=== PATIENT | female | born 1950 | race Caucasian/White ===

== ENCOUNTER 2022-11-10 09:47 | Outpatient (REF) | payer OTHER, SELFPAY ==
--- NOTE | ~2022-11-10 | XR_ITS ---
EXAMINATION: XR HIP, RIGHT WITH AP PELVIS CLINICAL INFORMATION: Pain. COMPARISON: Radiographs dated 03/31/2009. TECHNIQUE: AP and frog-leg lateral views of the right hip are submitted, together with a frontal view of the pelvis. FINDINGS: There is bony demineralization. There is marked narrowing of the superior right acetabular joint space, with subchondral sclerosis and slight peripheral osteophyte formation of the articular surfaces. The left acetabular joint space is well-maintained. The femoral heads are smooth. There is no fracture or dislocation. The sacroiliac joints are symmetric and well-maintained, and the pubic symphysis is intact. No foreign body is seen. There are incompletely characterized degenerative changes of the lumbar spine. A spinal stimulator device is noted. XR/XR hip RT w PEL1V IMPRESSION: There is marked osteoarthritic change of the right hip, and no unusual degenerative change is seen of the left hip. No fracture or dislocation is seen.
== END 2022-11-10 09:48 | disposition home or self-care (01) ==
LOC: HO.HOSX 09:47
PROVIDERS: PCP Family Medicine; Referring Provider Physical Medicine & Rehabilitation; Visit Provider Physician Assistant
DX: M53.3 Sacrococcygeal disorders, not elsewhere classified (principal); M54.50 Low back pain, unspecified; G89.29 Other chronic pain
CPT/HCPCS: 73502

== ENCOUNTER 2022-11-10 09:47 | Outpatient (AMB) | payer OTHER, SELFPAY ==
--- NOTE | 2022-11-10 10:25 | HO.SPINEOV ---
Intake Intake Visit Reasons: Disorder of sacrum Intake Note: Ms. Soria is here today c/o low back to buttock pain. MRI done @ [place]. Wash Barrel Leader Required: No Allergies ampicillin Allergy (Unknown, Verified 12/27/21 10:18) swelling cephalexin [Keflex] Allergy (Unknown, Verified 12/27/21 10:18) unknown Clindamycin HCl Allergy (Unknown, Unverified 12/27/21 10:18) itching oxaprozin [Daypro] Allergy (Unknown, Verified 12/27/21 10:18) unknown penicillin G Allergy (Unknown, Verified 12/27/21 10:18) Rash, itching and swelling in limbs penicillin V Allergy (Unknown, Verified 12/27/21 10:18) swelling Sulfa (Sulfonamide Antibiotics) Allergy (Unknown, Unverified 12/27/21 10:18) redness/fever tetracycline Allergy (Unknown, Unverified 12/27/21 10:18) SOB Assessment & Plan Assessment & Plan (1) Back pain: Code(s): M54.9 - Dorsalgia, unspecified Plan Dear Dr Flores, Thank you for referring Mrs Soria to our office today. This is a 72-year-old female presents to the office today for evaluation of a pain in her low back that goes down into her right groin anteriorly into her anterior thigh in her knee. The symptoms started abruptly about fiber 6 years ago and have never gone away. There was no inciting event, no trauma. She has had extensive workups which have all been difficult to point in any specific diagnosis. She was seen in your office and underwent an SI joint injection and did get some temporary relief over the course of a day or 2 from an SI joint block. She is here today to see us for evaluation of that. The patient tells me that she has the pain all day every day even at night. It is related to activity and standing but does not necessarily go away when she sits down. Sleeping is very difficult. She has undergone trials of anti-inflammatories, Tylenol. She did try gabapentin but it made her gain weight. She ultimately underwent spinal cord stimulator as well and that does help a little bit. She does not have any recent imaging to discuss today. PMH: She has a very complicated medical history, including diabetes, familial Mediterranean fever, fibromyalgia, chronic fatigue, restless legs, hematoma [place] psis, hypothyroidism, IBS, GERD, hypertension, high cholesterol, previous anterior cervical fusion, sleep apnea, cirrhosis of the liver of unknown origin, she has a cardiomyopathy but tells me that her heart function is okay, she has had multiple orthopedic surgeries, she has also had multiple abdominal surgeries related to the familial Mediterranean fever. She has history of shoulder replacement, spinal cord stimulator Social hx: She does not smoke Medications: Medications include insulin, levothyroxine, nitroglycerin, [place] loperamide, olopatadine eyedrops, pr max of Kurt, problem statin, Lipitor, metoprolol, B12 shot, baclofen, cetirizine, colchicine, diclofenac, duloxetine, famotidine, Flonase, hydrochlorothiazide, Ozempic Allergies: See the [employer] list for her allergies Physical exam: She is awake alert oriented no acute distress, she does have difficulty standing up and does point to pain in her lower back, she does have some finger Kenney positive test but she does diffusely point to her low back when she describes her back pain. On motor exam she has full strength, she has a tremendous amount of pain with internal and external rotation of her right hip. She also has contralateral positive KAYLIE sign giving her pain in her low back when she uses her left leg for testing giving her centralized low back pain. Reflexes are normal. Imaging review: I have an old lumbar MRI showing degenerative disc disease at L4-5 Impression: This is a complicated 72-year-old woman with spontaneous onset of pain in her low back going into her right anterior groin down her right anterior thigh into her knee for about 5-6 years which has never gone away or gotten better. No and has been able to exactly explain her what the diagnosis is. She tells me that she has had an extensive workup. The only thing that seems to have given her little bit of relief was an SI joint injection. She also had a spinal cord stimulator placed which also was given her little bit of relief. She did all the other conservative management therapies including PT etc. medication trials. On my physical exam, she has a tremendous amount of pain localizing over her right hip with internal and external rotation so I would like to get a right hip x-ray just to confirm that this is not part of the clinical presentation. She does have some physical exam findings compatible with SI joint irritation but describes to me diffuse low back pain and does not really localize it to 1 side or the other. I would like to get a lumbar MRI more updated to evaluate the status of her low back as some of her symptoms do sound radicular. Once I have the hip x-rays and a lumbar MRI I will see her back in the office. The patient will need to have someone from the spinal cord stimulator company approve that she can actually get an MRI. If not we will get a CT scan of her back. Thank you for allowing us to care for your patient. The total time spent with this visit with this patient was 45 minutes reviewing history, physical exam, lumbar imaging review, and implementation of treatment plan or further diagnostic testing Ariel Hernández MD,PhD [facility] Orders: Orders XR pelvis min 3V Today G89.29 - Other chronic pain, M53.3 - Sacrococcygeal disorders, not elsewhere classified XR hip RT min 2V Today G89.29 - Other chronic pain, M53.3 - Sacrococcygeal disorders, not elsewhere classified MR lumbar spine wo con Today M54.9 - Dorsalgia, unspecified Coding Level of Care Code New Pt Level 4 (87032) Diagnoses Back pain M54.9
== END 2022-11-10 11:59 | disposition home or self-care (01) ==
PROVIDERS: PCP Family Medicine; Referring Provider Physical Medicine & Rehabilitation; Visit Provider Physician Assistant
DX: M54.9 Dorsalgia, unspecified (principal)
CPT/HCPCS: 99204

== ENCOUNTER 2022-11-23 07:38 | Outpatient (REF) | payer OTHER, SELFPAY ==
--- NOTE | ~2022-11-23 | XR_ITS ---
EXAMINATION: XR HIP, RIGHT CLINICAL INFORMATION: Pain COMPARISON: Hip radiographs 11/02/2022 TECHNIQUE: Two views of the right hip. FINDINGS: No acute fracture or dislocation. Advanced degenerative changes of the hip with complete loss of superolateral joint space, subchondral sclerosis and cystic change and mild lateral subluxation of the femoral head with respect to the acetabulum. Partially imaged generator device overlies the left hemipelvis. Degenerative disc disease in the visualized lower lumbosacral spine. Soft tissues are unremarkable. XR/XR hip RT min 2V IMPRESSION: Advanced degenerative changes of the right hip.
== END 2022-11-23 07:39 | disposition home or self-care (01) ==
LOC: HO.HOSX 07:38
PROVIDERS: Visit Provider Orthopaedic Surgery
DX: M16.11 Unilateral primary osteoarthritis, right hip (principal)
CPT/HCPCS: 73502

== ENCOUNTER 2022-11-23 07:59 | Outpatient (AMB) | payer OTHER, SELFPAY ==
--- NOTE | 2022-11-23 08:07 | MHC.OFFVIS ---
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 Patient reports that she has had ongoing right hip pain for about 10-15 years now. She reports that she has history of arthrogram as well as SI injections. SI injections were more helpful than the arthrogram. The injections only lasted about a week. Her pain is felt in the groin and wraps around the lateral aspect of the hip to the upper buttoc region, Pain radiates down the leg while weight bearing. She has numbness and tingling, but she believed this may be due to her spine. The patient has difficulty walking even short distances because of her hip pain and low back pain. She does walk with a cane. Allergies ampicillin Allergy (Unknown, Verified 12/27/21 10:18) swelling cephalexin [Keflex] Allergy (Unknown, Verified 12/27/21 10:18) unknown Clindamycin HCl Allergy (Unknown, Unverified 12/27/21 10:18) itching oxaprozin [Daypro] Allergy (Unknown, Verified 12/27/21 10:18) unknown penicillin G Allergy (Unknown, Verified 12/27/21 10:18) Rash, itching and swelling in limbs penicillin V Allergy (Unknown, Verified 12/27/21 10:18) swelling Sulfa (Sulfonamide Antibiotics) Allergy (Unknown, Unverified 12/27/21 10:18) redness/fever tetracycline Allergy (Unknown, Unverified 12/27/21 10:18) SOB Medication List - Last Reviewed 11/23/22 by Stephanie Chacon, [facility] albuterol sulfate 90 mcg/actuation 0 mcg inhalation atorvastatin 20 mg PO DAILY baclofen 10 mg PO QID bisacodyl (Gentle Laxative (bisacodyl)) 20 mg PO DAILY blood sugar diagnostic ([employer] Verio test strips) As directed colchicine (gout) 0.6 mg PO DAILY cyanocobalamin (vitamin B-12) (Vitamin B-12) 1,000 mcg PO DAILY epinephrine IM famotidine 40 mg PO BID fluticasone propionate 50 mcg/actuation sprays intranasal hydrochlorothiazide 12.5 mg PO DAILY levothyroxine 125 mcg PO DAILY lisinopril 20 mg PO DAILY metoprolol succinate ER 25 mg PO DAILY nitroglycerin 0 mg sublingual pen needle, diabetic (BD Sun 2nd Gen Pen Needle) As directed pioglitazone 15 mg PO DAILY pramipexole 0.5 mg PO BID semaglutide (Ozempic) mg subcut sumatriptan succinate 100 mg PO DAILY PRN PFSH Medical History Chronic fatigue Cirrhosis COPD (chronic obstructive pulmonary disease) Diabetes Fibromyalgia GERD (gastroesophageal reflux disease) HTN (hypertension) Hypothyroidism IBS (irritable bowel syndrome) Mediterranean fever Obstructive sleep apnea Restless legs syndrome (RLS) TMJ (dislocation of temporomandibular joint) Surgical History H/O abdominal surgery H/O breast surgery Hx of cervical spine surgery Hx of shoulder replacement S/P insertion of spinal cord stimulator Family History Sister Arthritis Father Clot Other Muscular dystrophy Social History Alcohol intake: never Patient Tobacco Use Status: Never used Tobacco Current occupational status: disabled Physical Exam Vital Signs: BMI result Body Mass Index 29.8 Const Other: Well-nourished well-developed very friendly female awake alert and oriented x3 in no acute distress Extrem Other: Bilateral lower extremity examination shows good capillary refill, no skin lesions noted, normal sensation light touch Right hip examination shows decreased range of motion when compared to her left hip, pain with range of motion, no tenderness over her bursa Results Reviewed Results Reviewed: X-rays of the patient's right hip taken today show severe joint space narrowing with grade 4 [id number] arthritis, subchondral sclerosis, osteophyte formation, no acute bony abnormalities Assessment & Plan Assessment & Plan (1) Arthritis of right hip: Code(s): M16.11 - Unilateral primary osteoarthritis, right hip Plan Ms. Soria presents with right hip pain due to degenerative joint disease as well as low back pain and right sacroiliac pain. I had a lengthy discussion with the patient regarding the treatment options. The patient wishes to hold off on right total hip replacement surgery for as long as possible. I agree with this plan. She will continue with her home exercise program. She will follow up with her back specialist as scheduled. She will follow up with me on an as-needed basis should her right hip pain worsen. Feel free to call me at any time should questions regarding her orthopedic management arise. Thank you very much for asking me to see this very friendly patient. I spent 22 minutes in reviewing the patient's records and imaging studies, seeing the patient and documenting in the medical record. Orders: Orders XR hip RT min 2V Today M25.551 - Pain in right hip Coding Level of Care Code New Pt Level 2 (17983) Diagnoses Arthritis of right hip M16.11
[2022-11-23 08:11] VITALS: BMI 29.8
== END 2022-11-23 08:30 | disposition home or self-care (01) ==
PROVIDERS: PCP Family Medicine; Visit Provider Orthopaedic Surgery
DX: M16.11 Unilateral primary osteoarthritis, right hip (principal)
CPT/HCPCS: 99202

== ENCOUNTER 2023-02-14 08:04 | Outpatient (REF) | payer OTHER, SELFPAY ==
--- NOTE | ~2023-02-14 | MR_ITS ---
EXAMINATION: MR LUMBAR SPINE WITHOUT CONTRAST CLINICAL INFORMATION: Low back pain and leg pain with tingling. The patient states right-sided symptoms. COMPARISON: There are no prior studies available for comparison at time of dictation. TECHNIQUE: MRI of the lumbar spine was obtained using routine sequences without contrast. FINDINGS: VERTEBRAL BODIES AND PARASPINAL STRUCTURES: There is a sigmoid scoliosis which is convex to the right at L1-L2 and toward the left at L4. There is mild rightward subluxation of L2 on L3. There is a 2 mm grade 1 anterolisthesis of L4 on L5. There are mild retrolistheses of L1 on L2 and L2 on L3. There is multilevel narrowing of intervertebral disc height which is most severe on the left at L1-L2 and on the right at L3-L4 and L4-L5. There are multilevel degenerative endplate contour changes. Mild edematous endplate signal is seen toward the left at L2-L3 and toward the right at L1-L2 and L4-L5. There are Schmorl's nodes at multiple levels, most prominent at L1-L2 and L2-L3. Vertebral body heights are maintained, and no fractures are demonstrated. The visualized retroperitoneal and pelvic structures are unremarkable. There is susceptibility artifact in the left paraspinal soft tissues laterally, consistent with a previously described stimulator. There is susceptibility artifact from the stimulator leads extending cephalad. CONUS MEDULLARIS AND CAUDA EQUINA: Normal, terminating at the level of L1. The lower thoracic spinal cord appears normal. The cauda equina nerve roots appear normal. There is mild fat in a non-thickened filum terminale.. SPINAL LEVELS: T10-T11: On the sagittal images there is a posterior disc protrusion with an extruded component extending cephalad behind the body of T10 with some effacement of CSF ventral to the cord, but without definite spinal cord compression. The neural foramina appear patent bilaterally. T11-T12: There is a small posterior disc protrusion extending into the right neural foramen without definite exiting nerve root impingement. There is no central stenosis. L1-L2: The facet joints appear normal bilaterally. There is a broad-based posterior disc protrusion which flattens the ventral thecal sac but there is no central stenosis. There is a left foraminal disc protrusion extending far laterally with impingement on the exiting and extra foraminal segments of the left L1 nerve root. L2-L3: There is moderate bilateral facet arthropathy. There is a shallow posterior disc protrusion with minimal mass effect on the ventral thecal sac and there is no central stenosis. The neural foramina are patent bilaterally. L3-L4: There is severe bilateral facet arthropathy with ligamenta flava hypertrophy. There is a central and left-sided disc protrusion without definite exiting nerve root impingement. There is no central stenosis. L4-L5: There is markedly severe bilateral facet arthropathy. There is unroofing of the disc as a result of the anterolisthesis. There is a right foraminal disc protrusion with impingement on the exiting right L4 nerve root. There is mild narrowing of the right subarticular recess. There is no central stenosis. L5-S1: There is markedly severe left and severe right facet arthropathy. There is a shallow posterior disc protrusion with minimal mass effect on the ventral thecal sac. There is a small extruded component extending behind the body of L5 in the midline. There are inferior foraminal disc protrusions bilaterally with annular fissures, without definite exiting nerve root impingement. There is no central stenosis. MR/MR lumbar spine wo con IMPRESSION: 1. At L1-L2 there is a posterior disc protrusion extending far laterally with impingement on the exiting and extraforaminal segments of the left L1 nerve root. There is no central stenosis. 2. At L4-L5 there is markedly severe facet arthropathy and there is an anterolisthesis. There is a right foraminal disc protrusion impinging on the exiting right L4 nerve root. There is no central stenosis. 3. At L5-S1 there is markedly severe left and severe right facet arthropathy. There is a shallow posterior disc protrusion with a small extruded component. There is no central stenosis or foraminal nerve root impingement. 4. Spondylitic and facet arthropathic changes are also demonstrated at other levels in the lower thoracic and in the lumbar spine as described above. 5. Susceptibility artifact from a stimulator generator and stimulator leads is partially demonstrated.
== END 2023-02-14 08:05 | disposition home or self-care (01) ==
LOC: HO.MRI 08:04
PROVIDERS: PCP Family Medicine; Visit Provider Physician Assistant
DX: M54.9 Dorsalgia, unspecified (principal)
CPT/HCPCS: 72148

== ENCOUNTER 2023-03-02 11:25 | Outpatient (AMB) | payer OTHER, SELFPAY ==
--- NOTE | 2023-03-02 11:27 | HO.SPINEOV ---
Intake Intake Visit Reasons: MRI follow up Intake Note: Ms. Soria is her today to discuss the results of her MRI. Hourly Sign Language Interpreter Required: No Allergies ampicillin Allergy (Unknown, Verified 12/27/21 10:18) swelling cephalexin [Keflex] Allergy (Unknown, Verified 12/27/21 10:18) unknown Clindamycin HCl Allergy (Unknown, Unverified 12/27/21 10:18) itching oxaprozin [Daypro] Allergy (Unknown, Verified 12/27/21 10:18) unknown penicillin G Allergy (Unknown, Verified 12/27/21 10:18) Rash, itching and swelling in limbs penicillin V Allergy (Unknown, Verified 12/27/21 10:18) swelling Sulfa (Sulfonamide Antibiotics) Allergy (Unknown, Unverified 12/27/21 10:18) redness/fever tetracycline Allergy (Unknown, Unverified 12/27/21 10:18) SOB Assessment & Plan Assessment & Plan (1) Chronic SI joint pain: Code(s): M53.3 - Sacrococcygeal disorders, not elsewhere classified; G89.29 - Other chronic pain Plan Mrs Soria is here in follow up today. She has a complicated history, please refer to my previous note for all of her medical conditions. She is here today to follow-up on her MRI done at [place]. Her main complaints are back pain and right hip pain going down into her anterior thigh. The symptoms are aggravated with standing walking but do not necessarily go away when she sits down. Her MRI shows diffuse arthritis of the lumbar spine, worse at L1-2 and L2-3 with scoliotic curvature and a grade 1 spondylolisthesis at L4-5. I do not see any significant foraminal or central canal stenosis. As outlined in my previous note, the patient has overlap of multiple potential pain sources. The MRI confirms as I suspected that she has arthritis of her lower back. She has a multi day level degenerative disc problem which is typically the hardest to treat with surgery as it would involve a multilevel instrumented fusion. She has severe right hip arthritis and is a candidate for total hip arthroplasty. She is followed by Dr. Ramos for this. She has also had some temporary relief from an SI joint injection done by Dr. Flores at [facility]. From the standpoint of her complaints, it sounds to me like the right hip pain with walking seems to be the main pain generator in her life. Explained to her that she can have overlapping problems with multiple arthritic areas of her body which may compound on each other. I told her that I think she should consider getting her hip done 1st and see if that does not give her enough relief over the area of the hip and groin and thigh that she may not end up needing an extensive lumbar fusion. She is going to have Dr. Ramos re-evaluate her. I think the SI joint inflammation is likely a side effect of the hip arthritis and the scoliosis. Total amount of time spent in this visit was 20 minutes in discussion of symptoms, lumbar MRI imaging results and subsequent plan of care Ariel Hernández MD,PhD [facility] Orders: Orders XR lumbar spine 4V min Today G89.29 - Other chronic pain, M53.3 - Sacrococcygeal disorders, not elsewhere classified Coding Level of Care Code Est Pt Level 3 (43875) Diagnoses Chronic SI joint pain M53.3; G89.29
== END 2023-03-02 12:02 | disposition home or self-care (01) ==
PROVIDERS: PCP Family Medicine; Visit Provider Physician Assistant
DX: M53.3 Sacrococcygeal disorders, not elsewhere classified (principal); G89.29 Other chronic pain
CPT/HCPCS: 99213

== ENCOUNTER 2023-03-02 11:25 | Outpatient (REF) | payer OTHER, SELFPAY ==
--- NOTE | ~2023-03-02 | XR_ITS ---
EXAMINATION: XR LUMBOSACRAL SPINE WITH OBLIQUES CLINICAL INFORMATION: Sacrococcygeal disorders, not elsewhere classified. COMPARISON: None available. TECHNIQUE: AP, both oblique, and lateral views of the lumbar spine. Lateral view of the lumbosacral junction. FINDINGS: There is bony demineralization. There is a moderate thoracolumbar dextroscoliosis. There is multi-level thoracolumbar degenerative disc disease and spondylosis. Degenerative disc disease is most pronounced leftward at T12-L1 and L1-L2, where it is moderate, and rightward as L4-L5, where it is marked. No acute fracture or spondylolisthesis is seen. There is multi-level lumbar spondylosis and facet arthropathy. There are aortoiliac atherosclerotic calcifications. A thoracic spinal stimulator device is noted. There are aortoiliac atherosclerotic calcifications. XR/XR lumbar spine 4V min IMPRESSION: 1. There is a moderate thoracolumbar dextroscoliosis. 2. There is multi-level thoracolumbar degenerative disc disease, spondylosis and facet arthropathy. Degenerative disc disease is particularly pronounced at T12-L1, L1-L2 and L4-L5.
== END 2023-03-02 11:26 | disposition home or self-care (01) ==
LOC: HO.HOSX 11:25
PROVIDERS: PCP Family Medicine; Visit Provider Physician Assistant
DX: M53.3 Sacrococcygeal disorders, not elsewhere classified (principal); G89.29 Other chronic pain
CPT/HCPCS: 72110

== ENCOUNTER 2023-03-14 13:58 | Outpatient (AMB) | payer OTHER, SELFPAY ==
--- NOTE | 2023-03-14 14:01 | MHC.OFFVIS ---
Intake Intake Visit Reasons: ov- Arthritis of right hip Intake Note: Meron is a 72 year old female who presents today for a follow up visit for her right hip pain. She describes her hip pain as sharp and severe in nature, 01/23. Her pain has gotten worse over the last few years in spite of continued non operative treatments. Most of the pain is located within her right groin. She has done physical therapy for 12 weeks over the last 6 months which aggravated her pain. She walks with a cane because of her pain. She has tried Tylenol and anti-inflammatory medicines which gave her minimal relief. She has difficulty walking even short distances because of her pain. At this point her right hip pain is interfering with her activities of daily living and her of the sleep well through the night. Allergies ampicillin Allergy (Unknown, Verified 03/14/23 14:05) swelling cephalexin [Keflex] Allergy (Unknown, Verified 03/14/23 14:05) unknown Clindamycin HCl Allergy (Unknown, Verified 03/14/23 14:05) itching oxaprozin [Daypro] Allergy (Unknown, Verified 03/14/23 14:05) unknown penicillin G Allergy (Unknown, Verified 03/14/23 14:05) Rash, itching and swelling in limbs penicillin V Allergy (Unknown, Verified 03/14/23 14:05) swelling Sulfa (Sulfonamide Antibiotics) Allergy (Unknown, Verified 03/14/23 14:05) redness/fever tetracycline Allergy (Unknown, Verified 03/14/23 14:05) SOB Medication List - Last Reconciled 03/14/23 by Archie Ramos MD albuterol sulfate 90 mcg/actuation 0 mcg inhalation atorvastatin 20 mg PO DAILY baclofen 10 mg PO QID bisacodyl (Gentle Laxative (bisacodyl)) 20 mg PO DAILY blood sugar diagnostic ([employer] Verio test strips) As directed cyanocobalamin (vitamin B-12) (Vitamin B-12) 1,000 mcg PO DAILY epinephrine IM famotidine 40 mg PO BID fluticasone propionate 50 mcg/actuation sprays intranasal hydrochlorothiazide 12.5 mg PO DAILY levothyroxine 125 mcg PO DAILY lisinopril 20 mg PO DAILY metoprolol succinate ER 25 mg PO DAILY nitroglycerin 0 mg sublingual pen needle, diabetic (BD Sun 2nd Gen Pen Needle) As directed pioglitazone 15 mg PO DAILY pramipexole 0.5 mg PO BID semaglutide (Ozempic) mg subcut sumatriptan succinate 100 mg PO DAILY PRN PFSH Medical History Chronic fatigue Cirrhosis COPD (chronic obstructive pulmonary disease) Diabetes Fibromyalgia GERD (gastroesophageal reflux disease) HTN (hypertension) Hypothyroidism IBS (irritable bowel syndrome) Mediterranean fever Obstructive sleep apnea Restless legs syndrome (RLS) TMJ (dislocation of temporomandibular joint) Surgical History H/O abdominal surgery H/O breast surgery Hx of cervical spine surgery Hx of shoulder replacement S/P insertion of spinal cord stimulator Family History Sister Arthritis Father Clot Other Muscular dystrophy Social History Alcohol intake: never Patient Tobacco Use Status: Never used Tobacco Current occupational status: disabled Physical Exam Const Other: Well-nourished well-developed very friendly female awake alert and oriented x3 in no acute distress Extrem Other: Bilateral lower extremity examination shows good capillary refill, no skin lesions noted, normal sensation light touch Right hip examination shows decreased range of motion when compared to her left hip, pain with range of motion, no tenderness over her bursa Results Reviewed Results Reviewed: X-rays of the patient's right hip show end-stage degenerative joint disease with grade 4 [id number] arthritis, subchondral sclerosis, osteophyte formation, no acute bony abnormalities Assessment & Plan Assessment & Plan (1) Arthritis of right hip: Code(s): M16.11 - Unilateral primary osteoarthritis, right hip Plan Ms. Soria presents with progressively worsening right hip pain due to end-stage degenerative joint disease. I had a lengthy discussion with the patient regarding the treatment options. At this point she has failed continued non operative treatments. The risks and benefits of right total replacement surgery were discussed at length with the patient. The patient wishes to proceed with surgery. She will be scheduled for our next available date. I will see her back 1 week prior to her surgery to answer any final questions that she might have. The patient will follow-up as instructed. Feel free to call me at any time should questions regarding her orthopedic management arise. I spent 22 minutes in reviewing the patient's records and imaging studies, seeing the patient and documenting in the medical record. Coding Level of Care Code Est Pt Level 2 (09219) Diagnoses Arthritis of right hip M16.11
== END 2023-03-14 14:43 | disposition home or self-care (01) ==
PROVIDERS: PCP Family Medicine; Visit Provider Orthopaedic Surgery
DX: M16.11 Unilateral primary osteoarthritis, right hip (principal)
CPT/HCPCS: 99212

== ENCOUNTER → 2023-03-14 13:58 | Outpatient (BNVA) | payer OTHER, SELFPAY | PROVIDERS: PCP Family Medicine; Visit Provider Orthopaedic Surgery ==

== ENCOUNTER → 2023-06-20 10:37 | Outpatient (AMB) | payer OTHER, SELFPAY ==
[2023-06-20 10:39] VITALS: BMI 29.8
--- NOTE | 2023-06-20 10:39 | MHC.OFFVIS ---
Intake Vital Signs 06/20/23 10:39 Height 5 ft 2 in Weight 163 lb BMI 29.8 Intake Visit Reasons: Preop-RT MANN 06/25/23 Intake Note: Meron is a 72 year old female who presents today with complaints of progressively worsening right hip pain. She describes her hip pain as sharp and severe in nature, 01/23. Her pain has gotten worse over the last few years in spite of continued non operative treatments. Most of the pain is located within her right groin. She has done physical therapy for 12 weeks over the last 6 months which aggravated her pain. She walks with a cane because of her pain. She has tried Tylenol and anti-inflammatory medicines which gave her minimal relief. She has difficulty walking even short distances because of her pain. At this point her right hip pain is interfering with her activities of daily living and her of the sleep well through the night. Allergies ampicillin Allergy (Intermediate, Verified 06/20/23 10:47) swelling Clindamycin HCl Allergy (Intermediate, Verified 06/20/23 10:47) itching Penicillins Allergy (Intermediate, Verified 06/20/23 10:47) rash/itching/swelling Sulfa (Sulfonamide Antibiotics) Allergy (Intermediate, Verified 06/20/23 10:47) redness/fever tetracycline Allergy (Intermediate, Verified 06/20/23 10:47) SOB cephalexin [Keflex] Allergy (Unknown, Verified 06/20/23 10:47) unknown reaction-was long ago oxaprozin [Daypro] Allergy (Unknown, Verified 06/20/23 10:47) reaction unknown Medication List - Last Reconciled 06/20/23 by Archie Ramos MD albuterol sulfate 90 mcg/actuation 1 inh inhalation Q4H PRN atorvastatin 20 mg PO BEDTIME baclofen 10 mg PO QID blood sugar diagnostic (OneTouch Verio test strips) As directed cetirizine 10 mg PO BEDTIME cholecalciferol (vitamin D3) (Vitamin D3) 50 mcg PO QAM colchicine 0.3 mg PO QAM cyanocobalamin (vitamin B-12) (Vitamin B-12) 1,000 mcg PO DAILY epinephrine 0.3 mg IM ONCE PRN famotidine 40 mg PO BID fluticasone propionate 50 mcg/actuation 1 spray intranasal DAILY hydrochlorothiazide 12.5 mg PO QAM insulin glargine (Lantus Solostar U-100 Insulin) 24 units subcut BEDTIME levothyroxine 125 mcg PO QAM loperamide 2 mg PO Q4H PRN magnesium 200 mg PO QAM metoprolol succinate ER 25 mg PO QAM nitroglycerin 0.3 mg sublingual ONCE PRN pen needle, diabetic (BD Sun 2nd Gen Pen Needle) As directed potassium chloride ER 10 mEq PO QAM sumatriptan succinate 100 mg PO DAILY PRN PFSH Medical History Scoliosis PONV (postoperative nausea and vomiting) Skin cancer Arthritis Cirrhosis Asthma Restless legs syndrome (RLS) GERD (gastroesophageal reflux disease) TMJ (dislocation of temporomandibular joint) Obstructive sleep apnea Diabetes Hypothyroidism Fibromyalgia Mediterranean fever IBS (irritable bowel syndrome) COPD (chronic obstructive pulmonary disease) Chronic fatigue HTN (hypertension) Surgical History History of esophagogastroduodenoscopy (EGD) H/O colonoscopy Hx of hysterectomy Hx of cardiac catheterization Hx of dilation and curettage S/P insertion of spinal cord stimulator H/O abdominal surgery H/O breast surgery Hx of shoulder replacement Hx of cervical spine surgery Family History Sister Arthritis Father Clot Other Muscular dystrophy Social History Are you a primary hemodialysis patient care specialist to a significant other at home: No Do you presently have visiting nurse or other home services: Yes (home health aid) Alcohol intake: never Patient Tobacco Use Status: Never used Tobacco Current occupational status: disabled Physical Exam Vital Signs: BMI result Body Mass Index 29.8 Const Other: Well-nourished well-developed very friendly female awake alert and oriented x3 in no acute distress Extrem Other: Right hip examination shows decreased range of motion when compared to her left hip, pain with range of motion, no tenderness over her bursa Results Reviewed Results Reviewed: X-rays of the patient's right hip show end-stage degenerative joint disease with grade 4 [id number] arthritis, subchondral sclerosis, osteophyte formation, no acute bony abnormalities Assessment & Plan Assessment & Plan (1) Arthritis of right hip: Code(s): M16.11 - Unilateral primary osteoarthritis, right hip Plan Ms. Soria presents with progressively worsening right hip pain due to end-stage degenerative joint disease. I had a lengthy discussion with the patient regarding the treatment options. At this point she has failed continued non operative treatments. The risks and benefits of right total hip replacement surgery were discussed at length with the patient. The patient wishes to proceed with surgery. financial services consultant will be consulted following her surgery for home physical therapy and nursing. The patient will follow-up as instructed. Feel free to call me at any time should questions regarding her orthopedic management arise. I spent 22 minutes in reviewing the patient's records and imaging studies, seeing the patient and documenting in the medical record. Coding Level of Care Code Est Pt Level 2 (48966) Diagnoses Arthritis of right hip M16.11
== END ==
PROVIDERS: PCP Family Medicine; Visit Provider Orthopaedic Surgery
DX: M16.11 Unilateral primary osteoarthritis, right hip (principal)
CPT/HCPCS: 99213

== ENCOUNTER → 2023-06-20 10:37 | Outpatient (BNVA) | payer OTHER, SELFPAY | PROVIDERS: PCP Family Medicine; Visit Provider Orthopaedic Surgery ==

== ENCOUNTER 2023-06-25 06:33 | Inpatient (IN) | payer OTHER, SELFPAY ==
[2023-06-18 12:24] VITALS: BP 147/70; PULSE 65; RESP 20; O2SAT 97; BMI 29.6
--- NOTE | 2023-06-18 12:37 | P.CONAN_ITS ---
Documented by User: Kitty Johnson NP 06/22/23 09:16 HPI - Anesthesia Eval Consult details Narrative: 72yo F for Right Hip Total Replacement, 06/25/23 Consider glidescope d/t cspine hx and TMJ Medically cleared No recent illness No CP/SOB within limits of pain Asthma/COPD. Albuterol very rare. Mediterranean fever. Follows rheum. Last office visit 03/2023. Colchicine restarted. Cirrhosis r/t FMF/colchicine. GERD. Mostly controlled with H2 block Hx of Cspine surgery. TMJ. Not that bad . Has never locked open. BLAIR. CPAP with O2 QHS DM. Blood sugar monitor. Will have on RUE. Lantus Spinal stim pack Left Hip. PMFSH Active Problems Active Problems: All Active Problems (Updated 06/18/23 @ 12:23 by Meron Núñez RN) Arthritis of right hip (Acute) Right hip pain (Acute) Chronic SI joint pain (Acute) Back pain (Acute) Occasional tremors (Acute) Vertigo (Acute) Cognitive changes (Acute) Cirrhosis (Acute) Restless legs syndrome (RLS) (Acute) GERD (gastroesophageal reflux disease) (Acute) TMJ (dislocation of temporomandibular joint) (Acute) S/P insertion of spinal cord stimulator (Acute) Obstructive sleep apnea (Acute) Diabetes (Acute) Hypothyroidism (Acute) Fibromyalgia (Acute) IBS (irritable bowel syndrome) (Acute) COPD (chronic obstructive pulmonary disease) (Acute) Chronic fatigue (Acute) HTN (hypertension) (Acute) Past Medical History Medical History Scoliosis PONV (postoperative nausea and vomiting) Skin cancer Arthritis Cirrhosis Asthma Restless legs syndrome (RLS) GERD (gastroesophageal reflux disease) TMJ (dislocation of temporomandibular joint) Obstructive sleep apnea Diabetes Hypothyroidism Fibromyalgia Mediterranean fever IBS (irritable bowel syndrome) COPD (chronic obstructive pulmonary disease) Chronic fatigue HTN (hypertension) Family History Family History Sister Arthritis Father Clot Other Muscular dystrophy Family history of problems with anesthesia: No Surgical History Surgical History History of esophagogastroduodenoscopy (EGD) H/O colonoscopy Hx of hysterectomy Hx of cardiac catheterization Hx of dilation and curettage S/P insertion of spinal cord stimulator H/O abdominal surgery H/O breast surgery Hx of shoulder replacement Hx of cervical spine surgery History of Problems with Anesthesia: Yes (PONV - scop patch works) Social History Social History Are you a primary primary care nurse practitioner to a significant other at home: No Do you presently have visiting nurse or other home services: Yes (home health aid) Alcohol intake: never Patient Tobacco Use Status: Never used Tobacco Use of substances other than those prescribed or required for medical reasons: No Have you been hit, kicked, punched, or otherwise hurt by someone within the past year? If so, by whom?: No Are you DNR?: No Advance Directives Information Provided: No (as above noted-advised to bring copy DOS) Advance Directives on File: No Recently lost weight without trying: No Eating poorly because of decreased appetite: No Nutrition Risks: No Nutritional Risk Poor oral hygiene: No (missing teeth) Current occupational status: disabled Meds Allergies Allergy/AdvReac Type Severity Reaction Status Date / Time ampicillin Allergy Intermediate swelling Verified 06/25/23 06:48 Clindamycin HCl Allergy Intermediate itching Verified 06/25/23 06:48 Penicillins Allergy Intermediate rash/itchin Verified 06/25/23 06:48 g/swelling Sulfa (Sulfonamide Allergy Intermediate redness/fev Verified 06/25/23 06:48 Antibiotics) er tetracycline Allergy Intermediate SOB Verified 06/25/23 06:48 cephalexin [Keflex] Allergy Unknown reaction Verified 06/25/23 06:48 unknown, long time ago oxaprozin [Daypro] Allergy Unknown reaction Verified 06/25/23 06:48 unknown, long time ago Home Medications Medication Instructions Recorded Confirmed Last Taken Type albuterol sulfate 90 mcg/actuation 1 inh inhalation Q4H PRN Shortness 12/27/21 06/25/23 06/25/23 History aerosol inhaler Of Breath Or Wheezing atorvastatin 20 mg tablet 20 mg PO BEDTIME 12/27/21 06/25/23 06/24/23 History baclofen 10 mg tablet 10 mg PO TID 12/27/21 06/25/23 06/24/23 History blood sugar diagnostic (OneTouch #10 ea 12/27/21 06/20/23 Unknown History Verio test strips) epinephrine 0.3 mg/0.3 mL 0.3 mg IM ONCE PRN Anaphylaxis 12/27/21 06/20/23 Unknown History injection, auto-injector famotidine 40 mg tablet 40 mg PO BID 12/27/21 06/25/23 06/25/23 History fluticasone propionate 50 1 spray intranasal DAILY 12/27/21 06/25/23 06/24/23 History mcg/actuation nasal spray,suspension hydrochlorothiazide 12.5 mg tablet 12.5 mg PO QAM 12/27/21 06/25/23 06/23/23 History levothyroxine 125 mcg tablet 125 mcg PO QAM 12/27/21 06/25/23 06/25/23 History metoprolol succinate 25 mg 25 mg PO QAM 12/27/21 06/25/23 06/25/23 History tablet,extended release 24 hr nitroglycerin 0.3 mg sublingual 0.3 mg sublingual ONCE PRN Acid 12/27/21 06/25/23 Unknown History tablet Reflux pen needle, diabetic 32 gauge x #50 ea 12/27/21 06/20/23 Unknown History (BD Sun 2nd Gen Pen Needle) sumatriptan succinate 100 mg tablet 100 mg PO DAILY PRN Migraine 12/27/21 06/25/23 06/18/23 History Headache cetirizine 10 mg tablet 10 mg PO BEDTIME 06/18/23 06/25/23 06/24/23 History cholecalciferol (vitamin D3) 50 50 mcg PO QAM 06/18/23 06/25/23 06/24/23 History mcg (2,000 unit) capsule (Vitamin D3) colchicine 0.6 mg tablet 0.3 mg PO QAM 06/18/23 06/25/23 06/24/23 History insulin glargine 100 unit/mL (3 24 unit subcut BEDTIME 06/18/23 06/25/23 19:00 History mL) subcutaneous pen (Lantus 12 units Solostar U-100 Insulin) loperamide 2 mg capsule 2 mg PO Q4H PRN Loose Stool 06/18/23 06/20/23 Unknown History magnesium 200 mg tablet 200 mg PO QAM 06/18/23 06/25/23 06/18/23 History potassium chloride 10 mEq 10 meq PO QAM 06/18/23 06/25/23 06/18/23 History tablet,extended release Exam Height,Weight and Vital Signs: Height 5 ft 2 in Weight 73.5 kg Last Vital Signs Pulse 65 06/18/23 12:24 Resp 20 06/18/23 12:24 BP 147/70 H 06/18/23 12:24 Pulse Ox 97 06/18/23 12:24 O2 Del Method Room Air 06/18/23 12:24 Pertinent Lab Results Pertinent Lab Results: CBC and BMP 06/15/23 from outside facility [facility] Lab Results 06/18/23 06/18/23 Range/Units 13:11 13:19 PT 11.6 (11.1-13.3) SEC INR 1.0 (0.9-1.1) Total Bilirubin 0.3 (0.0-1.0) mg/dL Direct Bilirubin 0.1 (0.0-0.5) mg/dL AST 17 (5-31) U/L ALT 23 (0-31) U/L Alkaline Phosphatase 98 (39-117) U/L Total Protein 7.2 (6.5-8.0) g/dL Albumin 4.4 (3.5-5.0) g/dL Blood Type A Positive Antibody Screen NEGATIVE CBC and BMP 06/15/23 from outside facility [facility] Narrative Narrative: EKG 05/2023 SR @ 67 Minor right-precordial repol Airway TM Dist: >3cm Neck ROM: Limited Loose/Missing/Broken Teeth: Yes (Missing molars and crowned molars throughout) Heart: RRR Lungs: CTAB Assessment and Plan Assessment Anesthesia Assessment: Anesthesia Plan Discussed and PAT Visit Final Anesthetic Review Family History of Problems with Anesthesia: No History of Problems with Anesthesia: Yes (PONV - scop patch works) Documented by User: April Lindsey MD 06/25/23 08:15 PMFSH Past Medical History Medical History Scoliosis PONV (postoperative nausea and vomiting) Skin cancer Arthritis Cirrhosis Asthma Restless legs syndrome (RLS) GERD (gastroesophageal reflux disease) TMJ (dislocation of temporomandibular joint) Obstructive sleep apnea Diabetes Hypothyroidism Fibromyalgia Mediterranean fever IBS (irritable bowel syndrome) COPD (chronic obstructive pulmonary disease) Chronic fatigue HTN (hypertension) Family History Family History Sister Arthritis Father Clot Other Muscular dystrophy Surgical History Surgical History History of esophagogastroduodenoscopy (EGD) H/O colonoscopy Hx of hysterectomy Hx of cardiac catheterization Hx of dilation and curettage S/P insertion of spinal cord stimulator H/O abdominal surgery H/O breast surgery Hx of shoulder replacement Hx of cervical spine surgery Social History Social History Are you a primary primary care nurse practitioner to a significant other at home: No Do you presently have visiting nurse or other home services: Yes (home health aid) Alcohol intake: never Patient Tobacco Use Status: Never used Tobacco Use of substances other than those prescribed or required for medical reasons: No Have you been hit, kicked, punched, or otherwise hurt by someone within the past year? If so, by whom?: No Are you DNR?: No Advance Directives Information Provided: No (as above noted-advised to bring copy DOS) Advance Directives on File: No Recently lost weight without trying: No Eating poorly because of decreased appetite: No Nutrition Risks: No Nutritional Risk Poor oral hygiene: No (missing teeth) Current occupational status: disabled Meds Allergies Allergy/AdvReac Type Severity Reaction Status Date / Time ampicillin Allergy Intermediate swelling Verified 06/25/23 06:48 Clindamycin HCl Allergy Intermediate itching Verified 06/25/23 06:48 Penicillins Allergy Intermediate rash/itchin Verified 06/25/23 06:48 g/swelling Sulfa (Sulfonamide Allergy Intermediate redness/fev Verified 06/25/23 06:48 Antibiotics) er tetracycline Allergy Intermediate SOB Verified 06/25/23 06:48 cephalexin [Keflex] Allergy Unknown reaction Verified 06/25/23 06:48 unknown, long time ago oxaprozin [Daypro] Allergy Unknown reaction Verified 06/25/23 06:48 unknown, long time ago Home Medications Medication Instructions Recorded Confirmed Last Taken Type albuterol sulfate 90 mcg/actuation 1 inh inhalation Q4H PRN Shortness 12/27/21 06/25/23 06/25/23 History aerosol inhaler Of Breath Or Wheezing atorvastatin 20 mg tablet 20 mg PO BEDTIME 12/27/21 06/25/23 06/24/23 History baclofen 10 mg tablet 10 mg PO TID 12/27/21 06/25/23 06/24/23 History blood sugar diagnostic (OneTouch #10 ea 12/27/21 06/20/23 Unknown History Verio test strips) epinephrine 0.3 mg/0.3 mL 0.3 mg IM ONCE PRN Anaphylaxis 12/27/21 06/20/23 Unknown History injection, auto-injector famotidine 40 mg tablet 40 mg PO BID 12/27/21 06/25/23 06/25/23 History fluticasone propionate 50 1 spray intranasal DAILY 12/27/21 06/25/23 06/24/23 History mcg/actuation nasal spray,suspension hydrochlorothiazide 12.5 mg tablet 12.5 mg PO QAM 12/27/21 06/25/23 06/23/23 History levothyroxine 125 mcg tablet 125 mcg PO QAM 12/27/21 06/25/23 06/25/23 History metoprolol succinate 25 mg 25 mg PO QAM 12/27/21 06/25/23 06/25/23 History tablet,extended release 24 hr nitroglycerin 0.3 mg sublingual 0.3 mg sublingual ONCE PRN Acid 12/27/21 06/25/23 Unknown History tablet Reflux pen needle, diabetic 32 gauge x #50 ea 12/27/21 06/20/23 Unknown History (BD Sun 2nd Gen Pen Needle) sumatriptan succinate 100 mg tablet 100 mg PO DAILY PRN Migraine 12/27/21 06/25/23 06/18/23 History Headache cetirizine 10 mg tablet 10 mg PO BEDTIME 06/18/23 06/25/23 06/24/23 History cholecalciferol (vitamin D3) 50 50 mcg PO QAM 06/18/23 06/25/23 06/24/23 History mcg (2,000 unit) capsule (Vitamin D3) colchicine 0.6 mg tablet 0.3 mg PO QAM 06/18/23 06/25/23 06/24/23 History insulin glargine 100 unit/mL (3 24 unit subcut BEDTIME 06/18/23 06/25/23 06/24/23 19:00 History mL) subcutaneous pen (Lantus 12 units Solostar U-100 Insulin) loperamide 2 mg capsule 2 mg PO Q4H PRN Loose Stool 06/18/23 06/20/23 Unknown History magnesium 200 mg tablet 200 mg PO QAM 06/18/23 06/25/23 06/18/23 History potassium chloride 10 mEq 10 meq PO QAM 06/18/23 06/25/23 06/18/23 History tablet,extended release Exam Airway Mallampati Class: III (c spine problems , we shall intubate without extension using glide scope) Assessment and Plan Assessment Anesthesia Assessment: Chart Reviewed Final Anesthetic Review NPO: Yes ASA Class: III Final Preanesthetic Review: No Changes in Pt Med Stat, Meds/Allgs Chart Reviewed, Consent Obtained/Reviewed and Anes Risks/Benef Reviewed Patient Risk: Intermediate Procedure Risk: Intermediate Anesthetic Plan Anesthetic Plan: GA Disposition: Standard PACU
[2023-06-18 14:01] LABS: Prothrombin Time 11.6 SEC (11.1-13.3)
[2023-06-18 14:21] LABS: Alanine Aminotransferase 23 U/L (0-31); Albumin Level 4.4 g/dL (3.5-5.0); Alkaline Phosphatase 98 U/L (39-117); Aspartate Amino Transferase 17 U/L (5-31); Bilirubin Direct 0.1 mg/dL (0.0-0.5); Bilirubin Total 0.3 mg/dL (0.0-1.0); Total Protein 7.2 g/dL (6.5-8.0)
[2023-06-18 16:20] LABS: MRSA Nasal PCR NEGATIVE (Negative); SA Nasal PCR NEGATIVE (Negative)
[2023-06-25] VITALS (18 sets, daily range): BP systolic 108–180; BP diastolic 54–90; PULSE 59–100; RESP 8–18; TEMP 36.6–36.9; O2SAT 88–99
--- NOTE | ~2023-06-25 | XR_ITS ---
EXAMINATION: XR PELVIS CLINICAL INFORMATION: Right total hip arthroplasty. COMPARISON: Radiographs lumbar spine of 03/02/2023 and right hip of 11/23/2022. TECHNIQUE: AP view of the pelvis. FINDINGS: Status post right hip total arthroplasty with acetabular screw. Hardware appears intact. Moderate degenerative changes in the left hip. Electronic pack partially imaged overlying the upper aspect of the left sacroiliac joint. Moderate degenerative changes in the bilateral sacroiliac joints. XR/XR pelvis 1-2V IMPRESSION: 1. Status post right hip total arthroplasty with acetabular screw. Hardware appears intact. 2. Moderate degenerative changes in the left hip.
--- NOTE | 2023-06-25 07:09 | PHA.MEDREC ---
Pharmacy Consult ? Medication Reconciliation Pharmacy has reviewed the medication reconciliation completed by nursing.
[2023-06-25 07:22] LABS: Glucose, Whole Blood 137 mg/dL (60-115)
[2023-06-25] MEDS: Scopolamine 1.5 MG PATCH.TD.3 TRANSDERMA (07:32)
[2023-06-25] MEDS: oxyCODONE HCl ER 10 MG TAB.ER.12H PO ×2 (07:32→19:42)
[2023-06-25] MEDS: vancomycin HCL 1,000 MG in 0.9 % Sodium Chloride 250 ML 270 MG IV ×2 (07:44→19:43)
[2023-06-25] MEDS: Lactated Ringers 1,000 ML 100 ML IVCONT ×2 (07:47→13:15)
--- NOTE | 2023-06-25 09:00 | PC.NURSE ---
Addendum entered by Mignon Martin 06/25/23 09:32: OR nurse Elis made aware. Original Note: Spinal Cord Stimulator set to Surgery Mode . Patient states she was told by rep to do this before surgeries.
--- NOTE | 2023-06-25 12:29 | P.BOP_ITS ---
Brief Operative Note Date of Service: 06/25/23 Pre-op diagnosis: Right hip degenerative joint disease Post-op diagnosis: same Procedure: Right total hip arthroplasty Implants: [place] press-fit total hip arthroplasty with an Accolade II femoral stem size 3 with a 127 degree neck-shaft angle, a Trident II Tritanium acetabular component with cluster hole size 48, a Biolox ceramic femoral head size 32 with a +0 neck, polyethylene liner size 32D with a 10 degree lip, 2 cancellous bone screws both measuring 25 mm in length, 1 Amanda cable Surgeon: Archie Ramos MD Anesthesia: GETA Was an Perfect Binder Operator used for this Procedure?: Yes Perfect Binder Operator: Arnulfo Blackwell Estimated blood loss (mL): 200 Pathology: other (Right femoral head) Condition: stable Disposition: PACU
--- NOTE | 2023-06-25 12:32 | P.OP_ITS ---
Operative Note Operative Note Date of Service: 06/25/23 Narrative: After the patient was identified as Meron Soria and her right hip was initialed by myself the patient was brought to the operating room where general anesthesia via endotracheal tube was induced by the anesthesiologist in routine fashion. Because of the patient's allergy to clindamycin and cephalosporins she was given 1 g of IV vancomycin for infection prophylaxis. The patient was then gently rolled into the lateral position. An axillary roll was put into place. All bony prominences were well padded. The patient's pelvis was held securely with hip bolsters. The patient's right hip region and lower extremity were prepped and draped in sterile fashion. A #10 scalpel blade was then used to make a curvilinear incision centered over the greater trochanter. The subcutaneous tissues were dissected using electrocautery down to the fascia iván. The fascia iván was then split in line with the skin incision using electrocautery. The split in the fascia iván was curved posteriorly along its cephalad aspect to help prevent injury to the innervation of the tensor fascia iván muscle. The patient's leg was gently externally rotated. A lateral Ernst approach was then taken down to the anterior joint capsule. The anterior half of the vastus lateralis was split 1 cm from its insertion and tagged with #2 Ethibond suture. The anterior 1/3 of the gluteus medius incision was then split using electrocautery and tagged with #2 Ethibond suture. An anterior capsulectomy was then performed using electrocautery. The patient's femoral head was then dislocated anteriorly using a bone hook and gentle traction. Soft tissues were retracted around the femoral neck. The femoral neck cut was then made using a sagittal saw 1 cm proximal to the lesser trochanter. Our attention was then directed to the acetabulum. The labrum was removed using electrocautery. Soft tissue within the cotyloid notch was removed using electrocautery and a rongeur. The femoral head measured to be a size 44 mm. Thus, reaming was begun with a 44 mm reamer. Reaming was performed at 45 degrees of abduction and 20 degrees of anteversion. Reaming was increased incrementally up to a size 48 reamer. At this point we had reached the medial wall of the acetabulum. The acetabulum was irrigated with copious amounts of normal saline solution via pulse lavage. The final size 48 acetabular component was then impacted into place with 45 degrees of abduction and 20 degrees of anteversion. Two cancellous bone screws each measuring 25 mm in length were then placed into the superior position. The acetabular component was irrigated with copious amounts of normal saline solution via pulse lavage. The polyethylene liner was then impacted into place with the lip in the posterior- superior position. A small sponge was placed into the acetabular component to protect it during preparation of the proximal femur. Our attention was then directed to the proximal femur. A Dall-Miles cable was placed just distal to the lesser trochanter to help prevent periprosthetic fracture. The patient's leg was then placed into a sterile pouch along the anterior aspect of the surgical suite table. Soft tissues were retracted around the proximal femur. A box cutting osteotome was used to make a groove in the medial aspect of the greater trochanter. Broaching was begun with a size 1 broach. Broaching was increased up to a size 3 broach. The size 3 broach fit well. There was both linear and rotational stability. The broach was removed. The intramedullary canal was irrigated with copious amounts of normal saline solution via pulse lavage. The final implant was impacted into place. There was both rotational and linear stability. The Dall-Miles cable was tightened and cut in routine fashion. A trial size 32 head with a +0 mm neck was put into place. The hip was reduced. Leg lengths were clinically equal. The hip was taken through a full range of motion. There was no instability. The hip was once again dislocated and the patient's leg was placed into the sterile pouch. The trial head was removed. The wound was irrigated with copious amounts of normal saline solution via pulse lavage. The final head was impacted in the place. Leg lengths were clinically equal. Hip was taken through a full range of motion. There was no instability. The patient's leg was then placed onto a well-padded Pacheco stand. The wound was once again irrigated. The vastus lateralis and tensor fascia iván tendons were repaired with #2 Ethibond [id number] interrupted suture. The wound was once again irrigated. The fascia iván was closed with #2 Ethibond [id number] interrupted suture as well as #1 Vicryl [id number] interrupted suture. The wound was once again irrigated. The subcutaneous tissues were closed with 0 Vicryl and 2-0 Vicryl interrupted suture. The skin was closed with skin divya. Dry sterile dressing was placed over the incision. The patient was gently rolled into the supine position. The patient was awoken and extubated in the operating room. The patient was transferred to the recovery room in stable condition.
[2023-06-25] MEDS: ondansetron HCL 4 MG/2 ML VIAL IVPUSH (12:43)
[2023-06-25] MEDS: HYDROmorphone HCl 0.5 MG/0.5 ML SYRINGE 0.25 MG IVPUSH (12:48)
[2023-06-25 13:49] LABS: Glucose, Whole Blood 162 mg/dL (60-115)
[2023-06-25] MEDS: oxyCODONE HCl Immed Release 5 MG TABLET PO ×2 (13:52→15:38)
--- NOTE | 2023-06-25 14:39 | HO.PM.IMCN ---
History of Present Illness Data of Consult Service Date: 06/25/23 Requesting physician: Arnulfo Blackwell Primary Care Provider: Sivan Montgomery MD HPI Reason for consult: diabetes 72 year old female with history of hepatic cirrhosis, htn, copd, blair on cpap, type 2 diabetes, gerd, RLS, hypothyroidism admitted to orthopedic surgery for management of OA R hipe s/p R MANN with consult placed to hospitalist service for medical management. She is reporting pain in the R hip, and chronic dyspnea, no change in quality or severity. Currently on CPAP, uses at bedtime. Review of Systems Review of Systems: General: No fevers, malaise, unintentional weight loss HEENT: No blurred vision, diplopia. No sore throat, nasal congestion, rhinorrhea, sinus pain, ear pain Cardiovascular: No chest pain, palpitations, or leg edema Respiratory: No shortness of breath, wheezing, cough GI: No abdominal pain, nausea, vomiting, diarrhea, constipation, melena, hematochezia : No dysuria, hematuria, increased urinary frequency, decreased urinary output MSK: No myalgia, back pain. +R hip pain Neuro: No headaches, weakness, paresthesias Skin: No rashes or lesions PMFSH Medical History Scoliosis PONV (postoperative nausea and vomiting) Skin cancer Arthritis Cirrhosis Asthma Restless legs syndrome (RLS) GERD (gastroesophageal reflux disease) TMJ (dislocation of temporomandibular joint) Obstructive sleep apnea Diabetes Hypothyroidism Fibromyalgia Mediterranean fever IBS (irritable bowel syndrome) COPD (chronic obstructive pulmonary disease) Chronic fatigue HTN (hypertension) Family History Sister Arthritis Father Clot Other Muscular dystrophy Surgical History History of esophagogastroduodenoscopy (EGD) H/O colonoscopy Hx of hysterectomy Hx of cardiac catheterization Hx of dilation and curettage S/P insertion of spinal cord stimulator H/O abdominal surgery H/O breast surgery Hx of shoulder replacement Hx of cervical spine surgery Social History Household Members: None Housing: Apartment Are you a primary out of school hours care worker to a significant other at home: No Do you presently have visiting nurse or other home services: Yes (plumber maintenance three times a week) Alcohol intake: never Patient Tobacco Use Status: Never used Tobacco Use of substances other than those prescribed or required for medical reasons: No Have you been hit, kicked, punched, or otherwise hurt by someone within the past year? If so, by whom?: No Do you feel safe in your current relationship?: No Current Relationship Is there a partner from a previous relationship who is making you feel unsafe now?: No Are you made to feel afraid or neglected: No Are you DNR?: No Advance Directives Information Provided: No (as above noted-advised to bring copy DOS) Advance Directives on File: No Do you have thoughts of harming others: None Do you have a plan to hurt others: No Plan Recently lost weight without trying: No Eating poorly because of decreased appetite: No Nutrition Risks: No Nutritional Risk Patient : No : No Poor oral hygiene: No Current occupational status: disabled Meds Allergies Allergy/AdvReac Type Severity Reaction Status Date / Time ampicillin Allergy Intermediate swelling Verified 06/25/23 06:48 Clindamycin HCl Allergy Intermediate itching Verified 06/25/23 06:48 Penicillins Allergy Intermediate rash/itchin Verified 06/25/23 06:48 g/swelling Sulfa (Sulfonamide Allergy Intermediate redness/fev Verified 06/25/23 06:48 Antibiotics) er tetracycline Allergy Intermediate SOB Verified 06/25/23 06:48 cephalexin [Keflex] Allergy Unknown reaction Verified 06/25/23 06:48 unknown, long time ago oxaprozin [Daypro] Allergy Unknown reaction Verified 06/25/23 06:48 unknown, long time ago Active Medications: Current Medications Acetaminophen (Acetaminophen 325 Mg Tablet) 650 mg PO Q6H PRN PRN Reason: Pain, Mild (Pain Scale 1-3) Albuterol Sulfate (Albuterol Sulfate 90 Mcg 8 Gm Inhaler) 1 puff INHALE Q4H PRN PRN Reason: Shortness Of Breath Or Wheezing Aspirin (Aspirin 325 Mg Tablet) 325 mg PO BID FLAKO Celecoxib (Celecoxib 200 Mg Capsule) 200 mg PO BID FLAKO Colchicine (Colchicine 0.6 Mg Tablet) 0.3 mg PO QAM FLAKO Docusate Sodium (Docusate Sodium 100 Mg Capsule) 100 mg PO BID FLAKO Famotidine (Famotidine 20 Mg Tablet) 40 mg PO BID [facility] Fluticasone Propionate (Fluticasone Propionate Nasal 16 Gm [place]) 1 spray NOSTRIL-B DAILY [facility] Gabapentin (Gabapentin 100 Mg Capsule) 100 mg PO BEDTIME [facility] Hydromorphone HCl (Hydromorphone Hcl 0.5 Mg/0.5 Ml Syringe) 0.25 mg IVPUSH Q4H PRN; Protocol PRN Reason: Pain, Severe (Pain Scale 7-10) Lactated Ringer's (Lr) 1,000 mls @ 100 mls/hr IVCONT .Q10H [facility] Stop: 06/26/23 11:17 Last Admin: 06/25/23 13:15 Dose: 100 mls/hr Vancomycin HCl 1,000 mg/ (Sodium Chloride) 270 mls @ 270 mls/hr IV Q12H [facility] Stop: 06/26/23 03:35 Levothyroxine Sodium (Levothyroxine Sodium 125 Mcg Tablet) 125 mcg PO QAM [facility] Loperamide HCl (Loperamide Hcl 2 Mg Capsule) 2 mg PO Q4H PRN PRN Reason: Loose Stool Loratadine (Loratadine 10 Mg Tablet) 10 mg PO BEDTIME [facility] Methocarbamol (Methocarbamol 750 Mg Tablet) 750 mg PO Q8H [facility] Metoprolol Succinate (Metoprolol Succinate Er 25 Mg Tab.Er.24h) [facility] [place] Non-Formulary Medication (Epinephrine) 0.3 mg IM ONCE PRN PRN Reason: Anaphylaxis Non-Formulary Medication (Magnesium) [facility] [place] Non-Formulary Medication (Nitroglycerin) 0.3 mg SUBLINGUAL ONCE PRN PRN Reason: Acid Reflux Non-Formulary Medication (Potassium Chloride) 10 meq PO QAM [facility] Ondansetron HCl (Ondansetron Hcl 4 Mg/2 Ml Vial) 4 mg IVPUSH Q8H PRN PRN Reason: Nausea and Vomiting Oxycodone HCl (Oxycodone Hcl Immed Release 5 Mg Tablet) 5 mg PO Q3H PRN PRN Reason: Pain, Moderate(Pain Scale 4-6) Oxycodone HCl (Oxycodone Hcl Er 10 Mg Tab.Er.12h) 10 mg PO BID [facility] Oxycodone HCl (Oxycodone Hcl Immed Release 5 Mg Tablet) 10 mg PO Q4H PRN PRN Reason: Pain, Moderate(Pain Scale 4-6) Pharmacy Consult (Consult Rx Vancomycin Dosing) 1 each MISCELLANE DAILY PRN PRN Reason: Consult order Sodium Chloride (0.9 % Sodium Chloride Flush 3 Ml Syringe) 3 ml IVFLUSH QSHIFT FLAKO Sumatriptan Succinate (Sumatriptan Succinate 100 Mg Tablet) 100 mg PO DAILY PRN PRN Reason: Migraine Headache Home Medications Medication Instructions Recorded Confirmed Last Taken Type albuterol sulfate 90 mcg/actuation 1 inh inhalation Q4H PRN Shortness 12/27/21 06/25/23 06/25/23 History aerosol inhaler Of Breath Or Wheezing atorvastatin 20 mg tablet 20 mg PO BEDTIME 12/27/21 06/25/23 06/24/23 History baclofen 10 mg tablet 10 mg PO TID 12/27/21 06/25/23 06/24/23 History blood sugar diagnostic (OneTouch #10 ea 12/27/21 06/20/23 Unknown History Verio test strips) epinephrine 0.3 mg/0.3 mL 0.3 mg IM ONCE PRN Anaphylaxis 12/27/21 06/20/23 Unknown History injection, auto-injector famotidine 40 mg tablet 40 mg PO BID 12/27/21 06/25/23 06/25/23 History fluticasone propionate 50 1 spray intranasal DAILY 12/27/21 06/25/23 06/24/23 History mcg/actuation nasal spray,suspension hydrochlorothiazide 12.5 mg tablet 12.5 mg PO QAM 12/27/21 06/25/23 06/23/23 History levothyroxine 125 mcg tablet 125 mcg PO QAM 12/27/21 06/25/23 06/25/23 History metoprolol succinate 25 mg 25 mg PO QAM 12/27/21 06/25/23 06/25/23 History tablet,extended release 24 hr nitroglycerin 0.3 mg sublingual 0.3 mg sublingual ONCE PRN Acid 12/27/21 06/25/23 Unknown History tablet Reflux pen needle, diabetic 32 gauge x #50 ea 12/27/21 06/20/23 Unknown History (BD Sun 2nd Gen Pen Needle) sumatriptan succinate 100 mg tablet 100 mg PO DAILY PRN Migraine 12/27/21 06/25/23 06/18/23 History Headache cetirizine 10 mg tablet 10 mg PO BEDTIME 06/18/23 06/25/23 06/24/23 History cholecalciferol (vitamin D3) 50 50 mcg PO QAM 06/18/23 06/25/23 06/24/23 History mcg (2,000 unit) capsule (Vitamin D3) colchicine 0.6 mg tablet 0.3 mg PO QAM 06/18/23 06/25/23 06/24/23 History insulin glargine 100 unit/mL (3 24 unit subcut BEDTIME 06/18/23 06/25/23 06/24/23 19:00 History mL) subcutaneous pen (Lantus 12 units Solostar U-100 Insulin) loperamide 2 mg capsule 2 mg PO Q4H PRN Loose Stool 06/18/23 06/20/23 Unknown History magnesium 200 mg tablet 200 mg PO QAM 06/18/23 06/25/23 06/18/23 History potassium chloride 10 mEq 10 meq PO QAM 06/18/23 06/25/23 06/18/23 History tablet,extended release Physical Exam Vital Signs and Narrative: Vital Signs: Last Vital Signs Temp 98.1 F 06/25/23 14:25 Pulse 86 06/25/23 14:25 Resp 12 06/25/23 14:25 BP 137/68 06/25/23 14:25 Pulse Ox 95 06/25/23 14:25 O2 Del Method CPAP 06/25/23 14:25 O2 Flow Rate 2 06/25/23 14:25 BMI result Body Mass Index 30.0 Constitutional - Awake and Alert, No apparent distress Eyes - PERRLA, EOMI Cardiovascular - S1S2, RRR, No edema Respiratory - Normal lung expansion, Normal respiratory effort, No respiratory distress, CTA bilaterally Gastrointestinal - NT / ND; +BS; No rebound or guarding Extremities - no calf tenderness bilaterally, no swelling Skin - Warm/Dry Neurological - Alert & oriented x3 Psychological - Appropriate affect Results Labs Labs: Laboratory Results - last 24 hr 06/25/23 06/25/23 07:19 13:45 POC Glucose 137 H 162 H Assessment and Plan (1) Arthritis of right hip: Status: Acute Plan 72 year old female with history of hepatic cirrhosis, htn, copd, blair on cpap, type 2 diabetes, gerd, RLS, hypothyroidism admitted to orthopedic surgery for management of OA R hip s/p R MANN with consult placed to hospitalist service for medical management. #OA R hip -s/p R MANN POD 0 -plan per ortho surgery -wean cpap as tolerated #Insulin dependent type 2 diabetes without hyperglycemia -poc glucose, diabetic diet -dose adjusted basal insulin, humalog on ss #HTN -bp reasonably controlled -continue hctz, metoprolol #BLAIR -cpap bedtime #COPD -no acute exacerbation -albuterol prn #Hypothyroidism -continue levothyroxine Thank you for allowing me to participate in this consult. Signing off at this time. Please do not hesitate to call for further questions.
[2023-06-25] MEDS: methocarbamoL 750 MG TABLET PO ×2 (15:17→21:15)
[2023-06-25] MEDS: Magnesium Oxide 400 MG TABLET 200 MG PO (15:17)
[2023-06-25] MEDS: Potassium Chloride ER 10 MEQ TABLET.ER PO (15:37)
[2023-06-25] MEDS: Insulin Lispro 100 UNIT/ML 3 ML VIAL SUBCUT ×2 (17:18→20:29)
[2023-06-25] MEDS: oxyCODONE HCl Immed Release 5 MG TABLET 10 MG PO ×2 (17:18→21:15)
[2023-06-25] MEDS: Loratadine 10 MG TABLET PO (19:42)
[2023-06-25] MEDS: Aspirin 325 MG TABLET PO (19:42)
[2023-06-25] MEDS: Gabapentin 100 MG CAPSULE PO (19:42)
[2023-06-25] MEDS: Docusate Sodium 100 MG CAPSULE PO (19:42)
[2023-06-25] MEDS: Famotidine 20 MG TABLET 40 MG PO (19:42)
[2023-06-25] MEDS: Celecoxib 200 MG CAPSULE PO (19:42)
[2023-06-25] MEDS: Insulin Glargine,Hum.rec.anlog 100 UNIT/ML 10 ML VIAL 18 UNIT SUBCUT (20:29)
[2023-06-25] MEDS: Acetaminophen 325 MG TABLET 650 MG PO (21:15)
[2023-06-26 00:21] VITALS: BP 110/56; PULSE 90; RESP 16; TEMP 36.2; O2SAT 97
[2023-06-26] MEDS: Lactated Ringers 1,000 ML 100 ML IVCONT ×2 (00:22→10:47)
[2023-06-26 03:55] VITALS: BP 134/60; PULSE 95; RESP 16; TEMP 36.1; O2SAT 96
[2023-06-26] MEDS: HYDROmorphone HCl 0.5 MG/0.5 ML SYRINGE 0.25 MG IVPUSH (05:03)
[2023-06-26] MEDS: Levothyroxine Sodium 125 MCG TABLET PO (05:43)
[2023-06-26] MEDS: methocarbamoL 750 MG TABLET PO ×3 (05:43→21:20)
[2023-06-26 06:51] VITALS: BP 115/56; PULSE 85; RESP 17; TEMP 36.1; O2SAT 93
[2023-06-26 06:57] LABS: MANUAL DIFF FLAG NO
[2023-06-26 07:07] LABS: Basophils Percent Auto 0.2 % (0-2); Eosinophils Percent Auto 0.1 % (0-4); Hematocrit 33.7 % (37.0-47.0); Hemoglobin 11.2 g/dl (12.0-16.0); Imm Gran Abs Auto 0.04 X10*3/uL (0.00-0.03); Imm Gran Pct Auto 0.4 % (0.0-0.4); Lymphocytes Absolute Auto 1.9 X10*3/uL (1.2-4.9); Lymphocytes Percent Auto 18.7 % (20-40); Mean Corpuscular HGB Conc 33.2 g/dl (31.0-35.0); Mean Corpuscular Hemoglobin 31.1 pg (27.0-33.0); Mean Corpuscular Volume 93.6 fL (80.0-98.0); Mean Platelet Volume 12.8 fL (9.4-12.3); Monocytes Absolute Auto 0.8 X10*3/uL (0.1-1.2); Monocytes Percent Auto 7.8 % (2-11); Neutrophils Absolute Auto 7.4 x10*3/uL (2.0-8.3); Neutrophils Percent Auto 72.8 % (45-73); Platelet Count 155 X10*3/uL (160-400); Red Cell Distribution Width 14.3 % (11.0-16.0); White Blood Count 10.2 X10*3/uL (4.8-10.8)
[2023-06-26 07:10] LABS: Glucose, Whole Blood 117 mg/dL (60-115)
[2023-06-26 07:22] LABS: Anion Gap 12 (12-20); Blood Urea Nitrogen 12 mg/dL (9-16); Calcium 8.7 mg/dL (8.4-10.2); Carbon Dioxide 25 mmol/L (22-29); Chloride 108 mmol/L (96-108); Creatinine Clr Calc Pharmacy 61.7; Estimated Glomerular Filt Rate > 60; Glucose Fasting 115 mg/dL (60-99); Potassium 3.8 mmol/L (3.3-5.1); Sodium 141 mmol/L (135-145)
--- NOTE | 2023-06-26 07:37 | P.PNOP_ITS ---
Subjective Subjective Date of Service: 06/26/23 Interval history: POD 1 s/p RT MANN no overnight events resting in bed eating breakfast c/o moderate pain denies cp,sob,palpitations Physical Exam Vital Signs: Vital Signs: Last Vital Signs Temp 97 F 06/26/23 06:51 Pulse 85 06/26/23 06:51 Resp 17 06/26/23 06:51 BP 115/56 L 06/26/23 06:51 Pulse Ox 93 06/26/23 06:51 O2 Del Method Room Air 06/26/23 06:51 O2 Flow Rate 2 06/26/23 00:21 BMI result Body Mass Index 30.0 Const: General: cooperative, healthy appearing and no acute distress Resp: Effort & Inspection: normal respiratory effort and able to speak in complete sentences Cardio: Rate: regular rate Peripheral pulses: Peripheral pulses 2+ throughout GI: Palpation (GI): Soft to palpation Skin: General skin exam: no rashes or lesions noted Extrem: Other: incision clean dry and intact. [place] intact. No erythema or effusion. Calf supple nontender. Neurovascularly intact. Procedures Date of Service Date of Service: 06/26/23 Progress Note: A&P Assessment and plan (1) History of total right hip replacement: Status: Acute Assessment and Plan: * Continue pain mgmnt * Begin Aspirin for dvt ppx * begin PT /OT for RT MANN * Dispo planning-Pending PT eval, pain mgmnt Need for continued inpatient stay: pain control and PT eval Time Spent With Patient Time: Total time managing care of this patient today ____ minutes. Quality Stroke Does the patient have a stroke diagnosis?: No VTE Prior VTE?: No VTE Risk Level:: Surgical - very high VTE Device Contraindication: N/A - Device Ordered VTE Drug Contraindication: N/A - Med Ordered
[2023-06-26] MEDS: oxyCODONE HCl Immed Release 5 MG TABLET 10 MG PO ×2 (07:42→15:05)
[2023-06-26] MEDS: vancomycin HCL 1,000 MG in 0.9 % Sodium Chloride 250 ML 270 MG IV (07:58)
[2023-06-26] MEDS: Docusate Sodium 100 MG CAPSULE PO ×2 (08:39→21:21)
[2023-06-26] MEDS: Metoprolol Succinate ER 25 MG TAB.ER.24H PO (08:39)
[2023-06-26] MEDS: oxyCODONE HCl ER 10 MG TAB.ER.12H PO ×2 (08:39→21:20)
[2023-06-26] MEDS: Celecoxib 200 MG CAPSULE PO ×2 (08:39→21:20)
[2023-06-26] MEDS: Famotidine 20 MG TABLET 40 MG PO ×2 (08:39→21:20)
[2023-06-26] MEDS: Potassium Chloride ER 10 MEQ TABLET.ER PO (08:39)
[2023-06-26] MEDS: Magnesium Oxide 400 MG TABLET 200 MG PO (08:40)
[2023-06-26] MEDS: Aspirin 325 MG TABLET PO ×2 (08:40→21:21)
[2023-06-26] MEDS: Colchicine 0.6 MG TABLET 0.3 MG PO (08:40)
[2023-06-26 11:13] LABS: Glucose, Whole Blood 134 mg/dL (60-115)
[2023-06-26] MEDS: Fluticasone Propionate Nasal 16 GM SPRAY 1 SPRAY NOSTRIL-B (11:28)
--- NOTE | 2023-06-26 11:57 | MHC.CM.PN ---
CM MET WITH PT AT BEDSIDE. PT LIVES ALONE. USES CANE FOR MOBILITY. USES [facility] AT [facility]. VENDOR IS [employer] NO HCP, WILL THINK ABOUT COMPLETING ONE. PCP DR. ISABEL DESAI. DP: HOME WITH NEW [facility]. REFERRALS SENT. PT WILL HAVE HER OWN RIDE HOME. CM WILL CONTINUE TO FOLLOW FOR ANY CHANGE IN DCNEEDS/PLAN.
--- NOTE | 2023-06-26 14:26 | HO.POSTANES ---
Post Anesthesia Evaluation Post Anesthesia Evaluation Date of Service: 06/26/23 Vital Signs: Vital Signs Temp Pulse Resp BP Pulse Ox O2 Del Method 06/26/23 06:51 97 F 85 17 115/56 L 93 Room Air 06/26/23 03:55 97.0 F 95 16 134/60 96 Room Air Anesthesia: General Mental Status: Awake Pain Control: Satisfactory (pain difficult to control) Nausea/Vomiting: None Hydration: Adequate Anesthesia-Related Issues: No Anes. Related Issues
[2023-06-26 15:55] VITALS: BP 115/56; PULSE 94; RESP 18; TEMP 36.2; O2SAT 93
[2023-06-26 16:15] LABS: Glucose, Whole Blood 115 mg/dL (60-115)
[2023-06-26 19:31] VITALS: BP 129/59; PULSE 104; RESP 18; TEMP 36.8; O2SAT 97
[2023-06-26 20:34] LABS: Glucose, Whole Blood 127 mg/dL (60-115)
[2023-06-26] MEDS: Gabapentin 100 MG CAPSULE PO (21:20)
[2023-06-26] MEDS: Loratadine 10 MG TABLET PO (21:21)
[2023-06-26] MEDS: Insulin Glargine,Hum.rec.anlog 100 UNIT/ML 10 ML VIAL 18 UNIT SUBCUT (21:22)
[2023-06-27 04:00] VITALS: BP 142/62; PULSE 90; RESP 16; TEMP 36.3; O2SAT 95
[2023-06-27] MEDS: oxyCODONE HCl Immed Release 5 MG TABLET 10 MG PO ×2 (04:11→08:37)
[2023-06-27] MEDS: Levothyroxine Sodium 125 MCG TABLET PO (06:12)
[2023-06-27] MEDS: HYDROmorphone HCl 0.5 MG/0.5 ML SYRINGE 0.25 MG IVPUSH (06:12)
[2023-06-27] MEDS: methocarbamoL 750 MG TABLET PO (06:12)
[2023-06-27 06:48] VITALS: BP 136/66; PULSE 95; RESP 17; TEMP 36.1; O2SAT 94
[2023-06-27 07:07] LABS: Glucose, Whole Blood 103 mg/dL (60-115)
[2023-06-27 07:08] LABS: Anion Gap 12 (12-20); Blood Urea Nitrogen 10 mg/dL (9-16); Carbon Dioxide 25 mmol/L (22-29); Chloride 106 mmol/L (96-108); Creatinine Clr Calc Pharmacy 64.1; Estimated Glomerular Filt Rate > 60; Glucose Fasting 114 mg/dL (60-99); Potassium 3.8 mmol/L (3.3-5.1); Sodium 139 mmol/L (135-145)
[2023-06-27 07:09] LABS: Basophils Percent Auto 0.4 % (0-2); Eosinophils Percent Auto 0.3 % (0-4); Hematocrit 33.6 % (37.0-47.0); Hemoglobin 11.2 g/dl (12.0-16.0); Imm Gran Abs Auto 0.07 X10*3/uL (0.00-0.03); Imm Gran Pct Auto 0.7 % (0.0-0.4); Lymphocytes Absolute Auto 1.7 X10*3/uL (1.2-4.9); Lymphocytes Percent Auto 16.6 % (20-40); MANUAL DIFF FLAG SCAN; Mean Corpuscular HGB Conc 33.3 g/dl (31.0-35.0); Mean Corpuscular Hemoglobin 31.5 pg (27.0-33.0); Mean Corpuscular Volume 94.4 fL (80.0-98.0); Mean Platelet Volume 12.7 fL (9.4-12.3); Monocytes Absolute Auto 0.9 X10*3/uL (0.1-1.2); Monocytes Percent Auto 8.7 % (2-11); Neutrophils Absolute Auto 7.3 x10*3/uL (2.0-8.3); Neutrophils Percent Auto 73.3 % (45-73); PLT CLUMP 1; Red Blood Count 3.56 X10*6/uL (4.20-5.50); Red Cell Distribution Width 14.6 % (11.0-16.0); SCAN SMEAR FLAG 1
[2023-06-27 07:12] LABS: Platelet Count 141 X10*3/uL (160-400)
--- NOTE | 2023-06-27 08:00 | P.DS_ITS ---
DS: Providers Provider Date of Service: 06/27/23 Date of admission: 06/25/23 06:33 Primary care physician: Sivan Montgomery MD Consults: 06/25/23 14:36 Consult to Hospitalist Routine Comment: Consulting Provider: Hospitalist Reason For Exam: diabetes DS: Diagnosis Discharge Diagnosis (1) History of total right hip replacement: Status: Acute DS: Summary Hospital Course Hospital Course: The patient underwent a successful Right total hip arthroplasty on 06/25/[address] Ramos, was transferred to PACU and then to the floor to recover. During their stay, their vitals were stable, afebrile at 97.0 . Labs were unremarkable, H/H 11.2/33.6. POD 1 she was started on ASA a day for DVT ppx, they also received Physical Therapy services twice a day. Physical therapy should include gait training, core and lumbar strength, glute strength. Posterior precautions intact. WBAT. Prior to discharge,Aquacel intact. The Aquacel dressing should remain intact and dry at all times. Any concerns with the dressing, please contact orthopedic office. No showering. The plan is to be discharged home with VNA Time Attestation Discharge Coordination Time (in mins): 30 Quality: Safe Use of Opioids Does Pt have an Active Cancer Diagnosis on the Problem List?: No Quality: Stroke Does the patient have a stroke diagnosis?: No Physical Exam Vital Signs: Vital Signs: Last Vital Signs Temp 97 F 06/27/23 06:48 Pulse 95 06/27/23 06:48 Resp 17 06/27/23 06:48 BP 136/66 06/27/23 06:48 Pulse Ox 94 06/27/23 06:48 O2 Del Method Room Air 06/27/23 06:48 O2 Flow Rate 2 06/27/23 04:00 BMI result Body Mass Index 30.0 DS: Data Data Completed and Pending Pending studies at discharge: Pending at discharge 06/25/23 10:22 Surgical [PTH] Routine Labs on day of discharge: Laboratory Results - last 24 hr 06/26/23 06/26/23 06/26/23 11:08 16:06 20:30 WBC RBC Hgb Hct MCV MCH MCHC RDW Sodium Potassium Chloride Carbon Dioxide Anion Gap BUN Creatinine Estim Creat Clear Calc Estimated GFR POC Glucose 134 H 115 127 H Fasting Glucose Calcium 06/27/23 06/27/23 06:00 07:02 WBC 10.0 RBC 3.56 L Hgb 11.2 L Hct 33.6 L MCV 94.4 MCH 31.5 MCHC 33.3 RDW 14.6 Sodium 139 Potassium 3.8 Chloride 106 Carbon Dioxide 25 Anion Gap 12 BUN 10 Creatinine 0.76 Estim Creat Clear Calc 64.1 Estimated GFR > 60 POC Glucose 103 Fasting Glucose 114 H Calcium 9.0 Discharge Plan Discharge Anticipated Discharge Date/Time: 06/27/23 07:52 Patient Disposition: Home Health Service Discharge Diagnosis: s/p RT MANN Referrals: Yue Loja PA-C [Physician Pigment Mixer] - 2 Weeks (07/12/23 13:15 [facility] Orthopedic Surgeons Yue Loja PA-C) Discharge Medications: New docusate sodium 100 mg Capsule 100 mg PO BID 14 Days Qty: 28 0RF celecoxib 200 mg Capsule 200 mg PO BID 30 Days Qty: 60 0RF aspirin 325 mg Tablet 325 mg PO BID 42 Days Qty: 84 0RF gabapentin 100 mg Capsule 100 mg PO BEDTIME 7 Days Qty: 7 0RF oxycodone 5 mg Tablet 10 mg PO Q4H PRN (Reason: Pain, Moderate(Pain Scale 4-6)) 7 Days Qty: 84 0RF Rx Instructions: Partial Fill upon patient request. acetaminophen 325 mg Tablet 650 mg PO Q6H PRN (Reason: Pain, Mild (Pain Scale 1-3)) 30 Days Qty: 240 0RF Continued cetirizine 10 mg Tablet 10 mg PO BEDTIME colchicine 0.6 mg tablet 0.3 mg PO QAM magnesium 200 mg Tablet 200 mg PO QAM cholecalciferol (vitamin D3) [Vitamin D3] 50 mcg (2,000 unit) Capsule 50 mcg PO QAM insulin glargine [Lantus Solostar U-100 Insulin] 100 unit/mL (3 mL) insulin pen 24 unit subcut BEDTIME potassium chloride 10 mEq Tablet Extended Release 10 meq PO QAM loperamide 2 mg Capsule 2 mg PO Q4H PRN (Reason: Loose Stool) Rx Instructions: administer after each loose stool until symptoms controlled; do not exceed 8 mg per 24 hrs nitroglycerin 0.3 mg tablet, sublingual 0.3 mg sublingual ONCE PRN (Reason: Acid Reflux) fluticasone propionate 50 mcg/actuation spray,suspension 1 spray intranasal DAILY (DME) OneTouch Verio test strips Strip See Rx Instructions .ROUTE TID Qty: 10 Rx Instructions: As directed albuterol sulfate 90 mcg/actuation HFA aerosol inhaler 1 inh inhalation Q4H PRN (Reason: Shortness Of Breath Or Wheezing) (DME) pen needle, diabetic [BD Sun 2nd Gen Pen Needle] 32 gauge x 5/32 needle See Rx Instructions .ROUTE .MEDSUPPLY Qty: 50 Rx Instructions: As directed famotidine 40 mg tablet 40 mg PO BID epinephrine 0.3 mg/0.3 mL auto-injector 0.3 mg IM ONCE PRN (Reason: Anaphylaxis) baclofen 10 mg tablet 10 mg PO TID Rx Instructions: 10 mg AM, 5 mg afternoon, 10 mg PM per patient levothyroxine 125 mcg tablet 125 mcg PO QAM sumatriptan succinate 100 mg tablet 100 mg PO DAILY PRN (Reason: Migraine Headache) hydrochlorothiazide 12.5 mg tablet 12.5 mg PO QAM metoprolol succinate 25 mg tablet extended release 24 hr 25 mg PO QAM atorvastatin 20 mg tablet 20 mg PO BEDTIME Discharge Orders: Discharge Order (Routine); Ordered 06/27/23 Ordered By: Arnulfo Blackwell Diet: Regular diet Activity on Discharge: Use cane or walker Stand Alone Forms: Patient Portal Discharge page Care Plan Goals: Restore function of joint Health Concerns: none Plan of Treatment: Physical Therapy Pain management DVT prophylaxis Assessment: * Physical Therapy for Total hip arthroplasty: wbat, gait training, ROM, strength * Limit stair climbing * No showering, no tub bath-keep dressing clean, dry and intact * No driving x6 weeks * Continue Aspirin twice a day x 6 weeks * Follow up with [facility] Orthopedics in 2 weeks: 07/11/2412:[facility] Orthopedic SurgeonsYue Loja PA-C
--- NOTE | 2023-06-27 08:02 | W.MHC.F2F ---
Service Date Service Date: 06/27/23 Encounter Date of encounter: 06/27/23 Reasons for Services Signs and symptoms assessed: Weakness, poor balance, poor gait mechanics Reason for physical therapy: home safety and mobility, therapeutic exercises, restore joint function, gait/transfer training, ADL training and energy conservation Reason for occupational therapy: home safety and mobility, therapeutic exercises, restore joint function, gait/transfer training, ADL training and energy conservation Homebound: Leaving the home is medically contraindicated at this time without the asist of a device and/or another person due th the listed conditions above and below. Reason homebound: unsteady gait / fall risk, pain with ambulation, poor balance / fall risk and unable to drive Homebound supporting statement: Pt. is considered home bound due to recent surgery. Unable to drive, poor balance, poor gait mechanics. Certification: Based on the above findings, I certify that this patient is confined to the home and needs intermittent longterm care, physical therapy and/or speech therapy, or continues to need occupational therapy. The patient is under my care, and I have initiated the establishment of the plan of care. The patient will be followed by a physician who will periodically review the plan of care. Time Spent With Patient Time: Total time managing care of this patient today ____ minutes.
[2023-06-27] MEDS: Famotidine 20 MG TABLET 40 MG PO (08:26)
[2023-06-27] MEDS: Aspirin 325 MG TABLET PO (08:26)
[2023-06-27] MEDS: Potassium Chloride ER 10 MEQ TABLET.ER PO (08:26)
[2023-06-27] MEDS: Celecoxib 200 MG CAPSULE PO (08:27)
[2023-06-27] MEDS: Metoprolol Succinate ER 25 MG TAB.ER.24H PO (08:27)
[2023-06-27] MEDS: oxyCODONE HCl ER 10 MG TAB.ER.12H PO (08:27)
[2023-06-27] MEDS: Docusate Sodium 100 MG CAPSULE PO (08:27)
[2023-06-27] MEDS: Colchicine 0.6 MG TABLET 0.3 MG PO (08:29)
[2023-06-27] MEDS: Magnesium Oxide 400 MG TABLET 200 MG PO (08:29)
[2023-06-27 08:30] LABS: SLIDE REVIEW VERIFIED
[2023-06-27] MEDS: Fluticasone Propionate Nasal 16 GM SPRAY 1 SPRAY NOSTRIL-B (08:31)
[2023-06-27] MEDS: 0.9 % Sodium Chloride Flush 3 ML SYRINGE IVFLUSH (08:38)
--- NOTE | 2023-06-27 08:51 | MHC.CM.PN ---
Patient is medically cleared for dc home w/ [facility] for PT/OT. Will transport home via her [facility] service, she will coordinate this.
== END 2023-06-27 11:41 | disposition home health service (06) | DRG 470 ==
LOC: HO.SSSA 06:42 → HO.S3 13:01
PROVIDERS: Nurse Practitioner; Physician Assistant; Admitting Provider Orthopaedic Surgery; PCP Family Medicine; Visit Provider Orthopaedic Surgery
PROC: 0SR904A Replacement of Right Hip Joint with Ceramic on Polyethylene Synthetic Substitute, Uncemented, Open Approach (ICD-10-PCS; CPT 27130; principal; 2023-06-25 08:40)
DX: M16.11 Unilateral primary osteoarthritis, right hip (principal); K74.60 Unspecified cirrhosis of liver; I10 Essential (primary) hypertension; E11.9 Type 2 diabetes mellitus without complications; E03.9 Hypothyroidism, unspecified; K21.9 Gastro-esophageal reflux disease without esophagitis; J44.9 Chronic obstructive pulmonary disease, unspecified; G47.33 Obstructive sleep apnea (adult) (pediatric); Z79.51 Long term (current) use of inhaled steroids; Z79.4 Long term (current) use of insulin; Z79.890 Hormone replacement therapy; Z79.899 Other long term (current) drug therapy
CPT/HCPCS: 36415; 72170; 80048; 80076; 82947; 85025; 85610; 86850; 86900; 86901; 87640; 87641; 88304; 88311; 97116; 97162; 97166; 97530; 97535; C1713; C1776; J0131; J1100; J1170; J1885; J1920; J2405; J2704; J3010; J3370; J7120

== ENCOUNTER → 2023-06-25 06:33 | Outpatient (BNV) | payer OTHER, SELFPAY | PROVIDERS: Admitting Provider Orthopaedic Surgery; PCP Family Medicine; Visit Provider Orthopaedic Surgery | DX: Z47.1 Aftercare following joint replacement surgery (principal); Z96.641 Presence of right artificial hip joint | CPT/HCPCS: 27130; 99024 ==

== ENCOUNTER → 2023-06-25 06:33 | Outpatient (BNV) | payer OTHER, SELFPAY | PROVIDERS: Admitting Provider Orthopaedic Surgery; PCP Family Medicine; Visit Provider Physician Assistant | DX: M16.11 Unilateral primary osteoarthritis, right hip (principal); E11.65 Type 2 diabetes mellitus with hyperglycemia; I10 Essential (primary) hypertension | CPT/HCPCS: 99222 ==

== ENCOUNTER 2023-07-04 12:32 | Outpatient (AMB) | payer OTHER, SELFPAY ==
--- NOTE | 2023-07-04 12:38 | A.OFFVIS_ITS ---
Intake Intake Visit Reasons: PO- RT MANN bandage change, 06/25/23 Intake Note: Meron a 73 year old female presentss today for a post operative wound check/bandage change s/p right MANN on 06/25/23. Patient reports VNA and nursing facility are concerned of bandage leaking. States she discontinued taking aspirin due to acid reflux, she is requesting alternative. Allergies ampicillin Allergy (Intermediate, Verified 07/04/23 12:42) swelling Clindamycin HCl Allergy (Intermediate, Verified 07/04/23 12:42) itching Penicillins Allergy (Intermediate, Verified 07/04/23 12:42) rash/itching/swelling Sulfa (Sulfonamide Antibiotics) Allergy (Intermediate, Verified 07/04/23 12:42) redness/fever tetracycline Allergy (Intermediate, Verified 07/04/23 12:42) SOB cephalexin [Keflex] Allergy (Unknown, Verified 07/04/23 12:42) reaction unknown, long time ago oxaprozin [Daypro] Allergy (Unknown, Verified 07/04/23 12:42) reaction unknown, long time ago HPI PO- RT MANN bandage change, 06/25/23 HPI Details 50-year-old female who returns to the [facility] today for post-op bandage change s/p right MANN, 06/25/23. She reports VNA and nursing facility are concerned of bandage leaking. She has discontinued taking aspirin due to acid reflex. She would like to discuss other treatment options. She is doing well ov [facility] and has no other concerns today. [facility] Medical History Scoliosis PONV (postoperative nausea and vomiting) Skin cancer Arthritis Cirrhosis Asthma Restless legs syndrome (RLS) GERD (gastroesophageal reflux disease) TMJ (dislocation of temporomandibular joint) Obstructive sleep apnea Diabetes Hypothyroidism Fibromyalgia Mediterranean fever IBS (irritable bowel syndrome) COPD (chronic obstructive pulmonary disease) Chronic fatigue HTN (hypertension) Surgical History History of esophagogastroduodenoscopy (EGD) H/O colonoscopy Hx of hysterectomy Hx of cardiac catheterization Hx of dilation and curettage S/P insertion of spinal cord stimulator H/O abdominal surgery H/O breast surgery Hx of shoulder replacement Hx of cervical spine surgery Family History Sister Arthritis Father Clot Other Muscular dystrophy Social History Household Members: None Housing: Apartment Are you a primary long term care administrator to a significant other at home: No Do you presently have visiting nurse or other home services: Yes (proctologist three times a week) Alcohol intake: never Patient Tobacco Use Status: Never used Tobacco service: No Current occupational status: disabled Review of Systems Const All systems reviewed & are unremarkable except as noted in HPI and below Physical Exam Extrem Other: Right hip: Incision clean, dry and intact. No erythema or drainage. NVI. Assessment & Plan Assessment & Plan (1) History of total right hip replacement: Code(s): Z96.641 - Presence of right artificial hip joint Plan New aquacel dressing was applied in the office today. she will keep the dressing intact till her appointment next week. If concerns arise, patient will contact the office, otherwise follow-up as planned. Patient Instructions: Scribed for Arnulfo Blackwell PA-C, by Gurpreet Martini medical practice manager, on 07/04/2023 at 12:30 PM EST. I, Arnulfo Blackwell PA-C, have personally reviewed and agree with the information entered by the scribe. Coding Level of Care Code Global (83219) Diagnoses History of total right hip replacement Z96.641
== END 2023-07-04 12:54 | disposition home or self-care (01) ==
PROVIDERS: PCP Family Medicine; Visit Provider Physician Assistant
DX: Z96.641 Presence of right artificial hip joint (principal)
CPT/HCPCS: 99024

== ENCOUNTER → 2023-07-04 12:32 | Outpatient (BNVA) | payer OTHER, SELFPAY | PROVIDERS: PCP Family Medicine; Visit Provider Physician Assistant ==

== ENCOUNTER 2023-07-12 09:29 | Outpatient (REF) | payer OTHER, SELFPAY ==
--- NOTE | ~2023-07-12 | XR_ITS ---
EXAMINATION: XR PELVIS CLINICAL INFORMATION: Hip pain. COMPARISON: AP pelvis dated 02/26/2024. TECHNIQUE: AP view of the pelvis. FINDINGS: There is mild bony demineralization. There is an intact right hip total arthroplasty, with associated cerclage wire. No hardware failure or loosening is seen. There is no periprosthetic fracture. There is very mild degenerative change of the left hip, with slight subarticular sclerosis. The left femoral head is smooth. No fracture or dislocation. The right sacroiliac joint is intact. There is subarticular sclerosis and some narrowing of the upper left sacroiliac joint. The pubic symphysis is intact. A neurostimulator impulse generator is noted, projecting over the left ilium. XR/XR pelvis 1-2V IMPRESSION: 1. There is an intact right hip total arthroplasty. 2. There is very mild osteoarthritic change of the left hip. 3. There is no fracture or dislocation. 4. There is narrowing and subarticular sclerosis of the upper left sacroiliac joint.
== END 2023-07-12 09:30 | disposition home or self-care (01) ==
LOC: HO.HOSX 09:29
PROVIDERS: Visit Provider Physician Assistant
DX: Z96.641 Presence of right artificial hip joint (principal)
CPT/HCPCS: 72170

== ENCOUNTER 2023-07-12 13:06 | Outpatient (AMB) | payer OTHER, SELFPAY ==
--- NOTE | 2023-07-12 13:13 | A.OFFVIS_ITS ---
Intake Intake Visit Reasons: PO-RT MANN 06/25/23 DR Johnson Note: Meron a 73 year old female presents today for a post operative wound check/bandage change s/p right MANN on 06/25/23. Patient reports she is doing better. She states the P.T. is going well, however she tends to be a bit sore. Allergies ampicillin Allergy (Intermediate, Verified 07/12/23 13:14) swelling Clindamycin HCl Allergy (Intermediate, Verified 07/12/23 13:14) itching Penicillins Allergy (Intermediate, Verified 07/12/23 13:14) rash/itching/swelling Sulfa (Sulfonamide Antibiotics) Allergy (Intermediate, Verified 07/12/23 13:14) redness/fever tetracycline Allergy (Intermediate, Verified 07/12/23 13:14) SOB cephalexin [Keflex] Allergy (Unknown, Verified 07/12/23 13:14) reaction unknown, long time ago oxaprozin [Daypro] Allergy (Unknown, Verified 07/12/23 13:14) reaction unknown, long time ago HPI PO-RT MANN 06/25/23 DR BARBOUR Details 73-year-old female who presents in the o ffice today 16 days status post right total hip arthroplasty, which was performed on 06/25/[address] Ramos. Patient reports she is doing better. She confirms participation with physical therapy and states it is going well. She reports a bit of soreness after PT. Patient reports she was unable to take the Oxycodone due to how it made her feel. She is requesting a refill of her Hydrocodone-acetaminophen 5-325 mg PO Q6H PRN. PFSH Medical History Scoliosis PONV (postoperative nausea and vomiting) Skin cancer Arthritis Cirrhosis Asthma Restless legs syndrome (RLS) GERD (gastroesophageal reflux disease) TMJ (dislocation of temporomandibular joint) Obstructive sleep apnea Diabetes Hypothyroidism Fibromyalgia Mediterranean fever IBS (irritable bowel syndrome) COPD (chronic obstructive pulmonary disease) Chronic fatigue HTN (hypertension) Surgical History History of esophagogastroduodenoscopy (EGD) H/O colonoscopy Hx of hysterectomy Hx of cardiac catheterization Hx of dilation and curettage S/P insertion of spinal cord stimulator H/O abdominal surgery H/O breast surgery Hx of shoulder replacement Hx of cervical spine surgery Family History Sister Arthritis Father Clot Other Muscular dystrophy Social History Household Members: None Housing: Apartment Are you a primary critical care nurse to a significant other at home: No Do you presently have visiting nurse or other home services: Yes (grinder set up operator surface three times a week) Alcohol intake: never Patient Tobacco Use Status: Never used Tobacco service: No Current occupational status: disabled Review of Systems Const All systems reviewed & are unremarkable except as noted in HPI and below Physical Exam Const General: cooperative, healthy appearing and no acute distress Resp Effort & Inspection: normal respiratory effort and able to speak in complete sentences Cardio Rate: regular rate Peripheral pulses: Peripheral pulses 2+ throughout GI Palpation (GI): Soft to palpation Skin Lesions: no lesions Rashes: no rashes Extrem Other: Right hip: Incision site is clean, dry, and intact. [place] intact. No surrounding erythema or drainage. No signs of infection. Ambulating well. NVI. Assessment & Plan Assessment & Plan (1) History of total right hip replacement: Onset Date: ~06/25/23 Comment: Dr. Ramos Code(s): Z96.641 - Presence of right artificial hip joint Plan Ms. Soria is a 73-year-old female who presents in the office today 16 days status post right total hip arthroplasty, which was performed on 06/25/[address] Ramos. Patient reports she is doing better. She confirms participation with physical therapy and states it is going well. She reports a bit of soreness after PT. Patient reports she was unable to take the Oxycodone due to how it made her feel. She is requesting a refill of her Hydrocodone-acetaminophen 5-325 mg PO Q6H PRN. Patient is ambulating with the use of a walker. She has been having PT visit her home and will now be transitioned to out patient PT. A new order was placed today. Follow up will be in [address] Ramos, or sooner if needed. A refill for Hydrocodone-acetaminophen 5-325 mg PO Q6H PRN for pain with 28 tabs for 7 days was sent to the pharmacy today. She was educated that the refill will not be eligible for diamond picker until tomorrow, 07/12/2023. Patient demonstrates understanding. X-rays of the right hip which were obtained while in the office today and were reviewed by me, Yue Loja PA-C, revealed intact orthopedic hardware with appropriate alignment of prosthesis. Orders: Orders PT Evaluation and Treatment Today Z96.641 - Presence of right artificial hip joint XR pelvis 1-2V Today M25.559 - Pain in unspecified hip Medications: Refilled hydrocodone-acetaminophen 5-325 mg Partial Fill upon patient request. 1 tab PO Q6H PRN 28 tabs 0RF pain 7 days Patient Instructions: Scribed by Adelina Gonzalez diploma medical assistant, for Yue Loja PA-C on 07/12/2023 at 1:10 pm, EST. Coding Level of Care Code Global (06029) Diagnoses History of total right hip replacement Z96.641
== END 2023-07-12 13:36 | disposition home or self-care (01) ==
PROVIDERS: PCP Family Medicine; Visit Provider Physician Assistant
DX: Z96.641 Presence of right artificial hip joint (principal)
CPT/HCPCS: 99024

== ENCOUNTER 2023-07-25 13:00 | Outpatient (AMB) | payer OTHER, SELFPAY ==
--- NOTE | 2023-07-25 13:08 | MHC.OFFVIS ---
Intake Intake Visit Reasons: PO-RT MANN 06/25/23 Intake Note: Meron a 73 year old female who presents today for a post operative right MANN on 06/25/23 Patient reports improvement in swelling, however she was seen by VNA yesterday who expressed concerns of redness and dryness around the incision. Allergies ampicillin Allergy (Intermediate, Verified 07/25/23 13:19) swelling Clindamycin HCl Allergy (Intermediate, Verified 07/25/23 13:19) itching Penicillins Allergy (Intermediate, Verified 07/25/23 13:19) rash/itching/swelling Sulfa (Sulfonamide Antibiotics) Allergy (Intermediate, Verified 07/25/23 13:19) redness/fever tetracycline Allergy (Intermediate, Verified 07/25/23 13:19) SOB cephalexin [Keflex] Allergy (Unknown, Verified 07/25/23 13:19) reaction unknown, long time ago oxaprozin [Daypro] Allergy (Unknown, Verified 07/25/23 13:19) reaction unknown, long time ago HPI PO-RT MANN 06/25/23 DR BARBOUR Details 73-year-old female who returns to the office today for post-op right MANN, 06/25/[address] Ramos. She states she has improvement in her swelling however she was seen by VNA yesterday who expressed concerns of redness and dryness around the incision. Patient states she does have a history of developing cellulitis. She is doing well otherwise and has no concerns today. ON LICENSE OF [facility] Medical History Scoliosis PONV (postoperative nausea and vomiting) Skin cancer Arthritis Cirrhosis Asthma Restless legs syndrome (RLS) GERD (gastroesophageal reflux disease) TMJ (dislocation of temporomandibular joint) Obstructive sleep apnea Diabetes Hypothyroidism Fibromyalgia Mediterranean fever IBS (irritable bowel syndrome) COPD (chronic obstructive pulmonary disease) Chronic fatigue HTN (hypertension) Surgical History History of esophagogastroduodenoscopy (EGD) H/O colonoscopy Hx of hysterectomy Hx of cardiac catheterization Hx of dilation and curettage S/P insertion of spinal cord stimulator H/O abdominal surgery H/O breast surgery Hx of shoulder replacement Hx of cervical spine surgery Family History Sister Arthritis Father Clot Other Muscular dystrophy Social History Household Members: None Housing: Apartment Are you a primary animal care supervisor to a significant other at home: No Do you presently have visiting nurse or other home services: Yes (tool and equipment rental clerk three times a week) Alcohol intake: never Patient Tobacco Use Status: Never used Tobacco service: No Current occupational status: disabled Review of Systems Const All systems reviewed & are unremarkable except as noted in HPI and below Physical Exam Extrem Other: Right hip: Incision well healed. There is an area of redness along the inferior incision which resemble a cellulitis. No drainage, no swelling or tenderness to the hip. She has full ROM without pain. NVI. Assessment & Plan Assessment & Plan (1) History of total right hip replacement: Onset Date: ~06/25/23 Comment: Dr. Ramos Code(s): Z96.641 - Presence of right artificial hip joint Plan Dr. Ramos was present to see the patient with me today. The plan was to put the patient on Levaquin, once a day for 10 days. She does have a routine post-op appointment on August 08 which she will keep. If symptoms persist or worsens, patient will contact the office, otherwise follow-up as planned. A prescription of Vicodin was sent to the pharmacy today. Medications: New levofloxacin 500 mg PO DAILY 10 tabs 0RF 10 days Refilled hydrocodone-acetaminophen 5-325 mg Partial Fill upon patient request. 1 tab PO Q6H PRN 28 tabs 0RF pain 7 days Patient Instructions: Scribed for Arnulfo Blackwell PA-C, by Gurpreet Martini biomedical analytical scientist, on 07/25/2023 at 1:00 PM EST. I, Arnulfo Blackwell PA-C, have personally reviewed and agree with the information entered by the scribe. Coding Level of Care Code Global (55097) Diagnoses History of total right hip replacement Z96.641
== END 2023-07-25 13:57 | disposition home or self-care (01) ==
PROVIDERS: PCP Family Medicine; Visit Provider Physician Assistant
DX: Z96.641 Presence of right artificial hip joint (principal)
CPT/HCPCS: 99024

== ENCOUNTER → 2023-07-25 13:00 | Outpatient (BNVA) | payer OTHER, SELFPAY | PROVIDERS: PCP Family Medicine; Visit Provider Physician Assistant ==

== ENCOUNTER 2023-08-09 10:47 | Outpatient (AMB) | payer OTHER, SELFPAY ==
--- NOTE | 2023-08-09 10:47 | MHC.OFFVIS ---
Vital Signs 08/09/23 10:49 Height 5 ft 2 in Weight 157 lb BMI 28.7 Intake Visit Reasons: PO- 6wk RT MANN 06/25/23 Intake Note: Mreon is a 73 year old female who presents for her post operative right MANN on 06/25/23 . Patient reports she is doing well and she is doing home physical therapy and it is going ok. The patient does take Vicodin as needed for discomfort. She continues to walk with a rolling walker. Allergies ampicillin Allergy (Intermediate, Verified 08/09/23 10:51) swelling Clindamycin HCl Allergy (Intermediate, Verified 08/09/23 10:51) itching Penicillins Allergy (Intermediate, Verified 08/09/23 10:51) rash/itching/swelling Sulfa (Sulfonamide Antibiotics) Allergy (Intermediate, Verified 08/09/23 10:51) redness/fever tetracycline Allergy (Intermediate, Verified 08/09/23 10:51) SOB cephalexin [Keflex] Allergy (Unknown, Verified 08/09/23 10:51) reaction unknown, long time ago oxaprozin [Daypro] Allergy (Unknown, Verified 08/09/23 10:51) reaction unknown, long time ago Medication List - Last Reconciled 08/09/23 by Archie Ramos MD acetaminophen 650 mg (2 x 325 mg) PO Q6H PRN 30 days albuterol sulfate 90 mcg/actuation 1 inh inhalation Q4H PRN aspirin 325 mg PO BID 42 days atorvastatin 20 mg PO BEDTIME baclofen 10 mg PO TID blood sugar diagnostic (OneTouch Verio test strips) As directed celecoxib 200 mg PO BID 30 days cetirizine 10 mg PO BEDTIME cholecalciferol (vitamin D3) (Vitamin D3) 50 mcg PO QAM colchicine 0.3 mg PO QAM docusate sodium 100 mg PO BID 14 days enoxaparin (Lovenox) 40 mg (0.4 mL) subcut Q24H 35 days epinephrine 0.3 mg IM ONCE PRN famotidine 40 mg PO BID fluticasone propionate 50 mcg/actuation 1 spray intranasal DAILY gabapentin 100 mg PO BEDTIME 7 days hydrochlorothiazide 12.5 mg PO QAM hydrocodone-acetaminophen 5-325 mg 1 tab PO Q8H PRN 10 days insulin glargine (Lantus Solostar U-100 Insulin) 24 units subcut BEDTIME levofloxacin 500 mg PO DAILY 10 days levofloxacin 500 mg PO DAILY 10 days levothyroxine 125 mcg PO QAM loperamide 2 mg PO Q4H PRN magnesium 200 mg PO QAM metoprolol succinate ER 25 mg PO QAM nitroglycerin 0.3 mg sublingual ONCE PRN oxycodone 10 mg (2 x 5 mg) PO Q4H PRN 7 days pen needle, diabetic (BD Sun 2nd Gen Pen Needle) As directed potassium chloride ER 10 mEq PO QAM sumatriptan succinate 100 mg PO DAILY PRN PFSH Medical History Arthritis of right hip Scoliosis PONV (postoperative nausea and vomiting) Skin cancer Arthritis Cirrhosis Asthma Restless legs syndrome (RLS) GERD (gastroesophageal reflux disease) TMJ (dislocation of temporomandibular joint) Obstructive sleep apnea Diabetes Hypothyroidism Fibromyalgia Mediterranean fever IBS (irritable bowel syndrome) COPD (chronic obstructive pulmonary disease) Chronic fatigue HTN (hypertension) Surgical History History of esophagogastroduodenoscopy (EGD) H/O colonoscopy Hx of hysterectomy Hx of cardiac catheterization Hx of dilation and curettage S/P insertion of spinal cord stimulator H/O abdominal surgery H/O breast surgery Hx of shoulder replacement Hx of cervical spine surgery Family History Sister Arthritis Father Clot Other Muscular dystrophy Social History Household Members: None Housing: Apartment Are you a primary daycare manager to a significant other at home: No Do you presently have visiting nurse or other home services: Yes (ui application developer three times a week) Alcohol intake: never Patient Tobacco Use Status: Never used Tobacco service: No Current occupational status: disabled Physical Exam Vital Signs: BMI result Body Mass Index 28.7 Extrem Other: Right hip examination shows that the surgical incision is well healed, there is a small amount of redness along the distal aspect of her incision measuring approximately 2 cm x 2 cm, no suture material seen, no fluctuance, no drainage, no discomfort with range of motion Assessment & Plan Assessment & Plan (1) History of total right hip replacement: Onset Date: ~06/25/23 Comment: Dr. Ramos Code(s): Z96.641 - Presence of right artificial hip joint Category: Surgical Plan Ms. Soria continues to do well after undergoing right total hip replacement surgery on 06/25/2023. She does have an area of redness along the distal aspect of her incision most likely due to a suture abscess. Thus, I will place her on Levaquin until the redness resolves. She will contact me prior to her follow-up appointment in 2-3 weeks should any questions or concerns arise. Feel free to call me at any time should questions regarding her orthopedic management arise. Medications: New levofloxacin 500 mg PO DAILY 10 tabs 0RF 10 days Changed From hydrocodone-acetaminophen 5-325 mg Partial Fill upon patient request. 1 tab PO Q6H 7 days PRN 28 tabs 0RF pain To hydrocodone-acetaminophen 5-325 mg Partial Fill upon patient request. 1 tab PO Q8H 7 days PRN 30 tabs 0RF pain From hydrocodone-acetaminophen 5-325 mg Partial Fill upon patient request. 1 tab PO Q8H 7 days PRN 30 tabs 0RF pain To hydrocodone-acetaminophen 5-325 mg Partial Fill upon patient request. 1 tab PO Q8H PRN 30 tabs 0RF pain 10 days Coding Level of Care Code Global (01750) Diagnoses History of total right hip replacement Z96.641
[2023-08-09 10:49] VITALS: BMI 28.7
== END 2023-08-09 11:07 | disposition home or self-care (01) ==
PROVIDERS: PCP Family Medicine; Visit Provider Orthopaedic Surgery
DX: Z96.641 Presence of right artificial hip joint (principal)
CPT/HCPCS: 99024

== ENCOUNTER → 2023-08-09 10:47 | Outpatient (BNVA) | payer OTHER, SELFPAY | PROVIDERS: PCP Family Medicine; Visit Provider Orthopaedic Surgery ==

== ENCOUNTER 2023-08-14 08:07 | Outpatient (REF) | payer OTHER, SELFPAY ==
--- NOTE | ~2023-08-14 | MR_ITS ---
EXAMINATION: MR CERVICAL SPINE WITHOUT AND WITH CONTRAST CLINICAL INFORMATION: White matter disease. COMPARISON: MR cervical spine 10/01/2006. TECHNIQUE: Multiplanar MR imaging of the cervical spine was performed without and with contrast. A total of 7.5 mL Gadavist was utilized for this examination. FINDINGS: There are chronic postoperative changes of an anterior cervical discectomy and fusion with plate and screw hardware extending from C4 to C6. There is slight anterolisthesis of C3 on C4, C7 on T1, and T1 on T2 related to facet degenerative changes at these levels. Vertebral heights are preserved. There are mixed degenerative endplate changes at C6-C7. There is loss of intervertebral disc height and T2 signal intensity at multiple levels related to disc degeneration. There is no canal compromise or cord compression. No abnormal intramedullary signal changes. The cervicomedullary junction is normal. Limited visualization of the posterior fossa reveals no abnormal finding. Occipital condyles and lateral C1 masses are intact. There is degenerative arthrosis of the atlantodental joint and both C1-C2 articular facets. At C2-C3 the annular contour is normal. Bilateral facet degenerative change. No canal or neuroforaminal compromise. At C3-C4 there is an asymmetrically bulging disc to the left. No canal stenosis. Uncovertebral joint spurring and facet degenerative change causes mild left neuroforaminal encroachment. At C4-C5 there is no canal or neuroforaminal compromise. At C5-C6 there is no canal or neuroforaminal compromise. At C6-C7 there is a bulging disc and buckling of the ligamenta flava causing moderate canal stenosis. Uncovertebral joint spurring and facet degenerative change causes severe bilateral neuroforaminal encroachment. At C7-T1 there is a bulging disc. Bilateral facet degenerative change. No canal stenosis. Mild bilateral neuroforaminal encroachment. Visualized soft tissues of the neck are normal. Vascular flow voids are maintained. MR/MR cervical spine wo/w con IMPRESSION: There are chronic postoperative changes of an anterior cervical discectomy and fusion with plate and screw hardware extending from C4 to C6. There is junctional spondylosis below the fusion at the level of C6-C7 where there is a bulging disc and buckling of the ligamenta flava causing moderate canal stenosis. Otherwise no canal compromise. No cord compression or abnormal intramedullary signal changes. There are varying degrees of neuroforaminal encroachment related to uncovertebral joint spurring and facet degenerative change as described above.
[2023-08-14] MEDS: gadobutroL 7.5 ML VIAL IVPUSH (09:24)
== END 2023-08-14 08:08 | disposition home or self-care (01) ==
LOC: HO.MRI 08:07
PROVIDERS: PCP Family Medicine; Visit Provider Physician Assistant
DX: R90.82 White matter disease, unspecified (principal)
CPT/HCPCS: 72156; A9585

== ENCOUNTER 2023-08-30 07:58 | Outpatient (AMB) | payer OTHER, SELFPAY ==
[2023-08-30 07:59] VITALS: BMI 28.7
--- NOTE | 2023-08-30 07:59 | A.OFFVIS_ITS ---
Vital Signs 08/30/23 07:59 Height 5 ft 2 in Weight 157 lb BMI 28.7 Intake Visit Reasons: PO- RT MANN 06/25/23 Intake Note: Meron is a 73 year old female who presents for her post operative appointment s/p right MANN on 06/25/23 . Patient reports she is doing ok her pain is worse at bed time. She is doing home exercises with no problems. She has concerns about her varicose veins. The patient states that at times she finds her varicose veins uncomfortable. She has not been seen by a vascular specialist. Allergies ampicillin Allergy (Intermediate, Verified 08/30/23 08:07) swelling Clindamycin HCl Allergy (Intermediate, Verified 08/30/23 08:07) itching Penicillins Allergy (Intermediate, Verified 08/30/23 08:07) rash/itching/swelling Sulfa (Sulfonamide Antibiotics) Allergy (Intermediate, Verified 08/30/23 08:07) redness/fever tetracycline Allergy (Intermediate, Verified 08/30/23 08:07) SOB cephalexin [Keflex] Allergy (Unknown, Verified 08/30/23 08:07) reaction unknown, long time ago oxaprozin [Daypro] Allergy (Unknown, Verified 08/30/23 08:07) reaction unknown, long time ago Medication List - Last Reconciled 08/31/23 by Archie Ramos MD acetaminophen 650 mg (2 x 325 mg) PO Q6H PRN 30 days albuterol sulfate 90 mcg/actuation 1 inh inhalation Q4H PRN aspirin 325 mg PO BID 42 days atorvastatin 20 mg PO BEDTIME azithromycin 500 mg (2 x 250 mg) PO ONCE baclofen 10 mg PO TID blood sugar diagnostic (OneTouch Verio test strips) As directed celecoxib 200 mg PO BID 30 days cetirizine 10 mg PO BEDTIME cholecalciferol (vitamin D3) (Vitamin D3) 50 mcg PO QAM colchicine 0.3 mg PO QAM docusate sodium 100 mg PO BID 14 days enoxaparin (Lovenox) 40 mg (0.4 mL) subcut Q24H 35 days epinephrine 0.3 mg IM ONCE PRN famotidine 40 mg PO BID fluticasone propionate 50 mcg/actuation 1 spray intranasal DAILY gabapentin 100 mg PO BEDTIME 7 days hydrochlorothiazide 12.5 mg PO QAM hydrocodone-acetaminophen 5-300 mg 1 tab PO Q12H PRN hydrocodone-acetaminophen 5-325 mg 1 tab PO Q8H PRN 10 days insulin glargine (Lantus Solostar U-100 Insulin) 24 units subcut BEDTIME levofloxacin 500 mg PO DAILY 10 days levofloxacin 500 mg PO DAILY 10 days levothyroxine 125 mcg PO QAM loperamide 2 mg PO Q4H PRN magnesium 200 mg PO QAM metoprolol succinate ER 25 mg PO QAM nitroglycerin 0.3 mg sublingual ONCE PRN oxycodone 10 mg (2 x 5 mg) PO Q4H PRN 7 days pen needle, diabetic (BD Sun 2nd Gen Pen Needle) As directed potassium chloride ER 10 mEq PO QAM sumatriptan succinate 100 mg PO DAILY PRN PFSH Medical History Arthritis of right hip Scoliosis PONV (postoperative nausea and vomiting) Skin cancer Arthritis Cirrhosis Asthma Restless legs syndrome (RLS) GERD (gastroesophageal reflux disease) TMJ (dislocation of temporomandibular joint) Obstructive sleep apnea Diabetes Hypothyroidism Fibromyalgia Mediterranean fever IBS (irritable bowel syndrome) COPD (chronic obstructive pulmonary disease) Chronic fatigue HTN (hypertension) Surgical History History of esophagogastroduodenoscopy (EGD) H/O colonoscopy Hx of hysterectomy Hx of cardiac catheterization Hx of dilation and curettage S/P insertion of spinal cord stimulator H/O abdominal surgery H/O breast surgery Hx of shoulder replacement Hx of cervical spine surgery Family History Sister Arthritis Father Clot Other Muscular dystrophy Social History Household Members: None Housing: Apartment Are you a primary healthcare receptionist to a significant other at home: No Do you presently have visiting nurse or other home services: Yes (engineering team supervisor three times a week) Alcohol intake: never Patient Tobacco Use Status: Never used Tobacco service: No Current occupational status: disabled Physical Exam Vital Signs: BMI result Body Mass Index 28.7 Extrem Other: Right hip examination shows that the surgical incision is well healed, no erythema, minimal discomfort with range of motion, minimal tenderness over her bursa Bilateral lower extremity examination shows multiple varicose veins which are tender to palpation, no open skin lesions Assessment & Plan Assessment & Plan (1) Right hip pain: Code(s): M25.551 - Pain in right hip Category: Medical Plan Ms. Soria continues to do well after undergoing right total hip replacement surgery on 06/25/2023. She will continue with her home exercise program. She does know to take antibiotics before any dental work. The patient does have painful varicose veins in both of her lower extremities. Thus, I will place a referral to the vascular Department here at [facility]. The patient will contact me prior to her follow-up appointment in 2 months should any questions or concerns arise. Feel free to call me at any time should questions regarding her orthopedic management arise. Orders: Referrals Vascular Surgery Referral I83.813 - Varicose veins of bilateral lower extremities with pain Medications: New azithromycin Take two tabs (500 mg) one hour before any dental work 500 mg (2 x 250 mg) PO ONCE 10 tabs 0RF hydrocodone-acetaminophen 5-300 mg Partial Fill upon patient request. 1 tab PO Q12H PRN 30 tabs 0RF pain Coding Level of Care Code Global (18232) Diagnoses Right hip pain M25.551
== END 2023-08-30 08:18 | disposition home or self-care (01) ==
PROVIDERS: PCP Family Medicine; Visit Provider Orthopaedic Surgery
DX: M25.551 Pain in right hip (principal)
CPT/HCPCS: 99024

== ENCOUNTER → 2023-08-30 07:58 | Outpatient (BNVA) | payer OTHER, SELFPAY | PROVIDERS: PCP Family Medicine; Visit Provider Orthopaedic Surgery ==

== ENCOUNTER 2023-10-11 09:10 | Outpatient (AMB) | payer OTHER, SELFPAY ==
--- NOTE | 2023-10-11 09:16 | MHC.OFFVIS ---
Intake Visit Reasons: [facility] [place] Ortho Ref/ VV of BLE with pain Intake Note: Patient presents for bilateral VV and leg pain. Right leg worse than left. Patient gets cramping in both legs. Patient had right hip surgery on 06/25/23 and has noticed varicose veins since. States both ankles swell as well. Patient is diabetic. Accompanied by: Self / Same As Patient Allergies ampicillin Allergy (Intermediate, Verified 10/11/23 09:23) swelling Clindamycin HCl Allergy (Intermediate, Verified 10/11/23 09:23) itching Penicillins Allergy (Intermediate, Verified 10/11/23 09:23) rash/itching/swelling Sulfa (Sulfonamide Antibiotics) Allergy (Intermediate, Verified 10/11/23 09:23) redness/fever tetracycline Allergy (Intermediate, Verified 10/11/23 09:23) SOB cephalexin [Keflex] Allergy (Unknown, Verified 10/11/23 09:23) reaction unknown, long time ago oxaprozin [Daypro] Allergy (Unknown, Verified 10/11/23 09:23) reaction unknown, long time ago HPI HPI [facility] [place] Ortho Ref/ VV of BLE with pain: Details: Pleasant 73-year-old female patient presents for painful varicose veins. Complaints include pain over varicosities, swelling of lower extremities, cramping, fatigue, and heaviness of the lower extremities. It has been affecting there daily activities including walking. It is noted more so in right leg. Of note in her younger years she does report history issues with her varicosities and possibly even episodes of phlebitis Patient denies any previous venous surgery or injections. Patient denies any history of DVT/ PE. She does report that she had a father with a DVT. Patient episodes of phlebitis many years prior Trial of compression includes - [id number] They now present for vascular evaluation regarding their varicose veins. [facility] Medical History Arthritis of right hip Scoliosis PONV (postoperative nausea and vomiting) Skin cancer Arthritis Cirrhosis Asthma Restless legs syndrome (RLS) GERD (gastroesophageal reflux disease) TMJ (dislocation of temporomandibular joint) Obstructive sleep apnea Diabetes Hypothyroidism Fibromyalgia Mediterranean fever IBS (irritable bowel syndrome) COPD (chronic obstructive pulmonary disease) Chronic fatigue HTN (hypertension) Surgical History History of esophagogastroduodenoscopy (EGD) H/O colonoscopy Hx of hysterectomy Hx of cardiac catheterization Hx of dilation and curettage S/P insertion of spinal cord stimulator H/O abdominal surgery H/O breast surgery Hx of shoulder replacement Hx of cervical spine surgery Family History Sister Arthritis Father Clot Other Muscular dystrophy Social History Household Members: None Housing: Apartment Are you a primary clinical care manager to a significant other at home: No Do you presently have visiting nurse or other home services: Yes (dog food dough mixer three times a week) Alcohol intake: never Patient Tobacco Use Status: Never used Tobacco service: No Current occupational status: disabled Review of Systems Const Reports as per HPI ENT Reports no additional complaints Card Denies chest pain, Denies chest pain at rest and Denies chest pain with activity Resp Denies chest congestion and Denies cough GI Reports no additional complaints Musc Details: pain over varicosities, aching of lower extremities, swelling, cramping, heaviness and tiredness, itching Denies abnormal gait Skin/Breast Reports pruritus and Denies wounds Neuro Reports no additional complaints and Denies abnormal gait Psych Denies no additional complaints Physical Exam Const General: cooperative, healthy appearing and comfortable Orientation/consciousness: oriented to person, oriented to place and oriented to time Neck Carotids: no bruits Chest Chest palpation & inspection: normal inspection of the chest and normal palpation of entire chest wall Resp Effort & Inspection: normal respiratory effort and able to speak in complete sentences Cardio Rate: regular rate Heart sounds: S1 normal heart sound present and S2 normal heart sound present Peripheral pulses: Peripheral pulses 2+ throughout GI Inspection: Yes normal to inspection Skin Other: +2 edema, large rope-like varicosities greater than 4 mm CEAP Classification C4 - skin color changes Ep - Etiology Primary As - superficial veins P - reflux General skin exam: dry skin Neuro General: oriented to person, oriented to place and oriented to time Extrem Right lower extremity: full ROM, normal capillary refill and edema Left lower extremity: full ROM, normal capillary refill and edema Psych Mental Status: mental status grossly normal Assessment & Plan Assessment & Plan (1) Varicose veins of right lower extremity with inflammation: Code(s): I83.11 - Varicose veins of right lower extremity with inflammation Category: Medical Plan: In short, the patient has evidence of venous insufficiency. I have discussed the pathophysiology with the patient. In addition I have provided informational material regarding venous disease to the patient. We have discussed conservative measures including compression, elevation, and exercise. I have also provided a handout regarding appropriate use of compression stockings and where to purchase good compression stockings as well. I have taken the liberty of ordering venous insufficiency testing with the patient. They will follow up with me after testing. The patient had an opportunity to ask questions regarding the treatment plan. All questions were answered. Imaging studies, laboratory studies and physical exam results were discussed and reviewed in detail. No major barriers to understanding were identified. The patient expressed understanding and agreement with the above treatment plan. The patient is aware they should contact our office by phone for worsening of the current condition or the appearance of new symptoms. Thank you for allowing me to participate in the vascular care of this patient. If you have any questions or concerns regarding the treatment for the above condition please do not hesitate to contact me. The office telephone contact is [phone]. This note is constructed using voice recognition software. While every effort has been made to ensure accuracy, repairer evaporator errors may have been included. Thank you for allowing me to participate in the care of your patient. Yours sincerely, Vicente Champagne MD, FACS, R.P.V.I. Orders: Orders US venous duplex LE BI 1 Week I83.11 - Varicose veins of right lower extremity with inflammation Coding Level of Care Code Est Pt Level 4 (92624) Diagnoses Varicose veins of right lower extremity with inflammation I83.11
== END 2023-10-11 10:16 | disposition home or self-care (01) ==
PROVIDERS: PCP Family Medicine; Visit Provider Surgery Vascular Surgery
DX: I83.11 Varicose veins of right lower extremity with inflammation (principal)
CPT/HCPCS: 99213

== ENCOUNTER → 2023-10-11 09:10 | Outpatient (BNVA) | payer OTHER, SELFPAY | PROVIDERS: PCP Family Medicine; Visit Provider Surgery Vascular Surgery ==

== ENCOUNTER 2023-10-23 12:51 | Outpatient (REF) | payer OTHER, SELFPAY ==
--- NOTE | ~2023-10-23 | US_ITS ---
EXAMINATION: US LOWER EXTREMITY VENOUS (REFLUX EXAM), BILATERAL CLINICAL INDICATION: Varicose veins of the right lower extremity COMPARISON: None. TECHNIQUE: Color flow triplex imaging and compression Doppler was performed to evaluate both the deep and the superficial systems bilaterally. To evaluate the superficial system, the examination was performed in the upright position. Color-flow Doppler ultrasound and compression ultrasound were utilized. In addition, maneuvers were utilized to demonstrate reflux. FINDINGS: RIGHT: 1. DEEP VENOUS ULTRASOUND OF THE RIGHT LOWER EXTREMITY: Common Femoral Vein: Compressible, normal respiratory variation and augmented flow. Popliteal Vein: Compressible, normal augmentation. Deep Venous Reflux: There is no evidence of reflux in the deep system in either the common femoral vein or the popliteal vein. There is no evidence of a Sanches's cyst. 2. SUPERFICIAL ULTRASOUND WITH DOPPLER OF RIGHT LOWER EXTREMITY: RIGHT GREAT SAPHENOUS VEIN: Saphenofemoral Junction: 5 mm. No reflux. Proximal Thigh: 4 mm. No reflux. Mid Thigh: 3 mm. No reflux. Above Knee: 2 mm. No reflux. Below Knee: 2 mm. No reflux. Mid Calf: 2 mm. No reflux. Ankle: 3 mm. No reflux. DUPLICATED GREAT SAPHENOUS VEIN: Laterally: Saphenofemoral junction: 3 mm. No reflux. Mid thigh: 1 mm. No reflux. RIGHT SMALL SAPHENOUS VEIN: Proximal: 1 mm. No reflux. Distal: 2 mm. No reflux. PERFORATORS: Mid thigh: 1 mm. No reflux Mid calf: 1 mm. No reflux. VARICOSE VEIN: Mid thigh: 3 mm. No reflux. LEFT: 1. DEEP VENOUS ULTRASOUND OF THE LEFT LOWER EXTREMITY: Common Femoral Vein: Compressible, normal respiratory variation and augmented flow. Popliteal Vein: Compressible, normal augmentation. Deep Venous Reflux: There is no evidence of reflux in the deep system in either the common femoral vein or the popliteal vein. There is no evidence of a Sanches's cyst. 2. SUPERFICIAL ULTRASOUND WITH DOPPLER OF LEFT LOWER EXTREMITY: LEFT GREAT SAPHENOUS VEIN: Saphenofemoral Junction: 6 mm. No reflux. Proximal Thigh: 5 mm. No reflux. Mid Thigh: 4 mm. No reflux. Above Knee: 4 mm. No reflux. Below Knee: 2 mm. No reflux. Mid Calf: 2 mm. No reflux. Ankle: 2 mm. No reflux. DUPLICATED GREAT SAPHENOUS VEIN: Laterally: Saphenofemoral junction: 2 mm. No reflux. Mid thigh: 1 mm. No reflux. LEFT SMALL SAPHENOUS VEIN: Proximal: 2 mm. No reflux. Distal: 1 mm. No reflux. PERFORATORS: Proximal calf: 2 mm. No reflux. US/US venous duplex LE BI IMPRESSION: 1. No evidence of superficial venous or deep venous reflux involving bilateral lower extremities. 2. No evidence of DVT. Abnormal lower extremity venous reflux times: Superficial and deep calf veins: >500 ms Femoropopliteal veins: >1000 ms Perforating veins: >350 ms Dary N, Maeve J, Jessica L, Spenser AK, Sandro SS, Sarahi Woods, Myron WH. Definition of venous reflux in lower-extremity veins.J Vasc Surg. 2003; [id number].
== END 2023-10-23 12:52 | disposition home or self-care (01) ==
LOC: HO.US 12:51
PROVIDERS: PCP Family Medicine; Visit Provider Surgery Vascular Surgery
DX: I83.11 Varicose veins of right lower extremity with inflammation (principal)
CPT/HCPCS: 93970

== ENCOUNTER 2023-10-31 09:31 | Outpatient (REF) | payer OTHER, SELFPAY | END 2023-10-31 09:32 | disposition home or self-care (01) | LOC: HO.HOSX 09:31 | PROVIDERS: Visit Provider Orthopaedic Surgery | DX: Z13.89 Encounter for screening for other disorder (principal) ==

== ENCOUNTER 2023-11-01 09:03 | Outpatient (AMB) | payer OTHER, SELFPAY ==
--- NOTE | 2023-11-01 09:17 | A.OFFVIS_ITS ---
Vital Signs 11/01/23 09:18 Height 5 ft 2 in Weight 158 lb BMI 28.9 Intake Visit Reasons: PO- RT MANN 06/25/23 DR-two month follow up Intake Note: Meron is a 73 year old female who presents for a follow up visit s/p right MANN 06/25/23 . She reports mild intermittent discomfort along the lateral aspect of her right hip. She denies any fevers or chills. She continues with her home exercise program. Patient states that she is looking for a new docket specialist to care for her fibromyalgia and other rheumatologic disorders. Allergies ampicillin Allergy (Intermediate, Verified 11/01/23 09:19) swelling Clindamycin HCl Allergy (Intermediate, Verified 11/01/23 09:19) itching Penicillins Allergy (Intermediate, Verified 11/01/23 09:19) rash/itching/swelling Sulfa (Sulfonamide Antibiotics) Allergy (Intermediate, Verified 11/01/23 09:19) redness/fever tetracycline Allergy (Intermediate, Verified 11/01/23 09:19) SOB cephalexin [Keflex] Allergy (Unknown, Verified 11/01/23 09:19) reaction unknown, long time ago oxaprozin [Daypro] Allergy (Unknown, Verified 11/01/23 09:19) reaction unknown, long time ago Medication List - Last Reconciled 11/02/23 by Archie Ramos MD acetaminophen 650 mg (2 x 325 mg) PO Q6H PRN 30 days albuterol sulfate 90 mcg/actuation 1 inh inhalation Q4H PRN atorvastatin 20 mg PO BEDTIME baclofen 10 mg PO TID blood sugar diagnostic (OneTouch Verio test strips) As directed cetirizine 10 mg PO BEDTIME cholecalciferol (vitamin D3) (Vitamin D3) 50 mcg PO QAM colchicine 0.3 mg PO QAM CPAP (CPAP Machine/Device) As directed epinephrine 0.3 mg IM ONCE PRN famotidine 40 mg PO BID fluticasone propionate 50 mcg/actuation 1 spray intranasal DAILY hydrochlorothiazide 12.5 mg PO QAM insulin glargine (Lantus Solostar U-100 Insulin) 24 units subcut BEDTIME levothyroxine 125 mcg PO QAM loperamide 2 mg PO Q4H PRN magnesium 200 mg PO QAM metoprolol succinate ER 25 mg PO QAM nitroglycerin 0.3 mg sublingual ONCE PRN Oxygen Home Use As directed pen needle, diabetic (BD Sun 2nd Gen Pen Needle) As directed potassium chloride ER 10 mEq PO QAM sumatriptan succinate 100 mg PO DAILY PRN PFSH Medical History Arthritis of right hip Scoliosis PONV (postoperative nausea and vomiting) Skin cancer Arthritis Cirrhosis Asthma Restless legs syndrome (RLS) GERD (gastroesophageal reflux disease) TMJ (dislocation of temporomandibular joint) Obstructive sleep apnea Diabetes Hypothyroidism Fibromyalgia Mediterranean fever IBS (irritable bowel syndrome) COPD (chronic obstructive pulmonary disease) Chronic fatigue HTN (hypertension) Surgical History History of esophagogastroduodenoscopy (EGD) H/O colonoscopy Hx of hysterectomy Hx of cardiac catheterization Hx of dilation and curettage S/P insertion of spinal cord stimulator H/O abdominal surgery H/O breast surgery Hx of shoulder replacement Hx of cervical spine surgery Family History Sister Arthritis Father Clot Other Muscular dystrophy Social History Household Members: None Housing: Apartment Are you a primary school childcare attendant to a significant other at home: No Do you presently have visiting nurse or other home services: Yes (rotary driller helper three times a week) Alcohol intake: never Patient Tobacco Use Status: Never used Tobacco service: No Current occupational status: disabled Physical Exam Vital Signs: BMI result Body Mass Index 28.9 Const Other: Well-nourished well-developed very friendly female awake alert and oriented x3 in no acute distress Extrem Other: Bilateral lower extremity examination shows good capillary refill, no skin lesions noted, normal sensation light touch Right hip examination shows that the surgical incision is well healed, no erythema, minimal discomfort with range of motion, mild tenderness over her bursa Assessment & Plan Assessment & Plan (1) Fibromyalgia: Code(s): M79.7 - Fibromyalgia Category: Medical (2) Right hip pain: Code(s): M25.551 - Pain in right hip Category: Medical Plan Ms. Soria continues to do well after undergoing right total hip replacement surgery on June 25 1023. She will continue with her home exercise program. She does know to take antibiotics before any dental work. The patient states that she would like to be seen by a new docket specialist. Because our Rheumatology Department here at [facility] is not currently accepting new patients I did put in a referral to the [facility] in [place]. The patient will contact me prior to her follow-up appointment in 3 months should any questions or concerns arise. Feel free to call me at any time should questions regarding her orthopedic management arise. I spent 21 minutes in reviewing the patient's records and imaging studies, seeing the patient and documenting in the medical record. Orders: Orders XR hip RT min 2V 11/01/23 M25.551 - Pain in right hip Referrals Rheumatology Referral M79.7 - Fibromyalgia Coding Level of Care Code Est Pt Level 3 (88547) Diagnoses Fibromyalgia M79.7 Right hip pain M25.551
[2023-11-01 09:18] VITALS: BMI 28.9
== END 2023-11-01 09:42 | disposition home or self-care (01) ==
PROVIDERS: PCP Family Medicine; Visit Provider Orthopaedic Surgery
DX: M25.551 Pain in right hip (principal); Z96.641 Presence of right artificial hip joint; M79.7 Fibromyalgia
CPT/HCPCS: 99213

== ENCOUNTER 2023-11-01 09:11 | Outpatient (REF) | payer MEDICARE, SELFPAY ==
--- NOTE | ~2023-11-01 | XR_ITS ---
EXAMINATION: XR HIP, RIGHT CLINICAL INFORMATION: Right hip pain. COMPARISON: 07/12/2023. TECHNIQUE: AP view of the pelvis and a frog-leg lateral view of the right hip. FINDINGS: Bones are osteopenic. Prosthetic components of the right hip appear appropriately positioned without periprosthetic fracture. No evidence of loosening. A subtle lucency along the acetabular cup predates the presence of the right total hip prosthesis. Left hip joint appears well-preserved. Mild osteoarthritis in the SI joints. Degenerative spondylosis is present in the lumbar spine with left convex scoliotic curvature and a spinal stimulator device. Atherosclerotic calcifications are present in the abdominal aorta and iliac arteries. XR/XR hip RT min 2V IMPRESSION: 1. No acute osseous findings. Right total hip prosthesis appears appropriately positioned and unchanged. 2. Mild osteoarthritis in the SI joints. 3. Degenerative spondylosis in the lumbar spine.
== END 2023-11-01 09:12 | disposition home or self-care (01) ==
LOC: HO.HOSX 09:11
PROVIDERS: Visit Provider Orthopaedic Surgery
DX: M25.551 Pain in right hip (principal)
CPT/HCPCS: 73502

== ENCOUNTER 2023-12-13 09:37 | Outpatient (AMB) | payer OTHER, SELFPAY ==
[2023-12-13 09:39] VITALS: BMI 28.9
--- NOTE | 2023-12-13 09:39 | MHC.OFFVIS ---
Vital Signs 12/13/23 09:39 Height 5 ft 2 in Weight 158 lb BMI 28.9 Intake Visit Reasons: follow up s/p 10/23/23 Intake Note: Follow up 10/23/23 for VV, pt states right LE is worse than Left LE, pt states she gets cramping and swelling. Design And Sales Consultant Required: No Accompanied by: Self / Same As Patient Allergies ampicillin Allergy (Intermediate, Verified 12/13/23 09:43) swelling Clindamycin HCl Allergy (Intermediate, Verified 12/13/23 09:43) itching Penicillins Allergy (Intermediate, Verified 12/13/23 09:43) rash/itching/swelling Sulfa (Sulfonamide Antibiotics) Allergy (Intermediate, Verified 12/13/23 09:43) redness/fever tetracycline Allergy (Intermediate, Verified 12/13/23 09:43) SOB cephalexin [Keflex] Allergy (Unknown, Verified 12/13/23 09:43) reaction unknown, long time ago oxaprozin [Daypro] Allergy (Unknown, Verified 12/13/23 09:43) reaction unknown, long time ago HPI HPI follow up s/p 10/23/23: Details: Very pleasant 73-year-old female presents for follow-up regarding lower extremity pain. This has been a persistent problem for her and she actually has been worked up by Orthopedics and Rheumatology. She did have a presumptive diagnosis of fibromyalgia in the past. She reports that she is being worked up for dystonia at the current time. She reports no significant swelling but pain more so in the ankles and calves. She now presents for follow-up with venous insufficiency testing FOR[facility]LY [facility], [facility] Medical History Arthritis of right hip Scoliosis PONV (postoperative nausea and vomiting) Skin cancer Arthritis Cirrhosis Asthma Restless legs syndrome (RLS) GERD (gastroesophageal reflux disease) TMJ (dislocation of temporomandibular joint) Obstructive sleep apnea Diabetes Hypothyroidism Fibromyalgia Mediterranean fever IBS (irritable bowel syndrome) COPD (chronic obstructive pulmonary disease) Chronic fatigue HTN (hypertension) Surgical History History of esophagogastroduodenoscopy (EGD) H/O colonoscopy Hx of hysterectomy Hx of cardiac catheterization Hx of dilation and curettage S/P insertion of spinal cord stimulator H/O abdominal surgery H/O breast surgery Hx of shoulder replacement Hx of cervical spine surgery Family History Sister Arthritis Father Clot Other Muscular dystrophy Social History Household Members: None Housing: Apartment Are you a primary patient care associate to a significant other at home: No Do you presently have visiting nurse or other home services: Yes (paedodontist three times a week) Alcohol intake: never Patient Tobacco Use Status: Never used Tobacco service: No Current occupational status: disabled Review of Systems Const All systems reviewed & are unremarkable except as noted in HPI and below Reports no additional complaints ENT Reports Normal hearing present Card Denies chest pain, Denies chest pain at rest, Denies chest pain with activity and Denies pedal edema Resp Denies cough GI Denies abdominal pain Musc Denies abnormal gait, Denies muscle cramps and Denies radiating pain into limb Skin/Breast Denies skin ulcer and Denies wounds Neuro Reports Normal hearing present and Denies abnormal gait Psych Reports no additional complaints Physical Exam Vital Signs: BMI result Body Mass Index 28.9 Const General: cooperative, healthy appearing and comfortable Orientation/consciousness: oriented to person, oriented to place and oriented to time HEENT Head: Yes normal to inspection Neck Neck: Yes normal visual inspection Carotids: no bruits Chest Chest palpation & inspection: normal inspection of the chest Resp Effort & Inspection: normal respiratory effort and able to speak in complete sentences Auscultation: clear to auscultation bilaterally, no crackles, no rales, no rhonchi and no wheezes Cardio Rate: regular rate Rhythm: regular rhythm Heart sounds: S1 normal heart sound present and S2 normal heart sound present Bruits: no carotid bruits Peripheral pulses: Peripheral pulses 2+ throughout GI Inspection: Yes normal to inspection Skin Wounds: no wounds Hair: normal Neuro General: oriented to person, oriented to place and oriented to time Cranial nerves: Yes CN's II-XII intact bilaterally and Yes Normal hearing present Cognition (Neuro): normal cognition Motor exam (neuro): 5/5 motor strength present throughout Extrem Other: venous exam: No significant superficial varicosities or spider telangiectasias, minimal edema General: No clubbing, No cyanosis and No edema Psych Appearance: grossly normal Mental Status: mental status grossly normal Speech and movement: Normal speech and movement present Results Reviewed Results Reviewed: Brief summary of venous insufficiency testing is as follows: right great saphenous vein: negative right small saphenous vein: negative right accessory vein: none present left great saphenous vein: negative left small saphenous vein: negative left accessory vein: none present Please note there is no evidence of any venous aneurysms or significant tortuosity Assessment & Plan Assessment & Plan (1) Lower extremity pain, bilateral: Code(s): M79.604 - Pain in right leg; M79.605 - Pain in left leg Category: Medical Plan: Unclear etiology of lower extremity pain. It does not appear to be vascular in nature as she does have palpable arterial pulses and venous insufficiency testing is essentially negative. We did discuss routine conservative measures including compression elevation and exercise. She does have a follow-up with Rheumatology in somebody specializing and dystonia. I do think that may be her best treatment option. Thank you for allowing us to assist in her care. If there are any questions or concerns please do not hesitate to contact us. Coding Level of Care Code Est Pt Level 4 (75448) Diagnoses Lower extremity pain, bilateral M79.604; M79.605
== END 2023-12-13 10:09 | disposition home or self-care (01) ==
PROVIDERS: PCP Family Medicine; Visit Provider Surgery Vascular Surgery
DX: M79.604 Pain in right leg (principal); M79.605 Pain in left leg
CPT/HCPCS: 99214

== ENCOUNTER → 2023-12-13 09:37 | Outpatient (BNVA) | payer OTHER, SELFPAY | PROVIDERS: PCP Family Medicine; Visit Provider Surgery Vascular Surgery ==

== ENCOUNTER 2024-01-30 08:08 | Outpatient (AMB) | payer OTHER, SELFPAY ==
--- NOTE | 2024-01-30 08:18 | A.OFFVIS_ITS ---
Intake Visit Reasons: Right knee pain, Right hip discomfort Intake Note: Meron is a 73 year old female who presents with complaints of progressively worsening right knee pain. The patient did undergo right total hip replacement surgery on 06/25/2023. She reports mild intermittent discomfort along the latera l aspect of her right hip. She denies any fevers or chills. She describes her right knee pain as sharp in nature. She has had cortisone injections given into her right knee in the past. She got fairly good relief from those injections. She wishes to hold off on right knee surgery for as long as possible. Allergies ampicillin Allergy (Intermediate, Verified 01/30/24 08:28) swelling Clindamycin HCl Allergy (Intermediate, Verified 01/30/24 08:28) itching Penicillins Allergy (Intermediate, Verified 01/30/24 08:28) rash/itching/swelling Sulfa (Sulfonamide Antibiotics) Allergy (Intermediate, Verified 01/30/24 08:28) redness/fever tetracycline Allergy (Intermediate, Verified 01/30/24 08:28) SOB cephalexin [Keflex] Allergy (Unknown, Verified 01/30/24 08:28) reaction unknown, long time ago oxaprozin [Daypro] Allergy (Unknown, Verified 01/30/24 08:28) reaction unknown, long time ago Medication List - Last Reconciled 01/30/24 by Archie Ramos MD acetaminophen 650 mg (2 x 325 mg) PO Q6H PRN 30 days albuterol sulfate 90 mcg/actuation 1 inh inhalation Q4H PRN atorvastatin 20 mg PO BEDTIME baclofen 10 mg PO TID blood sugar diagnostic (OneTouch Verio test strips) As directed cetirizine 10 mg PO BEDTIME cholecalciferol (vitamin D3) (Vitamin D3) 50 mcg PO QAM colchicine 0.3 mg PO QAM CPAP (CPAP Machine/Device) As directed epinephrine 0.3 mg IM ONCE PRN famotidine 40 mg PO BID fluticasone propionate 50 mcg/actuation 1 spray intranasal DAILY hydrochlorothiazide 12.5 mg PO QAM insulin glargine (Lantus Solostar U-100 Insulin) 24 units subcut BEDTIME levothyroxine 125 mcg PO QAM loperamide 2 mg PO Q4H PRN magnesium 200 mg PO QAM metoprolol succinate ER 25 mg PO QAM nitroglycerin 0.3 mg sublingual ONCE PRN Oxygen Home Use As directed pen needle, diabetic (BD Sun 2nd Gen Pen Needle) As directed potassium chloride ER 10 mEq PO QAM sumatriptan succinate 100 mg PO DAILY PRN PFSH Medical History Arthritis of right hip Scoliosis PONV (postoperative nausea and vomiting) Skin cancer Arthritis Cirrhosis Asthma Restless legs syndrome (RLS) GERD (gastroesophageal reflux disease) TMJ (dislocation of temporomandibular joint) Obstructive sleep apnea Diabetes Hypothyroidism Fibromyalgia Mediterranean fever IBS (irritable bowel syndrome) COPD (chronic obstructive pulmonary disease) Chronic fatigue HTN (hypertension) Surgical History History of esophagogastroduodenoscopy (EGD) H/O colonoscopy Hx of hysterectomy Hx of cardiac catheterization Hx of dilation and curettage S/P insertion of spinal cord stimulator H/O abdominal surgery H/O breast surgery Hx of shoulder replacement Hx of cervical spine surgery Family History Sister Arthritis Father Clot Other Muscular dystrophy Social History Household Members: None Housing: Apartment Are you a primary career technical education instructor to a significant other at home: No Do you presently have visiting nurse or other home services: Yes (crm developer three times a week) Alcohol intake: never Patient Tobacco Use Status: Never used Tobacco service: No Current occupational status: disabled Physical Exam Const Other: Well-nourished well-developed very friendly female awake alert and oriented x3 in no acute distress Extrem Other: Right hip examination shows that the surgical incision is well healed, no erythema, minimal discomfort with range of motion, mild tenderness over her bursa Right knee examination shows a minimal effusion, palpable crepitus with motion, pain with range of motion, no instability Office Procedures Joint Injection/Aspiration Joint Injection/Aspiration Primary Site: right knee Prep: site was prepped using aseptic technique Injected: 40 mg of, DepoMedrol and 1% plain lidocaine Procedure: The patient tolerated the procedure well Coding 95731 - Large joint Procedure code (CPT) selection complete Results Reviewed Results Reviewed: X-rays of the patient's right hip taken today show a total hip arthroplasty in good position with no signs of loosening, no acute bony abnormalities X-rays of the patient's right knee taken previously show joint space narrowing, subchondral sclerosis, no bony abnormalities Assessment & Plan Assessment & Plan (1) Arthritis of right knee: Code(s): M17.11 - Unilateral primary osteoarthritis, right knee Category: Medical (2) Right hip pain: Code(s): M25.551 - Pain in right hip Category: Medical (3) Right knee pain: Code(s): M25.561 - Pain in right knee Plan Meron continues to do well after undergoing right total hip replacement surgery. She does have right knee pain due to degenerative joint disease. The risks and benefits of a right knee cortisone injection were discussed at length with the patient. The patient wished to proceed. She tolerated the injection well. She will continue with her home exercise program. She will contact me prior to her follow-up appointment in 3 months should any questions or concerns arise. Feel free to call me at any time should questions regarding her orthopedic management arise. I spent 21 minutes in reviewing the patient's records and imaging studies, seeing the patient and documenting in the medical record. Orders: Orders AMB Joint Injection/Aspiration Today M17.11 - Unilateral primary osteoarthritis, right knee XR hip RT min 2V Today M25.551 - Pain in right hip Coding Level of Care Code Est Pt Level 3 (91201) Complex EM visit Add On G2211 Diagnoses Arthritis of right knee M17.11 Right hip pain M25.551 Right knee pain M25.561 CPT Codes Coding - 96669 Large joint: 91625 - Large joint ([id number])
== END 2024-01-30 08:45 | disposition home or self-care (01) ==
PROVIDERS: PCP Family Medicine; Visit Provider Orthopaedic Surgery
DX: M17.11 Unilateral primary osteoarthritis, right knee (principal); M25.551 Pain in right hip
CPT/HCPCS: 20610; 99213

== ENCOUNTER 2024-01-30 12:57 | Outpatient (REF) | payer MEDICARE, SELFPAY ==
--- NOTE | ~2024-01-30 | XR_ITS ---
EXAMINATION: XR HIP RIGHT 2 VIEWS CLINICAL INFORMATION: Pain in right hip M25.551. COMPARISON: XR Right hip 11/01/2023 TECHNIQUE: Two views of the right hip. FINDINGS: Prosthetic components of the right total hip arthroplasty are appropriately aligned without periprosthetic fracture or abnormal lucency. No component migration. Soft tissues are normal. XR/XR hip RT min 2V IMPRESSION: Right hip arthroplasty, no acute findings. Electronically signed by: Dana Tuttle MD 03/26/2024 03:32 PM LINDA BAILON
== END 2024-01-30 12:58 | disposition home or self-care (01) ==
LOC: HO.HOSX 12:57
PROVIDERS: Visit Provider Orthopaedic Surgery
DX: M17.11 Unilateral primary osteoarthritis, right knee (principal); M25.551 Pain in right hip
CPT/HCPCS: 20610; 73502; J1010; J2003

== ENCOUNTER 2024-02-08 10:52 | Outpatient (AMB) | payer OTHER, SELFPAY ==
--- NOTE | 2024-02-08 11:03 | HO.SPINEOV ---
Intake Visit Reasons: f/u after Hip replacement Intake Note: Ms. Soria is here today to f/u after her hip replacement. Information Technology Administrator Required: No Allergies ampicillin Allergy (Intermediate, Verified 01/30/24 08:28) swelling Clindamycin HCl Allergy (Intermediate, Verified 01/30/24 08:28) itching Penicillins Allergy (Intermediate, Verified 01/30/24 08:28) rash/itching/swelling Sulfa (Sulfonamide Antibiotics) Allergy (Intermediate, Verified 01/30/24 08:28) redness/fever tetracycline Allergy (Intermediate, Verified 01/30/24 08:28) SOB cephalexin [Keflex] Allergy (Unknown, Verified 01/30/24 08:28) reaction unknown, long time ago oxaprozin [Daypro] Allergy (Unknown, Verified 01/30/24 08:) reaction unknown, long time ago Assessment & Plan Assessment & Plan (1) Scoliosis (and kyphoscoliosis), idiopathic: Code(s): M41.20 - Other idiopathic scoliosis, site unspecified Category: Medical Plan Mrs Soria is here in follow-up. Please see my note for the specifics of her problem. She was last seen here about a year ago. She has had diffuse chronic pain for many years, fibromyalgia, spinal cord stimulator etc.. She underwent her hip replacement last year and had good relief of some of the pain in her anterior thigh, however she still continues to have multiple diffuse pain all throughout her thoracic and lumbar spine, hips, lower extremities as well as her SI joints. She has had a number of SI joint injections which have given her no relief not even for a brief hour or so after they were done. At times the injections have sent her blood sugars up into the 500 so she is hesitant to have these done anymore. I reviewed her x-rays under lumbar MRI done here at [facility] with her here again today in the office and she does have scoliotic curvature of the thoracolumbar junction as well as a spondylolisthesis at L4-5. She also has arthritic SI joints on her x-rays. Her bone quality also looks like it is fairly porous. She did have a bone density test done recently showing osteopenia but I suspect this would not be optimal bone quality for pedicle screws. I reviewed her imaging with Dr. Hernández, we will get a noncontrast CT of the lumbar spine, repeat scoliosis x-rays and re-evaluate her after that. Total amount of time spent in this visit was 20 minutes in discussion of symptoms, lumbar x-ray and MRI imaging results and subsequent plan of care Ariel Hernández MD,PhD [facility] Orders: Orders XR scoliosis survey Today M41.20 - Other idiopathic scoliosis, site unspecified XR lumbar spine 4V min Today M41.20 - Other idiopathic scoliosis, site unspecified CT lumbar spine wo IV con Today M41.20 - Other idiopathic scoliosis, site unspecified Coding Level of Care Code Est Pt Level 3 (82424) Diagnoses Scoliosis (and kyphoscoliosis), idiopathic M41.20
== END 2024-02-08 12:21 | disposition home or self-care (01) ==
PROVIDERS: PCP Family Medicine; Visit Provider Physician Assistant
DX: M41.20 Other idiopathic scoliosis, site unspecified (principal)
CPT/HCPCS: 99213

== ENCOUNTER → 2024-02-08 10:52 | Outpatient (BNVA) | payer OTHER, SELFPAY | PROVIDERS: PCP Family Medicine; Visit Provider Physician Assistant ==

== ENCOUNTER 2024-03-05 07:47 | Outpatient (REF) | payer MEDICARE, SELFPAY | END 2024-03-05 07:48 | disposition home or self-care (01) | LOC: HO.CT 07:47 | PROVIDERS: PCP Family Medicine; Visit Provider Physician Assistant | DX: M41.20 Other idiopathic scoliosis, site unspecified (principal) | CPT/HCPCS: 72082; 72110; 72131 ==

== ENCOUNTER → 2024-03-05 07:49 | Outpatient (BNV) | payer MEDICARE, SELFPAY | PROVIDERS: PCP Family Medicine; Visit Provider Radiology Diagnostic Radiology | DX: M41.26 Other idiopathic scoliosis, lumbar region (principal) | CPT/HCPCS: 72131 ==

== ENCOUNTER 2024-03-26 08:13 | Outpatient (AMB) | payer OTHER, SELFPAY ==
--- NOTE | 2024-03-26 08:18 | MHC.OFFVIS ---
Vital Signs 03/26/24 08:25 Height 5 ft 2 in Weight 158 lb BMI 28.9 Intake Visit Reasons: New prob- Left hip pain Intake Note: Meron is a 73 year old female presenting with complaints of progressively worsening low back pain which radiates into the posterior aspect of her left hip. She did undergo right total hip replacement surgery earlier this year. She denies any pain in her right hip. She is due to follow-up in the neurosurgery office tomorrow. Allergies ampicillin Allergy (Intermediate, Verified 03/26/24 08:20) swelling Clindamycin HCl Allergy (Intermediate, Verified 03/26/24 08:20) itching Penicillins Allergy (Intermediate, Verified 03/26/24 08:20) rash/itching/swelling Sulfa (Sulfonamide Antibiotics) Allergy (Intermediate, Verified 03/26/24 08:20) redness/fever tetracycline Allergy (Intermediate, Verified 03/26/24 08:20) SOB cephalexin [Keflex] Allergy (Unknown, Verified 03/26/24 08:20) reaction unknown, long time ago oxaprozin [Daypro] Allergy (Unknown, Verified 03/26/24 08:20) reaction unknown, long time ago Medication List - Last Reconciled 03/26/24 by Archie Ramos MD albuterol sulfate 90 mcg/actuation 1 inh inhalation Q4H PRN atorvastatin 20 mg PO BEDTIME baclofen 10 mg PO TID blood sugar diagnostic (OneTouch Verio test strips) As directed cetirizine 10 mg PO BEDTIME cholecalciferol (vitamin D3) (Vitamin D3) 50 mcg PO QAM colchicine 0.3 mg PO QAM CPAP (CPAP Machine/Device) As directed epinephrine 0.3 mg IM ONCE PRN famotidine 40 mg PO BID fluticasone propionate 50 mcg/actuation 1 spray intranasal DAILY hydrochlorothiazide 12.5 mg PO QAM ibuprofen (Advil) 600 mg PO BID insulin glargine (Lantus Solostar U-100 Insulin) 24 units subcut BEDTIME levothyroxine 125 mcg PO QAM loperamide 2 mg PO Q4H PRN magnesium 200 mg PO QAM metoprolol succinate ER 25 mg PO QAM nitroglycerin 0.3 mg sublingual ONCE PRN Oxygen Home Use As directed pen needle, diabetic (BD Sun 2nd Gen Pen Needle) As directed potassium chloride ER 10 mEq PO QAM sumatriptan succinate 100 mg PO DAILY PRN turmeric mg PO PFSH Medical History Arthritis of right hip Scoliosis PONV (postoperative nausea and vomiting) Skin cancer Arthritis Cirrhosis Asthma Restless legs syndrome (RLS) GERD (gastroesophageal reflux disease) TMJ (dislocation of temporomandibular joint) Obstructive sleep apnea Diabetes Hypothyroidism Fibromyalgia Mediterranean fever IBS (irritable bowel syndrome) COPD (chronic obstructive pulmonary disease) Chronic fatigue HTN (hypertension) Surgical History History of esophagogastroduodenoscopy (EGD) H/O colonoscopy Hx of hysterectomy Hx of cardiac catheterization Hx of dilation and curettage S/P insertion of spinal cord stimulator H/O abdominal surgery H/O breast surgery Hx of shoulder replacement Hx of cervical spine surgery Family History Sister Arthritis Father Clot Other Muscular dystrophy Social History Household Members: None Housing: Apartment Are you a primary foster care worker to a significant other at home: No Do you presently have visiting nurse or other home services: Yes (vertical mill operator three times a week) Alcohol intake: never Patient Tobacco Use Status: Never used Tobacco service: No Current occupational status: disabled Physical Exam Vital Signs: BMI result Body Mass Index 28.9 Const Other: Well-nourished well-developed very friendly female awake alert and oriented x3 in no acute distress Extrem Other: Left hip examination shows full range of motion when compared to her right hip, minimal discomfort with range of motion, no tenderness over her bursa, tenderness over her left sacroiliac joint Results Reviewed Results Reviewed: X-rays of the patient's left hip taken on 01/30/2024 show minimal diffuse joint space narrowing, no acute bony abnormalities Assessment & Plan Assessment & Plan (1) Chronic SI joint pain: Code(s): M53.3 - Sacrococcygeal disorders, not elsewhere classified; G89.29 - Other chronic pain Category: Medical Plan Meron presents with pain along the posterior aspect of her left hip most likely due to sacroiliitis. The patient has minimal degenerative changes on her left hip x-ray. She will follow up in the neurosurgery office as scheduled tomorrow. She will contact me prior to her annual follow-up appointment for her right total hip arthroplasty should her symptoms worsen in any way. Feel free to call me at any time should questions regarding her orthopedic management arise. I spent 21 minutes in reviewing the patient's records and imaging studies, seeing the patient and documenting in the medical record. Coding Level of Care Code Est Pt Level 3 (27192) Complex EM visit Add On G2211 Diagnoses Chronic SI joint pain M53.3; G89.29
[2024-03-26 08:25] VITALS: BMI 28.9
== END 2024-03-26 08:41 | disposition home or self-care (01) ==
PROVIDERS: PCP Family Medicine; Visit Provider Orthopaedic Surgery
DX: M53.3 Sacrococcygeal disorders, not elsewhere classified (principal); G89.29 Other chronic pain
CPT/HCPCS: 99213; G2211

== ENCOUNTER → 2024-03-26 08:13 | Outpatient (BNVA) | payer OTHER, SELFPAY | PROVIDERS: PCP Family Medicine; Visit Provider Orthopaedic Surgery ==

== ENCOUNTER 2024-03-27 13:25 | Outpatient (AMB) | payer MEDICARE, SELFPAY ==
--- NOTE | 2024-03-27 13:56 | A.SPINEOV_ITS ---
Intake Visit Reasons: Discuss CT Intake Note: Ms. Soria is here today to discus the results of her CT. Occupational Therapy Program Director Required: No Allergies ampicillin Allergy (Intermediate, Verified 03/26/24 08:20) swelling Clindamycin HCl Allergy (Intermediate, Verified 03/26/24 08:20) itching Penicillins Allergy (Intermediate, Verified 03/26/24 08:20) rash/itching/swelling Sulfa (Sulfonamide Antibiotics) Allergy (Intermediate, Verified 03/26/24 08:20) redness/fever tetracycline Allergy (Intermediate, Verified 03/26/24 08:20) SOB cephalexin [Keflex] Allergy (Unknown, Verified 03/26/24 08:20) reaction unknown, long time ago oxaprozin [Daypro] Allergy (Unknown, Verified 03/26/24 08:20) reaction unknown, long time ago Assessment & Plan Assessment & Plan (1) Scoliosis (and kyphoscoliosis), idiopathic: Code(s): M41.20 - Other idiopathic scoliosis, site unspecified Category: Medical Plan Mrs Soria is here today to review her lumbar CT and x-rays done at [place]. Please refer to my previous notes for the specifics of her problem. Her scoliosis does appear to accentuate when she stands up, and encompasses L1-L5. I reviewed her imaging with Dr. Hernández. She has what looks like osteoporosis on the CT and given the amount of extensive degeneration that we see, we suspect she would be high risk for any kind of surgery to correct the scoliosis and disc degeneration in her back and therefore we are not offering surgery to her. What is more, she generally does not respond well to surgeries and has had limited success when she has had surgery for other pain problems. This may overlap with her fibromyalgia. Due to a combination of all these factors, we do not think she is a good candidate for surgery. Total amount of time spent in this visit was 20 minutes in discussion of symptoms, CT and x-ray imaging results and subsequent plan of care Ariel Hernández MD,PhD [facility] Coding Level of Care Code Est Pt Level 3 (16387) Diagnoses Scoliosis (and kyphoscoliosis), idiopathic M41.20
== END 2024-03-27 15:04 | disposition home or self-care (01) ==
PROVIDERS: PCP Family Medicine; Visit Provider Physician Assistant
DX: M41.20 Other idiopathic scoliosis, site unspecified (principal)
CPT/HCPCS: 99213

== ENCOUNTER → 2024-03-27 13:25 | Outpatient (BNVA) | payer MEDICARE, SELFPAY | PROVIDERS: PCP Family Medicine; Visit Provider Physician Assistant | DX: M41.20 Other idiopathic scoliosis, site unspecified (principal) | CPT/HCPCS: 99212 ==

== ENCOUNTER 2024-07-30 08:08 | Outpatient (AMB) | payer MEDICARE, SELFPAY ==
--- OUTSIDE RECORDS SUMMARY | 2024-07-30 08:11 | XMS_ITS | Data Portability ---
Author Organization [place] - [facility], Allergy Address [address] [address] Assessment No assessment recorded. Plan of Treatment Reminders Order Date Submit Date Provider Last Modified By Organization Details Last Modified Time Details Appointments None record ed. Lab None record ed. Referral None record ed. Procedures None record ed. Surgeries None record ed. Imaging None record ed. Medication Orders None record ed. Patient TargetsNo targets recorded. Patient InstructionsNo instructions recorded. Reason for Referral None Reported. Results Created Date Observation Date Name Description Value Unit Range Abnormal Flag Note LastModifiedBy Organization Detail LastModifiedTime 01/10/20 24 audio gram No observ ation record ed. BARCODE Not Available 2023 16:37:48 Result Notes None recorded. Problems Name Problem SNOMED Code Status Onset Date Resolution Date Notes Provider Name and Address Organization Details Recorded Time Sensorine ural hearing loss 23207668 Active 2020 Sensory hearing loss NOS; Note: Date Diagnosed: 12/30/2020 4:53 PM (H90.5) Not Available [facility] 4 02:34:03 Obstructi ve sleep apnea syndrome 65627047 Active 2020 Obstructiv e sleep apnea (adult) (pediatric ); Note: Date Diagnosed: 12/30/2020 4:53 PM (G47.33) Not Available [facility] 4 02:34:13 Sensorine ural hearing loss of bilateral ears 257323218 Active 2023 JODY ARCEO [address], [address] , [place] - [facility] 4 13:10:43 Problem Notes None recorded. Procedures Surgical History Date Name Laterality Status Provider Name and Address Organization Details Recorded Time 4 Air & Speech Audio with Tymps (96517, 24241 & 95835) completed JODY ARCEO [address] [facility],[place] [address], [place], [address], [facility] 01/10/2024 13:10:16 total replacement of hip completed NIMCO CARRILLO MD [address] [facility],[address], [address], [facility] 01/10/2024 13:21:32 Imaging Results Imaging Date Name Status LastModified by Organiz ation Details LastModified Time 01/10/2024 audiogram completed BARCODE Information no t available 01/10/2024 16:37:48 Procedure Notes None recorded. Medical Equipment None Reported. Allergies Allergen ID Allergen Name Allergen Category Reaction Reaction Severity Criticality Documentation Date Start Date Code Code System Note Provider Name and Address Organization Details Recorded Time 00702 Daypro medicatio n other Not available Not available 08/28/2023 47204 1 RxNorm React ion: Unkno wn; Not Available [facility] 4 00:54:04 72651 tetracycl ine medicatio n other Not available Not available 08/28/2023 03533 RxNorm React ion: Unkno wn; Not Available [facility] 4 00:54:06 06988 Bactrim medicatio n other Not available Not available 08/28/2023 06019 9 RxNorm React ion: Unkno wn; Not Available [facility] 4 00:54:12 95791 Product containin g penicilli n (product) medicatio n other Not available Not available 08/28/2023 21767 8001 SNOMED React ion: Unkno wn; Not Available [facility] 4 00:54:16 85258 ampicilli n medicatio n other Not available Not available 08/28/2023 733 RxNorm React ion: Unkno wn; Not Available [facility] 4 00:54:17 10760 Keflex medicatio n other Not available Not available 08/28/2023 26519 7 RxNorm React ion: Unkno wn; Not Available [facility] 4 00:54:19 67665 clindamyc in Not available other Not available Not available 08/28/2023 2582 RxNorm React ion: Unkno wn; Not Available [facility] 4 00:54:20 Medications Name Sig Start Date Stop Date Status Note LastModified by Organization Details LastModified Time atorvastati n 20 mg tablet Take 1 tablet every day by oral route. active Not Available Not Available No t Available loperamide 2 mg capsule Take by oral route. active Not Available Not Available No t Available nitroglycer in 0.[address] by sublingua l route. active Not Available Not Available No t Available sumatriptan 100 mg tablet Take by oral route. active Not Available Not Available No t Available famotidine 40 mg tablet Take 1 tablet every day by oral route. active Not Available Not Available No t Available baclofen 10 mg tablet Take 1 tablet 3 times a day by oral route. active Not Available Not Available No t Available olopatadine 0.1 % eye drops INSTILL 1 DROP INTO AFFECTED EYE(S) BY OPHTHALMI C ROUTE 2 TIMES PER DAY AT AN INTERVAL OF 6 TO 8 HOURS active Not Available Not Available No t Available hydrochloro thiazide 25 mg tablet Take 1 tablet every day by oral route. active Not Available Not Available No t Available metoprolol succinate ER 25 mg tablet,exte nded release 24 hr Take 1 tablet every day by oral route. active Not Available Not Available No t Available levofloxaci n 500 mg tablet Take 1 tablet every 24 hours by oral route. active Not Available Not Available No t Available fluticasone propionate 50 mcg/actuati on nasal spray,suspe nsion [place] 1 spray every day by intranasa l route. active Not Available Not Available No t Available insulin glargine (U-100) 100 unit/mL (3 mL) subcutaneou s pen Inject by subcutane ous route. active Not Available Not Available No t Available cetirizine 10 mg capsule Take by oral route. active Not Available Not Available No t Available levothyroxi ne 125 mcg capsule Take 1 capsule every day by oral route. active Not Available Not Available No t Available epinephrine 0.1 mg/0.1 mL injection, auto-inject or Take by injection route. active Not Available Not Available No t Available albuterol sulf 90 mcg/actuati on breath activated powder inhaler,sen sor Inhale 2 puffs every 4 hours by inhalatio n route. active Not Available Not Available No t Available magnesium 100 mg (as glycinate) capsule Take by oral route. active Not Available Not Available No t Available albuterol 90 mcg-budeson lizz 80 mcg/actuati on HFA aerosol inhaler Inhale by inhalatio n route. 01/09 completed Not Available Not Available Not Available Vitals Date Recorded Body height Body mass index (BMI) Body weight Provider Name and Address Organization Details Last Updated DateTime 01/10/2024 157.48 cm 28.9 kg/m2 88287.59 g Nori Taylor [place] - [facility] 01/10/2024 13:16:20 Social History None recorded. Functional Status None recorded. Mental Status None recorded. Family History Nothing Reported. Medical History Condition Response Diabetes Y Asthma Y Gynecological HistoryNo gynecological history recorded. Obstetrics History GPAL:G 0 P 0 0 0 0 Past Encounters Encounter ID Performer Location Encounter Start Date Encounter Closed Date Diagnosis/Indication Diagnosis SNOMED-CT Code Diagnosis ICD10 Code Diagnosis Note [id number] NIMCO CARRILLO MD [facility] on [address] [place] [address] 01/10/2024 12:54:30 01/10/2024 13:33:19 Sensorineural hearing loss of bilateral ears 787102039 H90.3 73 yo F with hearing loss, no significan t change since previous testing in 2020, she is a candidate for amplificat ion. Medical clearance given. Audiologic al evaluation results:Ri ght ear:{{Norm al sloping* M ild Modera te Moderat ladonna-severe Severe Pr ofound Nor mal auditory thresholds }} to {{mild* mo derate mod erately-se jose sever e profound with}} {{sensorin eural hearing loss with* cond uctive hearing loss with mixed hearing loss with}} {{excellen t* good fa ir poor no t measurable }} word recognitio n.Left ear:{{Norm al sloping* M ild Modera te Moderat ladonna-severe Severe Pr ofound Nor mal auditory thresholds }} to {{mild* mo derate mod erately-se jose sever e profound with}} {{sensorin eural hearing loss with* cond uctive hearing loss with mixed hearing loss with}} {{excellen t* good fa ir poor no t measurable }} word recognitio n.Tympanom etry:Right Ear:{{Type A* Type As Type Ad Type C Type C, shallow & rounded Ty pe B Type B with large volume Cou ld not maintain a hermetic seal}}Left Ear:{{Type A* Type As Type Ad Type C Type C, shallow & rounded Ty pe B Type B with large volume Cou ld not maintain a hermetic seal}} Health Concerns Section Related Observation LastModified by Organization Detai ls LastModified Time None Recorded Concern Status LastModified by Organization Details LastModified Time None Recorded Advance Directives Directive None Recorded Payers Encounter Date Sequence Insurance Name Policy Number Policy Brown Covered Member ID Brown Member ID Guarantor Name 01/10/2024 1 [facility] - MEDICARE PREFERRED (MEDICARE REPLACEMENT HMO) JORGE Soria [id number] Renate Soria Notes Date Note Type Note Provider Name and Address Organization Details Recorded Time 01/10/2024 text/html 73 yo F with hearing loss and tinnitus. Has been seen in the past for hearing loss. H/o familial mediterranean fever, CFS, fibromyalgia,dyston ia. NIMCO CARRILLO MD [address] [place] [address], [phone], [facility] - [facility] 01/16/2024 08:39:41 OBGyn Episode No OBEpisode recorded.
--- OUTSIDE RECORDS SUMMARY | 2024-07-30 08:11 | XMS_ITS | Clinical Summary ---
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 0 Active colchicine 0.6 MG tablet Take 1 tablet (0.6 mg total) by mouth daily. 0 Active famotidine (PEPCID) 40 MG tablet Take 1 tablet (40 mg total) by mouth 2 (two) times a day. 0 Active fluticasone (FLONASE) 50 MCG/ACT nasal spray spray/apply 1 spray in each nostril daily. 0 Active hydroCHLOROthiazide (MICROZIDE) 12.5 MG capsule Take 1 capsule (12.5 mg total) by mouth daily. 0 Active levothyroxine (SYNTHROID) tablet 125 mcg Take 1 tablet (125 mcg total) by mouth every morning on an empty stomach. 0 Active nitroglycerin (NITROSTAT) 0.[address] 1 tablet (0.4 mg total) under the tongue every 5 (five) minutes as needed for chest pain. 0 Active cetirizine (ZyrTEC) 10 MG tablet Take 1 tablet (10 mg total) by mouth daily. 0 Active baclofen (LIORESAL) 10 MG tablet Take 1 tablet (10 mg total) by mouth 3 (three) times a day. 0 Active vitamin D3 (VITAMIN D3) 10 MCG (400 UNIT) tablet Take 1 tablet (400 Units total) by mouth daily. 0 Active vitamin B-12 (CYANOCOBALAMIN) tablet 1000 mcg Take 1 tablet (1,000 mcg total) by mouth daily. 30 tablet 3 03/16/2021 Active EPINEPHrine 0.3 MG/0.3ML SOAJ USE DIRECTED FOR ANAPHYLAXIS THEN CALL 911 0 07/07/2021 Active insulin glargine (Lantus SoloStar) 100 UNIT/ML injection Inject 12 Units under the skin every night at bedtime. 0 Active atorvastatin (LIPITOR) tablet 20 mg Take 1 tablet (20 mg total) by mouth daily. 0 Active metoprolol succinate (TOPROL-XL) 24 hr tablet 25 mg Take 1 tablet (25 mg total) by mouth daily. 0 09/27/2022 Active SUMAtriptan (IMITREX) 100 MG tablet TAKE 1 TABLET BY MOUTH NEEDED FOR MIGRAINE HEADACHE 0 08/28/2022 Active BD Pen Needle Sun 2nd Gen 32G X 4 MM MISC USE 1 PEN NEEDLE ONCE DAILY NEEDED 0 08/18/2022 Active Family History Medical History Relation Name Comments Multiple sclerosis Cousin Dementia Mother Stroke Mother Multiple sclerosis Paternal Grandfather Stroke Sister Relation Name Status Comments Cousin Mother Paternal Grandfather Sister Social History Tobacco Use Types Packs/Day Years Used Date Smoking Tobacco: Never Smokeless Tobacco: Never Tobacco Cessation:Counseling Given: Not Answered Alcohol Use Standard Drinks/Week Comments Never 0 (1 standard drink = 0.6 oz pur e alcohol) Sex and Gender Information Value Date Recorded Sex Assigned at Female 12/07/2020 3:32 PM EDT Gender Identity Not on file Sexual Orientation Not on file Job Start Date Occupation Industry Not on file Not on file Not on file Last Filed Vital Signs Vital Sign Reading Time Taken Comments Blood Pressure 156/77 08/29/2023 8:31 AM EDT Pulse 65 08/29/2023 8:31 AM EDT Temperature 36.1 ??C (97 ??F) 08/29/2023 8:31 AM EDT Respiratory Rate 16 10/23/2022 8:46 AM EDT Oxygen Saturation 95% 08/29/2023 8:31 AM EDT Inhaled Oxygen Concentration - - Weight 71.4 kg (157 lb 6.4 oz) 08/29/2023 8:31 A M EDT Height 154.9 cm (5' 1 ) 08/29/2023 8:31 AM EDT Body Mass Index 29.74 08/29/2023 8:31 AM EDT Plan of Treatment Health Maintenance Due Date Last Done Comments Hepatitis C Screening 1952 Depression Screening 1964 BMI Counseling 1970 Preventative Health Evaluation 1970 Colon Cancer Screening (Colonoscopy) 1997 Breast Cancer Screening (Mammogram) 2002 Fall Risk Assessment 2017 Osteoporosis Screening (DEXA Scan) 2017 COVID-19 Vaccine ( season) 2023 07/26/2021, 07/06/2020, 06/10/2020 Influenza Vaccine (#1) 2023 , 01/31/2022, 01/08/2021, Additional history exists DTap / Tdap / Td (2 - Td or Tdap) 12/23/2030 12/23/2020 Pneumococcal Vaccine Completed 02/20/2022, 09/23/2018, 01/01/2015 Shingrix-Zoster Vaccine Completed 05/23/2022, 03/05 RSV Adult > 60+ Yrs or Completed 01/16/2023 Hepatitis B Vaccines Aged Out No long er eligible based on patient's age to complete this topic RSV Ped < 20 months Aged Out No longe r eligible based on patient's age to complete this topic Care Teams Prem[employer] Concrete Batcher Relationship Specialty Start Date End Date Sivan Montgomery MD [address] [place] [address] [place] [address] PCP - General Family Medicine 12/07/20
--- OUTSIDE RECORDS SUMMARY | 2024-07-30 08:11 | XMS_ITS | Clinical Summary ---
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 Active atorvastatin (LIPITOR) 20 mg tablet Take 1 tablet (20 mg total) by mouth 1 (one) time each day. Active pen needle, diabetic 32 gauge x 5/32 needle USE 1 PEN NEEDLE ONCE DAILY NEEDED 3 Active cetirizine (ZyrTEC) 10 mg tablet Take 1 tablet (10 mg total) by mouth 1 (one) time each day. Active colchicine (COLCRYS) 0.6 mg tablet Take 1 tablet (0.6 mg total) by mouth 1 (one) time each day. Active EPINEPHrine (EPIPEN) 0.3 mg/0.3 mL injection USE DIRECTED FOR ANAPHYLAXIS THEN CALL 911 2 Active famotidine (PEPCID) 40 mg tablet Take 1 tablet (40 mg total) by mouth 2 (two) times a day. Active fluticasone propionate (FLONASE) 50 mcg/actuation nasal spray Administer 1 spray into each nostril 1 (one) time each day. Active hydroCHLOROthi azide (MICROZIDE) 12.5 mg capsule Take 1 capsule (12.5 mg total) by mouth 1 (one) time each day. Active insulin glargine (Lantus Solostar U-100 Insulin) 100 unit/mL (3 mL) injection pen Inject 12 Units under the skin at bedtime. Active levothyroxine (SYNTHROID, LEVOTHROID) 125 mcg tablet Take 1 tablet (125 mcg total) by mouth. every morning on an empty stomach. Active metoprolol succinate (TOPROL-XL) 25 mg 24 hr tablet Take 1 tablet (25 mg total) by mouth 1 (one) time each day. 3 Active nitroglycerin (NITROSTAT) 0.[address] 1 tablet (0.4 mg total) under the tongue every 5 (five) minutes as needed for chest pain. Active SUMAtriptan (IMITREX) 100 mg tablet TAKE 1 TABLET BY MOUTH NEEDED FOR MIGRAINE HEADACHE 3 Active cyanocobalamin (VITAMIN B-12) 1,000 mcg tablet Take 1 tablet (1,000 mcg total) by mouth 1 (one) time each day. 1 Active cholecalcifero l (VITAMIN D-3) 10 mcg (400 unit) tablet Take 1 tablet (400 Units total) by mouth 1 (one) time each day. Active azithromycin (ZITHROMAX) 250 mg tablet TAKE 2 TABLETS ONE HOUR BEFORE ANY DENTAL WORK 4 Active HYDROcodone-ac etaminophen (VICODIN) 5-300 mg per tablet TAKE 1 TABLET BY MOUTH EVERY 12 HOURS NEEDED FOR PAIN *E* 4 Active loperamide (IMODIUM) 2 mg capsule Take 1 capsule (2 mg total) by mouth once daily as needed. 7 Active magnesium 200 mg tablet Take 200 mg by mouth daily. Active olopatadine (PATANOL) 0.1 % ophthalmic solution Administer 1 drop into affected eye(s) 2 times daily. 1 Active riboflavin (VITAMIN B2) 400 mg tablet Take 1 tablet (400 mg total) by mouth 2 (two) times a day. 30 tablet 3 4 Active magnesium oxide (MAG-OX) 400 mg magnesium tablet Take 1 tablet (400 mg total) by mouth 1 (one) time each day. 30 tablet 2 4 Active cyclobenzaprin e (FLEXERIL) 5 mg tablet Take 1 tablet (5 mg total) by mouth 3 times daily as needed. 7 Active rizatriptan (MAXALT) 10 mg tablet Take 1 tablet (10 mg total) by mouth 1 (one) time if needed for migraine (may repeat x1). May repeat in 2 hours if unresolved. Do not exceed 30 mg in 24 hours. 9 tablet 1 5 07/05/19 26 Active baclofen (LIORESAL) 10 mg tablet Take 1 tablet (10 mg total) by mouth 3 (three) times a day. 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) from Last 3 Months Immunizations Name Administration Dates Next Due Plovgh SARS-CoV-2 COVID-19, mRNA, LNP-S, preservative free 07/26/2021,07/06/2020,06/10/2020 Surgical History Surgery Date Site/Laterality Comments ANKLE FRACTURE SURGERY PROCEDURE:ANKLE FRACTURE SURGERY TOTAL HIP ARTHROPLASTY PROCEDURE:TOTAL HIP ARTHROPLASTY STEREOTACTIC CORE BIOPSY Right unsure of year BREAST CYST ASPIRATION Bilateral right 2020 Medical History Medical History Date Comments Diabetes mellitus (CMS/HCC V 24, CMS/HCC V28) DX:Diabetes mellitus (HCC) FMF (familial Mediterranean fever) (CMS/HCC V24, CMS/HCC V28) DX:FMF (familial Mediterran lakesha fever) (HCC) Fibromyalgia, primary DX:Fibromy algia, primary Myofascial pain DX:Myofascial pa in Restless leg syndrome DX:Restles s leg syndrome Thyroid disease DX:Thyroid disea se Hypothyroidism DX:Hypothyroidis m IBS (irritable bowel syndrome) D X:IBS (irritable bowel syndrome) GERD (gastroesophageal reflux disease) DX:GERD (gastroesophageal reflux disease) Hypertension DX:Hypertension Migraine DX:Migraine High cholesterol DX:High cholest joselyn Asthma DX:Asthma Osteoarthritis DX:Osteoarthriti s Sciatica DX:Sciatica TMJ (dislocation of temporom andibular joint) DX:TMJ (dislocation of tempo romandibular joint) Vertigo DX:Vertigo Sleep apnea DX:Sleep apnea Oxygen deficiency DX:Oxygen defi ciency Cystic breast DX:Cystic breast HL (hearing loss) DX:HL (hearing loss) Liver cirrhosis (CMS/HCC V24 , CMS/HCC V28) DX:Liver cirrhosis (HCC) Family History Medical History Relation Name Comments [...] drink = 0.6 oz pur e alcohol) Comments No Sex and Gender Information Value Date Recorded Sex Assigned at Not on file Legal Sex Female 2:20 PM EST Gender Identity Not on file Sexual Orientation Not on file Obstetrics History Last Filed Vital Signs Vital Sign Reading Time Taken Comments Blood Pressure 143/77 07/02/2024 8:49 AM EDT Pulse 92 07/02/2024 8:49 AM EDT Temperature 35.9 ??C (96.7 ??F) 07/02/2024 8:49 AM ED T Respiratory Rate - - Oxygen Saturation 97% 07/02/2024 8:49 AM EDT Inhaled Oxygen Concentration - - Weight 71.7 kg (158 lb) 07/02/2024 8:49 AM EDT Height 154.9 cm (5' 1 ) 07/02/2024 8:49 AM EDT Body Mass Index 29.85 07/02/2024 8:49 AM EDT Plan of Treatment Upcoming Encounters Date Type Department Care Team (Late st Contact Info) Description 01/07/2025 8:00 AM EDT Office Visit [facility] [address] [place] [address] Sung Jane MD [address] [place] [address] Health Maintenance Due Date Last Done Comments Diabetes: Annual Foot Exam 1962 Diabetes: Annual Retina Eye Exam 1962 Hepatitis A Vaccines (1 of 2 - Risk 2-dose series) 06/27/1971 Colorectal Cancer Screening: Colonoscopy 03/15/2022 Depression Screening 03/15/2022 Falls Risk Assessment 03/15/2022 Hepatitis C Screening 03/15/2022 Medicare Annual Wellness Visit 03/15/2022 Social Influencers of Health Screening 03/15/2022 Diabetes: Annual Urine Albumin-Creatinine Ratio (uACR) 03/21/2024 03/21/2023, 03/21/2023, 02/28/2022, Additional history exists Hepatitis B Vaccines (2 of 3 - Risk 3-dose series) 06/18/2024 05/21/2024 Diabetes: Blood Sugar Control Test (HGBA1C) 11/06/2024 05/09/2024, 06/15/2023 Influenza Vaccine (Season Ended) 2024 01/16/2023, 01/31/2022, 01/08/2021, Additional history exists Diabetes: Annual GFR (Glomerular Filtration Rate) 02/19/2025 02/20/2024, 01/14/2024, 10/01/2023, Additional history exists Hypertension/CHF/CAD Annual BMP Blood Test 02/19/2025 02/20/2024, 01/14/2024, 10/01/2023, Additional history exists Breast Cancer Screening 04/07/2026 04/07/20 24, 04/05/2023, 03/29/2022, Additional history exists Cholesterol Screening (Lipid Panel) 01/13/2029 01/14/2024, 11/20/2022 DTaP,Tdap,and Td Vaccines (2 - Td or Tdap) 12/23/2030 12/23/2020 Osteoporosis Screening (Bone Density Screening) 05/17/2033 05/17/2023 Pneumococcal Vaccine: 50+ Years Completed 02/20/2022, 09/23/2018, 01/01/2015 Zoster Vaccines Completed 05/23/2022, 03/05/2022 RSV Immunization Adult Patients Completed 01/16/2023 COVID-19 Vaccine Completed 01/08/2024, , 01/25/2022, Additional history exists HIB Vaccines Aged Out No longer eligi ble based on patient's age to complete this topic HPV Vaccines Aged Out No longer eligi ble based on patient's age to complete this topic IPV Vaccines Aged Out No longer eligi ble based on patient's age to complete this topic MMR Vaccines Aged Out No longer eligi ble based on patient's age to complete this topic Meningococcal ACWY Vaccine Aged Out N o longer eligible based on patient's age to complete this topic Meningococcal B Vaccine Aged Out No l onger eligible based on patient's age to complete this topic RSV Immunization Patients Under 20 months Aged Out No longer eligible based on patient's age to complete this topic Varicella Vaccines Aged Out No longer eligible based on patient's age to complete this topic Procedures Procedure Name Priority Date/Time Associated Diagnosis Comments EXTERNAL MRI REPORT 05/28/2024 MG MAMMO DIGITAL SCREENING W PHANI BILAT Routine 04/07/2024 8:36 AM EST Visit for screening mammogram ANNUAL BMP BLOOD TEST Routine 08/22/2023 HEMOGLOBIN A1C Routine 06/15/2023 [facility] DEXA AXIAL SKELETON Routine 05/17/2023 9:32 AM EST Other specified disorders of bone density and structure, left thigh URINE ALBUMIN CREATININE RATIO Routine 03/21/2023 LIPID PANEL Routine 11/20/2022 from Last 3 Months or Most Recently Relevant to Health Maintenance Results * External MRI Report (05/28/2024) Anatomical Region Laterality Modality Magnetic Resonan ce us Provider [facility] MRI PROCEDURES Final Result * MG Mammo Digital Screening w Phani bilat (04/07/2024 8:36 AM EST) Anatomical Region Laterality Modality Breast Bilateral Mammography 04/07/2024 5:09 PM EST Impressions 04/07/2024 5:17 PM EST No mammographic evidence of malignancy. ?? No suspicious interval change. A negative mammogram in the presence of a clinically suspicious palpable abnormality does not preclude the possibility of malignancy or alter the indications for biopsy. ASSESSMENT: ?? BI-RADS 1: NEGATIVE RECOMMENDATION(S): 1: Routine screening mammogram BILATERAL in 1 year. -------- FINAL REPORT -------- Dictated By: Juan Daniel Castro Dictated Date: 04/07/2024 17:09 ET Assigned Physician: Juan Daniel Castro Reviewed and Electronically Signed By: Juan Daniel Castro Signed Date: 04/07/2024 17:17 ET Workstation ID: [id number] Transcribed By: Self Edit Transcribed Date: 04/07/2024 17:09 ET Narrative 04/07/2024 5:17 PM EST EXAM: ??SCREENING MAMMOGRAPHY, BILATERAL HISTORY: ??SCREENING. ??Surgical removal of benign tumor 11 o'clock position right breast COMPARISON: ??04/05/2023, 03/29/2022, 09/20/2020 TECHNIQUE: Synthesized CC and MLO projections of each breast. ??Tomosynthesis of each breast in the CC and MLO projections. ADDITIONAL IMAGING: None Computer-aided detection was employed with the iCAD ??profound AI 3-D. TISSUE DENSITY: The breasts are heterogeneously dense, which may obscure small masses. (BI-RADS category C) FINDINGS: RIGHT BREAST: No suspicious mass. No suspicious calcification. No distortion. ??No suspicious change in the region of a biopsy site marker upper outer right breast. ?No additional suspicious right breast findings LEFT BREAST: No suspicious mass. No suspicious calcification. No distortion. ?? No additional suspicious left breast findings Procedure Note Juan Daniel Castro MD - 04/07/2024 EXAM: SCREENING MAMMOGRAPHY, BILATERAL HISTORY: SCREENING. Surgical removal of benign tumor 11 o'clock positionright breast COMPARISON: 04/05/2023, 03/29/2022, 09/20/2020 TECHNIQUE: Synthesized CC and MLO projections of each breast.Tomosynthesis of each breast in the CC and MLO projections. ADDITIONAL IMAGING: None Computer-aided detection was employed with the iCAD profound AI 3-D. TISSUE DENSITY: The breasts are heterogeneously dense, which may obscuresmall masses. (BI-RADS category C) FINDINGS: RIGHT BREAST: No suspicious mass. No suspicious calcification. No distortion. Nosuspicious change in the region of a biopsy site marker upper outer rightbreast. No additional suspicious right breast findings LEFT BREAST: No suspicious mass. No suspicious calcification. No distortion. Noadditional suspicious left breast findings IMPRESSION: No mammographic evidence of malignancy. No suspicious interval change. A negative mammogram in the presence of a clinically suspicious palpableabnormality does not preclude the possibility of malignancy or alter theindications for biopsy. ASSESSMENT: BI-RADS 1: NEGATIVE RECOMMENDATION(S): 1: Routine screening mammogram BILATERAL in 1 year. -------- FINAL REPORT -------- Dictated By: JuanD aniel Castro Dictated Date: 04/07/2024 17:09 ET Assigned Physician: Juan Daniel Castro Reviewed and Electronically Signed By: Juan Daniel Castro Signed Date: 04/07/2024 17:17 ET Workstation ID: [id number] Transcribed By: Self Edit Transcribed Date: 04/07/2024 17:09 ET Kathleen Lopez MD IMG BI PROCEDURES Final Result * Annual BMP Blood Test (08/22/2023) Pathologist [facility] Annual BMP Blood Test Abstracted Historical Provider HEALTH MAINTENANCE Final Result * Hemoglobin A1c (06/15/2023) Hemoglobin A1C 0.0 % Comment:no interpretation Blood Venous blood specimen / Unknown Historical Provider LAB BLOOD ORDERABLES Charmaine l Result * L[facility] DEXA AXIAL SKELETON (05/17/2023 9:32 AM EST) Anatomical Region Laterality Modality Mammography 05/17/2023 8:57 AM EST Narrative 05/17/2023 9:32 AM EST [facility] Diagnostic Imaging Department [address] [place] [address] Patient: ??MERON RDZ ?/Age/Sex: 1950 72 - F Unit#: ??[id number] ? Location/Status: ??SPDIMAM/REG CLI ? Mnemonic/Ordering Site: ??MAMDEXAAX/SPMAM Ordering Physician: ??ALMA DELIA CASTRO MD [facility] Dexa Axial Skeleton - 05/17/23917 Report Status:Signed HISTORY: ??The patient is a 72-year-old postmenopausal female with clinical concern for metabolic bone disease. FINDINGS: ??Dual energy x-ray absorptiometry of the lumbar spine and femurs is performed. The mean bone mineral density at L1-L4 (with the exclusion of L2) is 1.296 gm/cm2 which is 111% of that of young normals and 130% of that of age matched controls. This yields a T-score of 1.0 and a Z-score of 2.5 and there is therefore no evidence of osteoporosis or osteopenia here. The mean bone mineral density of the femurs bilaterally is 0.956 gm/cm2 which is 95% of that of young normals and 114% of that of age matched controls. ??This yields a T-score of -0.4 and a Z-score of 0.9 and there is therefore no evidence of osteoporosis or osteopenia here. However, the T-score of the left femoral neck is -1.4 which is diagnostic of osteopenia. IMPRESSION: 1. Osteopenia. 2. FRAX analysis yields a 10-year probability of major osteoporotic fracture of 21.1% and a 10-year probability of hip fracture of 3.5%. Code 52314 Dictating Physician: ??MELISSA RICHARDSON MD Electronically Signed by: ??MELISSA RICHARDSON MD Dic Date/Time: ??05/17/23929 Sign date/Time: ??05/17/23931 Procedure Note Melissa Richardson MD - 12/03/2023 [facility] Diagnostic Imaging Department [address] [place] [address] Patient: KAJALMERON D.O.B./Age/Sex: 1950 - 72 -F Unit#: [id number] [facility] Mnemonic/Ordering Site: [facility] Ordering Physician: ALMA DELIA CASTRO MD [facility] Dexa Axial Skeleton - 05/17/23917 Report Status:Signed HISTORY: The patient is a 72-year-old postmenopausal female withclinical concern for metabolic bone disease. FINDINGS: Dual energy x-ray absorptiometry of the lumbar spine and femursis performed. The mean bone mineral density at L1-L4 (with the exclusion ofL2) is 1.296 gm/cm2 which is 111% of that of young normals and 130% of that ofage matched controls. This yields a T-score of 1.0 and a Z-score of 2.5 andthere is therefore no evidence of osteoporosis or osteopenia here. The mean bone mineral density of the femurs bilaterally is 0.956 gm/cg7hysrw is 95% of that of young normals and 114% of that of age matched controls.This yields a T-score of -0.4 and a Z-score of 0.9 and there is therefore noevidence of osteoporosis or osteopenia here. However, the T-score of the leftfemoral neck is -1.4 which is diagnostic of osteopenia. IMPRESSION: 1. Osteopenia. 2. FRAX analysis yields a 10-year probability of major osteoporoticfracture of 21.1% and a 10-year probability of hip fracture of 3.5%. Code 64346 Dictating Physician: MELISSA RICHARDSON MD Electronically Signed by: MELISSA RICHARDSON MD Dic Date/Time: 05/17/23929 Sign date/Time: 05/17/23931 Alma Delia Castro MD IMG BI PROCEDURES Final Re sult * Urine Albumin Creatinine Ratio (03/21/2023) Pathologist [facility] Urine Albumin Creatinine Ratio Abstracted Historical Provider HEALTH MAINTENANCE Final Result * Lipid panel (11/20/2022) LDL/HDL Ratio 0 Comment:no interpretation Triglycerides 0 mg/dL Comment:no interpretation Cholesterol 0 mg/dL Comment:no interpretation HDL 0 mg/dL Comment:no interpretation LDL Cholesterol 0 mg/dL Comment:no interpretation Blood Venous blood specimen / Unknown Historical Provider LAB BLOOD ORDERABLES Charmaine l Result from Last 3 Months or Most Recently Relevant to Health Maintenance Insurance [employer] 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
--- NOTE | 2024-07-30 08:20 | A.OFFVIS_ITS ---
Vital Signs 07/30/24 08:23 Height 5 ft 2 in Weight 158 lb BMI 28.9 Intake Visit Reasons: Bilateral sacroiliitis Intake Note: Meron is a 74 year old female who presents with complaints of bilateral SI joint pain . She describes her pains as sharp in nature. At this point her left SI joint pain is worse than her right. She states that she has had cortisone injections given into her SI joints in the past at another facility. She would like to be treated here at [facility] instead. She has tried Tylenol and Celebrex which gave her mild relief. She does walk with a cane because of her pain. She was seen in our neurosurgery department. No surgery was recommended. Allergies ampicillin Allergy (Intermediate, Verified 07/30/24 08:22) swelling Clindamycin HCl Allergy (Intermediate, Verified 07/30/24 08:22) itching Penicillins Allergy (Intermediate, Verified 07/30/24 08:22) rash/itching/swelling Sulfa (Sulfonamide Antibiotics) Allergy (Intermediate, Verified 07/30/24 08:22) redness/fever tetracycline Allergy (Intermediate, Verified 07/30/24 08:22) SOB cephalexin [Keflex] Allergy (Unknown, Verified 07/30/24 08:22) reaction unknown, long time ago oxaprozin [Daypro] Allergy (Unknown, Verified 07/30/24 08:22) reaction unknown, long time ago Medication List - Last Reconciled 07/30/24 by Archie Ramos MD albuterol sulfate 90 mcg/actuation 1 inh inhalation Q4H PRN atorvastatin 20 mg PO BEDTIME baclofen 10 mg PO TID blood sugar diagnostic (OneTouch Verio test strips) As directed cetirizine 10 mg PO BEDTIME cholecalciferol (vitamin D3) (Vitamin D3) 50 mcg PO QAM colchicine 0.3 mg PO QAM CPAP (CPAP Machine/Device) As directed epinephrine 0.3 mg IM ONCE PRN famotidine 40 mg PO BID fluticasone propionate 50 mcg/actuation 1 spray intranasal DAILY hydrochlorothiazide 12.5 mg PO QAM ibuprofen (Advil) 600 mg PO BID insulin glargine (Lantus Solostar U-100 Insulin) 24 units subcut BEDTIME levothyroxine 125 mcg PO QAM loperamide 2 mg PO Q4H PRN magnesium 200 mg PO QAM metoprolol succinate ER 25 mg PO QAM nitroglycerin 0.3 mg sublingual ONCE PRN Oxygen Home Use As directed pen needle, diabetic (BD Sun 2nd Gen Pen Needle) As directed potassium chloride ER 10 mEq PO QAM sumatriptan succinate 100 mg PO DAILY PRN turmeric mg PO PFSH Medical History Arthritis of right hip Scoliosis PONV (postoperative nausea and vomiting) Skin cancer Arthritis Cirrhosis Asthma Restless legs syndrome (RLS) GERD (gastroesophageal reflux disease) TMJ (dislocation of temporomandibular joint) Obstructive sleep apnea Diabetes Hypothyroidism Fibromyalgia Mediterranean fever IBS (irritable bowel syndrome) COPD (chronic obstructive pulmonary disease) Chronic fatigue HTN (hypertension) Surgical History History of esophagogastroduodenoscopy (EGD) H/O colonoscopy Hx of hysterectomy Hx of cardiac catheterization Hx of dilation and curettage S/P insertion of spinal cord stimulator H/O abdominal surgery H/O breast surgery Hx of shoulder replacement Hx of cervical spine surgery Family History Sister Arthritis Father Clot Other Muscular dystrophy Social History Household Members: None Housing: Apartment Are you a primary rn transitional care to a significant other at home: No Do you presently have visiting nurse or other home services: Yes (corporate legal intern three times a week) Alcohol intake: never Patient Tobacco Use Status: Never used Tobacco service: No Current occupational status: disabled Physical Exam Vital Signs: BMI result Body Mass Index 28.9 Const Other: Well-nourished well-developed very friendly female awake alert and oriented x3 in no acute distress Back/Spine/Pelvis Other: Low back examination shows tenderness over her bilateral sacroiliac joints, no overlying skin lesions Assessment & Plan Assessment & Plan (1) Bilateral sacroiliitis: Code(s): M46.1 - Sacroiliitis, not elsewhere classified Category: Medical Plan Meron presents with bilateral sacroiliitis. The patient has had cortisone injections in the past which gave her very good relief. She does not wish to go back to that provider. Thus, I will have her evaluated in our pain management department here at [facility] to see if she is a candidate for repeat injections. She will follow up with me on an as-needed basis. Feel free to call me at any time should questions regarding her orthopedic management arise. I spent 20 minutes in reviewing the patient's records and imaging studies, seeing the patient and documenting in the medical record. Orders: Referrals Pain Management Referral M46.1 - Sacroiliitis, not elsewhere classified Coding Level of Care Code Est Pt Level 3 (73899) Complex EM visit Add On G2211 Diagnoses Bilateral sacroiliitis M46.1
[2024-07-30 08:23] VITALS: BMI 28.9
== END 2024-07-30 08:33 | disposition home or self-care (01) ==
LOC: HO.HOS 08:08
PROVIDERS: PCP Family Medicine; Visit Provider Orthopaedic Surgery
DX: M46.1 Sacroiliitis, not elsewhere classified (principal)
CPT/HCPCS: 99213

== ENCOUNTER → 2024-07-30 08:08 | Outpatient (BNVA) | payer MEDICARE, SELFPAY | PROVIDERS: PCP Family Medicine; Visit Provider Orthopaedic Surgery | DX: M46.1 Sacroiliitis, not elsewhere classified (principal) | CPT/HCPCS: 99212 ==

== ENCOUNTER 2024-11-20 15:14 | Inpatient (IN) | payer MEDICARE, OTHER, SELFPAY ==
--- NOTE | ~2024-11-20 | CT_ITS ---
CLINICAL HISTORY: abd pain, nausea, vomiting CT Abdomen and Pelvis W Contrast COMPARISON: DX/SR - XR HIP RT MIN 2V - 01/30/24 08:14 EDT FINDINGS: Detail limited by artifacts. Small hiatal hernia. Normal liver. Normal spleen. Patchy wedge-shaped areas of hypoenhancement at the periphery of the right renal cortex. Subcentimeter hypodensities in the left kidney, too small to accurately characterize. No hydronephrosis. Normal adrenal glands. Normal pancreas. No visible cholelithiasis. No biliary dilation. No evidence of bowel obstruction. Mild thickening of the banks of the distal transverse and the descending colon. No pneumatosis. The appendix is not identified, however, no secondary signs of acute appendicitis. Unremarkable bladder. Status post hysterectomy. No ascites. No pneumoperitoneum. No lymphadenopathy. No acute fracture. Status post right hip arthroplasty. Degenerative changes in the spine. Lumbar levoscoliosis. No abdominal aortic aneurysm. Atherosclerosis. Neurostimulator device in place with electrodes in the thoracic spinal canal. IMPRESSION: Patchy right renal cortical hypoenhancement, which could be due to renal infarctions or pyelonephritis. Colonic wall thickening, which could be due to underdistention or colitis. Nonemergent/incidental findings above. This document has been electronically signed by: Wilmer Fontanez MD on 11/20/2024 23:40:09
--- NOTE | ~2024-11-20 | US_ITS ---
US RENAL WITH DOPPLER HISTORY: Possible right renal cortex infarction. COMPARISON: None. Correlation made with CT abdomen and pelvis 11/20/2024. RENAL MEASUREMENTS: Right: 1.4 x 5.1 x 5.5 cm (Sag x AP x TV); normal sonographic appearance. Left: 11.4 x 5.2 x 5.1 cm (Sag x AP x TV); there is a mid pole simple cyst measuring 8 x 6 x 7 mm. Otherwise normal sonographic appearance. No hydronephrosis. Normal cortical echogenicity and thickness. No suspicious masses. Spectral Doppler analysis: Right Kidney: -Peak systolic velocity in the proximal right renal artery = 129 cm/s. Normal waveforms. -Peak systolic velocity in the mid right renal artery = 118 cm/s. Normal waveforms. -Peak systolic velocity in the distal right renal artery = 53 cm/s. Normal waveforms. -Patent right renal vein. -Upper pole interlobar artery resistive index of 0.77. -Midpole interlobar artery resistive index of 0.72. -Lower pole interlobar artery resistive index of 0.63. RAR right = (cannot be calculated as aorta peak systolic velocity is greater than 100) Left Kidney: -Peak systolic velocity in the proximal left renal artery = 116 cm/s. Normal waveforms. -Peak systolic velocity in the mid left renal artery = 100 cm/s. Normal waveforms. -Peak systolic velocity in the distal left renal artery = 65.5 cm/s. Normal waveforms. -Patent left renal vein. -Upper pole interlobar artery resistive index of 0.70. -Mid pole interlobar artery resistive index of 0.73. -lower pole interlobar artery resistive index of 0.66. RAR left = (cannot be calculated as aorta peak systolic velocity is greater than 100) Aorta: -Peak systolic velocity = 155 cm/s. US/US renal doppler IMPRESSION: 1. No evidence of renal artery stenosis or abnormal waveforms bilaterally on color/spectral Doppler examination (based on peak systolic velocities and resistive indices). 2. The RAR's could not be calculated as the peak systolic velocity in the aorta is greater than 100. 3. Renal parenchyma is sonographically normal aside from a small subcentimeter left renal cysts. Electronically signed by: Vinay Black MD 11/21/2024 03:02 PM EDT
--- NOTE | 2024-11-20 15:24 | ECG_ITS ---
Test Reason : SYNCOPE Blood Pressure : */* mmHG Vent. Rate : 104 BPM Atrial Rate : 104 BPM P-R Int : 174 ms QRS Dur : 88 ms QT Int : 354 ms P-R-T Axes : 27 -11 3 degrees QTcB Int : 465 ms Sinus tachycardia Otherwise normal ECG When compared with ECG of 02-Sep-2002 11:34, Questionable change in QRS duration Referred By: Generic ED Physician Electronically Signed By: TEO LUNA
[2024-11-20 15:46] VITALS: BP 166/75; PULSE 110; RESP 16; TEMP 36.6; O2SAT 96; BMI 28.3
--- NOTE | 2024-11-20 15:46 | ED.GENADULT ---
HPI - General Adult General Chief complaint: Syncope Stated complaint: passed out Time Seen by Provider: 11/20/24 21:06 Source: patient Mode of arrival: ambulatory Limitations: no limitations History of Present Illness ED Provider: Dr. Sharon Elizalde HPI narrative: Patient comes to the emergency room complaining of a near syncopal episode. Patient states that earlier today, while she was exiting the [facility] and going up the stairs, patient had a near syncopal episode. Patient states that she started blacking out and her legs started feeling weak. Patient was able to sit down. Patient states that she was confused for a few minutes but did not pass out completely. Patient denies any chest pain, palpitations or shortness of breath. Patient reports that for the last 2-3 days she has not been feeling quite right. Patient states that she has been having a lot of abdominal pain, mostly on the right side. Complaining of few episodes of diarrhea, took loperamide which resolved the diarrhea. Patient has been feeling nauseous, no vomiting, some abdominal cramping. Patient states that sometimes she does feel dysuria when she starts urinating. Related Data Home Medications ?Medication ?Instructions ?Recorded ?Confirmed albuterol sulfate 90 mcg/actuation 1 inh inhalation Q4H PRN Shortness 12/27/21 07/30/24 aerosol inhaler Of Breath Or Wheezing atorvastatin 20 mg tablet 20 mg PO BEDTIME 12/27/21 07/30/24 baclofen 10 mg tablet 10 mg PO TID 12/27/21 07/30/24 blood sugar diagnostic (OneTouch #10 ea 12/27/21 07/30/24 Verio test strips) epinephrine 0.3 mg/0.3 mL 0.3 mg IM ONCE PRN Anaphylaxis 12/27/21 07/30/24 injection, auto-injector famotidine 40 mg tablet 40 mg PO BID 12/27/21 07/30/24 fluticasone propionate 50 1 spray intranasal DAILY 12/27/21 07/30/24 mcg/actuation nasal spray,suspension hydrochlorothiazide 12.5 mg tablet 12.5 mg PO QAM 12/27/21 07/30/24 levothyroxine 125 mcg tablet 125 mcg PO QAM 12/27/21 07/30/24 metoprolol succinate 25 mg 25 mg PO QAM 12/27/21 07/30/24 tablet,extended release 24 hr nitroglycerin 0.3 mg sublingual 0.3 mg sublingual ONCE PRN Acid 12/27/21 07/30/24 tablet Reflux pen needle, diabetic 32 gauge x #50 ea 12/27/21 07/30/24 (BD Sun 2nd Gen Pen Needle) sumatriptan succinate 100 mg tablet 100 mg PO DAILY PRN Migraine 12/27/21 07/30/24 Headache cetirizine 10 mg tablet 10 mg PO BEDTIME 06/18/23 07/30/24 cholecalciferol (vitamin D3) 50 50 mcg PO QAM 06/18/23 07/30/24 mcg (2,000 unit) capsule (Vitamin D3) colchicine 0.6 mg tablet 0.3 mg PO QAM 06/18/23 07/30/24 insulin glargine 100 unit/mL (3 24 unit subcut BEDTIME 06/18/23 07/30/24 mL) subcutaneous pen (Lantus Solostar U-100 Insulin) loperamide 2 mg capsule 2 mg PO Q4H PRN Loose Stool 06/18/23 07/30/24 magnesium 200 mg tablet 200 mg PO QAM 06/18/23 07/30/24 potassium chloride 10 mEq 10 meq PO QAM 06/18/23 07/30/24 tablet,extended release CPAP (CPAP Machine/Device) 11/01/23 07/30/24 Oxygen Home Use 11/01/23 07/30/24 ibuprofen 200 mg tablet (Advil) 600 mg PO BID 03/26/24 07/30/24 turmeric 400 mg capsule mg PO 03/26/24 07/30/24 Allergies Allergy/AdvReac Type Severity Reaction Status Date / Time ampicillin Allergy Intermediate swelling Verified 11/20/24 15:47 Clindamycin HCl Allergy Intermediate itching Verified 11/20/24 15:47 Penicillins Allergy Intermediate rash/itchin Verified 11/20/24 15:47 g/swelling Sulfa (Sulfonamide Allergy Intermediate redness/fev Verified 11/20/24 15:47 Antibiotics) er tetracycline Allergy Intermediate SOB Verified 11/20/24 15:47 cephalexin (Keflex) Allergy Unknown reaction Verified 11/20/24 15:47 unknown, long time ago oxaprozin (Daypro) Allergy Unknown reaction Verified 11/20/24 15:47 unknown, long time ago Review of Systems Review of Systems: Constitutional : No Weight loss, No Fever, No Chills, No Night Sweats, No Fatigue, No Malaise ENT/Mouth : No Hearing loss, No Ear Pain, No Nasal Congestion, No Sinus Pain, No Hoarseness, No sore throat, No Rhinorrhea, No Swallowing Difficulty Eyes: No Eye Pain, No Swelling, No Redness, No Foreign Body, No Discharge, No Vision Changes Cardiovascular : No Chest Pain, No SOB, No Dyspnea on Exertion, No Orthopnea, No Edema, No Palpitations Respiratory : No Cough, No Sputum, No Wheezing, No Smoke Exposure, No Dyspnea Gastrointestinal : Complaining of nausea, no vomiting, couple episodes of diarrhea that resolved with loperamide, diffuse abdominal cramping Genitourinary : no irregular bleeding, No Dysuria, No Urinary Frequency, No Hematuria, No Urinary Incontinence, No Urgency, complaining of right-sided Flank Pain, No Urinary Flow Changes, No Hesitancy Musculoskeletal : No joint pain, No Myalgias, No Joint Swelling Skin : No Skin Lesions, No rash Neuro : No Weakness, No Numbness, No Paresthesias, complaining of a near syncopal episodes No Dizziness, No Headache Psych : No Anxiety/Panic, No Depression, No SI/HI/AH/VH, No Social Issues, Heme/Lymph: No Bruising, No Bleeding,No Lymphadenopathy Endocrine : No Polyuria, No Polydipsia, No Temperature Intolerance [facility] Past Medical History Medical History Arthritis of right hip Scoliosis PONV (postoperative nausea and vomiting) Skin cancer Arthritis Cirrhosis Asthma Restless legs syndrome (RLS) GERD (gastroesophageal reflux disease) TMJ (dislocation of temporomandibular joint) Obstructive sleep apnea Diabetes Hypothyroidism Fibromyalgia Mediterranean fever IBS (irritable bowel syndrome) COPD (chronic obstructive pulmonary disease) Chronic fatigue HTN (hypertension) Surgical History History of esophagogastroduodenoscopy (EGD) H/O colonoscopy Hx of hysterectomy Hx of cardiac catheterization Hx of dilation and curettage S/P insertion of spinal cord stimulator H/O abdominal surgery H/O breast surgery Hx of shoulder replacement Hx of cervical spine surgery Family History Family History Sister Arthritis Father Clot Other Muscular dystrophy Social History Social History Household Members: None Housing: Apartment Are you a primary child care leader to a significant other at home: No Do you presently have visiting nurse or other home services: Yes (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 Oriented X3. No acute distress. With a. Eyes: Pupils equal, round and reactive to light. ENT: Pharynx normal. Neck: Normal inspection. Neck supple. No lymph nodes noted. No crepitus CVS: Normal heart rate and rhythm. Pulses normal. Normal S1 and S2 Respiratory: No respiratory distress. Breath sounds normal. No Wheezing. No rales Abdomen: Soft, diffuse pain to palpation in all quadrants, cramping,. No rigidity. No distention. Mild CVA tenderness in the right Skin: Skin warm and dry. Normal skin color. Normal skin turgor. Extremities: No lower extremity edema. No Lacerations. No Rash Neuro: Oriented X 3. No motor deficit. No sensory deficit. Moving all extremities. No slurred speech. CN 2 through 12 grossly intact Psych: calm, cooperative, normal affect Vital Signs: Vital Signs - 24 hr 11/20/24 15:46 11/20/24 20:48 11/20/24 21:33 Temperature 97.8 F 97.8 F Pulse Rate 110 H 95 100 Respiratory Rate 16 22 H Blood Pressure 166/75 H 125/68 160/77 H Pulse Oximetry 96 97 Oxygen Delivery Method Room Air Room Air 11/20/24 21:34 11/20/24 21:35 11/20/24 22:49 Temperature 98.1 F Pulse Rate 102 H 110 H 102 H Respiratory Rate 12 Blood Pressure 154/73 H 163/78 H 143/61 H Pulse Oximetry 97 Oxygen Delivery Method Room Air 11/21/24 00:26 Temperature Pulse Rate 103 H Respiratory Rate 18 Blood Pressure 153/78 H Pulse Oximetry 94 Oxygen Delivery Method Room Air BMI result Body Mass Index 28.3 Course Course Course Narrative: This is a rapid medical exam performed by Hilary Russell NP: Additional HPI, ROS, PE not included below will be deferred to primary provider. Patient is a 74-year-old female with history of BLAIR, cirrhosis, GERD, DM, hypothyroidism, fibromyalgia, COPD, IBS, HTN presenting to the ED with complaint of syncopal episode. States she was getting off the [employer] van and passed out, was able to quickly sit down on the van stairs. 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 Reports recent nausea, decreased appetite. Has had some diarrhea and reports GERD has been worse than normal. Plan: EKG, labs Medications Administered Discontinued Medications Generic Name Dose Route Start Last Admin Trade Name Freq PRN Reason Stop Dose Admin Dicyclomine HCl 10 mg 11/20/24 21:27 11/20/24 22:16 Dicyclomine Hcl 10 Mg Capsule PO 11/20/24 21:28 10 mg ONCE ONE Administration Sodium Chloride 1,000 mls @ 999 mls/hr 11/20/24 20:15 11/21/24 00:21 Ns IV 11/20/24 21:15 Infused .Q1H1M FLAKO Infusion Potassium Chloride 10 meq in 100 mls @ 100 mls/hr 11/20/24 20:15 11/20/24 22:16 Potassium Chloride/H20 IV 11/20/24 22:14 Not Given Q1H FLAKO Sodium Chloride 1,000 mls @ 999 mls/hr 11/20/24 21:34 11/21/24 00:21 Ns IVCONT 11/20/24 22:34 Infused .Q1H1M ONE Infusion Iohexol 85 ml 11/20/24 22:54 11/20/24 22:55 Iohexol 350 Mg/Ml 100 Ml Infus..Btl IV 11/20/24 22:55 85 ml ONCE ONE Administration Ketorolac Tromethamine 30 mg 11/21/24 00:26 11/21/24 00:46 Ketorolac Tromethamine 30 Mg/Ml Vial IVPUSH 11/21/24 00:27 30 mg ONCE ONE Administration Ondansetron HCl 4 mg 11/20/24 21:27 11/20/24 22:16 Ondansetron Hcl 4 Mg/2 Ml Vial IVPUSH 11/20/24 21:28 4 mg ONCE ONE Administration Potassium Chloride 40 meq 11/20/24 21:27 11/20/24 22:16 Potassium Chloride Packet 20 Meq Packet PO 11/20/24 21:28 40 meq ONCE ONE Administration Medical Decision Making Medical Decision Making [facility] Narrative: Patient declined IV potassium, patient receiving IV fluids, p.o. potassium, IV Zofran and Bentyl My interpretation of labs, patient's white blood cell count is 19.4, patient reports recent GI symptoms including abdominal pain. Patient's electrolytes shows a sodium of 132, potassium of 3.0. Normal creatinine. Normal INR, magnesium 2.1, normal lipase My interpretation of EKG: Sinus tachycardia, heart rate 104, no ST segment depression or elevation, no T-wave inversion, QTC 465 CT scan shows right kidney pyelonephritis versus renal infarct. Patient complaining of right-sided flank pain, patient was given a dose of ketorolac. Urinalysis is not impressive, does have leukocyte esterase. However, given patient's symptoms, we will treated as a UTI/pyelonephritis. Patient does not have a fever, no episodes of hypotension. Patient is not septic. I discussed the above-mentioned with the patient, patient agrees with the plan of being admitted Dr. Little agrees to admit the patient Differential Diagnosis Differential Diagnoses: The differential diagnosis associated with the presentation includes (Viral syndrome, gastritis, gastroenteritis, SBO, pyelonephritis, renal infarct) Admission/Observation Consideration of admission/observation: Escalation of care including admission/observation considered (Given patient's presentation, symptoms and age, observation was considered) Consult Healthcare Provider Management of the patient was discussed with: Hospitalist Lab Data [facility] Lab Attestation statement: I reviewed the patient's lab results. 11/20/24 16:39 11/20/24 16:39 Labs: Lab Results 11/20/24 11/20/24 11/21/24 Range/Units 15:40 16:39 00:25 WBC 19.4 H (4.8-10.8) X10*3/uL RBC 4.68 D (4.20-5.50) X10*6/uL Hgb 14.9 D (12.0-16.0) g/dl Hct 42.0 D (37.0-47.0) % MCV 89.7 (80.0-98.0) fL MCH 31.8 (27.0-33.0) pg MCHC 35.5 H (31.0-35.0) g/dl RDW 12.6 (11.0-16.0) % Plt Count 268 D (160-400) X10*3/uL MPV 10.3 (9.4-12.3) fL Immature Gran % (Auto) 0.5 H (0.0-0.4) % Neut % (Auto) 86.6 H (45-73) % Lymph % (Auto) 7.4 L (20-40) % Jenkins % (Auto) 5.1 (2-11) % Eos % (Auto) 0.1 (0-4) % Baso % (Auto) 0.3 (0-2) % Lymph # (Auto) 1.4 (1.2-4.9) X10*3/uL Jenkins # (Auto) 1.0 (0.1-1.2) X10*3/uL Eos # (Auto) 0.0 (0.0-0.4) X10*3/uL Baso # (Auto) 0.1 (0.0-0.2) X10*3/uL Abs Immat Gran (auto) 0.09 H (0.00-0.03) X10*3/uL Absolute Neuts (auto) 16.8 H (2.0-8.3) x10*3/uL Absolute Nucleated RBC 0.000 (0.0-0.012) X10*3/uL Nucleated RBC % (auto) 0.0 (0.0-0.2) /100WBC PT 11.9 (10.9-12.4) SEC INR 1.0 (0.9-1.1) Sodium 132 L (135-145) mmol/L Potassium 3.0 L D (3.3-5.1) mmol/L Chloride 95 L (96-108) mmol/L Carbon Dioxide 23 (22-29) mmol/L Anion Gap 17 (12-20) BUN 18 H (9-16) mg/dL Creatinine 0.88 (0.5-1.4) mg/dL Estim Creat Clear Calc 53.0 Estimated GFR > 60 POC Glucose 161 H (60-115) mg/dL Random Glucose 148 H (60-115) mg/dL Calcium 10.3 H D (8.4-10.2) mg/dL Magnesium 2.1 (1.6-2.6) mg/dL Total Bilirubin 0.7 (0.0-1.0) mg/dL AST 27 (5-31) U/L ALT 31 (0-31) U/L Alkaline Phosphatase 112 (39-117) U/L Total Protein 7.7 (6.5-8.0) g/dL Albumin 5.0 (3.5-5.0) g/dL Lipase 20 (8-78) U/L Urine Color Yellow Urine Appearance Clear Urine pH 7.0 (5.0-9.0) Ur Specific [place] 1.025 (1.005-1.025) Urine Protein Negative (Neg-Trace) mg/dL Urine Glucose (UA) Negative (Negative) mg/dL Urine Ketones Negative (Negative) mg/dL Urine Blood Negative (Negative) Urine Nitrite Negative (Negative) Ur Leukocyte Esterase Moderate (2+) H (Negative) Urine RBC 0-2 (0-2) /HPF Urine WBC 0-5 (0-5) /HPF Ur Squamous Epith Cells 0-2 (0-2) /HPF Urine Bacteria None Seen (None Seen) Hyaline Casts 0-2 (0-2) /LPF Independent Interpretation I performed an independent interpretation of an: CT Scan Radiology Impression Discussion of test interpretation with radiology: I have reviewed the radiologist's reading. Radiologist Impression: Detail limited by artifacts. Small hiatal hernia. Normal liver. Normal spleen. Patchy wedge-shaped areas of hypoenhancement at the periphery of the right renal cortex. Subcentimeter hypodensities in the left kidney, too small to accurately characterize. No hydronephrosis. Normal adrenal glands. Normal pancreas. No visible cholelithiasis. No biliary dilation. No evidence of bowel obstruction. Mild thickening of the banks of the distal transverse and the descending colon. No pneumatosis. The appendix is not identified, however, no secondary signs of acute appendicitis. Unremarkable bladder. Status post hysterectomy. No ascites. No pneumoperitoneum. No lymphadenopathy. No acute fracture. Status post right hip arthroplasty. Degenerative changes in the spine. Lumbar levoscoliosis. No abdominal aortic aneurysm. Atherosclerosis. Neurostimulator device in place with electrodes in the thoracic spinal canal. IMPRESSION: Patchy right renal cortical hypoenhancement, which could be due to renal infarctions or pyelonephritis. Colonic wall thickening, which could be due to underdistention or colitis. Nonemergent/incidental findings above. Critical Care Time Critical Care Time Critical Care Time: Yes Total Critical Care Time: 60 Attestation: I have personally provided critical care time. Time includes review of lab data, radiology results, discussion with consultants, and monitoring for potential decompensation. Intervention performed as documented. Discharge Plan Discharge Clinical Impression: Acute pyelonephritis, Near syncope, Acute hypokalemia Patient Disposition: Admitted As Inpatient Print Language: [place]an
[2024-11-20 16:06] LABS: Glucose, Whole Blood 161 mg/dL (60-115)
[2024-11-20 16:51] LABS: MANUAL DIFF FLAG NO
[2024-11-20 16:53] LABS: Hematocrit 42.0 % (37.0-47.0); Hemoglobin 14.9 g/dl (12.0-16.0); Imm Gran Abs Auto 0.09 X10*3/uL (0.00-0.03); Imm Gran Pct Auto 0.5 % (0.0-0.4); Lymphocytes Absolute Auto 1.4 X10*3/uL (1.2-4.9); Mean Corpuscular HGB Conc 35.5 g/dl (31.0-35.0); Mean Corpuscular Hemoglobin 31.8 pg (27.0-33.0); Mean Corpuscular Volume 89.7 fL (80.0-98.0); NRBC Abs Auto 0.000 X10*3/uL (0.0-0.012); NRBC Pct Auto 0.0 /100WBC (0.0-0.2); Platelet Count 268 X10*3/uL (160-400); Red Blood Count 4.68 X10*6/uL (4.20-5.50); White Blood Count 19.4 X10*3/uL (4.8-10.8)
[2024-11-20 16:59] LABS: INTERNATIONAL NORM RATIO 1.0 (0.9-1.1); Prothrombin Time 11.9 SEC (10.9-12.4)
[2024-11-20 17:08] LABS: Alanine Aminotransferase 31 U/L (0-31); Albumin Level 5.0 g/dL (3.5-5.0); Alkaline Phosphatase 112 U/L (39-117); Anion Gap 17 (12-20); Aspartate Amino Transferase 27 U/L (5-31); Blood Urea Nitrogen 18 mg/dL (9-16); Calcium 10.3 mg/dL (8.4-10.2); Carbon Dioxide 23 mmol/L (22-29); Chloride 95 mmol/L (96-108); Creatinine Clr Calc Pharmacy 53.0; Estimated Glomerular Filt Rate > 60; Lipase 20 U/L (8-78); Magnesium 2.1 mg/dL (1.6-2.6); Potassium 3.0 mmol/L (3.3-5.1); Sodium 132 mmol/L (135-145); Total Protein 7.7 g/dL (6.5-8.0)
[2024-11-20] MEDS: Potassium Chloride/H20 10 MEQ/100 ML PIGGYBACK 100 MEQ IV (20:32)
--- NOTE | 2024-11-20 20:44 | PC.NURSE ---
PATIENT UNABLE TO TOLERATE iv K REQUESTING TO HAVE INFUSION STOPPED
[2024-11-20 20:48] VITALS: BP 125/68; PULSE 95; RESP 22; TEMP 36.6; O2SAT 97
[2024-11-20 21:33] VITALS: BP 160/77; PULSE 100
[2024-11-20 21:34] VITALS: BP 154/73; PULSE 102
[2024-11-20 21:35] VITALS: BP 163/78; PULSE 110
[2024-11-20] MEDS: Potassium Chloride Packet 20 MEQ PACKET 40 MEQ PO (22:16)
[2024-11-20 22:49] VITALS: BP 143/61; PULSE 102; RESP 12; TEMP 36.7; O2SAT 97
[2024-11-20] MEDS: iohexoL 350 MG/ML 100 ML INFUS..BTL 85 ML IV (22:55)
[2024-11-21] VITALS (14 sets, daily range): BP systolic 119–170; BP diastolic 56–89; PULSE 88–117; RESP 15–20; TEMP 36.3–36.8; O2SAT 94–97; BMI 29.2; BMI 29.4
[2024-11-21 00:32] LABS: Appearance Urine Clear; Glucose Urine UA Negative (Negative); PH 7.0 (5.0-9.0); Specific Gravity - Urine 1.025 (1.005-1.025); UMIC TRIGGER UACC YES
[2024-11-21 00:38] LABS: UACC Culture Trigger YES
--- NOTE | 2024-11-21 01:08 | PM.IMHP ---
History of Present Illness Date of Service: 11/21/24 Attending physician on admission: Ivanna Little Chief Complaint: near syncopal event Patient is a 74-year-old female with past medical history COPD/asthma on home O2, hyperlipidemia, FMF (familial mediterranean fever), cirrhosis from being on colchicine, OA, urinary incontinence, GERD, small hiatal hernia, scoliosis and kyphosis, , IBS, hypothyroidism, hypertension, IDDM, allergic rhinitis, BLAIR on CPAP, and fibromyalgia/ chronic pain syndrome, degenerative joint disease lower back, presents to the emergency department after a near syncopal episode after getting out of the senior transportation van. Patient was able to sit before passing out completely. Pt was reports abdominal pain that spread across the lower abdomen. Patient currently denies any abdominal pain, nausea or vomiting. Patient has not had any fevers or chills as well. Patient reports recent diarrhea with nausea. Pt does have IBS- CD and will have episodes of noninfectious diarrhea intermittently. Workup in the emergency department included a CT of the abdomen and pelvis which noted a possible pyelonephritis versus right renal cortical infarction. Patient was treated for right flank pain as well as hypokalemia. Patient was also started on antibiotics and fluids. UA positive only for +2 leukocyte esterase otherwise negative for UTI. Patient did not present with evidence of sepsis. Patient is not currently on blood thinners. EKG notes sinus tachycardia with no evidence of ischemia. QTC 465. Pt reports that her father dies of a blood clot at age 41. Patient has been on disability for chronic pain issues and back problems. Patient is now with a point where she can barely walk at times. Patient does have a neurostimulator in the thoracic spine and is being followed by a specialist in the outpatient setting. Patient denies any loss of bowel or bladder control. Neuro exam reassuring. Patient recently restarted on Ozempic 4 weeks ago for diabetes management. Patient injects the medications on Sundays. Patient denies history of bowel obstruction or ileus. Patient does not use insulin. The Ozempic was ordered by her field technical specialist. There is evidence of colonic wall thickening which could indicate colitis versus under distention. As stated above patient does have history of IBS, C-D. Patient's abdominal pain is currently resolved. Review of Systems Review of Systems: Patient currently denies any chest pain, abdominal pain, nausea or vomiting. Patient is not short of breath at rest or with exertion. Patient does use oxygen at home at night and is on CPAP for her BLAIR. Patient lives with chronic pain secondary to her fibromyalgia and FMS and is not currently on narcotics. Patient at times has trouble walking due to her chronic disease process. Patient denies any recent falls or injury. Yes all other systems are reviewed and are negative [facility] Medical History Arthritis of right hip Scoliosis PONV (postoperative nausea and vomiting) Skin cancer Arthritis Cirrhosis Asthma Restless legs syndrome (RLS) GERD (gastroesophageal reflux disease) TMJ (dislocation of temporomandibular joint) Obstructive sleep apnea Diabetes Hypothyroidism Fibromyalgia Mediterranean fever IBS (irritable bowel syndrome) COPD (chronic obstructive pulmonary disease) Chronic fatigue HTN (hypertension) Cognitive capacity: Alert and orientated x3 Functional capacity: uses cane/walker Patient : No Family History Sister Arthritis Father Clot Other Muscular dystrophy Pertinent family history: Father at age 41 from blood clot Surgical History History of esophagogastroduodenoscopy (EGD) H/O colonoscopy Hx of hysterectomy Hx of cardiac catheterization Hx of dilation and curettage S/P insertion of spinal cord stimulator H/O abdominal surgery H/O breast surgery Hx of shoulder replacement Hx of cervical spine surgery Social History Household Members: None Housing: Apartment Are you a primary career center advisor to a significant other at home: No Do you presently have visiting nurse or other home services: Yes (brass molder helper three times a week) Alcohol intake: never Patient Tobacco Use Status: Never used Tobacco Smoked in Last 30 Days: No Use of substances other than those prescribed or required for medical reasons: No Advance Directives: Yes Advance Directives Information Provided: No Advance Directives on File: No Do you have a plan to hurt others: No Plan Patient : No service: No Current occupational status: disabled Ebola Risk: Travel/Contact With Anyone From Affected Area/s: No Has Patient Experienced Ebola Symptoms: No Meds Allergies Allergy/AdvReac Type Severity Reaction Status Date / Time ampicillin Allergy Intermediate swelling Verified 11/20/24 15:47 Clindamycin HCl Allergy Intermediate itching Verified 11/20/24 15:47 Penicillins Allergy Intermediate rash/itchin Verified 11/20/24 15:47 g/swelling Sulfa (Sulfonamide Allergy Intermediate redness/fev Verified 11/20/24 15:47 Antibiotics) er tetracycline Allergy Intermediate SOB Verified 11/20/24 15:47 cephalexin (Keflex) Allergy Unknown reaction Verified 11/20/24 15:47 unknown, long time ago oxaprozin (Daypro) Allergy Unknown reaction Verified 11/20/24 15:47 unknown, long time ago Active Medications: Current Medications Acetaminophen (Acetaminophen 325 Mg Tablet) 650 mg PO Q6H PRN PRN Reason: Pain, Mild 1-3,fever,headache Calcium Carbonate (Calcium Carbonate 750 Mg Tab.Chew) 750 mg PO Q4H PRN PRN Reason: Heartburn Levofloxacin (Levaquin) 500 mg in 100 mls @ 100 mls/hr IV ONCE ONE Stop: 11/21/24 01:41 Magnesium Hydroxide (Milk Of Magnesia 30 Ml Oral.Susp) 30 ml PO DAILY PRN PRN Reason: Constipation Melatonin (Melatonin 3 Mg Tablet) 6 mg PO BEDTIME PRN PRN Reason: Insomnia Sodium Chloride (0.9 % Sodium Chloride Flush 3 Ml Syringe) [facility] ?Medication ?Instructions ?Recorded ?Confirmed ?Last Taken ?Type albuterol sulfate 90 mcg/actuation 1 inh inhalation Q4H PRN Shortness 12/27/21 07/30/24 06/25/23 History aerosol inhaler Of Breath Or Wheezing atorvastatin 20 mg tablet 20 mg PO BEDTIME 12/27/21 07/30/24 06/24/23 History baclofen 10 mg tablet 10 mg PO TID 12/27/21 07/30/24 06/24/23 History blood sugar diagnostic (OneTouch #10 ea 12/27/21 07/30/24 Unknown History Verio test strips) epinephrine 0.3 mg/0.3 mL 0.3 mg IM ONCE PRN Anaphylaxis 12/27/21 07/30/24 Unknown History injection, auto-injector famotidine 40 mg tablet 40 mg PO BID 12/27/21 07/30/24 06/25/23 History fluticasone propionate 50 1 spray intranasal DAILY 12/27/21 07/30/24 06/24/23 History mcg/actuation nasal spray,suspension hydrochlorothiazide 12.5 mg tablet 12.5 mg PO QAM 12/27/21 07/30/24 06/23/23 History levothyroxine 125 mcg tablet 125 mcg PO QAM 12/27/21 07/30/24 06/25/23 History metoprolol succinate 25 mg 25 mg PO QAM 12/27/21 07/30/24 06/25/23 History tablet,extended release 24 hr nitroglycerin 0.3 mg sublingual 0.3 mg sublingual ONCE PRN Acid 12/27/21 07/30/24 Unknown History tablet Reflux pen needle, diabetic 32 gauge x #50 ea 12/27/21 07/30/24 Unknown History (BD Sun 2nd Gen Pen Needle) sumatriptan succinate 100 mg tablet 100 mg PO DAILY PRN Migraine 12/27/21 07/30/24 06/18/23 History Headache cetirizine 10 mg tablet 10 mg PO BEDTIME 06/18/23 07/30/24 06/24/23 History cholecalciferol (vitamin D3) 50 50 mcg PO QAM 06/18/23 07/30/24 06/24/23 History mcg (2,000 unit) capsule (Vitamin D3) colchicine 0.6 mg tablet 0.3 mg PO QAM 06/18/23 07/30/24 06/24/23 History insulin glargine 100 unit/mL (3 24 unit subcut BEDTIME 06/18/23 07/30/24 06/24/23 19:00 History mL) subcutaneous pen (Lantus 12 units Solostar U-100 Insulin) loperamide 2 mg capsule 2 mg PO Q4H PRN Loose Stool 06/18/23 07/30/24 Unknown History magnesium 200 mg tablet 200 mg PO QAM 06/18/23 07/30/24 06/18/23 History potassium chloride 10 mEq 10 meq PO QAM 06/18/23 07/30/24 06/18/23 History tablet,extended release CPAP (CPAP Machine/Device) 11/01/23 07/30/24 Unknown History Oxygen Home Use 11/01/23 07/30/24 Unknown History ibuprofen 200 mg tablet (Advil) 600 mg PO BID 03/26/24 07/30/24 Unknown History turmeric 400 mg capsule mg PO 03/26/24 07/30/24 Unknown History Physical Exam Vital Signs and Narrative: Vital Signs: Last Vital Signs Temp 98.1 F 11/20/24 22:49 Pulse 103 H 11/21/24 00:26 Resp 18 11/21/24 00:26 BP 153/78 H 11/21/24 00:26 Pulse Ox 94 11/21/24 00:26 O2 Del Method Room Air 11/21/24 00:26 BMI result Body Mass Index 28.3 Alert and orientated X3, able to give good history. Neuro: CN II-X11 intact, no deficits, visual acuity intact EYES: PERRLA, EOM intact, sclerae nonicteric, conjunctiva pink ENT: hearing intact, no issues with swallowing, uvula midline, lips moist, nares patent no epistaxis Cardiac: S1 S2 RRR, no murmur, no JVD, no edema in Lower ext Pulmonary: lungs clear to auscultation B Abdominal: BS active in all 4 quadrants, no guarding, tenderness, rebounding, no bruising in the retroperitoneal area MSK: strength 5/5 upper and lower extremities : no bladder distension no costovertebral tenderness bilaterally Extremities: no edema in lower extremities, PT and DP pulses palpable +2 Psych: mood stable, judgement and insight good :Skin intact Results Labs 11/20/24 16:39 11/20/24 16:39 Labs: Laboratory Results - last 24 hr 11/20/24 11/20/24 11/21/24 15:40 16:39 00:25 MCV 89.7 MCH 31.8 MCHC 35.5 H RDW 12.6 Plt Count 268 D MPV 10.3 Immature Gran % (Auto) 0.5 H Neut % (Auto) 86.6 H Lymph % (Auto) 7.4 L Scott % (Auto) 5.1 Eos % (Auto) 0.1 Baso % (Auto) 0.3 Lymph # (Auto) 1.4 Scott # (Auto) 1.0 Eos # (Auto) 0.0 Baso # (Auto) 0.1 Abs Immat Gran (auto) 0.09 H Absolute Neuts (auto) 16.8 H Absolute Nucleated RBC 0.000 Nucleated RBC % (auto) 0.0 PT 11.9 INR 1.0 Anion Gap 17 Estim Creat Clear Calc 53.0 Estimated GFR > 60 POC Glucose 161 H Random Glucose 148 H Calcium 10.3 H D Magnesium 2.1 Total Bilirubin 0.7 AST 27 ALT 31 Alkaline Phosphatase 112 Total Protein 7.7 Albumin 5.0 Lipase 20 Urine Color Yellow Urine Appearance Clear Urine pH 7.0 Ur Specific Osgood 1.025 Urine Protein Negative Urine Glucose (UA) Negative Urine Ketones Negative Urine Blood Negative Urine Nitrite Negative Ur Leukocyte Esterase Moderate (2+) H Urine RBC 0-2 Urine WBC 0-5 Ur Squamous Epith Cells 0-2 Urine Bacteria None Seen Hyaline Casts 0-2 ECG Attestation: I personally reviewed and interpreted this ECG as follows: (Sinus tachycardia 104, QTC 465 no ischemic changes) Prior ECG tracings: available for review Assessment and Plan (1) Near syncope: Status: Acute Plan Patient is a 74-year-old female with past medical history COPD on home O2, hyperlipidemia, , cirrhosis from colchicine, OA, 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 Patient was able to sit before passing out completely. Patient reports recent diarrhea with nausea. Incidentally CT scan noted possible pyelonephritis versus right renal cortex infarct. Patient being admitted for further evaluation. Near-syncope likely secondary to hypovolemia from dehydration and recent diarrhea IV fluids continue Orthostatics in the a.m. Telemetry EKG NSR Stool panel requested Hypokalemia Potassium supplementation ordered BMP in AM Telemetry Hyponatremia Sodium 132 0.9 normal saline at 100 per hour BMP in AM Pyelonephritis vs right renal cortex infarct via CT scan Renal function stable UA positive only for +2 leukocyte esterase otherwise negative Levofloxacin IV 500 mg Q24 started noting patient has multiple allergies Urine culture requested IV fluids initiated in the ED Patient does not meet criteria for sepsis at this time Renal ultrasound ordered - if neg, may need MRI (pt has neurostimulator in thoracic spine- instructions for MRI/ device in diagnositc reports 03/10/24)) Patient is not normally on anticoagulation, history of father passing age 41 from blood clot Lovenox weight based 70 mg administered x1 Hypertension Hydralazine p.r.n. for systolic greater than 160 Continue metoprolol once med rec completed Low-sodium diet IDDM Sliding scale insulin Diabetic diet Patient recently started on Ozempic 4 weeks ago and is no longer on insulin per her field technical specialist Fibromyalgia/chronic pain syndrome Tylenol PRN Patient does not use narcotics at home FMF Patient uses colchicine at a reduced dose due to cirrhosis of the liver LFTs are currently normal GERD Continue famotidine Patient currently asymptomatic Hypothyroidism Continue levothyroxine DVT prophylaxis: Lovenox Med rec pending Full Code status Above plan reviewed with the attending Dr. Little. Quality Stroke Does the patient have a stroke diagnosis?: No Reason for No Anti-thrombotic by Day Two: N/A - Med Ordered VTE Prior VTE?: No VTE Risk Level:: Medical - moderate - high VTE Device Contraindication: N/A - Device Ordered VTE Drug Contraindication: N/A - Med Ordered
[2024-11-21 02:00] LABS: Procalcitonin 0.11 ng/mL
--- NOTE | 2024-11-21 02:39 | PC.NURSE ---
Discussed bedrest orders and offered bedside commode, purewick and be dpan to pt. PT refused all three stating she has been ambulating to the bathroom independently. Educated pt on safety risk and encouraged her to use one of the three options, pt continues to refuse. states she is not dizzy
[2024-11-21 04:07] LABS: Glucose, Whole Blood 113 mg/dL (60-115)
[2024-11-21 06:26] LABS: MANUAL DIFF FLAG NO
[2024-11-21 06:29] LABS: Hematocrit 36.2 % (37.0-47.0); Hemoglobin 12.6 g/dl (12.0-16.0); Imm Gran Abs Auto 0.04 X10*3/uL (0.00-0.03); Imm Gran Pct Auto 0.4 % (0.0-0.4); Lymphocytes Absolute Auto 2.5 X10*3/uL (1.2-4.9); Mean Corpuscular HGB Conc 34.8 g/dl (31.0-35.0); Mean Corpuscular Hemoglobin 31.9 pg (27.0-33.0); Mean Corpuscular Volume 91.6 fL (80.0-98.0); NRBC Abs Auto 0.000 X10*3/uL (0.0-0.012); NRBC Pct Auto 0.0 /100WBC (0.0-0.2); Platelet Count 202 X10*3/uL (160-400); Red Blood Count 3.95 X10*6/uL (4.20-5.50); White Blood Count 9.5 X10*3/uL (4.8-10.8)
[2024-11-21 06:52] LABS: Alanine Aminotransferase 24 U/L (0-31); Albumin Level 4.1 g/dL (3.5-5.0); Alkaline Phosphatase 83 U/L (39-117); Anion Gap 11 (12-20); Aspartate Amino Transferase 42 U/L (5-31); Blood Urea Nitrogen 15 mg/dL (9-16); Calcium 9.0 mg/dL (8.4-10.2); Carbon Dioxide 26 mmol/L (22-29); Chloride 104 mmol/L (96-108); Creatinine Clr Calc Pharmacy 51.9; Estimated Glomerular Filt Rate > 60; Potassium 3.6 mmol/L (3.3-5.1); Sodium 137 mmol/L (135-145); Total Protein 6.3 g/dL (6.5-8.0)
--- NOTE | 2024-11-21 07:25 | PC.NURSE ---
Pt A+OX3; vss; pt denies dizziness/N/V at this time; tolerating PO intake without issue; pt declining to have POC BG and insuling sliding scale coverage, stating that she's on weekly Ozempic and has not needed insulin since; awaiting bed for admission
[2024-11-21 07:55] LABS: Glucose, Whole Blood 146 mg/dL (60-115)
--- NOTE | 2024-11-21 08:25 | PC.NURSE ---
U/S called to ask for pt to be fasting for a renal Doppler; pt made aware
--- NOTE | 2024-11-21 09:24 | PHA.MEDREC ---
Addendum entered by Sean Lewis PharmD 11/21/24 09:33: reviewed Original Note: Pharmacy Consult ? Medication Reconciliation Pharmacy has completed the medication reconciliation. Spoke with pt and she was able to confirm her medications. Pt confirmed she stopped taking Lantus 2 weeks ago and states she has been taking Ozempic once a week on Sundays since then and states her sugars have been normal since stopping Lantus.
[2024-11-21] MEDS: Potassium Chloride ER 10 MEQ TABLET.ER PO (13:38)
[2024-11-21] MEDS: Metoprolol Succinate ER 25 MG TAB.ER.24H PO (13:38)
--- NOTE | 2024-11-21 13:55 | MHC.CM.PN ---
IMM 11/21/24, Pt lives alone, she has 5 hrs per week [employer] assistance from [facility]. She does not use VNA services, she uses a cane for DME. HCP is her sister, form will be completed here and added to chart. Sister to transport pt. home at DC, DCP: home self care or with services. CM to follow for DC needs.
--- NOTE | 2024-11-21 18:14 | PM.EVENT ---
Event Note Date of Service: 11/21/24 Event Note: Patient remains in ED boarding. On evaluation the patient has expressed no persistent complaints, and reports feeling stable. Physical examination unremarkable other than abdominal pain at the suprapubic, LLQ & RRQs to light and deep palpation. Labs revealing hyponatremia and hypokalemia notably. IMPRESSION Acute syncopal episode in the setting of hypovolemia from diarrhea/ colitis, complicated by possibl;e pyelonephritis. PLAN - Continue management as planned - Continue to monitor urinary and stool output Time Spent With Patient Time: Total time managing care of this patient today 20 minutes.
[2024-11-21 22:28] LABS: Glucose, Whole Blood 103 mg/dL (60-115)
[2024-11-21] MEDS: 0.9 % Sodium Chloride Flush 3 ML SYRINGE IVFLUSH (22:49)
--- NOTE | 2024-11-21 23:22 | PC.RT ---
pt has refused x 2 nights micaela row due to that she does not like the full face mask. i aksed her if she can bring in hers and she cannot. therefore order will be dc'd per policy
[2024-11-22 03:04] VITALS: BP 139/55; PULSE 89; RESP 16; TEMP 36.5; O2SAT 97
[2024-11-22 07:23] VITALS: BP 133/61; PULSE 86; RESP 18; TEMP 36.3; O2SAT 95
[2024-11-22 07:25] LABS: Glucose, Whole Blood 100 mg/dL (60-115)
[2024-11-22 07:25] LABS: Glucose, Whole Blood 93 mg/dL (60-115)
[2024-11-22 07:38] VITALS: BP 132/63; PULSE 89
[2024-11-22 07:39] VITALS: BP 158/72; PULSE 94
[2024-11-22] MEDS: Metoprolol Succinate ER 25 MG TAB.ER.24H PO (08:54)
[2024-11-22] MEDS: Potassium Chloride ER 10 MEQ TABLET.ER PO (08:55)
[2024-11-22 09:04] LABS: Hematocrit 34.8 % (37.0-47.0); Hemoglobin 12.3 g/dl (12.0-16.0); Imm Gran Abs Auto 0.06 X10*3/uL (0.00-0.03); Imm Gran Pct Auto 0.7 % (0.0-0.4); Lymphocytes Absolute Auto 1.7 X10*3/uL (1.2-4.9); MANUAL DIFF FLAG SCAN; Mean Corpuscular HGB Conc 35.3 g/dl (31.0-35.0); Mean Corpuscular Hemoglobin 32.0 pg (27.0-33.0); Mean Corpuscular Volume 90.6 fL (80.0-98.0); NRBC Abs Auto 0.000 X10*3/uL (0.0-0.012); NRBC Pct Auto 0.0 /100WBC (0.0-0.2); PLT CLUMP 1; Red Blood Count 3.84 X10*6/uL (4.20-5.50); SCAN SMEAR FLAG 1
[2024-11-22 09:05] LABS: White Blood Count 9.1 X10*3/uL (4.8-10.8)
[2024-11-22 09:28] LABS: Alanine Aminotransferase 32 U/L (0-31); Albumin Level 3.9 g/dL (3.5-5.0); Alkaline Phosphatase 75 U/L (39-117); Anion Gap 12 (12-20); Aspartate Amino Transferase 49 U/L (5-31); Blood Urea Nitrogen 8 mg/dL (9-16); Calcium 8.5 mg/dL (8.4-10.2); Carbon Dioxide 21 mmol/L (22-29); Chloride 107 mmol/L (96-108); Creatinine Clr Calc Pharmacy 55.8; Estimated Glomerular Filt Rate > 60; Potassium 3.8 mmol/L (3.3-5.1); Sodium 136 mmol/L (135-145); Total Protein 6.3 g/dL (6.5-8.0)
[2024-11-22 09:41] LABS: Platelet Count 142 X10*3/uL (160-400)
[2024-11-22 11:15] LABS: Glucose, Whole Blood 110 mg/dL (60-115)
[2024-11-22 11:19] VITALS: BP 131/63; PULSE 93; RESP 18; TEMP 37.3; O2SAT 94
--- NOTE | 2024-11-22 11:47 | MHC.CM.PN ---
PT TO DC HOME TODAY WITH RESUMPTION OF HER HOME [employer]GANIZER SERVICES SISTER TO TRANSPORT
--- NOTE | 2024-11-22 13:35 | P.DS_ITS ---
DS: Providers Provider Date of Service: 11/21/24 Date of admission: 11/21/24 00:57 Date of discharge: 11/22/24 Primary care physician: Sivan Montgomery MD DS: Diagnosis Discharge Diagnosis (1) Near syncope: Status: Acute DS: Summary Hospital Course Hospital Course: As per H&P: Patient is a 74-year-old female with past medical history COPD/asthma on home O2, hyperlipidemia, FMF (familial mediterranean fever), cirrhosis from being on colchicine, OA, urinary incontinence, GERD, small hiatal hernia, scoliosis and kyphosis, , IBS, hypothyroidism, hypertension, IDDM, allergic rhinitis, BLAIR on CPAP, and fibromyalgia/ chronic pain syndrome, degenerative joint disease lower back, presents to the emergency department after a near syncopal episode after getting out of the senior transportation van. Patient was able to sit before passing out completely. Pt was reports abdominal pain that spread across the lower abdomen. Patient currently denies any abdominal pain, nausea or vomiting. Patient has not had any fevers or chills as well. Patient reports recent diarrhea with nausea. Pt does have IBS- CD and will have episodes of noninfectious diarrhea intermittently. Workup in the emergency department included a CT of the abdomen and pelvis which noted a possible pyelonephritis versus right renal cortical infarction. Patient was treated for right flank pain as well as hypokalemia. Patient was also started on antibiotics and fluids. UA positive only for +2 leukocyte esterase otherwise negative for UTI. Patient did not present with evidence of sepsis. Patient is not currently on blood thinners. EKG notes sinus tachycardia with no evidence of ischemia. QTC 465. Pt reports that her father dies of a blood clot at age 41. Patient has been on disability for chronic pain issues and back problems. Patient is now with a point where she can barely walk at times. Patient does have a neurostimulator in the thoracic spine and is being followed by a specialist in the outpatient setting. Patient denies any loss of bowel or bladder control. Neuro exam reassuring. Patient recently restarted on Ozempic 4 weeks ago for diabetes management. Patient injects the medications on Sundays. Patient denies history of bowel obstruction or ileus. Patient does not use insulin. 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 There is evidence of colonic wall thickening which could indicate colitis versus under distention. As stated above patient does have history of IBS, C-D. Patient's abdominal pain is currently resolved. The patient endorses straining in pain when she was in the van prior to getting out. She reports bearing down during this period, and rapidly [id number]. While inpatient, the patient has been eating and drinking appropriately. No other syncopal episodes or findings on ECG/ telemetry. Impression that the patient primarily suffered with an acute vasovagal event with minimal LoC, with superimposed issue of mild diarrhea and self endorsed dehydration. Status at Discharge Functional status at discharge: independent ambulation Overall status at discharge: patient is back to baseline Time Attestation Total time managing care of this patient today: 35 mintues. Discharge Coordination Time (in mins): 15 Quality: Safe Use of Opioids Does Pt have an Active Cancer Diagnosis on the Problem List?: No Quality: Stroke Does the patient have a stroke diagnosis?: No Physical Exam Exam: Exam: General: A&O x3, oriented to time place person and siutaion, comfortable, no pain Cardiac: S1, S2 auscultated with no S3/4, mild RUSB murmur auscultated without radiation to the carotids or to the mitral valve. Well perfused. Respiratory: Normal breath sounds auscultated throughout all lung zones, without wheezing, rales. Normal rate. GI/ : No abdominal pain on palpation, no masses or distentions. MSK: Normal ambulation without pain at bony prominences or musculature Neurological: Normal neurological examination on overview, without obvious CN II-XII abnormalities. Vital Signs: Vital Signs: Last Vital Signs Temp 99.1 F 11/22/24 11:19 Pulse 93 11/22/24 11:19 Resp 18 11/22/24 11:19 BP 131/63 11/22/24 11:19 Pulse Ox 94 11/22/24 11:19 O2 Del Method Room Air 11/22/24 11:19 BMI result Body Mass Index 29.4 DS: Data Data Completed and Pending Completed studies during hospitalization [Text1]: Procedures Replacement of Right Hip Joint with Ceramic on Polyethylene Synthetic Substitute, Uncemented, Open Approach (06/25/23) Labs on day of discharge: Laboratory Results - last 24 hr 11/21/24 11/22/24 11/22/24 22:24 05:54 07:21 WBC RBC Hgb Hct MCV MCH MCHC RDW Plt Count MPV Immature Gran % (Auto) Neut % (Auto) Lymph % (Auto) [place] % (Auto) Eos % (Auto) Baso % (Auto) Lymph # (Auto) [place] # (Auto) Eos # (Auto) Baso # (Auto) Abs Immat Gran (auto) Absolute Neuts (auto) Absolute Nucleated RBC Nucleated RBC % (auto) Smear Tech's Comments Sodium Potassium Chloride Carbon Dioxide Anion Gap BUN Creatinine Estim Creat Clear Calc Estimated GFR POC Glucose 103 93 100 Random Glucose Calcium Total Bilirubin AST ALT Alkaline Phosphatase Total Protein Albumin 11/22/24 11/22/24 08:15 11:11 WBC 9.1 RBC 3.84 L Hgb 12.3 Hct 34.8 L MCV 90.6 MCH 32.0 MCHC 35.3 H RDW 13.2 Plt Count 142 L D MPV 11.0 Immature Gran % (Auto) 0.7 H Neut % (Auto) 71.1 Lymph % (Auto) 18.6 L [place] % (Auto) 8.2 Eos % (Auto) 0.9 Baso % (Auto) 0.5 Lymph # (Auto) 1.7 [place] # (Auto) 0.8 Eos # (Auto) 0.1 Baso # (Auto) 0.1 Abs Immat Gran (auto) 0.06 H Absolute Neuts (auto) 6.5 Absolute Nucleated RBC 0.000 Nucleated RBC % (auto) 0.0 Smear Tech's Comments VERIFIED Sodium 136 Potassium 3.8 Chloride 107 Carbon Dioxide 21 L Anion Gap 12 BUN 8 L Creatinine 0.85 Estim Creat Clear Calc 55.8 Estimated GFR > 60 POC Glucose 110 Random Glucose 108 Calcium 8.5 Total Bilirubin 0.8 AST 49 H ALT 32 H Alkaline Phosphatase 75 Total Protein 6.3 L Albumin 3.9 Preliminary micro results at discharge 11/21/24 01:21 Blood Culture - Preliminary Blood - Venous No growth after 24 hours. 11/21/24 01:21 Blood Culture - Preliminary Blood - Venous No growth after 24 hours. Discharge Plan Discharge Anticipated Discharge Date/Time: 11/22/24 14:00 Patient Disposition: Home, Self-Care Discharge Diagnosis: Acute vasovagal syncope with brief LoC in the setting of acute mild colitis and poor PO intake. Referrals: Sivan Montgomery MD [Primary Care Provider, Internal Medicine] - 1 Week Discharge Medications: New levofloxacin 750 mg tablet 750 mg PO DAILY Qty: 3 0RF Continued cetirizine 10 mg Tablet 10 mg PO BEDTIME colchicine 0.6 mg tablet 0.3 mg PO DAILY magnesium 200 mg Tablet 200 mg PO DAILY cholecalciferol (vitamin D3) [Vitamin D3] 50 mcg (2,000 unit) Capsule 50 mcg PO DAILY potassium chloride 10 mEq Tablet Extended Release 10 meq PO DAILY loperamide 2 mg Capsule 2 mg PO Q4H PRN (Reason: Loose Stool) Rx Instructions: administer after each loose stool until symptoms controlled; do not exceed 8 mg per 24 hrs cyclobenzaprine 5 mg tablet 5 mg PO TID PRN (Reason: Muscle Spasm) Ozempic 0.25 mg or 0.5 mg (2 mg/3 mL) pen injector 0.25 mg SUBCUT TIDWELL nitroglycerin 0.3 mg tablet, sublingual 0.3 mg sublingual ONCE PRN (Reason: Chest Pain) fluticasone propionate 50 mcg/actuation spray,suspension 1 spray intranasal DAILY PRN (Reason: Nasal Congestion) (DME) OneTouch Verio test strips Strip See Rx Instructions .ROUTE TID Qty: 10 Rx Instructions: As directed albuterol sulfate 90 mcg/actuation HFA aerosol inhaler 1 inh inhalation Q4H PRN (Reason: Shortness Of Breath Or Wheezing) (DME) pen needle, diabetic [BD Sun 2nd Gen Pen Needle] 32 gauge x 5/32 needle See Rx Instructions .ROUTE .MEDSUPPLY Qty: 50 Rx Instructions: As directed famotidine 40 mg tablet 40 mg PO BID epinephrine 0.3 mg/0.3 mL auto-injector 0.3 mg IM ONCE PRN (Reason: Anaphylaxis) levothyroxine 125 mcg tablet 125 mcg PO DAILY@0600 sumatriptan succinate 100 mg tablet 100 mg PO DAILY PRN (Reason: Migraine Headache) hydrochlorothiazide 12.5 mg tablet 12.5 mg PO DAILY metoprolol succinate 25 mg tablet extended release 24 hr 25 mg PO DAILY atorvastatin 20 mg tablet 20 mg PO BEDTIME (DME) CPAP Machine/Device Device See Rx Instructions .Route Rx Instructions: As directed (DME) Oxygen Home Use Kit See Rx Instructions .Route Rx Instructions: As directed turmeric 400 mg capsule 400 mg PO DAILY Discharge Orders: Discharge Order (Routine); Ordered 11/22/24 Ordered By: Osama Kandalaft Diet: Advance to usual diet Activity on Discharge: As tolerated Stand Alone Forms: Patient Portal Discharge page Print Language: Barbadian Care Plan Goals: - Follow up PCP within 1-2 weeks of discharge - Continue antibiotics until completed - Follow up with PCP regarding ECHO/ Afib outpatient setting in the setting of syncopal episode Health Concerns: as above Plan of Treatment: - Follow up PCP within 1-2 weeks of discharge - Continue antibiotics until completed - Follow up with PCP regarding ECHO/ Afib outpatient setting in the setting of syncopal episode Assessment: Overall stable patient, back to baseline with resolution of electrolyte imbalances and hydration status.
== END 2024-11-22 14:40 | disposition home or self-care (01) | DRG 392 ==
LOC: HO.ED 11-21 00:58 → HO.EDOVER 11-21 01:03 → HO.IMC 11-21 19:46
PROVIDERS: Nurse Practitioner Family; Registered Nurse Emergency; Admitting Provider Student in an Organized Health Care Education/Training Program; Emergency Provider Emergency Medicine; PCP Family Medicine; Visit Provider Hospitalist
DX: K52.9 Noninfective gastroenteritis and colitis, unspecified (principal); E87.0 Hyperosmolality and hypernatremia; J44.9 Chronic obstructive pulmonary disease, unspecified; E03.9 Hypothyroidism, unspecified; E86.0 Dehydration; E11.9 Type 2 diabetes mellitus without complications; I10 Essential (primary) hypertension; E86.1 Hypovolemia; M79.7 Fibromyalgia; G89.29 Other chronic pain; E87.6 Hypokalemia; M04.1 Periodic fever syndromes; K74.69 Other cirrhosis of liver; T50 Poisoning by, adverse effect of and underdosing of diuretics and other and unspecified drugs, medicaments and biological substances; Z99.81 Dependence on supplemental oxygen; Z79.890 Hormone replacement therapy; Z79.899 Other long term (current) drug therapy
CPT/HCPCS: 36415; 74177; 76775; 80053; 81001; 82947; 83605; 83690; 83735; 84145; 85025; 85610; 87040; 87086; 93005; 93975; 99285; J1650; J1885; J1956; J2405; J3480; Q9967

== ENCOUNTER → 2024-11-20 15:24 | Outpatient (BNV) | payer MEDICARE, MEDICAID, SELFPAY | PROVIDERS: Admitting Provider Student in an Organized Health Care Education/Training Program; Emergency Provider Emergency Medicine; PCP Family Medicine; Visit Provider Internal Medicine | DX: R00.0 Tachycardia, unspecified (principal) | CPT/HCPCS: 93010 ==

== ENCOUNTER → 2024-11-20 20:01 | Outpatient (BNV) | payer MEDICARE, MEDICAID, SELFPAY | PROVIDERS: Emergency Provider Emergency Medicine; PCP Family Medicine; Visit Provider Radiology Diagnostic Radiology | DX: R10.9 Unspecified abdominal pain (principal); R11.2 Nausea with vomiting, unspecified | CPT/HCPCS: 74177 ==

== ENCOUNTER 2024-11-21 00:57 | Outpatient (BNV) | payer MEDICARE, MEDICAID, SELFPAY | END 2024-11-21 13:45 | PROVIDERS: Admitting Provider Student in an Organized Health Care Education/Training Program; Emergency Provider Emergency Medicine; PCP Family Medicine; Visit Provider Radiology Diagnostic Radiology | DX: N28.1 Cyst of kidney, acquired (principal) | CPT/HCPCS: 93975 ==

== ENCOUNTER → 2024-11-21 00:57 | Outpatient (BNV) | payer MEDICARE, MEDICAID, SELFPAY | PROVIDERS: Admitting Provider Student in an Organized Health Care Education/Training Program; Emergency Provider Emergency Medicine; PCP Family Medicine; Visit Provider Nurse Practitioner Family | DX: R55 Syncope and collapse (principal) | CPT/HCPCS: 99223; 99499 ==

== ENCOUNTER 2024-12-09 07:35 | Outpatient (AMB) | payer MEDICARE, SELFPAY ==
--- OUTSIDE RECORDS SUMMARY | 2021-02-23 20:51 | XMS_ITS | Encounter Summary ---
Author Organization [facility] Address [address] [place] [address] Phone Care Team Providers Care Naval Designer Name Role Phone Ruy Darling MD Unavailable [phone] Adin Becerra MD Unavailable [email or web address] [email or web address] Kathleen Lopez MD Unavailable Weston Hamilton DO Unavailable [phone] Sivan Montgomery MD, MPH Primary Care Provid er Santa Lewis MD Unavailable [phone] Encounter Details Date Type Department Care Team (Late st Contact Info) Description 02/23/2021 7:51 PM EST Hospital Encounter [facility] Ur[facility] Care 12 [place] [address] Leigh Ann Whalen PA 12 [place] [address] [email or web address] Social History Tobacco Use Types Packs/Day Years [...] st Contact Info) Description 12/04/2024 Procedure Pass [facility] Echo Lab 30 [place] [address] 01/01/2025 9:30 AM EDT Appointment [facility] Echo Lab [address] [place] [address] Pooja Elam MD [address] [address] 01/08/2025 9:00 AM EDT Nurse Only [facility] 15 [facility] 201 [place] [address] Sivan Montgomery MD, MPH [address] [address] 04/01/2025 8:00 AM EST Office Visit [facility] Rheumatology [address] [place] [address] Alma Delia Castro MD [address] [place] [address], [address] [place] [address] [email or web address] 05/15/2025 1:20 PM EST Office Visit [facility] [address], [address] [place] [address] Juan Burns MD 22 [facility], [address] [place] [address] 05/26/2025 8:00 AM EST Office Visit [facility] [address] [place] [address] Pooja Elam MD 15 [facility] [address] [place] [address] 06/08/2025 9:00 AM EST Office Visit [facility] [address] [place] [address] Santa Lewis MD 22 [facility], 1st [place] [address] 06/15/2025 9:00 AM EST Office Visit [facility] [address], [address] [place] [address] Anup Ward MD, MS 22 [facility], [address] [place] [address] 11/24/2025 9:00 AM EDT Office Visit [facility] [address] [place] [address] Pooja Elam MD 15 [facility] [address] [place] [address] documented as of this encounter Procedures Procedure Name Priority Date/Time Associated Diagnosis Comments XR ANKLE 3 OR MORE VIEWS (LEFT) Urgent/patient waiting 02/23/2021 8:05 PM EST Sprain of left ankle, unspecified ligament, initial encounter documented in this encounter Results * XR ANKLE 3 OR MORE VIEWS (LEFT) (02/23/2021 8:05 PM EST) Anatomical Region Laterality Modality Ankle Left Computed Radiogr aphy 02/23/2021 8:30 PM [...] documented as of this encounter Care Teams Naval Designer Relationship Specialty Start Date End Date Sivan Montgomery MD, MPH [address] [place] [phone] [email or web address] PCP - General Family Medicine 08/20/20 Ruy Darling MD [address] [place] [address] [email or web address] Historical LMR Provider 01/30/17 12/23/23 Adin Becerra MD [email or web address] Historical LMR Provider 01/30/17 02/19/22 Kathleen Lopez MD [address] [place] [address], [address] [place] [address] Historical LMR Provider 01/30/17 Weston Hamilton DO [address] [address] Historical LMR Provider 01/30/1702/19 Santa Lewis MD 22 [facility], 1st [place] [address] Endocrinology 10/26/20 documented as of this encounter Additional Source Comments The information contained in this document represents components of the legal health record. It is not the complete legal health record.[facility]
--- OUTSIDE RECORDS SUMMARY | 2021-02-23 20:51 | XMS_ITS | Encounter Summary ---
Author Organization [facility] Address [address] [place] [address] Phone Care Team Providers Care Stump Shooter Name Role Phone Ruy Darling MD Unavailable [phone] Adin Becerra MD Unavailable [email or web address] Kathleen Lopez MD Unavailable Weston Hamilton DO Unavailable [phone] Sivan Montgomery MD, MPH Primary Care Provid er Santa Lewis MD Unavailable [phone] Encounter Details Date Type Department Care Team (Late st Contact Info) Description 02/23/2021 7:51 PM EST Hospital Encounter [facility] 12 [place] [address] Leigh Ann Whalen PA 12 [place] [address] [email or web address] Social History Tobacco Use Types Packs/Day [...] st Contact Info) Description 12/04/2024 Procedure Pass [facility] Echo Lab 30 [place] [address] 01/01/2025 9:30 AM EDT Appointment [facility] Echo Lab 30 [place] [address] Pooja Elam MD [address] [address] 01/08/2025 9:00 AM EDT Nurse Only [facility] [place] [facility] 15 [facility] 201 [place] [address] Sivan Montgomery MD, MPH [address] [address] 04/01/2025 8:00 AM EST Office Visit [facility] Rheumatology [address] [place] [address] Alma Delia Castro MD [address] [place] [address], [address] [place] [address] [email or web address] 05/15/2025 1:20 PM EST Office Visit [facility] [address], [address] [place] [address] Juan Burns MD 22 [facility], [address] [place] [address] 05/26/2025 8:00 AM EST Office Visit [facility] [place] [facility] [address] [place] [place] [address] Pooja Elam MD 15 [facility] [address] [place] [address] 06/08/2025 9:00 AM EST Office Visit [facility] [address] [place] [address] Santa Lewis MD 22 [facility], 1st [place] [address] 06/15/2025 9:00 AM EST Office Visit [facility] [address], [address] [place] [address] Anup Ward MD, MS 22 [facility], [address] [place] [address] 11/24/2025 9:00 AM EDT Office Visit [facility] [place] [facility] [address] [place] [place] [address] Pooja Elam MD 15 [facility] [address] [place] [address] documented as of this encounter Procedures Procedure [...] documented as of this encounter Care Teams Stump Shooter Relationship Specialty Start Date End Date Sivan Montgomery MD, MPH [address] [place] [address] [email or web address] PCP - General Family Medicine 08/20/20 Ruy Darling MD [address] [place] [address] [email or web address] Historical LMR Provider 01/30/17 12/23/23 Adin Becerra MD [email or web address] Historical LMR Provider 01/30/17 02/19/22 Kathleen Lopez MD [address] [place] [address], [address] [place] [address] Historical LMR Provider 01/30/17 Weston Hamilton DO [address] [address] Historical LMR Provider 01/30/1702/19 Santa Lewis MD 22 [facility], 1st [place] [address] Endocrinology 10/26/20 documented as of this encounter Additional Source Comments The information contained in this document represents components of the legal health record. It is not the complete legal health record.[facility]
--- OUTSIDE RECORDS SUMMARY | 2024-12-04 11:00 | XMS_ITS | Encounter Summary ---
Author Organization [facility] Address [address] [place] [address] Phone Care Team Providers Care [employer]ef Name Role Phone Kathleen Lopez MD Unavailable Sivan Montgomery MD, MPH Primary Care Provid er Santa Lewis MD Unavailable [phone] Alma Delia Castro MD Unavailable [phone] Archie Ramos MD Unavailable [phone] Sung Jane MD Unavai lable José Hernández MD Unavailable [phone] Ruy Darling MD Unavailable [phone] Reason for Referral * Outpatient Procedure - Authorized Specialty Diagnoses / Procedures Referred By Contac t Referred To Contact Diagnoses Abnormal electrocardiogram (ECG) (EKG) Syncope and collapse Procedures Adult Echo TTE Pooja Elam MD [address] [facility] [address] [place] [address] Phone: tel: fax: [email or web address] Referral ID Status Reason Start Date Expiration Date V isits Requested Visits Authorized [id number] Authorized 12/04/2024 12/04/2025 1 1 Reason for Visit * Reason Comments Follow Up Visit Encounter Details Date Type Department Care Team (Latest Contact Info) Description 12/04/2024 11:00 AM EDT Office Visit [facility] [address] [facility] [address] [place] [address] Pooja Elam MD [address] [facility] [address] [place] [address] [email or web address] Abnormal electrocardiogram (ECG) (EKG) (Primary Dx); Syncope and collapse; Intractable abdominal pain Social History Tobacco Use Types Packs/Day Years [...] on file documented as of this encounter Last Filed Vital Signs Vital Sign Reading Time Taken Comments Blood Pressure 132/76 12/04/2024 11:00 AM EDT Pulse 87 12/04/2024 11:00 AM EDT Temperature 36.7 C (98 F) 12/04/2024 11:00 AM EDT Respiratory Rate - - Oxygen Saturation 98% 12/04/2024 11:00 AM EDT Inhaled Oxygen Concentration - - Weight 70.3 kg (155 lb) 12/04/2024 11:00 AM EDT Height 157.5 cm (5' 2 ) 12/04/2024 11:00 AM EDT Body Mass Index 28.35 12/04/2024 11:00 AM EDT documented in this encounter Progress Notes * Pooja Elam MD - 12/04/2024 11:00 AM EDT Subjective Meron Soria is a 74 y.o. female presenting after a recent admission to [facility] from 11/21/2024 to 11/22/2024 following a syncopal event. History of Present Illness Prior to her syncopal episode, she experienced a sudden onset of abdominal pain, which she initially attributed to an FMF attack. Concurrently, she developed a migraine and felt weakness in her legs,leading to a fall on the stairs. She very briefly lost consciousness during this episode, but did not hit her head. She was diagnosed with a kidney infection, for which she was treated with antibiotics. Her condition has improved since then, although she experienced another near-fall incident a few days post-discharge. She has completed her course of levofloxacin. She used to experience frequent episodes of tachycardia, but these have become less common recently. On imaging, she had cysts in the left kidney. She was also told that she had low sodium and potassium levels, and these were repleted to normal levels on the date of discharge. Echocardiogram and cardiology follow up were recommended. TCM Discharge Call Documentation: TCM Post Discharge Visit December [id number] AM Here for f/u of recent hospitalization, discharged 11/22/2024. See RN Post-Discharge Phone Follow-Up Note for specific dates of hospitalization, discharge diagnosis, medication reconciliation and specifics of follow up appointments. Discharge summary, including hospital course, laboratory results, imaging, and other test results as applicable reviewed. Brief summary of hospitalization: Evaluated after short syncopal episode, diagnosed with pyelonephritis and dehydration, treated with antibiotics, IVF, and electrolyte repletion Since hospitalization: Feeling better, has completed levofloxacin. Has occasional lightheadedness with position changes, no palpitations Review of Systems Constitutional: Negative for fatigue and fever. Respiratory: Negative for chest tightness and shortness of breath. Cardiovascular: Negative for palpitations. Neurological: Positive for light-headedness. Psychiatric/Behavioral: Negative for confusion. The patient is not nervous/anxious. Objective Vitals: 12/04/24 1100 BP: 132/76 Pulse: 87 Temp: 36.7 ??C (98 ??F) SpO2: 98% Weight: 70.3 kg (155 lb) Height: 157.5 cm (5' 2 ) Physical Exam Gen: NAD Cardiovascular: Regular rate and rhythm, no murmurs, rubs, or gallops Lungs: CTAB Back: no CVA tenderness Gastrointestinal: Soft, no distention, no masses. Tenderness noted in the right lower quadrant. Pending Tests: Follow-up on pending diagnostic tests/treatments: none Assessment & Plan 1. Post-syncopal (vasovagal) event, with electrolyte imbalance - An echocardiogram will be ordered. Blood tests will be conducted today to monitor her potassium and sodium levels, as well as her liver function. If the echocardiogram is not scheduled by next Sunday, she should call the provided number. 2. Abdominal pain: - She reports ongoing abdominal pain, which is a chronic issue for her. - A recent CT scan showed colonic wall thickening, which could be due to colitis. She was previously treated with levofloxacin for a kidney infection, which has resolved. The abdominal pain is still present but more stable today. - Blood tests will be conducted to monitor her liver function. Referrals/Orders Referrals have been completed/scheduled for the following providers and reasons Future Appointments Date Time Provider Department Center 12/08/2024 9:00 AM [facility] NURSE [facility] None 04/01/2025 8:00 AM Alma Delia Castro MD [facility] None 05/15/2025 1:20 PM Juan Burns MD [facility] None 05/26/2025 8:00 AM Pooja Elam MD [facility] None 06/08/2025 9:00 AM Santa Lewis MD [facility] None 06/15/2025 9:00 AM Anup Ward MD, MS [facility] None 11/24/2025 9:00 AM Pooja Elam MD [facility] None Orders Placed This Encounter Procedures Basic metabolic panel Standing Status: Future Expected Date: 12/04/2024 Expiration Date: 12/04/2025 LFTs (hepatic panel) Standing Status: Future Expected Date: 12/04/2024 Expiration Date: 12/04/2025 Adult Echo TTE Standing Status: Future Expected Date: 12/04/2024 Expiration Date: 03/06/2025 Where should the procedure be performed?: [facility] Where should the procedure be performed?: [facility] Main [place] Is agitated saline (bubble study) required for this study?: No Is an imaging enhancement agent required for this study (echo contrast)?: No Does this order need to be coordinated with a follow up visit within the same time frame?: No Release to patient: Immediate [1] Other Referrals: none, patient has already been referred to cardiology based on EKG at last visit Supports and Services: Caregiver - the caregiver at home is self Community resources/home care services documented in nursing note above, reviewed today. Communication: Interactions with other health care providers - Communication with the following providers (with reason listed): none Education Provided: patient educated regarding relevant medical issues and treatment recommendations Assessment of treatment regimen, adherence and medication management: good I obtained verbal consent from the patient or their proxy to record this visit for purposes of producing a draft of the encounter documentation. I have maintained a long-term, longitudinal relationship with this patient, overseeing care of chronic conditions, including T2DM, hypertension, hyperlipidemia, and familial mediterranean fever. Thiscare relationship has significantly influenced my decision-making and treatment plans during today's encounter. documented in this encounter Plan of Treatment Upcoming Encounters Date Type Department Care Team (Late st Contact Info) Description 12/04/2024 Procedure Pass [facility] Echo [facility] [address] [place] [address] 01/01/2025 9:30 AM EDT Appointment [facility] Echo [facility] [address] [place] [address] Pooja Elam MD [address] [address] 01/08/2025 9:00 AM EDT Nurse Only Kera Naqvi [facility] [address] [address] Sivan Montgomery MD, MPH [address] [address] 04/01/2025 8:00 AM EST Office Visit [facility] [address] [place] [address] Alma Delia Castro MD [address] [facility], [address] [place] [address] [email or web address] 05/15/2025 1:20 PM EST Office Visit [facility] [address] [facility] 3[address] Floor, [address] [place] [address] Juan Burns MD [address] [facility], [address] [place] [address] [email or web address] 05/26/2025 8:00 AM EST Office Visit [facility] [address] [facility] [address] [place] [address] Pooja Elam MD 15 [facility] [address] [place] [address] 06/08/2025 9:00 AM EST Office Visit [facility] [address] [place] [address] Santa Lewis MD 22 [facility], 1st [place] [address] 06/15/2025 9:00 AM EST Office Visit [facility] [address], [address] [place] [address] Anup Ward MD, MS [address] [facility], [address] [place] [id number] 11/24/2025 9:00 AM EDT Office Visit [facility] [address] [place] [address] Pooja Elam MD [address] [place] [address] [address] [place] [address] [email or web address] Scheduled Orders Name Type Priority Associated Diagnoses Orde r Schedule Adult Echo TTE Echocardiography Routine Abnormal electrocardiogram (ECG) (EKG) Syncope and collapse Expected: 12/04/2024, Expires: 03/06/2025 documented as of this encounter Visit Diagnoses Diagnosis Abnormal electrocardiogram (ECG) (EKG)- Primary Syncope and collapse Intractable abdominal pain documented in this encounter Additional Health Concerns Assessment Noted Time PHQ-2 Depression Total Score: 0 11/21/19 24 9:11 AM EDT documented as of this encounter Care Teams [employer] Relationship Specialty Start Date End Date Sivan Montgomery MD, MPH [address] [facility] [address] [place] [address] [email or web address] PCP - General Family Medicine 08/20/20 Kathleen Lopez MD [address] [facility], [address] [place] [address] Historical LMR Provider 01/30/17 Santa Lewis MD [address] [facility], 1st [place] [address] Endocrinology 10/26/20 Alma Delia Castro MD [address] [facility], [address] [place] [address] Rheumatology 02/20/22 Archie Ramos MD [address] [place] [address] [address] [place] [address] Orthopedic Surgery 12/24/23 Sung Janewy, MD [address] [place] [address] [address] [place] [address] Neurology 12/24/23 José Hernández MD [address] [place] [address] [place] [id number] Neurosurgery 12/24/23 Ruy Darling MD [address] [place] [id number] [email or web address] Intensive Care 12/24/23 documented as of this encounter Additional Source Comments The information contained in this document represents components of the legal health record. It is not the complete legal health record.[facility]
--- OUTSIDE RECORDS SUMMARY | 2024-12-04 11:27 | XMS_ITS | Encounter Summary ---
Author Organization [facility] Address [address] [place] [address] Phone Care Team Providers Care Professional Soccer Player Name Role Phone Kathleen Lopez MD Unavailable Sivan Montgomery MD, MPH Primary Care Provid er Santa Lewis MD Unavailable [phone] Alma Delia Castro MD Unavailable [phone] Archie Ramos MD Unavailable Sung Jane MD Unavai lable José Hernández MD Unavailable Ruy Darling MD Unavailable [phone] Encounter Details Date Type Department Care Team (Latest Contact Info) Description 12/04/2024 11:27 AM EDT - 12/04/2024 11:59 PM EDT Hospital Encounter [facility] [address] [place] [address] Pooja Elam MD [address] [facility] [address] [place] [address] [email or web address] Discharge Disposition: Home or Self Care Social History Tobacco Use Types Packs/Day Years [...] on file documented as of this encounter Medications at Time of Discharge albuterol 90 mcg/actuation inhaler inhale 2 puffs by mouth every 6 hours as needed for wheezing 18 g 07/29/2024 atorvastatin (LIPITOR) 20 MG tablet Take 1 tablet (20 mg total) by mouth daily. 90 tablet 3 09/22/2024 BD DEE 2ND GEN PEN NEEDLE 32 gauge x /32 NdleIndications:Typ e 2 diabetes mellitus without complication, without long-term current use of insulin USE 1 PEN NEEDLE ONCE DAILY NEEDED 100 each 08/19/2024 calcium carbonate (CALCIUM 600 ORAL) Take 2 tablets by mouth daily. cetirizine (ZYRTEC) 10 MG tablet Take 10 mg by mouth daily. cholecalciferol (VITAMIN D3) 2,000 unit tablet 2,000 Units daily. colchicine (COLCRYS) 0.6 mg tabletIndications:F amilial Mediterranean fever,Pseudogout of right knee Take 1 tablet (0.6 mg total) by mouth daily. 90 tablet 1 04/02/2024 cyclobenzaprine (FLEXERIL) 5 MG tabletIndications:S acroiliitis,Spinal enthesopathy of lumbosacral region,Spondylolysi s of lumbar region,Disorder of sacrum Take 1 tablet (5 mg total) by mouth 3 (three) times a day as needed (back pain). 270 tablet 3 11/19/2024 EPINEPHrine 0.3 mg/0.3 mL auto-injector famotidine (PEPCID) 40 MG tabletIndications:G astroesophageal reflux disease without esophagitis Take 1 tablet (40 mg total) by mouth 2 (two) times a day. 180 tablet 3 11/19/2024 fluticasone propionate (FLONASE) 50 mcg/actuation nasal sprayIndications:No n-seasonal allergic rhinitis, unspecified trigger USE 2 SPRAY(S) IN EACH NOSTRIL ONCE DAILY NEEDED FOR ALLERGIES 16 g 11 04/17/2023 hydroCHLOROthiazide 25 MG tabletIndications:P rimary hypertension Take 1 tablet by mouth once daily 90 tablet 3 04/14/2024 levothyroxine (SYNTHROID, LEVOTHROID) 125 MCG tabletIndications:A cquired hypothyroidism take 1 tablet by mouth in the morning 90 tablet 3 12/24/2023 loperamide (IMODIUM) 2 mg capsule Take 2 mg by mouth as needed for diarrhea. magnesium 200 mg Tab Take 400 mg by mouth daily. metoprolol succinate (TOPROL-XL) 25 MG 24 hr tabletIndications:H ypertension, unspecified type Take 1 tablet by mouth once daily 90 tablet 3 08/27/2024 nitroglycerin (NITROSTAT) 0.[address] 1 tablet (0.3 mg total) under the tongue every 5 (five) minutes as needed for chest pain. 100 tablet 1 01/31/2021 olopatadine (PATANOL) 0.1 % ophthalmic solution Place 1 drop into each eye 2 (two) times a day. 5 mL 12 11/04/2020 OXYGEN-AIR DELIVERY SYSTEMS MISC Inhale 2 L/min into the lungs nightly. At night OZEMPIC 0.25 mg or 0.5 mg (2 mg/3 mL) subcutaneous injection penIndications:Type 2 diabetes mellitus without complication, without long-term current use of insulin Administer 0.25mg once weekly for 4 weeks then increase to 0.5mg once weekly 3 mL 1 10/28/2024 POTASSIUM ORAL Take 10 mEq by mouth daily. riboflavin, vitamin B2, 400 mg Tab Take by mouth daily. SUMAtriptan (IMITREX) 100 MG tabletIndications:M igraine TAKE 1 TABLET BY MOUTH NEEDED FOR MIGRAINE HEADACHE 12 tablet 5 11/21/2023 TURMERIC ORAL Take 1,500 mg by mouth daily. documented as of this encounter Plan of Treatment Upcoming Encounters Date Type Department Care Team (Late st Contact Info) Description 12/04/2024 Procedure Pass [facility] [address] [place] [address] 01/01/2025 9:30 AM EDT Appointment [facility] [address] [place] [address] Pooja Elam MD [address] [address] 01/08/2025 9:00 AM EDT Nurse Only [facility] [address] [facility] [address] [place] [address] Sivan Montgomery MD, MPH [address] [address] 04/01/2025 8:00 AM EST Office Visit [facility] Rheumatology [address] [place] [address] Alma Delia Castro MD [address] [facility], [address] [place] [address] [email or web address] 05/15/2025 1:20 PM EST Office Visit [facility] [address] 3[address] Floor, [address] [place] [address] Juan Burns MD [address] [facility], [address] [address] 05/26/2025 8:00 AM EST Office Visit [facility] Primary Care [address] [facility] [address] [place] [address] Pooja Elam MD [address] [address] 06/08/2025 9:00 AM EST Office Visit [facility] [address] [place] [address] Santa Lewis MD [address] [facility], 1st [place] [address] 06/15/2025 9:00 AM EST Office Visit [facility] [address] [facility] 3rd Floor, [address] [place] [address] Anup Ward MD, MS [address] [facility], [address] [place] [address] [email or web address] 11/24/2025 9:00 AM EDT Office Visit [facility] [address] [facility] [address] [place] [address] Pooja Elam MD [address] [facility] [address] [place] [address] documented as of this encounter Procedures Procedure Name Priority Date/Time Associated Diagnosis Comments MICROALBUMIN/CREATINI NE RATIO, RANDOM URINE Routine 12/04/2024 11:40 AM EDT Type 2 diabetes mellitus without complication, with long-term current use of insulin AG RATIO Routine 12/04/2024 11:32 AM EDT INDIRECT BILIRUBIN Routine 12/04/2024 11 :32 AM EDT COMPREHENSIVE METABOLIC PANEL Routine 12/04/2024 11:32 AM EDT Familial Mediterranean fever Pseudogout of right knee On colchicine therapy SEDIMENTATION RATE (ESR) Routine 12/04/2024 11:32 AM EDT Familial Mediterranean fever Pseudogout of right knee On colchicine therapy CBC AND DIFFERENTIAL Routine 12/04/2024 11:32 AM EDT Familial Mediterranean fever Pseudogout of right knee On colchicine therapy C-REACTIVE PROTEIN Routine 12/04/2024 11 :32 AM EDT Familial Mediterranean fever Pseudogout of right knee On colchicine therapy CPK (CREATINE KINASE) Routine 12/04/2024 11:32 AM EDT Familial Mediterranean fever Pseudogout of right knee On colchicine therapy BILIRUBIN, DIRECT Routine 12/04/2024 11: 32 AM EDT documented in this encounter Results * Microalbumin/creatinine ratio, random urine (12/04/2024 11:40 AM EDT) URINE MICROALBUMIN <1.2 0 - 2.3 mg/dL [facility] URINE CREATININE 114 mg/dL [facility] MICROALB/CRE RATIO NOT CALCULATED 0 - 20 mg/g Cre [facility] Comment:due to Microalbumin <1.2 Urine (Urine) 12/04/2024 11: 40 AM EDT 12/04/2024 11:41 AM EDT us Pooja Elam MD URINE ORDERABLES Final Re sult [address] [address] * Bilirubin, direct (12/04/2024 11:32 AM EDT) DIRECT BILIRUBIN <0.1 0.0 - 0.2 mg/dL [facility] 12/04/2024 11:3 2 AM EDT 12/04/2024 3:35 PM EDT us Pooja Elam MD LAB BLOOD ORDERABLES Charmaine l Result Performing Organization Address City/[facility]/ZIP Co de Phone Number [address] [address] * Indirect Bilirubin (12/04/2024 11:32 AM EDT) Bilirubin (Indirect) NOT CALCULATED 0 - 1.5 mg/dL [facility] 12/04/2024 11:3 2 AM EDT 12/04/2024 3:35 PM EDT Pooja Elam MD LAB BLOOD ORDERABLES Charmaine l Result [address] [address] * Ag Ratio (12/04/2024 11:32 AM EDT) A/G Ratio 1.36 1.00 - 4.80 RATIO [facility] 12/04/2024 11:3 2 AM EDT 12/04/2024 3:35 PM EDT us Pooja Elam MD LAB BLOOD ORDERABLES Charmaine l Result Performing Organization Address City/[facility]/ZIP Co de Phone Number [address] [address] * (ABNORMAL) Comprehensive metabolic panel (12/04/2024 11:32 AM EDT) SODIUM 133 133 - 146 mmol/L [facility] POTASSIUM 3.6 3.3 - 5.1 mmol/L [facility] CHLORIDE 95(L) 96 - 108 mmol/L [facility] CO2 26 21 - 35 mmol/L [facility] BUN 16 6 - 19 mg/dL [facility] CREATININE 1.10 0.5 - 1.5 mg/dL [facility] GLUCOSE 124(H) 70 - 99 mg/dL [facility] ALBUMIN 4.5 3.9 - 4.8 g/dL [facility] TOTAL PROTEIN 7.8 6.5 - 8.0 g/dL [facility] CALCIUM 9.5 8.4 - 10.3 mg/dL [facility] ALKALINE PHOSPHATASE 94 39 - 117 U/L [facility] TOTAL BILIRUBIN 0.3 0.0 - 1.2 mg/dL [facility] AST 27 0 - 37 U/L [facility] ALT 21 0 - 40 U/L [facility] GLOBULIN 3.3 1 - 4.8 g/dL [facility] EGFR 53(L) >59 mL/min/1.7 3m2 [facility] Comment:Estimated glomerular filtration rate calculated using the CKD-EPI refit equation. ANION GAP 16 10 - 20 mmol/L [facility] Blood 12/04/2024 11:3 2 AM EDT 12/04/2024 3:35 PM EDT us Alma Delia Castro MD LAB BLOOD ORDERABLES Fin al Result [address] [address] * (ABNORMAL) C-Reactive Protein (12/04/2024 11:32 AM EDT) C REACTIVE PROTEIN 12.3(H) 0.0 - 4.0 mg/L [facility] Blood 12/04/2024 11:3 2 AM EDT 12/04/2024 3:35 PM EDT us Alma Delia Castro MD LAB BLOOD ORDERABLES Fin al Result Performing Organization Address [facility]/ZIP Co de Phone Number [address] [address] * Sedimentation rate (ESR) (12/04/2024 11:32 AM EDT) ESR 6 0 - 30 mm/h [facility] Blood 12/04/2024 11:3 2 AM EDT 12/04/2024 3:35 PM EDT us Alma Delia Castro MD LAB BLOOD ORDERABLES Fin al Result Performing Organization Address City/[facility]/ZIP Co de Phone Number [address] [address] * (ABNORMAL) CBC and differential (12/04/2024 11:32 AM EDT) WBC 11.54(H) 4.00 - 11.00 K/uL [facility] RBC 4.28 4.00 - 5.20 M/uL [facility] HGB 13.6 12.0 - 16.0 g/dL [facility] HCT 41.3 36.0 - 46.0 % [facility] PLT 336 150 - 450 K/uL [facility] MCV 96.5 80.0 - 100.0 fL [facility] MCH 31.8(H) 27.0 - 31.0 pg [facility] MCHC 32.9 32.0 - 36.0 g/dL [facility] RDW 13.3 11.5 - 14.5 % [facility] MPV 12.1(H) 8.4 - 12.0 fL [facility] NRBC 0.00 0.00 /100 WBCs [facility] ABSOLUTE NRBC 0.00 0.00 K/uL [facility] DIFF METHOD Auto [facility] NEUTS 71.3 48.0 - 76.0 % [facility] LYMPHS 20.9 18.0 - 41.0 % [facility] MONOS 5.1 4.0 - 11.0 % [facility] EOS 1.6 0.0 - 5.0 % [facility] BASOS 0.5 0.0 - 1.5 % [facility] Granulocytes, immature (%) 0.6 0.0 - 0.9 % [facility] ABSOLUTE NEUTS 8.22(H) 1.92 - 7.60 K/uL [facility] ABSOLUTE LYMPHS 2.41 0.72 - 4.10 K/uL [facility] ABSOLUTE MONOS 0.59 0.16 - 1.10 K/uL [facility] ABSOLUTE EOS 0.19 0.00 - 0.50 K/uL [facility] ABSOLUTE BASOS 0.06 0.00 - 0.15 K/uL [facility] Granulocytes, immature 0.07 0.00 - 0.09 K/uL [facility] Blood 12/04/2024 11:3 2 AM EDT 12/04/2024 3:35 PM EDT us Alma Delia Castro MD LAB BLOOD ORDERABLES Fin al Result [address] [address] * CPK (creatine kinase) (12/04/2024 11:32 AM EDT) CREATINE KINASE 62 21 - 215 U/L [facility] Blood 12/04/2024 11:3 2 AM EDT 12/04/2024 3:35 PM EDT us Alma Delia Castro MD LAB BLOOD ORDERABLES Fin al Result Performing Organization Address City/[facility]/ZIP Co de Phone Number [address] [address] documented in this encounter Visit Diagnoses Diagnosis Familial Mediterranean fever Pseudogout of right knee On colchicine therapy Intractable abdominal pain Syncope and collapse Type 2 diabetes mellitus without complication, with long-term current use of insulin documented in this encounter Additional Health Concerns Assessment Noted Time PHQ-2 Depression Total Score: 0 11/21/19 24 9:11 AM EDT documented as of this encounter Care Teams Professional Soccer Player Relationship Specialty Start Date End Date Sivan Montgomery MD, MPH [address] [facility] [address] [place] [address] [email or web address] PCP - General Family Medicine 08/20/20 Kathleen Lopez MD [address] [facility], [address] [place] [address] [email or web address] Historical LMR Provider 01/30/17 Santa Lewis MD [address] [place] [address], 1st [place] [address] [email or web address] Endocrinology 10/26/20 Alma Delia Castro MD [address] [place] [address], [address] [place] [address] Rheumatology 02/20/22 Archie Ramos MD [address] [place] [address] [address] [place] [address] Orthopedic Surgery 12/24/23 Sung Jane MD [address] [place] [address] Neurology 12/24/23 José Hernández MD [address] [place] [address] [address] [place] [address] Neurosurgery 12/24/23 Ruy Darling MD [address] [place] [address] [email or web address] Intensive Care 12/24/23 documented as of this encounter Additional Source Comments The information contained in this document represents components of the legal health record. It is not the complete legal health record.[facility]
--- OUTSIDE RECORDS SUMMARY | 2024-12-08 09:00 | XMS_ITS | Encounter Summary ---
Author Organization [facility] Address [address] [facility] [address] [place] [address] Phone Care Team Providers Care Deliverer Merchandise Name Role Phone Kathleen Lopez MD Unavailable Sivan Montgomery MD, MPH Primary Care Provid er Santa Lewis MD Unavailable Alma Delia Castro MD Unavailable Archie Ramos MD Unavailable Sung Jane MD Unavai lable José Hernández MD Unavailable Ruy Darling MD Unavailable [phone] Encounter Details Date Type Department Care Team (Late st Contact Info) Description 12/08/2024 9:00 AM EDT [facility] [place] [facility] [address] [facility] [address] [place], [place] [phone] Sivan Montgomery MD, MPH [address] [facility] [address] [place], [place] [phone] [email or web address] Social History Tobacco Use Types Packs/Day Years [...] 12/04/2024 Procedure Pass [facility] 30 [place] [address] 01/01/2025 9:30 AM EDT Appointment [facility] Echo Lab 30 [place] [address] Pooja Elam MD [address] [address] 01/08/2025 9:00 AM EDT Nurse Only [facility] [place] [facility] 15 [facility] 201 [place] [address] Sivan Montgomery MD, MPH [address] [address] 04/01/2025 8:00 AM EST Office Visit [facility] Rheumatology [address] [place] [address] Alma Delia Castro MD 22 [facility], [facility] 203 [place] [address] [email or web address] 05/15/2025 1:20 PM EST Office Visit [facility] [address], [address] [place] [address] Juan Burns MD 22 [facility], [address] [place] [address] 05/26/2025 8:00 AM EST Office Visit [facility] Primary Care [address] [facility] 201 [place] [address] Pooja Elam MD [address] [address] 06/08/2025 9:00 AM EST Office Visit [facility] 22 [place] [address] Santa Lewis MD [address] [facility], 1st [place] [address] 06/15/2025 9:00 AM EST Office Visit [facility] [address] [facility] 3rd Floor, [address] [place] [address] Anup Ward MD, MS [address] [facility], [address] [address] [email or web address] 11/24/2025 9:00 AM EDT Office Visit [facility] Primary Care [address] [facility] 201 [place] [address] Pooja Elam MD [address] [address] documented as of this encounter Visit Diagnoses [...] documented as of this encounter Care Teams Deliverer Merchandise Relationship Specialty Start Date End Date Sivan Montgomery MD, MPH [address] [facility] [address] [place] [address] PCP - General Family Medicine 08/20/20 Kathleen Lopez MD [address] [facility], [address] [place] [address] Historical LMR Provider 01/30/17 Santa Lewis MD [address] [facility], 1st [place] [address] Endocrinology 10/26/20 Alma Delia Castro MD [address] [facility], [address] [place] [address] Rheumatology 02/20/22 Archie Rmaos MD [address] [place] [address] [address] [place] [address] Orthopedic Surgery 12/24/23 Sung Jane MD [address] [place] [address] 150 [place] [address] Neurology 12/24/23 José Hernández MD [address] [place] [address] [address] [place] [address] Neurosurgery 12/24/23 Ruy Darling MD [address] [place] [address] [email or web address] Intensive Care 12/24/23 documented as of this encounter Additional Source Comments The information contained in this document represents components of the legal health record. It is not the complete legal health record.[facility]
--- OUTSIDE RECORDS SUMMARY | 2024-12-09 07:39 | XMS_ITS | Encounter Summary ---
Author Organization [facility] Address [address] [facility] [address] [place] [address] Phone Care Team Providers Care Body Trimmer Name Role Phone Weston Hamilton DO Primary Care Provider Ruy Darling MD Unavailable [phone] Adin Becerra MD Unavailable [email or web address] Kathleen Lopez MD Unavailable Weston Hamilton DO Unavailable [phone] Dionne Latif MD Unavailable Shelby Keenan DO Primary Care Provider [phone] Sivan Montgomery MD, MPH Primary Care Provid er Santa Lewis MD Unavailable [phone] Alma Delia Castro MD Unavailable Archie Ramos MD Unavailable [phone] Sung Jane MD Unavailable José Hernández MD Unavailable Ruy Darling MD Unavailable [phone] Encounter Details Date Type Department Care Team (Late st Contact Info) Description 08/23/2017 Ancillary Orders [address] [address] Uriel Jenkins DO 4 [facility] Orthopedics & Sports Medicine, [place] [address] [email or web address] Left shoulder pain, unspecified chronicity Social History Tobacco Use Types Packs/Day Years Used Date Smoking Tobacco: Never Smokeless Tobacco: Never Alcohol Use Standard Drinks/Week Comments No 0 (1 standard drink = 0.6 oz [...] 12/04/2024 Procedure Pass [facility] 30 [place] [address] 01/01/2025 9:30 AM EDT Appointment [facility] 30 [place] [address] Pooja Elam MD [address] [address] 01/08/2025 9:00 AM EDT Nurse Only [facility] [address] [address] Sivan Montgomery MD, MPH [address] [address] 04/01/2025 8:00 AM EST Office Visit [facility] Rhe[facility] [address] [place] [address] KlAlma Delia Barrett MD [address] [facility], [address] [place] [address] [email or web address] 05/15/2025 1:20 PM EST Office Visit [facility] [address] [facility] 3rd Floor, [address] [place] [address] Juan Burns MD [address] [facility], [address] [place] [address] 05/26/2025 8:00 AM EST Office Visit [facility] 15 [facility] 201 [place] [address] Pooja Elam MD [address] [place] [address]. 201 [place] [address] 06/08/2025 9:00 AM EST Office Visit [facility] 22 [place] [address] Santa Lewis MD 22 [facility], 1st [place] [address] 06/15/2025 9:00 AM EST Office Visit [facility] [address] 3rd Floor, [address] [place] [address] Anup Ward MD, MS [address] [facility], [address] [place] [address] 11/24/2025 9:00 AM EDT Office Visit [facility] Primary Care [address] [place] [address] Pooja Elam MD 15 [facility] [address] [place] [address] [email or web address] documented as of this encounter Results * XR SHOULDER 2 VIEWS (LEFT) (08/27/2017 10:08 AM EDT) Narrative Charissa Davis - 08/27/2017 10:08 AM EDT This image report has been auto-finalized and has not been read by a Radiologist. Interpretation has been included in the provider encounter note for this date of service. us Uriel Jenkins DO IMG XR UPPER EXTREMITY Charmaine l Result documented in this encounter Visit Diagnoses Diagnosis Left shoulder pain, unspecified chronicity Left shoulder pain, unspecified chronicity documented in this encounter Care Teams Body Trimmer Relationship Specialty Start Date End Date Weston Hamilton DO PCP - General 10/14/13 07/10/18 Shelby Keenan DO [address] [place] [address] [email or web address] PCP - General Family Medicine 07/11/18 08/19/20 Sivan Montgomery MD, MPH [address] [place] [address] [email or web address] PCP - General Family Medicine 08/20/20 Ruy Darling MD [address] [place] [address] [email or web address] Historical LMR Provider 01/30/17 12/23/23 Adin Becerra MD [email or web address] Historical LMR Provider 01/30/17 02/19/22 Kathleen Lopez MD [address] [place] [address] [address] [place] [address] Historical LMR Provider 01/30/17 Weston Hamilton DO [address] [place] [address] 201 [place] [address] Historical LMR Provider 01/30/1702/19 [place] [address] [email or web address] Historical LMR Provider 01/30/17 10/24/20 Santa Lewis MD 22 [facility], 1st [place] [address] Endocrinology 10/26/20 Alma Delia Castro MD [address] [place] [address], [facility] 203 [place] [address] Rheumatology 02/20/22 Archie Ramos MD [address] [place] [address] 203 [place] [address] Orthopedic Surgery 12/24/23 Sung Jane MD [address] [place] [address] Neurology 12/24/23 José Hernández MD [address] [place] [address] 101 [place] [address] Neurosurgery 12/24/23 Ruy Darling MD [address] [place] [address] [email or web address] Intensive Care 12/24/23 documented as of this encounter Additional Source Comments The information contained in this document represents components of the legal health record. It is not the complete legal health record.[facility]
--- OUTSIDE RECORDS SUMMARY | 2024-12-09 07:39 | XMS_ITS | Encounter Summary ---
Author Organization [facility] Address [address] [facility] [address] [place] [address] Phone Care Team Providers Care Commercial Baking Teacher Name Role Phone Weston Hamilton DO Primary Care Provider Ruy Darling MD Unavailable [phone] Adin Becerra MD Unavailable [email or web address] Kathleen Lopez MD Unavailable Weston Hamilton DO Unavailable [phone] Dionne Latif MD Unavailable Shelby Keenan DO Primary Care Provider [phone] Sivan Montgomery MD, MPH Primary Care Provid er Santa Lewis MD Unavailable [phone] Alma Delia Castro MD Unavailable Archie Ramos MD Unavailable Sung Jane MD Unavailable José Hernández MD Unavailable Ruy Darling MD Unavailable [phone] Encounter Details Date Type Department Care Team (Latest Contact Info) Description 07/11/2017 Transcribe Orders [facility] [address] [place] [address] Ashwin Almonte MD [address] [facility], [address] [place] [address] [email or web address] Weakness (Primary Dx); Nonintractable headache, unspecified chronicity pattern, unspecified headache type Social History Tobacco Use Types Packs/Day Years [...] st Contact Info) Description 12/04/2024 Procedure Pass [facility] 30 [place] [address] 01/01/2025 9:30 AM EDT Appointment [facility] 30 [place] [address] Pooja Elam MD [address] [address] 01/08/2025 9:00 AM EDT Nurse Only [facility] [address] [address] Sivan Montgomery MD, MPH [address] [address] 04/01/2025 8:00 AM EST Office Visit [facility] Rheumatology [address] [place] [address] Alma Delia Castro MD [address] [facility], [address] [place] [address] [email or web address] 05/15/2025 1:20 PM EST Office Visit [facility] [address] 3rd Floor, [address] [place] [address] Juan Burns MD 22 [facility], [address] [place] [address] 05/26/2025 8:00 AM EST Office Visit [facility] Primary Care [address] [facility] [address] [place] [address] Pooja Elam MD [address] [place] [address]. 201 [place] [address] 06/08/2025 9:00 AM EST Office Visit [facility] 22 [place] [address] Santa Lewis MD 22 [facility], 1st [place] [address] 06/15/2025 9:00 AM EST Office Visit [facility] [address] 3rd Floor, [address] [place] [address] Anup Ward MD, MS 22 [facility], [address] [place] [address] 11/24/2025 9:00 AM EDT Office Visit [facility] Care 15 [facility] [address] [place] [address] Pooja Elam MD 15 [facility] [address]. [address] [place] [address] [email or web address] documented as of this encounter Results * Sedimentation rate (ESR) (07/11/2017 3:15 PM EDT) ESR 16 0 - 30 mm/h [facility] Blood 07/11/2017 3:15 PM EDT 07/11/2017 3:20 PM EDT us Ashwin Almonte MD LAB BLOOD ORDERABLES Final R esult [facility] 30 [place] [address] documented in this encounter Visit Diagnoses Diagnosis Weakness- Primary Other malaise and fatigue Nonintractable headache, unspecified chronicity pattern, unspecified headache type documented in this encounter Care Teams Commercial Baking Teacher Relationship Specialty Start Date End Date Weston Hamilton DO PCP - General 10/14/13 07/10/18 Shelby Keenan DO [address] [place] [address] [email or web address] PCP - General Family Medicine 07/11/18 08/19/20 Sivan Montgomery MD, MPH [address] [place] [address] [email or web address] PCP - General Family Medicine 08/20/20 Ruy Darling MD [address] [place] [address] [email or web address] Historical LMR Provider 01/30/17 12/23/23 Adin Becerra MD [email or web address] Historical LMR Provider 01/30/17 02/19/22 Kathleen Lopez MD 22 [facility], [address] [place] [address] Historical LMR Provider 01/30/17 Weston Hamilton DO [address] [place] [address] 201 [place] [address] Historical LMR Provider 01/30/1702/19 [place] [address] [email or web address] Historical LMR Provider 01/30/17 10/24/20 Santa Lewis MD 22 [facility], 1st [place] [address] Endocrinology 10/26/20 Alma Delia Castro MD 22 [facility], [address] [place] [address] Rheumatology 02/20/22 Archie Ramos MD [address] [place] [address] [address] [place] [address] Orthopedic Surgery 12/24/23 Sung Jane MD [address] [place] [address] 150 [place] [address] Neurology 12/24/23 José Hernández MD [address] [place] [address] [address] [place] [address] Neurosurgery 12/24/23 Ruy Darling MD [address] [place] [address] [email or web address] Intensive Care 12/24/23 documented as of this encounter Additional Source Comments The information contained in this document represents components of the legal health record. It is not the complete legal health record.[facility]
--- OUTSIDE RECORDS SUMMARY | 2024-12-09 07:39 | XMS_ITS | Encounter Summary ---
Author Organization [facility] Address [address] [facility] [address] [place] [address] Phone Care Team Providers Care Executive Kitchen Manager Name Role Phone Weston Hamilton DO Primary Care Provider Ruy Darling MD Unavailable [phone] Adin Becerra MD Unavailable [email or web address] Kathleen Lopez MD Unavailable Weston Hamilton DO Unavailable [phone] Dionne Latif MD Unavailable Shelby Keenan DO Primary Care Provider [phone] Sivan Montgomery MD, MPH Primary Care Provid er Santa Lewis MD Unavailable [phone] Alma Delia Castro MD Unavailable [phone] Archie Ramos MD Unavailable Sung Jane MD Unavailable José Hernández MD Unavailable Ruy Darling MD Unavailable Encounter Details Date Type Department Care Team (Latest Contact Info) Description 04/30/2017 Ancillary Orders [facility] Orthopedics & Sports Medicine [address] [place] [address] Quin Kendall MD [address] [place] [address] Orthopedics & Sports Medicine, [facility] [place] [address] [email or web address] Shoulder pain, unspecified chronicity, unspecified laterality Social History Tobacco Use Types Packs/Day Years [...] 12/04/2024 Procedure Pass [facility] 30 [place] [address] 01/01/2025 9:30 AM EDT Appointment [facility] 30 [place] [address] Pooja Elam MD [address] [address] 01/08/2025 9:00 AM EDT Nurse Only [facility] [place] [facility] [address] [address] Sivan Montgomery MD, MPH [address] [address] 04/01/2025 8:00 AM EST Office Visit [facility] Rheumatology 22 [place] [address] Alma Delia Castro MD 22 [facility], [address] [place] [address] [email or web address] 05/15/2025 1:20 PM EST Office Visit [facility] 22 [facility] 3rd Floor, [address] [place] [address] Juan Burns MD 22 [facility], [address] [place] [address] 05/26/2025 8:00 AM EST Office Visit [facility] [address] [facility] [address] [place] [address] Pooja Elam MD [address] [place] [address]. 201 [place] [address] 06/08/2025 9:00 AM EST Office Visit [facility] Center 22 [place] [address] Santa Lewis MD 22 [facility], 1st [place] [address] 06/15/2025 9:00 AM EST Office Visit [facility] [address] [place] [address] Dr 3rd Floor, [address] [place] [address] Anup Ward MD, MS 22 [facility], [address] [place] [address] 11/24/2025 9:00 AM EDT Office Visit [facility] [address] [facility] [address] [place] [address] Pooja Elam MD 15 [facility] [address] [place] [address] [email or web address] Pending Results Name Type Priority Associated Diagnoses Date /Time FL Guidance Needle Placement Non-Spine Imaging Routine Shoulder pain, unspecified chronicity, unspecified laterality 05/01/2017 9:10 AM EST Scheduled Orders Name Type Priority Associated Diagnoses Orde r Schedule FL Guidance Needle Placement Non-Spine Imaging Routine Shoulder pain, unspecified chronicity, unspecified laterality Expected: 04/30/2017, Expires: 04/30/2018 documented as of this encounter Visit Diagnoses Diagnosis Shoulder pain, unspecified chronicity, unspecified laterality documented in this encounter Care Teams Executive Kitchen Manager Relationship Specialty Start Date End Date Weston Hamilton DO PCP - General 10/14/13 07/10/18 Shelby Keenan DO [address] [place] [address] [email or web address] PCP - General Family Medicine 07/11/18 08/19/20 Sivan Montgomery MD, MPH [address] [address] [email or web address] PCP - General Family Medicine 08/20/20 Ruy Darling MD [address] [place] [address] [email or web address] Historical LMR Provider 01/30/17 12/23/23 Adin Becerra MD [email or web address] Historical LMR Provider 01/30/17 02/19/22 Kathleen Lopez MD 22 [facility], [address] [place] [address] [email or web address] Historical LMR Provider 01/30/17 Weston Hamilton DO 42 [facility] 201 [place] [address] Historical LMR Provider 01/30/1702/19 [place] [address] [email or web address] Historical LMR Provider 01/30/17 10/24/20 Santa Lewis MD 22 [facility], 1st [place] [address] Endocrinology 10/26/20 Alma Delia Castro MD 22 [facility], [address] [place] [address] Rheumatology 02/20/22 Archie Ramos MD [address] [place] [address] [address] [place] [address] Orthopedic Surgery 12/24/23 Sung Jane MD [address] [place] [address] 150 [place] [address] Neurology 12/24/23 José Hernández MD [address] [place] [address] [address] [place] [address] Neurosurgery 12/24/23 Ruy Darling MD [address] [place] [address] 2nd [place] [address] Intensive Care 12/24/23 documented as of this encounter Additional Source Comments The information contained in this document represents components of the legal health record. It is not the complete legal health record.[facility]
--- OUTSIDE RECORDS SUMMARY | 2024-12-09 07:39 | XMS_ITS | Encounter Summary ---
Author Organization [facility] Address [address] [facility] [address] [place] [address] Phone Care Team Providers Care Lapidary Apprentice Name Role Phone Weston Hamilton DO Primary Care Provider Ruy Darling MD Unavailable [phone] Adin Becerra MD Unavailable [email or web address] Kathleen Lopez MD Unavailable Weston Hamilton DO Unavailable [phone] Dionne Latif MD Unavailable Shelby Keenan DO Primary Care Provider [phone] Sivan Montgomery MD, MPH Primary Care Provid er Santa Lewis MD Unavailable [phone] Alma Delia Castro MD Unavailable [phone] Archie Ramos MD Unavailable [phone] Sung Jane MD Unavailable José Hernández MD Unavailable Ruy Darling MD Unavailable [phone] Encounter Details Date Type Department Care Team (Late st Contact Info) Description 02/13/2017 Procedure Pass [facility] 30 [place] [address] Social History Tobacco Use Types Packs/Day Years Used Date Smoking Tobacco: Never Comments Unknown Sex and Gender Information Value Date Recorded Sex Assigned at Female 10/25/2020 8:18 AM EDT Legal Sex Female 7:31 PM EST Gender Identity Female 10/25/2020 8:18 AM EDT Sexual Orientation Straight 10/25/2020 8: 18 AM EDT documented as of this encounter Last Filed Vital Signs Vital Sign Reading Time Taken Comments Blood Pressure - - Pulse - - Temperature - - Respiratory Rate - - Oxygen Saturation - - Inhaled Oxygen Concentration - - Weight 72.6 kg (160 lb) 02/15/2017 7:16 PM EDT Height 157.5 cm (5' 2 ) 02/15/2017 7:16 PM EDT Body Mass Index 29.26 02/15/2017 7:16 PM EDT documented in this encounter Plan of Treatment Upcoming Encounters Date Type Department Care Team (Late st Contact Info) Description 12/04/2024 Procedure Pass [facility] 30 [place] [address] 01/01/2025 9:30 AM EDT Appointment [facility] 30 [place] [address] Pooja Elam MD [address] [place] [address] 01/08/2025 9:00 AM EDT Nurse Only [facility] [address] [address] Sivan Montgomery MD, MPH [address] [address] 04/01/2025 8:00 AM EST Office Visit [facility] Rheumatology [address] [place] [address] Alma Delia Castro MD [address] [place] [address], [address] [place] [address] [email or web address] 05/15/2025 1:20 PM EST Office Visit [facility] 22 [facility] 3rd Floor, [address] [place] [address] Juan Burns MD 22 [facility], [address] [place] [address] 05/26/2025 8:00 AM EST Office Visit [facility] Primary Care 15 [facility] 201 [place] [address] Pooja Elam MD 15 [facility] [place] [address] 06/08/2025 9:00 AM EST Office Visit [facility] 22 [place] [address] Santa Lewis MD 22 [facility], 1st [place] [address] 06/15/2025 9:00 AM EST Office Visit [facility] 22 [facility] 3rd Floor, [address] [place] [address] Anup Ward MD, MS 22 [facility], [address] [place] [address] 11/24/2025 9:00 AM EDT Office Visit [facility] Primary Care 15 [facility] 201 [place] [address] Pooja Elam MD 15 [facility] Viraj. [address] [place] [address] documented as of this encounter Visit Diagnoses Not on filedocumented in this encounter Care Teams Lapidary Apprentice Relationship Specialty Start Date End Date Weston Hamilton DO PCP - General 10/14/13 07/10/18 Shelby Keenan DO [address] [place] [address] [email or web address] PCP - General Family Medicine 07/11/18 08/19/20 Sivan Montgomery MD, MPH [address] [place] [address] [email or web address] PCP - General Family Medicine 08/20/20 Ruy Darling MD [address] [place] [address] [email or web address] Historical LMR Provider 01/30/17 12/23/23 Adin Becerra MD [email or web address] Historical LMR Provider 01/30/17 02/19/22 Kathleen Lopez MD [address] [place] [address] [email or web address] Historical LMR Provider 01/30/17 Weston Hamilton DO [address] [place] [address] Historical LMR Provider 01/30/1702/19 [place] [address] [email or web address] Historical LMR Provider 01/30/17 10/24/20 Santa Lewis MD 22 [facility], 1st [place] [address] Endocrinology 10/26/20 Alma Delia Castro MD 22 [facility], [address] [place] [address] Rheumatology 02/20/22 Archie Ramos MD [address] [place] [address] 203 [place] [address] Orthopedic Surgery 12/24/23 Sung Jane MD [address] [place] [address] Neurology 12/24/23 José Hernández MD [address] [place] [address] [place] [address] Neurosurgery 12/24/23 Ruy Darling MD [address] [place] [address] Intensive Care 12/24/23 documented as of this encounter Additional Source Comments The information contained in this document represents components of the legal health record. It is not the complete legal health record.[facility]
--- OUTSIDE RECORDS SUMMARY | 2024-12-09 07:39 | XMS_ITS | Encounter Summary ---
Author Organization [facility] Address [address] [facility] [address] [place] [address] Phone Care Team Providers Care Packing And Shipping Clerk Name Role Phone Ruy Darling MD Unavailable [phone] Adin Becerra MD Unavailable [email or web address] Kathleen Lopez MD Unavailable Weston Hamilton DO Unavailable [phone] Dionne Latif MD Unavailable Shelby Keenan DO Primary Care Provider [phone] Sivan Montgomery MD, MPH Primary Care Provid er Santa Lewis MD Unavailable [phone] Alma Delia Castro MD Unavailable [phone] Archie Ramos MD Unavailable [phone] Sung Jane MD Unavailable José Hernández MD Unavailable Ruy Darling MD Unavailable [phone] Encounter Details Date Type Department Care Team (Late st Contact Info) Description 06/03/2019 Transcribe Orders [facility] [address] [place] [address] Weston Hamilton, DO 80 [facility] 101 [place] [address] Opioid type dependence, continuous (Primary Dx) Social History Tobacco Use Types Packs/Day Years [...] 12/04/2024 Procedure Pass [facility] 30 [place] [address] 01/01/2025 9:30 AM EDT Appointment [facility] Echo [facility] 30 [place] [address] Pooja Elam MD [address] [address] 01/08/2025 9:00 AM EDT Nurse Only [facility] 15 [facility] 201 [place] [address] Sivan Montgomery MD, MPH 15 [facility] 201 [place] [address] 04/01/2025 8:00 AM EST Office Visit [facility] Rheumatology 22 [place] [address] Alma Delia Castro MD 22 [facility], [facility] 203 [place] [address] [email or web address] 05/15/2025 1:20 PM EST Office Visit [facility] [address] 3[address] Floor, [address] [place] [address] Juan Burns MD 22 [facility], [address] [place] [address] 05/26/2025 8:00 AM EST Office Visit [facility] Primary Care [address] [facility] [address] [place] [address] Pooja Elam MD 15 [facility] Viraj. [address] [place] [address] 06/08/2025 9:00 AM EST Office Visit [facility] 22 [place] [address] Santa Lewis MD 22 [facility], 1st [place] [address] 06/15/2025 9:00 AM EST Office Visit [facility] [address] 3[address] Floor, [address] [place] [address] Anup Ward MD, MS 22 [facility], [address] [place] [address] 11/24/2025 9:00 AM EDT Office Visit [facility] [address] [place] [address] Pooja Elam MD [address] [address] documented as of this encounter Results * Buprenorphine, urine (06/03/2019 3:15 PM EST) Buprenorphine Negative Cutoff: 5 NG/ML [facility] Comment: (NOTE) ADDITIONAL INFORMATION This test was developed and its performance characteristics determined by [facility] in a manner consistent with CLIA requirements. This test has not been cleared or approved by the U.S. Food and Drug Administration. Urine (Urine) 06/03/2019 3:1 5 PM EST 06/03/2019 3:25 PM EST [facility] URINE ORDERABLES Final Result Performing Organization Address [facility] Co de Phone Number [facility] [address] [place] [address] * Toxicology screen, urine (06/03/2019 3:15 PM EST) Pathologist [facility] URINE CANNABINOIDS NONE DETECTED NONE DETECTED [facility] Comment:Cutoff: 50 ng/mL URINE COCAINE METAB NONE DETECTED NONE DETECTED [facility] Comment:Cutoff: 300 ng/mL URINE AMPHETAMINES NONE DETECTED NONE DETECTED [facility] Comment:Cutoff: 1000 ng/mL URINE METHADONE NONE DETECTED NONE DETECTED [facility] Comment:Cutoff: 300 ng/mL URINE OPIATES NONE DETECTED NONE DETECTED [facility] Comment:Cutoff: 300 ng/mL URINE PHENCYCLIDINE NONE DETECTED NONE DETECTED [facility] Comment:Cutoff: 25 ng/mL URINE OXYCODONE NONE DETECTED NONE DETECTED [facility] Comment:Cutoff: 300 ng/ml URINE BARBITURATES NONE DETECTED NONE DETECTED [facility] Comment:Cutoff: 200 ng/mL URINE BENZODIAZEPINE NONE DETECTED NONE DETECTED [facility] Comment: Cutoff: 200 ng/mL INTERPRETATION FOR TOXICOLOGY PANEL: These results are unconfirmed and should be used for Medical Treatment purposes only. Urine (Urine) 06/03/2019 3:1 5 PM EST 06/03/2019 3:24 PM EST [facility] URINE ORDERABLES Final Result Performing Organization Address City/[facility] Co de Phone Number [facility] 30 [place] [address] documented in this encounter Visit Diagnoses Diagnosis Opioid type dependence, continuous- Primary documented in this encounter Additional Health Concerns Assessment Noted Time PHQ-2 Depression Total Score: 0 09/24/19 19 9:43 AM EDT documented as of this encounter Care Teams Packing And Shipping Clerk Relationship Specialty Start Date End Date Shelby Keenan DO [address] [place] [address] [email or web address] PCP - General Family Medicine 07/11/18 08/19/20 Sivan Montgomery MD, MPH [address] [place] [address] [email or web address] PCP - General Family Medicine 08/20/20 Ruy Darling MD [address] [place] [address] [email or web address] Historical LMR Provider 01/30/17 12/23/23 Adin Becerra MD [email or web address] Historical LMR Provider 01/30/17 02/19/22 Kathleen Lopez MD 22 [facility], [address] [place] [address] [email or web address] Historical LMR Provider 01/30/17 Weston Hamilton DO [address] [place] [address] Historical LMR Provider 01/30/1702/19 [place] [address] [email or web address] Historical LMR Provider 01/30/17 10/24/20 Santa Lewis MD 22 [facility], 1st [place] [address] Endocrinology 10/26/20 Alma Delia Castro MD 22 [facility], [address] [place] [address] Rheumatology 02/20/22 Archie Ramos MD [address] [place] [address] 203 [place] [address] Orthopedic Surgery 12/24/23 Sung Jane MD [address] [place] [address] Neurology 12/24/23 José Hernández MD [address] [place] [address] [place] [address] Neurosurgery 12/24/23 Ruy Darling MD [address] [place] [address] Intensive Care 12/24/23 documented as of this encounter Additional Source Comments The information contained in this document represents components of the legal health record. It is not the complete legal health record.[facility]
--- OUTSIDE RECORDS SUMMARY | 2024-12-09 07:39 | XMS_ITS | Encounter Summary ---
Author Organization [facility] Address [address] [address] [place] [address] Phone Care Team Providers Care Paint Grinder Stone Mill Name Role Phone Weston Hamilton DO Primary Care Provider [phone] Ruy Darling MD Unavailable [phone] Adin Becerra MD Unavailable [email or web address] Kathleen Lopez MD Unavailable Weston Hamilton DO Unavailable [phone] Dionne Latif MD Unavailable [phone] Shelby Keenan DO Primary Care Provider [phone] Sivan Montgomery MD, MPH Primary Care Provid er Santa Lewis MD Unavailable [phone] Alma Delia Castro MD Unavailable [phone] Archie Ramos MD Unavailable Sung Jane MD Unavailable José Hernández MD Unavailable Ruy Darling MD Unavailable [phone] Encounter Details Date Type Department Care Team (Late st Contact Info) Description 02/19/2017 Procedure Pass [place], [facility] Scan - [facility] 30 [place] [address] Social History Tobacco Use Types Packs/Day Years Used Date Smoking Tobacco: Never Smokeless Tobacco: Never Alcohol Use Standard Drinks/Week Comments No 0 (1 standard drink = 0.6 oz pur e alcohol) Comments Unknown Sex and Gender Information Value Date Recorded Sex Assigned at Female 10/25/2020 8:18 AM EDT Legal Sex Female 7:31 PM EST Gender Identity Female 10/25/2020 8:18 AM EDT Sexual Orientation Straight 10/25/2020 8: 18 AM EDT documented as of this encounter Plan of Treatment Upcoming Encounters Date Type Department Care Team (Late st Contact Info) Description 12/04/2024 Procedure Pass [facility] 30 [place] [address] 01/01/2025 9:30 AM EDT Appointment [facility] 30 [place] [address] Pooja Elam MD [address] [address] 01/08/2025 9:00 AM EDT Nurse Only [facility] 15 [facility] 201 [place] [address] Sivan Montgomery MD, MPH 15 [facility] 201 [place] [address] 04/01/2025 8:00 AM EST Office Visit [facility] Rheumatology [address] [place] [address] Alma Delia Castro MD 22 [facility], [facility] 203 [place] [address] [email or web address] 05/15/2025 1:20 PM EST Office Visit [facility] [address] Floor, [address] [place] [address] Juan Burns MD 22 [facility], [address] [address] 05/26/2025 8:00 AM EST Office Visit [facility] Primary Care 15 [facility] 201 [place] [address] Pooja Elam MD 15 [facility]. [address] [place] [address] 06/08/2025 9:00 AM EST Office Visit [facility] 22 [place] [address] Santa Lewis MD 22 [facility], 1st [place] [address] 06/15/2025 9:00 AM EST Office Visit [facility] [address] [facility] 3rd Floor, [address] [place] [address] Anup Ward MD, MS 22 [facility], [address] [address] 11/24/2025 9:00 AM EDT Office Visit [facility] Primary Care 15 [facility] [address] [place] [address] Pooja Elam MD [address] [address] documented as of this encounter Visit Diagnoses Not on filedocumented in this encounter Care Teams Paint Grinder [employer] Mill Relationship Specialty Start Date End Date Weston Hamilton DO PCP - General 10/14/13 07/10/18 Shelby Keenan DO [address] [place] [address] [email or web address] PCP - General Family Medicine 07/11/18 08/19/20 Sivan Montgomery MD, MPH [address] [place] [address] [email or web address] PCP - General Family Medicine 08/20/20 Ruy Darling MD [address] [place] [address] [email or web address] Historical LMR Provider 01/30/17 12/23/23 Adin Becerra MD [email or web address] Historical LMR Provider 01/30/17 02/19/22 Kathleen Lopez MD [address] [place] [address] [email or web address] Historical LMR Provider 01/30/17 Weston Hamilton DO [address] [place] [address] Historical LMR Provider 01/30/1702/19 [place] [address] [email or web address] Historical LMR Provider 01/30/17 10/24/20 Santa Lewis MD [address] [place] [address], [facility] [place] [address] Endocrinology 10/26/20 Alma Delia Castro MD 22 [facility], [address] [place] [address] Rheumatology 02/20/22 Archie Ramos MD [address] [place] [address] [address] [place] [address] Orthopedic Surgery 12/24/23 Sung Jane MD [address] [place] [address] Neurology 12/24/23 José Hernández MD [address] [place] [address] [address] [place] [address] Neurosurgery 12/24/23 Ruy Darling MD [address] [place] [address] [email or web address] Intensive Care 12/24/23 documented as of this encounter Additional Source Comments The information contained in this document represents components of the legal health record. It is not the complete legal health record.[facility]
--- OUTSIDE RECORDS SUMMARY | 2024-12-09 07:39 | XMS_ITS | Encounter Summary ---
Author Organization [facility] Address [address] [facility] [address] [place] [address] Phone Care Team Providers Care Distillery Manager Name Role Phone Ruy Darling MD Unavailable [phone] Adin Becerra MD Unavailable [email or web address] Kathleen Lopez MD Unavailable Weston Hamilton DO Unavailable [phone] Dionne Latif MD Unavailable Sivan Montgomery MD, MPH Primary Care Provid er Santa Lewis MD Unavailable [phone] Alma Delia Castro MD Unavailable Archie Ramos MD Unavailable [phone] Sung Jane MD Unavailable José Hernández MD Unavailable [phone] Ruy Darling MD Unavailable [phone] Encounter Details Date Type Department Care Team (Latest Contact Info) Description 09/01/2020 Transcribe Orders [facility] Department 30 [place], [place] [id number] Ashwin Almonte MD [address] [place] [address], [address] [place] [address] [email or web address] White matter disease (Primary Dx); Weakness; Numbness Social History Tobacco Use Types Packs/Day Years [...] 12/04/2024 Procedure Pass [facility] 30 [place] [address] 01/01/2025 9:30 AM EDT Appointment [facility] 30 [place] [address] Pooja Elam MD [address] [address] [email or web address] 01/08/2025 9:00 AM EDT Nurse Only [facility] 15 [facility] 201 [place] [address] Sivan Montgomery MD, MPH [address] [address] [email or web address] 04/01/2025 8:00 AM EST Office Visit [facility] Rheumatology [address] [place] [address] Alma Delia Castro MD 22 [facility], [address] [place] [address] [email or web address] 05/15/2025 1:20 PM EST Office Visit [facility] [address] 3[address] Floor, [address] [place] [address] Juan Burns MD 22 [facility], [address] [place] [address] 05/26/2025 8:00 AM EST Office Visit [facility] 15 [facility] [address] [place] [address] Pooja Elam MD 15 [facility]. [address] [place] [address] 06/08/2025 9:00 AM EST Office Visit [facility] 22 [place] [address] Santa Lewis MD 22 [facility], 1st [place] [address] 06/15/2025 9:00 AM EST Office Visit [facility] [address] 3[address] Floor, [address] [place] [address] Anup Ward MD, MS 22 [facility], [address] [address] 11/24/2025 9:00 AM EDT Office Visit [facility] Care [address] [place] [address] Pooja Elam MD 15 [facility]. [address] [place] [address] documented as of this encounter Visit Diagnoses Diagnosis White matter disease- Primary Weakness Other malaise and fatigue Numbness Disturbance of skin sensation documented in this encounter Additional Health Concerns Assessment Noted Time PHQ-2 Depression Total Score: 0 09/24/19 19 9:43 AM EDT documented as of this encounter Care Teams Distillery Manager Relationship Specialty Start Date End Date Sivan Montgomery MD, MPH [address] [place] [address] [email or web address] PCP - General Family Medicine 08/20/20 Ruy Darling MD [address] [place] [address] [email or web address] Historical LMR Provider 01/30/17 12/23/23 Adin Becerra MD [email or web address] Historical LMR Provider 01/30/17 02/19/22 Kathleen Lopez MD [address] [place] [address] [address] [place] [address] [email or web address] Historical LMR Provider 01/30/17 Weston Hamilton DO [address] [place] [address] Historical LMR Provider 01/30/1702/19 [place] [address] [email or web address] Historical LMR Provider 01/30/17 10/24/20 Santa Lewis MD [address] [place] [address], [address] [place] [address] [email or web address] Endocrinology 10/26/20 Alma Delia Castro MD 22 [facility], [address] [place] [address] Rheumatology 02/20/22 Archie Ramos MD [address] [place] [address] [address] [place] [address] Orthopedic Surgery 12/24/23 Sung Jane MD [address] [place] [address] Neurology 12/24/23 José Hernández MD [address] [place] [address] [address] [place] [address] Neurosurgery 12/24/23 Ruy Darling MD [address] [place] [address] [email or web address] Intensive Care 12/24/23 documented as of this encounter Additional Source Comments The information contained in this document represents components of the legal health record. It is not the complete legal health record.[facility]
--- OUTSIDE RECORDS SUMMARY | 2024-12-09 07:39 | XMS_ITS | Clinical Summary ---
Author Organization [facility] Address [address] [place] [address] Phone Care Team Providers Care Director Of Community Life Name Role Phone Sivan Montgomery MD Primary [...] nostril 1 (one) time each day. Active hydroCHLOROthia zide (MICROZIDE) 12.5 mg capsule Take 1 capsule [...] 1 (one) time each day. 1 Active cholecalciferol (VITAMIN D-3) 10 mcg (400 unit) tablet Take 1 tablet (400 Units total) by mouth 1 (one) time each day. Active azithromycin (ZITHROMAX) 250 mg tablet TAKE 2 TABLETS ONE HOUR BEFORE ANY DENTAL WORK 4 Active HYDROcodone-nilsa taminophen (VICODIN) 5-300 mg per tablet TAKE 1 [...] each day. 30 tablet 2 4 Active cyclobenzaprine (FLEXERIL) 5 mg tablet Take 1 tablet [...] 9 tablet 1 5 07/05/19 26 Active Immunizations Name Administration Dates Next Due [employer] SARS-CoV-2 COVID-19, mRNA, LNP-S, preservative free 07/26/2021,07/06/2020,06/10/2020 [...] 92 07/02/2024 8:49 AM EDT Temperature 35.9 C (96.7 F) 07/02/2024 8:49 AM EDT Respiratory Rate - - Oxygen Saturation 97% 07/02/2024 8:49 AM EDT Inhaled Oxygen Concentration - - Weight 71.7 kg (158 lb) 07/02/2024 8:49 AM EDT Height 154.9 cm (5' 1 ) 07/02/2024 8:49 AM EDT Body Mass Index 29.85 07/02/2024 8:49 AM EDT Plan of Treatment Upcoming Encounters Date Type Department Care Team (Late st Contact Info) Description 01/07/2025 7:30 AM EDT Office Visit [address] [place] [address] Izzy Walker, PA [address] [place] [phone] Health Maintenance Due Date Last Done Comments Diabetes: Annual Foot Exam 1962 Diabetes: Annual Retina Eye Exam 1960 Hepatitis A Vaccines (1 of 2 - Risk 2-dose series) 06/27/1971 Colorectal Cancer Screening: Colonoscopy 03/15/2022 Falls Risk Assessment 03/15/2022 Hepatitis C Screening 03/15/2022 Medicare Annual Wellness Visit 03/15/2022 Social Influencers of Health Screening 03/15/2022 Diabetes: Annual Urine Albumin-Creatinine Ratio (uACR) 03/21/2024 03/21/2023, 03/21/2023, 02/28/2022, Additional history exists Depression Screening 04/16/2024 Hepatitis B Vaccines (2 of 3 - Risk 3-dose series) 06/18/2024 05/21/2024 COVID-19 Vaccine ( season) 2024 01/08/2024, 09/26/2022, 01/25/2022, Additional history exists Diabetes: Blood Sugar Control Test (HGBA1C) 11/06/2024 05/09/2024, 06/15/2023 Influenza Vaccine (#1) 2024 , 01/31/2022, 01/08/2021, Additional history exists Diabetes: Annual GFR (Glomerular Filtration Rate) 02/19/2025 02/20/2024, 01/14/2024, 10/01/2023, Additional history exists Hypertension/CHF/CAD Annual BMP Blood Test 02/19/2025 02/20/2024, 01/14/2024, 10/01/2023, Additional history exists Breast Cancer Screening 04/07/2026 04/07/20, 04/05/2023, 03/29/2022, Additional history exists Cholesterol Screening (Lipid Panel) 01/13/2029 01/14/2024, 11/20/2022 DTaP,Tdap,and Td Vaccines (2 - Td or Tdap) 12/23/2030 12/23/2020 Osteoporosis Screening (Bone Density Screening) 05/17/2033 05/17/2023 Pneumococcal Vaccine: 50+ Years Completed 02/20/2022, 09/23/2018, 01/01/2015 Zoster Vaccines Completed 05/23/2022, 03/05/2022 RSV Immunization Adult Patients Completed 01/16/2023 HIB Vaccines Aged Out No longer eligi [...] Procedure Name Priority Date/Time Associated Diagnosis Comments MG MAMMO DIGITAL SCREENING W PHANI BILAT Routine 04/07/2024 8:36 AM EST Visit for screening mammogram ANNUAL BMP BLOOD TEST Routine 08/22/2023 HEMOGLOBIN A1C Routine 06/15/2023 [facility] DEXA AXIAL SKELETON Routine 05/17/2023 9:32 AM EST Other specified disorders of bone density and structure, left thigh URINE ALBUMIN CREATININE RATIO Routine 03/21/2023 LIPID PANEL Routine 11/20/2022 from Last 3 Months or Most Recently Relevant to Health Maintenance Results * MG Mammo Digital Screening w Phani bilat (04/07/2024 8:36 AM EST) Anatomical Region Laterality Modality Breast Bilateral Mammography 04/07/2024 5:09 PM EST Impressions 04/07/2024 5:17 PM EST No mammographic evidence of malignancy. No suspicious interval change. A negative mammogram in the presence of a clinically suspicious palpable abnormality does not preclude the possibility of malignancy or alter the indications for biopsy. ASSESSMENT: BI-RADS 1: NEGATIVE RECOMMENDATION(S): 1: Routine screening mammogram BILATERAL in 1 year. -------- FINAL REPORT -------- Dictated By: Juan Daniel Castro Dictated Date: 04/07/2024 17:09 ET Assigned Physician: Juan Daniel Castro Reviewed and Electronically Signed By: Juan Daniel Castro Signed Date: 04/07/2024 17:17 ET Workstation ID: [id number] Transcribed By: Self Edit Transcribed Date: 04/07/2024 17:09 ET Narrative 04/07/2024 5:17 PM EST EXAM: SCREENING MAMMOGRAPHY, BILATERAL HISTORY: SCREENING. Surgical removal of benign tumor 11 o'clock position right breast COMPARISON: 04/05/2023, 03/29/2022, 09/20/2020 TECHNIQUE: Synthesized CC and MLO projections of each breast. Tomosynthesis of each breast in the CC and MLO projections. ADDITIONAL IMAGING: None Computer-aided detection was employed with the [employer] profound AI 3-D. TISSUE DENSITY: The breasts are heterogeneously dense, which may obscure small masses. (BI-RADS category C) FINDINGS: RIGHT BREAST: No suspicious mass. No suspicious calcification. No distortion. No suspicious change in the region of a biopsy site marker upper outer right breast. No additional suspicious right breast findings LEFT BREAST: No suspicious mass. No suspicious calcification. No distortion. No additional suspicious left breast findings Procedure Note Juan Daniel Castro MD - 04/07/2024 EXAM: SCREENING MAMMOGRAPHY, BILATERAL HISTORY: SCREENING. Surgical removal of benign tumor 11 o'clock positionright breast COMPARISON: 04/05/2023, 03/29/2022, 09/20/2020 TECHNIQUE: Synthesized CC and MLO projections of each breast.Tomosynthesis of each breast in the CC and MLO projections. ADDITIONAL IMAGING: None Computer-aided detection was employed with the [employer] profound AI 3-D. TISSUE DENSITY: The breasts [...] Signed Date: 04/07/2024 17:17 ET Workstation ID: [id number] Transcribed By: Self Edit Transcribed Date: 04/07/2024 17:09 ET Kathleen Lopez MD IMG BI PROCEDURES Final Result * Annual BMP Blood Test (08/22/2023) Annual BMP Blood Test Abstracted Historical Provider HEALTH MAINTENANCE Final Result * Hemoglobin A1c (06/15/2023) Hemoglobin A1C 0.0 % Comment:no interpretation Blood Venous blood specimen / Unknown Historical Provider LAB BLOOD ORDERABLES Charmaine l Result * LANCE DEXA AXIAL SKELETON (05/17/2023 9:32 AM EST) Anatomical Region Laterality Modality Mammography 05/17/2023 8:57 AM EST Narrative 05/17/2023 9:32 AM EST [facility] Diagnostic Imaging Department [address] [place], [place] [id number] Patient: MERON RDZ /Age/Sex: 1950 - 72 - F Unit#: [id number] Location/Status: SPDIMAM/REG CLI Mnemonic/[facility] Ordering Physician: ALMA DELIA CASTRO MD [facility] Dexa Axial Skeleton - 05/17/23917 Report Status:Signed HISTORY: The patient is a 72-year-old postmenopausal female with clinical concern for metabolic bone disease. FINDINGS: Dual [...] 114% of that of age matched controls. This yields a T-score of -0.4 and a Z-score of 0.9 and there is therefore no evidence of osteoporosis or osteopenia here. However, the T-score of the left femoral neck is -1.4 which is diagnostic of osteopenia. IMPRESSION: 1. Osteopenia. 2. FRAX analysis yields a 10-year probability of major osteoporotic fracture of 21.1% and a 10-year probability of hip fracture of 3.5%. Code 00998 Dictating Physician: MELISSA RICHARDSON MD Electronically Signed by: MELISSA RICHARDSON MD Dic Date/Time: 05/17/23929 Sign date/Time: 05/17/23931 Procedure Note Melissa Richardson MD - 12/03/2023 [facility] Diagnostic Imaging Department [address] [place] [address] Patient: MERON RDZ Alexus Arevalo./Age/Sex: 1950 - 72 -F Unit#: [id number] Location/Status: SPDIMAM/REG CLI Mnemonic/[facility] Ordering Physician: ALMA DELIA CASTRO MD [facility] Dexa Axial Skeleton - 05/17/23917 Report Status:Signed [...] density of the femurs bilaterally is 0.956 gm/[id number] is 95% of that of young normals [...] probability of hip fracture of 3.5%. Code 20658 Dictating Physician: MELISSA RICHARDSON MD Electronically Signed by: MELISSA RICHARDSON MD Dic Date/Time: 05/17/23929 Sign date/Time: 05/17/23931 Alma Delia Castro MD IM BI PROCEDURES Final Re sult * Urine Albumin Creatinine Ratio (03/21/2023) Urine Albumin Creatinine Ratio Abstracted us Historical Provider HEALTH MAINTENANCE Final Result * Lipid panel (11/20/2022) LDL/HDL Ratio 0 Comment:no interpretation Triglycerides 0 mg/dL Comment:no interpretation Cholesterol 0 mg/dL Comment:no interpretation HDL 0 mg/dL Comment:no interpretation LDL Cholesterol 0 mg/dL Comment:no interpretation Blood Venous blood specimen / Unknown us Historical Provider LAB BLOOD ORDERABLES Charmaine l Result from Last 3 Months or Most Recently Relevant to Health Maintenance Insurance [employer] Care Teams Director Of Community Life Relationship Specialty Start Date End Date Sivan Montgomery MD [address] [place] [address] [place] [address] PCP - General Family Medicine 06/17/24
--- OUTSIDE RECORDS SUMMARY | 2024-12-09 07:39 | XMS_ITS | Encounter Summary ---
Author Organization [facility] Address [address] [place] [address] Phone Care Team Providers Care Social Media Sr Strategy Manager Name Role Phone Ruy Darling MD Unavailable [phone] Kathleen Lopez MD Unavailable Sivan Montgomery MD, MPH Primary Care Provid er Santa Lewis MD Unavailable [phone] Alma Delia Castro MD Unavailable Archie Ramos MD Unavailable [phone] Sung Jane MD Unavai lable José Hernández MD Unavailable Ruy Darling MD Unavailable [phone] Encounter Details Date Type Department Care Team (Latest Contact Info) Description 05/19/2022 Transcribe Orders [facility] Laboratory [address] [id number] Mare Drake PA [address] [place], [place] [id number] Gastroesophageal reflux disease, unspecified whether esophagitis present (Primary Dx) Social History Tobacco Use Types [...] work, study, or receive health care? No 07/25/2021 Education Answer Date Recorded Are you interested in help w ith more adult education (for example, completing high school, GED, job training, learning the Ni[place] language, technical skills, or developing parenting skills)? No 07/25/2021 Food Answer Date Recorded Within the past 6 months we worried whether our food would run out before we got money to buy more. Never True 07/25/2021 Food didn't last Not on file 07/25/2021 Residential Stability Answer Date Recor ded What is your housing situation today? I have cristian sing 07/25/2021 How many times have you move d in the past 12 months? Zero (I did not move) 07/25/2021 Paying for Meds Answer Date Recorded Do you have trouble paying for medicines? No 07/25/2021 Paying Utility Bills Answer Date Record ed Do you have trouble paying your heating or elect ricity bill? No 07/25/2021 Transportation Answer Date Recorded Has the lack of transportati on kept you from medical appointments or from getting medications? No 07/25/2021 Unemployment Answer Date Recorded Are you currently unemployed or working on a part-time or temporary basis, and looking for work? No 07/25/2021 Comments No Sex and Gender Information Value [...] st Contact Info) Description 12/04/2024 Procedure Pass [facility] Echo Lab [address] [place] [address] 01/01/2025 9:30 AM EDT Appointment [facility] Echo Lab [address] [place] [address] Pooja Elam MD [address] [address] 01/08/2025 9:00 AM EDT Nurse Only [facility] Primary Care [address] [facility] [address] [place] [address] Sivan Montgomery MD, MPH 15 [facility] [address] [place] [address] 04/01/2025 8:00 AM EST Office Visit [facility] Rheumatology [address] [place] [address] Alma Delia Castro MD [address] [facility], [address] [place] [address] [email or web address] 05/15/2025 1:20 PM EST Office Visit [facility] [address] [facility] 3rd Floor, [address] [place] [address] Juan Burns MD [address] [place] [address], [address] [address] 05/26/2025 8:00 AM EST Office Visit [facility] Primary Care [address] [place] [address] Pooja Elam MD [address] [address] 06/08/2025 9:00 AM EST Office Visit [facility] Diabetes Center [address] [place] [address] Santa Lewis MD 22 [facility], 1st [place] [address] 06/15/2025 9:00 AM EST Office Visit [facility] [address] Floor, [address] [place] [address] Anup Ward MD, MS [address] [facility], [address] [place] [address] 11/24/2025 9:00 AM EDT Office Visit [facility] [address] [facility] [address] [place] [address] Pooja Elam MD [address] [facility] [address] [place] [address] [email or web address] documented as of this encounter Results * (ABNORMAL) C-Reactive Protein (05/19/2022 10:20 AM EST) Pathologist [facility] C REACTIVE PROTEIN 15.9(H) 0.0 - 4.0 mg/L [facility] Blood 05/19/2022 10:2 0 AM EST 05/19/2022 10:23 AM EST us Mare JOSHI LAB BLOOD ORDERABLES Final Result Performing Organization Address City/State/[facility] Co de Phone Number [facility] [address] [place] [address] * (ABNORMAL) Comprehensive metabolic panel (05/19/2022 10:20 AM EST) Pathologist [facility] SODIUM 136 133 - 146 mmol/L [facility] POTASSIUM 4.4 3.3 - 5.1 mmol/L [facility] CHLORIDE 100 96 - 108 mmol/L [facility] CO2 24 21 - 35 mmol/L [facility] BUN 15 6 - 19 mg/dL [facility] CREATININE 0.70 0.5 - 1.5 mg/dL [facility] GLUCOSE 155(H) 70 - 99 mg/dL [facility] ALBUMIN 4.5 3.9 - 4.8 g/dL [facility] TOTAL PROTEIN 7.6 6.5 - 8.0 g/dL [facility] CALCIUM 9.6 8.4 - 10.3 mg/dL [facility] ALKALINE PHOSPHATASE 110 39 - 117 U/L [facility] TOTAL BILIRUBIN 0.5 0.0 - 1.2 mg/dL [facility] AST 25 0 - 37 U/L [facility] ALT 30 0 - 40 U/L [facility] GLOBULIN 3.1 1 - 4.8 g/dL [facility] EGFR 94 >59 mL/min/1.7 3m2 [facility] Comment:Estimated glomerular filtration rate calculated using the CKD-EPI refit equation. ANION GAP 16 10 - 20 mmol/L [facility] Blood 05/19/2022 10:2 0 AM EST 05/19/2022 10:23 AM EST us Mare JOSHI LAB BLOOD ORDERABLES Final Result Performing Organization Address City/State/[facility] Co de Phone Number [address] [address] * CBC and differential (05/19/2022 10:20 AM EST) WBC 7.39 4.00 - 11.00 K/uL [facility] RBC 4.76 3.72 - 5.30 M/uL [facility] HGB 14.9 11.4 - 15.9 g/dL [facility] HCT 44.9 34.2 - 46.8 % [facility] PLT 190 140 - 430 K/uL [facility] MCV 94.3 78.0 - 97.0 fL [facility] MCH 31.3 25.0 - 33.0 pg [facility] MCHC 33.2 32.0 - 36.0 g/dL [facility] RDW 13.7 11.0 - 16.0 % [facility] MPV 12.6 8.4 - 12.8 fl [facility] DIFF METHOD Auto [facility] NEUTS 59.9 43.0 - 75.0 % [facility] LYMPHS 31.1 18.2 - 47.4 % [facility] MONOS 6.5 4.00 - 11.00 % [facility] EOS 1.5 0.0 - 8.0 % [facility] BASOS 0.7 0.0 - 2.0 % [facility] Granulocytes, immature (%) 0.3 0.0 - 0.9 % [facility] ABSOLUTE NEUTS 4.43 1.80 - 7.70 K/uL [facility] ABSOLUTE LYMPHS 2.30 1.00 - 3.10 K/uL [facility] ABSOLUTE MONOS 0.48 0.20 - 0.80 K/uL [facility] ABSOLUTE EOS 0.11 0.00 - 0.80 K/uL [facility] ABSOLUTE BASOS 0.05 0.00 - 0.09 K/uL [facility] Granulocytes, immature 0.02 0.00 - 0.05 K/uL [facility] Blood 05/19/2022 10:2 0 AM EST 05/19/2022 10:23 AM EST us Mare JOSHI LAB BLOOD ORDERABLES Final Result Performing Organization Address City/State/[facility] Co de Phone Number [facility] [address] [place] [address] documented in this encounter Visit Diagnoses Diagnosis Gastroesophageal reflux disease, unspecified whether esophagitis present- Primary documented in this encounter Additional Health Concerns Assessment Noted Time PHQ-2 Depression Total Score: 0 09/24/19 19 9:43 AM EDT documented as of this encounter Care Teams Social Media Sr Strategy Manager Relationship Specialty Start Date End Date Sivan Montgomery MD, MPH [address] [place] [address] [email or web address] PCP - General Family Medicine 08/20/20 Ruy Darling MD [address] [place] [address] [email or web address] Historical LMR Provider 01/30/17 12/23/23 Kathleen Lopez MD [address] [facility], [address] [place] [address] [email or web address] Historical LMR Provider 01/30/17 Santa Lewis MD [address] [facility], 1st [place] [address] Endocrinology 10/26/20 Alma Delia Castro MD [address] [facility], [address] [place] [address] Rheumatology 02/20/22 Archie Ramos MD [address] [place] [address] [address] [place] [address] Orthopedic Surgery 12/24/23 Sung Jane MD [address] [place] [address] Neurology 12/24/23 José Hernández MD [address] [place] [address] [address] [place] [address] Neurosurgery 12/24/23 Ruy Darling MD [address] [place] [address] [address] [place] [address] [email or web address] Intensive Care 12/24/23 documented as of this encounter Additional Source Comments The information contained in this document represents components of the legal health record. It is not the complete legal health record.[facility]
--- OUTSIDE RECORDS SUMMARY | 2024-12-09 07:39 | XMS_ITS | Encounter Summary ---
Author Organization [facility] Address [address] [facility] [address] [place] [address] Phone Care Team Providers Care Mixer Whipped Topping Name Role Phone Weston Hamilton DO Primary Care Provider [phone] Ruy Darling MD Unavailable [phone] Adin Becerra MD Unavailable [email or web address] Kathleen Lopez MD Unavailable Weston Hamilton DO Unavailable [phone] Dionne Latif MD Unavailable [phone] Shelby Keenan DO Primary Care Provider [phone] Sivan Montgomery MD, MPH Primary Care Provid er Santa Lewis MD Unavailable [phone] Alma Delia Castro MD Unavailable [phone] Archie Ramos MD Unavailable Sung Jane MD Unavailable José Hernández MD Unavailable Ruy Darling MD Unavailable [phone] Reason for Referral * MRI/CAT Scan - Closed Specialty Diagnoses / Procedures Referred By Contac t Referred To Contact Radiology Diagnoses Radicular pain of lumbosacral region Procedures MRI Lumbar Spine Mario Laguerre MD Phone: tel: fax: [email or web address] Referral ID Status Reason Start Date Expiration Date Visits Re quested Visits Authorized [id number] Closed 02/13/2017 02/13/2018 1 1 Encounter Details Date Type Department Care Team (Late Contact Info) Description 02/13/2017 Ancillary Orders Virtual Department [address] [place] [id number] Mario Laguerre MD [address] [place] [address] [phone] [email or web address] Radicular pain of lumbosacral region Social History Tobacco Use Types Packs/Day Years [...] 12/04/2024 Procedure Pass [facility] [address] [place] [address] 01/01/2025 9:30 AM EDT Appointment [facility] [address] [place] [address] Pooja Ealm MD [address] [facility] [address] [place] [address] 01/08/2025 9:00 AM EDT Nurse Only Kera Dowling [facility] [address] [facility] [address] [place] [address] Sivan Montgomery MD, MPH [address] [facility] [address] [place] [address] 04/01/2025 8:00 AM EST Office Visit [facility] Rheumatology [address] [place] [address] Alma Delia Castro MD [address] [facility], [address] [place] [address] [email or web address] 05/15/2025 1:20 PM EST Office Visit [facility] 22 [facility] 3rd [facility], [address] [place] [address] Juan Burns MD [address] [address] 05/26/2025 8:00 AM EST Office Visit [facility] [address] [facility] [address] [place] [address] Pooja Elam MD 15 [facility] 201 [place] [address] 06/08/2025 9:00 AM EST Office Visit [facility] [address] [place] [address] Santa Lewis MD 22 [facility], 1st [place] [address] 06/15/2025 9:00 AM EST Office Visit [facility] [address] [place] 3[address] Floor, [address] [place] [address] Anup Ward MD, [place] 22 [facility], [address] [place] [address] 11/24/2025 9:00 AM EDT Office Visit [facility] [address] [facility] [address] [place] [address] Pooja Elam MD 15 [facility] [address] [place] [address] documented as of this encounter Results * MRI LUMBAR SPINE (BONE) WITHOUT CONTRAST (02/15/2017 7:54 PM EDT) Anatomical Region Laterality Modality L-spine Magnetic Resonan ce 02/15/2017 8:59 PM EDT Impressions 02/15/2017 9:18 PM EDT Overall, no significant changes from 01/29/2015. POS - [id number] Narrative 02/15/2017 9:18 PM EDT HISTORY: Worsening lower back pain, history of lower back surgery in 2002. COMPARISON: MRI lumbar spine 01/29/2015, CT abdomen/pelvis 01/31/2016. TECHNIQUE: Exam performed on a 1.5 Sharon high-field MRI scanner. Sagittal T1, T2 and STIR, axial T1 and T2 sequences were obtained. FINDINGS: Conus medullaris: Normal. T11-T12: Moderate disc space narrowing and mild-moderate degenerative endplate changes are stable. No other significant changes. Small broad-based posterior disc-osteophyte complex. Narrowing of the central canal but no definite central canal stenosis. T12-L1: Minimal degenerative endplate changes. L1-L2: Mild disc space narrowing and degenerative endplate changes and loss of T2 signal within the disc are very similar. No evidence of focal disc abnormality or spinal stenosis. L2-L3: Mild degenerative endplate changes and loss of T2 signal within the disc are essentially stable. Mild-moderate bilateral facet arthropathy is similar. No focal disc abnormality or evidence of spinal stenosis. L3-L4: Mild disc space narrowing, mild degenerative endplate changes and loss of T2 signal within the disc are essentially stable. Minimal spondylolisthesis of L3 on L4 stable. Minimal broad-based bulging the disc. Moderate bilateral facet arthropathy is similar. No central canal stenosis or significant neuroforaminal narrowing. L4-L5: More moderate disc space narrowing the lateral 2-L4 is perhaps minimally progressed from 01/29/2015. Similar loss of T2 signal within the disc and mild degenerative endplate changes. Very mild spondylolisthesis of L4 on L5 is stable. Small broad-based disc extrusion, slightly larger to the right of midline is very similar. Moderate to severe bilateral facet arthropathy is very similar. Similar mild thickening of ligamentum flavum. No central canal stenosis has developed. Mild bilateral neuroforaminal narrowing due to disc-osteophyte complexes and facet arthropathy. L5-S1: Loss of T2 signal within the disc is very similar. Disc height fairly well-maintained. Minimal degenerative endplate changes. Small central disc bulge is similar. Moderate to severe facet arthropathy on left is minimally progressed. Similar mild-moderate facet arthropathy on the right. No evidence of central canal stenosis. No significant neuroforaminal narrowing. 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 No other significant changes. Vertebral bodies: No evidence of compression fractures. Marrow signal: No suspicious marrow signal abnormalities. Other: No other significant changes. Procedure Note Epi Foreman MD - 02/15/2017 HISTORY: Worsening lower back pain, history of lower back surgery [id number]. COMPARISON: MRI lumbar spine 01/29/2015, CT abdomen/pelvis 01/31/2016. TECHNIQUE: Exam performed on a 1.5 Sharon high-field MRI scanner. SagittalT1, T2 and STIR, axial T1 and T2 sequences were obtained. FINDINGS: Conus medullaris: Normal. T11-T12: Moderate disc space narrowing and mild-moderate degenerativeendplate changes are stable. No other significant changes. Smallbroad-based posterior disc- osteophyte complex. Narrowing of the centralcanal but no definite central canal stenosis. T12-L1: Minimal degenerative endplate changes. L1-L2: Mild disc space narrowing and degenerative endplate changes andloss of T2 signal within the disc are very similar. No evidence of focaldisc abnormality or spinal stenosis. L2-L3: Mild degenerative endplate changes and loss of T2 signal within thedisc are essentially stable. Mild-moderate bilateral facet arthropathy issimilar. No focal disc abnormality or evidence of spinal stenosis. L3-L4: Mild disc space narrowing, mild degenerative endplate changes andloss of T2 signal within the disc are essentially stable. Minimalspondylolisthesis of L3 on L4 stable. Minimal broad-based bulging thedisc. Moderate bilateral facet arthropathy is similar. No central canalstenosis or significant neuroforaminal narrowing. L4-L5: More moderate disc space narrowing the lateral 2-L4 is perhapsminimally progressed from 01/29/2015. Similar loss of T2 signal withinthe disc and mild degenerative endplate changes. Very mildspondylolisthesis of L4 on L5 is stable. Small broad-based discextrusion, slightly larger to the right of midline is very similar.Moderate to severe bilateral facet arthropathy is very similar. Similarmild thickening of ligamentum flavum. No central canal stenosis hasdeveloped. Mild bilateral neuroforaminal narrowing due to disc-osteophytecomplexes and facet arthropathy. L5-S1: Loss of T2 signal within the disc is very similar. Disc heightfairly well-maintained. Minimal degenerative endplate changes. Smallcentral disc bulge is similar. Moderate to severe facet arthropathy onleft is minimally progressed. Similar mild-moderate facet arthropathy onthe right. No evidence of central canal stenosis. No significantneuroforaminal narrowing. 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 No othersignificant changes. Vertebral bodies: No evidence of compression fractures. Marrow signal: No suspicious marrow signal abnormalities. Other: No other significant changes. IMPRESSION: Overall, no significant changes from 01/29/2015. POS - [id number] Mario Laguerre MD IM MR XSPECIALTY Final Result documented in this encounter Visit Diagnoses Diagnosis Radicular pain of lumbosacral region Radicular pain of lumbosacral region documented in this encounter Care Teams Mixer Whipped Topping Relationship Specialty Start Date End Date Weston Hamilton DO PCP - General 10/14/13 07/10/18 Shelby Keenan DO [address] [place] [address] [email or web address] PCP - General Family Medicine 07/11/18 08/19/20 Sivan Montgomery MD, MPH [address] [place] [address] [email or web address] PCP - General Family Medicine 08/20/20 Ruy Darling MD [address] [place] [address] [email or web address] Historical LMR Provider 01/30/17 12/23/23 Adin Becerra MD [email or web address] Historical LMR Provider 01/30/17 02/19/22 Kathleen Lopez MD [address] [place] [address] [email or web address] Historical LMR Provider 01/30/17 Weston Hamilton DO [address] [place] [address] Historical LMR Provider 01/30/1702/19 [place] [address] [email or web address] Historical LMR Provider 01/30/17 10/24/20 Santa Lewis MD [address] [place] [address] [email or web address] Endocrinology 10/26/20 Alma Delia Castro MD [address] [place], [place] [address], [place] [address] Rheumatology 02/20/22 Archie Ramos MD [address] [place] [address] [address] [place] [address] Orthopedic Surgery 12/24/23 Sung Jane MD [address] [place] [address] Neurology 12/24/23 José Hernández MD [address] [place] [address] [address] [place] [address] Neurosurgery 12/24/23 Ruy Darling MD [address] [place] [address] [email or web address] Intensive Care 12/24/23 documented as of this encounter Additional Source Comments The information contained in this document represents components of the legal health record. It is not the complete legal health record.[facility]
--- OUTSIDE RECORDS SUMMARY | 2024-12-09 07:39 | XMS_ITS | Encounter Summary ---
Author Organization [facility] Address [address] [facility] [address] [place] [address] Phone Care Team Providers Care Master Brewer Name Role Phone Ruy Darling MD Unavailable [phone] Adin Becerra MD Unavailable [email or web address] Kathleen Lopez MD Unavailable Weston Hamilton DO Unavailable [phone] Dionne Latif MD Unavailable Shelby Keenan DO Primary Care Provider [phone] Sivan Montgomery MD, MPH Primary Care Provid er Santa Lewis MD Unavailable [phone] Alma Delia Castro MD Unavailable Archie Ramos MD Unavailable [phone] Sung Jane MD Unavailable José Hernández MD Unavailable Ruy Darling MD Unavailable [phone] Encounter Details Date Type Department Care Team (Latest Contact Info) Description 06/11/[address] [facility] [address] [phone] Bridger Max MD [address] [place] [address] [email or web address] Abnormal LFTs (Primary Dx) Social History Tobacco Use Types [...] 12/04/2024 Procedure Pass [facility] [address] [place] [address] 01/01/2025 9:30 AM EDT Appointment [facility] [address] [place] [address] Pooja Elam MD [address] [address] [email or web address] 01/08/2025 9:00 AM EDT Nurse Only [facility] 15 [facility] [address] [place] [address] Sivan Montgomery MD, MPH [address] [address] [email or web address] 04/01/2025 8:00 AM EST Office Visit Kera Dowling [facility] Rheumatology [address] [place] [address] Alma Delia Castro MD 22 [facility] 203 [place] [address] [email or web address] 05/15/2025 1:20 PM EST Office Visit [facility] [address] 3[address] Floor, [address] [place] [address] Juan Burns MD 22 [facility], [address] [place] [address] 05/26/2025 8:00 AM EST Office Visit [facility] Primary Care [address] [place] [address] Pooja Elam MD [address] [address] 06/08/2025 9:00 AM EST Office Visit [facility] [address] [place] [address] Santa Lewis MD 22 [facility], 1st [place] [address] 06/15/2025 9:00 AM EST Office Visit [facility] 22 [facility] 3rd Floor, [address] [place] [address] Aunp Ward MD, [place] [address] [facility], [address] [place] [address] 11/24/2025 9:00 AM EDT Office Visit [facility] [address] [place] [address] Pooja Elam MD [address] [address] documented as of this encounter Results * LFTs (hepatic panel) (06/11/2019 9:35 AM EST) [facility] 107 39 - 117 U/L [facility] TOTAL BILIRUBIN 0.4 0.0 - 1.2 mg/dL [facility] DIRECT BILIRUBIN <0.2 0 - 0.3 mg/dL [facility] Bilirubin (Indirect) NOT CALCULATED 0 - 1.5 mg/dL [facility] AST 18 0 - 37 U/L [facility] ALT 23 0 - 40 U/L [facility] TOTAL PROTEIN 7.5 6.5 - 8.0 g/dL [facility] ALBUMIN 4.6 3.9 - 4.8 g/dL [facility] GLOBULIN 2.9 1 - 4.8 g/dL [facility] A/G Ratio 1.59 1.00 - 4.80 RATIO [facility] Blood 06/11/2019 9:35 AM EST 06/11/2019 9:39 AM EST us Bridger Max MD LAB BLOOD ORDERABLES Final Resul t [facility] [address] [place] [address] documented in this encounter Visit Diagnoses Diagnosis Abnormal LFTs- Primary documented in this encounter Additional Health Concerns Assessment Noted Time PHQ-2 Depression Total Score: 0 09/24/19 19 9:43 AM EDT documented as of this encounter Care Teams Master Brewer Relationship Specialty Start Date End Date Shelby Keenan DO [address] [place] [address] [email or web address] PCP - General Family Medicine 07/11/18 08/19/20 Sivan Montgomery MD, MPH [address] [place] [address] [email or web address] PCP - General Family Medicine 08/20/20 Ruy Darling MD [address] [place] [address] [email or web address] Historical LMR Provider 01/30/17 12/23/23 Adin Becerra MD [email or web address] Historical LMR Provider 01/30/17 02/19/22 Kathleen Lopez MD [address] [facility], [address] [place] [address] [email or web address] Historical LMR Provider 01/30/17 Weston Hamilton DO [address] [place] [address] [address] [place] [address] Historical LMR Provider 01/30/1702/19 [place] [address] [email or web address] Historical LMR Provider 01/30/17 10/24/20 Santa Lewis MD [address] [facility], 1st [place] [address] Endocrinology 10/26/20 Alma Delia Castro MD 22 [facility], [address] [place] [address] Rheumatology 02/20/22 Archie Ramos MD [address] [place] [address] 203 [place] [address] Orthopedic Surgery 12/24/23 Sung Jane MD [address] [place] [address] 150 [place] [address] Neurology 12/24/23 José Hernández MD [address] [place] [address] [address] [place] [address] Neurosurgery 12/24/23 Ruy Darling MD [address] [place] [address] [email or web address] Intensive Care 12/24/23 documented as of this encounter Additional Source Comments The information contained in this document represents components of the legal health record. It is not the complete legal health record.[facility]
--- OUTSIDE RECORDS SUMMARY | 2024-12-09 07:39 | XMS_ITS | Clinical Summary ---
Author Organization [facility] Address [address] [address] Phone Care Team Providers Care Shoe Treer Name Role Phone Kathleen Lopez MD Unavailable Sivan Montgomery MD, MPH Primary Care Provid er Santa Lewis MD Unavailable [phone] Alma Delia Castro MD Unavailable [phone] Archie Ramos MD Unavailable [phone] Sung Jane MD Unavai lable José Hernández MD Unavailable [phone] Ruy Darling MD Unavailable [phone] Allergies Active Allergy Reactions Criticality Noted Date Comments Isma Inhibitors Cough Low 12/12/2021 Ampicillin Shortness Of Breath,Itching,Swell ing,Rash 02/20/2013 Cephalexin Shortness Of Breath,Itching,Swell ing,Rash 02/20/2013 Clindamycin Shortness Of Breath,Itching,Swell ing,Rash 02/20/2013 Diclofenac Sodium 06/18/2018 Nausea and upset stomach Erythromycin Base Shortness Of Breath,Itching,Swell ing,Rash 02/20/2013 Gabapentin Weight Gain Low 09/26/2021 Pregabalin 06/18/2018 vertigo Other Unknown 01/01/2017 Dust,mold Oxaprozin Unknown 02/20/2013 Penicillins Itching,Rash,Shortne ss Of Breath,Swelling High 02/20/2013 Sulfamethoxazole-Trimet hoprim Fever,Other (See Comments) 02/20/2013 generalized erythema Tetracycline Shortness Of Breath,Itching,Swell ing,Rash 02/20/2013 Medications cholecalciferol (VITAMIN D3) 2,000 unit tablet 2,000 Units daily. Active EPINEPHrine 0.3 mg/0.3 mL auto-injector Active cetirizine (ZYRTEC) 10 MG tablet Take 10 mg by mouth daily. Active loperamide (IMODIUM) 2 mg capsule Take 2 mg by mouth as needed for diarrhea. Active OXYGEN-AIR DELIVERY SYSTEMS MISC Inhale 2 L/min into the lungs nightly. At night Active olopatadine (PATANOL) 0.1 % ophthalmic solution Place 1 drop into each eye 2 (two) times a day. 5 mL 12 11/05/19 21 Active nitroglycerin (NITROSTAT) 0.[address] 1 tablet (0.3 mg total) under the tongue every 5 (five) minutes as needed for chest pain. 100 tablet 1 02/01/20 21 Active magnesium 200 mg Tab Take 400 mg by mouth daily. Active POTASSIUM ORAL Take 10 mEq by mouth daily. Active fluticasone propionate (FLONASE) 50 mcg/actuation nasal sprayIndications:N on-seasonal allergic rhinitis, unspecified trigger USE 2 SPRAY(S) IN EACH NOSTRIL ONCE DAILY NEEDED FOR ALLERGIES 16 g 11 04/17/19 24 Active SUMAtriptan (IMITREX) 100 MG tabletIndications: Migraine TAKE 1 TABLET BY MOUTH NEEDED FOR MIGRAINE HEADACHE 12 tablet 5 11/21/19 24 Active levothyroxine (SYNTHROID, LEVOTHROID) 125 MCG tabletIndications: Acquired hypothyroidism take 1 tablet by mouth in the morning 90 tablet 3 12/24/19 24 Active riboflavin, vitamin B2, 400 mg Tab Take by mouth daily. Active TURMERIC ORAL Take 1,500 mg by mouth daily. Active colchicine (COLCRYS) 0.6 mg tabletIndications: Familial Mediterranean fever,Pseudogout of right knee Take 1 tablet (0.6 mg total) by mouth daily. 90 tablet 1 04/02/20 24 Active hydroCHLOROthiazid e 25 MG tabletIndications: Primary hypertension Take 1 tablet by mouth once daily 90 tablet 3 04/14/20 24 Active albuterol 90 mcg/actuation inhaler inhale 2 puffs by mouth every 6 hours as needed for wheezing 18 g 07/30/19 25 Active BD DEE 2ND GEN PEN NEEDLE 32 gauge x 5/32 NdleIndications:Ty pe 2 diabetes mellitus without complication, without long-term current use of insulin USE 1 PEN NEEDLE ONCE DAILY NEEDED 100 each 08/20/19 25 Active metoprolol succinate (TOPROL-XL) 25 MG 24 hr tabletIndications: Hypertension, unspecified type Take 1 tablet by mouth once daily 90 tablet 3 08/28/19 25 Active atorvastatin (LIPITOR) 20 MG tablet Take 1 tablet (20 mg total) by mouth daily. 90 tablet 3 09/23/19 25 Active calcium carbonate (CALCIUM 600 ORAL) Take 2 tablets by mouth daily. 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 270 tablet 3 11/20/19 25 026 Active famotidine (PEPCID) 40 MG tabletIndications: Gastroesophageal reflux disease without esophagitis Take 1 tablet (40 mg total) by mouth 2 (two) times a day. 180 tablet 3 11/20/19 25 Active LANTUS SOLOSTAR U-100 INSULIN 100 unit/mL (3 mL) InPn injection penIndications:Typ e 2 diabetes mellitus without complication, with long-term current use of insulin Inject 26 Units under the skin nightly at bedtime. 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 90 tablet 10/10/19 25 025 Discontin ued(Reord er) Hospital, Clinic, or Other Facility Administered Medication Ordered Dose Route Frequency Start Date End Date Status cyanocobalamin (VITAMIN B-12) 1,000 mcg/mL injection 1,000 mcgIndications:B12 deficiency 1000 mcg IM Every 30 days 09/28/2021 Active Active Problems Problem Noted Date Diagnosed Date Macular degeneration of both eyes 08/12/2024 Assessment & Plan (08/12/2024 1:39 PM EDT): New dx. FU with ophtho Sacroiliitis 08/12/2024 Assessment & Plan (08/12/2024 1:39 PM EDT): Referral signed. Schedule with [facility] as per spinal med rec Acquired hypothyroidism 05/21/2024 Assessment & Plan (11/17/2024 11:45 AM EDT): Most recent TSH reviewed, this is in desired range Continues on LT4 Current long standing issues with fatigue do not seem to be related to thyroid dysregulation given most recent lab data Assessment & Plan (06/09/2024 1:35 PM EST): Due for labs before next visit Orders: TSH with reflex; Future Neck pain 04/02/2024 Assessment & Plan (04/02/2024 9:05 AM EST): Continue warm pack application followed by gentle stretching and range of motion exercises that she knows from prior appointments. Family history of carotid artery stenosis 2022 LEANNA exposure in utero 01/11/2023 Overview (05/21/2024): Sees [facility] Assessment & Plan (06/09/2024 1:35 PM EST): FU with obstetrician/gynecologist Preop cardiovascular exam 10/10/2022 Assessment & Plan (10/10/2022 1:46 PM EDT): She recently had a stress test which showed no evidence of ischemia or previous PR. She is at overall low risk for cardiac complications related to her upcoming surgery. She tells me that she will be having surgery on her back. She does not require any further testing before her upcoming surgery. Lateral epicondylitis of right elbow 05/25/2022 Assessment & Plan (05/25/2022 8:37 AM EST): Procedure: After an informed oral consent, under sterile conditions using Ethyl chloride spray for local anesthesia I have injected 30 mg DepoMedrol and 1.5 cc 1% Lidocaine into Right lateral epicondyle uneventfully. Details of post-procedure care were explained to the patient in the office and given in writing. Provider: Alma Delia Castro MD Patient: Meron Vaughan Yang : 1950 Date: 05/25/2022 Steatohepatitis 03/15/2022 Trochanteric bursitis of right hip 01/19/2022 Assessment & Plan (01/19/2022 8:35 AM EDT): Procedure: After an informed oral consent, under sterile conditions using Ethyl chloride spray for local anesthesia I have injected 40 mg DepoMedrol and 2 cc 1% Lidocaine into Right trochanteric bursa uneventfully. Details of post-procedure care were explained to the patient in the office and given in writing. Provider: Alma Delia Castro MD Patient: Meron Galindodebbie : 1950 Date: 01/19/2022 Uncontrolled restless legs syndrome 12/12/2021 Other chronic pain 07/25/2021 Overview (11/30/2022): Multifactorial pain Assessment & Plan (12/12/2021 1:00 PM EDT): Increase Cymbalta from 20 to 30 mg for pain management. Has CPE scheduled with PCP in 2 months. Offered sooner visit to re-evaluate, pt declines. Assessment & Plan (07/26/2021 12:01 AM EDT): This is likely multifactorial. I will try to get [facility] notes so that I have a sense of what they are thinking about in terms of causes. I do think trying cymbalta would be reasonable with her myriad diagnoses as it could help FM, neuropathic pain from back. Start low dose. On colchicine therapy 05/16/2021 Assessment & Plan (09/29/2024 9:39 AM EDT): Carefully continue daily supplementation as it prevents bouts of FMF according to her report. According to her recollection she has been taking colchicine daily for about 20 years. If increasing GERD symptoms with daily colchicine may need to consider decreasing frequency to every other day. I have advised her to check with her PCP regarding switching high-dose diltiazem into different blood pressure controlling medication that will have less interaction with colchicine. Assessment & Plan (04/02/2024 8:31 AM EST): Carefully continue daily supplementation as it prevents bouts of FMF according to her report. If increasing GERD symptoms with daily colchicine may need to consider decreasing frequency to every other day. I have advised her to check with her PCP regarding switching high-dose diltiazem into different blood pressure controlling medication that will have less interaction with colchicine. Assessment & Plan (10/01/2023 8:54 AM EDT): Carefully continue daily supplementation as it prevents bouts of FMF according to her report. If increasing GERD symptoms with daily colchicine may need to consider decreasing frequency to every other day. I have advised her to check with her PCP regarding switching high-dose diltiazem into different blood pressure controlling medication that will have less interaction with colchicine. Assessment & Plan (09/25/2022 9:04 AM EDT): Carefully continue daily supplementation as it prevents bouts of FMF according to her report. If increasing GERD symptoms with daily colchicine may need to consider decreasing frequency to every other day. I have advised her to check with her PCP regarding switching high-dose diltiazem into different blood pressure controlling medication that will have less interaction with colchicine. Assessment & Plan (05/25/2022 8:37 AM EST): Carefully continue daily supplementation as it prevents bouts of FMF according to her report. If increasing GERD symptoms with daily colchicine may need to consider decreasing frequency to every other day. I have advised her to check with her PCP regarding switching high-dose diltiazem into different blood pressure controlling medication that will have less interaction with colchicine. Assessment & Plan (09/19/2021 8:41 AM EDT): Carefully continue daily supplementation as it prevents bouts of FMF according to her report. If increasing GERD symptoms with daily colchicine may need to consider decreasing frequency to every other day. I have advised her to check with her PCP regarding switching high-dose diltiazem into different blood pressure controlling medication that will have less interaction with colchicine. Assessment & Plan (05/17/2021 10:01 AM EST): Carefully continue daily supplementation as it prevents bouts of FMF according to her report. If increasing GERD symptoms with daily colchicine may need to consider decreasing frequency to every other day. Dry eyes 05/16/2021 Assessment & Plan (05/17/2021 9:54 AM EST): Keep well-hydrated. Avoid direct and prolonged exposure to air from fans or air conditioners. Diligent eyes hygiene. Regular ocular checkups. SUKHWINDER positive 05/16/2021 Assessment & Plan (09/19/2021 8:09 AM EDT): I have explained to Nissa that positive SUKHWINDER in itself does not make any diagnosis however may be a risk factor for developing one of the systemic rheumatic diseases associated with it such as systemic lupus erythematosus, Sjogren's syndrome, mixed connective tissue disease, polymyositis, dermatomyositis etc. There are very limited symptoms or signs on her history or physical exam today to suggest any specific systemic rheumatic diseases except for dry eyes that may correspond to possible Sjogren's syndrome therefore I took the liberty of checking her Sjogren's antibodies repeating smooth muscle antibody since she had them positive on prior checkup. Assessment & Plan (05/17/2021 9:50 AM EST): I have explained to Nissa that positive SUKHWINDER in itself does not make any diagnosis however may be a risk factor for developing one of the systemic rheumatic diseases associated with it such as systemic lupus erythematosus, Sjogren's syndrome, mixed connective tissue disease, polymyositis, dermatomyositis etc. There are very limited symptoms or signs on her history or physical exam today to suggest any specific systemic rheumatic diseases except for dry eyes that may correspond to possible Sjogren's syndrome therefore I took the liberty of checking her Sjogren's antibodies repeating smooth muscle antibody since she had them positive on prior checkup. Pseudogout of right knee 04/07/2021 Assessment & Plan (09/29/2024 9:09 AM EDT): Continue joint protection, energy conservation. Gentle, regular ROM, stretching and muscle strengthening exercises. Avoid falls, injuries and overuse. Well fitting, supportive shoes. Continue colchicine that appears helpful in preventing her acute attacks. Assessment & Plan (04/02/2024 8:32 AM EST): Continue joint protection, energy conservation. Gentle, regular ROM, stretching and muscle strengthening exercises. Avoid falls, injuries and overuse. Well fitting, supportive shoes. Continue colchicine that appears helpful in preventing her acute attacks. Assessment & Plan (10/01/2023 8:53 AM EDT): Continue joint protection, energy conservation. Gentle, regular ROM, stretching and muscle strengthening exercises. Avoid falls, injuries and overuse. Well fitting, supportive shoes. Continue colchicine that appears helpful in preventing her acute attacks. Assessment & Plan (03/28/2023 8:28 AM EST): Continue joint protection, energy conservation. Gentle, regular ROM, stretching and muscle strengthening exercises. Avoid falls, injuries and overuse. Well fitting, supportive shoes. Continue colchicine that appears helpful in preventing her acute attacks. Assessment & Plan (09/25/2022 9:06 AM EDT): Continue joint protection, energy conservation. Gentle, regular ROM, stretching and muscle strengthening exercises. Avoid falls, injuries and overuse. Well fitting, supportive shoes. Continue colchicine that appears helpful in preventing her acute attacks. Assessment & Plan (06/03/2022 5:04 PM EST): Continue joint protection, energy conservation. Gentle, regular ROM, stretching and muscle strengthening exercises. Avoid falls, injuries and overuse. Well fitting, supportive shoes. Continue colchicine that appears helpful in preventing her acute attacks. Assessment & Plan (01/19/2022 8:11 AM EDT): Documented on recent knee x-rays. Avoid falls, injuries, stair climbing, squatting, kneeling, heavy lifting. Continue daily colchicine as prescribed. Gentle, regular quadricep strengthening exercises. Work on bringing her body weight into ideal range for her height. She may benefit from topical cream such as Arnica, Biofreeze, Voltaren gel versus medicated patches such as Salonpas or IcyHot patch 2-3 times daily and if needed prior to bed rest. Assessment & Plan (09/19/2021 8:40 AM EDT): Documented on recent knee x-rays. Avoid falls, injuries, stair climbing, squatting, kneeling, heavy lifting. Continue daily colchicine as prescribed. Gentle, regular quadricep strengthening exercises. Work on bringing her body weight into ideal range for her height. She may benefit from topical cream such as Arnica, Biofreeze, Voltaren gel versus medicated patches such as Salonpas or IcyHot patch 2-3 times daily and if needed prior to bed rest. Assessment & Plan (05/17/2021 9:52 AM EST): Documented on recent knee x-rays. Avoid falls, injuries, stair climbing, squatting, kneeling, heavy lifting. Continue daily colchicine as prescribed. Gentle, regular quadricep strengthening exercises. Work on bringing her body weight into ideal range for her height. She may benefit from topical cream such as Arnica, Biofreeze, Voltaren gel versus medicated patches such as Salonpas or IcyHot patch 2-3 times daily and if needed prior to bed rest. 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 Gentle, regular exercise routine. Avoid falls, injuries, overuse. Keep body weight in ideal range for his height. She may benefit from topical cream such as Arnica, Biofreeze, Aspercreme versus medicated patches such as salonpas, icy hot patch 2-3 times daily and if necessary at bedtime x 3 weeks. Consider warm pool therapy at [facility]-information provided for her today. Assessment & Plan (05/25/2022 8:38 AM EST): Joint protection, energy conservation. Gentle, regular exercise routine. Avoid falls, injuries, overuse. Keep body weight in ideal range for his height. He may benefit from topical cream such as Arnica, Biofreeze, Aspercreme versus medicated patches such as salonpas, icy hot patch 2-3 times daily and if necessary at bedtime x 3 weeks. Consider warm pool therapy at [facility]-information provided for her today. Assessment & Plan (01/19/2022 8:12 AM EDT): Joint protection, energy conservation. Gentle, regular exercise routine. Avoid falls, injuries, overuse. Keep body weight in ideal range for his height. He may benefit from topical cream such as Arnica, Biofreeze, Aspercreme versus medicated patches such as salonpas, icy hot patch 2-3 times daily and if necessary at bedtime x 3 weeks. Consider warm pool therapy at [facility]-information provided for her today. Assessment & Plan (09/19/2021 8:42 AM EDT): Joint protection, energy conservation. Gentle, regular exercise routine. Avoid falls, injuries, overuse. Keep body weight in ideal range for his height. He may benefit from topical cream such as Arnica, Biofreeze, Aspercreme versus medicated patches such as salonpas, icy hot patch 2-3 times daily and if necessary at bedtime x 3 weeks. Consider warm pool therapy at [facility] in [place]-information provided for her today. Hx of fusion of cervical spine 04/07/2021 History of replacement of both shoulder joints 1 06/08/2020 Chronic fatigue syndrome 04/07/2021 Shortness of breath 01/31/2021 Assessment & Plan (02/28/2023 9:03 AM EST): Ongoing atypical dyspnea ongoing for over 20 years without real change. Negative work-up including normal spirometry with no evidence for active asthma, stable echo and cardiac MRI. Continue to believe that the symptoms are referred from her GI tract. Would continue to augment treatment for GERD. Assessment & Plan (01/24/2023 9:24 AM EDT): She tells me that she has had shortness of breath for quite some time. She had a normal nuclear stress test in July and in October she had a an echocardiogram which was overall normal showing an EF of 55 to 60% and no major valvular disease. Assessment & Plan (10/10/2022 1:43 PM EDT): She tells me that she has been short of breath. At one of her previous follow- ups, she was concerned about coronary artery disease. She did have a stress test which showed no evidence of ischemia or previous PR. I suspect that her shortness of breath is due to her reduced exercise abilities. She has a lot of issues with back pain. Assessment & Plan (07/05/2022 8:30 AM EDT): She is once again reporting shortness of breath. She has continued to follow-up with her pick up man. She is concerned about coronary artery disease and is very interested in having a stress test which I have ordered. She is not sure that she can do the exercise portion of the test given her right hip pain but she will try. Otherwise, she will be converted to a pharmacologic. (Not prepped, please call patient and ask her to hold her beta-derek for 2 days). I have also ordered an echocardiogram given her shortness of breath. At this point, she is completely euvolemic on exam. Follow-up 3 months. Assessment & Plan (01/04/2022 9:13 AM EDT): She will continue to follow-up with her pick up man. Assessment & Plan (01/31/2021 8:56 AM EDT): Mild intermittent dyspnea, description most suggestive of atypical GERD symptoms. We will treat aggressively as outlined below. Avascular necrosis 01/12/2021 Assessment & Plan (02/18/2021 2:18 PM EDT): As this MRI was ordered by Dr Becerra, I recommended calling Rheumatology about getting order sent to an appropriate MRI facility. If they are unable to help since he is gone, I will do my best, however his read is different from radiologist's. Will get set up with Ortho for this right hip pain Assessment & Plan (01/12/2021 8:45 AM EDT): Right hip x-ray reviewed. Some mottling of the femoral head with subchondral cyst formation and subchondral sclerosis as well as superior joint space narrowing and osteophytosis suggestive of more moderate osteoarthritis but perhaps osteonecrosis as well. No anahy D formation of the femoral head. Explained differential diagnosis. Medications left unchanged. MRI ordered. She will follow up with Dr. James and likely orthopedics. Follow-up phone call after review of MRI. More than 50% of this 34-minute visit was spent [id number] conversation with the patient. All questions answered. Gastroesophageal reflux disease 11/04/2020 Assessment & Plan (09/29/2024 9:19 AM EDT): Avoid late, large, spicy meals. Keep headboard elevated at 45 angle for nighttime. Carefully continue 40 mg twice daily Assessment & Plan (05/09/2024 9:53 AM EST): Nissa reports that colchicine impacts this It does not seem Ozempic has affected her in the past but she is advised to monitor any worsening of GERD symptoms related to this Assessment & Plan (04/02/2024 8:31 AM EST): Avoid late, large, spicy meals. Keep headboard elevated at 45 angle for nighttime. Assessment & Plan (10/01/2023 8:54 AM EDT): Avoid late, large, spicy meals. Keep headboard elevated at 45 angle for nighttime. Assessment & Plan (03/28/2023 9:15 AM EST): Avoid late, large, spicy meals. Keep headboard elevated at 45 angle for nighttime. Make sure that speech pathology teacher is aware about our plan to restart colchicine at 50% dose= 0.3 mg daily for prevention of FMF attacks. Get LFTs within the next 2-3 months since restarting 50% dose of colchicine- standing orders in [facility]. Continue Pepcid as prescribed and follow-up with speech pathology teacher as scheduled on 05/14/2023. Assessment & Plan (02/28/2023 9:03 AM EST): Improved GERD symptoms but still with breakthrough. Suggest try increasing baclofen titrating up to max dose of 20 mg 3 times daily. Continue famotidine at night. Follow-up with GI as scheduled in April. Assessment & Plan (01/19/2022 8:12 AM EDT): Avoid late, large, spicy meals. Keep headboard elevated at 45 angle for nighttime. Assessment & Plan (09/19/2021 8:09 AM EDT): Avoid late, large, spicy meals. Keep headboard elevated at 45 angle for nighttime. Assessment & Plan (05/17/2021 9:57 AM EST): Avoid late, large, spicy meals. Keep headboard elevated at 45 angle for nighttime. According to Dr. Darling's report from January 2021 severe GERD, triggered by colchicine. Continue high-dose Pepcid with baclofen although intolerant to thrice daily administration. Revealed nitroglycerin for esophageal spasms and advised to follow-up with Dr. Orozco from GI. Assessment & Plan (01/31/2021 8:56 AM EDT): Severe GERD, triggered by colchicine. Remains on high-dose Pepcid. Improvement with baclofen. Intolerant of 3 times daily dosing. Can try increasing to 20 mg twice daily if tolerates. Refill nitroglycerin provided for esophageal spasms. Follow-up with Dr. Orozco from GI. Assessment & Plan (11/04/2020 8:37 AM EDT): Severe chronic GERD with esophageal spasm. Control worsened due to need for chronic colchicine for her FMF. Intolerant of PPI therapy, and apparently Carafate as well. Continue high-dose famotidine. Recommend trial of BACLOFEN. Start with a half a tablet at night, increase up to a half a tablet 3 times a day over the course of a week. If no excess sleepiness, can increase to 1 full tablet 3 times daily. If no side effects but inadequate control of reflux symptoms, can call for an increased dose to maximum of 20 mg 3 times daily. Mild intermittent asthma 11/04/2020 Overview (04/10/2023): PFTs 2022 Assessment & Plan (02/28/2023 9:03 AM EST): No evidence of persistent or poorly controlled asthma. Continue albuterol as needed. Assessment & Plan (11/30/2022 10:16 AM EDT): Can reach out to her pharmacy for new inhaler. Refill sent Assessment & Plan (01/31/2021 8:54 AM EDT): Continue albuterol as needed. Assessment & Plan (11/04/2020 8:36 AM EDT): Continue albuterol as needed. Conjunctivitis 11/04/2020 Overview (11/04/2020): Allergic Assessment & Plan (11/04/2020 8:38 AM EDT): Recommend trial of Patanol eyedrops twice daily as needed Allergy to multiple antibiotics 10/26/2020 Assessment & Plan (10/26/2020 11:35 AM EDT): Unfortunately has very limited options should she ever need abx. Allergy may be able to help address some of these concerns. Will likely need infectious disease involvement if any infections arise. Multiple food allergies 10/26/2020 Assessment & Plan (10/26/2020 11:36 AM EDT): Discussed implications of food allergy testing and although it's hard for her to disentangle food related symptoms from her other variety of ailments, she would like to pursue and see if better avoidance of allergens would improve her quality of life. Referral placed. Obstructive sleep apnea 09/27/2020 Assessment & Plan (06/09/2024 1:35 PM EST): Cont CPAP nightly Assessment & Plan (02/28/2023 9:03 AM EST): Patient asked about switching to see Dr. Roque in our office. I suggested she continue with her follow-up as scheduled with [facility] but would be happy to refer her in the future if needed. Assessment & Plan (01/24/2023 9:24 AM EDT): She will continue to follow-up with sleep medicine. Assessment & Plan (11/30/2022 9:21 AM EDT): Cont with sleep medicine. Encouraged to wear constantly while sleeping Assessment & Plan (10/26/2020 11:29 AM EDT): Cont w CPAP per sleep med Assessment & Plan (09/27/2020 10:34 AM EDT): Started on CPAP since our last visit, using this consistently We discussed beneficial effects of improved sleep quality on insulin sensitivity and glucose control Osteoarthritis of left knee 06/30/2019 Assessment & Plan (11/01/2020 11:29 AM EDT): Corticosteroid injection today. Assessment & Plan (07/14/2019 8:47 AM EDT): Administer 2 cc Synvisc left knee. Assessment & Plan (07/07/2019 10:00 AM EDT): Second Synvisc injection today. Assessment & Plan (06/30/2019 9:16 AM EDT): First Synvisc injection today. Type 2 diabetes mellitus, [facility] current use of insulin 05/02/2019 Assessment & Plan (11/17/2024 11:52 AM EDT): Nissa's glucose patterns continue to be excellent since our last visit and remain much improved compared to the past, she has been able to resume Ozempic therapy and has weaned off Lantus insulin, she was able to have good control with Ozempic only in the past but when this became unaffordable then she had to return to basal insulin, now on patient assistance program which makes Ozempic much more affordable Nissa regained weight when she stopped Ozempic and started on insulin, she may have some weight loss as she is now back on Ozempic and off insulin, this is likely to be optimized if activity is also increased with upcoming therapies We discussed Ozempic therapy adjustments that will be needed if Nissa is cleared for shoulder replacement, she is advised to contact me if there are any questions regarding recommendations she is provided on this Nissa is encouraged to continue her efforts at following a healthy balanced diet Nissa is advised to contact us with any questions or concerns, we will follow up in 6 months Assessment & Plan (09/29/2024 9:10 AM EDT): Continue close follow-up with steamfitter apprentice, principal technical specialist to optimize her diabetic control. Assessment & Plan (06/09/2024 1:35 PM EST): Cont with endocrinology Assessment & Plan (05/09/2024 10:09 AM EST): Nissa's glucose patterns continue to be excellent since our last visit and remain much improved compared to the past, she continues on Lantus insulin as she was unable to continue on GLP1ra therapy due to cost Nissa continues to be interested in noninsulin therapy that would also help with weight loss, she had good experience with Ozempic even at the lowest dose, unfortunately the cost was too high once she reached the donut hole; we discussed resuming Ozempic at low dose with option of optimizing to 0.5mg weekly if tolerated well She had regained weight when stopped Ozempic and started on insulin but this has remained stable since last summer Nissa is encouraged to continue her efforts at following a healthy balanced diet Nissa is advised that she is likely to require less insulin if she is able to afford and tolerate GLP1ra therapy, she has had great benefit from CGM technology; we discussed a plan for insulin dosage reduction based on glucose patterns CGM may not be covered for Nissa [employer] if she is able to stop insulin therapy Nissa is advised to contact us with any questions or concerns, we will follow up in 6 months Assessment & Plan (04/02/2024 8:54 AM EST): Continue close follow-up with steamfitter apprentice, principal technical specialist to optimize her diabetic control. Assessment & Plan (10/07/2023 3:27 PM EDT): Continue close follow-up with steamfitter apprentice, principal technical specialist to optimize her diabetic control. Assessment & Plan (04/23/2023 9:30 PM EST): Faridehs glucose patterns continue to be excellent since our last visit and much improved compared to one year ago, she continues on Lantus insulin at modest dosage Nissa continues to be interested in noninsulin therapy that would also help with weight loss, she had tried Ozempic and found this agreeable with her and had excellent response even at the lowest dose, unfortunately the cost was too high once she reached the donut hole Nissa had lost 13lb over the short time she took low dose Ozempic, she has regained 5lb since last fall Nissa is encouraged to continue her efforts at following a healthy balanced diet Nissa is advised that she is likely to require less insulin if she is able to afford and tolerate GLP1ra therapy, she has had great benefit from CGM technology Nissa's excellent glucose control make her an excellent surgical candidate at this time and she is scheduled for THR in June Nissa is advised to contact us with any questions or concerns, she has an upcoming appt with Mignon Robles in December and we will follow up in July Assessment & Plan (04/10/2023 10:26 AM EST): Cont with endo, back on insulin Assessment & Plan (11/30/2022 9:21 AM EDT): Cont with endo Assessment & Plan (10/16/2022 10:31 AM EDT): Nissa's glucose patterns are improved since our last visit, she continues on Lantus insulin consistently We discussed continuing current dose of Lantus, currently at 36u daily Nissa is interested in noninsulin therapy that would also help with weight loss, modest weight loss may help Nissa be more comfortable physically, we discussed Ozempic in particular and the mechanism of action as well as possible side effects were reviewed in detail, Nissa has a h/o GERD and has noted early satiety after higher fat meals, we discussed how these would be affected by a medication like Ozempic Nissa is encouraged to continue her efforts at following a healthy balanced diet Nissa is advised that she is likely to require less insulin if she is able to afford and tolerate GLP1ra therapy, advised to monitor glucose patterns on waking and as needed and to contact us with any questions, we discussed the likely benefit of CGM technology and Nissa is very interested in this, she is advised that since she is using insulin this technology should be covered for her, order will be sent to [employer] Nissa is advised to contact us with any questions or concerns and also to contact us when she receives her CGM supplies and we will help her get started on this, she has an upcoming appt with Mignon Robles in December and we will follow up in 5-6 months Assessment & Plan (05/12/2022 10:01 AM EST): Nissa's glucose patterns are worsened since our last visit but have improved since her cortisone shot several weeks ago and increase in Lantus per her report, FPG are consistently above target range in mid 100s and random glucose readings are consistently elevated We discussed a modest increase in Lantus again to 28 units daily, advised to continue to try to take this as consistently as she can We discussed likely reasons for worsened glucose control, increase in insulin resistance due to worsened pain and poor sleep, we discussed importance of adequate pain management and given information about Dr. Kurt Tolliver as a possible resource for evaluation for pain management, Nissa will discuss this with her PCP Nissa is encouraged to continue her efforts at following a healthy balanced diet We revisited impact of improved sleep on glucose control, as her pain is better controlled and she is able to get better quality sleep, she is likely to require less insulin, advised to monitor glucose patterns on waking closely and to contact us with any questions, we will follow up in 5-6 months Assessment & Plan (02/14/2022 4:15 PM EDT): Educated to check blood glucose 2-3 times daily for the first 48-72 hours following the right trochanteric bursa steroid injection and adjust insulin dosing appropriately. Assessment & Plan (11/04/2021 10:16 AM EDT): Nissa's glucose blood sugar patterns are very reassuring, FPG are consistently in good range as are random glucose readings Glucose data indicates stable control, largely in good range, A1c is improved Doing well off Actos and on basal insulin only at modest dose Nissa is consistent with once daily basal insulin dosing, we discussed best ways to schedule this so that it is consistent and convenient We discussed possible impact of Cymbalta on blood sugar control, Cymbalta can lead to lower blood sugars in some people, this may be a reason for Nissa's improved A1c, she is now off Cymbalta as a trial to see if this was increasing GERD symptoms and worsening cough, advised to watch for any rise in glucose and more so to be aware of the lowering potential if she resumes Cymbalta and certainly if dosage is optimized Nissa is encouraged to continue her efforts at following a healthy balanced diet We revisited impact of improved sleep on glucose control, Nissa has been struggling with a cough which she feels is related to her CPAP, she has a follow up with sleep med next month Advised to contact me with any questions or concerns, we will follow up in 6 months Assessment & Plan (06/24/2021 11:20 AM EST): Nissa's glucose blood sugar patterns are very reassuring, FPG are consistently in good range Glucose data indicates stable control, largely in good range, A1c has risen compared to last result on file but indicates reasonable control Nissa is tolerating Actos 15mg daily well, however she would like to lower her medication burden and may have experienced some weight gain, we discussed trialing off this medication and watching glucose patterns, if these rise then we can optimize insulin which is at very modest dose currently Nissa is consistent with once daily basal insulin dosing, we discussed that according to most recent Medicare CGM coverage criteria, she is eligible for a personal CGM and she would like to proceed with an order for this Nissa is encouraged to continue her efforts at following a healthy balanced diet We revisited impact of improved sleep on glucose control, Nissa has been struggling with her CPAP and has called to order a different mask which will hopefully prove more comfortable/effective Struggling with activity due to chronic pain, encouraged to continue to do her best with this as tolerated Advised to contact me with any questions or concerns, we will follow up in 6 months Assessment & Plan (06/01/2021 9:08 AM EST): Faridehs glucose is steadily and naturally improving following inititial hyperglycemic spikes from regional steroid injections and contrast dye with imaging in March. Present average glucose is 163 versus 289 one month ago. Has been able to titrate Lantus to 10 units with an average FPG of 150. Continues on Actos. Discussed maintaining present dose of basal insulin for a target FPG of 110 -130 on most days and titrate down gradually if lower. Later day glucose elevations noted to 180-220. Reviewed healthy diet choices and gentle seated exercises for later in day as tolerates. No further imaging or steroid injections in the near future. Encouraged to continue to make healthy diet choices and remain as physically active as tolerates. Encouraged to contact us with any concerns or question and follow up [address] Lewis. Assessment & Plan (05/06/2021 1:13 PM EST): Nissa returns with slowly resolving hyperglycemia treated with low dose Lantus and Actos following orthopedic steroid injections 2 weeks ago. Her glucose has gone from upper 300s and 400s to 200's, despite a small bump in sugars following use of contrast dye with imaging. Discussed how to titrate Lantus down by small increments when FPG initially is 130s - 160s every few days. May increase to 10-12 units night before next CT scan with dye then after 2-3 days start weaning back down as indicated by glucose. Reviewed hypoglycemia prevention, recognition and management. Encouraged to continue to make healthy diet choices and remain as physically active as tolerates. Encouraged to contact us with any concerns or question and follow up in 3 weeks. Assessment & Plan (04/21/2021 12:07 PM EST): Nissa presents today for an urgent visit due to hyperglycemia following recent steroid injections due to pain in joints 2 weeks ago as well as 2 days ago. A1C earlier in this fall was 6.5% with stable glucose control and is presently 7.5% today. Her recent glucose over the last two days has increased to 400s to 500s with FPG in upper 300s. To upper 400s. Denies noticing new onset of symptoms of hyperglycemia other than some mild forgetfulness and moderate fatigue. Plan- Initiate low dose basal insulin therapy short term. Discussed to contact us if glucose remains >400 Education provided on how to titrate down with initial goal FPG 120-140. Goal for insulin to remain short term during period of steroid injections. Monitor blood sugars at least twice daily and preferably more frequently during this period Nissa is tolerating Actos 15mg daily well, we did not adjust her dosage today Nissa is encouraged to continue her efforts at following a healthy balanced diet and especially modify her refined carb intake for the short term Encouraged to stay active as tolerated, Nissa has been doing well with this Advised to contact us with any questions or concerns, we will follow up in 2 weeks Assessment & Plan (04/04/2020 3:18 PM EST): Glucose data indicates much improved control Nissa is tolerating Actos 15mg daily well, we did not adjust her dosage today Nissa is encouraged to continue her efforts at following a healthy balanced diet Advised to contact me with any questions or concerns Assessment & Plan (01/29/2020 12:56 PM EDT): Unfortunately the sensor Nissa wore over the summer did not have any usable data for us to review Nissa has been self monitoring blood sugars routinely and unfortunately these have been high in the recent past Based on recent blood sugars it is unlikely that Nissa will be able to manage her control without medications, her A1c is only 7.4% however if her current patterns persist I expect this will continue to rise We discussed the possible value of Pioglitazone in improving blood sugar control by improving insulin sensitivity and also having a positive effect on liver histology with respect to LOPEZ, Nissa is willing to give this a try, we discussed common side effects We discussed the effect of pain on blood sugar control and Nissa is encouraged to medicate her pain so that this doesn't affect her glycemic control and also allows her to be more active which will in turn also help blood sugar patterns Encouraged to continue efforts at eating healthy diet We will be in touch with Nissa in 2 weeks to see how she is doing and she is also advised to call with any questions or concerns Assessment & Plan (09/22/2019 10:13 AM EDT): CGM Trial Type of Diabetes: Diabetes mellitus Type 2 Assessment/HPI: Meron is here today for CGM trial. Procedures: Glucose Monitoring: Type of Sensor: Mely Pro Instruction: Patient Instructed on:, Calibrations, When to test BS, Troubleshooting, What to expect with the sensor, Patient instructed to remove sensor if redness, pain or bleeding occurs. . Insertion Site Selected: left arm Site Prep: Insertion site wiped with alcohol. Insertion: completed, area looks good, no redness, no bleeding. Plan: Procedure Codes: 73453 Glucose monitoring, cont Assessment & Plan (09/20/2019 9:32 PM EDT): Lifestyle management of diabetes however A1c has been >8% since last fall, blood sugar data indicates suboptimal control We discussed the value of a CGM evaluation to assess overall glucose patterns, this will help up in considering the medication best suited to Nissa's needs, Nissa will return to have this placed in our office next week so that we can reevaluate this prior to her surgery CGM eval will give a better assessment of overall diabetes related surgical risk than A1c determination and as this relates to healing and recovery Nissa is limited in her ability to be active and her upcoming surgery may ultimately be very helpful for this, with increased activity she will likely see improvement in insulin sensitivity and overall glucose control We discussed the importance of healthy eating, Nissa will return to meet with Mignon Robles again for follow up We discussed the likely benefit in having food allergies reassessed in that eating foods that may impact absorption of nutrients and/or may cause exacerbation of inflammation may worsen glucose control Nissa is encouraged to call with any questions or concerns Abnormal echocardiogram 12/23/2018 Overview (12/23/2018): Right ventricular thickening Assessment & Plan (01/31/2021 8:55 AM EDT): Cardiac MRI with no significant abnormalities and no evidence for infiltrative process. Would defer to rheumatology if any further monitoring is recommended. Assessment & Plan (12/23/2018 12:24 PM EDT): Patient with no known intrinsic pulmonary disease and no evidence for pulmonary hypertension. Given history of FMF and possible diagnosis of hemochromatosis, cardiac MRI may be warranted. Will defer to cardiology service. Nocturnal hypoxemia 12/23/2018 Assessment & Plan (04/10/2023 10:26 AM EST): Cont CPAP with oxygen Assessment & Plan (02/28/2023 9:04 AM EST): Continue nocturnal supplemental oxygen with CPAP. Assessment & Plan (11/30/2022 10:16 AM EDT): Continues on overnight oxygen supplementation with her CPAP Assessment & Plan (11/04/2020 8:36 AM EDT): Transient desaturation on overnight oximetry from September. Suspect due to mask leak, or removal. Follow-up with Dr. Price. Assessment & Plan (12/23/2018 12:25 PM EDT): Long-standing history of nocturnal hypoxemia of unclear etiology. Recommend recheck overnight oximetry on room air. Request will be sent to [facility], her DME. Given excess daytime sleepiness, will also refer to Dr. Jono Randhawa for sleep medicine evaluation. History of arthroplasty of left shoulder 019 Primary osteoarthritis of right hip 04/29/2018 Assessment & Plan (04/10/2023 10:27 AM EST): Will see Ortho soon to discuss surgery Assessment & Plan (03/28/2023 9:17 AM EST): She had seen orthopedic surgeon at [facility] and upon reviewing x- rays decided to proceed with R THR in June 2023. Avoid falls, injuries, overuse. Continue proper calcium vitamin D supplementation. Assessment & Plan (06/18/2018 9:00 AM EST): Reviewed x-ray and it was normal. I suspect the pain in the left thigh and groin is coming from the lower lumbar facet arthropathy. Assessment & Plan (04/29/2018 8:49 AM EST): Exam discloses decreased and painful range of motion. 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 Obtain an x-ray. Get back to her by phone call. Osteoarthritis of both thumbs 04/29/2018 Assessment & Plan (02/18/2020 12:33 PM EST): She is to use enlarged certified personal trainer on tools and utensils and judicious use of warmth and when necessary intra-articular cortisone. Assessment & Plan (01/01/2019 9:15 AM EDT): Consider intra-articular steroids at a later date. In the meanwhile warmth, pain medication, bracing for the first carpometacarpal joints as needed, possible referral to hand OT, large property management coordinator on tools utensils. Assessment & Plan (09/30/2018 8:27 AM EDT): Good response to intra-articular steroids on last visit but will hold off on corticosteroids today given recent spate of injections and planned new injection for spinal arthritis next month. Enlarged certified personal trainer on tools and utensils and the judicious use of warmth as well as future injections when necessary. Assessment & Plan (04/29/2018 8:49 AM EST): Enlarged certified personal trainer on tools and utensils, basilar thumb splints to be obtained [id number], Voltaren gel once or twice daily as needed, follow-up phone call one week for possible intra-articular steroid injections. Osteopenia 04/29/2018 Assessment & Plan (09/29/2024 9:09 AM EDT): According to most recent bone density from 05/17/2023 mild osteopenia therefore continue proper calcium and vitamin D supplementation, daily weightbearing exercises as tolerated. If not able to weight-bear try to do sitting exercises using weights on her arms and ankles as tolerated. Fall and fracture prevention strategies reviewed and strongly encouraged. Assessment & Plan (04/02/2024 8:31 AM EST): According to most recent bone density from 05/17/2023 mild osteopenia therefore continue proper calcium and vitamin D supplementation, daily weightbearing exercises as tolerated. If not able to weight-bear try to do sitting exercises using weights on her arms and ankles as tolerated. Fall and fracture prevention strategies reviewed and strongly encouraged. Assessment & Plan (10/07/2023 3:26 PM EDT): According to most recent bone density from 05/17/2023 mild osteopenia therefore continue proper calcium and vitamin D supplementation, daily weightbearing exercises as tolerated. If not able to weight-bear try to do sitting exercises using weights on her arms and ankles as tolerated. Fall and fracture prevention strategies reviewed and strongly encouraged. Assessment & Plan (03/28/2023 9:14 AM EST): According to most recent bone density from 12/28/2020 mild osteopenia therefore continue proper calcium and vitamin D supplementation, daily weightbearing exercises as tolerated. Interval BMD requested preferably prior to planned R THR to make sure that she does not require additional bone preserving therapy, if possible, otherwise after recovering from R THR. If not able to weight-bear try to do sitting exercises using weights on her arms and ankles as tolerated. Fall and fracture prevention strategies reviewed and strongly encouraged. Assessment & Plan (05/17/2021 10:00 AM EST): According to most recent bone density from 12/28/2020 mild osteopenia therefore continue proper calcium and vitamin D supplementation, daily weightbearing exercises as tolerated. If not able to weight-bear try to do sitting exercises using weights on her arms and ankles as tolerated. Fall and fracture prevention strategies reviewed and strongly encouraged. Assessment & Plan (11/01/2020 11:30 AM EDT): Previous bone density reviewed. Fall and fracture prevention strategies and compliance with vitamin D was discussed. New bone density ordered. Results for orders placed or performed during the hospital encounter of 04/22/18 (from the past 58905 hour(s)) DXA Monitoring Narrative This is a 67-year-old postmenopausal female with a history of osteopenia. Compared with the previous exam 08/19/2014. Evaluation of the lumbar spine and both hips is obtained and appears technically adequate. The lumbar spine from L1 through L4 discloses a total bone mineral density of 0.969 g/cm2 with a T-score of -0.7. This is in the normal range. This represents a statistically significant bone mineral density change of 5.4% from 08/19/2014. The right hip has a total bone mineral density of 0.853 g/cm2 with a T-score of -0.7. This is in the normal range. No change from prior. The left hip has a total bone mineral density of 0.858 g/cm2 for a T-score of - 0.7. This is in the normal range. No significant change from prior. Lateral instant vertebral imaging is no performed. Impression Statistically significant bone mineral density gain in the lumbar spine since 08/19/2014. Bone mineral density at all three sites now within normal limits. POS -[email or web address] Assessment & Plan (06/28/2020 10:09 AM EDT): Mild vertebral osteopenia is stable. No need for bone density repeat right now. Fall and fracture prevention strategies discussed. Continue vitamin D3 1000 units daily. Results for orders placed or performed during the hospital encounter of 01/07/19 (from the past 87138 hour(s)) DXA Monitoring Narrative This is a 67-year-old postmenopausal female with a history of osteopenia. Compared with the previous exam 08/19/2014. Evaluation of the lumbar spine and both hips is obtained and appears technically adequate. The lumbar spine from L1 through L4 discloses a total bone mineral density of 0.969 g/cm2 with a T-score of -0.7. This is in the normal range. This represents a statistically significant bone mineral density change of 5.4% from 08/19/2014. The right hip has a total bone mineral density of 0.853 g/cm2 with a T-score of -0.7. This is in the normal range. No change from prior. The left hip has a total bone mineral density of 0.858 g/cm2 for a T-score of - 0.7. This is in the normal range. No significant change from prior. Lateral instant vertebral imaging is no performed. Impression Statistically significant bone mineral density gain in the lumbar spine since 08/19/2014. Bone mineral density at all three sites now within normal limits. POS -[email or web address] Assessment & Plan (02/18/2020 12:32 PM EST): Fall and fracture prevention strategies and maintenance of vitamin D3 at 2000 units daily was discussed. Assessment & Plan (11/18/2019 3:07 PM EDT): Previous bone densitometry reviewed. Fall and fracture prevention strategies discussed. Vitamin D3 at 2000 units daily will remain. 25-hydroxy vitamin D level will be measured. Results for orders placed or performed during the hospital encounter of 04/22/18 (from the past 16367 hour(s)) DXA Monitoring Narrative This is a 67-year-old postmenopausal female with a history of osteopenia. Compared with the previous exam 08/19/2014. Evaluation of the lumbar spine and both hips is obtained and appears technically adequate. The lumbar spine from L1 through L4 discloses a total bone mineral density of 0.969 g/cm2 with a T-score of -0.7. This is in the normal range. This represents a statistically significant bone mineral density change of 5.4% from 08/19/2014. The right hip has a total bone mineral density of 0.853 g/cm2 with a T-score of -0.7. This is in the normal range. No change from prior. The left hip has a total bone mineral density of 0.858 g/cm2 for a T-score of - 0.7. This is in the normal range. No significant change from prior. Lateral instant vertebral imaging is no performed. Impression Statistically significant bone mineral density gain in the lumbar spine since 08/19/2014. Bone mineral density at all three sites now within normal limits. POS -[email or web address] Assessment & Plan (09/30/2018 8:28 AM EDT): Reviewed bone densitometry. Quite satisfying to see stability and basically normal study with mild vertebral osteopenia. Fall and fracture prevention strategies discussed. New bone densitometry in 4 years. Results for orders placed or performed during the hospital encounter of 04/22/18 (from the past 16312 hour(s)) DXA Monitoring Narrative This is a 67-year-old postmenopausal female with a history of osteopenia. Compared with the previous exam 08/19/2014. Evaluation of the lumbar spine and both hips is obtained and appears technically adequate. The lumbar spine from L1 through L4 discloses a total bone mineral density of 0.969 g/cm2 with a T-score of -0.7. This is in the normal range. This represents a statistically significant bone mineral density change of 5.4% from 08/19/2014. The right hip has a total bone mineral density of 0.853 g/cm2 with a T-score of -0.7. This is in the normal range. No change from prior. The left hip has a total bone mineral density of 0.858 g/cm2 for a T-score of - 0.7. This is in the normal range. No significant change from prior. Lateral instant vertebral imaging is no performed. Impression Statistically significant bone mineral density gain in the lumbar spine since 08/19/2014. Bone mineral density at all three sites now within normal limits. POS -[email or web address] Assessment & Plan (04/29/2018 8:51 AM EST): Fall and fracture prevention strategies discussed. You vitamin D3. Need for pharmacologic intervention. The bone densitometry in 3 years. This month bone density and compared to previous one showing stable osteopenia of the lumbar spine with a mean T score of -1.5 and a left hip T score of -0.7 and a right hip T score of - 0.7. Skin papilloma 03/21/2018 Overview (03/21/2018): Left nipple Assessment & Plan (03/21/2018 2:29 PM EST): Left nipple Fibromyalgia 07/11/2017 Assessment & Plan (05/21/2024 9:49 AM EST): Assessment & Plan (03/07/2022 3:27 PM EST): Pain continue to bother significantly. Cymbalta increased today Assessment & Plan (02/18/2020 12:33 PM EST): Active but stable fibromyalgia and the patient continues to have morning stiffness and nighttime pain and generalized fatigue. She may continue on cyclobenzaprine at night, vitamin D3, hydrocodone as needed, and Pepcid as a gastroprotective agent as needed. She will continue to walk for about 30 minutes daily when the weather permits. Assessment & Plan (11/18/2019 3:08 PM EDT): I suspect she will see some improvement in her overall fibromyalgia now that she has a spinal cord stimulator implanted. She also likely will be able to reduce her dependence on narcotics. Other medications will continue unchanged and she may continue to use the cyclobenzaprine at bedtime. Assessment & Plan (04/29/2018 8:52 AM EST): Still with multiple tender points morning stiffness and generalized pain. Continue acetaminophen not exceeding 1500 mg daily. Continue cyclobenzaprine 10 mg nightly as needed. Unable to afford Lyrica. During current evaluation of increased vertigo probably better that she stays off Lyrica anyway. We will revisit this on the next visit. Assessment & Plan (12/19/2017 8:42 AM EDT): Generalized fatigue, morning stiffness, multiple tender points on exam are all suggestive of active fibromyalgia. Spent greater than 50% of this 28-minute visit discussing natural history and treatment of fibromyalgia, the need for a low inflammatory Mediterranean style diet, and as she progresses with physical therapy the need to pay attention to cardiovascular exercise. Stress reduction techniques discussed. Assessment & Plan (07/11/2017 3:14 PM EDT): Chronic fatigue, morning stiffness, global body pain and multiple tender points on exam points active fibromyalgia. No signs of vasculopathy or inflammatory arthritis. Medications will remain unchanged for now. Vitamin D compliance at 1000 units daily was encouraged. 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 Assessment & Plan (05/21/2024 9:49 AM EST): Assessment & Plan (04/02/2024 8:31 AM EST): Carefully continue daily colchicine 0.3 mg that controlled the disease outbreaks for her in the past provided LFTs remain within normal limits. Assessment & Plan (10/01/2023 8:53 AM EDT): Carefully continue daily colchicine 0.3 mg that controlled the disease outbreaks for her in the past provided LFTs remain within normal limits. Assessment & Plan (04/10/2023 10:27 AM EST): FU with Rheum Assessment & Plan (03/28/2023 8:25 AM EST): Carefully re-start daily colchicine 0.3 mg that controlled the disease outbreaks for her in the past provided LFTs remain within normal limits. Assessment & Plan (09/25/2022 9:06 AM EDT): Carefully continue daily colchicine 0.6 mg that controls the disease outbreaks for her. Assessment & Plan (05/25/2022 8:35 AM EST): Carefully continue daily colchicine 0.6 mg that controls the disease outbreaks for her. Assessment & Plan (01/19/2022 8:11 AM EDT): Carefully continue daily colchicine 0.6 mg that controls the disease outbreaks for her. 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 There was a major side effect between colchicine and diltiazem. She has been placed on metoprolol and is doing well on the medication. Assessment & Plan (10/12/2021 9:03 AM EDT): She takes colchicine for the familial Mediterranean fever. She tells me that she needs the medication and is unwilling to come off of it. Unfortunately, there was a major drug interaction with the colchicine and the diltiazem. She has come off of the diltiazem. We will follow-up on her heart rate and blood pressure in 1 to 2 months. Assessment & Plan (09/19/2021 8:40 AM EDT): Carefully continue daily colchicine 0.6 mg that controls the disease outbreaks for her. Assessment & Plan (05/17/2021 9:51 AM EST): Carefully continue daily colchicine 0.6 mg that controls the disease outbreaks for her. Assessment & Plan (01/12/2021 8:44 AM EDT): Stable on colchicine treatment with good tolerance and no flares. As needed hydrocodone is used rarely. Quite stable. Laboratory work reviewed. Nutrition on 12/27/2020 Component Date Value Ref Range Status Hemoglobin A1c 12/27/2020 6.5* 4.2 - 5.8 % Final Assessment & Plan (11/01/2020 11:30 AM EDT): Stable on colchicine without evidence of acute abdominal pain melena hematochezia or fever. Doing well. Assessment & Plan (10/26/2020 11:34 AM EDT): Cont w Dr Becerra Assessment & Plan (06/28/2020 10:08 AM EDT): She has been stable. No signs or symptoms of secondary amyloidosis. No signs or symptoms of colchicine toxicity. May continue 0.6 mg daily. Lab work will be checked prior to next visit and previous lab work was reviewed in detail. Hospital Outpatient Visit on 04/06/2020 Component Date Value Ref Range Status TSH 04/06/2020 0.84 0.27 - 4.20 uIU/mL Final HDL 04/06/2020 50 mg/dL Final Comment: Interpretation <40 mg/dL: Low HDL cholesterol (major risk factor for CHD) Greater than or equal to 60 mg/dL: High HDL cholesterol ( negative risk factor for CHD) HDL - cholesterol is affected by a number of factors, e.g. smoking, excerise, hormones, sex and age. CHOLESTEROL 04/06/2020 180 0 - 240 mg/dL Final TRIGLYCERIDES 04/06/2020 162* 30 - 160 mg/dL Final LDL 04/06/2020 98 50 - 129 mg/dL Final Comment: LDL levels in terms of risk for coronary heart disease: <100 mg/dL: Optimal 100-129 mg/dL: Near or above optimal 130-159 mg/dL: Borderline high 160-189 mg/dL: High >190 mg/dL: Very High CARDIAC RISK RATIO 04/06/2020 3.6 3.3 - 4.4 Final HEMOGLOBIN A1C 04/06/2020 7.3* 4.3 - 5.8 % Final SODIUM 04/06/2020 137 133 - 146 mmol/L Final POTASSIUM 04/06/2020 4.1 3.3 - 5.1 mmol/L Final CHLORIDE 04/06/2020 100 96 - 108 mmol/L Final CO2 04/06/2020 26 21 - 35 mmol/L Final BUN 04/06/2020 19 6 - 19 mg/dL Final CREATININE 04/06/2020 0.90 0.5 - 1.5 mg/dL Final GLUCOSE 04/06/2020 125* 70 - 99 mg/dL Final ALBUMIN 04/06/2020 4.5 3.9 - 4.8 g/dL Final TOTAL PROTEIN 04/06/2020 7.7 6.5 - 8.0 g/dL Final CALCIUM 04/06/2020 9.7 8.4 - 10.3 mg/dL Final ALKALINE PHOSPHATASE 04/06/2020 117 39 - 117 U/L Final TOTAL BILIRUBIN 04/06/2020 0.3 0.0 - 1.2 mg/dL Final AST 04/06/2020 28 0 - 37 U/L Final ALT 04/06/2020 35 0 - 40 U/L Final GLOBULIN 04/06/2020 3.2 1 - 4.8 g/dL Final EGFR 04/06/2020 66 >59 mL/min/1.73m2 Final Estimated glomerular filtration rate calculated using the CKD-EPI equation. ANION GAP 04/06/2020 15 10 - 20 mmol/L Final WBC 04/06/2020 6.83 4.00 - 11.00 K/uL Final Note Reference Range updates to all CBC and Differential results. RBC 04/06/2020 4.90 3.72 - 5.30 M/uL Final HGB 04/06/2020 14.9 11.4 - 15.9 g/dL Final Note updated Reference Ranges for all CBC and Differential results. HCT 04/06/2020 45.3 34.2 - 46.8 % Final PLT 04/06/2020 256 140 - 430 K/uL Final MCV 04/06/2020 92.4 78.0 - 97.0 fL Final MCH 04/06/2020 30.4 25.0 - 33.0 pg Final MCHC 04/06/2020 32.9 32.0 - 36.0 g/dL Final RDW 04/06/2020 13.0 11.0 - 16.0 % Final MPV 04/06/2020 11.9 8.4 - 12.8 fl Final NRBC 04/06/2020 0.00 0 /100 WBCs Final ABSOLUTE NRBC 04/06/2020 0.00 0 K/uL Final DIFF METHOD 04/06/2020 Auto Final NEUTS 04/06/2020 55.4 43.0 - 75.0 % Final LYMPHS 04/06/2020 34.1 18.2 - 47.4 % Final MONOS 04/06/2020 6.0 4.00 - 11.00 % Final EOS 04/06/2020 2.9 0.0 - 8.0 % Final BASOS 04/06/2020 0.9 0.0 - 2.0 % Final Granulocytes, immature (%) 04/06/2020 0.7 0.0 - 0.9 % Final ABSOLUTE NEUTS 04/06/2020 3.78 1.80 - 7.70 K/uL Final ABSOLUTE LYMPHS 04/06/2020 2.33 1.00 - 3.10 K/uL Final ABSOLUTE MONOS 04/06/2020 0.41 0.20 - 0.80 K/uL Final ABSOLUTE EOS 04/06/2020 0.20 0.00 - 0.80 K/uL Final ABSOLUTE BASOS 04/06/2020 0.06 0.00 - 0.09 K/uL Final Granulocytes, immature 04/06/2020 0.05 0.00 - 0.05 K/uL Final Assessment & Plan (11/18/2019 3:08 PM EDT): No flares of FMF. She will continue on colchicine 0.6 daily regularly. Laboratory work reviewed. Hospital Outpatient Visit on 11/05/2019 Component Date Value Ref Range Status ALKALINE PHOSPHATASE 11/05/2019 130* 39 - 117 U/L Final TOTAL BILIRUBIN 11/05/2019 0.3 0.0 - 1.2 mg/dL Final DIRECT BILIRUBIN 11/05/2019 <0.2 0 - 0.3 mg/dL Final Bilirubin (Indirect) 11/05/2019 NOT CALCULATED 0 - 1.5 mg/dL Final AST 11/05/2019 23 0 - 37 U/L Final ALT 11/05/2019 36 0 - 40 U/L Final TOTAL PROTEIN 11/05/2019 7.8 6.5 - 8.0 g/dL Final ALBUMIN 11/05/2019 4.7 3.9 - 4.8 g/dL Final GLOBULIN 11/05/2019 3.1 1 - 4.8 g/dL Final A/G Ratio 11/05/2019 1.52 1.00 - 4.80 RATIO Final Hospital Outpatient Visit on 10/01/2019 Component Date Value Ref Range Status PT 10/01/2019 11.6 10.2 - 12.9 sec Final INR 10/01/2019 1.0 0.9 - 1.1 Final Therapeutic range for oral Vitamin K antagonists: 2.0-3.5 HEMOGLOBIN A1C 10/01/2019 6.7* 4.3 - 5.8 % Final WBC 10/01/2019 7.35 4.00 - 11.00 K/uL Final Note Reference Range updates to all CBC and Differential results. RBC 10/01/2019 4.91 3.72 - 5.30 M/uL Final HGB 10/01/2019 15.3 11.4 - 15.9 g/dL Final Note updated Reference Ranges for all CBC and Differential results. HCT 10/01/2019 45.8 34.2 - 46.8 % Final PLT 10/01/2019 227 140 - 430 K/uL Final MCV 10/01/2019 93.3 78.0 - 97.0 fL Final MCH 10/01/2019 31.2 25.0 - 33.0 pg Final MCHC 10/01/2019 33.4 32.0 - 36.0 g/dL Final RDW 10/01/2019 12.3 11.0 - 16.0 % Final MPV 10/01/2019 12.9* 8.4 - 12.8 fl Final NRBC 10/01/2019 0.00 0 /100 WBCs Final ABSOLUTE NRBC 10/01/2019 0.00 0 K/uL Final DIFF METHOD 10/01/2019 Auto Final NEUTS 10/01/2019 57.1 43.0 - 75.0 % Final LYMPHS 10/01/2019 32.7 18.2 - 47.4 % Final MONOS 10/01/2019 7.1 4.00 - 11.00 % Final EOS 10/01/2019 1.8 0.0 - 8.0 % Final BASOS 10/01/2019 0.8 0.0 - 2.0 % Final Granulocytes, immature (%) 10/01/2019 0.5 0.0 - 0.9 % Final ABSOLUTE NEUTS 10/01/2019 4.20 1.80 - 7.70 K/uL Final ABSOLUTE LYMPHS 10/01/2019 2.40 1.00 - 3.10 K/uL Final ABSOLUTE MONOS 10/01/2019 0.52 0.20 - 0.80 K/uL Final ABSOLUTE EOS 10/01/2019 0.13 0.00 - 0.80 K/uL Final ABSOLUTE BASOS 10/01/2019 0.06 0.00 - 0.09 K/uL Final Granulocytes, immature 10/01/2019 0.04 0.00 - 0.05 K/uL Final SODIUM 10/01/2019 139 133 - 146 mmol/L Final CHLORIDE 10/01/2019 100 96 - 108 mmol/L Final POTASSIUM 10/01/2019 4.2 3.3 - 5.1 mmol/L Final CO2 10/01/2019 25 21 - 35 mmol/L Final BUN 10/01/2019 16 6 - 19 mg/dL Final CREATININE 10/01/2019 0.80 0.5 - 1.5 mg/dL Final GLUCOSE 10/01/2019 153* 70 - 99 mg/dL Final CALCIUM 10/01/2019 10.7* 8.4 - 10.3 mg/dL Final EGFR 10/01/2019 76 >59 mL/min/1.73m2 Final Estimated glomerular filtration rate calculated using the CKD-EPI equation. ANION GAP 10/01/2019 18 10 - 20 mmol/L Final Assessment & Plan (04/28/2019 10:30 AM EST): Recent lab work was reviewed and colchicine was renewed today. 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 Transcribe Orders on 03/05/2019 Component Date Value Ref Range Status SODIUM 03/05/2019 139 133 - 146 mmol/L Final POTASSIUM 03/05/2019 4.1 3.3 - 5.1 mmol/L Final CHLORIDE 03/05/2019 99 96 - 108 mmol/L Final CO2 03/05/2019 26 21 - 35 mmol/L Final BUN 03/05/2019 12 6 - 19 mg/dL Final CREATININE 03/05/2019 0.60 0.5 - 1.5 mg/dL Final GLUCOSE 03/05/2019 229* 70 - 99 mg/dL Final ALBUMIN 03/05/2019 4.6 3.9 - 4.8 g/dL Final TOTAL PROTEIN 03/05/2019 7.8 6.5 - 8.0 g/dL Final CALCIUM 03/05/2019 9.8 8.4 - 10.3 mg/dL Final ALKALINE PHOSPHATASE 03/05/2019 123* 39 - 117 U/L Final TOTAL BILIRUBIN 03/05/2019 0.4 0.0 - 1.2 mg/dL Final AST 03/05/2019 29 0 - 37 U/L Final ALT 03/05/2019 60* 0 - 40 U/L Final GLOBULIN 03/05/2019 3.2 1 - 4.8 g/dL Final EGFR 03/05/2019 95 >59 mL/min/1.73m2 Final If patient is black, multiply result by 1.159. Estimated glomerular filtration rate calculated using the CKD-EPI equation. ANION GAP 03/05/2019 18 10 - 20 mmol/L Final Assessment & Plan (01/01/2019 9:14 AM EDT): Stable with recurrent flares the last one being 3 weeks ago treated with an increased dose of colchicine which was renewed today. No toxicity from colchicine. Doing very well. Assessment & Plan (09/30/2018 8:27 AM EDT): Some GI toxicity perhaps from colchicine and FMF under good control. Try going 0.6 mg q. OD. Hospital Outpatient Visit on 09/23/2018 Component Date Value Ref Range Status HDL 09/23/2018 39 mg/dL Final Comment: Interpretation <40 mg/dL: Low HDL cholesterol (major risk factor for CHD) Greater than or equal to 60 mg/dL: High HDL cholesterol ( negative risk factor for CHD) HDL - cholesterol is affected by a number of factors, e.g. smoking, excerise, hormones, sex and age. CHOLESTEROL 09/23/2018 163 0 - 240 mg/dL Final TRIGLYCERIDES 09/23/2018 224* 30 - 160 mg/dL Final LDL 09/23/2018 79 50 - 129 mg/dL Final Comment: LDL levels in terms of risk for coronary heart disease: <100 mg/dL: Optimal 100-129 mg/dL: Near or above optimal 130-159 mg/dL: Borderline high 160-189 mg/dL: High >190 mg/dL: Very High CARDIAC RISK RATIO 09/23/2018 4.2 3.3 - 4.4 Final Hospital Outpatient Visit on 09/11/2018 Component Date Value Ref Range Status SODIUM 09/11/2018 136 133 - 146 mmol/L Final CHLORIDE 09/11/2018 95* 96 - 108 mmol/L Final POTASSIUM 09/11/2018 4.4 3.3 - 5.1 mmol/L Final CO2 09/11/2018 25 21 - 35 mmol/L Final BUN 09/11/2018 10 6 - 19 mg/dL Final CREATININE 09/11/2018 0.60 0.5 - 1.5 mg/dL Final GLUCOSE 09/11/2018 226* 70 - 99 mg/dL Final CALCIUM 09/11/2018 9.7 8.4 - 10.3 mg/dL Final EGFR 09/11/2018 95 >59 mL/min/1.73m2 Final If patient is black, multiply result by 1.159. Estimated glomerular filtration rate calculated using the CKD-EPI equation. ANION GAP 09/11/2018 20 10 - 20 mmol/L Final HFE Gene analysis 09/11/2018 SEE NOTE 09/16/2018 03:58 PM Final Comment: (NOTE) Test Result Flag Unit RefValue Hemochromatosis HFE Gene Analysis, B Result Summary COMPLEX (SEE RESULT AND INTERPRETATION) Result SEE NOTE C282Y: Not detected. 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 The diagnosis of HH cannot be excluded because approximately 2 to 4% of patients with HH in the [place] population carry this allele. However, this allele is also found in approximately 20 to 30% of unaffected individuals. For other ethnicities, the frequency of HH patients with this allele may d iffer. This assay does not rule out the presence of other disease-causing mutations in the HFE gene or in other genes associated with hemochromatosis. Genotyping results should be interpreted in the context of clinical findings, family history, and other laboratory testing (e.g. serum transferrin-iron saturation and serum ferritin). Genetic testing and other laboratory testing of an affected family member can determine if this result is of predictive value for this individual. A genetic consultation may be of benefit. ADDITIONAL INFORMATION An online research opportunity called [employer] ([employer]), a project of [employer], is available for the recipient of this genetic test. This patient registry collects de-identified genetic and health information to advance the knowledge of genetic variants. [facility] is a collaborator of [employer]. This m ay not be applicable for all tests. Test results should be interpreted in the context of clinical findings, family history, and other laboratory data. Misinterpretation of results may occur if the information provided is inaccurate or incomplete. Rare polymorphisms exist that could lead to false-negative or false-positive results. If results obtained do not match the clinical findings, additional testing should be considered. Bone Marrow transplants from allogenic donors will interfere with testing. Call [facility] for instructions for testing patients who have received a bone marrow transplant. Multiple in-silico evaluation tools may have been used to assist in the interpretation of these results. Of note, the sensitivity and specificity of these tools for the determination of pathogenicity is currently unvalidated. This test was developed and its performanc e characteristics determined by [facility] in a manner consistent with CLIA requirements. This test has not been cleared or approved by the U.S. Food and Drug Administration. Specimen WB Whole Blood Method SEE NOTE A multiplex PCR based assay utilizing the [employer] Array platform was used to test for the following three mutations in the HFE gene; C282Y, H63D, and S65C. Because of the minimal effect on iron metabolism associated with the S65C mutation, it is only reported when it is found with the C282Y mutation (i.e. if the patient has the C282Y/S65C genotype). Released By Andria Pemberton M.D., Ph.D. Hepatitis A Antibody, IgG 09/11/2018 Negative Final Comment: (NOTE) Result indicates no past exposure or immunity to hepatitis A infection. REFERENCE VALUE Unvaccinated: Negative Vaccinated: Positive HAV Ab, IgM 09/11/2018 Negative Negative Final Comment: (NOTE) Result does not exclude the possibility of exposure to hepatitis A virus. Antibody level during early infection stage may be below the limit of detection of the assay. [id number] 09/11/2018 192* 100 - 190 mg/dL Final PT 09/11/2018 12.1 10.2 - 12.9 sec Final INR 09/11/2018 1.1 0.9 - 1.1 Final Therapeutic range for oral Vitamin K antagonists: 2.0-3.5 SMOOTH MUSCLE AB 09/11/2018 POSITIVE AT 1:20 Final Normal: Negative at 1:20 MITOCHONDRIAL AB 09/11/2018 NEGATIVE AT 1:20 Final Normal: Negative at 1:20 SUKHWINDER SCREEN ON HEP 2 09/11/2018 Positive* Negative Final An SUKHWINDER Titer has been reflexed. The results will follow. HCV 09/11/2018 Negative Negative Final Comment: This is a screening test and should be confirmed with molecular testing HBV SURFACE ANTIGEN 09/11/2018 Negative Negative Final SUKHWINDER TITER 09/11/2018 1:40 Homogeneous Final 1:40 [facility] Outpatient Visit on 09/03/2018 Component Date Value Ref Range Status GGT 09/03/2018 287* 7 - 33 U/L Final ALKALINE PHOSPHATASE 09/03/2018 152* 39 - 117 U/L Final TOTAL BILIRUBIN 09/03/2018 0.4 0.0 - 1.2 mg/dL Final DIRECT BILIRUBIN 09/03/2018 <0.2 0 - 0.3 mg/dL Final Bilirubin (Indirect) 09/03/2018 NOT CALCULATED 0 - 1.5 mg/dL Final AST 09/03/2018 143* 0 - 37 U/L Final ALT 09/03/2018 243* 0 - 40 U/L Final TOTAL PROTEIN 09/03/2018 7.6 6.5 - 8.0 g/dL Final ALBUMIN 09/03/2018 4.3 3.9 - 4.8 g/dL Final GLOBULIN 09/03/2018 3.3 1 - 4.8 g/dL Final A/G Ratio 09/03/2018 1.30 1.00 - 4.80 RATIO Final IRON 09/03/2018 125 30 - 160 ug/dL Final IRON BINDING CAPACITY 09/03/2018 279 228 - 428 ug/dL Final TRANSFERRIN SATURAT. 09/03/2018 45 15 - 50 % Final FERRITIN 09/03/2018 616* 13 - 150 ug/L Final Assessment & Plan (06/18/2018 9:03 AM EST): She has had several flares but each time controlled with colchicine and she will continue to be treated with colchicine on an as-needed basis. Assessment & Plan (04/29/2018 8:50 AM EST): 2 minor flare is well controlled with colchicine. She will continue on 0.6 mg colchicine daily. Assessment & Plan (12/19/2017 8:41 AM EDT): Had one episode of severe abdominal pain and then she restarted the colchicine and felt better. I think she should remain on 0.6 mg of colchicine daily she has had no side effects. I requested can profile CBC and vitamin D level today. Assessment & Plan (07/11/2017 3:13 PM EDT): Marked by recurrent bouts of abdominal pain which has been well-controlled on 0.6 mg of colchicine daily. Assessment & Plan (04/11/2017 10:57 AM EST): This has been flaring lately with nausea vomiting and diarrhea. She has started the colchicine and 0.6 mg twice daily and will continue this along with replenishment of her fluids. Spinal enthesopathy of lumbosacral region 2016 Overview (05/21/2024): Stimulator in in 2019 Assessment & Plan (09/29/2024 9:09 AM EDT): Reviewed MRI and lumbosacral spine x-rays indicating diffuse and moderately severe facet arthropathy and discogenic disease. She has failed to respond completely to pain medication and anti-inflammatories and she is going for an implanted stimulator next month. Pain medication will continue unchanged. It is quite effective. No obvious signs of neurogenic claudication. Assessment & Plan (05/21/2024 9:49 AM EST): Assessment & Plan (04/02/2024 8:31 AM EST): Reviewed MRI and lumbosacral spine x-rays indicating diffuse and moderately severe facet arthropathy and discogenic disease. She has failed to respond completely to pain medication and anti-inflammatories and she is going for an implanted stimulator next month. Pain medication will continue unchanged. It is quite effective. No obvious signs of neurogenic claudication. Assessment & Plan (10/01/2023 8:53 AM EDT): Reviewed MRI and lumbosacral spine x-rays indicating diffuse and moderately severe facet arthropathy and discogenic disease. She has failed to respond completely to pain medication and anti-inflammatories and she is going for an implanted stimulator next month. Pain medication will continue unchanged. It is quite effective. No obvious signs of neurogenic claudication. Assessment & Plan (09/25/2022 9:05 AM EDT): Reviewed MRI and lumbosacral spine x-rays indicating diffuse and moderately severe facet arthropathy and discogenic disease. She has failed to respond completely to pain medication and anti-inflammatories and she is going for an implanted stimulator next month. Pain medication will continue unchanged. It is quite effective. No obvious signs of neurogenic claudication. Assessment & Plan (04/28/2019 10:31 AM EST): Reviewed MRI and lumbosacral spine x-rays indicating diffuse and moderately severe facet arthropathy and discogenic disease. She has failed to respond completely to pain medication and anti-inflammatories and she is going for an implanted stimulator next month. Pain medication will continue unchanged. It is quite effective. No obvious signs of neurogenic claudication. Assessment & Plan (04/29/2018 8:50 AM EST): She used to see Dr. Laguerre for pain management of her spinal issues and I am referring her to Dr. Cedillo if he will be covered under her insurance plan and she will get back to me on this. Assessment & Plan (04/11/2017 10:57 AM EST): Patient is having a flare of lumbosacral spinal enthesopathy left sided which will be treated with relative rest, and injection into the most tender area today. Primary osteoarthritis of right knee 04/11/2017 Assessment & Plan (06/03/2022 5:02 PM EST): Joint protection, energy conservation. Gentle, regular exercise routine. Avoid falls, injuries, overuse. Work on bringing her body weight into ideal range for her height. She may benefit from topical cream such as Arnica, Biofreeze, Aspercreme versus medicated patches such as salonpas, icy hot patch 2-3 times daily and if necessary at bedtime x 3 weeks. Assessment & Plan (11/01/2020 11:29 AM EDT): Corticosteroid injection today. Assessment & Plan (06/28/2020 10:09 AM EDT): Reviewed bilateral knee x-rays indicating chondrocalcinosis and tricompartmental osteoarthritis. Quadricep strengthening, well fitting supportive shoes with good shock absorption, weight reduction and if necessary intra-articular cortisone or viscosupplementation. We discussed this in detail. Assessment & Plan (07/14/2019 8:47 AM EDT): Administer 2 cc Synvisc right knee. Assessment & Plan (07/07/2019 9:59 AM EDT): Second Synvisc injection today. Assessment & Plan (06/30/2019 9:16 AM EDT): First injection of Synvisc today. Assessment & Plan (04/28/2019 10:30 AM EST): Patient has compartmental osteoarthritis of both knees along with chondrocalcinosis on x-ray which are reviewed with her today. She also has subchondral sclerosis and diffuse osteophytosis. After full discussion of risks and benefits and considering failure with more conservative treatment is going to set her up for bilateral Visco supplementation with Synvisc. She will be given literature to read about this today. She will continue to wear well fitting supportive shoes with good shock absorption and quadricep strengthening bilaterally. Assessment & Plan (01/01/2019 9:14 AM EDT): Symptomatic with pain and stiffness but no evidence of instability. Obtain bilateral knee x-rays today in a weightbearing fashion. Discussed well fitting supportive shoes with good shock absorption, quadricep strengthening, weight control. Avoid corticosteroids in this patient with early diabetes and who had just had 3 epidural injections. She may be a candidate for Visco supplementation. I will report back to her. Hyperlipidemia 04/10/2017 Assessment & Plan (11/17/2024 11:54 AM EDT): Most recent lipid panel reviewed, LDL is in good range and near optimal goal (<70), TG continues to be elevated Continues on moderate intensity statin therapy Follows with cardiology Assessment & Plan (05/21/2024 9:49 AM EST): Orders: Lipid panel; Future Assessment & Plan (05/09/2024 10:10 AM EST): Most recent lipid panel reviewed, LDL is at goal, TG is elevated Continues on moderate intensity statin therapy Follows with cardiology Assessment & Plan (04/23/2023 9:17 PM EST): Most recent lipid panel reviewed, LDL is at goal, TG is elevated Continues on moderate intensity statin therapy Follows with cardiology Assessment & Plan (01/24/2023 9:25 AM EDT): Continue statin. Assessment & Plan (10/16/2022 10:26 AM EDT): Most recent lipid panel reviewed, LDL is near optimal goal, TG is elevated Continues on moderate intensity statin therapy Follows with cardiology Assessment & Plan (10/10/2022 1:43 PM EDT): Lipids are controlled. Continue statin. Assessment & Plan (07/05/2022 8:27 AM EDT): Most recent lipid panel shows an LDL of 73, controlled. Continue with current dose of statin. Assessment & Plan (05/12/2022 9:57 AM EST): Most recent lipid panel reviewed, LDL is near optimal goal, TG is elevated Continues on moderate intensity statin therapy Follows with cardiology Assessment & Plan (01/04/2022 9:13 AM EDT): Her LDL is excellent on her current dose of atorvastatin. Assessment & Plan (12/12/2021 1:01 PM EDT): Switch from pravastatin to atorvastatin, repeat lipid panel @ [facility] to evaluate dose Assessment & Plan (11/04/2021 10:13 AM EDT): Most recent lipid panel reviewed, LDL is at goal, TG is elevated Continues on moderate intensity statin therapy Assessment & Plan (10/12/2021 9:03 AM EDT): We will repeat a lipid panel. I will follow-up with her after that has been completed. Assessment & Plan (06/24/2021 11:11 AM EST): Most recent lipid panel available for review is from late 2019, this was near goal Continues on moderate intensity statin therapy Assessment & Plan (06/01/2021 9:00 AM EST): No recent labs with last LDL near goal Continues on moderate intensity statin therapy Assessment & Plan (05/06/2021 12:23 PM EST): No recent labs with last LDL near goal Continues on moderate intensity statin therapy Assessment & Plan (04/21/2021 11:30 AM EST): No recent labs with last LDL near goal Continues on moderate intensity statin therapy Assessment & Plan (09/27/2020 10:35 AM EDT): Most recent lipid panel reviewed, LDL is near goal Continues on pravastatin at moderate intensity Assessment & Plan (01/29/2020 12:49 PM EDT): Most recent lipid panel reviewed, LDL is at goal Continues on pravastatin at moderate intensity Assessment & Plan (09/20/2019 9:24 PM EDT): Most recent lipid panel reviewed, LDL is at goal Continues on pravastatin at moderate intensity Primary osteoarthritis of left shoulder 03/15/20 12 Overview (06/06/2014): Osteoarthritis of shoulder Assessment & Plan (06/28/2020 10:09 AM EDT): Recent flare with spontaneous resolution. Understands that she must live around this discomfort and avoid doing any sustained work above her head or chest level. For any more sustained flares we may use intra-articular cortisone if necessary. 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 Follow-up with Dr. Jenkins next month. Doing well in this regard. Assessment & Plan (12/19/2017 8:41 AM EDT): Now status post left total shoulder replacement and doing well with rehab. Continue with hydrocodone as needed. Assessment & Plan (07/11/2017 3:14 PM EDT): She had a fluoroscopically guided corticosteroid injection done by Dr. Jenkins which gave her limited relief so she is going to have total shoulder arthroplasty done in approximately 3 weeks. Assessment & Plan (04/11/2017 10:57 AM EST): Severe limitation in range of motion but she is scheduled for total shoulder replacement in 4 months. Hypertension Assessment & Plan (11/17/2024 11:47 AM EDT): Blood pressure is elevated today Previously had side effects to ACEi, if no contraindication to ARB then this would be preferred antihypertensive in light of diabetes If Nissa is able to optimize her activity and pain is better controlled then blood pressure is likely to improve as well Assessment & Plan (05/21/2024 9:49 AM EST): Assessment & Plan (05/09/2024 10:13 AM EST): Blood pressure remains in very good control Previously had side effects to ACEi, if no contraindication to ARB then this would be preferred antihypertensive in light of diabetes Assessment & Plan (04/23/2023 9:15 PM EST): Blood pressure is in very good control today Previously had side effects to ACEi, if no contraindication to ARB then this would be preferred antihypertensive in light of diabetes Assessment & Plan (01/24/2023 9:25 AM EDT): Well-controlled at this time. Assessment & Plan (11/30/2022 9:20 AM EDT): Controlled Assessment & Plan (10/16/2022 10:33 AM EDT): Blood pressure is in good control today Recent increase in diuretic therapy, advised to monitor blood pressure at home due to increase in dizziness Advised to hydrate well Encouraged to reach out to cardiology if dizziness symptoms persist Previously had side effects to ACEi Assessment & Plan (10/10/2022 1:47 PM EDT): Blood pressure in the office today is elevated. I have suggested that she increase her HCTZ to 25 mg once daily. I will follow-up with her in 3 mo Assessment & Plan (07/05/2022 8:26 AM EDT): Blood pressure in the office today is adequately controlled. No medication changes for now. Assessment & Plan (05/12/2022 9:55 AM EST): Blood pressure is well controlled today Had could related to ACEi therapy, now on BBlocker Follows with cardiology Assessment & Plan (01/04/2022 9:14 AM EDT): Her blood pressure in the office today is adequately controlled on her current medications. She was placed on an ISMA inhibitor but had a cough from that. She is now on metoprolol and tolerating the medication. Assessment & Plan (11/04/2021 10:11 AM EDT): Blood pressure is well controlled today Started on ACEi recently, has had worsened cough since this though reports issues with cough prior to starting ACEi May benefit from trial of ARB but would prefer to discuss with cardiology team since her blood pressure is so much better on ACEi Assessment & Plan (10/12/2021 9:01 AM EDT): Her blood pressure in the office today is normal on her current medications. Unfortunately, there is a major side effect listed with colchicine and diltiazem. I have suggested that she stop the diltiazem and start lisinopril. She tells me that years ago, she had an elevated heart rate. I am not sure about the details of that but if her heart rate is elevated at her next follow-up, we will have to consider starting her on a beta-derek. Assessment & Plan (06/24/2021 11:13 AM EST): Blood pressure is elevated today Continues on regimen of diuretic and CCB therapy, likely to benefit from ACEi or ARB to optimize bp and provide renal protection Assessment & Plan (06/01/2021 9:00 AM EST): Systolic mildly elevated today with 152/80 with CCB therapy only. Continue to monitor. Encourage heart healthy diet. Assessment & Plan (05/06/2021 12:22 PM EST): Systolic blood pressure is mildly elevated today Follows low sodium diet Should ideally be on ACEi or ARB given underlying diabetes if there are no contraindications to this, currently managed on CCB and diuretic Assessment & Plan (04/21/2021 11:28 AM EST): Systolic blood pressure is mildly elevated in the setting of recent steroid injection Follows low sodium diet Should ideally be on ACEi or ARB given underlying diabetes if there are no contraindications to this, currently managed on CCB and diuretic Assessment & Plan (09/27/2020 10:32 AM EDT): Blood pressure is at higher end of desirable range Follows low sodium diet Should ideally be on ACEi or ARB given underlying diabetes if there are no contraindications to this, currently managed on CCB and diuretic Assessment & Plan (01/29/2020 12:48 PM EDT): Blood pressure is at higher end of desirable range Follows low sodium diet Should ideally be on ACEi or ARB given underlying diabetes if there are no contraindications to this, currently managed on CCB and diuretic Assessment & Plan (09/20/2019 9:26 PM EDT): Follows low sodium diet Should ideally be on ACEi or ARB given underlying diabetes if there are no contraindications to this, currently managed on CCB and diuretic Assessment & Plan (07/11/2017 3:13 PM EDT): Under reasonably good control. She will stay on a low-sodium diet. Resolved Problems Problem Noted Date Diagnosed Date Resolved Date Dysuria 05/16/2021 12/12/2021 Vaginal odor 12/22/2020 12/12/2021 Assessment & Plan (12/22/2020 9:12 AM EDT): Lack of d/c, unable top perform wet prep Can try metrogel if this persists, rx sent Hyperglycemia 09/30/2018 03/07/2022 Assessment & Plan (09/30/2018 8:29 AM EDT): Elevated blood sugar may be secondary to early type 2 diabetes or secondary to glucocorticoid injections from spinal specialist. Discussed this with her today. No overt signs or symptoms of diabetes. Does have strong family history of diabetes. Will discuss with primary care physician. Before next corticosteroid injection in October she will come back this week for morning fasting blood sugar and hemoglobin A1c. Nipple lesion 03/21/2018 12/22/2020 Assessment & Plan (04/07/2018 8:42 PM EST): Likely small prominent papilloma on nipple skin or more prominent gland. Pt reassured. Narcotic dependence 09/20/19 Assessment & Plan (09/19/2021 8:10 AM EDT): Take exactly as prescribed, try to limit frequency by employing non-for pharmacologic measures such as topical creams, warm packs, patches, regular relaxation/mediation/positive imagery sessions etc. Build up regular exercise routine up to the goal of 30-45 minutes daily. Monitor for increasing shortness of breath, reduced respiratory drive, increasing constipation Follow-up closely with prescribing physician exactly as scheduled. Assessment & Plan (05/17/2021 9:58 AM EST): Take exactly as prescribed, try to limit frequency by employing non-for pharmacologic measures such as topical creams, warm packs, patches, regular relaxation/mediation/positive imagery sessions etc. Build up regular exercise routine up to the goal of 30-45 minutes daily. Monitor for increasing shortness of breath, reduced respiratory drive, increasing constipation Follow-up closely with prescribing physician exactly as scheduled. Assessment & Plan (10/26/2020 11:33 AM EDT): Cont with Dr Hamilton at [facility] Chronic Pain Encounters Date Type Department Care Team Description 12/08/2024 9:00 AM EDT Nurse Only [address] [place] [address] Sivan Montgomery MD, MPH 12/04/2024 11:27 AM EDT - 12/04/2024 11:59 PM EDT Hospital Encounter [facility] [address] [place] [address] Pooja Elam MD Discharge Disposition: Home or Self Care 12/04/2024 11:00 AM EDT Office Visit [address] [place] [address] Pooja Elam MD Abnormal electrocardiogram (ECG) (EKG) (Primary Dx); Syncope and collapse; Intractable abdominal pain 11/24/[address] [place] [address] Sivan Montgomery MD, MPH TCM Visit 11/21/2024 Orders Only [facility] [address] [place] [address] Unknown, Michelle, 11/19/2024 3:00 PM EDT Office Visit [address] [place] [address] Pooja Elam MD Type 2 diabetes mellitus without complication, with long-term current use of insulin (Primary Dx); Primary hypertension; Gastroesophageal reflux disease without esophagitis; Tachycardia; Sacroiliitis; Spinal enthesopathy of lumbosacral region; Spondylolysis of lumbar region; Disorder of sacrum 11/17/2024 9:00 AM EDT Office Visit [facility] [address] [place] [address] Santa Lewis MD Type 2 diabetes mellitus, without long-term current use of insulin (Primary Dx); Primary hypertension; Acquired hypothyroidism; Hyperlipidemia, unspecified hyperlipidemia type 11/17/2024 Telephone [facility] [address] [place] [address] Santa Lewis MD 11/07/2024 9:00 AM EDT Nurse Only [facility] [address] [place] [address] Sivan Montgomery MD, MPH B12 deficiency (Primary Dx) 10/28/2024 Refill [facility] [address] [place] [address] Jessica Ordonez Medication Refill; New Med Request (Nissa states she's been on ozempic before, got off due to cost. Now has a way to afford it and would like to start taking it again. ) 10/09/2024 9:00 AM EDT Nurse Only [facility] [address] [place] [address] Sivan Montgomery MD, MPH B12 deficiency (Primary Dx) 10/09/2024 Refill [facility] [address] [place] [address] Sivan Montgomery MD, MPH Referral (Needs new podiatry referral); Medication Refill (Wants 90 day supply) 09/30/2024 Refill [facility] [address] [place] [address] Sivan Montgomery MD, MPH Medication Refill 09/29/2024 9:00 AM EDT Office Visit [facility] [address] [place] [address] Alma Delia Castro MD Familial Mediterranean fever (Primary Dx); Spinal enthesopathy of lumbosacral region; Pseudogout of right knee; Osteopenia of both hips; Gastroesophageal reflux disease with esophagitis without hemorrhage; On colchicine therapy; Type 2 diabetes mellitus without complication, without long-term current use of insulin 09/24/2024 Telephone [facility] [address] [place] [address] Xochilt Morales RN 09/18/2024 Refill [facility] [address] [place] [address] Sivan Montgomery MD, MPH Medication Refill 09/10/2024 9:00 AM EDT Nurse Only [facility] [address] [place] [address] Sivan Montgomery MD, MPH B12 deficiency (Primary Dx) from Last 3 Months Immunizations Immunization Administration Dates Next Due COVID-19 (Pre-02/05) Pfizer Vaccine, mRNA, PF 07/26/2021,07/06/2020,06/10/2020 Hepatitis B Adult 07/14/2024,05/21/2024 Influenza High-Dose Quadriva lent Preservative Free IM 01/16/2023,01/31/2022,01/08/2021 Influenza High-Dose Trivalen t Preservative Free IM 01/05/2024,03/11/2019,01/11/2018 Influenza Quadrivalent Preservative Free IM 12/15 Influenza Quadrivalent w/ Preservative IM 2016,02/04/2016 Pneumococcal conjugate PCV13 01/01/2015 Pneumococcal conjugate PCV20 02/20/2022 Pneumococcal polysaccharide PPSV23 09/23/2018 RSV Vaccine (monovalent, adjuvanted) 01/16/2023 Tdap 12/23/2020 Zoster recombinant 05/23/2022,03/05/2022 Family History Medical History Relation Comments Restless legs syndrome Brother CV disease Father Heart attack Father Dementia Maternal Grandmother Dementia Mother Hypertension Mother Restless legs syndrome Mother Stroke Mother Thyroid disease Mother Other Niece familial mediter anean fever Alzheimer's disease Paternal Aunt 1 Heart disease Paternal Aunt 1 Alzheimer's disease Paternal Aunt 2 Colon cancer Paternal Grandfather Heart attack Paternal Grandfather Stroke Paternal Grandfather Heart disease Sister 1 pacemaker Lung cancer Sister 1 smoker Restless legs syndrome Sister 1 Stroke Sister 1 x2 Vitamin D deficiency Sister 1 Heart disease Sister 2 Other Sister 2 Restless legs syndrome Sister 2 Heart disease Sister 3 valvular disease , maybe born with it? Other Sister 3 Relation Status Comments Brother Alive Father (Age 41) Maternal Grandmother Mother (Age 91) Niece Paternal Aunt 1 Paternal Aunt 2 Paternal Grandfather Sister 1 Alive Sister 2 Alive Sister 3 Alive Social History Tobacco Use Types Packs/Day Years Used Date Smoking Tobacco: Never Passive Smoke Exposure: Past Smokeless Tobacco: Never Tobacco Cessation:Counseling Given: Not [...] is your housing situation today? I have cristiancarlos still 11/21/2023 How many times have you move [...] F) 12/04/2024 11:00 AM EDT Respiratory Rate 18 10/16/2022 9:04 AM EDT Oxygen Saturation 98% 12/04/2024 11:00 AM EDT Inhaled Oxygen Concentration - - Weight 70.3 kg (155 lb) 12/04/2024 11:00 AM EDT Height 157.5 cm (5' 2 ) 12/04/2024 11:00 AM EDT Body Mass Index 28.35 12/04/2024 11:00 AM EDT Plan of Treatment Upcoming Encounters Date Type Department Care Team (Late st Contact Info) Description 12/04/2024 Procedure Pass [facility] [address] [place] [address] 01/01/2025 9:30 AM EDT Appointment [facility] [address] [place] [address] Pooja Elam MD [address] [place], [place] [address], [place] [address] 01/08/2025 9:00 AM EDT Nurse Only [facility] [address] [place] [address] Sivan Montgomery MD, MPH [address] [facility] [place] [address] 04/01/2025 8:00 AM EST Office Visit [facility] [address] [place] [address] Alma Delia Castro MD [address], [address] [place] [address] [email or web address] 05/15/2025 1:20 PM EST Office Visit [facility] [address] [place] [address] [address], [address] [place] [address] Juan Burns MD [address], [address] [place] [address] 05/26/2025 8:00 AM EST [facility] [facility] [address] [facility] [address] [place] [address] Pooja Elam MD 15 [facility] [address] [place] [address] 06/08/2025 9:00 AM EST Office Visit [facility] [address] [place] [address] Santa Lewis MD [address], 1st [place] [address] 06/15/2025 9:00 AM EST Office Visit [facility] [address] [facility] [address], [address] [place] [address] Anup Ward MD, MS [address], [address] [place] [address] 11/24/2025 9:00 AM EDT Office Visit [facility] [address] [place] [address] Pooja Elam MD [address] [place] [address] [email or web address] Health Maintenance Due Date Last Done Comments HEPATITIS A VACCINES (1 of 2 - Risk 2-dose series) 06/27/1971 COLOGUARD 1997 FIT TEST 1997 FOBT 1997 SIGMOIDOSCOPY 1997 VIRTUAL COLONOSCOPY 1997 DIABETIC EYE EXAM 07/07/2023 07/06/2022, 01/26/2021 INFLUENZA VACCINE (#1) 2024 , 01/16/2023, 01/31/2022, Additional history exists DEPRESSION SCREENING 11/20/2024 11/21/2023 HEMOGLOBIN A1C 05/20/2025 11/17/2024, 04/17, 01/14/2024, Additional history exists BLOOD PRESSURE 06/06/2025 12/04/2024 TSH LEVEL 07/07/2025 07/07/2024, 06/1 04/2023, 07/13/2022, Additional history exists POTASSIUM LEVEL 12/04/2025 12/04/2024, 04/0 10/2024, 07/07/2024, Additional history exists URINE MICROALBUMIN/CREATININE RATIO 12/04/2025 12/04/2024, 03/21/2023, 02/28/2022, Additional history exists MAMMOGRAM 04/07/2026 04/07/2024, 03/17, 04/07/2024, Additional history exists Adult Td,Tdap Booster 12/23/2030 12/23/2020 COLONOSCOPY 09/14/2031 09/13/2021 COLORECTAL CANCER SCREENING 09/14/2031 PNEUMOCOCCAL VACCINES (50+ years) Completed 02/20/2022, 09/23/2018, 01/01/2015 ZOSTER VACCINES Completed 05/23/2022, 03/05/2022 RSV VACCINE Completed 01/16/2023 OSTEOPOROSIS SCREENING INITIAL (ONE-TIME) Completed 05/17/2023, 05/17/2023, 12/28/2020, Additional history exists HEPATITIS C SCREENING Completed 02/20/2024 , 08/22/2023, 02/21/2023, Additional history exists COVID-19 VACCINE Completed 08/19/2024, , 09/26/2022, Additional history exists SMOKING STATUS SCREENING (Once After 26 Yrs) Completed 12/04/2024 HIB VACCINES Aged Out No longer eligi ble based on patient's age to complete this topic MENINGOCOCCAL VACCINES (ACWY) Aged Out No longer eligible based on patient's age to complete this topic MENINGOCOCCAL VACCINES (B) Aged Out N o longer eligible based on patient's age to complete this topic Medical Devices Implanted Type Area Framing Inspector Device Identifier Shelf Expiration Date Model / Serial / Lot Cement Bone 40gr [employer] - [id number] Implanted:Qty: 1 on 08/13/2017 by Uriel Jenkins DO at [facility] Left: Shoulder [employer]ORE 09/13/2018 [id number] / / [id number] 3a Ascend Flex Standard Ptc Humeral Stem Shoulder 14 - [id number] Implanted:Qty: 1 on 08/13/2017 by Uriel Jenkins DO at [facility] Left: Shoulder [employer] 01/23/2022 [id number] / [id number] / Aequalis Perform Glenoid Cortiloc M40 Shoulder 02 Nc - [id number] Implanted:Qty: 1 on 08/13/2017 by Uriel Jenkins DO at [facility] Left: Shoulder [employer] 01/22/2022 [id number] / / [id number] Low Offset Ascend Flex Stb Humeral Head Onc 22 - [id number] Implanted:Qty: 1 on 08/13/2017 by Uriel Jenkins DO at [facility] Left: Shoulder [employer] 05/11/2021 [id number] / / [id number] Procedures Procedure Name Priority Date/Time Associated Diagnosis Comments MICROALBUMIN/CREATINI NE RATIO, RANDOM URINE Routine 12/04/2024 11:40 AM EDT Type 2 diabetes mellitus without complication, with long-term current use of insulin BILIRUBIN, DIRECT Routine 12/04/2024 11: 32 AM EDT INDIRECT BILIRUBIN Routine 12/04/2024 11 :32 AM EDT AG RATIO Routine 12/04/2024 11:32 AM EDT COMPREHENSIVE METABOLIC PANEL Routine 12/04/2024 [...] Pseudogout of right knee On colchicine therapy OUTSIDE US IMAGING REPORT ONLY Routine 11/21/2024 3:[address] ABD/PELVIS REPORT ONLY Routine 11/20/2024 8:07 AM EDT ECG 12-LEAD Routine 11/19/2024 3:24 PM EDT Tachycardia POCT HEMOGLOBIN A1C Routine 11/17/2024 9 :29 AM EDT Type 2 diabetes mellitus, without long-term current use of insulin TSH WITH REFLEX Routine 07/07/2024 8:48 AM EDT Acquired hypothyroidism MAMMOGRAPHY Routine 04/07/2024 8:11 AM EST LIVER FIBROSIS TEST Routine 02/20/2024 7 :54 AM EST Familial Mediterranean fever DEXA SCAN Routine 05/17/2023 11:26 AM EST DIABETES EYE EXAM FOR RESULT ENTRY ONLY Routine 07/06/2022 ENDOSCOPY, COLON 09/13/2021 10:1 0 AM EDT from Last 3 Months or Most Recently Relevant to Health Maintenance Results * Microalbumin/creatinine ratio, random urine (12/04/2024 11:40 AM EDT) URINE MICROALBUMIN <1.2 0 - 2.3 mg/dL [facility] URINE CREATININE 114 mg/dL [facility] MICROALB/CRE RATIO NOT CALCULATED 0 - 20 mg/g Cre [facility] Comment:due to Microalbumin <1.2 Urine (Urine) 12/04/2024 11: 40 AM EDT 12/04/2024 11:41 AM EDT us Pooja Elam MD URINE ORDERABLES Final Re sult Performing Organization Address [facility]/ZIP Co de Phone Number [address] [address] * Ag Ratio (12/04/2024 11:32 AM EDT) A/G Ratio 1.36 1.00 - 4.80 RATIO [facility] 12/04/2024 11:3 2 AM EDT 12/04/2024 3:35 PM EDT us Pooja Elam MD LAB BLOOD ORDERABLES Charmaine l Result Performing Organization Address City/[facility]/ZIP Co de Phone Number [address] [address] * Indirect Bilirubin (12/04/2024 11:32 AM EDT) Bilirubin (Indirect) NOT CALCULATED 0 - 1.5 mg/dL [facility] 12/04/2024 11:3 2 AM EDT 12/04/2024 3:35 PM EDT us Pooja Elam MD LAB BLOOD ORDERABLES Charmaine l Result [facility] [address] [place] [address] * (ABNORMAL) Comprehensive metabolic panel (12/04/2024 11:32 AM EDT) SODIUM 133 133 - 146 mmol/L [facility] POTASSIUM 3.6 3.3 - 5.1 mmol/L [facility] CHLORIDE 95(L) 96 - 108 mmol/L [facility] CO2 26 21 - 35 mmol/L [facility] BUN 16 6 - 19 mg/dL [facility] CREATININE 1.10 0.5 - 1.5 mg/dL [facility] GLUCOSE 124(H) 70 - 99 mg/dL [facility] ALBUMIN 4.5 3.9 - 4.8 g/dL [facility] TOTAL PROTEIN 7.8 6.5 - 8.0 g/dL [facility] CALCIUM 9.5 8.4 - 10.3 mg/dL [facility] ALKALINE PHOSPHATASE 94 39 - 117 U/L [facility] TOTAL BILIRUBIN 0.3 0.0 - 1.2 mg/dL [facility] AST 27 0 - 37 U/L [facility] ALT 21 0 - 40 U/L [facility] GLOBULIN 3.3 1 - 4.8 g/dL [facility] EGFR 53(L) >59 mL/min/1.7 3m2 [facility] Comment:Estimated glomerular filtration rate calculated using the CKD-EPI refit equation. ANION GAP 16 10 - 20 mmol/L [facility] Blood 12/04/2024 11:3 2 AM EDT 12/04/2024 3:35 PM EDT Alma Delia Castro MD LAB BLOOD ORDERABLES Fin al Result [address] [address] * Sedimentation rate (ESR) (12/04/2024 11:32 AM EDT) ESR 6 0 - 30 mm/h [facility] Blood 12/04/2024 11:3 2 AM EDT 12/04/2024 3:35 PM EDT Alma Delia Castro MD LAB BLOOD ORDERABLES Fin al Result Performing Organization Address [facility] Co de Phone Number [address] [address] * (ABNORMAL) CBC and differential (12/04/2024 11:32 AM EDT) WBC 11.54(H) 4.00 - 11.00 K/uL [facility] RBC 4.28 4.00 - 5.20 M/uL [facility] HGB 13.6 12.0 - 16.0 g/dL [facility] HCT 41.3 36.0 - 46.0 % [facility] PLT 336 150 - 450 K/uL [facility] MCV 96.5 80.0 - 100.0 fL [facility] MCH 31.8(H) 27.0 - 31.0 pg [facility] MCHC 32.9 32.0 - 36.0 g/dL [facility] RDW 13.3 11.5 - 14.5 % [facility] MPV 12.1(H) 8.4 - 12.0 fL [facility] NRBC 0.00 0.00 /100 WBCs [facility] ABSOLUTE NRBC 0.00 0.00 K/uL [facility] DIFF METHOD Auto [facility] NEUTS 71.3 48.0 - 76.0 % [facility] LYMPHS 20.9 18.0 - 41.0 % [facility] MONOS 5.1 4.0 - 11.0 % [facility] EOS 1.6 0.0 - 5.0 % [facility] BASOS 0.5 0.0 - 1.5 % [facility] Granulocytes, immature (%) 0.6 0.0 - 0.9 % [facility] ABSOLUTE NEUTS 8.22(H) 1.92 - 7.60 K/uL [facility] ABSOLUTE LYMPHS 2.41 0.72 - 4.10 K/uL [facility] ABSOLUTE MONOS 0.59 0.16 - 1.10 K/uL [facility] ABSOLUTE EOS 0.19 0.00 - 0.50 K/uL [facility] ABSOLUTE BASOS 0.06 0.00 - 0.15 K/uL [facility] Granulocytes, immature 0.07 0.00 - 0.09 K/uL [facility] Blood 12/04/2024 11:3 2 AM EDT 12/04/2024 3:35 PM EDT Alma Delia Castro MD LAB BLOOD ORDERABLES Fin al Result [address] [address] * (ABNORMAL) C-Reactive Protein (12/04/2024 11:32 AM EDT) C REACTIVE PROTEIN 12.3(H) 0.0 - 4.0 mg/L [facility] Blood 12/04/2024 11:3 2 AM EDT 12/04/2024 3:35 PM EDT Alma Delia Castro MD LAB BLOOD ORDERABLES Fin al Result [address] [address] * CPK (creatine kinase) (12/04/2024 11:32 AM EDT) CREATINE KINASE 62 21 - 215 U/L [facility] Blood 12/04/2024 11:3 2 AM EDT 12/04/2024 3:35 PM EDT us Alma Delia Castro MD LAB BLOOD ORDERABLES Fin al Result Performing Organization Address [facility] Co de Phone Number [address] [address] * Bilirubin, direct (12/04/2024 11:32 AM EDT) DIRECT BILIRUBIN <0.1 0.0 - 0.2 mg/dL [facility] 12/04/2024 11:3 2 AM EDT 12/04/2024 3:35 PM EDT us Pooja Elam MD LAB BLOOD ORDERABLES Charmaine l Result Performing Organization Address [facility] de Phone Number [address] [address] * Outside US Imaging??Report Only (11/21/2024 3:20 PM EDT) us Unknown Unknown MD IMG US OP Final Result * Outside CT Abd/pelvis Report Only (11/20/2024 8:07 AM EDT) us Unknown Unknown MD IMG CT ABD/PELVIS Final Resul t * (ABNORMAL) ECG 12-LEAD (11/19/2024 3:24 PM EDT) Narrative EXTERNAL NON-INTERFACED REF LAB - 11/19/2024 3:24 PM EDT Sinus tachycardia with rate of 105 bpm, some relative ST depression (< 1 mm) in leads I and II, difficult to interpret due to tachycardia. us Pooja Elam MD ECG ORDERABLES Final Res ult Performing Organization Address [facility] de Phone Number EXTERNAL NON-INTERFACED REF LAB * (ABNORMAL) POCT Hemoglobin A1c (11/17/2024 9:29 AM EDT) Hemoglobin A1c 6.6(A) 4.2 - 5.6 % [facility] Other 11/17/2024 9:29 AM EDT us Santa Lewis MD POINT OF CARE TEST ORDERABLES F inal Result Performing Organization Address City/[facility]/ZIP Co de Phone Number [address] [address], [facility] * TSH with reflex (07/07/2024 8:48 AM EDT) TSH 2.01 0.27 - 4.20 uIU/mL [facility] Blood 07/07/2024 8:48 AM EDT 07/07/2024 8:53 AM EDT Sivan Montgomery MD, MPH LAB BLOOD ORDERABLES Final Result Performing Organization Address [facility] Co de Phone Number [address] [address] * MAMMOGRAPHY FOR RESULT ENTRY ONLY (04/07/2024 8:11 AM EST) Historical Provider HEALTH MAINTENANCE Edited Result - Final * Liver fibrosis test (02/20/2024 7:54 AM EST) Fibrosis score 0.18 [facility] Interpretation (Fibrosis) SEE NOTE [facility] Comment: (NOTE) no fibrosis Fibro Test Score (f) Metavir Score f>=0 and f<=0.21 : F0 (no fibrosis) f>0.21 and f<=0.27 : F0-F1 (no fibrosis) f>0.27 and f<=0.31 : F1 (minimal fibrosis) f>0.31 and f<=0.48 : F1-F2 (minimal fibrosis) f>0.48 and f<=0.58 : F2 (moderate fibrosis) f>0.58 and f<=0.72 : F3 (advanced fibrosis) f>0.72 and f<=0.74 : F3-F4 (advanced fibrosis) f>0.74 and f<=1.00 : F4 (severe fibrosis) HCV Fibrosis Grade F0 Q [facility] NECROINFLAMM SCORE 0.06 Q [facility] NECROINFLAMM GRADE A0 Q [facility] NECROINFLAMM INTERP SEE NOTE [facility] Comment: (NOTE) no activity ActiTest Score (a) Metavir Score a>=0 and a<=0.17 : A0 (no activity) a>0.17 and a<=0.29 : A0-A1 (no activity) a>0.29 and a<=0.36 : A1 (minimal activity) a>0.36 and a<=0.52 : A1-A2 (minimal activity) a>0.52 and a<=0.60 : A2 (significant activity) a>0.60 and a<=0.62 : A2-A3 (significant activity) a>0.62 and a<=1.00 : A3 (severe activity) A2 Macroglobulin 187 106 - 279 mg/dL [facility] Haptoglobin 179 43 - 212 mg/dL [facility] Apolipoprotein A1 157 101 - 198 mg/dL [facility] TOTAL BILIRUBIN 0.5 0.2 - 1.2 mg/dL [facility] GGT 21 3 - 65 U/L [facility] ALT 18 6 - 29 U/L [facility] Specimen/Product ID [id number] [facility] Comments (Chemistry) SEE NOTE [facility] Comment: (NOTE) The reliability of results is dependent on compliance with the preanalytical and analytical conditions recommended by [employer]. The tests have to be deferred for: acute hemolysis, acute hepatitis, acute inflammation, extra hepatic cholestasis. The advice of a specialist should be sought for interpretation in chronic hemolysis and Gilbert's syndrome. The test interpretation is not validated in liver transplant patients. Isolated extreme values of one of the components should lead to caution in interpreting the results. In case of discordance between a biopsy result and a test, it is recommended to seek the advice of a specialist. The causes of these discordances could be due to a flaw of the test or to a flaw in the biopsy: i.e. a liver biopsy has a 33% variability rate for one fibrosis stage. FibroTest is interpretable for chronic hepatitis B and C, alcoholic and non alcoholic steatosis. ActiTest is interpretable for chronic hepatitis B and C. The performance characteristics have been determined by [employer] [facility]. It has not been cleared or approved by the U.S. Food and Drug Administration. Performance characteristics refer to the analytical performance of the test. Solid[employer], the associated logo, [employer] and all associated [employer] galvez are the registered trademarks of [employer]. All third democrat galvez - (R) and (TM) - are the property of their respective owners. (C) [id number] [employer]. All rights reserved. Blood 02/20/2024 7:54 AM EST 02/20/2024 8:01 AM EST Mare JOSHI LAB BLOOD ORDERABLES Final Result [facility] [facility] [address] [place] [address], [facility] [phone] * DEXA SCAN (05/17/2023 11:26 AM EST) Historical Provider HEALTH MAINTENANCE Final Result * DIABETES EYE EXAM FOR RESULT ENTRY ONLY (07/06/2022) EYE EXAM SEE SCANNED REPORT Historical Provider HEALTH MAINTENANCE Final Result * ENDOSCOPY, COLON (09/13/2021 10:10 AM EDT) Narrative Transcriptions Bridger Orozco MD - 09/13/2021 10:10 AM EDT Patient Name: Meron Galindodebbie Attending MD:: BRIDGER OROZCO MD, Procedure Date: 09/13/2021 10:10 AM Date of : 1950 Age: 71 Admit Type: Outpatient Gender: Female Room: [place] [address] Referring MD: Sivan Montgomery Exam Type: Colonoscopy Indications: High risk colon cancer surveillance: Personalhistory of colonic polyps Medications: Monitored Anesthesia Care Procedure: Informed consent was obtained from the patientafter discussion of the indications, limitations, alternatives, benefits, and risks of the procedure. Risks specifically discussed include but are not limited to medication reactions, missed lesions, bleeding, perforation, or the need for emergent surgery. Throughout the procedure, the patient's blood pressure, pulse, end-tidal CO2, and oxygensaturations were monitored continuously. The Olympus pediatric variable [id number] #4 was introduced through the anus and advanced tothe cecum, identified by appendiceal orifice andileocecal valve. The colonoscopy was performed without difficulty. The patient tolerated the procedurewell. The quality of the bowel preparation was excellent. The quality of the bowel preparation was evaluated using the BBPS ([place] Bowel Preparation Scale)with scores of: Right Colon = 3, Transverse Colon = 3and Left Colon = 3 (entire mucosa seen well with no residual staining, small fragments of stool oropaque liquid). The total BBPS score equals 9. Anatomical landmarks were photographed. Complications: No immediate complications. Estimated blood loss: Minimal. Findings: The perianal and digital rectal examinations were normal. A 3 mm polyp was found in the cecum. The polyp was sessile. The polyp was removed with a cold snare. Resection and retrieval were complete. A 4 mm polyp was found in the ascending colon. The polyp was sessile. The polyp was removed with acold snare. Resection and retrieval were complete. Internal hemorrhoids were found duringretroflexion. The hemorrhoids were mild. The exam was otherwise normal throughout theexamined colon. Impression: - One 3 mm polyp in the cecum, removed with a cold snare. Resected and retrieved. - One 4 mm polyp in the ascending colon, removedwith a cold snare. Resected and retrieved. - Internal hemorrhoids. Recommendation: - Discharge patient to home. - Await pathology results. - Repeat colonoscopy in 5 years for surveillance. BRIDGER OROZCO MD, 09/13/2021 10:29:53 AM This report has been signed electronically. Number of Addenda: 0 Note Initiated On: 09/13/2021 10:10 AM Procedure Code(s): --- Professional --- 94642, Colonoscopy, flexible; with removal of tumor(s), polyp(s), or other lesion(s) by snare technique --- Technical --- 27247, Colonoscopy, flexible; with removal of tumor(s), polyp(s), or other lesion(s) by snare technique Diagnosis Code(s): --- Professional --- Z86.010, Personal history of colonic polyps K63.5, Polyp of colon K64.8, Other hemorrhoids --- Technical --- Z86.010, Personal history of colonic polyps K63.5, Polyp of colon K64.8, Other hemorrhoids CPT copyright 2020 [employer]. All rights reserved. The codes documented in this report are preliminary and upon sr vice president reviewmay be revised to meet current compliance requirements. 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 [place] [address] PCP - General Family Medicine 08/20/20 Kathleen Lopez MD [address], [address] [place] [address] Historical LMR Provider 01/30/17 Santa Lewis MD [address] 1[address] [place] [address] Endocrinology 10/26/20 Alma Delia Castro MD [address], [address] [place] [address] Rheumatology 02/20/22 Archie Ramos MD [address] [place] [address] [address] [place] [address] Orthopedic Surgery 9/9/24 Sung Jane MD [address] [place] [address] Neurology 12/24/23 José Hernández MD [address] [place] [address] [place] [id number] Neurosurgery 12/24/23 Ruy Darling MD [address] [place] [id number] [email or web address] Intensive Care 12/24/23 Additional Source Comments The information contained in this document represents components of the legal health record. It is not the complete legal health record.[facility]
--- OUTSIDE RECORDS SUMMARY | 2024-12-09 07:39 | XMS_ITS | Encounter Summary ---
Author Organization [facility] Address [address] [place] [address] Phone Care Team Providers Care Label Remover Name Role Phone Weston Hamilton DO Primary Care Provider [phone] Ruy Darling MD Unavailable [phone] Adin Becerra MD Unavailable [email or web address] Kathleen Lopez MD Unavailable Weston Hamilton DO Unavailable [phone] Dionne Latif MD Unavailable [phone] Shelby Keenan DO Primary Care Provider [phone] Sivan Montgomery MD, MPH Primary Care Provid er Santa Lewis MD Unavailable [phone] Alma Delia Castro MD Unavailable [phone] Archie Ramos MD Unavailable Sung Jane MD Unavailable José Hernández MD Unavailable Ruy Darling MD Unavailable [phone] Encounter Details Date Type Department Care Team (Late st Contact Info) Description 08/13/2017 Procedure Pass OR Admitting Dept - Virtual Department [address] [place] [address] Social History Tobacco Use Types Packs/Day Years [...] 12/04/2024 Procedure Pass [facility] [address] [place] [address] 01/01/2025 9:30 AM EDT Appointment [facility] [address] [place] [address] Pooja Elam MD [address] [address] 01/08/2025 9:00 AM EDT Nurse Only [facility] 15 [facility] 201 [place] [address] Sivan Montgomery MD, MPH 15 [facility] 201 [place] [address] 04/01/2025 8:00 AM EST Office Visit [facility] Rheumatology [address] [place] [address] Alma Delia Castro MD 22 [facility], [facility] 203 [place] [address] [email or web address] 05/15/2025 1:20 PM EST Office Visit [facility] [address] 3rd Floor, [address] [place] [address] Juan Burns MD 22 [facility], [address] [place] [address] 05/26/2025 8:00 AM EST Office Visit [facility] Primary Care 15 [facility] [address] [place] [address] Pooja Elam MD 15 [facility]. [address] [place] [address] 06/08/2025 9:00 AM EST Office Visit [facility] 22 [place] [address] Santa Lewis MD 22 [facility], 1st [place] [address] 06/15/2025 9:00 AM EST Office Visit [facility] 22 [facility] 3rd Floor, [address] [place] [address] Anup Ward MD, MS 22 [facility], [address] [address] 11/24/2025 9:00 AM EDT Office Visit [facility] Primary Care 15 [facility] [address] [place] [address] Pooja Elam MD [address] [address] documented as of this encounter Visit Diagnoses Not on filedocumented in this encounter Care Teams Label Remover Relationship Specialty Start Date End Date Weston Hamilton DO PCP - General 10/14/13 07/10/18 Shelby Keenan DO [address] [place] [address] [email or web address] PCP - General Family Medicine 07/11/18 08/19/20 Sivan Montgomery MD, MPH [address] [place] [address] [email or web address] PCP - General Family Medicine 08/20/20 Ruy Darling MD [address] [place] [address] [email or web address] Historical LMR Provider 01/30/17 12/23/23 Adin Becerra MD [email or web address] Historical LMR Provider 01/30/17 02/19/22 Kathleen Lopez MD [address] [place] [address] [email or web address] Historical LMR Provider 01/30/17 Weston Hamilton DO [address] [place] [address] Historical LMR Provider 01/30/1702/19 [place] [address] [email or web address] Historical LMR Provider 01/30/17 10/24/20 Santa Lewis MD [address] [place] [address], [address] [place] [address] Endocrinology 10/26/20 Alma Delia Castro MD 22 [facility], [address] [place] [address] Rheumatology 02/20/22 Archie Ramos MD [address] [place] [address] [address] [place] [address] Orthopedic Surgery 12/24/23 Sung Jane MD [address] [place] [address] Neurology 12/24/23 José Hernández MD [address] [place] [address] [address] [place] [address] Neurosurgery 12/24/23 Ruy Darling MD [address] [place] [address] Intensive Care 12/24/23 documented as of this encounter Additional Source Comments The information contained in this document represents components of the legal health record. It is not the complete legal health record.[facility]
--- OUTSIDE RECORDS SUMMARY | 2024-12-09 07:39 | XMS_ITS | Encounter Summary ---
Author Organization [facility] Address [address] [facility] [address] [place] [address] Phone Care Team Providers Care Shock Absorption Floor Layer Name Role Phone Weston Hamilton DO Primary Care Provider Ruy Darling MD Unavailable [phone] Adin Becerra MD Unavailable [email or web address] Kathleen Lopez MD Unavailable Weston Hamilton DO Unavailable [phone] Dionne Latif MD Unavailable [phone] Shelby Keenan DO Primary Care Provider [phone] Sivan Montgomery MD, MPH Primary Care Provid er Santa Lewis MD Unavailable [phone] Alma Delia Castro MD Unavailable [phone] Archie Ramos MD Unavailable Sung Jane MD Unavailable José Hernández MD Unavailable Ruy Darling MD Unavailable Encounter Details Date Type Department Care Team (Late st Contact Info) Description 08/23/2017 Ancillary Orders [facility] Orthopedics & Sports Medicine [address] [place] [address] Uriel Jenkins DO [address] [place] [address] Orthopedics & Sports Medicine, [place] [address] [email or web address] Social History Tobacco Use [...] 12/04/2024 Procedure Pass [facility] 30 [place] [address] 01/01/2025 9:30 AM EDT Appointment [facility] 30 [place] [address] Pooja Elam MD [address] [place] [address] [email or web address] 01/08/2025 9:00 AM EDT Nurse Only [facility] [address] [address] Sivan Montgomery MD, MPH [address] [address] [email or web address] 04/01/2025 8:00 AM EST Office Visit [facility] Rheumatology [address] [place] [address] Alma Delia Castro MD [address] [place] [address] 203 [place] [address] [email or web address] 05/15/2025 1:20 PM EST Office Visit [facility] 22 [facility] 3rd Floor, [address] [place] [address] Juan Burns MD 22 [facility], [address] [place] [address] 05/26/2025 8:00 AM EST Office Visit [facility] Primary Care 15 [facility] 201 [place] [address] Pooja Elam MD [address] [address] 06/08/2025 9:00 AM EST Office Visit [facility] 22 [place] [address] Santa Lewis MD 22 [facility], 1st [place] [address] 06/15/2025 9:00 AM EST Office Visit [facility] 22 [facility] 3rd Floor, [address] [place] [address] Anup Ward MD, MS 22 [facility], [address] [address] 11/24/2025 9:00 AM EDT Office Visit [facility] Primary Care [address] [address] Pooja Elam MD [address] [address] [email or web address] documented as of this encounter Visit Diagnoses Not on filedocumented in this encounter Care Teams Shock Absorption Floor Layer Relationship Specialty Start Date End Date Weston Hamilton DO PCP - General 10/14/13 07/10/18 Shelby Keenan DO [address] [place] [address] [email or web address] PCP - General Family Medicine 07/11/18 08/19/20 Sivan Montgomery MD, MPH [address] [place] [address] [email or web address] PCP - General Family Medicine 08/20/20 Ruy Darling MD [address] [place] [address] [email or web address] Historical LMR Provider 01/30/17 12/23/23 Adin Becerra MD [email or web address] Historical LMR Provider 01/30/17 02/19/22 Kathleen Lopez MD [address] [place] [address] [email or web address] Historical LMR Provider 01/30/17 Weston Hamilton DO [address] [place] [address] Historical LMR Provider 01/30/1702/19 [place] [address] [email or web address] Historical LMR Provider 01/30/17 10/24/20 Santa Lewis MD 22 [facility], 1st [place] [address] Endocrinology 10/26/20 Alma Delia Castro MD 22 [facility], [address] [place] [address] Rheumatology 02/20/22 Archie Ramos MD [address] [place] [address] Orthopedic Surgery 12/24/23 Sung Jane MD [address] [place] [address] Neurology 12/24/23 José Hernández MD [address] [place] [address] [place] [address] Neurosurgery 12/24/23 Ruy Darling MD [address] [place] [address] Intensive Care 12/24/23 documented as of this encounter Additional Source Comments The information contained in this document represents components of the legal health record. It is not the complete legal health record.[facility]
--- OUTSIDE RECORDS SUMMARY | 2024-12-09 07:39 | XMS_ITS | Encounter Summary ---
Author Organization [facility] Address [address] [facility] [address] [place] [address] Phone Care Team Providers Care Cycle Repairer Name Role Phone Weston Hamilton DO Primary Care Provider Ruy Darling MD Unavailable [phone] Adin Becerra MD Unavailable [email or web address] Kathleen Lopez MD Unavailable Weston Hamilton DO Unavailable [phone] Dionne Latif MD Unavailable [phone] Shelby Keenan DO Primary Care Provider [phone] Sivan Montgomery MD, MPH Primary Care Provid er Santa Lewis MD Unavailable [phone] Alma Delia Castro MD Unavailable Archie Ramos MD Unavailable Sung Jane MD Unavailable José Hernández MD Unavailable Ruy Darling MD Unavailable [phone] Encounter Details Date Type Department Care Team (Late st Contact Info) Description 12/19/2017 Transcribe Orders [facility] [address] [place] [address] Weston Hamilton, DO [address] [address] Essential hypertension, malignant (Primary Dx); Other hyperlipidemia; Hypothyroidism, adult Social History Tobacco Use Types Packs/Day Years [...] Procedure Pass [facility] Echo Lab 30 [place] [address] 01/01/2025 9:30 AM EDT Appointment [facility] Echo Lab 30 [place] [address] Pooja Elam MD [address] [place] [address] 01/08/2025 9:00 AM EDT Nurse Only [facility] [place] Primary Care 15 [facility] 201 [place] [address] Sivan Montgomery MD, MPH [address] [address] 04/01/2025 8:00 AM EST Office Visit [facility] Rheumatology [address] [place] [address] Alma Delia Castro MD [address] [place] [address] 203 [place] [address] [email or web address] 05/15/2025 1:20 PM EST Office Visit [facility] [address] 3rd Floor, [address] [place] [address] Juan Burns MD 22 [facility], [address] [place] [address] 05/26/2025 8:00 AM EST Office Visit [facility] Primary Care 15 [facility] 201 [place] [address] Pooja Elam MD [address] [address] 06/08/2025 9:00 AM EST Office Visit [facility] 22 [place] [address] Santa Lewis MD 22 [facility], 1st [place] [address] 06/15/2025 9:00 AM EST Office Visit [facility] 22 [facility] 3rd Floor, [address] [place] [address] Anup Ward MD, MS 22 [facility], [address] [place] [address] 11/24/2025 9:00 AM EDT Office Visit [facility] Primary Care [address] [place] [address] [address] Pooja Elam MD 15 [facility] [place]. 201 [place] [address] documented as of this encounter Results * Microalbumin/creatinine ratio, random urine (12/19/2017 8:52 AM EDT) URINE MICROALBUMIN 0.2 0 - 2.3 mg/dL [facility] URINE CREATININE 71 mg/dL RN ON SITE [facility] MICROALB/CRE RATIO NOT CALCULATED 0 - 20 mg/g Cre [facility] Comment:due to Microalbumin <1.2 Urine (Urine) 12/19/2017 8:5 2 AM EDT 12/19/2017 8:55 AM EDT [facility] DO URINE ORDERABLES Final Result Performing Organization Address City/State/[facility] Co de Phone Number [facility] [address] [place] [address] * (ABNORMAL) CBC and differential (12/19/2017 8:52 AM EDT) WBC 8.13 3.40 - 11.20 K/uL [facility] RBC 4.76 3.80 - 4.80 M/uL [facility] HGB 14.6 12.0 - 15.0 g/dL [facility] HCT 43.9 36.0 - 46.0 % [facility] PLT 265 130 - 400 K/uL [facility] MCV 92.2 79.0 - 98.0 fL [facility] MCH 30.7 27.0 - 34.8 pg [facility] MCHC 33.3 31.5 - 36.0 g/dL [facility] RDW 13.0 10.8 - 14.6 % [facility] MPV 12.1 9.4 - 12.4 fl [facility] NRBC 0.00 /100 WBCs [facility] ABSOLUTE NRBC 0.00 K/uL [facility] DIFF METHOD Auto [facility] NEUTS 59.8 45.30 - 77.70 % [facility] LYMPHS 30.0 12.30 - 39.70 % [facility] MONOS 6.4 4.10 - 12.80 % [facility] EOS 2.1 0 - 7.2 % [facility] BASOS 0.7 0 - 2.80 % [facility] Granulocytes, immature (%) 1.0(H) 0.0 - 0.9 % [facility] ABSOLUTE NEUTS 4.86 1.40 - 7.70 K/uL [facility] ABSOLUTE LYMPHS 2.44 0.60 - 3.20 K/uL [facility] ABSOLUTE MONOS 0.52 0.11 - 0.59 K/uL [facility] ABSOLUTE EOS 0.17 0.01 - 0.50 K/uL [facility] ABSOLUTE BASOS 0.06 0.00 - 0.08 K/uL [facility] Granulocytes, immature 0.08(H) 0.00 - 0.05 K/uL [facility] Blood 12/19/2017 8:52 AM EDT 12/19/2017 8:54 AM EDT [facility] BLOOD ORDERABLES Final Resu lt Performing Organization Address [facility]/ZIP Co de Phone Number [address] [address] * TSH with reflex (12/19/2017 8:52 AM EDT) TSH 1.21 0.27 - 4.20 uIU/mL [facility] Blood 12/19/2017 8:52 AM EDT 12/19/2017 8:54 AM EDT [facility] BLOOD ORDERABLES Final Resu lt Performing Organization Address [facility]/ZIP Co de Phone Number [address] [address] * (ABNORMAL) Lipid panel (12/19/2017 8:52 AM EDT) HDL 42 mg/dL [facility] Comment: Interpretation: Risk Level Females Decreased >55mg/dL Average 50-55 mg/dL Increased <50 mg/dL CHOLESTEROL 174 0 - 240 mg/dL [facility] TRIGLYCERIDES 271(H) 30 - 160 mg/dL [facility] LDL 78 50 - 129 mg/dL [facility] Comment: LDL levels in terms of risk for coronary heart disease: <100 mg/dL: Optimal 100-129 mg/dL: Near or above optimal 130-159 mg/dL: Borderline high 160-189 mg/dL: High >190 mg/dL: Very High CARDIAC RISK RATIO 4.1 3.3 - 4.4 C [facility] Blood 12/19/2017 8:52 AM EDT 12/19/2017 8:54 AM EDT [facility] DO LAB BLOOD ORDERABLES Final Resu lt [facility] [address] [place] [address] * (ABNORMAL) Comprehensive metabolic panel (12/19/2017 8:52 AM EDT) SODIUM 138 133 - 146 mmol/L [facility] POTASSIUM 3.7 3.3 - 5.1 mmol/L [facility] CHLORIDE 95(L) 96 - 108 mmol/L [facility] CO2 27 21 - 35 mmol/L [facility] BUN 12 6 - 19 mg/dL [facility] CREATININE 0.80 0.5 - 1.5 mg/dL [facility] GLUCOSE 141(H) 70 - 99 mg/dL [facility] ALBUMIN 4.6 3.9 - 4.8 g/dL [facility] TOTAL PROTEIN 7.6 6.5 - 8.0 g/dL [facility] CALCIUM 10.2 8.4 - 10.3 mg/dL [facility] ALKALINE PHOSPHATASE 126(H) 39 - 117 U/L [facility] TOTAL BILIRUBIN 0.4 0.0 - 1.2 mg/dL [facility] AST 38(H) 0 - 37 U/L [facility] ALT 72(H) 0 - 40 U/L [facility] GLOBULIN 3.0 1 - 4.8 g/dL [facility] EGFR 77 >59 mL/min/1.7 3m2 [facility] Comment:If patient is black, multiply result by 1.159. Estimated glomerular filtration rate calculated using the CKD-EPI equation. ANION GAP 20 10 - 20 mmol/L [facility] Blood 12/19/2017 8:52 AM EDT 12/19/2017 8:54 AM EDT Weston Hamilton DO LAB BLOOD ORDERABLES Final Resu lt [facility] [address] [place] [address] documented in this encounter Visit Diagnoses Diagnosis Essential hypertension, malignant- Primary Other hyperlipidemia Hypothyroidism, adult Other specified acquired hypothyroidism documented in this encounter Care Teams Cycle Repairer Relationship Specialty Start Date End Date Weston Hamilton DO PCP - General 10/14/13 07/10/18 Shelby Keenan DO [address] [place] [address] [email or web address] PCP - General Family Medicine 07/11/18 08/19/20 Sivan Montgomery MD, MPH [address] [place] [address] [email or web address] PCP - General Family Medicine 08/20/20 Ruy Darling MD [address] [place] [address] [email or web address] Historical LMR Provider 01/30/17 12/23/23 Adin Becerra MD [email or web address] Historical LMR Provider 01/30/17 02/19/22 Kathleen Lopez MD [address] [address] [email or web address] Historical LMR Provider 01/30/17 Weston Hamilton DO [address] [place] [address] Historical LMR Provider 01/30/1702/19 [place] [address] [email or web address] Historical LMR Provider 01/30/17 10/24/20 Satna Lewis MD 22 [facility], 1st [place] [address] Endocrinology 10/26/20 Alma Delia Castro MD 22 [facility], [address] [place] [address] Rheumatology 02/20/22 Archie Ramos MD [address] [place] [address] [address] [place] [address] Orthopedic Surgery 12/24/23 Sung Jane MD [address] [place] [address] Neurology 12/24/23 José Hernández MD [address] [place] [address] [address] [place] [address] Neurosurgery 12/24/23 Ruy Darling MD [address] [place] [address] Intensive Care 12/24/23 documented as of this encounter Additional Source Comments The information contained in this document represents components of the legal health record. It is not the complete legal health record.[facility]
--- OUTSIDE RECORDS SUMMARY | 2024-12-09 07:39 | XMS_ITS | Patient Health Record ---
Author Organization [facility] Fly Mcmillan Address [address] [place] [address] Care Team Providers Care Bliss Press Operator Name Role Phone Sivan Montgomery Primary Care Provider Unavail able Nabila Wright Unavailable [phone] Allergies Allergen (clinical drug ingredient) Drug/Non Drug Allergy documented on EMR Reaction Allergy Type Onset Date Status Feathers Feathers (uncoded) Unknown Allergy A ctive ampicillin Ampicillin Unknown Drug Allergy Activ e Biaxin Unknown Drug Allergy Active clindamycin Clindamycin HCl Unknown Drug Allergy Active Codeine Phosphate Unknown Drug Allergy Active oxaprozin Daypro Unknown Drug Allergy Active erythromycin Erythromycin Unknown Drug Allergy A ctive Keflex Unknown Drug Allergy Active azithromycin Zithromax Z-Man Unknown Drug Allergy Active Dogs Unknown Allergy Active Dust Mites Unknown Allergy Active Mold Unknown Allergy Active Substance with penicillin structure and antibacterial mechanism of action (substance) Penicillins Unknown Drug Allergy Active Pollen (e.g. tree, grass) Unknown Allergy Active Substance with sulfonamide structure and antibacterial mechanism of action (substance) Sulfa Antibiotics Unknown Drug Allergy Active Product containing tetracycline structure (product) Tetracyclines & Related Unknown Drug Allergy Active Results Component Value Reference Range Notes HEMOGLOBIN A1C (GLYCOHEMOGLO BIN) Reviewed date:12/01/2024 09:20:19 AM Interpretation: Performing Lab: Notes/Report: HEMOGLOBIN A1C % (HH) 6.6 Reason For Referral Diagnosis 1 Pain in unspecified foot (M79.673) Referring Provider First Name Sivan Referring Provider Last Name Ulises Referred Organization [facility] Hipolito Referred Provider Nabila Wright Referred Address [address] [facility],[place], [place],[address], Referred Provider Specialty Podiatry Referral Priority Routine Medications Medication SIG (Take, Route, Frequency, Duration) Notes Start Date End Date Status SUMAtriptan Succinate 100 MG 1 tablet as needed, may take second dose at least 2 hours after first dose up to 2 tablets per day as needed Orally Once a day Active EPINEPHrine 0.3 MG/0.3ML as directed Injection Active Turmeric Active Famotidine 40 MG 1 tablet Orally Once a day Active Olopatadine HCl 0.1 % 1 drop into affect ed eye Ophthalmic Twice a day Active Cetirizine HCl 10 MG 1 tablet Orally Onc e a day Active Potassium Active Cholecalciferol 50 MCG (1999 UT) 1 tablet Orally Once a day Active Fluticasone Propionate 50 MCG/ACT 1 spray in each nostril Nasally Twice a day Active Riboflavin 400 MG 1 capsule with food Orally Once a day Active hydroCHLOROthiazide 25 MG 1 tablet in e morning Orally Once a day Active Ibuprofen 200 MG 1 tablet with food o r milk as needed Orally Three times a day Active Levothyroxine Sodium 125 MCG 1 tablet in the morning on an empty stomach Orally Once a day Active Gas-X Active Metoprolol Succinate 25 MG 1 capsule Ora lly Once a day Active Atorvastatin Calcium 20 MG 1 tablet Oral ly Once a day Active Nitroglycerin 0.3 MG 1 tablet under the tongue and allow to dissolve as needed. Take every 5 minutes up to 3 times if chest pain persists Sublingual Three times a day Active Baclofen 10 MG 1 tablet as needed Orally Twice a day Active Ozempic (0.25 or 0.5 MG/DOSE ) 2 MG/3ML as directed Subcutaneous Active Loperamide HCl 2 MG 1 capsule as needed Orally Four times a day Active Magnesium 400 MG as directed Orally Active Albuterol Sulfate 108 (90 Base) MCG/ACT 1 puff as needed Inhalation every 4 hrs Active Immunizations Vaccine Route Administration Date Status Comme nts Influenza Unknown 12/16/2023 Administered Social History Tobacco Use: Social History Observation Description Date Details (start date - stop date) Never Smoker NA - NA Tobacco use other than smoking: Question Answer Notes Are you an other tobacco user? No Tobacco Control (Standard) Question Answer Notes Tobacco use: Nonsmoker Additional Findings: Tobacco non-user Current no nsmoker AUDIT-C (Standard) Question Answer Notes Did you have a drink containing alcohol in the p ast year? 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 Vital Signs Blood pressure diastolic 80 mm Hg 12/01/2024 Height 5ft2in in 12/01/2024 Blood pressure systolic 124 mm Hg 12/01/2024 Weight 155 lbs 12/01/2024 BMI 28.35 kg/m2 12/01/2024 Procedures Procedure Date Ordered Date Performed Result Body Sit e 12276-YPKG SKIN LESIONS, OVER 4 12/01/2024 N/A Encounters Encounter Location Date Provider Diagnosis [facility] [address] 12/01/2024 Nabila Wright Pain in right foot M79.671 ; Plantar fibromatosis M72.2 ; 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 ; Type 2 diabetes mellitus with diabetic polyneuropathy E11.42 and Neuropathy G62.[address] [facility] [address] 09/10/2024 Nabila Wright Assessments Encounter Date Diagnosis (ICD Code) Assessment Notes Treatment Notes Treatment Clinical Notes Section Notes 12/01/2024 Pain in right foot (ICD-10 - M79.671) 12/01/2024 Plantar fibromatosis (ICD-10 - M72.2) 12/01/2024 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 (ICD-10 - D21.21) 12/01/2024 Type 2 diabetes mellitus with diabetic polyneuropathy (ICD-10 - E11.42) 12/01/2024 Neuropathy (ICD-10 - G62.9) EBM Medical prescription ordered and faxed Plan Of Treatment Pending Test Test Name Order Date 34542-AXAM SKIN LESIONS, OVER 4 12/02/19 25 Next Appt Details Provider Name:Nabila Wright , 03/05/2025 09:15:00 AM, [address] [place] [address], [id number], Insurance Providers Payer Name Payer Address Payer Phone Subscriber Number Group Number Insured Name Patient Relationship to Insured Coverage Start Date Coverage End Date [facility] [address] [place] [address] [phone] [id number] Meron Soria Self - patient is the insured 2 Medical (General) History Medical History History ICD Code Arthritis asthma Back,Hip,and Knee pain Diabetic Fibromyalgia Headaches/Migraines Hiatal hernia High Blood Pressure Liver disease Macular degeneration Psoriasis/eczema Reflux ( GERD) Rheumatic fever Sciatica sinusitis thyroid Chicken pox Joint implants/screws Endometriosis polycystic ovary syndrom - PCOS Cystic Breast and Tumors Vertigo IBS Degenerative Disc disease High Cholesterol Hypothyroidism TMJ Restless leg syndrome Sleep apnea hemochromatosis carrier Fatty liver familial mediterranean fever Surgical History Surgery Date(Month/Year) right hip replacement 06/25/2023 rotator cuff tear repair, left shoulder replacement 2016 left shoulder surgery 08/07/2014 neck disc 6-7 replacement 2014 shoulder surgery 2013 colonoscopy and endoscopy 2012 endoscopy 2004 colonoscopy 2x 2003 right shoulder surgery 2009 Hospitalization History Reason Date(Month/Year) ER- infection in kidneys/ colon 12/08
--- OUTSIDE RECORDS SUMMARY | 2024-12-09 07:40 | XMS_ITS | Encounter Summary ---
Author Organization [facility] Address [address] [address] Phone Care Team Providers Care Power Barker Name Role Phone Ruy Darling MD Unavailable [phone] Kathleen Lopez MD Unavailable Sivan Montgomery MD, MPH Primary Care Provid er Santa Lewis MD Unavailable [phone] Alma Delia Castro MD Unavailable Archie Ramos MD Unavailable [phone] Sung Jane MD Unavai lable José Hernández MD Unavailable [phone] Ruy Darling MD Unavailable [phone] Encounter Details Date Type Department Care Team (Latest Contact Info) Description 11/21/2022 Transcribe Orders Virtual Department [address] [place], [place] [id number] Mare Drake PA [address] [place], [place] [phone] NAFLD (nonalcoholic fatty liver disease) (Primary Dx); Gastroesophageal reflux disease with esophagitis, unspecified whether hemorrhage Social History Tobacco Use Types Packs/Day Years [...] high school, GED, job training, learning the [place]uran language, technical skills, or developing parenting skills)? [...] 07/25/2021 Digital Access Answer Date Recorded No 09/05/2022 No 09/05/2022 Reliable internet access at home? Not on file 09/05/2022 Device with a working camera? Not on file Comments No Sex and Gender Information Value [...] st Contact Info) Description 12/04/2024 Procedure Pass [facility] Echo Lab [address] [place] [address] 01/01/2025 9:30 AM EDT Appointment [facility] Echo Lab [address] [place] [address] Pooja Elam MD [address] [address] 01/08/2025 9:00 AM EDT Nurse Only [facility] [address] [address] Sivan Montgomery MD, MPH [address] [address] 04/01/2025 8:00 AM EST Office Visit [facility] Rheumatology [address] [place] [address] Alma Delia Castro MD 22 [facility], [address] [place] [address] [email or web address] 05/15/2025 1:20 PM EST Office Visit [facility] [address] [place] [address] 3rd Floor, [address] [place] [address] Juan Burns MD 22 [facility], [address] [place] [address] 05/26/2025 8:00 AM EST Office Visit [facility] Primary Care [address] [address] Pooja Elam MD [address] [address] 06/08/2025 9:00 AM EST Office Visit [facility] [address] [place] [address] Santa Lewis MD 22 [facility], 1st [place] [address] 06/15/2025 9:00 AM EST Office Visit [facility] [address] Floor, [address] [place] [address] Anup Ward MD, [place] 22 [facility], [address] [place] [address] [email or web address] 11/24/2025 9:00 AM EDT Office Visit [facility] 15 [facility] [address] [place] [address] Pooja Elam MD 15 [facility] [address] [place] [address] documented as of this encounter Results * US ABDOMEN LIMITED RIGHT UPPER QUADRANT (12/05/2022 9:05 AM EDT) Anatomical Region Laterality Modality Abdomen Ultrasound 12/05/2022 9:09 AM EDT Impressions 12/05/2022 9:10 AM EDT Diffuse fatty liver. Narrative 12/05/2022 9:10 AM EDT US ABDOMEN LIMITED RIGHT UPPER QUADRANT TECHNIQUE: US Abdominal limited right upper quadrant. COMPARISON: March 01, 2022 FINDINGS: Liver: Diffuse fatty liver. No focal lesions. Main Portal Vein: Patent with normal direction of flow. Gallbladder: Normal. No gallstones or gallbladder wall thickening. Glass's Sign: Negative. Biliary: Normal. No intrahepatic or extrahepatic biliary ductal dilatation. The common bile duct measures 4 mm. Procedure Note True Alves MD, [place] - 12/05/2022 US ABDOMEN LIMITED RIGHT UPPER QUADRANT TECHNIQUE: US Abdominal limited right upper quadrant. COMPARISON: March 01, 2022 FINDINGS: Liver: Diffuse fatty liver. No focal lesions. Main Portal Vein: Patent with normal direction of flow. Gallbladder: Normal. No gallstones or gallbladder wall thickening. Glass's Sign: Negative. Biliary: Normal. No intrahepatic or extrahepatic biliary ductaldilatation. The common bile duct measures 4 mm. IMPRESSION: Diffuse fatty liver. us Mare JOSHI IMG US ABDOMEN Final Resul t documented in this encounter Visit Diagnoses Diagnosis NAFLD (nonalcoholic fatty liver disease)- Primary Gastroesophageal reflux disease with esophagitis, unspecified whether hemorrhage NAFLD (nonalcoholic fatty liver disease) Gastroesophageal reflux disease with esophagitis, unspecified whether hemorrhage documented in this encounter Additional Health Concerns Assessment Noted Time PHQ-2 Depression Total Score: 0 09/24/19 9:43 AM EDT documented as of this encounter Care Teams Power Barker Relationship Specialty Start Date End Date Sivan Montgomery MD, MPH 15 [facility] [address] [place] [address] [email or web address] PCP - General Family Medicine 08/20/20 Ruy Darling MD [address] [place] [address] [email or web address] Historical LMR Provider 01/30/17 12/23/23 Kathleen Lopez MD 22 [facility], [address] [place] [address] Historical LMR Provider 01/30/17 Santa Lewis MD 22 [facility], [facility] [place] [address] Endocrinology 10/26/20 Alma Delia Castro MD 22 [facility], [address] [place] [address] Rheumatology 02/20/22 Archie Ramos MD [address] [place] [address] [address] [place] [address] Orthopedic Surgery 12/24/23 Sung Jane MD [address] [place] [address] Neurology 12/24/23 José Hernández MD [address] [place] [address] [address] [place] [address] Neurosurgery 12/24/23 Ruy Darling MD [address] [place] [address] [email or web address] Intensive Care 12/24/23 documented as of this encounter Additional Source Comments The information contained in this document represents components of the legal health record. It is not the complete legal health record.[facility]
--- OUTSIDE RECORDS SUMMARY | 2024-12-09 07:40 | XMS_ITS | Encounter Summary ---
Author Organization [facility] Address [address] [facility] [address] [place] [address] Phone Care Team Providers Care Infertility Medical Assistant Name Role Phone Ruy Darling MD Unavailable [phone] Kathleen Lopez MD Unavailable Sivan Montgomery MD, MPH Primary Care Provid er Santa Lewis MD Unavailable [phone] Alma Delia Castro MD Unavailable Archie Ramos MD Unavailable [phone] Sung Jane MD Unavai lable José Hernández MD Unavailable [phone] Ruy Darling MD Unavailable [phone] Encounter Details Date Type Department Care Team (Latest Contact Info) Description 02/12/2023 Transcribe Orders Virtual Department [address] [place] [address] Mare Drake PA [address] [place] [phone] Elevated LFTs (Primary Dx) Social History Tobacco Use [...] high school, GED, job training, learning the Bahamian language, technical skills, or developing parenting skills)? [...] 12/04/2024 Procedure Pass [facility] [address] [place] [address] 01/01/2025 9:30 AM EDT Appointment [facility] [address] [place] [address] Pooja Elam MD [address] [address] 01/08/2025 9:00 AM EDT Nurse Only [facility] Primary Care [address] [address] Sivan Montgomery MD, MPH [address] [address] 04/01/2025 8:00 AM EST Office Visit [facility] Rheumatology [address] [place] [address] Alma Delia Castro MD 22 [facility], [address] [place] [address] [email or web address] 05/15/2025 1:20 PM EST Office Visit [facility] [address] Floor, [address] [place] [address] Juan Burns MD 22 [facility], [address] [place] [address] 05/26/2025 8:00 AM EST Office Visit [facility] Primary Care [address] [place] [address] Pooja Elam MD [address] [address] 06/08/2025 9:00 AM EST Office Visit [facility] Diabetes Center [address] [place] [address] Santa Lewis MD 22 [facility], 1st [place] [address] 06/15/2025 9:00 AM EST Office Visit [facility] 22 [facility] 3rd Floor, [address] [place] [address] Anup Ward MD, MS 22 [facility], [address] [place] [address] 11/24/2025 9:00 AM EDT Office Visit [facility] 15 [facility] [address] [place] [address] Pooja Elam MD 15 [facility] [address] [place] [address] documented as of this encounter Results * US ABDOMEN LIMITED RIGHT UPPER QUADRANT (03/01/2023 8:20 AM EST) Anatomical Region Laterality Modality Abdomen Ultrasound 03/01/2023 8:54 AM EST Impressions 03/01/2023 8:54 AM EST Mild fatty liver. Narrative 03/01/2023 8:54 AM EST US ABDOMEN LIMITED RIGHT UPPER QUADRANT Referring clinician's provided indication for this examination in Epic: Outside Radiology Order; ELEVATED LFT'S TECHNIQUE: US Abdominal limited right upper quadrant. COMPARISON: December 05, 2022 FINDINGS: Liver: Mild fatty liver. No focal lesions. Main Portal Vein: Patent with normal direction of flow. Gallbladder: Normal. No gallstones or gallbladder wall thickening. Glass's Sign: Negative. Biliary: Normal. No intrahepatic or extrahepatic biliary ductal dilatation. The common bile duct measures 5 mm. Procedure Note True Alves MD, [place] - 03/01/2023 US ABDOMEN LIMITED RIGHT UPPER QUADRANT Referring clinician's provided indication for this examination in [facility]:Outside Radiology Order; ELEVATED LFT'S TECHNIQUE: US Abdominal limited right upper quadrant. COMPARISON: December 05, 2022 FINDINGS: Liver: Mild fatty liver. No focal lesions. Main Portal Vein: Patent with normal direction of flow. Gallbladder: Normal. No gallstones or gallbladder wall thickening. Glass's Sign: Negative. Biliary: Normal. No intrahepatic or extrahepatic biliary ductaldilatation. The common bile duct measures 5 mm. IMPRESSION: Mild fatty liver. us Mare JOSHI IMG US ABDOMEN Final Resul t documented in this encounter Visit Diagnoses Diagnosis Elevated LFTs- Primary Other abnormal blood chemistry Elevated LFTs Other abnormal blood chemistry documented in this encounter Additional Health Concerns Assessment Noted Time PHQ-2 Depression Total Score: 0 09/24/19 19 9:43 AM EDT documented as of this encounter Care Teams Infertility Medical Assistant Relationship Specialty Start Date End Date Sivan Montgomery MD, MPH [address] [facility] [address] [place] [address] [email or web address] PCP - General Family Medicine 08/20/20 Ruy Darling MD [address] [place] [address] [email or web address] Historical LMR Provider 01/30/17 12/23/23 Kathleen Lopez MD 22 [facility], [address] [place] [address] [email or web address] Historical LMR Provider 01/30/17 Santa Lewis MD 22 [facility], [address] [place] [address] Endocrinology 10/26/20 Alma Delia Castro MD 22 [facility], [address] [place] [address] Rheumatology 02/20/22 Archie Ramos MD [address] [place] [address] [address] [place] [address] Orthopedic Surgery 12/24/23 Sung Jane MD [address] [place] [address] Neurology 12/24/23 José Hernández MD [address] [place] [address] [address] [place] [address] Neurosurgery 12/24/23 Ruy Darling MD [address] [place] [address] Intensive Care 12/24/23 documented as of this encounter Additional Source Comments The information contained in this document represents components of the legal health record. It is not the complete legal health record.[facility]
--- OUTSIDE RECORDS SUMMARY | 2024-12-09 07:40 | XMS_ITS | Encounter Summary ---
Author Organization [facility] Address 399 [facility] [address] [place] [address] Phone Care Team Providers Care Medical Receptionist Assistant Name Role Phone Ruy Darling MD Unavailable [phone] Kathleen Lopez MD Unavailable Sivan Montgomery MD, MPH Primary Care Provid er Santa Lewis MD Unavailable [phone] Alma Delia Castro MD Unavailable Archie Ramos MD Unavailable [phone] Sung Jane MD Unavai lable José Hernández MD Unavailable [phone] Ruy Darling MD Unavailable [phone] Encounter Details Date Type Department Care Team (Latest Contact Info) Description 11/20/2022 Transcribe Orders [facility] [address] [id number] Mare Drake PA 10 [place], [place] [id number] Gastroesophageal reflux disease, unspecified whether esophagitis present (Primary Dx); Hyperlipidemia, unspecified hyperlipidemia type Social History Tobacco Use Types Packs/Day [...] high school, GED, job training, learning the Togolese language, technical skills, or developing parenting skills)? No 07/25/2021 Food Answer Date Recorded Within the past 6 months we worried whether our food would run out before we got money to buy more. Never True 07/25/2021 Food didn't last Not on file 07/25/2021 Residential Stability Answer Date Recor ded What is your housing situation today? I have cristian still 07/25/2021 How many times have you move [...] 12/04/2024 Procedure Pass [facility] 30 [place] [address] 01/01/2025 9:30 AM EDT Appointment [facility] 30 [place] [address] Pooja Elam MD [address] [address] 01/08/2025 9:00 AM EDT Nurse Only [facility] Primary Care [address] [address] Sivan Montgomery MD, MPH [address] [address] 04/01/2025 8:00 AM EST Office Visit [facility] Rhe[facility] 22 [place] [address] Alma Delia Csatro MD 22 [facility], [address] [place] [address] [email or web address] 05/15/2025 1:20 PM EST Office Visit [facility] [address] [place] [address] 3rd Floor, [address] [place] [address] Juan Burns MD 22 [facility], [address] [place] [address] 05/26/2025 8:00 AM EST Office Visit [facility] Primary Care [address] [address] Pooja Elam MD [address] [address] 06/08/2025 9:00 AM EST Office Visit [facility] [address] [place] [address] Santa Lewis MD 22 [facility], 1st [place] [address] 06/15/2025 9:00 AM EST Office Visit [facility] [address] 3rd Floor, [address] [place] [address] Anup Ward MD, MS 22 [facility], [address] [place] [address] 11/24/2025 9:00 AM EDT Office Visit [facility] 15 [facility] [address] [place] [address] Pooja Elam MD 15 [facility] [address] [place] [address] documented as of this encounter Results * (ABNORMAL) Lipid panel (11/20/2022 10:20 AM EDT) HDL 36 mg/dL [facility] Comment: Interpretation <40 mg/dL: Low HDL cholesterol (major risk factor for CHD) Greater than or equal to 60 mg/dL: High HDL cholesterol ( negative risk factor for CHD) HDL - cholesterol is affected by a number of factors, e.g. smoking, excerise, hormones, sex and age. CHOLESTEROL 147 0 - 240 mg/dL [facility] TRIGLYCERIDES 203(H) 30 - 160 mg/dL [facility] LDL 70 50 - 129 mg/dL [facility] Comment: LDL levels in terms of risk for coronary heart disease: <100 mg/dL: Optimal 100-129 mg/dL: Near or above optimal 130-159 mg/dL: Borderline high 160-189 mg/dL: High >190 mg/dL: Very High CARDIAC RISK RATIO 4.1 3.3 - 4.4 C [facility] Blood 11/20/2022 10:2 0 AM EDT 11/20/2022 10:31 AM EDT us Mare [facility] BLOOD ORDERABLES Final Result [address] [address] * (ABNORMAL) Liver fibrosis test (11/20/2022 10:20 AM EDT) Fibrosis score 0.35 [facility] Interpretation (Fibrosis) SEE NOTE [facility] Comment: (NOTE) minimal fibrosis Fibro Test Score (f) Metavir Score [...] : F4 (severe fibrosis) HCV Fibrosis Grade SEE NOTE Q [facility] Comment: (NOTE) Result: F1-F2 NECROINFLAMM SCORE 0.53 Q [facility] NECROINFLAMM GRADE A2 Q [facility] NECROINFLAMM INTERP SEE NOTE [facility] Comment: (NOTE) significant activity ActiTest Score (a) Metavir Score a>=0 and a<=0.17 : A0 (no activity) a>0.17 and a<=0.29 : A0-A1 (no activity) a>0.29 and a<=0.36 : A1 (minimal activity) a>0.36 and a<=0.52 : A1-A2 (minimal activity) a>0.52 and a<=0.60 : A2 (significant activity) a>0.60 and a<=0.62 : A2-A3 (significant activity) a>0.62 and a<=1.00 : A3 (severe activity) A2 Macroglobulin 194 106 - 279 mg/dL [facility] [employer] [facility] Haptoglobin 130 43 - 212 mg/dL [facility] Apolipoprotein A1 137 101 - 198 mg/dL [facility] TOTAL BILIRUBIN 0.6 0.2 - 1.2 mg/dL [facility] GGT 43 3 - 65 U/L [facility] ALT 88(H) 6 - 29 U/L [facility] Specimen/Product ID [id number] [facility] [employer] [facility] Comments (Chemistry) SEE NOTE [facility] [employer] [facility] Comment: (NOTE) The reliability of results is dependent on compliance with the preanalytical and analytical conditions recommended by [employer]. The tests have to be deferred for: [...] The performance characteristics have been determined by [facility]. It has not been cleared or approved by the U.S. Food and Drug Administration. Performance characteristics refer to the analytical performance of the test. [employer], the associated logo, [employer] and all associated [employer] galvez are the registered trademarks of [employer]. All third constitution party galvez - (R) and (TM) - are the property of their respective owners. (C) 0181-3039 [employer]. All rights reserved. Blood 11/20/2022 10:2 0 AM EDT 11/20/2022 10:32 AM EDT us Mare [facility] BLOOD ORDERABLES Final Result [facility]ILL[facility] [address] [place] [address], [facility] [phone] * (ABNORMAL) Comprehensive metabolic panel (11/20/2022 10:20 AM EDT) SODIUM 137 133 - 146 mmol/L [facility] POTASSIUM 3.6 3.3 - 5.1 mmol/L [facility] CHLORIDE 98 96 - 108 mmol/L [facility] CO2 25 21 - 35 mmol/L [facility] BUN 21(H) 6 - 19 mg/dL [facility] CREATININE 0.80 0.5 - 1.5 mg/dL [facility] GLUCOSE 134(H) 70 - 99 mg/dL [facility] ALBUMIN 4.6 3.9 - 4.8 g/dL [facility] TOTAL PROTEIN 7.4 6.5 - 8.0 g/dL [facility] CALCIUM 10.2 8.4 - 10.3 mg/dL [facility] ALKALINE PHOSPHATASE 149(H) 39 - 117 U/L [facility] TOTAL BILIRUBIN 0.5 0.0 - 1.2 mg/dL [facility] AST 49(H) 0 - 37 U/L [facility] ALT 98(H) 0 - 40 U/L [facility] GLOBULIN 2.8 1 - 4.8 g/dL [facility] EGFR 79 >59 mL/min/1.7 3m2 [facility] Comment:Estimated glomerular filtration rate calculated using the CKD-EPI refit equation. ANION GAP 18 10 - 20 mmol/L [facility] Blood 11/20/2022 10:2 0 AM EDT 11/20/2022 10:32 AM EDT us Mare [facility] BLOOD ORDERABLES Final Result [facility] [address] [place] [address] * (ABNORMAL) CBC and differential (11/20/2022 10:20 AM EDT) WBC 8.31 4.00 - 11.00 K/uL [facility] RBC 4.70 3.72 - 5.30 M/uL [facility] HGB 14.5 11.4 - 15.9 g/dL [facility] HCT 43.6 34.2 - 46.8 % [facility] PLT NA 140 - 430 K/uL [facility] Comment:Unable to obtain acc urate platelet count due to severe platelet clumping. Platelet count appears normal on slide MCV 92.8 78.0 - 97.0 fL [facility] MCH 30.9 25.0 - 33.0 pg [facility] MCHC 33.3 32.0 - 36.0 g/dL [facility] RDW 12.6 11.0 - 16.0 % [facility] MPV 13.3(H) 8.4 - 12.8 fl [facility] DIFF METHOD Auto [facility] NEUTS 63.2 43.0 - 75.0 % [facility] LYMPHS 25.4 18.2 - 47.4 % [facility] MONOS 6.4 4.00 - 11.00 % [facility] EOS 3.9 0.0 - 8.0 % [facility] BASOS 0.7 0.0 - 2.0 % [facility] Granulocytes, immature (%) 0.4 0.0 - 0.9 % [facility] ABSOLUTE NEUTS 5.26 1.80 - 7.70 K/uL [facility] ABSOLUTE LYMPHS 2.11 1.00 - 3.10 K/uL [facility] ABSOLUTE MONOS 0.53 0.20 - 0.80 K/uL [facility] ABSOLUTE EOS 0.32 0.00 - 0.80 K/uL [facility] ABSOLUTE BASOS 0.06 0.00 - 0.09 K/uL [facility] Granulocytes, immature 0.03 0.00 - 0.05 K/uL [facility] Blood 11/20/2022 10:2 0 AM EDT 11/20/2022 10:32 AM EDT us Mare [facility] BLOOD ORDERABLES Final Result [facility] [address] [place] [address] documented in this encounter Visit Diagnoses Diagnosis Gastroesophageal reflux disease, unspecified whether esophagitis present- Primary Hyperlipidemia, unspecified hyperlipidemia type documented in this encounter Additional Health Concerns Assessment Noted Time PHQ-2 Depression Total Score: 0 09/24/19 19 9:43 AM EDT documented as of this encounter Care Teams Medical Receptionist Assistant Relationship Specialty Start Date End Date Sivan Montgomery MD, MPH 15 [facility] [address] [place] [address] [email or web address] PCP - General Family Medicine 08/20/20 Ryu Darling MD [address] [place] [address] [email or web address] Historical LMR Provider 01/30/17 12/23/23 Kathleen Lopez MD 22 [facility], [facility] 102 [place] [address] [email or web address] Historical LMR Provider 01/30/17 Santa Lewis MD 22 [facility], 1st [place] [address] Endocrinology 10/26/20 Alma Delia Castro MD 22 [facility], [facility] 203 [place] [address] Rheumatology 02/20/22 Archie Ramos MD [address] [place] [address] 203 [place] [address] Orthopedic Surgery 12/24/23 Sung Jane MD [address] [place] [address] Neurology 12/24/23 José Hernández MD [address] [place] [address] [place] [address] Neurosurgery 12/24/23 Ruy Darling MD [address] [place] [address] [email or web address] Intensive Care 12/24/23 documented as of this encounter Additional Source Comments The information contained in this document represents components of the legal health record. It is not the complete legal health record.[facility]
--- OUTSIDE RECORDS SUMMARY | 2024-12-09 07:40 | XMS_ITS | Encounter Summary ---
Author Organization [facility] Address 399 [facility] [address] [place] [address] Phone Care Team Providers Care Go Cart Mechanic Name Role Phone Ruy Darling MD Unavailable [phone] Kathleen Lopez MD Unavailable Sivan Montgomery MD, MPH Primary Care Provid er Santa Lewis MD Unavailable [phone] Alma Delia Castro MD Unavailable Archie Ramos MD Unavailable [phone] Sung Jane MD [facility] José Hernández MD Unavailable [phone] Ruy Darling MD Unavailable [phone] Encounter Details Date Type Department Care Team (Late st Contact Info) Description 07/05/2022 Procedure Pass [facility] [address] [place] [address] Social History Tobacco Use Types Packs/Day Years [...] high school, GED, job training, learning the Angolan language, technical skills, or developing parenting skills)? [...] 12/04/2024 Procedure Pass [facility] 30 [place] [address] 01/01/2025 9:30 AM EDT Appointment [facility] 30 [place] [address] Pooja Elam MD [address] [address] 01/08/2025 9:00 AM EDT Nurse Only [facility] Primary Care 15 [facility] [address] [place] [address] Sivan Montgomery MD, MPH 15 [facility]. [address] [place] [address] 04/01/2025 8:00 AM EST Office Visit [facility] Rheumatology 22 [place] [address] Alma Delia Castro MD 22 [facility], [address] [place] [address] [email or web address] 05/15/2025 1:20 PM EST Office Visit [facility] 22 [facility] 3rd Floor, [address] [place] [address] Juan Burns MD 22 [facility], [address] [place] [address] 05/26/2025 8:00 AM EST Office Visit [facility] Primary Care 15 [facility] [address] [place] [address] Pooja Elam MD [address] [address] 06/08/2025 9:00 AM EST Office Visit [facility] 22 [place] [address] Santa Lewis MD 22 [facility], 1st [place] [address] 06/15/2025 9:00 AM EST Office Visit [facility] 22 [facility] 3rd Floor, [address] [place] [address] Anup Ward MD, MS 22 [facility], [address] [place] [address] [email or web address] 11/24/2025 9:00 AM EDT Office Visit [facility] 15 [facility] [address] [place] [address] Pooja Elam MD 15 [facility] [address] [place] [address] [email or web address] documented as of this encounter Visit Diagnoses Not on filedocumented in this encounter Additional Health Concerns Assessment Noted Time PHQ-2 Depression Total Score: 0 09/24/19 19 9:43 AM EDT documented as of this encounter Care Teams Go Cart Mechanic Relationship Specialty Start Date End Date Sivan Montgomery MD, MPH 15 [facility]. 201 [place] [address] [email or web address] PCP - General Family Medicine 08/20/20 Ruy Darling MD [address] [place] [address] [email or web address] Historical LMR Provider 01/30/17 12/23/23 Kathleen Lopez MD 22 [facility], [address] [address] Historical LMR Provider 01/30/17 Santa Lewis MD 22 [facility], [address] [place] [address] Endocrinology 10/26/20 Alma Delia Castro MD 22 [facility], [address] [place] [address] Rheumatology 02/20/22 Archie Ramos MD [address] [place] [address] [address] [place] [address] Orthopedic Surgery 12/24/23 Sung Jane MD [address] [place] [address] Neurology 12/24/23 José Hernández MD [address] [place] [address] [address] [place] [address] Neurosurgery 12/24/23 Ruy Darling MD [address] [place] [address] [email or web address] Intensive Care 12/24/23 documented as of this encounter Additional Source Comments The information contained in this document represents components of the legal health record. It is not the complete legal health record.[facility]
--- OUTSIDE RECORDS SUMMARY | 2024-12-09 07:41 | XMS_ITS | Encounter Summary ---
Author Organization [facility] Address 399 [facility] [address] [place] [address] Phone Care Team Providers Care Terminal Superintendent Name Role Phone Ruy Darling MD Unavailable [phone] Adin Becerra MD Unavailable [email or web address] Kathleen Lopez MD Unavailable Weston Hamilton DO Unavailable [phone] Sivan Montgomery MD, MPH Primary Care Provid er Santa Lewis MD Unavailable [phone] Alma Delia Castro MD Unavailable [phone] Archie Ramos MD Unavailable Sung Jane MD Unavailable José Hernández MD Unavailable [phone] Ruy Darling MD Unavailable [phone] Encounter Details Date Type Department Care Team (Late st Contact Info) Description 04/18/2021 Ancillary Orders [address] [address] Quin Kendall MD [address] [place] [address] Orthopedics & Sports Medicine, [place] [address] Right hip pain Social History Tobacco Use Types Packs/Day [...] 12/04/2024 Procedure Pass [facility] 30 [place] [address] 01/01/2025 9:30 AM EDT Appointment [facility] 30 [place] [address] Pooja Elam MD [address] [address] 01/08/2025 9:00 AM EDT Nurse Only [facility] Primary Care 15 [facility] 201 [place] [address] Sivan Montgomery MD, MPH 15 [facility] 201 [place] [address] 04/01/2025 8:00 AM EST Office Visit [facility] Rheumatology [address] [place] [address] Alma Delia Castro MD 22 [facility] 203 [place] [address] [email or web address] 05/15/2025 1:20 PM EST Office Visit [facility] [address] 3rd Floor, [address] [place] [address] Juan Burns MD 22 [facility], [address] [place] [address] 05/26/2025 8:00 AM EST Office Visit [facility] Primary Care [address] [place] [address] Pooja Elam MD 15 [facility] [address] [place] [address] 06/08/2025 9:00 AM EST Office Visit [facility] 22 [place] [address] Santa Lewis MD 22 [facility], 1st [place] [address] 06/15/2025 9:00 AM EST Office Visit [facility] [address] 3rd Floor, [address] [place] [address] Anup Ward MD, MS 22 [facility], [address] [place] [address] 11/24/2025 9:00 AM EDT Office Visit [facility] Primary Care [address] [place] [address] Pooja Elam MD 15 [facility]. [address] [place] [address] Pending Results Name Type Priority Associated Diagnoses Date /Time FL Guidance Needle Placement Non-Spine Imaging Routine Right hip pain 04/19/2021 8:57 AM EST Scheduled Orders Name Type Priority Associated Diagnoses Orde r Schedule FL Guidance Needle Placement Non-Spine Imaging Routine Right hip pain 1 Occurrences starting 04/18/2021 until 07/17/2021 documented as of this encounter Visit Diagnoses Diagnosis Right hip pain Pain in joint, pelvic region and thigh documented in this encounter Additional Health Concerns Assessment Noted Time PHQ-2 Depression Total Score: 0 09/24/19 19 9:43 AM EDT documented as of this encounter Care Teams Terminal Superintendent Relationship Specialty Start Date End Date Sivan Montgomery MD, MPH [address] [address] [email or web address] PCP - General Family Medicine 08/20/20 Ruy Darling MD [address] [place] [address] [email or web address] Historical LMR Provider 01/30/17 12/23/23 Adin Becerra MD [email or web address] Historical LMR Provider 01/30/17 02/19/22 Kathleen Lopez MD [address] [address] [email or web address] Historical LMR Provider 01/30/17 Weston Hamilton DO [address] [place] [address] Historical LMR Provider 01/30/1702/19 Santa Lewis MD 22 [facility], [address] [place] [address] [email or web address] Endocrinology 10/26/20 Alma Delia Castro MD 22 [facility], [facility] 203 [place] [address] Rheumatology 02/20/22 Archie Ramos MD [address] [place] [address] [address] [place] [address] Orthopedic Surgery 12/24/23 Sung Jane MD [address] [place] [address] Neurology 12/24/23 José Hernández MD [address] [place] [address] [address] [place] [address] Neurosurgery 12/24/23 Ruy Darling MD [address] [place] [address] [email or web address] Intensive Care 12/24/23 documented as of this encounter Additional Source Comments The information contained in this document represents components of the legal health record. It is not the complete legal health record.[facility]
--- OUTSIDE RECORDS SUMMARY | 2024-12-09 07:41 | XMS_ITS | Encounter Summary ---
Author Organization [facility] Address [address] [facility] [address] [place] [address] Phone Care Team Providers Care Jumpbasting Facing Baster Name Role Phone Ruy Darling MD Unavailable [phone] Adin Becerra MD Unavailable [email or web address] Kathleen Lopez MD Unavailable Weston Hamilton DO Unavailable [phone] Dionne Latif MD Unavailable Shelby Keenan DO Primary Care Provider [phone] Sivan Montgomery MD, MPH Primary Care Provid er Santa Lewis MD Unavailable [phone] Alma Delia Castro MD Unavailable Archie Ramos MD Unavailable [phone] Sung Jane MD Unavailable José Hernández MD Unavailable Ruy Darling MD Unavailable [phone] Encounter Details Date Type Department Care Team (Latest Contact Info) Description 09/04/2018 Transcribe Orders [facility] Department 30 [place], [place] [id number] Bridger Max MD [address] [place] [address] [email or web address] Elevated LFTs (Primary Dx) Social History Tobacco [...] 12/04/2024 Procedure Pass [facility] 30 [place] [address] 01/01/2025 9:30 AM EDT Appointment [facility] 30 [place] [address] Pooja Elam MD [address] [place] [address] [email or web address] 01/08/2025 9:00 AM EDT Nurse Only [facility] [place] Primary Care [address] [facility] 201 [place] [address] Sivan Montgomery MD, MPH 15 [facility] 201 [place] [address] [email or web address] 04/01/2025 8:00 AM EST Office Visit [facility] Rheumatology [address] [place] [address] Alma Delia Castro MD [address] [facility], [address] [place] [address] [email or web address] 05/15/2025 1:20 PM EST Office Visit [facility] [address] 3rd Floor, [address] [place] [address] Juan Burns MD [address] [facility], [address] [place] [address] 05/26/2025 8:00 AM EST Office Visit [facility] Primary Care [address] [place] [address] Pooja Elam MD [address] [address] 06/08/2025 9:00 AM EST Office Visit [facility] [address] [place] [address] Santa Lewis MD [address] [facility], 1st [place] [address] 06/15/2025 9:00 AM EST Office Visit [facility] [address] 3rd Floor, [address] [place] [address] Anup Ward MD, MS [address] [facility], [address] [place] [address] 11/24/2025 9:00 AM EDT Office Visit [facility] Primary Care [address] [place] [address] Pooja Elam MD 15 [facility]. [address] [place] [address] documented as of this encounter Results * US ABDOMEN LIMITED RIGHT UPPER QUADRANT (09/19/2018 7:54 AM EDT) Anatomical Region Laterality Modality Abdomen Ultrasound 09/19/2018 8:00 AM EDT Impressions 09/19/2018 8:03 AM EDT Diffuse increase in hepatic echogenicity consistent with hepatic steatosis with some fatty sparing by the gallbladder fossa. POS - [id number] Narrative 09/19/2018 8:03 AM EDT COMPARISON: CT 01/31/2016 TECHNIQUE: Ultrasonic examination of the abdomen was performed and multiple static images obtained. FINDINGS: Pancreas: Limited visualization of the head and tail. No ductal dilatation the visualized body. Upper Aorta and IVC: No finding of concern detected in the visualized portions. Gallbladder and Biliary tree: No abnormality detected. Common bile duct measured at 5 mm. Liver: There is increased echogenicity of the liver, fairly striking relative to renal cortical echogenicity. This is typically associated with hepatic steatosis. There is a small amount of sparing by the gallbladder fossa. No masses seen. Right kidney: No hydronephrosis on limited imaging. Other: No ascites. Procedure Note Ramon Girard MD - 09/19/2018 COMPARISON: CT 01/31/2016 TECHNIQUE: Ultrasonic examination of the abdomen was performed andmultiple static images obtained. FINDINGS: Pancreas: Limited visualization of the head and tail. No ductal dilatationthe visualized body. Upper Aorta and IVC: No finding of concern detected in the visualizedportions. Gallbladder and Biliary tree: No abnormality detected. Common bile ductmeasured at 5 mm. Liver: There is increased echogenicity of the liver, fairly strikingrelative to renal cortical echogenicity. This is typically associated withhepatic steatosis. There is a small amount of sparing by the gallbladderfossa. No masses seen. Right kidney: No hydronephrosis on limited imaging. Other: No ascites. IMPRESSION: Diffuse increase in hepatic echogenicity consistent with hepatic steatosiswith some fatty sparing by the gallbladder fossa. POS - [id number] Bridger Max MD IMG US ABDOMEN Final Result documented in this encounter Visit Diagnoses Diagnosis Elevated LFTs- Primary Other abnormal blood chemistry Elevated LFTs Other abnormal blood chemistry documented in this encounter Care Teams Jumpbasting Facing Baster Relationship Specialty Start Date End Date Shelby Keenan DO [address] [place] [address] [email or web address] PCP - General Family Medicine 07/11/18 08/19/20 Sivan Montgomery MD, MPH [address] [place] [address] [email or web address] PCP - General Family Medicine 08/20/20 Ruy Darling MD [address] [place] [address] [email or web address] Historical LMR Provider 01/30/17 12/23/23 Adin Becerra MD [email or web address] Historical LMR Provider 01/30/17 02/19/22 Kathleen Lopez MD [address] [place] [address] [email or web address] Historical LMR Provider 01/30/17 Weston Hamilton DO [address] [place] [address] Historical LMR Provider 01/30/1702/19 Dion[place] [address] [email or web address] Historical LMR Provider 01/30/17 10/24/20 Santa Lewis MD [address] [place] [address] [place] [address] Endocrinology 10/26/20 Alma Delia Castro MD [address] [facility], [address] [place] [address] Rheumatology 02/20/22 Archie Ramos MD [address] [place] [address] [address] [place] [address] Orthopedic Surgery 12/24/23 Sung Jane MD [address] [place] [address] Neurology 12/24/23 José Hernández MD [address] [place] [address] [address] [place] [address] Neurosurgery 12/24/23 Ruy Darlnig MD [address] [place] [address] Intensive Care 12/24/23 documented as of this encounter Additional Source Comments The information contained in this document represents components of the legal health record. It is not the complete legal health record.[facility]
--- OUTSIDE RECORDS SUMMARY | 2024-12-09 07:41 | XMS_ITS | Encounter Summary ---
Author Organization [facility] Address [address] [place] [address] Phone Care Team Providers Care Clinic Specialist Name Role Phone Kathleen Lopez MD Unavailable Sivan Montgomery MD, MPH Primary Care Provid er Santa Lewis MD Unavailable [phone] Alma Delia Castro MD Unavailable Archie Ramos MD Unavailable Sung Jane MD Unavai lable José Hernández MD Unavailable [phone] Ruy Darling MD Unavailable [phone] Reason for Visit * Reason Onset Date Comments TCM Visit 11/24/2024 Encounter Details Date Type Department Care Team (Late st Contact Info) Description 11/24/2024 Telephone [facility] Primary Care [address] [facility] [address] [place] [address] Sivan Montgomery MD, MPH 15 [facility] [address] [place], [place] [id number] [email or web address] TCM Visit Social History Tobacco Use Types Packs/Day Years [...] on file documented as of this encounter Progress Notes * Tessa Galicia RN - 11/24/2024 3:21 PM EDT Called [pt. Appt already scheduled as 40 minn vaughn TCM but it looks like it should be a [address] Elam do you want a longer appt or 20 min FUV ok? ( Pt was not admitted so does not qualify for TCM). Pls advise. * Becki Huber - 11/24/2024 1:20 PM EDT [facility] PEN Top Smart Phrases: Transitional Care Management New Patient: YES/NO: no Hospitalization Name:[place] Discharge Date: 11/22/2024 Reason for Visit+ Diagnosis: pt clasped- Afib Is the discharge summary in patient chart:YES/NO: no If not did you inform the patient/patient advocate to fax it to the office: YES/NO: no Please inform the patient/patient advocate to fax and bring a copy to the appt. Appointment Date: 12/04/2024 Is the appt: virtual in person: in person Awareness: Appt need to be schedule with in 2 to 14 calendar days from discharge date Additional Note (if applicable): [facility] CSS Agent (Please do not reply to this user, as this inbox is not monitored. Thank you.) Thank you. documented in this encounter Plan of Treatment Upcoming Encounters Date Type Department Care Team (Late st Contact Info) Description 12/04/2024 Procedure Pass [facility] Echo Lab 30 [place] [address] 01/01/2025 9:30 AM EDT Appointment [facility] Echo Lab 30 [place] [address] Pooja Elam MD [address] [address] 01/08/2025 9:00 AM EDT Nurse Only [facility] Primary Care [address] [place] [address] Sivan Montgomery MD, MPH [address] [address] 04/01/2025 8:00 AM EST Office Visit [facility] Rheumatology [address] [place] [address] Alma Delia Castro MD [address] [place] [address], [address] [place] [address] [email or web address] 05/15/2025 1:20 PM EST Office Visit [facility] [address] [place] [address] Dr 3rd Floor, [address] [place] [address] Juan Burns MD 22 [facility], [address] [place] [address] 05/26/2025 8:00 AM EST Office Visit [facility] [place] Primary Care [address] [facility] [address] [place] [address] Pooja Elam MD [address] [address] 06/08/2025 9:00 AM EST Office Visit [facility] 22 [place] [address] Santa Lewis MD 22 [facility], 1st [place] [address] 06/15/2025 9:00 AM EST Office Visit [facility] [address] [facility] 3rd Floor, [address] [place] [address] Anup Ward MD, MS 22 [facility], [address] [place] [address] 11/24/2025 9:00 AM EDT Office Visit [facility] Primary Care [address] [facility] [address] [place] [address] Pooja Elam MD 15 [facility]. 201 [place] [address] documented as of this encounter Visit Diagnoses Not on filedocumented in this encounter Additional Health Concerns Assessment Noted Time PHQ-2 Depression Total Score: 0 11/21/19 24 9:11 AM EDT documented as of this encounter Care Teams Clinic Specialist Relationship Specialty Start Date End Date Sivan Montgomery MD, MPH 15 [facility] [address] [place] [address] PCP - General Family Medicine 08/20/20 Kathleen Lopez MD 22 [facility], [address] [place] [address] Historical LMR Provider 01/30/17 Santa Lewis MD 22 [facility], 1st [place] [address] Endocrinology 10/26/20 Alma Delia Castro MD 22 [facility], [address] [place] [address] Rheumatology 02/20/22 Archie Ramos MD [address] [place] [address] [address] [place] [address] Orthopedic Surgery 12/24/23 Sung Jane MD [address] [place] [address] Neurology 12/24/23 José Hernández MD [address] [place] [address] [address] [place] [address] Neurosurgery 12/24/23 Ruy Darling MD [address] [place] [address] [email or web address] Intensive Care 12/24/23 documented as of this encounter Additional Source Comments The information contained in this document represents components of the legal health record. It is not the complete legal health record.[facility]
--- OUTSIDE RECORDS SUMMARY | 2024-12-09 07:41 | XMS_ITS | Encounter Summary ---
Author Organization [facility] Address [address] [facility] [address] [place] [address] Phone Care Team Providers Care Vacuum Worker Name Role Phone Ruy Darling MD Unavailable [phone] Adin Becerra MD Unavailable [email or web address] Kathleen Lopez MD Unavailable Weston Hamilton DO Unavailable [phone] Sivan Montgomery MD, MPH Primary Care Provid er Santa Lewis MD Unavailable [phone] Alma Delia Castro MD Unavailable Archie Ramos MD Unavailable [phone] Sung Jane MD Unavailable José Hernández MD Unavailable [phone] Ruy Darling MD Unavailable [phone] Encounter Details Date Type Department Care Team (Late st Contact Info) Description 04/18/2021 Ancillary Orders [facility] Orthopedics & Sports Medicine [address] [place] [address] Quin Kendall MD [address] [place] [address] Orthopedics & Sports Medicine, [facility] [place] [address] Social History Tobacco Use Types Packs/Day Years [...] st Contact Info) Description 12/04/2024 Procedure Pass [facility] Echo Lab 30 [place] [address] 01/01/2025 9:30 AM EDT Appointment [facility] 30 [place] [address] Pooja Elam MD [address] [place] [address] 01/08/2025 9:00 AM EDT Nurse Only [facility] Primary Care 15 [facility] 201 [place] [address] Sivan Montgomery MD, MPH 15 [facility] 201 [place] [address] 04/01/2025 8:00 AM EST Office Visit [facility] Rheumatology [address] [place] [address] Alma Delia Castro MD 22 [facility] 203 [place] [address] [email or web address] 05/15/2025 1:20 PM EST Office Visit [facility] [address] 3rd Floor, [address] [place] [address] Juan Burns MD 22 [facility], [address] [place] [address] 05/26/2025 8:00 AM EST Office Visit [facility] Primary Care [address] [facility] [address] [place] [address] Pooja Elam MD 15 [facility] [address] [place] [address] 06/08/2025 9:00 AM EST Office Visit [facility] 22 [place] [address] Santa Lewis MD 22 [facility], 1st [place] [address] 06/15/2025 9:00 AM EST Office Visit [facility] [address] [facility] 3rd Floor, [address] [place] [address] Anup Ward MD, MS 22 [facility], [address] [place] [address] 11/24/2025 9:00 AM EDT Office Visit [facility] Primary Care [address] [facility] [address] [place] [address] Pooja Elam MD 15 [facility]. [address] [place] [address] documented as of this encounter Visit Diagnoses Not on filedocumented in this encounter Additional Health Concerns Assessment Noted Time PHQ-2 Depression Total Score: 0 09/24/19 19 9:43 AM EDT documented as of this encounter Care Teams Vacuum Worker Relationship Specialty Start Date End Date Sivan Montgomery MD, MPH 15 [facility] [address] [place] [address] [email or web address] PCP - General Family Medicine 08/20/20 Ruy Darling MD [address] [place] [address] [email or web address] Historical LMR Provider 01/30/17 12/23/23 Adin Becerra MD [email or web address] Historical LMR Provider 01/30/17 02/19/22 Kathleen Lopez MD 22 [facility] 102 [place] [address] [email or web address] Historical LMR Provider 01/30/17 Weston Hamilton DO [address] [place] [address] Historical LMR Provider 01/30/1702/19 Santa Lewis MD 22 [facility], 1st [place] [address] [email or web address] Endocrinology 10/26/20 Alma Delia Castro MD [address] [facility], [address] [place] [address] [email or web address] Rheumatology 02/20/22 Archie Ramos MD [address] [place] [address] 203 [place] [address] Orthopedic Surgery 12/24/23 Sung Jane MD [address] [place] [address] 150 [place] [address] Neurology 12/24/23 José Hernández MD [address] [place] [address] [address] [place] [address] Neurosurgery 12/24/23 Ruy Darling MD [address] [place] [address] [email or web address] Intensive Care 12/24/23 documented as of this encounter Additional Source Comments The information contained in this document represents components of the legal health record. It is not the complete legal health record.[facility]
--- OUTSIDE RECORDS SUMMARY | 2024-12-09 07:41 | XMS_ITS | Encounter Summary ---
Author Organization [facility] Address [address] [facility] [address] [place] [address] Phone Care Team Providers Care Printed Circuit Board Panels Plater Name Role Phone Kathleen Lopez MD Unavailable Sivan Montgomery MD, MPH Primary Care Provid er Santa Lewis MD Unavailable [phone] Alma Delia Castro MD Unavailable Archie Ramos MD Unavailable Sung Jane MD Unavai lable José Hernández MD Unavailable [phone] Ruy Darling MD Unavailable [phone] Reason for Referral * MRI/CAT Scan - Closed Specialty Diagnoses / Procedures Referred By Letitia t Referred To Contact Radiology Procedures Outside CT Abd/pelvis Report Only Michelle, MD Michelle Referral ID Status Reason Start Date Expiration Date Visits Re quested Visits Authorized [id number] Closed 11/21/2024 1 1 Encounter Details Date Type Department Care Team (Late st Contact Info) Description 11/21/2024 Orders Only [facility] [address] [place] [address] Unknown, Unknown, Social History Tobacco Use Types Packs/Day Years [...] 12/04/2024 Procedure Pass [facility] 30 [place] [address] 01/01/2025 9:30 AM EDT Appointment [facility] 30 [place] [address] Pooja Elam MD [address] [address] 01/08/2025 9:00 AM EDT Nurse Only [facility] Primary Care 15 [facility] 201 [place] [address] Sivan Montgomery MD, MPH 15 [facility] 201 [place] [address] 04/01/2025 8:00 AM EST Office Visit [facility] Rheumatology [address] [place] [address] Alma Delia Castro MD 22 [facility], [address] [place] [address] [email or web address] 05/15/2025 1:20 PM EST Office Visit [facility] [address] 3rd Floor, [address] [place] [address] Juan Burns MD 22 [facility], [address] [place] [address] 05/26/2025 8:00 AM EST Office Visit [facility] Primary Care [address] [place] [address] Pooja Elam MD 15 [facility]. [address] [place] [address] 06/08/2025 9:00 AM EST Office Visit [facility] [address] [place] [address] Santa Lewis MD 22 [facility], 1st [place] [address] 06/15/2025 9:00 AM EST Office Visit [facility] 22 [facility] 3rd Floor, [address] [place] [address] Anup Ward MD, MS 22 [facility], [address] [place] [address] 11/24/2025 9:00 AM EDT Office Visit [facility] Primary Care [address] [place] [address] Pooja Elam MD [address] [address] documented as of this encounter Procedures Procedure Name Priority Date/Time Associated Diagnosis Comments OUTSIDE US IMAGING REPORT ONLY Routine 11/21/2024 3:[address] ABD/PELVIS REPORT ONLY Routine 11/20/2024 8:07 AM EDT documented in this encounter Results * Outside US Imaging??Report Only (11/21/2024 3:20 PM EDT) us Unknown Unknown MD PARKINSON US OP Final Result * Outside CT Abd/pelvis Report Only (11/20/2024 8:07 AM EDT) us Unknown Unknown IMAna CT ABD/PELVIS Final Resul t documented in this encounter Visit Diagnoses Not on filedocumented in this encounter Additional Health Concerns Assessment Noted Time PHQ-2 Depression Total Score: 0 11/21/19 24 9:11 AM EDT documented as of this encounter Care Teams Printed Circuit Board Panels Plater Relationship Specialty Start Date End Date Sivan Montgomery MD, MPH 15 [facility] [address] [place] [address] [email or web address] PCP - General Family Medicine 08/20/20 Kathleen Lopez MD 22 [facility], [address] [place] [address] Historical LMR Provider 01/30/17 Santa Lewis MD 22 [facility], 1st [place] [address] Endocrinology 10/26/20 Alma Delia Castro MD 22 [facility], [address] [place] [address] Rheumatology 02/20/22 Archie Ramos MD [address] [place] [address] 203 [place] [address] Orthopedic Surgery 12/24/23 Sung Jane MD [address] [place] [address] 150 [place] [address] Neurology 12/24/23 José Hernández MD [address] [place] [address] [address] [place] [address] Neurosurgery 12/24/23 Ruy Darling MD [address] [place] [address] [email or web address] Intensive Care 12/24/23 documented as of this encounter Additional Source Comments The information contained in this document represents components of the legal health record. It is not the complete legal health record.[facility]
--- OUTSIDE RECORDS SUMMARY | 2024-12-09 07:41 | XMS_ITS | Encounter Summary ---
Author Organization [facility] Address [address] [facility] [address] [place] [address] Phone Care Team Providers Care Masonry Contractor Name Role Phone Kathleen Lopez MD Unavailable Sivna Montgomery MD, MPH Primary Care Provid er Santa Lewis MD Unavailable [phone] Alma Delia Castro MD Unavailable [phone] Archie Ramos MD Unavailable Sung Jane MD Unavai lable José Hernández MD Unavailable Ruy Darling MD Unavailable [phone] Encounter Details Date Type Department Care Team (Late st Contact Info) Description 11/17/2024 Telephone [employer] [facility] [address] [place], [place] [phone] Santa Lewis MD 22 [facility], 1st [place] [address] Social History Tobacco Use Types Packs/Day Years [...] as of this encounter Progress Notes * Santa Lewis MD - 12/06/2024 10:06 PM EDT Has this order been sent to supplier? Pt would like Mely 3+ if covered. * Lindsay Maldonado CMA - 11/20/2024 3:55 PM EDT Pt is already getting the 2 + sensor did you still want to change her to the mely 3+? * Santa Lewis MD - 11/17/2024 9:46 AM EDT Please contact [employer] to change rx for CGM to Mely 3+ if able to get new Mely 3 reader, if not then will need to change to Mely 2+ documented in this encounter Plan of Treatment Upcoming Encounters Date Type Department Care Team (Late st Contact Info) Description 12/04/2024 Procedure Pass [facility] 30 [place] [address] 01/01/2025 9:30 AM EDT Appointment [facility] 30 [place] [address] Pooja Elam MD [address] [place] [address] 01/08/2025 9:00 AM EDT Nurse Only [facility] [address] [facility] [address] [place] [address] Sivan Montgmoery MD, MPH [address] [facility]. 201 [place] [address] 04/01/2025 8:00 AM EST Office Visit [facility] Rheumat[facility] [address] [place] [address] Alma Delia Castro MD [address] [facility], [address] [place] [address] [email or web address] 05/15/2025 1:20 PM EST Office Visit [facility] [address] [facility] 3rd Floor, [address] [place] [address] Juan Burns MD [address] [place] [address], [address] [place] [address] 05/26/2025 8:00 AM EST Office Visit [facility] [address] [facility] 201 [place] [address] Pooja Elam MD [address] [address] 06/08/2025 9:00 AM EST Office Visit [facility] 22 [place] [address] Santa Lewis MD [address] [facility], 1st [place] [address] 06/15/2025 9:00 AM EST Office Visit [facility] [address] [facility] 3rd Floor, [address] [place] [address] Anup Ward MD, MS [address] [facility], [address] [place] [address] 11/24/2025 9:00 AM EDT Office Visit [facility] [address] [facility] [address] [place] [address] Pooja Elam MD 15 [facility] [address] [place] [address] documented as of this encounter Visit Diagnoses Not on filedocumented in this encounter Additional Health Concerns Assessment Noted Time PHQ-2 Depression Total Score: 0 11/21/19 24 9:11 AM EDT documented as of this encounter Care Teams Masonry Contractor Relationship Specialty Start Date End Date Sivan Montgomery MD, MPH [address] [facility] [address] [place] [address] PCP - General Family Medicine 08/20/20 Kathleen Lopez MD [address] [facility], [address] [place] [address] Historical LMR Provider 01/30/17 Santa Lewis MD [address] [facility], 1st [place] [address] Endocrinology 10/26/20 Alma Delia Castro MD [address] [facility], [address] [place] [address] Rheumatology 02/20/22 Archie Ramos MD [address] [place] [address] [address] [place] [address] Orthopedic Surgery 12/24/23 Sung Jane MD [address] [place] [address] Neurology 12/24/23 José Hernández MD [address] [place] [address] [address] [place] [address] Neurosurgery 12/24/23 Ruy Darling MD [address] [place] [address] [email or web address] Intensive Care 12/24/23 documented as of this encounter Additional Source Comments The information contained in this document represents components of the legal health record. It is not the complete legal health record.[facility]
--- OUTSIDE RECORDS SUMMARY | 2024-12-09 07:42 | XMS_ITS | Encounter Summary ---
Author Organization [facility] Address [address] [facility] [address] [place] [address] Phone Care Team Providers Care Nursery Teacher Name Role Phone Weston Hamilton DO Primary Care Provider Ruy Darling MD Unavailable [phone] Adin Becerra MD Unavailable [email or web address] Kathleen Lopez MD Unavailable Weston Hamilton DO Unavailable [phone] Dionne Latif MD Unavailable Shelby Keenan DO Primary Care Provider [phone] Sivan Montgomery MD, MPH Primary Care Provid er Santa Lewis MD Unavailable [phone] Alma Delia Castro MD Unavailable Archie Ramos MD Unavailable [phone] Sung Jane MD Unavailable José Hernández MD Unavailable Ruy Darling MD Unavailable [phone] Encounter Details Date Type Department Care Team (Late st Contact Info) Description 05/13/2018 Procedure Pass [facility] 30 [place] [address] Social History Tobacco Use Types Packs/Day Years [...] 12/04/2024 Procedure Pass [facility] 30 [place] [address] 01/01/2025 9:30 AM EDT Appointment [facility] 30 [place] [address] Pooja Elam MD [address] [address] 01/08/2025 9:00 AM EDT Nurse Only [facility] [address] [facility] 201 [place] [address] Sivan Montgomery MD, MPH 15 [facility] 201 [place] [address] 04/01/2025 8:00 AM EST Office Visit [facility] [address] [place] [address] Alma Delia Castro MD 22 [facility] 203 [place] [address] [email or web address] 05/15/2025 1:20 PM EST Office Visit [facility] 22 [facility] 3rd Floor, [address] [place] [address] Juan Burns MD 22 [facility], [address] [place] [address] 05/26/2025 8:00 AM EST Office Visit [facility] [address] [facility] 201 [place] [address] Pooja Elam MD 15 [facility]. [address] [place] [address] 06/08/2025 9:00 AM EST Office Visit [facility] 22 [place] [address] Santa Lewis MD 22 [facility], 1st [place] [address] 06/15/2025 9:00 AM EST Office Visit [facility] 22 [facility] 3rd Floor, [address] [place] [address] Anup Ward MD, MS 22 [facility], [address] [address] 11/24/2025 9:00 AM EDT Office Visit [facility] [address] [facility] [address] [place] [address] Pooja Elam MD [address] [address] documented as of this encounter Visit Diagnoses Not on filedocumented in this encounter Care Teams Nursery Teacher Relationship Specialty Start Date End Date Weston Hamilton DO PCP - General 10/14/13 07/10/18 Shelby Keenan DO [address] [place] [address] [email or web address] PCP - General Family Medicine 07/11/18 08/19/20 Sivan Montgomery MD, MPH [address] [place] [address] [email or web address] PCP - General Family Medicine 08/20/20 Ruy Darling MD [address] [place] [address] [email or web address] Historical LMR Provider 01/30/17 12/23/23 Adin Becerra MD [email or web address] Historical LMR Provider 01/30/17 02/19/22 Kathleen Lopez MD [address] [place] [address] [email or web address] Historical LMR Provider 01/30/17 Weston Hamilton DO [address] [place] [address] Historical LMR Provider 01/30/1702/19 [place] [address] [email or web address] Historical LMR Provider 01/30/17 10/24/20 Santa Lewis MD [address] [place] [address], [address] [place] [address] Endocrinology 10/26/20 Alma Delia Castro MD 22 [facility], [address] [place] [address] Rheumatology 02/20/22 Archie Ramos MD [address] [place] [address] [address] [place] [address] Orthopedic Surgery 12/24/23 Sung Jane MD [address] [place] [address] Neurology 12/24/23 José Hernández MD [address] [place] [address] [address] [place] [address] Neurosurgery 12/24/23 Ruy Darling MD [address] [place] [address] [email or web address] Intensive Care 12/24/23 documented as of this encounter Additional Source Comments The information contained in this document represents components of the legal health record. It is not the complete legal health record.[facility]
--- OUTSIDE RECORDS SUMMARY | 2024-12-09 07:42 | XMS_ITS | Encounter Summary ---
Author Organization [facility] Address [address] [facility] [address] [place] [address] Phone Care Team Providers Care Production Quality Manager Name Role Phone Ruy Darling MD Unavailable [phone] Adin Becerra MD Unavailable [email or web address] Kathleen Lopez MD Unavailable Weston Hamilton DO Unavailable [phone] Dionne Latif MD Unavailable Shelby Keenan DO Primary Care Provider [phone] Sivan Montgomery MD, MPH Primary Care Provid er Santa Lewis MD Unavailable [phone] Alma Delia Castro MD Unavailable Archie Ramos MD Unavailable Sung Jane MD Unavailable José Hernández MD Unavailable Ruy Darling MD Unavailable [phone] Encounter Details Date Type Department Care Team (Latest Contact Info) Description 09/03/2018 Transcribe Orders [facility] [address] [id number] Bridger Max MD [address] [place] [address] [email or web address] Abdominal pain, unspecified abdominal location (Primary Dx) Social History Tobacco Use Types [...] 12/04/2024 Procedure Pass [facility] 30 [place] [address] 01/01/2025 9:30 AM EDT Appointment [facility] 30 [place] [address] Pooja Elam MD [address] [address] [email or web address] 01/08/2025 9:00 AM EDT Nurse Only [facility] 15 [facility] 201 [place] [address] Sivan Montgomery MD, MPH [address] [address] [email or web address] 04/01/2025 8:00 AM EST Office Visit [facility] [address] [place] [address] Alma Delia Castro MD 22 [facility] 203 [place] [address] [email or web address] 05/15/2025 1:20 PM EST Office Visit [facility] [address] 3rd Floor, [address] [place] [address] Juan Burns MD 22 [facility], [address] [place] [address] 05/26/2025 8:00 AM EST Office Visit [facility] 15 [facility] [address] [place] [address] Pooja Elam MD [address] [address] 06/08/2025 9:00 AM EST Office Visit [facility] 22 [place] [address] Santa Lewis MD 22 [facility], 1st [place] [address] 06/15/2025 9:00 AM EST Office Visit [facility] 22 [facility] 3rd Floor, [address] [place] [address] Anup Ward MD, MS 22 [facility], [address] [place] [address] 11/24/2025 9:00 AM EDT Office Visit [facility] [address] [address] Pooja Elam MD [address] [address] documented as of this encounter Results * (ABNORMAL) GGT (Gamma glutamyl transferase) (09/03/2018 1:37 PM EDT) GGT 287(H) 7 - 33 U/L [facility] Blood 09/03/2018 1:37 PM EDT 09/03/2018 1:41 PM EDT us Bridger Max MD LAB BLOOD ORDERABLES Final Resul t Performing Organization Address [facility]/ZIP Co de Phone Number [address] [address] * (ABNORMAL) Ferritin (09/03/2018 1:37 PM EDT) FERRITIN 616(H) 13 - 150 ug/L [facility] Blood 09/03/2018 1:37 PM EDT 09/03/2018 1:41 PM EDT us Bridger Max MD LAB BLOOD ORDERABLES Final Resul t Performing Organization Address [facility] Co de Phone Number [address] [address] * Iron and iron binding capacity (09/03/2018 1:37 PM EDT) IRON 125 30 - 160 ug/dL [facility] IRON BINDING CAPACITY 279 228 - 428 ug/dL [facility] TRANSFERRIN SATURAT. 45 15 - 50 % [facility] Blood 09/03/2018 1:37 PM EDT 09/03/2018 1:41 PM EDT us Bridger Max MD LAB BLOOD ORDERABLES Final Resul t Performing Organization Address [facility] Co de Phone Number [address] [address] * (ABNORMAL) LFTs (hepatic panel) (09/03/2018 1:37 PM EDT) ALKALINE PHOSPHATASE 152(H) 39 - 117 U/L [facility] TOTAL BILIRUBIN 0.4 0.0 - 1.2 mg/dL [facility] DIRECT BILIRUBIN <0.2 0 - 0.3 mg/dL [facility] Bilirubin (Indirect) NOT CALCULATED 0 - 1.5 mg/dL [facility] AST 143(H) 0 - 37 U/L [facility] ALT 243(H) 0 - 40 U/L [facility] TOTAL PROTEIN 7.6 6.5 - 8.0 g/dL [facility] ALBUMIN 4.3 3.9 - 4.8 g/dL [facility] GLOBULIN 3.3 1 - 4.8 g/dL [facility] A/G Ratio 1.30 1.00 - 4.80 RATIO [facility] Blood 09/03/2018 1:37 PM EDT 09/03/2018 1:41 PM EDT us Bridger Max MD LAB BLOOD ORDERABLES Final Resul t Performing Organization Address City/State/[facility] Co de Phone Number [address] [address] documented in this encounter Visit Diagnoses Diagnosis Abdominal pain, unspecified abdominal location- Primary documented in this encounter Care Teams Production Quality Manager Relationship Specialty Start Date End Date Shelby Keenan DO [address] [place] [address] [email or web address] PCP - General Family Medicine 07/11/18 08/19/20 Sivan Montgomery MD, MPH [address] [place] [address] [email or web address] PCP - General Family Medicine 08/20/20 Ruy Darling MD [address] [place] [address] [email or web address] Historical LMR Provider 01/30/17 12/23/23 Adin Becerra MD [email or web address] Historical LMR Provider 01/30/17 02/19/22 Kathleen Lopez MD [address] [facility], [address] [place] [address] Historical LMR Provider 01/30/17 Weston Hamilton DO [address] [place] [address] 201 [place] [address] Historical LMR Provider 01/30/1702/19 [place] [address] [email or web address] Historical LMR Provider 01/30/17 10/24/20 Santa Lewis MD [address] [place] [address], 1st [place] [address] Endocrinology 10/26/20 Alma Delia Castro MD [address] [place] [address], [address] [place] [address] Rheumatology 02/20/22 Archie Ramos MD [address] [place] [address] [address] [place] [address] Orthopedic Surgery 12/24/23 Sung Jane MD [address] [place] [address] 150 [place] [address] Neurology 12/24/23 José Hernández MD [address] [place] [address] [address] [place] [address] Neurosurgery 12/24/23 Ruy Darling MD [address] [place] [address] [email or web address] Intensive Care 12/24/23 documented as of this encounter Additional Source Comments The information contained in this document represents components of the legal health record. It is not the complete legal health record.[facility]
--- OUTSIDE RECORDS SUMMARY | 2024-12-09 07:42 | XMS_ITS | Encounter Summary ---
Author Organization [facility] Address [address] [place] [address] Phone Care Team Providers Care Boat Joiner Helper Name Role Phone Melissa Darling MD Unavailable [phone] Adin Becerra MD Unavailable [email or web address] Kathleen Lopez MD Unavailable Weston Hamilton DO Unavailable [phone] Dionne Latif MD Unavailable [phone] Shelby Keenan DO Primary Care Provider [phone] Sivan Montgomery MD, MPH Primary Care Provid er Santa Lewis MD Unavailable [phone] Alma Delia Castro MD Unavailable Archie Ramos MD Unavailable [phone] Sung Jane MD Unavailable José Hernández MD Unavailable Melissa Darling MD Unavailable [phone] Reason for Referral * MRI/CAT Scan - Closed Specialty Diagnoses / Procedures Referred By Contac t Referred To Contact Radiology Diagnoses Lumbar radiculopathy Procedures MRI Lumbar Spine MRI Lumbar Spine Renard James DO Phone: tel: fax: [email or web address] Referral ID Status Reason Start Date Expiration Date Visits Re quested Visits Authorized [id number] Closed 09/05/2018 09/05/2019 1 1 Encounter Details Date Type Department Care Team (Latest Contact Info) Description 09/16/2018 Ancillary Orders Virtual Department [address] [place] [address] Renard James DO [address] [place] [address] [email or web address] Lumbar radiculopathy Social History Tobacco Use Types Packs/Day Years [...] 12/04/2024 Procedure Pass [facility] [address] [place] [address] 01/01/2025 9:30 AM EDT Appointment [facility] [address] [place] [address] Pooja Elam MD [address] [facility] [address] [place] [address] 01/08/2025 9:00 AM EDT Nurse Only Kera Dowling [facility] [address] [facility] [address] [place] [address] Sivan Montgomery MD, MPH [address] [facility] [address] [place] [address] 04/01/2025 8:00 AM EST Office Visit [facility] Rheumatology [address] [place] [address] Alma Delia Castro MD [address] [facility], [address] [place] [address] [email or web address] 05/15/2025 1:20 PM EST Office Visit [facility] [address] 3rd Floor, [address] [place] [address] Juan Burns MD [address] [facility], [address] [address] 05/26/2025 8:00 AM EST Office Visit [facility] [address] [facility] [address] [place] [address] Pooja Elam MD [address] [address] 06/08/2025 9:00 AM EST Office Visit [facility] Diabetes Center [address] [place] [address] Santa Lewis MD [address] [facility], 1st [place] [address] 06/15/2025 9:00 AM EST Office Visit [facility] [address] 3rd Floor, [address] [place] [address] Anup Ward MD, MS [address] [facility], [address] [place] [address] 11/24/2025 9:00 AM EDT Office Visit [facility] [address] [facility] [address] [place] [address] Pooja Elam MD [address] [facility] [address] [place] [address] [email or web address] documented as of this encounter Results * MRI LUMBAR SPINE (NEURO) WITH AND WITHOUT CONTRAST (09/20/2018 8:25 AM EDT) Anatomical Region Laterality Modality L-spine Magnetic Resonan ce 09/20/2018 10:0 3 AM EDT Impressions 09/20/2018 10:24 AM EDT Left foraminal disc bulge versus small protrusion at the L1-2 level with a minimal amount of surrounding soft tissue enhancement. This could be correlated with any associated clinical findings of radiculopathy. Marrow enhancement surrounding probable early Schmorl's node formation the upper L2 endplate. No findings of epidural abscess or other significant interval change from 02/15/2017 apparent. POS - [id number] Narrative 09/20/2018 10:24 AM EDT TECHNIQUE: Exam performed on a 1.5 Sharon high-field MRI scanner. Sagittal T1, T2 and STIR, axial T1 and T2 sequences were obtained, followed by post-gadolinium sagittal T1 and axial T1 sequences. FINDINGS: Comparison is made with prior MR of 02/15/2017. T11-T12: There is equivocal minimal progressive right paramedian spondylosis and disc bulge. No acute disc protrusion or central canal stenosis identified. Neural foramina grossly patent. T12-L1: On the sagittal sequences no acute disc protrusion or central canal stenosis suggested. Neural foramina are grossly patent. Minimal disc bulge. L1-2: Chronic disc desiccation with minimal progression of disc space narrowing. There appears to be a new left foraminal disc bulge versus small protrusion and adjacent soft tissue enhancement. No central canal stenosis or significant right neural foraminal narrowing. L2-L3: No acute disc protrusion, central canal stenosis, or significant neural foraminal compromise. L3-L4: Minimal chronic disc bulge without acute disc protrusion or central canal stenosis. Moderate degenerative facet arthropathy. Neural foramina are overall patent. Minimal chronic and stable spondylolisthesis. L4-L5: There is a chronic and grossly stable anterolisthesis of the L4 vertebral body uncovering the roof of the intervening disc which does not extend significantly dorsal to the L5 corner to imply acute protrusion. There is chronic right greater than left neural foraminal stenosis due to the spondylolisthesis and minimal disc bulge but without overt mass effect upon the exiting L4 nerve roots. L5-S1: There is a chronic stable small posterior central disc bulge indenting the ventral margin of the thecal sac. No central canal or significant neural foraminal stenosis identified. There is marrow edema and enhancement in the anterior superior corner of the L2 vertebral body which may be related to early Schmorl's node formation. Fatty signal changes in the upper portion of the L1 vertebral body are consistent with chronic hemangioma versus lipoma. Similar scattered fatty marrow signal changes are evident without other zones of worrisome contrast enhancement detected. No specific findings of epidural abscess at any of the visualized levels. No paraspinal soft tissue mass identified. Procedure Note Melissa Liang MD - 09/20/2018 TECHNIQUE: Exam performed on a 1.5 Sharon high-field MRI scanner. SagittalT1, T2 and STIR, axial T1 and T2 sequences were obtained, followed bypost-gadolinium sagittal T1 and axial T1 sequences. FINDINGS: Comparison is made with prior MR of 02/15/2017. T11-T12: There is equivocal minimal progressive right paramedianspondylosis and disc bulge. No acute disc protrusion or central canalstenosis identified. Neural foramina grossly patent. T12-L1: On the sagittal sequences no acute disc protrusion or centralcanal stenosis suggested. Neural foramina are grossly patent. Minimaldisc bulge. L1-2: Chronic disc desiccation with minimal progression of disc spacenarrowing. There appears to be a new left foraminal disc bulge versussmall protrusion and adjacent soft tissue enhancement. No central canalstenosis or significant right neural foraminal narrowing. L2-L3: No acute disc protrusion, central canal stenosis, or significantneural foraminal compromise. L3-L4: Minimal chronic disc bulge without acute disc protrusion or centralcanal stenosis. Moderate degenerative facet arthropathy. Neural foraminaare overall patent. Minimal chronic and stable spondylolisthesis. L4-L5: There is a chronic and grossly stable anterolisthesis of the O2jcpmbrpip body uncovering the roof of the intervening disc which does notextend significantly dorsal to the L5 corner to imply acute protrusion.There is chronic right greater than left neural foraminal stenosis due tothe spondylolisthesis and minimal disc bulge but without overt mass effectupon the exiting L4 nerve roots. L5-S1: There is a chronic stable small posterior central disc bulgeindenting the ventral margin of the thecal sac. No central canal orsignificant neural foraminal stenosis identified. There is marrow edema and enhancement in the anterior superior corner ofthe L2 vertebral body which may be related to early Schmorl's nodeformation. Fatty signal changes in the upper portion of the L1 vertebralbody are consistent with chronic hemangioma versus lipoma. Similarscattered fatty marrow signal changes are evident without other zones ofworrisome contrast enhancement detected. No specific findings of epiduralabscess at any of the visualized levels. No paraspinal soft tissue massidentified. IMPRESSION: Left foraminal disc bulge versus small protrusion at the L1-2 level with aminimal amount of surrounding soft tissue enhancement. This could becorrelated with any associated clinical findings of radiculopathy. Marrow enhancement surrounding probable early Schmorl's node formation theupper L2 endplate. No findings of epidural abscess or other significantinterval change from 02/15/2017 apparent. POS - [id number] Renard James DO IMG MR XSPECIALTY Final Resu lt documented in this encounter Visit Diagnoses Diagnosis Lumbar radiculopathy Thoracic or lumbosacral neuritis or radiculitis, unspecified Lumbar radiculopathy Thoracic or lumbosacral neuritis or radiculitis, unspecified documented in this encounter Care Teams Boat Joiner Helper Relationship Specialty Start Date End Date Shelby Keenan DO [address] [place] [address] [email or web address] PCP - General Family Medicine 07/11/18 08/19/20 Sivan Montgomery MD, MPH [address] [place] [address] [email or web address] PCP - General Family Medicine 08/20/20 Meilssa Darling MD [address] [place] [address] [email or web address] Historical LMR Provider 01/30/17 12/23/23 Adin Becerra MD [email or web address] Historical LMR Provider 01/30/17 02/19/22 Kathleen Lopez MD [address] [place] [address] [email or web address] Historical LMR Provider 01/30/17 Weston Hamilton DO [address] [place] [address] Historical LMR Provider 01/30/1702/19 [place] [address] [email or web address] Historical LMR Provider 01/30/17 10/24/20 Santa Lewis MD [address] [place] [address] [email or web address] Endocrinology 10/26/20 Alma Delia Castro MD [address] [place] [address] 203 [place] [address] Rheumatology 02/20/22 Archie Ramos MD [address] [place] [address] [address] [place] [address] Orthopedic Surgery 12/24/23 Sung Jane MD [address] [place] [address] Neurology 12/24/23 José Hernández MD [address] [place] [address] [address] [place] [address] Neurosurgery 12/24/23 Melissa Darling MD [address] [place] [address] [email or web address] Intensive Care 12/24/23 documented as of this encounter Additional Source Comments The information contained in this document represents components of the legal health record. It is not the complete legal health record.[facility]
--- OUTSIDE RECORDS SUMMARY | 2024-12-09 07:42 | XMS_ITS | Encounter Summary ---
Author Organization [facility] Address [address] [facility] [address] [place] [address] Phone Care Team Providers Care Riprap Placing Supervisor Name Role Phone Ruy Darling MD Unavailable [phone] Adin Becerra MD Unavailable [email or web address] Kathleen Lopez MD Unavailable Weston Hamilton DO Unavailable [phone] Dionne Latif MD Unavailable Shelby Keenan DO Primary Care Provider [phone] Sivan Montgomery MD, MPH Primary Care Provid er Santa Lewis MD Unavailable [phone] Alma Delia Castro MD Unavailable Archie Ramos MD Unavailable Sung Jane MD Unavailable José Hernández MD Unavailable Ruy Darling MD Unavailable [phone] Encounter Details Date Type Department Care Team (Latest Contact Info) Description 09/05/2018 Ancillary Orders Virtual Department 30 [place] [address] Ruy Santoyo, DO [address] [place] [address] Lumbar radiculopathy Social History Tobacco Use Types [...] Contact Info) Description 12/04/2024 Procedure Pass [facility] Echo Lab 30 [place] [address] 01/01/2025 9:30 AM EDT Appointment [facility] Echo Lab [address] [place] [address] Pooja Elam MD [address] [address] [email or web address] 01/08/2025 9:00 AM EDT Nurse Only [facility] 15 [facility] [address] [place] [address] Sivan Montgomery MD, MPH [address] [address] [email or web address] 04/01/2025 8:00 AM EST Office Visit [facility] Rheumatology [address] [place] [address] Alma Delia Castro MD 22 [facility], [facility] [address] [place] [address] [email or web address] 05/15/2025 1:20 PM EST Office Visit [facility] [address] 3[address] Floor, [address] [place] [address] Juan Burns MD 22 [facility], [address] [place] [address] 05/26/2025 8:00 AM EST Office Visit [facility] Primary Care [address] [facility] [address] [place] [address] Pooja Elam MD 15 [facility]. [address] [place] [address] 06/08/2025 9:00 AM EST Office Visit [facility] Center [address] [place] [address] Santa Lewis MD 22 [facility], 1st [place] [address] 06/15/2025 9:00 AM EST Office Visit [facility] [address] [facility] 3rd Floor, [address] [place] [address] Anup Ward MD, MS 22 [facility], [address] [place] [address] 11/24/2025 9:00 AM EDT Office Visit [facility] Primary Care [address] [facility] [address] [place] [address] Pooja Elam MD [address] [address] documented as of this encounter Visit Diagnoses Diagnosis Lumbar radiculopathy Thoracic or lumbosacral neuritis or radiculitis, unspecified documented in this encounter Care Teams Riprap Placing Supervisor Relationship Specialty Start Date End Date Shelby Keenan DO [address] [place] [address] [email or web address] PCP - General Family Medicine 07/11/18 08/19/20 Sivan Montgomery MD, MPH [address] [place] [address] [email or web address] PCP - General Family Medicine 08/20/20 Ruy Darling MD [address] [place] [address] [email or web address] Historical LMR Provider 01/30/17 12/23/23 Adin Becerra MD [email or web address] Historical LMR Provider 01/30/17 02/19/22 Kathleen Lopez MD [address] [place] [address] [email or web address] Historical LMR Provider 01/30/17 Weston Hamilton DO [address] [place] [address] Historical LMR Provider 01/30/1702/19 [place] [address] [email or web address] Historical LMR Provider 01/30/17 10/24/20 Santa Lewis MD [address] [place] [address], [address] [place] [address] Endocrinology 10/26/20 Alma Delia Castro MD 22 [facility], [address] [place] [address] Rheumatology 02/20/22 Archie Ramos MD [address] [place] [address] [address] [place] [address] Orthopedic Surgery 12/24/23 Sung Jane MD [address] [place] [address] Neurology 12/24/23 José Hernández MD [address] [place] [address] [address] [place] [address] Neurosurgery 12/24/23 Ruy Darling MD [address] [place] [address] Intensive Care 12/24/23 documented as of this encounter Additional Source Comments The information contained in this document represents components of the legal health record. It is not the complete legal health record.[facility]
--- OUTSIDE RECORDS SUMMARY | 2024-12-09 07:42 | XMS_ITS | Encounter Summary ---
Author Organization [facility] Address [address] [facility] [address] [place] [address] Phone Care Team Providers Care Manager Of International Name Role Phone Ruy Darling MD Unavailable [phone] Adin Becerra MD Unavailable [email or web address] Kathleen Lopez MD Unavailable Weston Hamilton DO Unavailable [phone] Dionne Latif MD Unavailable [phone] Shelby Keenan DO Primary Care Provider [phone] Sivan Montgomery MD, MPH Primary Care Provid er Santa Lewis MD Unavailable [phone] Alma Delia Castro MD Unavailable Archie Ramos MD Unavailable Sung Jane MD Unavailable José Hernández MD Unavailable Ruy Darling MD Unavailable [phone] Encounter Details Date Type Department Care Team (Late st Contact Info) Description 09/05/2018 Procedure Pass [facility], [address] [address] Social History Tobacco Use Types Packs/Day Years [...] 12/04/2024 Procedure Pass [facility] 30 [place] [address] 01/01/2025 9:30 AM EDT Appointment [facility] [address] [place] [address] Pooja Elam MD [address] [address] 01/08/2025 9:00 AM EDT Nurse Only [facility] [address] [facility] [address] [place] [address] Sivan Mnotgomery MD, MPH 15 [facility] 201 [place] [address] 04/01/2025 8:00 AM EST Office Visit [facility] Rheumatology [address] [place] [address] Alma Delia Castro MD 22 [facility], [facility] 203 [place] [address] [email or web address] 05/15/2025 1:20 PM EST Office Visit [facility] [address] Floor, [address] [place] [address] Juan Burns MD 22 [facility], [address] [address] 05/26/2025 8:00 AM EST Office Visit [facility] [address] [facility] [address] [place] [address] Pooja Elam MD [address] [address] 06/08/2025 9:00 AM EST Office Visit [facility] Center 22 [place] [address] Santa Lewis MD 22 [facility], 1st [place] [address] 06/15/2025 9:00 AM EST Office Visit [facility] 22 [facility] 3rd Floor, [address] [place] [address] Anup Ward MD, MS 22 [facility], [address] [address] 11/24/2025 9:00 AM EDT Office Visit [facility] Primary Care 15 [facility] [address] [place] [address] Pooja Elam MD [address] [address] documented as of this encounter Visit Diagnoses Not on filedocumented in this encounter Care Teams Manager Of International Relationship Specialty Start Date End Date Shelby Keenan DO [address] [place] [address] [email or web address] PCP - General Family Medicine 07/11/18 08/19/20 Sivan Montgomery MD, MPH [address] [place] [address] [address] [place] [address] [email or web address] PCP - General Family Medicine 08/20/20 Ruy Darling MD [address] [place] [address] [email or web address] Historical LMR Provider 01/30/17 12/23/23 Adin Becerra MD [email or web address] Historical LMR Provider 01/30/17 02/19/22 Kathleen Lopez MD [address] [place] [address] [email or web address] Historical LMR Provider 01/30/17 Weston Hamilton DO [address] [place] [address] Historical LMR Provider 01/30/1702/19 [place] [address] [email or web address] Historical LMR Provider 01/30/17 10/24/20 Santa Lewis MD [address] [place] [address], [address] [place] [address] [email or web address] Endocrinology 10/26/20 Alma Delia Castro MD [address] [place] [address] 203 [place] [address] Rheumatology 02/20/22 Archie Ramos MD [address] [place] [address] [address] [place] [address] Orthopedic Surgery 12/24/23 Sung Jane MD [address] [place] [address] Neurology 12/24/23 José Hernández MD [address] [place] [address] [address] [place] [address] Neurosurgery 12/24/23 Ruy Darling MD [address] [place] [address] [email or web address] Intensive Care 12/24/23 documented as of this encounter Additional Source Comments The information contained in this document represents components of the legal health record. It is not the complete legal health record.[facility]
--- OUTSIDE RECORDS SUMMARY | 2024-12-09 07:42 | XMS_ITS | Encounter Summary ---
Author Organization [facility] Address [address] [facility] [address] [place] [address] Phone Care Team Providers Care Transit Authority Police Officer Name Role Phone Ruy Darling MD Unavailable [phone] Adin Becerra MD Unavailable [email or web address] Kathleen Lopez MD Unavailable Weston Hamilton DO Unavailable [phone] Sivan Montgomery MD, MPH Primary Care Provid er Santa Lewis MD Unavailable [phone] Alma Delia Castro MD Unavailable Archie Ramos MD Unavailable Sung Jane MD Unavailable José Hernández MD Unavailable [phone] Ruy Darling MD Unavailable [phone] Encounter Details Date Type Department Care Team (Latest Contact Info) Description 01/19/2021 Transcribe Orders [facility] Laboratory [address] 2nd Floor [place], [place] [phone] Bridger Max MD [address] [facility] 2 [place], [place] [id number] Personal history of colonic polyps (Primary Dx); LOPEZ (nonalcoholic steatohepatitis) Social History Tobacco Use Types Packs/Day Years [...] 12/04/2024 Procedure Pass [facility] 30 [place] [address] 01/01/2025 9:30 AM EDT Appointment [facility] [address] [place] [address] Pooja Elam MD [address] [address] 01/08/2025 9:00 AM EDT Nurse Only [facility] 15 [facility] 201 [place] [address] Sivan Montgomery MD, MPH 15 [facility] 201 [place] [address] 04/01/2025 8:00 AM EST Office Visit [facility] Rheumatology [address] [place] [address] Alma Delia Castro MD 22 [facility] 203 [place] [address] [email or web address] 05/15/2025 1:20 PM EST Office Visit [facility] [address] [facility] 3rd Floor, [address] [place] [address] Juan Burns MD 22 [facility], [address] [place] [address] 05/26/2025 8:00 AM EST Office Visit [facility] Primary Care [address] [facility] [address] [place] [address] Pooja Elam MD 15 [facility] [address] [place] [address] 06/08/2025 9:00 AM EST Office Visit [facility] 22 [place] [address] Santa Lewis MD 22 [facility], 1st [place] [address] 06/15/2025 9:00 AM EST Office Visit [facility] [address] [facility] 3rd Floor, [address] [place] [address] Anup Ward MD, MS 22 [facility], [address] [place] [address] 11/24/2025 9:00 AM EDT Office Visit [facility] Primary Care [address] [facility] [address] [place] [address] Pooja Elam MD 15 [facility]. [address] [place] [address] documented as of this encounter Results * (ABNORMAL) LFTs (hepatic panel) (01/19/2021 9:47 AM EDT) ALKALINE PHOSPHATASE 127(H) 39 - 117 U/L [facility] TOTAL BILIRUBIN 0.4 0.0 - 1.2 mg/dL [facility] DIRECT BILIRUBIN <0.2 0 - 0.3 mg/dL [facility] Bilirubin (Indirect) NOT CALCULATED 0 - 1.5 mg/dL [facility] AST 36 0 - 37 U/L [facility] ALT 28 0 - 40 U/L [facility] TOTAL PROTEIN 7.7 6.5 - 8.0 g/dL [facility] ALBUMIN 4.7 3.9 - 4.8 g/dL [facility] GLOBULIN 3.0 1 - 4.8 g/dL [facility] A/G Ratio 1.57 1.00 - 4.80 RATIO [facility] Blood 01/19/2021 9:47 AM EDT 01/19/2021 9:50 AM EDT us Bridger Max MD LAB BLOOD ORDERABLES Final Resul t [facility] 30 [place] [address] documented in this encounter Visit Diagnoses Diagnosis Personal history of colonic polyps- Primary LOPEZ (nonalcoholic steatohepatitis) Other chronic nonalcoholic liver disease documented in this encounter Additional Health Concerns Assessment Noted Time PHQ-2 Depression Total Score: 0 09/24/19 19 9:43 AM EDT documented as of this encounter Care Teams Transit Authority Police Officer Relationship Specialty Start Date End Date Sivan Montgomery MD, MPH [address] [place] [address] [email or web address] PCP - General Family Medicine 08/20/20 Ruy Darling MD [address] [place] [address] [email or web address] Historical LMR Provider 01/30/17 12/23/23 Adin Becerra MD [email or web address] Historical LMR Provider 01/30/17 02/19/22 Kathleen Lopez MD 22 [facility] [address] [place] [address] Historical LMR Provider 01/30/17 Weston Hamilton DO [address] [place] [address] 201 [place] [address] Historical LMR Provider 01/30/1702/19 Santa Lewis MD 22 [facility], 1st [place] [address] Endocrinology 10/26/20 Alma Delia Castro MD [address] [place] [address] 203 [place] [address] Rheumatology 02/20/22 Archie Ramos MD [address] [place] [address] 203 [place] [address] Orthopedic Surgery 12/24/23 Sung Jane MD [address] [place] [address] Neurology 12/24/23 José Hernández MD [address] [place] [address] [address] [place] [address] Neurosurgery 12/24/23 Ruy Darling MD [address] [place] [address] Intensive Care 12/24/23 documented as of this encounter Additional Source Comments The information contained in this document represents components of the legal health record. It is not the complete legal health record.[facility]
--- OUTSIDE RECORDS SUMMARY | 2024-12-09 07:42 | XMS_ITS | Clinical Summary ---
Author Organization [facility] Address [address] [place] [address] Care Team Providers Care Electronic Specialist Name Role Phone Sivan Montgomery MD Primary [...] 67 08/29/2023 8:31 AM EDT Temperature 36.1 C (97 F) 08/29/2023 8:31 AM EDT Respiratory Rate 16 [...] 2023 07/26/2021, 07/06/2020, 06/10/2020 Influenza Vaccine (#1) 2024 , 01/31/2022, 01/08/2021, Additional history exists DTap [...] age to complete this topic Care Teams Electronic Specialist Relationship Specialty Start Date End Date Sivan Montgomery MD [address] [place] [address] Dr Hansen [facility] [place] [address] PCP - General Family Medicine 12/07/20
--- OUTSIDE RECORDS SUMMARY | 2024-12-09 07:43 | XMS_ITS | Encounter Summary ---
Author Organization [facility] Address [address] [facility] [address] [place] [address] Phone Care Team Providers Care Or Rn Name Role Phone Ruy Darling MD Unavailable [phone] Adin Becerra MD Unavailable [email or web address] Kathleen Lopez MD Unavailable Weston Hamilton DO Unavailable [phone] Dionne Latif MD Unavailable [phone] Shelby Keenan DO Primary Care Provider [phone] Sivan Montgomery MD, MPH Primary Care Provid er Santa Lewis MD Unavailable [phone] Alma Delia Castro MD Unavailable Archie Ramos MD Unavailable Sung Jane MD Unavailable José Hernández MD Unavailable Ruy Darling MD Unavailable [phone] Encounter Details Date Type Department Care Team (Latest Contact Info) Description 03/05/2019 Transcribe Orders [facility] 30 [place] [address] Taylor Beach MD [address] [place] [address] [email or web address] Essential hypertension Social History Tobacco Use Types Packs/Day Years [...] 12/04/2024 Procedure Pass [facility] 30 [place] [address] 01/01/2025 9:30 AM EDT Appointment [facility] [address] [place] [address] Pooja Elam MD [address] [place] [address] 01/08/2025 9:00 AM EDT Nurse Only [facility] 15 [facility] 201 [place] [address] Sivan Montgomery MD, MPH [address] [address] [email or web address] 04/01/2025 8:00 AM EST Office Visit [facility] Rheumatology 22 [place] [address] Alma Delia Castro MD [address] [place] [address] 203 [place] [address] [email or web address] 05/15/2025 1:20 PM EST Office Visit [facility] [address] Floor, [address] [place] [address] Juan Burns MD 22 [facility], [address] [place] [address] 05/26/2025 8:00 AM EST Office Visit [facility] Primary Care [address] [place] [address] Pooja Elam MD [address] [address] 06/08/2025 9:00 AM EST Office Visit [facility] [address] [place] [address] Santa Lewis MD 22 [facility], 1st [place] [address] 06/15/2025 9:00 AM EST Office Visit [facility] 22 [facility] 3rd Floor, [address] [place] [address] Anup Ward MD, MS 22 [facility], [address] [place] [address] 11/24/2025 9:00 AM EDT Office Visit [facility] Primary [facility] [address] [place] [address] Pooja Elam MD [address] [address] documented as of this encounter Procedures Procedure Name Priority Date/Time Associated Diagnosis Comments COMPREHENSIVE METABOLIC PANEL Routine 03/05/2019 7:40 AM EST Essential hypertension documented in this encounter Results * (ABNORMAL) Comprehensive metabolic panel (03/05/2019 7:40 AM EST) SODIUM 139 133 - 146 mmol/L [facility] POTASSIUM 4.1 3.3 - 5.1 mmol/L [facility] CHLORIDE 99 96 - 108 mmol/L [facility] CO2 26 21 - 35 mmol/L [facility] BUN 12 6 - 19 mg/dL [facility] CREATININE 0.60 0.5 - 1.5 mg/dL [facility] GLUCOSE 229(H) 70 - 99 mg/dL [facility] ALBUMIN 4.6 3.9 - 4.8 g/dL [facility] TOTAL PROTEIN 7.8 6.5 - 8.0 g/dL [facility] CALCIUM 9.8 8.4 - 10.3 mg/dL [facility] ALKALINE PHOSPHATASE 123(H) 39 - 117 U/L [facility] TOTAL BILIRUBIN 0.4 0.0 - 1.2 mg/dL [facility] AST 29 0 - 37 U/L [facility] ALT 60(H) 0 - 40 U/L [facility] GLOBULIN 3.2 1 - 4.8 g/dL [facility] EGFR 95 >59 mL/min/1.7 3m2 [facility] Comment:If patient is black, multiply result by 1.159. Estimated glomerular filtration rate calculated using the CKD-EPI equation. ANION GAP 18 10 - 20 mmol/L [facility] Blood 03/05/2019 7:40 AM EST 03/05/2019 7:42 AM EST us Taylor Beach MD LAB BLOOD ORDERABLES Fin al Result [address] [address] documented in this encounter Visit Diagnoses Diagnosis Essential hypertension Unspecified essential hypertension documented in this encounter Additional Health Concerns Assessment Noted Time PHQ-2 Depression Total Score: 0 09/24/19 19 9:43 AM EDT documented as of this encounter Care Teams Or Rn Relationship Specialty Start Date End Date Shelby Keenan DO [address] [place] [address] [email or web address] PCP - General Family Medicine 07/11/18 08/19/20 Sivan Montgomery MD, MPH [address] [address] [email or web address] PCP - General Family Medicine 08/20/20 Ruy Darling MD [address] [place] [address] [email or web address] Historical LMR Provider 01/30/17 12/23/23 Adin Becerra MD [email or web address] Historical LMR Provider 01/30/17 02/19/22 Kathleen Lopez MD 22 [facility], [facility] 102 [place] [address] [email or web address] Historical LMR Provider 01/30/17 Weston Hamilton DO [address] [place] [address] Historical LMR Provider 01/30/1702/19 [place] [address] [email or web address] Historical LMR Provider 01/30/17 10/24/20 Santa Lewis MD 22 [facility], 1st [place] [address] Endocrinology 10/26/20 Alma Delia Castro MD 22 [facility], [address] [place] [address] Rheumatology 02/20/22 Archie Ramos MD [address] [place] [address] [address] [place] [address] Orthopedic Surgery 12/24/23 Sung Jane MD [address] [place] [address] Neurology 12/24/23 José Hernández MD [address] [place] [address] [address] [place] [address] Neurosurgery 12/24/23 Ruy Darling MD [address] [place] [address] Intensive Care 12/24/23 documented as of this encounter Additional Source Comments The information contained in this document represents components of the legal health record. It is not the complete legal health record.[facility]
--- OUTSIDE RECORDS SUMMARY | 2024-12-09 07:43 | XMS_ITS | Encounter Summary ---
Author Organization [facility] Address [address] [facility] [address] [place] [address] Phone Care Team Providers Care Rail Operations Controller Name Role Phone Kathleen Lopez MD Unavailable Sivan Montgomery MD, MPH Primary Care Provid er Santa Lewis MD Unavailable [phone] Alma Delia Castro MD Unavailable [phone] Archie Ramos MD Unavailable Sung Jane MD Unavai lable José Hernández MD Unavailable [phone] Ruy Darling MD Unavailable [phone] Encounter Details Date Type Department Care Team (Latest Contact Info) Description 02/20/2024 Transcribe Orders [facility] Laboratory [address] [phone] Mare Drake PA 10 [place], [place] [phone] Familial Mediterranean fever (Primary Dx) Social History Tobacco Use Types [...] 12/04/2024 Procedure Pass [facility] 30 [place] [address] 01/01/2025 9:30 AM EDT Appointment [facility] Echo Lab 30 [place] [address] Pooja Elam MD [address] [address] 01/08/2025 9:00 AM EDT Nurse Only [facility] 15 [facility] [address] [place] [address] Sivan Montgomery MD, MPH [address] [address] 04/01/2025 8:00 AM EST Office Visit [facility] Rheumatology [address] [place] [address] Alma Delia Castro MD 22 [facility], [address] [place] [address] [email or web address] 05/15/2025 1:20 PM EST Office Visit [facility] [address] 3rd Floor, [address] [place] [address] Juan Burns MD 22 [facility], [address] [place] [address] 05/26/2025 8:00 AM EST Office Visit [facility] Primary Care 15 [facility] [address] [place] [address] Pooja Elam MD [address] [address] 06/08/2025 9:00 AM EST Office Visit [facility] 22 [place] [address] Santa Lewis MD 22 [facility], 1st [place] [address] 06/15/2025 9:00 AM EST Office Visit [facility] 22 [facility] 3rd Floor, [address] [place] [address] Anup Ward MD, MS 22 [facility], [address] [place] [address] 11/24/2025 9:00 AM EDT Office Visit [facility] Primary Care 15 [facility] [address] [place] [address] Pooja Elam MD [address] [address] documented as of this encounter Results * Liver fibrosis test (02/20/2024 7:54 AM EST) Fibrosis score 0.18 [facility] Interpretation (Fibrosis) SEE NOTE [facility] Comment: (NOTE) no fibrosis Fibro Test Score [...] HCV Fibrosis Grade F0 Q [facility] NECROINFLAMM SCORE 0.06 Q [facility] NECROINFLAMM GRADE A0 Q [facility] NECROINFLAMM INTERP SEE NOTE [facility]/ [facility] Comment: (NOTE) no activity ActiTest [...] A2 Macroglobulin 187 106 - 279 mg/dL [facility]/ [facility] Haptoglobin 179 43 - 212 mg/dL [facility] Apolipoprotein A1 157 101 - 198 mg/dL [facility] TOTAL BILIRUBIN 0.5 0.2 - 1.2 mg/dL [facility] GGT 21 3 - 65 U/L [facility] ALT 18 6 - 29 U/L [facility] Specimen/Product ID [id number] [facility] Comments (Chemistry) SEE NOTE [facility] Comment: (NOTE) The reliability of results is dependent on compliance with the preanalytical and analytical conditions recommended by [employer]. The tests have to be deferred for: [...] The performance characteristics have been determined by [facility]. It has not been cleared or approved by the U.S. Food and Drug Administration. Performance characteristics refer to the analytical performance of the test. [employer], the associated logo, [employer] and all associated [employer] galvez are the registered trademarks of [employer]. All third green party galvez - (R) and (TM) - are the property of their respective owners. (C) [id number] [employer]. All rights reserved. Blood 02/20/2024 7:54 AM EST 02/20/2024 8:01 AM EST Mare JOSHI LAB BLOOD ORDERABLES Final Result [employer] [facility] [address] [place] [address], [facility] [phone] * (ABNORMAL) Comprehensive metabolic panel (02/20/2024 7:54 AM EST) SODIUM 134 133 - 146 mmol/L [facility] POTASSIUM 3.6 3.3 - 5.1 mmol/L [facility] CHLORIDE 96 96 - 108 mmol/L [facility] CO2 26 21 - 35 mmol/L [facility] BUN 23(H) 6 - 19 mg/dL [facility] CREATININE 0.90 0.5 - 1.5 mg/dL [facility] GLUCOSE 98 70 - 99 mg/dL [facility] ALBUMIN 4.4 3.9 - 4.8 g/dL [facility] TOTAL PROTEIN 7.6 6.5 - 8.0 g/dL [facility] CALCIUM 10.1 8.4 - 10.3 mg/dL [facility] ALKALINE PHOSPHATASE 117 39 - 117 U/L [facility] TOTAL BILIRUBIN 0.4 0.0 - 1.2 mg/dL [facility] AST 15 0 - 37 U/L [facility] ALT 22 0 - 40 U/L [facility] GLOBULIN 3.2 1 - 4.8 g/dL [facility] EGFR 68 >59 mL/min/1.7 3m2 [facility] Comment:Estimated glomerular filtration rate calculated using the CKD-EPI refit equation. ANION GAP 16 10 - 20 mmol/L [facility] Blood 02/20/2024 7:54 AM EST 02/20/2024 8:02 AM EST us Mare JOSHI LAB BLOOD ORDERABLES Final Result Performing Organization Address City/State/[facility] Co de Phone Number [address] [address] * (ABNORMAL) CBC (02/20/2024 7:54 AM EST) WBC 8.00 4.00 - 11.00 K/uL [facility] RBC 4.70 4.00 - 5.20 M/uL [facility] HGB 14.7 12.0 - 16.0 g/dL [facility] HCT 42.5 36.0 - 46.0 % [facility] PLT 239 150 - 450 K/uL [facility] MCV 90.4 80.0 - 100.0 fL [facility] MCH 31.3(H) 27.0 - 31.0 pg [facility] MCHC 34.6 32.0 - 36.0 g/dL [facility] RDW 13.2 11.5 - 14.5 % [facility] MPV 12.8(H) 8.4 - 12.0 fL [facility] NRBC 0.00 0.00 /100 WBCs [facility] ABSOLUTE NRBC 0.00 0.00 K/uL [facility] Blood 02/20/2024 7:54 AM EST 02/20/2024 8:02 AM EST us Mare JOSHI LAB BLOOD ORDERABLES Final Result [facility] 30 [place] [address] documented in this encounter Visit Diagnoses Diagnosis Familial Mediterranean fever- Primary documented in this encounter Additional Health Concerns Assessment Noted Time PHQ-2 Depression Total Score: 0 11/21/19 24 9:11 AM EDT documented as of this encounter Care Teams Rail Operations Controller Relationship Specialty Start Date End Date Sivan Montgomery MD, MPH [address] [facility] [address] [place] [address] [email or web address] PCP - General Family Medicine 08/20/20 Kathleen Lopez MD 22 [facility], [address] [place] [address] Historical LMR Provider 01/30/17 Santa Lewis MD 22 [facility], 1st [place] [address] Endocrinology 10/26/20 Alma Delia Castro MD 22 [facility], [facility] 203 [place] [address] Rheumatology 02/20/22 Archie Ramos MD [address] [place] [address] [address] [place] [address] Orthopedic Surgery 12/24/23 Sung Jane MD [address] [place] [address] 150 [place] [address] Neurology 12/24/23 José Hernández MD [address] [place] [place] [address] [address] [place] [address] Neurosurgery 12/24/23 Ruy Darling MD [address] [place] [address] [email or web address] Intensive Care 12/24/23 documented as of this encounter Additional Source Comments The information contained in this document represents components of the legal health record. It is not the complete legal health record.[facility]
--- OUTSIDE RECORDS SUMMARY | 2024-12-09 07:43 | XMS_ITS | Encounter Summary ---
Author Organization [facility] Address [address] [facility] [address] [place] [address] Phone Care Team Providers Care Marine Radio Installer And Servicer Name Role Phone Ruy Darling MD Unavailable [phone] Adin Becerra MD Unavailable [email or web address] Kathleen Lopez MD Unavailable Weston Hamilton DO Unavailable [phone] Dionne Latif MD Unavailable Shelby Keenan DO Primary Care Provider [phone] Sivan Montgomery MD, MPH Primary Care Provid er Santa Lewis MD Unavailable [phone] Alma Delia Castro MD Unavailable Archie Ramos MD Unavailable [phone] Sung Jane MD Unavailable José Hernández MD Unavailable Ruy Darling MD Unavailable [phone] Encounter Details Date Type Department Care Team (Late st Contact Info) Description 01/09/2019 Transcribe [facility] [address] [place] [address] 3rd Floor, [address] [place] [address] Taylor Beach MD [address] [place] [address] [email or web address] Social History Tobacco Use Types Packs/Day Years [...] 12/04/2024 Procedure Pass [facility] 30 [place] [address] 01/01/2025 9:30 AM EDT Appointment [facility] 30 [place] [address] Pooja Elam MD [address] [address] 01/08/2025 9:00 AM EDT Nurse Only [facility] [place] [facility] [address] [address] Sivan Montgomery MD, MPH [address] [address] [email or web address] 04/01/2025 8:00 AM EST Office Visit [facility] Rheumatology [address] [place] [address] Alma Delia Castro MD 22 [facility] 203 [place] [address] [email or web address] 05/15/2025 1:20 PM EST Office Visit [facility] [address] 3rd Floor, [address] [place] [address] Juan Burns MD 22 [facility], [address] [place] [address] 05/26/2025 8:00 AM EST Office Visit [facility] Primary Care [address] [place] [address] Pooja Elam MD [address] [address] 06/08/2025 9:00 AM EST Office Visit [facility] [address] [place] [address] Santa Lewis MD 22 [facility], 1st [place] [address] 06/15/2025 9:00 AM EST Office Visit [facility] 22 [facility] 3rd Floor, [address] [place] [address] Anup Ward MD, MS 22 [facility], [address] [place] [address] 11/24/2025 9:00 AM EDT Office Visit [facility] Primary Care [address] [address] Pooja Elam MD [address] [address] documented as of this encounter Visit Diagnoses Not on filedocumented in this encounter Additional Health Concerns Assessment Noted Time PHQ-2 Depression Total Score: 0 09/24/19 19 9:43 AM EDT documented as of this encounter Care Teams Marine Radio Installer And Servicer Relationship Specialty Start Date End Date Shelby Keenan DO [address] [place] [address] [email or web address] PCP - General Family Medicine 07/11/18 08/19/20 Sivan Montgomery MD, MPH [address] [place] [address] [email or web address] PCP - General Family Medicine 08/20/20 Ruy Darling MD [address] [place] [address] [email or web address] Historical LMR Provider 01/30/17 12/23/23 Adin Becerra MD [email or web address] Historical LMR Provider 01/30/17 02/19/22 Kathleen Lopez MD [address] [place] [address] 102 [place] [address] [email or web address] Historical LMR Provider 01/30/17 Weston Hamilton DO [address] [place] [address] Historical LMR Provider 01/30/1702/19 [place] [address] [email or web address] Historical LMR Provider 01/30/17 10/24/20 Santa Lewis MD [address] [place] [address], 1st [place] [address] Endocrinology 10/26/20 Alma Delia Castro MD 22 [facility], [address] [place] [address] Rheumatology 02/20/22 Archie Ramos MD [address] [place] [address] [address] [place] [address] Orthopedic Surgery 12/24/23 Sung Jane MD [address] [place] [address] Neurology 12/24/23 José Hernández MD [address] [place] [address] [address] [place] [address] Neurosurgery 12/24/23 Ruy Darling MD [address] [place] [address] Intensive Care 12/24/23 documented as of this encounter Additional Source Comments The information contained in this document represents components of the legal health record. It is not the complete legal health record.[facility]
--- OUTSIDE RECORDS SUMMARY | 2024-12-09 07:43 | XMS_ITS | Encounter Summary ---
Author Organization [facility] Address [address] [facility] [address] [place] [address] Phone Care Team Providers Care Promotions Associate Name Role Phone Ruy Darling MD Unavailable [phone] Adin Becerra MD Unavailable [email or web address] Kathleen Lopez MD Unavailable Weston Hamilton DO Unavailable [phone] Dionne Latif MD Unavailable Shelby Keenan DO Primary Care Provider [phone] Sivan Montgomery MD, MPH Primary Care Provid er Santa Lewis MD Unavailable [phone] Alma Delia Castro MD Unavailable Archie Ramos MD Unavailable [phone] Sung Jane MD Unavailable José Hernández MD Unavailable Ruy Darling MD Unavailable [phone] Encounter Details Date Type Department Care Team (Late st Contact Info) Description 03/10/2019 Procedure Pass [facility] Endoscopy Admitting Dept Virtual Department 30 [place] [address] Social History Tobacco Use Types Packs/Day Years [...] 12/04/2024 Procedure Pass [facility] 30 [place] [address] 01/01/2025 9:30 AM EDT Appointment [facility] 30 [place] [address] Pooja Elam MD [address] [address] 01/08/2025 9:00 AM EDT Nurse Only [facility] [place] [facility] 15 [facility] 201 [place] [address] Sivan Montgomery MD, MPH 15 [facility] 201 [place] [address] 04/01/2025 8:00 AM EST Office Visit [facility] Rheumatology [address] [place] [address] Alma Delia Castro MD 22 [facility], [facility] 203 [place] [address] [email or web address] 05/15/2025 1:20 PM EST Office Visit [facility] [address] [place] 3rd Floor, [address] [place] [address] Juan Burns MD 22 [facility], [address] [address] 05/26/2025 8:00 AM EST Office Visit [facility] Primary Care 15 [facility] 201 [place] [address] Pooja Elam MD [address] [address] 06/08/2025 9:00 AM EST Office Visit [facility] 22 [place] [address] Santa Lewis MD 22 [facility], 1st [place] [address] 06/15/2025 9:00 AM EST Office Visit [facility] 22 [facility] 3rd Floor, [address] [place] [address] Anup Ward MD, MS 22 [facility], [address] [address] 11/24/2025 9:00 AM EDT Office Visit [facility] Primary Care 15 [facility] [address] [place] [address] Pooja Elam MD [address] [address] documented as of this encounter Visit Diagnoses Not on filedocumented in this encounter Additional Health Concerns Assessment Noted Time PHQ-2 Depression Total Score: 0 09/24/19 19 9:43 AM EDT documented as of this encounter Care Teams Promotions Associate Relationship Specialty Start Date End Date Shelby Keenan DO [address] [place] [address] [email or web address] PCP - General Family Medicine 07/11/18 08/19/20 Sivan Montgomery MD, MPH [address] [address] [email or web address] PCP - General Family Medicine 08/20/20 Ruy Darling MD [address] [place] [address] [email or web address] Historical LMR Provider 01/30/17 12/23/23 Adin Becerra MD [email or web address] Historical LMR Provider 01/30/17 02/19/22 Kathleen Lopez MD 22 [facility], [facility] 102 [place] [address] [email or web address] Historical LMR Provider 01/30/17 Weston Hamilton DO [address] [place] [address] Historical LMR Provider 01/30/1702/19 [place] [address] [email or web address] Historical LMR Provider 01/30/17 10/24/20 Santa Lewis MD [address] [place] [address], 1st [place] [address] [facility] 10/26/20 Alma Delia Castro MD [address] [facility], [address] [place] [address] Rheumatology 02/20/22 Archie Ramos MD [address] [place] [address] [address] [place] [address] Orthopedic Surgery 12/24/23 Sung Jane MD [address] [place] [address] Neurology 12/24/23 José Hernández MD [address] [place] [address] [address] [place] [address] Neurosurgery 12/24/23 Ruy Darling MD [address] [place] [address] [email or web address] Intensive Care 12/24/23 documented as of this encounter Additional Source Comments The information contained in this document represents components of the legal health record. It is not the complete legal health record.[facility]
--- OUTSIDE RECORDS SUMMARY | 2024-12-09 07:43 | XMS_ITS | Encounter Summary ---
Author Organization [facility] Address [address] [facility] [address] [place] [address] Phone Care Team Providers Care Dry Wall Plasterer Name Role Phone Ruy Darling MD Unavailable [phone] Adin Becerra MD Unavailable [email or web address] Kathleen Lopez MD Unavailable Weston Hamilton DO Unavailable [phone] Sivan Montgomery MD, MPH Primary Care Provid er Santa Lewis MD Unavailable [phone] Alma Delia Castro MD Unavailable [phone] Archie Ramos MD Unavailable [phone] Sung Jane MD Unavailable José Hernández MD Unavailable [phone] Ruy Darling MD Unavailable [phone] Encounter Details Date Type Department Care Team (Late st Contact Info) Description 09/13/2021 Procedure Pass [facility] Endoscopy Admitting Dept Virtual Department 30 [place] [address] Social History Tobacco Use Types Packs/Day [...] high school, GED, job training, learning the Greek language, technical skills, or developing parenting skills)? [...] 12/04/2024 Procedure Pass [facility] 30 [place] [address] 01/01/2025 9:30 AM EDT Appointment [facility] 30 [place] [address] Pooja Elam MD [address] [place], [place] [address] [address] 01/08/2025 9:00 AM EDT Nurse Only [facility] Primary Care 15 [facility] 201 [place] [address] Sivan Montgomery MD, MPH 15 [facility] 201 [place] [address] 04/01/2025 8:00 AM EST Office Visit [facility] Rheumatology [address] [place] [address] Alma Delia Castro MD 22 [facility], [address] [place] [address] [email or web address] 05/15/2025 1:20 PM EST Office Visit [facility] [address] [place] [address] 3rd Floor, [address] [place] [address] Juan Burns MD 22 [facility], [address] [place] [address] 05/26/2025 8:00 AM EST Office Visit [facility] Primary Care 15 [place] [facility] 201 [place] [address] Pooja Elam MD 15 [facility] 201 [place] [address] 06/08/2025 9:00 AM EST Office Visit [facility] [address] [place] [address] Santa Lewis MD 22 [facility], 1st [place] [address] 06/15/2025 9:00 AM EST Office Visit [facility] 22 [facility] 3rd Floor, [address] [place] [address] Anup Ward MD, MS 22 [facility], [address] [place] [address] [email or web address] 11/24/2025 9:00 AM EDT Office Visit [facility] Primary Care 15 [facility] [address] [place] [address] Pooja Elam MD 15 [facility] 201 [place] [address] [email or web address] documented as of this encounter Visit Diagnoses Not on filedocumented in this encounter Additional Health Concerns Assessment Noted Time PHQ-2 Depression Total Score: 0 09/24/19 19 9:43 AM EDT documented as of this encounter Care Teams Dry Wall Plasterer Relationship Specialty Start Date End Date Sivan Montgomery MD, MPH 15 [facility] [address] [place] [address] [email or web address] PCP - General Family Medicine 08/20/20 Ruy Darling MD [address] [place] [address] 2[address] [place] [address] [email or web address] Historical LMR Provider 01/30/17 12/23/23 Adin Becerra MD [email or web address] Historical LMR Provider 01/30/17 02/19/22 Kathleen Lopez MD 22 [facility], [address] [place] [address] [email or web address] Historical LMR Provider 01/30/17 Alfonso Weston [address] [place] [address] 201 [place] [address] Historical LMR Provider 01/30/1702/19 Santa Lewis MD 22 [facility], 1st [place] [address] Endocrinology 10/26/20 Alma Delia Castro MD 22 [facility], [address] [place] [address] Rheumatology 02/20/22 Archie Ramos MD [address] [place] [address] [address] [place] [address] Orthopedic Surgery 12/24/23 Sung Jane MD [address] [place] [address] 150 [place] [address] Neurology 12/24/23 José Hernández MD [address] [place] [address] [address] [place] [address] Neurosurgery 12/24/23 Ruy Darling MD [address] [place] [address] Intensive Care 12/24/23 documented as of this encounter Additional Source Comments The information contained in this document represents components of the legal health record. It is not the complete legal health record.[facility]
--- OUTSIDE RECORDS SUMMARY | 2024-12-09 07:43 | XMS_ITS | Encounter Summary ---
Author Organization [facility] Address [address] [facility] [address] [place] [address] Phone Care Team Providers Care Ore Bridge Operator Name Role Phone Weston Hamilton DO Primary Care Provider Ruy Darling MD Unavailable [phone] Adni Becerra MD Unavailable [email or web address] Kathleen Lopez MD Unavailable Weston Hamilton DO Unavailable [phone] Dionne Latif MD Unavailable Shelby Keenan DO Primary Care Provider [phone] Sivan Montgomery MD, MPH Primary Care Provid er Santa Lewis MD Unavailable [phone] Alma Delia Castro MD Unavailable [phone] Archie Ramos MD Unavailable Sung Jane MD Unavailable José Hernández MD Unavailable Ruy Darling MD Unavailable [phone] Encounter Details Date Type Department Care Team (Late st Contact Info) Description 06/13/2018 Ancillary Orders Virtual Department 30 [place] [address] Reji Mcarthur MD 30 [place] [address] [email or web address] Spondylolisthesis, unspecified spinal region Social History Tobacco Use Types Packs/Day [...] 12/04/2024 Procedure Pass [facility] 30 [place] [address] 01/01/2025 9:30 AM EDT Appointment [facility] 30 [place] [address] Pooja Elam MD [address] [place] [address] 01/08/2025 9:00 AM EDT Nurse Only [facility] [place] [facility] [address] [address] Sivan Montgomery MD, MPH [address] [address] 04/01/2025 8:00 AM EST Office Visit [facility] Rheumatology [address] [place] [address] Alma Delia Castro MD 22 [facility], [facility] 203 [place] [address] [email or web address] 05/15/2025 1:20 PM EST Office Visit [facility] 22 [facility] 3rd Floor, [address] [place] [address] Juan Burns MD 22 [facility], [address] [place] [address] 05/26/2025 8:00 AM EST Office Visit [facility] Primary Care [address] [address] Pooja Elam MD [address] [address] 06/08/2025 9:00 AM EST Office Visit [facility] 22 [place] [address] Santa Lewis MD 22 [facility], 1st [place] [address] 06/15/2025 9:00 AM EST Office Visit [facility] 22 [facility] 3rd Floor, [address] [place] [address] Anup Ward MD, MS 22 [facility], [address] [place] [address] 11/24/2025 9:00 AM EDT Office Visit [facility] Primary Care [address] [address] Pooja Elam MD [address] [address] documented as of this encounter Results * XR LUMBOSACRAL SPINE 2-3 VIEWS (06/24/2018 1:02 PM EDT) Anatomical Region Laterality Modality L-spine Radiographic Cecile ging 06/24/2018 1:15 PM EDT Impressions 06/24/2018 1:18 PM EDT No abnormal motion evident on lateral flexion and extension views. S/S: Low back pain, chronic low back pain, degenerative disc disease, lumbar spondylosis POS - [id number] Narrative 06/24/2018 1:18 PM EDT COMPARISON: MRI lumbar spine 02/15/2017 FINDINGS: Lateral neutral, flexion, and extension views of the lumbar spine are obtained. On lateral neutral imaging there is mild facet joint sclerosis and minimal spurring along the vertebral body endplates. No significant subluxation or spondylolisthesis is suggested. Disc space narrowing is most prominent at L1-2. With flexion extension views, no abnormal motion is evident. Procedure Note Vickey Khanna MD - 06/24/2018 COMPARISON: MRI lumbar spine 02/15/2017 FINDINGS: Lateral neutral, flexion, and extension views of the lumbar spine areobtained. On lateral neutral imaging there is mild facet joint sclerosis and minimalspurring along the vertebral body endplates. No significant subluxation orspondylolisthesis is suggested. Disc space narrowing is most prominent atL1-2. With flexion extension views, no abnormal motion is evident. IMPRESSION: No abnormal motion evident on lateral flexion and extension views. S/S: Low back pain, chronic low back pain, degenerative disc disease,lumbar spondylosis POS - [id number] Reji Mcarthur MD IMG XR SPINE Final Res ult documented in this encounter Visit Diagnoses Diagnosis Spondylolisthesis, unspecified spinal region Spondylolisthesis, unspecified spinal region documented in this encounter Care Teams Ore Bridge Operator Relationship Specialty Start Date End Date Weston Hamilton DO PCP - General 10/14/13 07/10/18 Shelby Keenan DO [address] [place] [address] [email or web address] PCP - General Family Medicine 07/11/18 08/19/20 Sivan Montgomery MD, MPH [address] [place] [address] [email or web address] PCP - General Family Medicine 08/20/20 Ruy Darling MD [address] [place] [address] [email or web address] Historical LMR Provider 01/30/17 12/23/23 Adin Becerra MD [email or web address] Historical LMR Provider 01/30/17 02/19/22 Kathleen Lopez MD [address] [place] [address] [email or web address] Historical LMR Provider 01/30/17 Weston Hamilton DO [address] [place] [address] Historical LMR Provider 01/30/1702/19 [place] [address] [email or web address] Historical LMR Provider 01/30/17 10/24/20 Santa Lewis MD [address] [place] [address], [facility] [place] [address] Endocrinology 10/26/20 Alma Delia Castro MD 22 [facility], [address] [place] [address] Rheumatology 02/20/22 Archie Ramos MD [address] [place] [address] [address] [place] [address] Orthopedic Surgery 12/24/23 Sung Jane MD [address] [place] [address] Neurology 12/24/23 Joés Hernández MD [address] [place] [address] [address] [place] [address] Neurosurgery 12/24/23 Ruy Darling MD [address] [place] [address] [email or web address] Intensive Care 12/24/23 documented as of this encounter Additional Source Comments The information contained in this document represents components of the legal health record. It is not the complete legal health record.[facility]
--- OUTSIDE RECORDS SUMMARY | 2024-12-09 07:43 | XMS_ITS | Encounter Summary ---
Author Organization [facility] Address [address] [facility] [address] [facility] [address] [place] [address] Phone Care Team Providers Care Chiropractic Doctor Name Role Phone Ruy Darling MD Unavailable [phone] Adin Becerra MD Unavailable [email or web address] Kathleen Lopez MD Unavailable Weston Hamilton DO Unavailable [phone] Dionne Latif MD Unavailable Shelby Keenan DO Primary Care Provider [phone] Sivan Montgomery MD, MPH Primary Care Provid er Santa Lewis MD Unavailable [phone] Alma Delia Castro MD Unavailable Archie Ramos MD Unavailable [phone] Sung Jane MD Unavailable José Hernández MD Unavailable Ruy Darling MD Unavailable [phone] Encounter Details Date Type Department Care Team (Late st Contact Info) Description 01/28/2019 Procedure Pass [facility] Cardiovascular And Interventional Radiology [address] [place], [place] [id number] Social History Tobacco Use Types Packs/Day Years [...] 12/04/2024 Procedure Pass [facility] [address] [place] [address] 01/01/2025 9:30 AM EDT Appointment [facility] [address] [place] [address] Pooja Elam MD [address] [address] 01/08/2025 9:00 AM EDT Nurse Only [facility] Primary Care [address] [facility] [address] [place] [address] Sivan Montgomery MD, MPH [address] [address] 04/01/2025 8:00 AM EST Office Visit [facility] Rheumatology [address] [place] [address] Alma Delia Castro MD [address] [facility], [facility] 203 [place] [address] [email or web address] 05/15/2025 1:20 PM EST Office Visit [facility] [address] [facility] 3rd Floor, [address] [place] [address] Juan Burns MD [address] [facility], [address] [place] [address] 05/26/2025 8:00 AM EST Office Visit [facility] Primary Care [address] [facility] 201 [place] [address] Pooja Elam MD 15 [facility]. [address] [place] [address] 06/08/2025 9:00 AM EST Office Visit [facility] 22 [place] [address] Santa Lewis MD [address] [facility], 1st [place] [address] 06/15/2025 9:00 AM EST Office Visit [facility] [address] [facility] 3rd Floor, [address] [place] [address] Anup Ward MD, MS [address] [facility], [address] [address] 11/24/2025 9:00 AM EDT Office Visit [facility] Primary Care [address] [place] [address] Pooja Elam MD [address] [address] documented as of this encounter Visit Diagnoses Not on filedocumented in this encounter Additional Health Concerns Assessment Noted Time PHQ-2 Depression Total Score: 0 09/24/19 19 9:43 AM EDT documented as of this encounter Care Teams Chiropractic Doctor Relationship Specialty Start Date End Date Shelby Keenan DO [address] [place] [address] [email or web address] PCP - General Family Medicine 07/11/18 08/19/20 Sivan Montgomery MD, MPH [address] [place] [address] [email or web address] PCP - General Family Medicine 08/20/20 Ruy Darling MD [address] [place] [address] [email or web address] Historical LMR Provider 01/30/17 12/23/23 Adin Becerra MD [email or web address] Historical LMR Provider 01/30/17 02/19/22 Kathleen Lopez MD [address] [place] [address] [address] [place] [address] [email or web address] Historical LMR Provider 01/30/17 Weston Hamilton DO [address] [place] [address] Historical LMR Provider 01/30/1702/19 [place] [address] [email or web address] Historical LMR Provider 01/30/17 10/24/20 Santa Lewis MD [address] [place] [address], [facility] [place] [address] [email or web address] Endocrinology 10/26/20 KlAlma Delia Barrett MD [address] [facility], [address] [place] [address] Rheumatology 02/20/22 Archie Ramos MD [address] [place] [address] [address] [place] [address] Orthopedic Surgery 12/24/23 Sung Jane MD [address] [place] [address] Neurology 12/24/23 José Hernández MD [address] [place] [address] [address] [place] [address] Neurosurgery 12/24/23 Ruy Darling MD [address] [place] [address] [email or web address] Intensive Care 12/24/23 documented as of this encounter Additional Source Comments The information contained in this document represents components of the legal health record. It is not the complete legal health record.[facility]
--- OUTSIDE RECORDS SUMMARY | 2024-12-09 07:43 | XMS_ITS | Encounter Summary ---
Author Organization [facility] Address [address] [facility] [address] [place] [address] Phone Care Team Providers Care Inbound Customer Service Agent Name Role Phone Weston Hamilton DO Primary Care Provider [phone] Ruy Darling MD Unavailable [phone] Adin Becerra MD Unavailable [email or web address] Katlheen Lopez MD Unavailable Weston Hamilton DO Unavailable [phone] Dionne Latif MD Unavailable [phone] Shelby Keenan DO Primary Care Provider [phone] Sivan Montgomery MD, MPH Primary Care Provid er Santa Lewis MD Unavailable [phone] Alma Delia Castro MD Unavailable Archie Ramos MD Unavailable Sung Jane MD Unavailable José Hernández MD Unavailable Ruy Darling MD Unavailable [phone] Reason for Referral * MRI/CAT Scan - Closed Specialty Diagnoses / Procedures Referred By Contac t Referred To Contact Radiology Diagnoses White matter disease Numbness Weakness Vertigo Procedures MRI Brain Ashwin Almonte MD Phone: tel: fax: mailto:[email or web address] Referral ID Status Reason Start Date Expiration Date Visits Re quested Visits Authorized [id number] Closed 05/13/2018 05/13/2019 1 1 Encounter Details Date Type Department Care Team (Late Contact Info) Description 05/13/2018 Ancillary Orders Virtual Department [address] [place] [address] Ashwin Almonte MD [address] [place] [address], [address] [place] [address] [email or web address] White matter disease; Numbness; Weakness; Vertigo Social History Tobacco Use Types Packs/Day Years [...] Encounters Date Type Department Care Team (Late Contact Info) Description 12/04/2024 Procedure Pass [facility] 30 [place] [address] 01/01/2025 9:30 AM EDT Appointment [facility] 30 [place] [address] Pooja Elam MD [address] [place] [address] 01/08/2025 9:00 AM EDT Nurse Only [facility] Primary Care 15 [facility] 201 [place] [address] Sivan Montgomery MD, MPH 15 [facility] 201 [place] [address] 04/01/2025 8:00 AM EST Office Visit [facility] Rheumatology [address] [place] [address] Alma Delia Castro MD 22 [facility], [address] [place] [address] [email or web address] 05/15/2025 1:20 PM EST Office Visit [facility] [address] 3rd Floor, [address] [place] [address] Juan Burns MD [address] [place] [address], [address] [address] 05/26/2025 8:00 AM EST Office Visit [facility] Primary Care 15 [facility] 201 [place] [address] Pooja Elam MD [address] [address] 06/08/2025 9:00 AM EST Office Visit [facility] Diabetes Center 22 [place] [address] Santa Lewis MD 22 [facility], 1st [place] [address] 06/15/2025 9:00 AM EST Office Visit [facility] [address] [facility] 3rd Floor, [address] [place] [address] Anup Ward MD, MS 22 [facility], [address] [place] [address] [email or web address] 11/24/2025 9:00 AM EDT Office Visit [facility] Primary Care [address] [facility] [place] [address] Pooja Elam MD 15 [facility] Viraj. [address] [place] [address] [email or web address] documented as of this encounter Results * MRI BRAIN WITH AND WITHOUT CONTRAST (05/24/2018 9:00 AM EST) Anatomical Region Laterality Modality Head Magnetic Resonan ce 05/24/2018 12:5 8 PM EST Impressions 05/24/2018 1:35 PM EST Pronounced white matter disease, but without appreciable change since prior studies. No mass, hemorrhage, or infarction detected. No clear progression identified. No zones of blood brain barrier breakdown are seen. POS [id number] Edited by: Shahla Ayala on 05/24/2018 1:14 PM Narrative 05/24/2018 1:35 PM EST HISTORY: Dizziness, vertigo and numbness. White matter disease. Multiple sclerosis. COMPARISON: September 15, 2016 and June 04, 2018 TECHNIQUE: Exam performed on a 1.5 Sharon high-field MRI scanner. Axial T1, T2*, T2, T2 FLAIR and diffusion-weighted imaging with ADC map, sagittal T1 and T2 FLAIR sequences were obtained. Postcontrast sagittal and axial T1-weighted sequences were then obtained. FINDINGS: Severe white matter signal alteration again noted most confluent in the forceps minor regions and left frontal lobe. I do not appreciate a clear change or increase in number of lesions. Some do have a somewhat linear configuration on the sagittal T2 FLAIR sequence in a pattern suggesting MS-type demyelination. No blood brain barrier breakdown identified. No abnormal intra or extra-axial blood or fluid collection, mass, or mass effect is identified. No worrisome susceptibility effects. Pituitary not enlarged. No gross orbital lesions. Chronic presumably fatty lesion in the calvarium over the parietal region on the right appears unchanged since 2016. Small regional lymph nodes noted on the diffusion sequence but no enlarged or worrisome lesions. No areas of restricted diffusion. Procedure Note Ramon Girard MD - 05/24/2018 HISTORY: Dizziness, vertigo and numbness. White matter disease. Multiplesclerosis. COMPARISON: September 15, 2016 and June 04, 2018 TECHNIQUE: Exam performed on a 1.5 Sharon high-field MRI scanner. AxialT1, T2*, T2, T2 FLAIR and diffusion-weighted imaging with ADC map,sagittal T1 and T2 FLAIR sequences were obtained. Postcontrast sagittaland axial T1-weighted sequences were then obtained. FINDINGS: Severe white matter signal alteration again noted most confluent in theforceps minor regions and left frontal lobe. I do not appreciate a clearchange or increase in number of lesions. Some do have a somewhat linearconfiguration on the sagittal T2 FLAIR sequence in a pattern suggestingMS-type demyelination. No blood brain barrier breakdown identified. No abnormal intra or extra-axial blood or fluid collection, mass, or masseffect is identified. No worrisome susceptibility effects. Pituitary notenlarged. No gross orbital lesions. Chronic presumably fatty lesion in thecalvarium over the parietal region on the right appears unchanged [id number]. Small regional lymph nodes noted on the diffusion sequence but noenlarged or worrisome lesions. No areas of restricted diffusion. IMPRESSION: Pronounced white matter disease, but without appreciable change sinceprior studies. No mass, hemorrhage, or infarction detected. No clearprogression identified. No zones of blood brain barrier breakdown areseen. POS [id number] Edited by: Shahla Ayala on 05/24/2018 1:14 PM Ashwin Almonte MD IMG MR HEAD/NECK Final Resul t documented in this encounter Visit Diagnoses Diagnosis White matter disease Numbness Disturbance of skin sensation Weakness Other malaise and fatigue Vertigo Dizziness and giddiness White matter disease Numbness Disturbance of skin sensation Weakness Other malaise and fatigue Vertigo Dizziness and giddiness documented in this encounter Care Teams Inbound Customer Service Agent Relationship Specialty Start Date End Date Weston Hamilton DO PCP - General 10/14/13 07/10/18 Shelby Keenan DO [address] [place] [address] [email or web address] PCP - General Family Medicine 07/11/18 08/19/20 Sivan Montgomery MD, MPH [address] [place] [address] [email or web address] PCP - General Family Medicine 08/20/20 Ruy Darling MD [address] [place] [address] [email or web address] Historical LMR Provider 01/30/17 12/23/23 Adin Becerra MD [email or web address] Historical LMR Provider 01/30/17 02/19/22 Kathleen Lopez MD [address] [place] [address] [email or web address] Historical LMR Provider 01/30/17 Weston Hamilton DO [address] [place] [address] Historical LMR Provider 01/30/1702/19 [place] [address] [email or web address] Historical LMR Provider 01/30/17 10/24/20 Santa Lewis MD [address] [place] [address] Endocrinology 10/26/20 Alma Delia Castro MD 22 [facility], [address] [place] [address] Rheumatology 02/20/22 Archie Ramos MD [address] [place] [address] [address] [place] [address] Orthopedic Surgery 12/24/23 Sung Jane MD [address] [place] [address] Neurology 12/24/23 José Hernández MD [address] [place] [address] [address] [place] [address] Neurosurgery 12/24/23 Ruy Darling MD [address] [place] [address] Intensive Care 12/24/23 documented as of this encounter Additional Source Comments The information contained in this document represents components of the legal health record. It is not the complete legal health record.[facility]
--- NOTE | 2024-12-09 07:48 | A.OFFVIS_ITS ---
Intake Visit Reasons: New prob-Lt shoulder pain Intake Note: Meron is a 74 year old right hand dominant female who presents with complaints of left total shoulder arthroplasty ?dislocation? as well as frequent ?popping?. The patient states that she underwent left total shoulder replacement surgery at [facility] approximately 9 years ago. She states that recently she reached out while in bed and had acute onset of pain. She states that it felt like her shoulder dislocated at that time. She has been doing gentle stretching exercises. She also underwent right total shoulder replacement surgery by Dr. Farfan in [place] approximately 15 years ago. She denies any symptoms in her right shoulder. Allergies ampicillin Allergy (Intermediate, Verified 12/09/24 07:51) swelling Clindamycin HCl Allergy (Intermediate, Verified 12/09/24 07:51) itching Penicillins Allergy (Intermediate, Verified 12/09/24 07:51) rash/itching/swelling Sulfa (Sulfonamide Antibiotics) Allergy (Intermediate, Verified 12/09/24 07:51) redness/fever tetracycline Allergy (Intermediate, Verified 12/09/24 07:51) SOB cephalexin (Keflex) Allergy (Unknown, Verified 12/09/24 07:51) reaction unknown, long time ago oxaprozin (Daypro) Allergy (Unknown, Verified 12/09/24 07:51) reaction unknown, long time ago Medication List - Last Reconciled 12/09/24 by Archie Ramos MD albuterol sulfate 90 mcg/actuation 1 inh inhalation Q4H PRN atorvastatin 20 mg PO BEDTIME blood sugar diagnostic (OneTouch Verio test strips) As directed cetirizine 10 mg PO BEDTIME cholecalciferol (vitamin D3) (Vitamin D3) 50 mcg PO DAILY colchicine 0.3 mg PO DAILY CPAP (CPAP Machine/Device) As directed cyclobenzaprine 5 mg PO TID PRN epinephrine 0.3 mg IM ONCE PRN famotidine 40 mg PO BID fluticasone propionate 50 mcg/actuation 1 spray intranasal DAILY PRN hydrochlorothiazide 12.5 mg PO DAILY levofloxacin 750 mg PO DAILY levothyroxine 125 mcg PO DAILY@0600 loperamide 2 mg PO Q4H PRN magnesium 200 mg PO DAILY metoprolol succinate ER 25 mg PO DAILY nitroglycerin 0.3 mg sublingual ONCE PRN Oxygen Home Use As directed pen needle, diabetic (BD Sun 2nd Gen Pen Needle) As directed potassium chloride ER 10 mEq PO DAILY semaglutide (Ozempic) 0.25 mg subcut TIDWELL sumatriptan succinate 100 mg PO DAILY PRN turmeric 400 mg PO DAILY PFSH Medical History Arthritis of right hip Scoliosis PONV (postoperative nausea and vomiting) Skin cancer Arthritis Cirrhosis Asthma Restless legs syndrome (RLS) GERD (gastroesophageal reflux disease) TMJ (dislocation of temporomandibular joint) Obstructive sleep apnea Diabetes Hypothyroidism Fibromyalgia Mediterranean fever IBS (irritable bowel syndrome) COPD (chronic obstructive pulmonary disease) Chronic fatigue HTN (hypertension) Surgical History History of esophagogastroduodenoscopy (EGD) H/O colonoscopy Hx of hysterectomy Hx of cardiac catheterization Hx of dilation and curettage S/P insertion of spinal cord stimulator H/O abdominal surgery H/O breast surgery Hx of shoulder replacement Hx of cervical spine surgery Family History Sister Arthritis Father Clot Other Muscular dystrophy Social History Household Members: None Housing: Apartment Are you a primary floor care specialist to a significant other at home: No Do you presently have visiting nurse or other home services: No Alcohol intake: never Patient Tobacco Use Status: Never used Tobacco Advance Directives Date on File: 11/20/24 service: No Current occupational status: disabled Physical Exam Const Other: Well-nourished well-developed very friendly female awake alert and oriented x3 in no acute distress Extrem Other: Left shoulder examination shows decreased range of motion when compared to her right shoulder, 3/5 strength with supraspinatus testing Results Reviewed Results Reviewed: X-rays of the patient's left shoulder taken today show a total shoulder arthroplasty in good position, possible lytic lesions around the glenoid component consistent with possible glenoid loosening Assessment & Plan Assessment & Plan (1) Left shoulder pain: Code(s): M25.512 - Pain in left shoulder Category: Medical Plan Ms. Soria presents with left shoulder pain and symptoms of instability possibly due to early loosening of her glenoid component. Thus, I will refer the patient to a shoulder specialist for possible conversion to a reverse total shoulder arthroplasty. She will continue with her activity modifications in the meantime. Feel free to call me at any time should questions regarding her orthopedic management arise. Orders: Orders XR shoulder LT min 2V Today M25.512 - Pain in left shoulder Coding Level of Care Code Est Pt Level 3 (23438) Complex EM visit Add On G2211 Diagnoses Left shoulder pain M25.512
== END 2024-12-09 08:10 | disposition home or self-care (01) ==
LOC: HO.HOS 07:36
PROVIDERS: PCP Family Medicine; Visit Provider Orthopaedic Surgery
DX: M25.512 Pain in left shoulder (principal)
CPT/HCPCS: 99213; G2211

== ENCOUNTER → 2024-12-09 07:42 | Outpatient (BNV) | payer MEDICARE, MEDICAID, SELFPAY | PROVIDERS: Visit Provider Radiology Diagnostic Radiology | DX: M19.012 Primary osteoarthritis, left shoulder (principal) | CPT/HCPCS: 73030 ==

== ENCOUNTER 2024-12-09 08:08 | Outpatient (REF) | payer MEDICARE, MEDICAID, SELFPAY ==
--- OUTSIDE RECORDS SUMMARY | 2021-02-23 20:51 | XMS_ITS | Encounter Summary ---
Author Organization [facility] Address [email or web address] [place] [address] Phone Care Team Providers Care Beam Saw Operator Name Role Phone Ruy Darling MD Unavailable [phone] Adin Becerra MD Unavailable [email or web address] Kathleen Lopez MD Unavailable Weston Hamilton DO Unavailable [phone] Sivan Montgomery MD, MPH Primary Care Provid er Santa Lewis MD Unavailable [phone] Encounter Details Date Type Department Care Team (Late st Contact Info) Description 02/23/2021 7:51 PM EST Hospital Encounter [facility] 12 [place] [address] Leigh Ann Whalen PA 12 [place] [address] [email or web address] Social History Tobacco Use Types Packs/Day Years Used Date Smoking Tobacco: Never Passive Smoke Exposure: Past Smokeless Tobacco: Never Alcohol Use Standard Drinks/Week Comments Never 0 (1 standard drink = 0.6 oz pur e alcohol) Child or Family Care Answer Date Record ed Do you have problems with on e of the following making it difficult for you to work, study, or receive health care? No 11/21/2023 Education Answer Date Recorded Are you interested in more education? Not on jenn e 07/26/2023 Are you concerned about learning? Not on file 07/26/2023 No 07/26/2023 No 07/26/2023 Food Answer Date Recorded Within the past 6 months we worried whether our food would run out before we got money to buy more. Never True 11/21/2023 Within the past 6 months the food we bought just didn't last and we didn't have enough money to get more. Never True Residential Stability Answer Date Recor ded What is your housing situation today? I have cristian sing 11/21/2023 How many times have you move d in the past 12 months? Zero (I did not move) 11/21/2023 Paying for Meds Answer Date Recorded Do you have trouble paying for medicines? No 11/21/2023 Paying Utility Bills Answer Date Record ed Do you have trouble paying your heating or elect ricity bill? No 11/21/2023 Transportation Answer Date Recorded Has the lack of transportati on kept you from medical appointments or from getting medications? No 11/21/2023 Unemployment Answer Date Recorded Are you currently unemployed or working on a part-time or temporary basis, and looking for work? No 07/25/2021 Digital Access Answer Date Recorded No 11/21/2023 Yes 11/21/2023 Do you have reliable internet access at home? Ye s 11/21/2023 Do you have a device (e.g., phone, tablet, computer) with a working camera? Yes 11/21/2023 Intimate Partner Violence Answer Date R ecorded Denied Basic Needs Not on file 11/21/2023 In the past 12 months have y ou been in a relationship with a person who hurts, threatens, or tries to control you? No 11/21/2023 Worried food would run out Not on file 11/20 In the past 12 months have y ou been in a relationship with a person who hurts, threatens, or tries to control you? No 11/21/2023 Comments No Sex and Gender Information Value Date Recorded Sex Assigned at Female 10/25/2020 8:18 AM EDT Legal Sex Female 7:31 PM EST Gender Identity Female 10/25/2020 8:18 AM EDT Sexual Orientation Straight 10/25/2020 8: 18 AM EDT Occupation Industry Job Start Date Job End Date Disability Not on file Not on file Not on file documented as of this encounter Plan of Treatment Upcoming Encounters Date Type Department Care Team (Late st Contact Info) Description 12/04/2024 Procedure Pass [facility] Echo Lab [address] [place] [address] 01/01/2025 9:30 AM EDT Appointment [facility] Echo Lab [address] [place] [address] Pooja Elam MD [address] [address] 01/08/2025 9:00 AM EDT Nurse Only [facility] 15 [facility] 201 [place] [address] Sivan Montgomery MD, MPH [address] [address] 04/01/2025 8:00 AM EST Office Visit [facility] Rheumatology [address] [place] [address] Alma Delia Castro MD [address] [place] [address], [address] [place] [address] [email or web address] 05/15/2025 1:20 PM EST Office Visit [facility] [address], [address] [place] [address] Juan Burns MD 22 [facility], [address] [place] [address] 05/26/2025 8:00 AM EST Office Visit [facility] [address] [place] [address] Pooja Elam MD 15 [facility] [address] [place] [address] 06/08/2025 9:00 AM EST Office Visit [facility] [address] [place] [address] Santa Lewis MD 22 [facility], 1st [place] [address] 06/15/2025 9:00 AM EST Office Visit [facility] [address] Floor, [address] [place] [address] Anup Ward MD, MS 22 [facility], [address] [place] [address] 11/24/2025 9:00 AM EDT Office Visit [facility] [address] [place] [address] oPoja Elam MD 15 [facility] [address] [place] [address] documented as of this encounter Procedures Procedure Name Priority Date/Time Associated Diagnosis Comments XR TIBIA FIBULA 2 VIEWS (LEFT) Urgent/patient waiting 02/23/2021 8:04 PM EST Sprain of left ankle, unspecified ligament, initial encounter documented in this encounter Results * XR Tibia Fibula 2 Views (Left) (02/23/2021 8:04 PM EST) Anatomical Region Laterality Modality Leg Left Computed Radiogr aphy 02/23/2021 8:30 PM EST Impressions 02/23/2021 8:33 PM EST Cortical avulsion fracture at the lateral malleolus tip. Narrative 02/23/2021 8:33 PM EST XR ANKLE 3 OR MORE VIEWS (LEFT), XR TIBIA FIBULA 2 VIEWS (LEFT) COMPARISON: None. FINDINGS: Cortical lucency at the lateral malleolus tip. Preserved mortise alignment. Degenerative change at the knee including chondrocalcinosis. Mild soft tissue swelling around the lateral ankle. Procedure Note Beto Gomes MD, MPH - 02/23/2021 XR ANKLE 3 OR MORE VIEWS (LEFT), XR TIBIA FIBULA 2 VIEWS (LEFT) COMPARISON: None. FINDINGS: Cortical lucency at the lateral malleolus tip. Preserved mortisealignment. Degenerative change at the knee including chondrocalcinosis.Mild soft tissue swelling around the lateral ankle. IMPRESSION: Cortical avulsion fracture at the lateral malleolus tip. Leigh Ann JOSHI IMG XR LOWER EXTREMITY Final Result documented in this encounter Visit Diagnoses Not on filedocumented in this encounter Additional Health Concerns Assessment Noted Time PHQ-2 Depression Total Score: 0 09/24/19 19 9:43 AM EDT documented as of this encounter Care Teams Beam Saw Operator Relationship Specialty Start Date End Date Sivan Montgomery MD, MPH [address] [place] [id number] [email or web address] PCP - General Family Medicine 08/20/20 Ruy Darling MD [address] [place] [address] [email or web address] Historical LMR Provider 01/30/17 12/23/23 Adin Becerra MD [email or web address] Historical LMR Provider 01/30/17 02/19/22 Kathleen Lopez MD [address] [place] [address], [address] [place] [address] Historical LMR Provider 01/30/17 Weston Hamilton DO [address] [address] Historical LMR Provider 01/30/1702/19 Santa Lewis MD 22 [facility], 1st [place] [address] Endocrinology 10/26/20 documented as of this encounter Additional Source Comments The information contained in this document represents components of the legal health record. It is not the complete legal health record.[facility]
--- OUTSIDE RECORDS SUMMARY | 2021-02-23 20:51 | XMS_ITS | Encounter Summary ---
Author Organization [facility] Address [address] [place] [address] Phone Care Team Providers Care Manager Nursing Home Name Role Phone Ruy Darling MD Unavailable [phone] Adin Becerra MD Unavailable [email or web address] Kathleen Lopez MD Unavailable Weston Hamilton DO Unavailable [phone] Sivan Montgomery MD, MPH Primary Care Provid er Satna Lewis MD Unavailable [phone] Encounter Details Date Type Department Care Team (Late st Contact Info) Description 02/23/2021 7:51 PM EST Hospital Encounter [facility] Ur[facility] Care 12 [place] [address] Leigh Ann Whalen PA 12 [place] [address] [email or web address] Social History Tobacco Use Types Packs/Day [...] st Contact Info) Description 12/04/2024 Procedure Pass [facility] Echo Lab 30 [place] [address] 01/01/2025 9:30 AM EDT Appointment [facility] Echo Lab 30 [place] [address] Pooja Elam MD [address] [address] 01/08/2025 9:00 AM EDT Nurse Only [facility] 15 [facility] 201 [place] [address] Sivan Montgomery MD, MPH [address] [address] 04/01/2025 8:00 AM EST Office Visit [facility] Rheumatology [address] [place] [address] Alma Delia Castro MD [address] [place] [address], [address] [place] [address] [email or web address] 05/15/2025 1:20 PM EST Office Visit [facility] [address], [address] [place] [address] Juan Burns MD 22 [facility], [address] [place] [address] 05/26/2025 8:00 AM EST Office Visit [facility] [address] [place] [address] Pooja Elam MD 15 [facility] [address] [place] [address] 06/08/2025 9:00 AM EST Office Visit [facility] [address] [place] [address] Santa Lewis MD 22 [facility], 1st [place] [address] 06/15/2025 9:00 AM EST Office Visit [facility] [address], [address] [place] [address] Anup Ward MD, MS 22 [facility], [address] [place] [address] 11/24/2025 9:00 AM EDT Office Visit [facility] [address] [place] [address] Pooja Elam MD 15 [facility] [address] [place] [address] documented as of this encounter Procedures Procedure [...] documented as of this encounter Care Teams Manager Nursing Home Relationship Specialty Start Date End Date Sivan Montgomery MD, MPH [address] [place] [phone] [email or web address] PCP - General Family Medicine 08/20/20 Ruy Darling MD [address] [place] [address] [email or web address] Historical LMR Provider 01/30/17 12/23/23 Adin Becerra MD [email or web address] Historical LMR Provider 01/30/17 02/19/22 Kathleen Lopez MD [address] [place] [address], [address] [place] [address] Historical LMR Provider 01/30/17 Weston Hamilton DO [address] [address] Historical LMR Provider 01/30/1702/19 Santa Lewis MD 22 [facility], 1st [place] [address] Endocrinology 10/26/20 documented as of this encounter Additional Source Comments The information contained in this document represents components of the legal health record. It is not the complete legal health record.[facility]
--- OUTSIDE RECORDS SUMMARY | 2024-12-08 09:00 | XMS_ITS | Encounter Summary ---
Author Organization [facility] Address [address] [facility] [address] [place] [address] Phone Care Team Providers Care Environmental Field Team Member Name Role Phone Kathleen Lopez MD Unavailable Sivan Montgomery MD, MPH Primary Care Provid er Santa Lewis MD Unavailable [phone] Alma Delia Castro MD Unavailable Archie Ramos MD Unavailable Sung Jane MD Unavai lable José Hernández MD Unavailable [phone] Ruy Darling MD Unavailable [phone] Encounter Details Date Type Department Care Team (Late st Contact Info) Description 12/08/2024 9:00 AM EDT Nurse Only [facility] [place] [facility] [address] [facility] [address] [place], [place] [phone] Sivan Montgomery MD, MPH [address] [facility] [address] [place], [place] [id number] [email or web address] Social History Tobacco Use Types Packs/Day Years [...] 12/04/2024 Procedure Pass [facility] [address] [place] [address] 01/01/2025 9:30 AM EDT Appointment [facility] Echo Lab [address] [place] [address] Pooja Elam MD [address] [address] 01/08/2025 9:00 AM EDT Nurse Only [facility] [place] [facility] 15 [facility] [address] [place] [address] Sivan Montgomery MD, MPH [address] [address] 04/01/2025 8:00 AM EST Office Visit [facility] Rheumatology [address] [place] [address] Alma Delia Castro MD [address] [facility], [facility] [address] [place] [address] [email or web address] 05/15/2025 1:20 PM EST Office Visit [facility] [address] Floor, [address] [place] [address] Juan Burns MD [address] [facility], [address] [place] [address] 05/26/2025 8:00 AM EST Office Visit [facility] Primary Care 15 [facility] 201 [place] [address] Pooja Elam MD [address] [address] 06/08/2025 9:00 AM EST Office Visit [facility] Center 22 [place] [address] Santa Lewis MD [address] [facility], 1st [place] [address] 06/15/2025 9:00 AM EST Office Visit [facility] [address] [facility] 3rd Floor, [address] [place] [address] Anup Ward MD, MS [address] [facility], [address] [address] [email or web address] 11/24/2025 9:00 AM EDT Office Visit [facility] [address] [facility] 201 [place] [address] Pooja Elam MD [address] [address] documented as of this encounter Visit Diagnoses Not on filedocumented in this encounter Administered Medications Active Administered Medications - up to 3 most recent administrations Medication Order MAR Action Action Date Dose Rate Site cyanocobalamin (VITAMIN B-12) 1,000 mcg/mL injection 1,000 mcg 1,000 mcg, Intramuscular, Every 30 days, First dose on Sun09/28/21 at 0945Indications:B12 deficiency Given 12/08/2024 9:04 AM EDT 1,000 mcg Right Deltoid Given 11/07/2024 9:04 AM EDT 1,000 mcg Le ft Deltoid Given 10/09/2024 8:53 AM EDT 1,000 mcg Le ft Deltoid documented in this encounter Additional Health Concerns Assessment Noted Time PHQ-2 Depression Total Score: 0 11/21/19 9:11 AM EDT documented as of this encounter Care Teams Environmental Field Team Member Relationship Specialty Start Date End Date Sivan Montgomery MD, MPH [address] [facility] [address] [place] [address] PCP - General Family Medicine 08/20/20 Kathleen Lopez MD [address] [facility], [address] [place] [address] Historical LMR Provider 01/30/17 Santa Lewis MD [address] [facility], 1st [place] [address] Endocrinology 10/26/20 Alma Delia Castro MD [address] [facility], [address] [place] [address] Rheumatology 02/20/22 Archie Ramos MD [address] [place] [address] [address] [place] [address] Orthopedic Surgery 12/24/23 Sung Jane MD [address] [place] [address] [address] [place] [address] Neurology 12/24/23 José Hernández MD [address] [place] [address] [address] [place] [address] Neurosurgery 12/24/23 Ruy Darling MD [address] [place] [address] [email or web address] Intensive Care 12/24/23 documented as of this encounter Additional Source Comments The information contained in this document represents components of the legal health record. It is not the complete legal health record.[facility]
--- NOTE | ~2024-12-09 | XR_ITS ---
EXAMINATION: XR SHOULDER 2 OR MORE VIEWS LEFT HISTORY: M25.512 - Pain in left shoulder COMPARISON: There are no prior studies available for comparison. FINDINGS: Two views of the left shoulder are submitted. The patient is status post placement of a humeral prosthesis. There is no fracture or dislocation. Alignment is anatomic. There is mild degenerative change of the AC joint. A spinal stimulator is seen in place. The soft tissues are unremarkable. XR/XR shoulder LT min 2V IMPRESSION: Status post humeral arthroplasty. Mild degenerative change of the AC joint. Electronically signed by: Anup Hwang MD 12/09/2024 07:54 AM EDT
--- OUTSIDE RECORDS SUMMARY | 2024-12-11 08:29 | XMS_ITS | Encounter Summary ---
Author Organization [facility] Address [address] [facility] [address] [place] [address] Phone Care Team Providers Care Linseed Oil Refiner Name Role Phone Weston Hamilton DO Primary Care Provider [phone] Ruy Darling MD Unavailable [phone] Adin Becerra MD Unavailable [email or web address] Kathleen Lopez MD Unavailable Weston Hamilton DO Unavailable [phone] Dionne Latif MD Unavailable [phone] Shelby Keenan DO Primary Care Provider [phone] Sivan Montgomery MD, MPH Primary Care Provid er Santa Lewis MD Unavailable [phone] Alma Delia Castro MD Unavailable [phone] Archie Ramos MD Unavailable [phone] Sung Jane MD Unavailable José Hernández MD Unavailable Ruy Darling MD Unavailable Reason for Referral * MRI/CAT Scan - Closed Specialty Diagnoses / Procedures Referred By Contac t Referred To Contact Radiology Diagnoses Radicular pain of lumbosacral region Procedures MRI Lumbar Spine Mario Laguerre MD Phone: tel: fax: [email or web address] Referral ID Status Reason Start Date Expiration Date Visits Re quested Visits Authorized [id number] Closed 02/13/2017 02/13/2018 1 1 Encounter Details Date Type Department Care Team (Late Contact Info) Description 02/13/2017 Ancillary Orders Virtual Department [address] [place] [address] Mario Laguerre MD [address] [place] [address] [id number] [email or web address] Radicular pain of lumbosacral region Social [...] 12/04/2024 Procedure Pass [facility] 30 [place] [address] 01/01/2025 9:30 AM EDT Appointment [facility] 30 [place] [address] Pooja Elam MD [address] [facility] [address] [place] [address] 01/08/2025 9:00 AM EDT Nurse Only Kera Dowling [facility] [address] [facility] [address] [place] [address] Sivan Montgomery MD, MPH [address] [facility] [address] [place] [address] 04/01/2025 8:00 AM EST Office Visit [facility] Rhe[facility] 22 [place] [address] Alma Delia Castro MD [address] [facility], [address] [place] [address] [email or web address] 05/15/2025 1:20 PM EST Office Visit [facility] [address] [facility] [address] [facility], [address] [place] [address] Juan Burns MD [address] [address] 05/26/2025 8:00 AM EST Office Visit [facility] [place] [facility] [address] [facility] [address] [place] [address] Pooja Elam MD 15 [facility] 201 [place] [address] 06/08/2025 9:00 AM EST Office Visit [facility] 22 [place] [address] Santa Lewis MD 22 [facility], 1st [place] [address] 06/15/2025 9:00 AM EST Office Visit [facility] [address] 3rd Floor, [address] [place] [address] Anup Ward MD, MS [address] [facility], [address] [place] [address] 11/24/2025 9:00 AM EDT Office Visit [facility] [place] [facility] [address] [facility] [address] [place] [address] Pooja Elam MD [address] [facility] [address] [place] [address] documented as of this encounter Results * MRI LUMBAR SPINE (BONE) WITHOUT CONTRAST (02/15/2017 7:54 PM EDT) Anatomical Region Laterality Modality L-spine Magnetic Resonan ce 02/15/2017 8:59 PM EDT Impressions 02/15/2017 9:18 PM EDT Overall, no significant changes from 01/29/2015. POS - [id number] Narrative 02/15/2017 9:18 PM EDT HISTORY: Worsening [...] back pain, history of lower back surgery [id number]. COMPARISON: MRI lumbar spine 01/29/2015, CT abdomen/pelvis [...] no significant changes from 01/29/2015. POS - [id number] Mario Laguerre MD IM MR XSPECIALTY Final Result documented in this encounter Visit Diagnoses Diagnosis Radicular pain of lumbosacral region Radicular pain of lumbosacral region documented in this encounter Care Teams Linseed Oil Refiner Relationship Specialty Start Date End Date Weston Hamilton DO PCP - General 10/14/13 07/10/18 Shelby Keenan DO [address] [place] [address] [email or web address] PCP - General Family Medicine 07/11/18 08/19/20 Sivan Montgomery MD, MPH [address] [place] [address] [email or web address] PCP - General Family Medicine 08/20/20 Ruy Darling MD [address] [place] [address] [email or web address] Historical LMR Provider 01/30/17 12/23/23 Adin Becerra MD [email or web address] Historical LMR Provider 01/30/17 02/19/22 Kathleen Lopez MD [address] [place] [address] [email or web address] Historical LMR Provider 01/30/17 Weston Hamilton DO [address] [place] [address] Historical LMR Provider 01/30/1702/19 [place] [address] [email or web address] Historical LMR Provider 01/30/17 10/24/20 Santa Lewis MD [address] [place] [address] [email or web address] Endocrinology 10/26/20 Alma Delia Castro MD [address] [place], [place] [address] [address] Rheumatology 02/20/22 Archie Ramos MD [address] [place] [address] [address] [place] [address] Orthopedic Surgery 12/24/23 Sung Jane MD [address] [place] [address] Neurology 12/24/23 José Hernández MD [address] [place] [address] [address] [place] [address] Neurosurgery 12/24/23 Ruy Darling MD [address] [place] [address] [email or web address] Intensive Care 12/24/23 documented as of this encounter Additional Source Comments The information contained in this document represents components of the legal health record. It is not the complete legal health record.[facility]
--- OUTSIDE RECORDS SUMMARY | 2024-12-11 08:29 | XMS_ITS | Clinical Summary ---
Author Organization [facility] Address [address] [place] [address] Phone Care Team Providers Care Cross Tie Cutter Name Role Phone Sivan Montgomery MD Primary [...] Active Immunizations Name Administration Dates Next Due [facility] SARS-CoV-2 COVID-19, mRNA, LNP-S, preservative free 07/26/2021,07/06/2020,06/10/2020 [...] Description 01/07/2025 7:30 AM EDT Office Visit [address] [place] [address] Izzy Walker, PA [address] [place] [phone] Health Maintenance Due Date Last Done Comments [...] TEST Routine 08/22/2023 HEMOGLOBIN A1C Routine 06/15/2023 [facility] DEXA AXIAL SKELETON Routine 05/17/2023 9:32 AM EST Other specified disorders of bone density and structure, left thigh URINE ALBUMIN CREATININE RATIO Routine 03/21/2023 LIPID PANEL Routine 11/20/2022 from Last 3 Months or Most Recently Relevant to Health Maintenance Results * MG Mammo Digital Screening w Phain bilat (04/07/2024 8:36 AM EST) Anatomical Region [...] Signed Date: 04/07/2024 17:17 ET Workstation ID: [id number] Transcribed By: Self Edit Transcribed Date: 04/07/2024 17:09 ET Narrative 04/07/2024 5:17 PM EST EXAM: SCREENING MAMMOGRAPHY, BILATERAL HISTORY: SCREENING. Surgical removal of benign tumor 11 o'clock position right breast COMPARISON: 04/05/2023, 03/29/2022, 09/20/2020 TECHNIQUE: Synthesized CC and MLO projections of each breast. Tomosynthesis of each breast in the CC and MLO projections. ADDITIONAL IMAGING: None Computer-aided detection was employed with the [employer] profound AI 3-D. TISSUE DENSITY: The breasts [...] None Computer-aided detection was employed with the [employer] profound AI 3-D. TISSUE DENSITY: The breasts [...] Signed Date: 04/07/2024 17:17 ET Workstation ID: [id number] Transcribed By: Self Edit Transcribed Date: 04/07/2024 [...] AM EST Narrative 05/17/2023 9:32 AM EST [facility] Diagnostic Imaging Department [address] [place], [place] [id number] Patient: MERON RDZ /Age/Sex: 1950 - 72 - F Unit#: [id number] Location/Status: SPDIMAM/REG CLI Mnemonic[facility] Ordering Physician: ALMA DELIA CASTRO MD [facility] Dexa Axial Skeleton - 05/17/23917 Report Status:Signed [...] probability of hip fracture of 3.5%. Code 27393 Dictating Physician: MELISSA RICHARDSON MD Electronically Signed by: MELISSA RICHARDSON MD Dic Date/Time: 05/17/23929 Sign date/Time: 05/17/23931 Procedure Note Melissa Richardson MD - 12/03/2023 [facility] Diagnostic Imaging Department [address] [place] [address] Patient: MERON RDZ Alexus Arevalo./Age/Sex: 1950 - 72 -F Unit#: [id number] Location/Status: SPDIMAM/REG CLI Mnemonic[facility] Ordering Physician: ALMA DELIA CASTRO MD [facility] Dexa Axial Skeleton - 05/17/23917 Report Status:Signed [...] density of the femurs bilaterally is 0.956 gm/td5nxmyi is 95% of that of young normals [...] probability of hip fracture of 3.5%. Code 76328 Dictating Physician: MELISSA RICHARDSON MD Electronically Signed [...] Maintenance Insurance [employer] Care Teams Cross Tie Cutter Relationship Specialty Start Date End Date Sivan Montgomery MD [address] [place] [address] [place] [address] PCP - General Family Medicine 06/17/24
--- OUTSIDE RECORDS SUMMARY | 2024-12-11 08:29 | XMS_ITS | Encounter Summary ---
Author Organization [facility] Address [address] [facility] [address] [place] [address] Phone Care Team Providers Care Bullet Charging Machine Operator Name Role Phone Weston Hamilton DO Primary Care Provider Ruy Darling MD Unavailable [phone] Adin Becerra MD Unavailable [email or web address] Kathleen Lopez MD Unavailable Weston Hamiltno DO Unavailable [phone] Dionne Latif MD Unavailable Shelby Keenan DO Primary Care Provider [phone] Sivan Montgomery MD, MPH Primary Care Provid er Santa Lewis MD Unavailable [phone] Alma Delia Castro MD Unavailable Archie Ramos MD Unavailable Sung Jane MD Unavailable José Hernández MD Unavailable Ruy Darling MD Unavailable [phone] Encounter Details Date Type Department Care Team (Latest Contact Info) Description 07/11/2017 Transcribe Orders [facility] [address] [place] [address] Ashwin Almonte MD [address] [facility] [place] [address] [email or web address] Weakness (Primary Dx); Nonintractable headache, unspecified [...] st Contact Info) Description 12/04/2024 Procedure Pass [facility] Echo Lab 30 [place] [address] 01/01/2025 9:30 AM EDT Appointment [facility] Echo Lab 30 [place] [address] Pooja Elam MD [address] [address] 01/08/2025 9:00 AM EDT Nurse Only [facility] [facility] [address] [address] Sivan Montgomery MD, MPH [address] [address] 04/01/2025 8:00 AM EST Office Visit [facility] Rheumatology [address] [place] [address] Alma Delia Castro MD 22 [facility], [address] [place] [address] [email or web address] 05/15/2025 1:20 PM EST Office Visit [facility] [address] 3rd Floor, [address] [place] [address] Juan Burns MD [address] [facility], [address] [place] [address] 05/26/2025 8:00 AM EST Office Visit [facility] [address] [facility] [address] [place] [address] Pooja Elam MD [address] [place] [address]. 201 [place] [address] 06/08/2025 9:00 AM EST Office Visit [facility] 22 [place] [address] Santa Lewis MD 22 [facility], 1st [place] [address] 06/15/2025 9:00 AM EST Office Visit [facility] [address] 3[address] Floor, [address] [place] [address] Anup Ward MD, MS 22 [facility], [address] [place] [address] 11/24/2025 9:00 AM EDT Office Visit [facility] [address] [facility] [address] [place] [address] Pooja Elam MD 15 [facility] [address] [place] [address] [email or web address] documented as of this encounter Results * Sedimentation rate (ESR) (07/11/2017 3:15 PM EDT) ESR 16 0 - 30 mm/h [facility] Blood 07/11/2017 3:15 PM EDT 07/11/2017 3:20 PM EDT us Ashwin Almonte MD LAB BLOOD ORDERABLES Final R esult [facility] 30 [place] [address] documented in this encounter Visit Diagnoses Diagnosis Weakness- Primary Other malaise and fatigue Nonintractable headache, unspecified chronicity pattern, unspecified headache type documented in this encounter Care Teams Bullet Charging Machine Operator Relationship Specialty Start Date End Date Weston Hamilton DO PCP - General 10/14/13 07/10/18 Shelby Keenan DO [address] [place] [address] [email or web address] PCP - General Family Medicine 07/11/18 08/19/20 Sivan Montgomery MD, MPH [address] [place] [address] [email or web address] PCP - General Family Medicine 08/20/20 Ruy Darling MD [address] [place] [address] [email or web address] Historical LMR Provider 01/30/17 12/23/23 Adin Becerra MD [email or web address] Historical LMR Provider 01/30/17 02/19/22 Kathleen Lopez MD 22 [facility], [address] [place] [address] Historical LMR Provider 01/30/17 Weston Hamilton DO [address] [place] [address] [address] [place] [address] Historical LMR Provider 01/30/1702/19 Dion[place] [address] [email or web address] Historical LMR Provider 01/30/17 10/24/20 Santa Lewis MD 22 [facility], 1st [place] [address] Endocrinology 10/26/20 Alma Delia Castro MD 22 [facility], [address] [place] [address] Rheumatology 02/20/22 Archie Ramos MD [address] [place] [address] [address] [place] [address] Orthopedic Surgery 12/24/23 Sung Jane MD [address] [place] [address] [address] [place] [address] Neurology 12/24/23 José Hernández MD [address] [place] [address] [address] [place] [address] Neurosurgery 12/24/23 Ruy Darling MD [address] [place] [address] [email or web address] Intensive Care 12/24/23 documented as of this encounter Additional Source Comments The information contained in this document represents components of the legal health record. It is not the complete legal health record.[facility]
--- OUTSIDE RECORDS SUMMARY | 2024-12-11 08:29 | XMS_ITS | Encounter Summary ---
Author Organization [facility] Address [address] [facility] [address] [place] [address] Phone Care Team Providers Care Metaphysics Teacher Name Role Phone Weston Hamilton DO Primary Care Provider Ruy Darling MD Unavailable [phone] Adin Becerra MD Unavailable [email or web address] Kathleen Lopez MD Unavailable Weston Hamilton DO Unavailable [phone] Dionne Latif MD Unavailable Shelby Keenan DO Primary Care Provider [phone] Sivan Montgomery MD, MPH Primary Care Provid er Santa Lewis MD Unavailable [phone] Alma Delia Castro MD Unavailable Archie Ramos MD Unavailable Sung Jane MD Unavailable José Hernández MD Unavailable Ruy Darling MD Unavailable [phone] Encounter Details Date Type Department Care Team (Latest Contact Info) Description 04/30/2017 Ancillary Orders [facility] [address] [place] [address] Quin Kendall MD [address] [place] [address] Orthopedics & Sports Medicine, [place] [address] [email or web address] Shoulder pain, unspecified chronicity, unspecified [...] 12/04/2024 Procedure Pass [facility] 30 [place] [address] 01/01/2025 9:30 AM EDT Appointment [facility] [address] [place] [address] Pooja Elam MD [address] [address] 01/08/2025 9:00 AM EDT Nurse Only [facility] [address] [address] Sivan Montgomery MD, MPH [address] [address] 04/01/2025 8:00 AM EST Office Visit [facility] Rheumatology 22 [place] [address] Alma Delia Castro MD 22 [facility], [address] [place] [address] [email or web address] 05/15/2025 1:20 PM EST Office Visit [facility] 22 [facility] 3rd Floor, [address] [place] [address] Juan Burns MD 22 [facility], [address] [place] [address] 05/26/2025 8:00 AM EST Office Visit [facility] [address] [facility] [address] [place] [address] Pooja Elam MD [address] [place] [address]. 201 [place] [address] 06/08/2025 9:00 AM EST Office Visit [facility] 22 [place] [address] Santa Lewis MD 22 [facility], 1st [place] [address] 06/15/2025 9:00 AM EST Office Visit [facility] [address] [place] [address] Dr 3rd Floor, [address] [place] [address] Anup Ward MD, MS 22 [facility], [address] [place] [address] 11/24/2025 9:00 AM EDT Office Visit [facility] [address] [facility] [address] [place] [address] Pooja Elam MD 15 [facility] [address] [place] [address] [email or web address] Pending Results Name Type Priority Associated Diagnoses [...] laterality documented in this encounter Care Teams Metaphysics Teacher Relationship Specialty Start Date End Date Weston Hamilton DO PCP - General 10/14/13 07/10/18 Shelby Keenan DO [address] [place] [address] [email or web address] PCP - General Family Medicine 07/11/18 08/19/20 Sivan Montgomery MD, MPH [address] [address] [email or web address] PCP - General Family Medicine 08/20/20 Ruy Darling MD [address] [place] [address] [email or web address] Historical LMR Provider 01/30/17 12/23/23 Adin Becerra MD [email or web address] Historical LMR Provider 01/30/17 02/19/22 Kathleen Lopez MD 22 [facility], [address] [place] [address] [email or web address] Historical LMR Provider 01/30/17 Weston Hamilton DO [address] [facility] [address] [place] [address] Historical LMR Provider 01/30/1702/19 [place] [address] [email or web address] Historical LMR Provider 01/30/17 10/24/20 Santa Lewis MD 22 [facility], 1st [place] [address] Endocrinology 10/26/20 Alma Delia Castro MD 22 [facility], [address] [place] [address] Rheumatology 02/20/22 Archie Ramos MD [address] [place] [address] [address] [place] [address] Orthopedic Surgery 12/24/23 Sung Jane MD [address] [place] [address] 150 [place] [address] Neurology 12/24/23 José Hernández MD [address] [place] [address] [address] [place] [address] Neurosurgery 12/24/23 Ruy Darling MD [address] [place] [address] 2nd [place] [address] Intensive Care 12/24/23 documented as of this encounter Additional Source Comments The information contained in this document represents components of the legal health record. It is not the complete legal health record.[facility]
--- OUTSIDE RECORDS SUMMARY | 2024-12-11 08:29 | XMS_ITS | Encounter Summary ---
Author Organization [facility] Address [address] [facility] [address] [place] [address] Phone Care Team Providers Care Blood Bank Laboratory Technician Name Role Phone Weston Hamilton DO Primary Care Provider [phone] Ruy Darling MD Unavailable [phone] Adin Becerra MD Unavailable [email or web address] Kathleen Lopez MD Unavailable Weston Hamilton DO Unavailable [phone] Dionne Latif MD Unavailable [phone] Shelby Keenan DO Primary Care Provider [phone] Sivan Montgomery MD, MPH Primary Care Provid er Santa Lewis MD Unavailable [phone] Alma Delia Castro MD Unavailable Archie Ramos MD Unavailable Sung Jane MD Unavailable José Hernández MD Unavailable Ruy Darling MD Unavailable [phone] Encounter Details Date Type Department Care Team (Late st Contact Info) Description 08/13/2017 Procedure Pass [place] Admitting Dept - Virtual Department [address] [place] [address] Social History Tobacco Use Types Packs/Day Years [...] 12/04/2024 Procedure Pass [facility] [address] [place] [address] 01/01/2025 9:30 AM EDT Appointment [facility] [address] [place] [address] oPoja Elam MD [address] [address] 01/08/2025 9:00 AM EDT Nurse Only [facility] 15 [facility] 201 [place] [address] Sivan Montgomery MD, MPH 15 [facility] 201 [place] [address] 04/01/2025 8:00 AM EST Office Visit [facility] Rheumatology [address] [place] [address] Alma Delia Castro MD 22 [facility], [facility] 203 [place] [address] [email or web address] 05/15/2025 1:20 PM EST Office Visit [facility] [address] 3rd Floor, [address] [place] [address] Juan Burns MD 22 [facility], [address] [place] [address] 05/26/2025 8:00 AM EST Office Visit [facility] Primary Care [address] [facility] [address] [place] [address] Pooja Elam MD 15 [facility]. [address] [place] [address] 06/08/2025 9:00 AM EST Office Visit [facility] 22 [place] [address] Santa Lewis MD 22 [facility], 1st [place] [address] 06/15/2025 9:00 AM EST Office Visit [facility] 22 [facility] 3rd Floor, [address] [place] [address] Anup Ward MD, MS 22 [facility], [address] [address] 11/24/2025 9:00 AM EDT Office Visit [facility] Primary Care [address] [facility] [address] [place] [address] Pooja Elam MD [address] [address] documented as of this encounter Visit Diagnoses Not on filedocumented in this encounter Care Teams Blood Bank Laboratory Technician Relationship Specialty Start Date End Date Weston Hamilton DO PCP - General 10/14/13 07/10/18 Shelby Keenan DO [address] [place] [address] [email or web address] PCP - General Family Medicine 07/11/18 08/19/20 Sivan Montgomery MD, MPH [address] [place] [address] [email or web address] PCP - General Family Medicine 08/20/20 Ruy Darling MD [address] [place] [address] [email or web address] Historical LMR Provider 01/30/17 12/23/23 Adin Becerra MD [email or web address] Historical LMR Provider 01/30/17 02/19/22 Kathleen Lopez MD [address] [place] [address] [email or web address] Historical LMR Provider 01/30/17 Weston Hamilton DO [address] [place] [address] Historical LMR Provider 01/30/1702/19 [place] [address] [email or web address] Historical LMR Provider 01/30/17 10/24/20 Santa Lewis MD [address] [place] [address], [address] [place] [address] Endocrinology 10/26/20 Alma Delia Castro MD 22 [facility], [address] [place] [address] Rheumatology 02/20/22 Archie Ramos MD [address] [place] [address] [address] [place] [address] Orthopedic Surgery 12/24/23 Sung Jane MD [address] [place] [address] Neurology 12/24/23 José Hernández MD [address] [place] [address] [address] [place] [address] Neurosurgery 12/24/23 Ruy Darling MD [address] [place] [address] Intensive Care 12/24/23 documented as of this encounter Additional Source Comments The information contained in this document represents components of the legal health record. It is not the complete legal health record.[facility]
--- OUTSIDE RECORDS SUMMARY | 2024-12-11 08:29 | XMS_ITS | Encounter Summary ---
Author Organization [facility] Address [address] [facility] [address] [place] [address] Phone Care Team Providers Care Flooring Sales Manager Name Role Phone Weston Hamilton DO Primary Care Provider [phone] Ruy Darling MD Unavailable [phone] Adin Becerra MD Unavailable [email or web address] Kathleen Lopez MD Unavailable Weston Hamilton DO Unavailable [phone] Dionne Latif MD Unavailable [phone] Shelby Keenan DO Primary Care Provider [phone] Sivan Montgomery MD, MPH Primary Care Provid er Santa Lewis MD Unavailable [phone] Alma Delia Castro MD Unavailable Archie Ramos MD Unavailable Sung Jane MD Unavailable José Hernández MD Unavailable Ruy Darling MD Unavailable [phone] Encounter Details Date Type Department Care Team (Late st Contact Info) Description 02/19/2017 Procedure Pass [place] Scan - [facility] 30 [place] [address] Social History Tobacco Use Types Packs/Day Years [...] 12/04/2024 Procedure Pass [facility] 30 [place] [address] 01/01/2025 9:30 AM EDT Appointment [facility] 30 [place] [address] Pooja Elam MD [address] [address] 01/08/2025 9:00 AM EDT Nurse Only [facility] 15 [facility] 201 [place] [address] Sivan Montgomery MD, MPH 15 [facility] 201 [place] [address] 04/01/2025 8:00 AM EST Office Visit [facility] Rheumatology [address] [place] [address] Alma Delia Castro MD 22 [facility], [facility] 203 [place] [address] [email or web address] 05/15/2025 1:20 PM EST Office Visit [facility] [address] Floor, [address] [place] [address] Juan Burns MD 22 [facility], [address] [address] 05/26/2025 8:00 AM EST Office Visit [facility] Primary Care 15 [facility] 201 [place] [address] Pooja Elam MD 15 [facility]. [address] [place] [address] 06/08/2025 9:00 AM EST Office Visit [facility] 22 [place] [address] Santa Lewis MD 22 [facility], 1st [place] [address] 06/15/2025 9:00 AM EST Office Visit [facility] 22 [facility] 3rd Floor, [address] [place] [address] Anup Ward MD, MS 22 [facility], [address] [address] 11/24/2025 9:00 AM EDT Office Visit [facility] Primary Care 15 [facility] [address] [place] [address] Pooja Elam MD [address] [address] documented as of this encounter Visit Diagnoses Not on filedocumented in this encounter Care Teams Flooring Sales Manager Relationship Specialty Start Date End Date Weston Hamilton DO PCP - General 10/14/13 07/10/18 Shelby Keenan DO [address] [place] [address] [email or web address] PCP - General Family Medicine 07/11/18 08/19/20 Sivan Montgomery MD, MPH [address] [place] [address] [email or web address] PCP - General Family Medicine 08/20/20 Ruy Darling MD [address] [place] [address] [email or web address] Historical LMR Provider 01/30/17 12/23/23 Adin Becerra MD [email or web address] Historical LMR Provider 01/30/17 02/19/22 Kathleen Lopez MD [address] [place] [address] [email or web address] Historical LMR Provider 01/30/17 Weston Hamilton DO [address] [place] [address] Historical LMR Provider 01/30/1702/19 [place] [address] [email or web address] Historical LMR Provider 01/30/17 10/24/20 Santa Lewis MD [address] [place] [address], [facility] [place] [address] Endocrinology 10/26/20 Alma Delia Castro MD 22 [facility], [address] [place] [address] Rheumatology 02/20/22 Archie Ramos MD [address] [place] [address] [address] [place] [address] Orthopedic Surgery 12/24/23 Sung Jane MD [address] [place] [address] Neurology 12/24/23 José Hernández MD [address] [place] [address] [address] [place] [address] Neurosurgery 12/24/23 Ruy Darling MD [address] [place] [address] [email or web address] Intensive Care 12/24/23 documented as of this encounter Additional Source Comments The information contained in this document represents components of the legal health record. It is not the complete legal health record.[facility]
--- OUTSIDE RECORDS SUMMARY | 2024-12-11 08:29 | XMS_ITS | Encounter Summary ---
Author Organization [facility] Address [address] [facility] [address] [place] [address] Phone Care Team Providers Care Patient Care Director Name Role Phone Weston Hamilton DO Primary Care Provider Ruy Darling MD Unavailable [phone] Adin Becerra MD Unavailable [email or web address] Kathleen Lopez MD Unavailable Weston Hamilton DO Unavailable [phone] Dionne Latif MD Unavailable [phone] Shelby Keenan DO Primary Care Provider [phone] Sivan Montgomery MD, MPH Primary Care Provid er Santa Lewis MD Unavailable [phone] Alma Delia Castro MD Unavailable [phone] Archie Ramos MD Unavailable [phone] Sung Jane MD Unavailable José Hernández MD Unavailable Ruy Darling MD Unavailable [phone] Encounter Details Date Type Department Care Team (Late st Contact Info) Description 02/13/2017 Procedure Pass [facility], [facility] 30 [place] [address] Social History Tobacco Use Types Packs/Day Years [...] 12/04/2024 Procedure Pass [facility] 30 [place] [address] 01/01/2025 9:30 AM EDT Appointment [facility] 30 [place] [address] Pooja Elam MD [address] [place] [address] 01/08/2025 9:00 AM EDT Nurse Only [facility] [address] [address] Sivan Montgomery MD, MPH [address] [address] 04/01/2025 8:00 AM EST Office Visit [facility] Rheumatology [address] [place] [address] Alma Delia Castro MD [address] [place] [address], [address] [place] [address] [email or web address] 05/15/2025 1:20 PM EST Office Visit [facility] 22 [facility] 3rd Floor, [address] [place] [address] Juan Burns MD 22 [facility], [address] [place] [address] 05/26/2025 8:00 AM EST Office Visit [facility] 15 [facility] 201 [place] [address] Pooja Elam MD 15 [facility]. [address] [place] [address] 06/08/2025 9:00 AM EST Office Visit [facility] 22 [place] [address] Santa Lewis MD 22 [facility], 1st [place] [address] 06/15/2025 9:00 AM EST Office Visit [facility] [address] [facility] 3rd Floor, [address] [place] [address] Anup Ward MD, MS 22 [facility], [address] [place] [address] 11/24/2025 9:00 AM EDT Office Visit [facility] Care 15 [facility] 201 [place] [address] Pooja Elam MD 15 [facility] Viraj. [address] [place] [address] documented as of this encounter Visit Diagnoses Not on filedocumented in this encounter Care Teams Patient Care Director Relationship Specialty Start Date End Date Weston Hamilton DO PCP - General 10/14/13 07/10/18 Shelby Keenan DO [address] [place] [address] [email or web address] PCP - General Family Medicine 07/11/18 08/19/20 Sivan Montgomery MD, MPH [address] [place] [address] [email or web address] PCP - General Family Medicine 08/20/20 Ruy Darling MD [address] [place] [address] [email or web address] Historical LMR Provider 01/30/17 12/23/23 Adin Becerra MD [email or web address] Historical LMR Provider 01/30/17 02/19/22 Kathleen Lopez MD [address] [place] [address] [email or web address] Historical LMR Provider 01/30/17 Weston Hamilton DO [address] [place] [address] Historical LMR Provider 01/30/1702/19 [place] [address] [email or web address] Historical LMR Provider 01/30/17 10/24/20 Santa Lewis MD 22 [facility], 1st [place] [address] Endocrinology 10/26/20 Alma Delia Castro MD 22 [facility], [address] [place] [address] Rheumatology 02/20/22 Archie Ramos MD [address] [place] [address] 203 [place] [address] Orthopedic Surgery 12/24/23 Sung Jane MD [address] [place] [address] Neurology 12/24/23 José Hernández MD [address] [place] [address] [place] [address] Neurosurgery 12/24/23 Ruy Darling MD [address] [place] [address] Intensive Care 12/24/23 documented as of this encounter Additional Source Comments The information contained in this document represents components of the legal health record. It is not the complete legal health record.[facility]
--- OUTSIDE RECORDS SUMMARY | 2024-12-11 08:30 | XMS_ITS | Encounter Summary ---
Author Organization [facility] Address [address] [facility] [address] [place] [address] Phone Care Team Providers Care Isotope Technologist Name Role Phone Ruy Darling MD Unavailable [phone] Kathleen Lopez MD Unavailable Sivan Montgomery MD, MPH Primary Care Provid er Santa Lewis MD Unavailable [phone] Alma Delia Castro MD Unavailable [phone] Archie Ramos MD Unavailable [phone] Sung Jane MD [facility] José Hernández MD Unavailable [phone] Ruy Darling MD Unavailable [phone] Encounter Details Date Type Department Care Team (Late st Contact Info) Description 07/05/2022 Procedure Pass [facility] [address] [place] [address] Social History Tobacco Use Types Packs/Day [...] high school, GED, job training, learning the [place] language, technical skills, or developing parenting skills)? [...] 12/04/2024 Procedure Pass [facility] 30 [place] [address] 01/01/2025 9:30 AM EDT Appointment [facility] 30 [place] [address] Pooja Elam MD [address] [address] 01/08/2025 9:00 AM EDT Nurse Only [facility] Primary Care 15 [facility] [address] [place] [address] Sivan Montgomery MD, MPH 15 [facility]. [address] [place] [address] 04/01/2025 8:00 AM EST Office Visit [facility] Rheumatology 22 [place] [address] Alma Delia Castro MD 22 [facility], [address] [place] [address] [email or web address] 05/15/2025 1:20 PM EST Office Visit [facility] 22 [facility] 3rd Floor, [address] [place] [address] Juan Burns MD 22 [facility], [address] [place] [address] 05/26/2025 8:00 AM EST Office Visit [facility] Primary Care 15 [facility] [address] [place] [address] Pooja Elam MD [address] [address] 06/08/2025 9:00 AM EST Office Visit [facility] 22 [place] [address] Santa Lewis MD 22 [facility], 1st [place] [address] 06/15/2025 9:00 AM EST Office Visit [facility] 22 [facility] 3rd Floor, [address] [place] [address] Anup Ward MD, MS 22 [facility], [address] [place] [address] [email or web address] 11/24/2025 9:00 AM EDT Office Visit [facility] [place] 15 [facility] [address] [place] [address] Pooja Elam MD 15 [facility]. [address] [place] [address] [email or web address] documented as of this encounter Visit Diagnoses Not on filedocumented in this encounter Additional Health Concerns Assessment Noted Time PHQ-2 Depression Total Score: 0 09/24/19 19 9:43 AM EDT documented as of this encounter Care Teams Isotope Technologist Relationship Specialty Start Date End Date Sivan Montgomery MD, MPH 15 [facility]. [address] [place] [address] [email or web address] PCP - General Family Medicine 08/20/20 Ruy Darling MD [address] [place] [address] [email or web address] Historical LMR Provider 01/30/17 12/23/23 Kathleen Lopez MD 22 [facility], [address] [address] Historical LMR Provider 01/30/17 Santa Lewis MD 22 [facility], [address] [place] [address] Endocrinology 10/26/20 Alma Delia Castro MD 22 [facility], [address] [place] [address] Rheumatology 02/20/22 Archie Ramos MD [address] [place] [address] [address] [place] [address] Orthopedic Surgery 12/24/23 Sung Jane MD [address] [place] [address] Neurology 12/24/23 José Hernández MD [address] [place] [address] [address] [place] [address] Neurosurgery 12/24/23 Ruy Darling MD [address] [place] [address] [email or web address] Intensive Care 12/24/23 documented as of this encounter Additional Source Comments The information contained in this document represents components of the legal health record. It is not the complete legal health record.[facility]
--- OUTSIDE RECORDS SUMMARY | 2024-12-11 08:30 | XMS_ITS | Patient Health Record ---
Author Organization [facility] [place] Address [address] [place] [address] Care Team Providers Care Registered Dietetic Technician Name Role Phone Sivan Montgomery Primary Care Provider Unavail able Nabila Wright Unavailable [phone] Allergies Allergen (clinical drug ingredient) Drug/Non Drug [...] Referring Provider Last Name Ulises Referred Organization [facility] Referred Provider Nabila Wright Referred Address [address] 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 Vital Signs Blood pressure diastolic 80 mm Hg 12/01/2024 Height 5ft2in in 12/01/2024 Blood pressure systolic 124 mm Hg 12/01/2024 Weight 155 lbs 12/01/2024 BMI 28.35 kg/m2 12/01/2024 Procedures Procedure Date Ordered Date Performed Result Body Sit e 09574-KQQP SKIN LESIONS, OVER 4 12/01/2024 N/A Encounters Encounter Location Date Provider Diagnosis [facility] [address] 12/01/2024 Nabila Wright Pain in right foot M79.671 ; Plantar fibromatosis M72.2 ; 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 ; Type 2 diabetes mellitus with diabetic polyneuropathy E11.42 and Neuropathy G62.[address] [facility] [address] 09/10/2024 Nabila Wright Assessments Encounter Date Diagnosis [...] Treatment Pending Test Test Name Order Date 89969-QXHO SKIN LESIONS, OVER 4 12/02/19 25 Next Appt Details Provider Name:Nabila Wright , 03/05/2025 09:15:00 AM, [address] [place] [address], [phone], Insurance Providers Payer Name Payer Address Payer Phone Subscriber Number Group Number Insured Name Patient Relationship to Insured Coverage Start Date Coverage End Date [facility] [address] [place] [address] [phone] [id number] Meron Soria Self - patient is the [...]
--- OUTSIDE RECORDS SUMMARY | 2024-12-11 08:30 | XMS_ITS | Encounter Summary ---
Author Organization [facility] Address [address] [place] [address] Phone Care Team Providers Care Manager Emergency Name Role Phone Weston Hamilton DO Primary Care Provider Ryu Darling MD Unavailable [phone] Adin Becerra MD Unavailable [email or web address] Kathleen Lopez MD Unavailable Weston Hamilton DO Unavailable [phone] Dionne Latif MD Unavailable Shelby Keenan DO Primary Care Provider [phone] Sivan Montgomery MD, MPH Primary Care Provid er Santa Lewis MD Unavailable [phone] Alma Delia Castro MD Unavailable Archie Ramos MD Unavailable Sung Jane MD Unavailable José Hernández MD Unavailable Ruy Darling MD Unavailable [phone] Encounter Details Date Type Department Care Team (Late st Contact Info) Description 08/23/2017 Ancillary Orders [address] [address] Uriel Jenkins DO 4 [facility] Sports Medicine, [place] [address] [email or web address] Left shoulder pain, unspecified [...] 12/04/2024 Procedure Pass [facility] 30 [place] [address] 01/01/2025 9:30 AM EDT Appointment [facility] 30 [place] [address] Pooja Elam MD [address] [address] 01/08/2025 9:00 AM EDT Nurse Only [facility] [address] [address] Sivan Montgomery MD, MPH [address] [address] 04/01/2025 8:00 AM EST Office Visit [facility] Rhe[facility]ology [address] [place] [address] KlAlma Delia Barrett MD 22 [facility], [address] [place] [address] [email or web address] 05/15/2025 1:20 PM EST Office Visit [facility] 22 [facility] 3rd Floor, [address] [place] [address] Juan Burns MD 22 [facility], [address] [place] [address] 05/26/2025 8:00 AM EST Office Visit [facility] 15 [facility] 201 [place] [address] Pooja Elam MD [address] [place] [address]. 201 [place] [address] 06/08/2025 9:00 AM EST Office Visit [facility] 22 [place] [address] Santa Lewis MD 22 [facility], 1st [place] [address] 06/15/2025 9:00 AM EST Office Visit [facility] [address] 3rd Floor, [address] [place] [address] Anup Ward MD, MS 22 [facility], [address] [place] [address] 11/24/2025 9:00 AM EDT Office Visit [facility] [address] [place] [address] Pooja Elam MD 15 [facility] [address] [place] [address] [email or web address] documented as of this [...] chronicity documented in this encounter Care Teams Manager Emergency Relationship Specialty Start Date End Date Weston Hamilton DO PCP - General 10/14/13 07/10/18 Shelby Keenan DO [address] [place] [address] [email or web address] PCP - General Family Medicine 07/11/18 08/19/20 Sivan Montgomery MD, MPH [address] [place] [address] [email or web address] PCP - General Family Medicine 08/20/20 Ruy Darling MD [address] [place] [address] [email or web address] Historical LMR Provider 01/30/17 12/23/23 Adin Becerra MD [email or web address] Historical LMR Provider 01/30/17 02/19/22 Kathleen Lopez MD [address] [place] [address] [address] [place] [address] Historical LMR Provider 01/30/17 Weston Hamilton DO [address] [place] [address] 201 [place] [address] Historical LMR Provider 01/30/1702/19 [place] [address] [email or web address] Historical LMR Provider 01/30/17 10/24/20 Santa Lewis MD 22 [facility], 1st [place] [address] Endocrinology 10/26/20 Alma Delia Castro MD [address] [place] [address], [facility] 203 [place] [address] Rheumatology 02/20/22 Archie Ramos MD [address] [place] [address] 203 [place] [address] Orthopedic Surgery 12/24/23 Sung Jane MD [address] [place] [address] Neurology 12/24/23 José Hernández MD [address] [place] [place] [address] 101 [place] [address] Neurosurgery 12/24/23 Ruy Darling MD [address] [place] [address] [email or web address] Intensive Care 12/24/23 documented as of this encounter Additional Source Comments The information contained in this document represents components of the legal health record. It is not the complete legal health record.[facility]
--- OUTSIDE RECORDS SUMMARY | 2024-12-11 08:30 | XMS_ITS | Encounter Summary ---
Author Organization [facility] Address [address] [facility] [address] [place] [address] Phone Care Team Providers Care Electronic Tech Name Role Phone Weston Hamilton DO Primary Care Provider Ruy Darling MD Unavailable [phone] Adin Becerra MD Unavailable [email or web address] Kathleen Lopez MD Unavailable Weston Hamilton DO Unavailable [phone] Dionne Latif MD Unavailable [phone] Shelby Keenan DO Primary Care Provider [phone] Sivan Montgomery MD, MPH Primary Care Provid er Santa Lewis MD Unavailable [phone] Alma Delia Castro MD Unavailable Archie Ramos MD Unavailable [phone] Sung Jane MD Unavailable José Hernández MD Unavailable Ruy Darling MD Unavailable [phone] Encounter Details Date Type Department Care Team (Late st Contact Info) Description 08/23/2017 Ancillary Orders [facility] [address] [place] [address] Uriel Jenkins DO [address] [place] [address] Orthopedics & Sports Medicine, [place] [address] [email or web address] Social History Tobacco Use Types Packs/Day Years [...] 12/04/2024 Procedure Pass [facility] 30 [place] [address] 01/01/2025 9:30 AM EDT Appointment [facility] 30 [place] [address] Pooja Elam MD [address] [place] [address] [email or web address] 01/08/2025 9:00 AM EDT Nurse Only [facility] [address] [address] Sivan Montgomery MD, MPH [address] [address] [email or web address] 04/01/2025 8:00 AM EST Office Visit [facility] [address] [place] [address] Alma Delia Castro MD [address] [place] [address] 203 [place] [address] [email or web address] 05/15/2025 1:20 PM EST Office Visit [facility] 22 [facility] 3rd Floor, [address] [place] [address] Juan Burns MD [facility], [address] [place] [address] 05/26/2025 8:00 AM EST Office Visit [facility] 15 [facility] 201 [place] [address] Pooja Elam MD [address] [address] 06/08/2025 9:00 AM EST Office Visit [facility] 22 [place] [address] Santa Lewis MD [facility], 1st [place] [address] 06/15/2025 9:00 AM EST Office Visit [facility] 22 [facility] 3rd Floor, [address] [place] [address] Anup Ward MD, MS [facility], [address] [address] 11/24/2025 9:00 AM EDT Office Visit [facility] [address] [address] Pooja Elam MD [address] [address] [email or web address] documented as of this encounter Visit Diagnoses Not on filedocumented in this encounter Care Teams Electronic Tech Relationship Specialty Start Date End Date Weston Hamilton DO PCP - General 10/14/13 07/10/18 Shelby Keenan DO [address] [place] [address] [email or web address] PCP - General Family Medicine 07/11/18 08/19/20 Sivan Montgomery MD, MPH [address] [place] [address] [email or web address] PCP - General Family Medicine 08/20/20 Ruy Darling MD [address] [place] [address] [email or web address] Historical LMR Provider 01/30/17 12/23/23 Adin Becerra MD [email or web address] Historical LMR Provider 01/30/17 02/19/22 Kathleen Lopez MD [address] [place] [address] [email or web address] Historical LMR Provider 01/30/17 Weston Hamilton DO [address] [place] [address] Historical LMR Provider 01/30/1702/19 [place] [address] [email or web address] Historical LMR Provider 01/30/17 10/24/20 Santa Lewis MD [address] [facility], 1st [place] [address] Endocrinology 10/26/20 Alma Delia Castro MD [address] [facility], [address] [place] [address] Rheumatology 02/20/22 Archie Ramos MD [address] [place] [address] Orthopedic Surgery 12/24/23 Sung Jane MD [address] [place] [address] Neurology 12/24/23 José Hernández MD [address] [place] [address] [place] [address] Neurosurgery 12/24/23 Ruy Darling MD [address] [place] [address] Intensive Care 12/24/23 documented as of this encounter Additional Source Comments The information contained in this document represents components of the legal health record. It is not the complete legal health record.[facility]
--- OUTSIDE RECORDS SUMMARY | 2024-12-11 08:30 | XMS_ITS | Encounter Summary ---
Author Organization [facility] Address [address] [facility] [address] [place] [address] Phone Care Team Providers Care Net Software Engineer Name Role Phone Ruy Darling MD Unavailable [phone] Adin Becerra MD Unavailable [email or web address] Kathleen Lopez MD Unavailable Weston Hamilton DO Unavailable [phone] Dionne Latif MD Unavailable Shelby Keenan DO Primary Care Provider [phone] Sivan Montgomery MD, MPH Primary Care Provid er Santa Lewis MD Unavailable [phone] Alma Delia Castro MD Unavailable Archie Ramos MD Unavailable Sung Jane MD Unavailable José Hernández MD Unavailable Ruy Darling MD Unavailable [phone] Encounter Details Date Type Department Care Team (Latest Contact Info) Description 06/11/[address] [facility] [address] [id number] Bridger Max MD [address] [place] [address] [email or web address] Abnormal LFTs (Primary Dx) Social History Tobacco [...] 12/04/2024 Procedure Pass [facility] 30 [place] [address] 01/01/2025 9:30 AM EDT Appointment [facility] 30 [place] [address] Pooja Elam MD [address] [address] [email or web address] 01/08/2025 9:00 AM EDT Nurse Only [facility] 15 [facility] 201 [place] [address] Sivan Montgomery MD, MPH [address] [address] [email or web address] 04/01/2025 8:00 AM EST Office Visit [facility] Rheumatology [address] [place] [address] Alma Delia Castro MD 22 [facility], [facility] 203 [place] [address] [email or web address] 05/15/2025 1:20 PM EST Office Visit [facility] [address] 3rd Floor, [address] [place] [address] Juan Burns MD 22 [facility], [address] [place] [address] 05/26/2025 8:00 AM EST Office Visit [facility] [address] [place] [address] Pooja Elam MD [address] [address] 06/08/2025 9:00 AM EST Office Visit [facility] [address] [place] [address] Santa Lewis MD 22 [facility], 1st [place] [address] 06/15/2025 9:00 AM EST Office Visit [facility] 22 [facility] 3rd Floor, [address] [place] [address] Anup Ward MD, MS 22 [facility], [address] [place] [address] 11/24/2025 9:00 AM EDT Office Visit [facility] Primary [facility] [address] [place] [address] Pooja Elam MD [address] [address] documented as of this encounter Results * LFTs (hepatic panel) (06/11/2019 9:35 AM EST) [facility] 107 39 - 117 U/L [facility] TOTAL BILIRUBIN 0.4 0.0 - 1.2 mg/dL [facility] DIRECT BILIRUBIN <0.2 0 - 0.3 mg/dL [facility] Bilirubin (Indirect) NOT CALCULATED 0 - 1.5 mg/dL [facility] AST 18 0 - 37 U/L [facility] ALT 23 0 - 40 U/L [facility] TOTAL PROTEIN 7.5 6.5 - 8.0 g/dL [facility] ALBUMIN 4.6 3.9 - 4.8 g/dL [facility] GLOBULIN 2.9 1 - 4.8 g/dL [facility] A/G Ratio 1.59 1.00 - 4.80 RATIO [facility] Blood 06/11/2019 9:35 AM EST 06/11/2019 9:39 AM EST us Bridger Max MD LAB BLOOD ORDERABLES Final Resul t [facility] 30 [place] [address] documented in this encounter Visit Diagnoses Diagnosis Abnormal LFTs- Primary documented in this encounter Additional Health Concerns Assessment Noted Time PHQ-2 Depression Total Score: 0 09/24/19 19 9:43 AM EDT documented as of this encounter Care Teams Net Software Engineer Relationship Specialty Start Date End Date Shelby Keenan DO [address] [place] [address] [email or web address] PCP - General Family Medicine 07/11/18 08/19/20 Sivan Montgomery MD, MPH [address] [place] [address] [email or web address] PCP - General Family Medicine 08/20/20 Ruy Darling MD [address] [place] [address] [email or web address] Historical LMR Provider 01/30/17 12/23/23 Adin Becerra MD [email or web address] Historical LMR Provider 01/30/17 02/19/22 Kathleen Lopez MD 22 [facility], [address] [place] [address] [email or web address] Historical LMR Provider 01/30/17 Weston Hamilton DO [address] [place] [address] 201 [place] [address] Historical LMR Provider 01/30/1702/19 [place] [address] [email or web address] Historical LMR Provider 01/30/17 10/24/20 Santa Lewis MD 22 [facility], 1st [place] [address] Endocrinology 10/26/20 Alma Delia Castro MD 22 [facility], [address] [place] [address] Rheumatology 02/20/22 Archie Ramos MD [address] [place] [address] 203 [place] [address] Orthopedic Surgery 12/24/23 Sung Jane MD [address] [place] [address] 150 [place] [address] Neurology 12/24/23 José Hernández MD [address] [place] [address] [address] [place] [address] Neurosurgery 12/24/23 Ruy Darling MD [address] [place] [address] [email or web address] Intensive Care 12/24/23 documented as of this encounter Additional Source Comments The information contained in this document represents components of the legal health record. It is not the complete legal health record.[facility]
--- OUTSIDE RECORDS SUMMARY | 2024-12-11 08:30 | XMS_ITS | Encounter Summary ---
Author Organization [facility] Address [address] [facility] [address] [place] [address] Phone Care Team Providers Care Brood Station Manager Name Role Phone Ryu Darling MD Unavailable [phone] Adin Becerra MD Unavailable [email or web address] Kathleen Lopez MD Unavailable Weston Hamilton DO Unavailable [phone] Dionne Latif MD Unavailable Shelby Keenan DO Primary Care Provider [phone] Sivan Montgomery MD, MPH Primary Care Provid er Santa Lewis MD Unavailable [phone] Alma Delia Castro MD Unavailable Archie Ramos MD Unavailable Sung Jane MD Unavailable José Hernández MD Unavailable Ruy Darling MD Unavailable [phone] Encounter Details Date Type Department Care Team (Late st Contact Info) Description 06/03/[address] [facility] [address] [place] [address] Weston Hamilton, DO 80 [facility] 101 [place] [address] Opioid type dependence, continuous (Primary Dx) Social [...] 12/04/2024 Procedure Pass [facility] 30 [place] [address] 01/01/2025 9:30 AM EDT Appointment [facility] Lab 30 [place] [address] Pooja Elam MD [address] [address] 01/08/2025 9:00 AM EDT Nurse Only [facility] [place] [facility] 15 [facility] 201 [place] [address] Sivan Montgomery MD, MPH 15 [facility] 201 [place] [address] 04/01/2025 8:00 AM EST Office Visit [facility] Rheumatology 22 [place] [address] Alma Delia Castro MD 22 [facility] 203 [place] [address] [email or web address] 05/15/2025 1:20 PM EST Office Visit [facility] [address] 3rd Floor, [address] [place] [address] Juan Burns MD 22 [facility], [address] [place] [address] 05/26/2025 8:00 AM EST Office Visit [facility] 15 [facility] [address] [place] [address] Pooja Elam MD 15 [facility] [address]aj. [address] [place] [address] 06/08/2025 9:00 AM EST Office Visit [facility] 22 [place] [address] Santa Lewis MD 22 [facility], 1st [place] [address] 06/15/2025 9:00 AM EST Office Visit [facility] [address] 3rd Floor, [address] [place] [address] Anup Ward MD, MS 22 [facility], [address] [place] [address] 11/24/2025 9:00 AM EDT Office Visit [facility] [address] [place] [address] Pooja Elam MD [address] [address] documented as of this encounter Results * Buprenorphine, urine (06/03/2019 3:15 PM EST) Buprenorphine Negative Cutoff: 5 NG/ML [facility] Comment: (NOTE) ADDITIONAL INFORMATION This test was developed and its performance characteristics determined by [facility] in a manner consistent with CLIA requirements. This test has not been cleared or approved by the U.S. Food and Drug Administration. Urine (Urine) 06/03/2019 3:1 5 PM EST 06/03/2019 3:25 PM EST [facility] URINE ORDERABLES Final Result Performing Organization Address [facility] Co de Phone Number [facility] [address] [place] [address] * Toxicology screen, urine (06/03/2019 3:15 PM EST) Pathologist [facility] URINE CANNABINOIDS NONE DETECTED NONE DETECTED [facility] Comment:Cutoff: 50 ng/mL URINE COCAINE METAB NONE DETECTED NONE DETECTED [facility] Comment:Cutoff: 300 ng/mL URINE AMPHETAMINES NONE DETECTED NONE DETECTED [facility] Comment:Cutoff: 1000 ng/mL URINE METHADONE NONE DETECTED NONE DETECTED [facility] Comment:Cutoff: 300 ng/mL URINE OPIATES NONE DETECTED NONE DETECTED [facility] Comment:Cutoff: 300 ng/mL URINE PHENCYCLIDINE NONE DETECTED NONE DETECTED [facility] Comment:Cutoff: 25 ng/mL URINE OXYCODONE NONE DETECTED NONE DETECTED [facility] Comment:Cutoff: 300 ng/ml URINE BARBITURATES NONE DETECTED NONE DETECTED [facility] Comment:Cutoff: 200 ng/mL URINE BENZODIAZEPINE NONE DETECTED NONE DETECTED [facility] Comment: Cutoff: 200 ng/mL INTERPRETATION FOR TOXICOLOGY PANEL: These results are unconfirmed and should be used for Medical Treatment purposes only. Urine (Urine) 06/03/2019 3:1 5 PM EST 06/03/2019 3:24 PM EST [facility] URINE ORDERABLES Final Result Performing Organization Address City/[facility] Co de Phone Number [facility] 30 [place] [address] documented in this encounter Visit Diagnoses Diagnosis Opioid type dependence, continuous- Primary documented in this encounter Additional Health Concerns Assessment Noted Time PHQ-2 Depression Total Score: 0 09/24/19 19 9:43 AM EDT documented as of this encounter Care Teams Brood Station Manager Relationship Specialty Start Date End Date Shelby Keenan DO [address] [place] [address] [email or web address] PCP - General Family Medicine 07/11/18 08/19/20 iSvan Montgomery MD, MPH [address] [place] [address] [email or web address] PCP - General Family Medicine 08/20/20 Ruy Darling MD [address] [place] [address] [email or web address] Historical LMR Provider 01/30/17 12/23/23 Adin Becerra MD [email or web address] Historical LMR Provider 01/30/17 02/19/22 Kathleen Lopez MD 22 [facility], [address] [place] [address] [email or web address] Historical LMR Provider 01/30/17 Weston Hamilton DO [address] [place] [address] Historical LMR Provider 01/30/1702/19 [place] [address] [email or web address] Historical LMR Provider 01/30/17 10/24/20 Santa Lewis MD 22 [facility], 1st [place] [address] Endocrinology 10/26/20 Alma Delia Castro MD 22 [facility], [address] [place] [address] Rheumatology 02/20/22 Archie Ramos MD [address] [place] [address] 203 [place] [address] Orthopedic Surgery 12/24/23 Sung Jane MD [address] [place] [address] Neurology 12/24/23 José Hernández MD [address] [place] [address] [place] [address] Neurosurgery 12/24/23 Ruy Darling MD [address] [place] [address] Intensive Care 12/24/23 documented as of this encounter Additional Source Comments The information contained in this document represents components of the legal health record. It is not the complete legal health record.[facility]
--- OUTSIDE RECORDS SUMMARY | 2024-12-11 08:30 | XMS_ITS | Encounter Summary ---
Author Organization [facility] Address [address] [place] [address] Phone Care Team Providers Care Psychiatric Secretary Name Role Phone Ruy Darling MD Unavailable [phone] Kathleen Lopez MD Unavailable Sivan Montgomery MD, MPH Primary Care Provid er Santa Lewis MD Unavailable [phone] Alma Delia Castro MD Unavailable Archie Ramos MD Unavailable Sung Jane MD Unavai lable José Hernández MD Unavailable Ruy Darling MD Unavailable [phone] Encounter Details Date Type Department Care Team (Latest Contact Info) Description 02/12/2023 Transcribe Orders Virtual Department 30 [place] [address] Mare Drake PA [address] [place] [address] [id number] Elevated LFTs (Primary Dx) Social History Tobacco [...] high school, GED, job training, learning the Haitian language, technical skills, or developing parenting skills)? [...] 12/04/2024 Procedure Pass [facility] 30 [place] [address] 01/01/2025 9:30 AM EDT Appointment [facility] 30 [place] [address] Pooja Elam MD [address] [address] 01/08/2025 9:00 AM EDT Nurse Only [facility] Primary Care [address] [address] Sivan Montgomery MD, MPH [address] [address] 04/01/2025 8:00 AM EST Office Visit [facility] Rheumatology [address] [place] [address] Alma Delia Castro MD [address] [facility], [address] [place] [address] [email or web address] 05/15/2025 1:20 PM EST Office Visit [facility] [address] 3rd Floor, [address] [place] [address] Juan Burns MD [address] [facility], [address] [place] [address] 05/26/2025 8:00 AM EST Office Visit [facility] Primary Care [address] [place] [address] Pooja Elam MD [address] [address] 06/08/2025 9:00 AM EST Office Visit [facility] [address] [place] [address] Santa Lewis MD [address] [facility], 1st [place] [address] 06/15/2025 9:00 AM EST Office Visit [facility] [address] [facility] 3rd Floor, [address] [place] [address] nAup Ward MD, MS [address] [facility], [address] [place] [address] 11/24/2025 9:00 AM EDT Office Visit [facility] [place] Primary Care [address] [facility] [address] [place] [address] Pooja Elam MD [address] [facility] [address] [place] [address] documented as of this encounter Results * [...] clinician's provided indication for this examination in [facility]:Outside Radiology Order; ELEVATED LFT'S TECHNIQUE: US Abdominal limited right upper quadrant. COMPARISON: December 05, 2022 FINDINGS: Liver: Mild fatty liver. No focal lesions. Main Portal Vein: Patent with normal direction of flow. Gallbladder: Normal. No gallstones or gallbladder wall thickening. Glass's Sign: Negative. Biliary: Normal. No intrahepatic or extrahepatic biliary ductaldilatation. The common bile duct measures 5 mm. IMPRESSION: Mild fatty liver. us Maer JOSHI IMG US ABDOMEN Final Resul t documented in this encounter Visit Diagnoses Diagnosis Elevated LFTs- Primary Other abnormal blood chemistry Elevated LFTs Other abnormal blood chemistry documented in this encounter Additional Health Concerns Assessment Noted Time PHQ-2 Depression Total Score: 0 09/24/19 19 9:43 AM EDT documented as of this encounter Care Teams Psychiatric Secretary Relationship Specialty Start Date End Date Sivan Montgomery MD, MPH [address] [facility] [address] [place] [address] [email or web address] PCP - General Family Medicine 08/20/20 Ruy Darling MD [address] [place] [address] [email or web address] Historical LMR Provider 01/30/17 12/23/23 Kathleen Lopez MD [address] [facility], [address] [place] [address] [email or web address] Historical LMR Provider 01/30/17 Santa Lewis MD [address] [facility], [address] [place] [address] Endocrinology 10/26/20 Alma Delia Castro MD [address] [facility], [address] [place] [address] Rheumatology 02/20/22 Archie Ramos MD [address] [place] [address] [address] [place] [address] Orthopedic Surgery 12/24/23 Sung Jane MD [address] [place] [address] Neurology 12/24/23 José Hernández MD [address] [place] [address] [address] [place] [address] Neurosurgery 12/24/23 Ruy Darling MD [address] [place] [address] Intensive Care 12/24/23 documented as of this encounter Additional Source Comments The information contained in this document represents components of the legal health record. It is not the complete legal health record.[facility]
--- OUTSIDE RECORDS SUMMARY | 2024-12-11 08:30 | XMS_ITS | Encounter Summary ---
Author Organization [facility] Address [address] [facility] [address] [place] [address] Phone Care Team Providers Care Spring Coiler Hand Name Role Phone Ruy Darling MD Unavailable [phone] Kathleen Lopez MD Unavailable Sivan Montgomery MD, MPH Primary Care Provid er Santa Lewis MD Unavailable [phone] Alma Delia Castro MD Unavailable Archie Ramos MD Unavailable Sung Jane MD Unavai lable José Hernández MD Unavailable [phone] Ruy Dar[place] MD Unavailable [phone] Encounter Details Date Type Department Care Team (Latest Contact Info) Description 11/20/2022 Transcribe Orders [facility] [address] [id number] Mare Drake PA 10 [place], [place] [phone] Gastroesophageal reflux disease, unspecified whether esophagitis present [...] high school, GED, job training, learning the Liberian language, technical skills, or developing parenting skills)? [...] 12/04/2024 Procedure Pass [facility] 30 [place] [address] 01/01/2025 9:30 AM EDT Appointment [facility] 30 [place] [address] Pooja Elam MD [address] [address] 01/08/2025 9:00 AM EDT Nurse Only [facility] Primary Care [address] [address] Sivan Montgomery MD, MPH [address] [address] 04/01/2025 8:00 AM EST Office Visit [facility] Rheumatology 22 [place] [address] Alma Delia Castro MD [address] [facility] [place] [address] [email or web address] 05/15/2025 1:20 PM EST Office Visit [facility] [address] [place] [address] 3rd Floor, [address] [place] [address] Juan Burns MD [address] [facility], [address] [place] [address] 05/26/2025 8:00 AM EST Office Visit [facility] Primary Care [address] [address] Pooja Elam MD [address] [address] 06/08/2025 9:00 AM EST Office Visit [facility] [address] [place] [address] Santa Lewis MD [address] [facility], 1st [place] [address] 06/15/2025 9:00 AM EST Office Visit [facility] [address] 3rd Floor, [address] [place] [address] Anup Ward MD, MS [address] [facility], [address] [place] [address] 11/24/2025 9:00 AM EDT Office Visit [facility] [place] Primary Care [address] [facility] [address] [place] [address] Pooja Elam MD [address] [facility] [address] [place] [address] documented as of this encounter Results * (ABNORMAL) Lipid panel (11/20/2022 10:20 AM EDT) HDL 36 mg/dL [facility] Comment: Interpretation <40 mg/dL: Low HDL cholesterol (major risk factor for CHD) Greater than or equal to 60 mg/dL: High HDL cholesterol ( negative risk factor for CHD) HDL - cholesterol is affected by a number of factors, e.g. smoking, excerise, hormones, sex and age. CHOLESTEROL 147 0 - 240 mg/dL [facility] TRIGLYCERIDES 203(H) 30 - 160 mg/dL [facility] LDL 70 50 - 129 mg/dL [facility] Comment: LDL levels in terms of risk for coronary heart disease: <100 mg/dL: Optimal 100-129 mg/dL: Near or above optimal 130-159 mg/dL: Borderline high 160-189 mg/dL: High >190 mg/dL: Very High CARDIAC RISK RATIO 4.1 3.3 - 4.4 C [facility] Blood 11/20/2022 10:2 0 AM EDT 11/20/2022 10:31 AM EDT us Mare JOSHI LAB BLOOD ORDERABLES Final Result [address] [address] * (ABNORMAL) Liver fibrosis test (11/20/2022 10:20 AM EDT) Fibrosis score 0.35 [facility] Interpretation (Fibrosis) SEE NOTE [facility] Comment: (NOTE) minimal fibrosis Fibro Test Score [...] Fibrosis Grade SEE NOTE Q [facility] Comment: (NOTE) Result: F1-F2 NECROINFLAMM SCORE 0.53 Q [facility] NECROINFLAMM GRADE A2 Q [facility] NECROINFLAMM INTERP SEE NOTE [facility] Comment: (NOTE) significant activity ActiTest Score (a) [...] A2 Macroglobulin 194 106 - 279 mg/dL [facility] Haptoglobin 130 43 - 212 mg/dL [facility] Apolipoprotein A1 137 101 - 198 mg/dL [facility] TOTAL BILIRUBIN 0.6 0.2 - 1.2 mg/dL [facility] GGT 43 3 - 65 U/L [facility] ALT 88(H) 6 - 29 U/L [facility] Specimen/Product ID [id number] [facility] Comments (Chemistry) SEE NOTE [facility] Comment: (NOTE) The reliability of results is dependent on compliance with the preanalytical and analytical conditions recommended by [employer]. The tests have to be deferred for: [...] The performance characteristics have been determined by [facility]. It has not been cleared or approved by the U.S. Food and Drug Administration. Performance characteristics refer to the analytical performance of the test. [employer], the associated logo, [employer] and all associated [employer] galvez are the registered trademarks of [employer]. All third libertarian galvez - (R) and (TM) - are the property of their respective owners. (C) 5090-2318 [employer]. All rights reserved. Blood 11/20/2022 10:2 0 AM EDT 11/20/2022 10:32 AM EDT us Mare JOS[facility] LAB BLOOD ORDERABLES Final Result ALEJO CASILLAS/EZRA [facility] [address] [place] [address], [facility] [phone] * (ABNORMAL) Comprehensive metabolic panel (11/20/2022 10:20 AM EDT) SODIUM 137 133 - 146 mmol/L [facility] POTASSIUM 3.6 3.3 - 5.1 mmol/L [facility] CHLORIDE 98 96 - 108 mmol/L [facility] CO2 25 21 - 35 mmol/L [facility] BUN 21(H) 6 - 19 mg/dL [facility] CREATININE 0.80 0.5 - 1.5 mg/dL [facility] GLUCOSE 134(H) 70 - 99 mg/dL [facility] ALBUMIN 4.6 3.9 - 4.8 g/dL [facility] TOTAL PROTEIN 7.4 6.5 - 8.0 g/dL [facility] CALCIUM 10.2 8.4 - 10.3 mg/dL [facility] ALKALINE PHOSPHATASE 149(H) 39 - 117 U/L [facility] TOTAL BILIRUBIN 0.5 0.0 - 1.2 mg/dL [facility] AST 49(H) 0 - 37 U/L [facility] ALT 98(H) 0 - 40 U/L [facility] GLOBULIN 2.8 1 - 4.8 g/dL [facility] EGFR 79 >59 mL/min/1.7 3m2 [facility] Comment:Estimated glomerular filtration rate calculated using the CKD-EPI refit equation. ANION GAP 18 10 - 20 mmol/L [facility] Blood 11/20/2022 10:2 0 AM EDT 11/20/2022 10:32 AM EDT us Mare JOSHI LAB BLOOD ORDERABLES Final Result [facility] 30 [place] [address] * (ABNORMAL) CBC and differential (11/20/2022 10:20 AM EDT) WBC 8.31 4.00 - 11.00 K/uL [facility] RBC 4.70 3.72 - 5.30 M/uL [facility] HGB 14.5 11.4 - 15.9 g/dL [facility] HCT 43.6 34.2 - 46.8 % [facility] PLT NA 140 - 430 K/uL [facility] Comment:Unable to obtain acc urate platelet count due to severe platelet clumping. Platelet count appears normal on slide MCV 92.8 78.0 - 97.0 fL [facility] MCH 30.9 25.0 - 33.0 pg [facility] MCHC 33.3 32.0 - 36.0 g/dL [facility] RDW 12.6 11.0 - 16.0 % [facility] MPV 13.3(H) 8.4 - 12.8 fl [facility] DIFF METHOD Auto [facility] NEUTS 63.2 43.0 - 75.0 % [facility] LYMPHS 25.4 18.2 - 47.4 % [facility] MONOS 6.4 4.00 - 11.00 % [facility] EOS 3.9 0.0 - 8.0 % [facility] BASOS 0.7 0.0 - 2.0 % [facility] Granulocytes, immature (%) 0.4 0.0 - 0.9 % [facility] ABSOLUTE NEUTS 5.26 1.80 - 7.70 K/uL [facility] ABSOLUTE LYMPHS 2.11 1.00 - 3.10 K/uL [facility] ABSOLUTE MONOS 0.53 0.20 - 0.80 K/uL [facility] ABSOLUTE EOS 0.32 0.00 - 0.80 K/uL [facility] ABSOLUTE BASOS 0.06 0.00 - 0.09 K/uL [facility] Granulocytes, immature 0.03 0.00 - 0.05 K/uL [facility] Blood 11/20/2022 10:2 0 AM EDT 11/20/2022 10:32 AM EDT us Mare JOSHI LAB BLOOD ORDERABLES Final Result [facility] 30 [place] [address] documented in this encounter Visit Diagnoses Diagnosis Gastroesophageal reflux disease, unspecified whether esophagitis present- Primary Hyperlipidemia, unspecified hyperlipidemia type documented in this encounter Additional Health Concerns Assessment Noted Time PHQ-2 Depression Total Score: 0 09/24/19 19 9:43 AM EDT documented as of this encounter Care Teams Spring Coiler Hand Relationship Specialty Start Date End Date Sivan Montgmoery MD, MPH [address] [facility] [address] [place] [address] [email or web address] PCP - General Family Medicine 08/20/20 Ruy Dar[place] MD [address] [place] [address] [email or web address] Historical LMR Provider 01/30/17 12/23/23 Kathleen Lopez MD [address] [facility], [facility] [address] [place] [address] [email or web address] Historical LMR Provider 01/30/17 Santa Lewis MD [address] [facility], 1st [place] [address] Endocrinology 10/26/20 Alma Delia Castro MD [address] [facility], [facility] 203 [place] [address] Rheumatology 02/20/22 Archie Ramos MD [address] [place] [address] 203 [place] [address] Orthopedic Surgery 12/24/23 Sung Jane MD [address] [place] [address] Neurology 12/24/23 José Hernández MD [address] [place] [address] [place] [address] Neurosurgery 12/24/23 Ruy Darling MD [address] [place] [address] [email or web address] Intensive Care 12/24/23 documented as of this encounter Additional Source Comments The information contained in this document represents components of the legal health record. It is not the complete legal health record.[facility]
--- OUTSIDE RECORDS SUMMARY | 2024-12-11 08:30 | XMS_ITS | Encounter Summary ---
Author Organization [facility] Address [address] [facility] [address] [place] [address] Phone Care Team Providers Care Music Autographer Name Role Phone Ruy Darling MD Unavailable [phone] Adin Becerra MD Unavailable [email or web address] Kathleen Lopez MD Unavailable Weston Hamilton DO Unavailable [phone] Dionne Latif MD Unavailable Sivan Montgomery MD, MPH Primary Care Provid er Santa Lewis MD Unavailable [phone] Alma Delia Castro MD Unavailable Archie Ramos MD Unavailable [phone] Sung Jane MD Unavailable José Hernández MD Unavailable Ruy Darling MD Unavailable Encounter Details Date Type Department Care Team (Latest Contact Info) Description 09/01/2020 Transcribe Orders [facility] Department 30 [place], [place] [phone] Ashwin Almonte MD [address] [place] [address], [address] [place] [address] [email or web address] White matter disease (Primary Dx); Weakness; [...] 12/04/2024 Procedure Pass [facility] 30 [place] [address] 01/01/2025 9:30 AM EDT Appointment [facility] 30 [place] [address] Pooja Elam MD [address] [address] [email or web address] 01/08/2025 9:00 AM EDT Nurse Only [facility] Primary Care 15 [facility] 201 [place] [address] Sivan Montgomery MD, MPH [address] [address] [email or web address] 04/01/2025 8:00 AM EST Office Visit [facility] Rheumatology [address] [place] [address] Alma Delia Castro MD 22 [facility], [address] [place] [address] [email or web address] 05/15/2025 1:20 PM EST Office Visit [facility] [address] 3rd Floor, [address] [place] [address] Juan Burns MD 22 [facility], [address] [place] [address] 05/26/2025 8:00 AM EST Office Visit [facility] Primary Care 15 [facility] [address] [place] [address] Pooja Elam MD 15 [facility]. [address] [place] [address] 06/08/2025 9:00 AM EST Office Visit [facility] 22 [place] [address] Santa Lewis MD 22 [facility], 1st [place] [address] 06/15/2025 9:00 AM EST Office Visit [facility] [address] 3rd Floor, [address] [place] [address] Anup Ward MD, MS 22 [facility], [address] [address] 11/24/2025 9:00 AM EDT Office Visit [facility] Primary Care [address] [place] [address] Pooja Elam MD 15 [facility]. [address] [place] [address] documented as of this encounter Visit Diagnoses Diagnosis White matter disease- Primary Weakness Other malaise and fatigue Numbness Disturbance of skin sensation documented in this encounter Additional Health Concerns Assessment Noted Time PHQ-2 Depression Total Score: 0 09/24/19 19 9:43 AM EDT documented as of this encounter Care Teams Music Autographer Relationship Specialty Start Date End Date Sivan Montgomery MD, MPH [address] [place] [address] [email or web address] PCP - General Family Medicine 08/20/20 Ruy Darling MD [address] [place] [address] [email or web address] Historical LMR Provider 01/30/17 12/23/23 Adin Becerra MD [email or web address] Historical LMR Provider 01/30/17 02/19/22 Kathleen Lopez MD [address] [place] [address] 102 [place] [address] [email or web address] Historical LMR Provider 01/30/17 Weston Hamilton DO [address] [place] [address] Historical LMR Provider 01/30/1702/19 [place] [address] [email or web address] Historical LMR Provider 01/30/17 10/24/20 Santa Lewis MD [address] [place] [address], [address] [place] [address] [email or web address] Endocrinology 10/26/20 Alma Delia Castro MD 22 [facility], [address] [place] [address] Rheumatology 02/20/22 Archie Ramos MD [address] [place] [address] [address] [place] [address] Orthopedic Surgery 12/24/23 Sung Jane MD [address] [place] [address] Neurology 12/24/23 José Hernández MD [address] [place] [address] [address] [place] [address] Neurosurgery 12/24/23 Ruy Darling MD [address] [place] [address] [email or web address] Intensive Care 12/24/23 documented as of this encounter Additional Source Comments The information contained in this document represents components of the legal health record. It is not the complete legal health record.[facility]
--- OUTSIDE RECORDS SUMMARY | 2024-12-11 08:31 | XMS_ITS | Encounter Summary ---
Author Organization [facility] Address [address] [facility] [address] [place] [address] Phone Care Team Providers Care Tallier Name Role Phone Ruy Darling MD Unavailable [phone] Adin Becerra MD Unavailable [email or web address] Kathleen Lopez MD Unavailable Weston [place] DO Unavailable [phone] Dionne Latif MD Unavailable [phone] Shelby Keenan DO Primary Care Provider [phone] Sivan Montgomery MD, MPH Primary Care Provid er Santa Lewis MD Unavailable [phone] Alma Delia Castro MD Unavailable [phone] Archie Ramos MD Unavailable [phone] Sung Jane MD Unavailable José Hernández MD Unavailable Ruy Darling MD Unavailable [phone] Encounter Details Date Type Department Care Team (Latest Contact Info) Description 09/04/2018 Transcribe Orders [facility] Department 30 [place], [place] [address] Bridger Max MD [address] [place] [address] [email or web address] Elevated LFTs (Primary Dx) Social History Tobacco [...] 12/04/2024 Procedure Pass [facility] 30 [place] [address] 01/01/2025 9:30 AM EDT Appointment [facility] 30 [place] [address] Pooja Elam MD [address] [place] [address] [email or web address] 01/08/2025 9:00 AM EDT Nurse Only [facility] 15 [facility] 201 [place] [address] Sivan Montgomery MD, MPH 15 [facility] 201 [place] [address] [email or web address] 04/01/2025 8:00 AM EST Office Visit [facility] Rheumatology [address] [place] [address] Alma Delia Castro MD [address] [facility], [address] [place] [address] [email or web address] 05/15/2025 1:20 PM EST Office Visit [facility] [address] 3rd Floor, [address] [place] [address] Juan Burns MD [address] [facility], [address] [place] [address] 05/26/2025 8:00 AM EST Office Visit [facility] Primary Care [address] [place] [address] Pooja Elam MD [address] [address] 06/08/2025 9:00 AM EST Office Visit [facility] [address] [place] [address] Santa [place] MD [address] [facility], 1st [place] [address] 06/15/2025 9:00 AM EST Office Visit [facility] [address] 3rd Floor, [address] [place] [address] Anup Ward MD, MS [address] [facility], [address] [place] [address] 11/24/2025 9:00 AM EDT Office Visit [facility] Primary Care [address] [place] [address] Pooja Elam MD 15 [facility]. [address] [place] [address] documented as of this encounter Results * US ABDOMEN LIMITED RIGHT UPPER QUADRANT (09/19/2018 7:54 AM EDT) Anatomical Region Laterality Modality Abdomen Ultrasound 09/19/2018 8:00 AM EDT Impressions 09/19/2018 8:03 AM EDT Diffuse increase in hepatic echogenicity consistent with hepatic steatosis with some fatty sparing by the gallbladder fossa. POS - [id number] Narrative 09/19/2018 8:03 AM EDT COMPARISON: CT [...] sparing by the gallbladder fossa. POS - [id number] Bridger Max MD IMG US ABDOMEN Final Result documented in this encounter Visit Diagnoses Diagnosis Elevated LFTs- Primary Other abnormal blood chemistry Elevated LFTs Other abnormal blood chemistry documented in this encounter Care Teams Tallier Relationship Specialty Start Date End Date Shelby Keenan DO [address] [place] [address] [email or web address] PCP - General Family Medicine 07/11/18 08/19/20 Sivan Montgomery MD, MPH [address] [place] [address] [email or web address] PCP - General Family Medicine 08/20/20 Ruy Darling MD [address] [place] [address] [email or web address] Historical LMR Provider 01/30/17 12/23/23 Adin Becerra MD [email or web address] Historical LMR Provider 01/30/17 02/19/22 Kathleen Lopez MD [address] [place] [address] [email or web address] Historical LMR Provider 01/30/17 Weston [place] DO [address] [place] [address] Historical LMR Provider 01/30/1702/19 [place] [address] [email or web address] Historical LMR Provider 01/30/17 10/24/20 Santa [place] MD [address] [place] [address] [place] [address] Endocrinology 10/26/20 Alma Delia Castro MD [address] [facility], [address] [place] [address] Rheumatology 02/20/22 Archie Ramos MD [address] [place] [address] [address] [place] [address] Orthopedic Surgery 12/24/23 Sung Jane MD [address] [place] [address] Neurology 12/24/23 José Hernández MD [address] [place] [address] [address] [place] [address] Neurosurgery 12/24/23 Ruy Darling MD [address] [place] [address] Intensive Care 12/24/23 documented as of this encounter Additional Source Comments The information contained in this document represents components of the legal health record. It is not the complete legal health record.[facility]
--- OUTSIDE RECORDS SUMMARY | 2024-12-11 08:31 | XMS_ITS | Encounter Summary ---
Author Organization [facility] Address [address] [facility] [address] [place] [address] Phone Care Team Providers Care Top Stitcher Name Role Phone Kathleen Lopez MD Unavailable Sivan Montgomery MD, MPH Primary Care Provid er Santa [place] MD Unavailable [phone] Alma Delia Castro MD Unavailable Archie Ramos MD Unavailable [phone] Sung Jane MD Unavai lable José Hernández MD Unavailable Ruy Darling MD Unavailable [phone] Encounter Details Date Type Department Care Team (Late st Contact Info) Description 11/17/2024 Telephone [facility] Center 22 [place], [place] [phone] Santa [place] MD 22 [facility], 1st [place] [address] Social History Tobacco Use Types Packs/Day Years [...] 12/04/2024 Procedure Pass [facility] 30 [place] [address] 01/01/2025 9:30 AM EDT Appointment [facility] 30 [place] [address] Pooja Elam MD [address] [place] [address] 01/08/2025 9:00 AM EDT Nurse Only [facility] Primary Care 15 [facility] [address] [place] [address] Sivan Montgomery MD, MPH 15 [facility]. 201 [place] [address] 04/01/2025 8:00 AM EST Office Visit [facility] Rheumatology 22 [place] [address] Alma Delia Castro MD 22 [facility], [address] [place] [address] [email or web address] 05/15/2025 1:20 PM EST Office Visit [facility] [address] [facility] 3rd Floor, [address] [place] [address] Juan Burns MD [address] [place] [address], [address] [place] [address] 05/26/2025 8:00 AM EST Office Visit [facility] Primary Care 15 [facility] 201 [place] [address] Pooja Elam MD [address] [address] 06/08/2025 9:00 AM EST Office Visit [facility] 22 [place] [address] Santa [place] MD 22 [facility], 1st [place] [address] 06/15/2025 9:00 AM EST Office Visit [facility] [address] [facility] 3rd Floor, [address] [place] [address] Anup Ward MD, MS 22 [facility], [address] [place] [address] 11/24/2025 9:00 AM EDT Office Visit [facility] Primary Care 15 [facility] [address] [place] [address] Pooja Elam MD 15 [facility] [address] [place] [address] documented as of this encounter Visit Diagnoses Not on filedocumented in this encounter Additional Health Concerns Assessment Noted Time PHQ-2 Depression Total Score: 0 11/21/19 24 9:11 AM EDT documented as of this encounter Care Teams Top Stitcher Relationship Specialty Start Date End Date Sivan [place] MD, MPH 15 [facility] [address] [place] [address] PCP - General Family Medicine 08/20/20 Kathleen Lopez MD 22 [facility], [address] [place] [address] Historical LMR Provider 01/30/17 Santa [place] MD 22 [facility], 1st [place] [address] Endocrinology 10/26/20 Alma Delia Castro MD 22 [facility], [address] [place] [address] Rheumatology 02/20/22 Archie Ramos MD [address] [place] [address] [address] [place] [address] Orthopedic Surgery 12/24/23 Sung Jane MD [address] [place] [address] Neurology 12/24/23 José Hernández MD [address] [place] [address] [address] [place] [address] Neurosurgery 12/24/23 Ruy Darling MD [address] [place] [address] [email or web address] Intensive Care 12/24/23 documented as of this encounter Additional Source Comments The information contained in this document represents components of the legal health record. It is not the complete legal health record.[facility]
--- OUTSIDE RECORDS SUMMARY | 2024-12-11 08:31 | XMS_ITS | Encounter Summary ---
Author Organization [facility] Address [address] [facility] [address] [place] [address] Phone Care Team Providers Care Zinc Miner Blasting Name Role Phone Ruy Darling MD Unavailable [phone] Adin Becerra MD Unavailable [email or web address] Kathleen Lopez MD Unavailable Weston [place] DO Unavailable [phone] Dionne Latif MD Unavailable Shelby Keenan DO Primary Care Provider [phone] Sivan Montgomery MD, MPH Primary Care Provid er Santa [place] MD Unavailable [phone] Alma Delia Castro MD Unavailable Archie Ramos MD Unavailable [phone] Sung Jane MD Unavailable José Hernández MD Unavailable Ruy Darling MD Unavailable [phone] Encounter Details Date Type Department Care Team (Latest Contact Info) Description 09/05/2018 Ancillary Orders Virtual Department 30 [place] [address] Ruy Santoyo, DO [address] [place] [address] Lumbar radiculopathy Social History Tobacco Use Types [...] Contact Info) Description 12/04/2024 Procedure Pass [facility] Echo Lab 30 [place] [address] 01/01/2025 9:30 AM EDT Appointment [facility] Echo Lab 30 [place] [address] Pooja Elam MD [address] [address] [email or web address] 01/08/2025 9:00 AM EDT Nurse Only [facility] 15 [facility] 201 [place] [address] Sivan Montgomery MD, MPH [address] [address] [email or web address] 04/01/2025 8:00 AM EST Office Visit [facility] [address] [place] [address] Alma Delia Castro MD 22 [facility], [facility] 203 [place] [address] [email or web address] 05/15/2025 1:20 PM EST Office Visit [facility] [address] 3[address] Floor, [address] [place] [address] Juan Burns MD 22 [facility], [address] [place] [address] 05/26/2025 8:00 AM EST Office Visit [facility] Primary Care 15 [facility] [address] [place] [address] Pooja Elam MD 15 [facility]. [address] [place] [address] 06/08/2025 9:00 AM EST Office Visit [facility] 22 [place] [address] Santa [place] MD 22 [facility], 1st [place] [address] 06/15/2025 9:00 AM EST Office Visit [facility] 22 [facility] 3rd Floor, [address] [place] [address] Anup Ward MD, MS 22 [facility], [address] [place] [address] 11/24/2025 9:00 AM EDT Office Visit [facility] Primary Care 15 [facility] [address] [place] [address] Pooja Elam MD [address] [address] documented as of this encounter Visit Diagnoses Diagnosis Lumbar radiculopathy Thoracic or lumbosacral neuritis or radiculitis, unspecified documented in this encounter Care Teams Zinc Miner Blasting Relationship Specialty Start Date End Date Shelby Keenan DO [address] [place] [address] [email or web address] PCP - General Family Medicine 07/11/18 08/19/20 Sivan Montgomery MD, MPH [address] [place] [address] [email or web address] PCP - General Family Medicine 08/20/20 Ruy Darling MD [address] [place] [address] [email or web address] Historical LMR Provider 01/30/17 12/23/23 Adin Becerra MD [email or web address] Historical LMR Provider 01/30/17 02/19/22 Kathleen Lopez MD [address] [place] [address] [email or web address] Historical LMR Provider 01/30/17 Weston [place] DO [address] [place] [address] Historical LMR Provider 01/30/1702/19 [place] [address] [email or web address] Historical LMR Provider 01/30/17 10/24/20 Santa Lweis MD [address] [place] [address], [address] [place] [address] Endocrinology 10/26/20 Alma Delia Castro MD 22 [facility], [address] [place] [address] Rheumatology 02/20/22 Archie Ramos MD [address] [place] [address] [address] [place] [address] Orthopedic Surgery 12/24/23 Sung Jane MD [address] [place] [address] Neurology 12/24/23 José Hernández MD [address] [place] [address] [address] [place] [address] Neurosurgery 12/24/23 Ruy Darling MD [address] [place] [address] Intensive Care 12/24/23 documented as of this encounter Additional Source Comments The information contained in this document represents components of the legal health record. It is not the complete legal health record.[facility]
--- OUTSIDE RECORDS SUMMARY | 2024-12-11 08:31 | XMS_ITS | Encounter Summary ---
Author Organization [facility] Address [address] [facility] [address] [place] [address] Phone Care Team Providers Care Supervisor Title Name Role Phone Ruy Darling MD Unavailable [phone] Adin Becerra MD Unavailable [email or web address] Kathleen Lopez MD Unavailable Weston [place] DO Unavailable [phone] Dionne Latif MD Unavailable Shelby Keenan DO Primary Care Provider [phone] Sivan Montgomery MD, MPH Primary Care Provid er Santa [place] MD Unavailable [phone] Alma Delia Castro MD Unavailable [phone] Archie Ramos MD Unavailable Sung Jane MD Unavailable José Hernández MD Unavailable Ruy Darling MD Unavailable [phone] Encounter Details Date Type Department Care Team (Late st Contact Info) Description 09/05/2018 Procedure Pass [facility], [address] [address] Social History Tobacco Use Types Packs/Day Years [...] 12/04/2024 Procedure Pass [facility] 30 [place] [address] 01/01/2025 9:30 AM EDT Appointment [facility] 30 [place] [address] Pooja Elam MD [address] [address] 01/08/2025 9:00 AM EDT Nurse Only [facility] Primary Care 15 [facility] 201 [place] [address] Sivan Montgomery MD, MPH 15 [facility] 201 [place] [address] 04/01/2025 8:00 AM EST Office Visit [facility] Rheumatology [address] [place] [address] Alma Delia Castro MD 22 [facility], [facility] 203 [place] [address] [email or web address] 05/15/2025 1:20 PM EST Office Visit [facility] [address]rd Floor, [address] [place] [address] Juan Burns MD 22 [facility], [address] [address] 05/26/2025 8:00 AM EST Office Visit [facility] Primary Care 15 [facility] 201 [place] [address] Pooja Elam MD [address] [address] 06/08/2025 9:00 AM EST Office Visit [facility] 22 [place] [address] Snata [place] MD 22 [facility], 1st [place] [address] 06/15/2025 9:00 AM EST Office Visit [facility] 22 [facility] 3rd Floor, [address] [place] [address] Anup Ward MD, MS 22 [facility], [address] [address] 11/24/2025 9:00 AM EDT Office Visit [facility] Primary Care 15 [facility] [address] [place] [address] Pooja Elam MD [address] [address] documented as of this encounter Visit Diagnoses Not on filedocumented in this encounter Care Teams Supervisor Title Relationship Specialty Start Date End Date Shelby Keenan DO [address] [place] [address] [email or web address] PCP - General Family Medicine 07/11/18 08/19/20 Sivan [place] MD, MPH [address] [place] [address] [address] [place] [address] [email or web address] PCP - General Family Medicine 08/20/20 Ruy Darling MD [address] [place] [address] [email or web address] Historical LMR Provider 01/30/17 12/23/23 Adin Becerra MD [email or web address] Historical LMR Provider 01/30/17 02/19/22 Kathleen Lopez MD [address] [place] [address] [email or web address] Historical LMR Provider 01/30/17 Weston [place] DO [address] [place] [address] Historical LMR Provider 01/30/1702/19 [place] [address] [email or web address] Historical LMR Provider 01/30/17 10/24/20 Santa [place] MD [address] [place] [address], [address] [place] [address] [email or web address] Endocrinology 10/26/20 Alma Delia Castro MD [address] [place] [address] 203 [place] [address] Rheumatology 02/20/22 Archie Ramos MD [address] [place] [address] Dr [address] [place] [address] Orthopedic Surgery 12/24/23 Sung Jane MD [address] [place] [address] Neurology 12/24/23 José Hernández MD [address] [place] [address] [address] [place] [address] Neurosurgery 12/24/23 Ruy Darling MD [address] [place] [address] [email or web address] Intensive Care 12/24/23 documented as of this encounter Additional Source Comments The information contained in this document represents components of the legal health record. It is not the complete legal health record.[facility]
--- OUTSIDE RECORDS SUMMARY | 2024-12-11 08:31 | XMS_ITS | Encounter Summary ---
Author Organization [facility] Address [address] [address] Phone Care Team Providers Care Java Tech Lead Name Role Phone Ruy Darling MD Unavailable [phone] Kathleen Lopez MD Unavailable Sivan Montgomery MD, MPH Primary Care Provid er Santa [place] MD Unavailable [phone] Alma Delia Castro MD Unavailable [phone] Archie Ramos MD Unavailable [phone] Sung Jane MD Unavai lable José Hernández MD Unavailable [phone] Ruy Darling MD Unavailable [phone] Encounter Details Date Type Department Care Team (Latest Contact Info) Description 11/21/2022 Transcribe Orders Virtual Department 30 [place], [place] [id number] Mare Drake PA 10 [place], [place] [id number] NAFLD (nonalcoholic fatty liver disease) (Primary Dx); [...] high school, GED, job training, learning the [place] language, technical skills, or developing parenting skills)? [...] st Contact Info) Description 12/04/2024 Procedure Pass [facility] Echo Lab 30 [place] [address] 01/01/2025 9:30 AM EDT Appointment [facility] Echo Lab 30 [place] [address] Pooja Elam MD [address] [address] 01/08/2025 9:00 AM EDT Nurse Only [facility] Primary Care [address] [address] Sivan [place] MD, MPH [address] [address] 04/01/2025 8:00 AM EST Office Visit [facility] Rheumatology 22 [place] [address] Alma Delia Castro MD 22 [facility], [address] [place] [address] [email or web address] 05/15/2025 1:20 PM EST Office Visit [facility] [address] [place] [address] 3rd Floor, [address] [place] [address] Juan Burns MD 22 [facility], [address] [place] [address] 05/26/2025 8:00 AM EST Office Visit [facility] Primary Care [address] [address] Pooja Elam MD [address] [address] 06/08/2025 9:00 AM EST Office Visit [facility] [address] [place] [address] Santa [place] MD 22 [facility], 1st [place] [address] 06/15/2025 9:00 AM EST Office Visit [facility] [address] 3rd Floor, [address] [place] [address] Anup Ward MD, MS 22 [facility], [address] [place] [address] [email or web address] 11/24/2025 9:00 AM EDT Office Visit [facility] [place] Primary Care 15 [facility] [address] [place] [address] Pooja Elam MD 15 [facility] [address] [place] [address] documented as of this encounter Results * [...] documented as of this encounter Care Teams Java Tech Lead Relationship Specialty Start Date End Date Sivan [place] MD, MPH 15 [facility] [address] [place] [address] [email or web address] PCP - General Family Medicine 08/20/20 Ruy Darling MD [address] [place] [address] [email or web address] Historical LMR Provider 01/30/17 12/23/23 Kathleen Lopez MD 22 [facility], [address] [place] [address] Historical LMR Provider 01/30/17 Santa [place] MD 22 [facility], [facility] [place] [address] Endocrinology 10/26/20 Alma Delia Castro MD 22 [facility], [address] [place] [address] Rheumatology 02/20/22 Archie Ramos MD [address] [place] [address] [address] [place] [address] Orthopedic Surgery 12/24/23 Sung Jane MD [address] [place] [address] Neurology 12/24/23 José Henrández MD [address] [place] [address] [address] [place] [address] Neurosurgery 12/24/23 Ruy Darling MD [address] [place] [address] [email or web address] Intensive Care 12/24/23 documented as of this encounter Additional Source Comments The information contained in this document represents components of the legal health record. It is not the complete legal health record.[facility]
--- OUTSIDE RECORDS SUMMARY | 2024-12-11 08:31 | XMS_ITS | Encounter Summary ---
Author Organization [facility] Address [address] [facility] [address] [place] [address] Phone Care Team Providers Care Marine Resource Economist Name Role Phone Ruy Darling MD Unavailable [phone] Adin Becerra MD Unavailable [email or web address] Kathleen Lopez MD Unavailable Weston Hamilton DO Unavailable [phone] Sivan Montgomery MD, MPH Primary Care Provid er Santa Lewis MD Unavailable [phone] Alma Delia Castro MD Unavailable Archie Ramos MD Unavailable Sung Jane MD Unavailable José Hernández MD Unavailable Ruy Darling MD Unavailable [phone] Encounter Details Date Type Department Care Team (Late st Contact Info) Description 04/18/2021 Ancillary Orders [facility] Orthopedics & Sports Medicine [address] [place] [address] Quin Kendall MD [address] [place] [address] Orthopedics & Sports Medicine, [place] [address] Social History Tobacco Use Types Packs/Day Years [...] st Contact Info) Description 12/04/2024 Procedure [address] [facility] Echo Lab [address] [place] [address] 01/01/2025 9:30 AM EDT Appointment [facility] Echo Lab [address] [place] [address] Pooja Elam MD [address] [place] [address] 01/08/2025 9:00 AM EDT Nurse Only [facility] [place] [facility] 15 [facility] 201 [place] [address] Sivan Montgomery MD, MPH 15 [facility] 201 [place] [address] 04/01/2025 8:00 AM EST Office Visit [facility] Rheumatology [address] [place] [address] Alma Delia Castro MD 22 [facility] 203 [place] [address] [email or web address] 05/15/2025 1:20 PM EST Office Visit [facility] [address] 3[address] Floor, [address] [place] [address] Juan Burns MD 22 [facility], [address] [place] [address] 05/26/2025 8:00 AM EST Office Visit [facility] Primary Care 15 [facility] [address] [place] [address] Pooja Elam MD 15 [facility] [address] 201 [place] [address] 06/08/2025 9:00 AM EST Office Visit [facility] Diabetes Center 22 [place] [address] Santa Lewis MD 22 [facility], 1st [place] [address] 06/15/2025 9:00 AM EST Office Visit [facility] 22 [facility] 3rd Floor, [address] [place] [address] Anup Ward MD, MS 22 [facility], [address] [place] [address] 11/24/2025 9:00 AM EDT Office Visit [facility] Primary Care 15 [facility] [address] [place] [address] Pooja Elam MD 15 [facility]. [address] [place] [address] documented as of this encounter Visit Diagnoses Not on filedocumented in this encounter Additional Health Concerns Assessment Noted Time PHQ-2 Depression Total Score: 0 09/24/19 19 9:43 AM EDT documented as of this encounter Care Teams Marine Resource Economist Relationship Specialty Start Date End Date Sivan Montgomery MD, MPH 15 [facility] [address] [place] [address] [email or web address] PCP - General Family Medicine 08/20/20 Ruy Darling MD [address] [place] [address] [email or web address] Historical LMR Provider 01/30/17 12/23/23 Adin Becerra MD [email or web address] Historical LMR Provider 01/30/17 02/19/22 Kathleen Lopez MD 22 [facility] 102 [place] [address] [email or web address] Historical LMR Provider 01/30/17 Weston Hamilton DO [address] [place] [address] Historical LMR Provider 01/30/1702/19 Santa Lewis MD 22 [facility], 1st [place] [address] [email or web address] Endocrinology 10/26/20 Alma Delia Castro MD 22 [facility], [address] [place] [address] [email or web address] Rheumatology 02/20/22 Archie Ramos MD [address] [place] [address] 203 [place] [address] Orthopedic Surgery 12/24/23 Sung Jane MD [address] [place] [address] 150 [place] [address] Neurology 12/24/23 José Hernández MD [address] [place] [address] [address] [place] [address] Neurosurgery 12/24/23 Ruy Darling MD [address] [place] [address] [email or web address] Intensive Care 12/24/23 documented as of this encounter Additional Source Comments The information contained in this document represents components of the legal health record. It is not the complete legal health record.[facility]
--- OUTSIDE RECORDS SUMMARY | 2024-12-11 08:31 | XMS_ITS | Encounter Summary ---
Author Organization [facility] Address [address] [facility] [address] [place] [address] Phone Care Team Providers Care Fixed Wing Aircraft Flight Mechanic Name Role Phone Kathleen Lopez MD Unavailable Sivan Montgomery MD, MPH Primary Care Provid er Santa Lewis MD Unavailable [phone] Alma Delia Castro MD Unavailable Archie Ramos MD Unavailable [phone] Sung Jane MD Unavai lable José Hernández MD Unavailable [phone] Ruy Darling MD Unavailable [phone] Reason for Visit * Reason Onset Date Comments TCM Visit 11/24/2024 Encounter Details Date Type Department Care Team (Late st Contact Info) Description 11/24/2024 Telephone [facility] Primary Care [address] [facility] [address] [place] [address] Sivan Montgomery MD, MPH 15 [facility] [address] [place], [place] [id number] [email or web address] TCM Visit Social History Tobacco Use Types [...] Care Management New Patient: YES/NO: no Hospitalization Name:[place] Discharge Date: 11/22/2024 Reason for Visit+ Diagnosis: [...] from discharge date Additional Note (if applicable): [facility] CSS Agent (Please do not reply to this user, as this inbox is not monitored. Thank you.) Thank you. documented in this encounter Plan of Treatment Upcoming Encounters Date Type Department Care Team (Late st Contact Info) Description 12/04/2024 Procedure Pass [facility] Echo Lab 30 [place] [address] 01/01/2025 9:30 AM EDT Appointment [facility] Echo Lab 30 [place] [address] Pooja Elam MD [address] [address] 01/08/2025 9:00 AM EDT Nurse Only [facility] Primary Care [address] [place] [address] Sivan Montgomery MD, MPH [address] [address] 04/01/2025 8:00 AM EST Office Visit [facility] Rheumatology [address] [place] [address] Alma Delia Castro MD [address] [place] [address], [address] [place] [address] [email or web address] 05/15/2025 1:20 PM EST Office Visit [facility] [address] [place] [address] Dr 3rd Floor, [address] [place] [address] Juan Burns MD 22 [facility], [address] [place] [address] 05/26/2025 8:00 AM EST Office Visit [facility] [place] [facility] [address] [facility] [address] [place] [address] Pooja Elam MD [address] [address] 06/08/2025 9:00 AM EST Office Visit [facility] Diabetes Center 22 [place] [address] Santa Lewis MD 22 [facility], 1st [place] [address] 06/15/2025 9:00 AM EST Office Visit [facility] [address] [facility] 3rd Floor, [address] [place] [address] Anup Ward MD, MS 22 [facility], [address] [place] [address] 11/24/2025 9:00 AM EDT Office Visit [facility] [place] [facility] [address] [facility] [address] [place] [address] Pooja Elam MD 15 [facility]. 201 [place] [address] documented as of this encounter Visit Diagnoses Not on filedocumented in this encounter Additional Health Concerns Assessment Noted Time PHQ-2 Depression Total Score: 0 11/21/19 24 9:11 AM EDT documented as of this encounter Care Teams Fixed Wing Aircraft Flight Mechanic Relationship Specialty Start Date End Date Sivan Montgomery MD, MPH 15 [facility] [address] [place] [address] PCP - General Family Medicine 08/20/20 Kathleen Lopez MD 22 [facility], [address] [place] [address] Historical LMR Provider 01/30/17 Santa Lewis MD 22 [facility], 1st [place] [address] Endocrinology 10/26/20 Alma Delia Castro MD 22 [facility], [address] [place] [address] Rheumatology 02/20/22 Archie Ramos MD [address] [place] [address] [address] [place] [address] Orthopedic Surgery 12/24/23 Sung Jane MD [address] [place] [address] Neurology 12/24/23 José Hernández MD [address] [place] [address] [address] [place] [address] Neurosurgery 12/24/23 Ruy Darling MD [address] [place] [address] [email or web address] Intensive Care 12/24/23 documented as of this encounter Additional Source Comments The information contained in this document represents components of the legal health record. It is not the complete legal health record.[facility]
--- OUTSIDE RECORDS SUMMARY | 2024-12-11 08:31 | XMS_ITS | Encounter Summary ---
Author Organization [facility] Address [address] [facility] [address] [place] [address] Phone Care Team Providers Care Geographic Analyst Name Role Phone Kathleen Lopez MD Unavailable Sivan Montgomery MD, MPH Primary Care Provid er Santa Lewis MD Unavailable [phone] Alma Delia Castro MD Unavailable Archie Ramos MD Unavailable Sung Jane MD Unavai lable José Hernández MD Unavailable [phone] Ruy Darling MD Unavailable [phone] Reason for Referral * MRI/CAT Scan - Closed Specialty Diagnoses / Procedures Referred By Letitia t Referred To Contact Radiology Procedures Outside CT Abd/pelvis Report Only Michelle, MD Michelle Referral ID Status Reason Start Date Expiration Date Visits Re quested Visits Authorized [id number] Closed 11/21/2024 1 1 Encounter Details Date Type Department Care Team (Late st Contact Info) Description 11/21/2024 Orders Only [facility] [address] [place] [address] Unknown, Unknown, Social History Tobacco Use Types [...] 12/04/2024 Procedure Pass [facility] Echo Lab 30 [place] [address] 01/01/2025 9:30 AM EDT Appointment [facility] Echo Lab 30 [place] [address] Pooja Elam MD [address] [address] 01/08/2025 9:00 AM EDT Nurse Only [facility] Primary Care 15 [facility] 201 [place] [address] Sivan Montgomery MD, MPH 15 [facility] 201 [place] [address] 04/01/2025 8:00 AM EST Office Visit [facility] Rheumatology [address] [place] [address] Alma Delia Castro MD 22 [facility], [address] [place] [address] [email or web address] 05/15/2025 1:20 PM EST Office Visit [facility] [address]rd Floor, [address] [place] [address] Juan Burns MD 22 [facility], [address] [place] [address] 05/26/2025 8:00 AM EST Office Visit [facility] Primary Care [address] [place] [address] Pooja Elam MD 15 [facility]. [address] [place] [address] 06/08/2025 9:00 AM EST Office Visit [facility] Diabetes Center [address] [place] [address] Santa Lewis MD 22 [facility], 1st [place] [address] 06/15/2025 9:00 AM EST Office Visit [facility] 22 [facility] 3rd Floor, [address] [place] [address] Anup Ward MD, MS 22 [facility], [address] [place] [address] 11/24/2025 9:00 AM EDT Office Visit [facility] Primary Care [address] [place] [address] Pooja Elam MD [address] [address] documented as of this encounter Procedures Procedure [...] documented as of this encounter Care Teams Geographic Analyst Relationship Specialty Start Date End Date Sivan Montgomery MD, MPH 15 [facility] [address] [place] [address] [email or web address] PCP - General Family Medicine 08/20/20 Kathleen Lopez MD 22 [facility], [address] [place] [address] Historical LMR Provider 01/30/17 Santa Lewis MD 22 [facility], 1st [place] [address] Endocrinology 10/26/20 Alma Delia Castro MD 22 [facility], [address] [place] [address] Rheumatology 02/20/22 Archie Ramos MD [address] [place] [address] 203 [place] [address] Orthopedic Surgery 12/24/23 Sung Jane MD [address] [place] [address] 150 [place] [address] Neurology 12/24/23 José Hernández MD [address] [place] [address] [address] [place] [address] Neurosurgery 12/24/23 Ruy Darling MD [address] [place] [address] [email or web address] Intensive Care 12/24/23 documented as of this encounter Additional Source Comments The information contained in this document represents components of the legal health record. It is not the complete legal health record.[facility]
--- OUTSIDE RECORDS SUMMARY | 2024-12-11 08:31 | XMS_ITS | Encounter Summary ---
Author Organization [facility] Address [address] [facility] [address] [place] [address] Phone Care Team Providers Care Ornamental Iron Worker Helper Name Role Phone Ruy Darling MD Unavailable [phone] Adin Becerra MD Unavailable [email or web address] Kathleen Lopez MD Unavailable Weston Hamilton DO Unavailable [phone] Sivan Montgomery MD, MPH Primary Care Provid er Santa Lewis MD Unavailable [phone] Alma Delia Castro MD Unavailable Archie Ramos MD Unavailable Sung Jane MD Unavailable José Hernández MD Unavailable Ruy Darling MD Unavailable [phone] Encounter Details Date Type Department Care Team (Late st Contact Info) Description 04/18/2021 Ancillary Orders [address] [address] Quin Kendall MD [address] [place] [address] Orthopedics & Sports Medicine, [place] [address] Right hip pain Social History Tobacco Use [...] 12/04/2024 Procedure Pass [facility] Echo Lab 30 [place] [address] 01/01/2025 9:30 AM EDT Appointment [facility] Echo Lab 30 [place] [address] Pooja Elam MD [address] [address] 01/08/2025 9:00 AM EDT Nurse Only [facility] Primary Care 15 [facility] 201 [place] [address] Sivan Montgomery MD, MPH 15 [facility] 201 [place] [address] 04/01/2025 8:00 AM EST Office Visit [facility] Rheumatology [address] [place] [address] Alma Delia Castro MD 22 [facility] 203 [place] [address] [email or web address] 05/15/2025 1:20 PM EST Office Visit [facility] [address] 3[address] Floor, [address] [place] [address] Juan Burns MD 22 [facility], [address] [place] [address] 05/26/2025 8:00 AM EST Office Visit [facility] Primary Care [address] [place] [address] Pooja Elam MD 15 [facility] [address] [place] [address] 06/08/2025 9:00 AM EST Office Visit [facility] Diabetes Center 22 [place] [address] Santa Lewis MD 22 [facility], 1st [place] [address] 06/15/2025 9:00 AM EST Office Visit [facility] [address] 3[address] Floor, [address] [place] [address] Anup Ward MD, MS 22 [facility], [address] [place] [address] 11/24/2025 9:00 AM EDT Office Visit [facility] Primary Care [address] [place] [address] Pooja Elam MD 15 [facility]. [address] [place] [address] Pending Results Name Type Priority Associated Diagnoses [...] documented as of this encounter Care Teams Ornamental Iron Worker Helper Relationship Specialty Start Date End Date Sivan Montgomery MD, MPH [address] [address] [email or web address] PCP - General Family Medicine 08/20/20 Ruy Darling MD [address] [place] [address] [email or web address] Historical LMR Provider 01/30/17 12/23/23 Adin Becerra MD [email or web address] Historical LMR Provider 01/30/17 02/19/22 Kathleen Lopez MD [address] [address] [email or web address] Historical LMR Provider 01/30/17 Weston Hamilton DO [address] [place] [address] Historical LMR Provider 01/30/1702/19 Santa Lewis MD 22 [facility], [address] [place] [address] [email or web address] Endocrinology 10/26/20 Alma Delia Castro MD 22 [facility], [facility] 203 [place] [address] Rheumatology 02/20/22 Archie Ramos MD [address] [place] [address] [address] [place] [address] Orthopedic Surgery 12/24/23 Sung Jane MD [address] [place] [address] Neurology 12/24/23 José Hernández MD [address] [place] [address] [address] [place] [address] Neurosurgery 12/24/23 Ruy Darling MD [address] [place] [address] [email or web address] Intensive Care 12/24/23 documented as of this encounter Additional Source Comments The information contained in this document represents components of the legal health record. It is not the complete legal health record.[facility]
--- OUTSIDE RECORDS SUMMARY | 2024-12-11 08:31 | XMS_ITS | Encounter Summary ---
Author Organization [facility] Address [address] [facility] [address] [place] [address] Phone Care Team Providers Care Vascular Radiologist Name Role Phone Ruy Darling MD Unavailable [phone] Adin Becerra MD Unavailable [email or web address] Kathleen Lopez MD Unavailable Weston Hamilton DO Unavailable [phone] Dionne Latif MD Unavailable Shelby Keenan DO Primary Care Provider [phone] Sivan Montgomery MD, MPH Primary Care Provid er Santa Lewis MD Unavailable [phone] Alma Delia Castro MD Unavailable Archie Ramos MD Unavailable [phone] Sung Jane MD Unavailable José Hernández MD Unavailable Ruy Darling MD Unavailable [phone] Encounter Details Date Type Department Care Team (Latest Contact Info) Description 09/03/2018 Transcribe Orders [facility] [address] [id number] Bridger Max MD [address] [place] [address] [email or web address] Abdominal pain, unspecified abdominal location (Primary Dx) [...] 12/04/2024 Procedure Pass [facility] [address] [place] [address] 01/01/2025 9:30 AM EDT Appointment [facility] [address] [place] [address] Pooja Elam MD [address] [address] [email or web address] 01/08/2025 9:00 AM EDT Nurse Only [facility] 15 [facility] 201 [place] [address] Sivan Montgomery MD, MPH [address] [address] [email or web address] 04/01/2025 8:00 AM EST Office Visit [facility] Rheumatology [address] [place] [address] Alma Delia Castro MD 22 [facility] 203 [place] [address] [email or web address] 05/15/2025 1:20 PM EST Office Visit [facility] [address] 3rd Floor, [address] [place] [address] Juan Burns MD 22 [facility], [address] [place] [address] 05/26/2025 8:00 AM EST Office Visit [facility] Primary Care 15 [facility] [address] [place] [address] Pooja Elam MD [address] [address] 06/08/2025 9:00 AM EST Office Visit [facility] 22 [place] [address] Santa Lewis MD 22 [facility], 1st [place] [address] 06/15/2025 9:00 AM EST Office Visit [facility] [address] [facility] 3rd Floor, [address] [place] [address] Anup Ward MD, MS 22 [facility], [address] [place] [address] 11/24/2025 9:00 AM EDT Office Visit [facility] [address] [address] Pooja Elam MD [address] [address] documented as of this encounter Results * (ABNORMAL) GGT (Gamma glutamyl transferase) (09/03/2018 1:37 PM EDT) GGT 287(H) 7 - 33 U/L [facility] Blood 09/03/2018 1:37 PM EDT 09/03/2018 1:41 PM EDT us Bridger Max MD LAB BLOOD ORDERABLES Final Resul t Performing Organization Address [facility]/ZIP Co de Phone Number [address] [address] * (ABNORMAL) Ferritin (09/03/2018 1:37 PM EDT) FERRITIN 616(H) 13 - 150 ug/L [facility] Blood 09/03/2018 1:37 PM EDT 09/03/2018 1:41 PM EDT us Bridger Max MD LAB BLOOD ORDERABLES Final Resul t Performing Organization Address [facility] Co de Phone Number [address] [address] * Iron and iron binding capacity (09/03/2018 1:37 PM EDT) IRON 125 30 - 160 ug/dL [facility] IRON BINDING CAPACITY 279 228 - 428 ug/dL [facility] TRANSFERRIN SATURAT. 45 15 - 50 % [facility] Blood 09/03/2018 1:37 PM EDT 09/03/2018 1:41 PM EDT us Bridger Max MD LAB BLOOD ORDERABLES Final Resul t Performing Organization Address [facility] Co de Phone Number [address] [address] * (ABNORMAL) LFTs (hepatic panel) (09/03/2018 1:37 PM EDT) ALKALINE PHOSPHATASE 152(H) 39 - 117 U/L [facility] TOTAL BILIRUBIN 0.4 0.0 - 1.2 mg/dL [facility] DIRECT BILIRUBIN <0.2 0 - 0.3 mg/dL [facility] Bilirubin (Indirect) NOT CALCULATED 0 - 1.5 mg/dL [facility] AST 143(H) 0 - 37 U/L [facility] ALT 243(H) 0 - 40 U/L [facility] TOTAL PROTEIN 7.6 6.5 - 8.0 g/dL [facility] ALBUMIN 4.3 3.9 - 4.8 g/dL [facility] GLOBULIN 3.3 1 - 4.8 g/dL [facility] A/G Ratio 1.30 1.00 - 4.80 RATIO [facility] Blood 09/03/2018 1:37 PM EDT 09/03/2018 1:41 PM EDT us Bridger Max MD LAB BLOOD ORDERABLES Final Resul t Performing Organization Address City/State/[facility] Co de Phone Number [address] [address] documented in this encounter Visit Diagnoses Diagnosis Abdominal pain, unspecified abdominal location- Primary documented in this encounter Care Teams Vascular Radiologist Relationship Specialty Start Date End Date Shelby Keenan DO [address] [place] [address] [email or web address] PCP - General Family Medicine 07/11/18 08/19/20 Sivan Montgomery MD, MPH [address] [place] [address] [email or web address] PCP - General Family Medicine 08/20/20 Ruy Darling MD [address] [place] [address] [email or web address] Historical LMR Provider 01/30/17 12/23/23 Adin Becerra MD [email or web address] Historical LMR Provider 01/30/17 02/19/22 Kathleen Lopez MD 22 [facility], [address] [place] [address] Historical LMR Provider 01/30/17 Weston Hamilton DO [address] [place] [address] 201 [place] [address] Historical LMR Provider 01/30/1702/19 [place] [address] [email or web address] Historical LMR Provider 01/30/17 10/24/20 aSnta Lewis MD [address] [place] [address], 1st [place] [address] Endocrinology 10/26/20 Alma Delia Castro MD [address] [place] [address], [address] [place] [address] Rheumatology 02/20/22 Archie Ramos MD [address] [place] [address] [address] [place] [address] Orthopedic Surgery 12/24/23 Sung Jane MD [address] [place] [address] 150 [place] [address] Neurology 12/24/23 José Hernández MD [address] [place] [address] [address] [place] [address] Neurosurgery 12/24/23 Ruy Darling MD [address] [place] [address] [email or web address] Intensive Care 12/24/23 documented as of this encounter Additional Source Comments The information contained in this document represents components of the legal health record. It is not the complete legal health record.[facility]
--- OUTSIDE RECORDS SUMMARY | 2024-12-11 08:32 | XMS_ITS | Encounter Summary ---
Author Organization [facility] Address [address] [facility] [address] [place] [address] Phone Care Team Providers Care Alarm Operator Name Role Phone Melissa Darling MD Unavailable [phone] Adin Becerra MD Unavailable [email or web address] Kathleen Lopez MD Unavailable Weston Hamilton DO Unavailable [phone] Dionne Latif MD Unavailable Shelby Keenan DO Primary Care Provider [phone] Sivan Montgomery MD, MPH Primary Care Provid er Santa Lewis MD Unavailable [phone] Alma Delia Castro MD Unavailable Archie Ramos MD Unavailable Sung Jane MD Unavailable José Hernández MD Unavailable Melissa Darling MD Unavailable [phone] Reason for Referral * MRI/CAT Scan - Closed Specialty Diagnoses / Procedures Referred By Contac t Referred To Contact Radiology Diagnoses Lumbar radiculopathy Procedures MRI Lumbar Spine MRI Lumbar Spine Renard James DO Phone: tel: fax: mailto: . Kleek Referral ID Status Reason Start Date Expiration Date Visits Re quested Visits Authorized [id number] Closed 09/05/2018 09/05/2019 1 1 Encounter Details Date Type Department Care Team (Latest Contact Info) Description 09/16/2018 Ancillary Orders Virtual Department 30 [place] [address] Renard James DO [address] [place] [address] Lumbar radiculopathy Social History Tobacco Use Types [...] 12/04/2024 Procedure Pass [facility] 30 [place] [address] 01/01/2025 9:30 AM EDT Appointment [facility] 30 [place] [address] Pooja Elam MD 15 [facility] Vir[address]. [address] [place] [address] 01/08/2025 9:00 AM EDT Nurse Only Kera Dowling [facility] [place] [facility] [address] [facility] [address] [place] [address] Sivan Montgomery MD, MPH 15 [facility] [address] [place] [address] 04/01/2025 8:00 AM EST Office Visit [facility] Rheumatology [address] [place] [address] Alma Delia Castro MD 22 [facility], [address] [place] [address] [email or web address] 05/15/2025 1:20 PM EST Office Visit [facility] [address] 3rd Floor, [address] [place] [address] Juan Burns MD 22 [facility], [address] [address] 05/26/2025 8:00 AM EST Office Visit [facility] [address] [facility] 201 [place] [address] Pooja Elam MD [address] [address] 06/08/2025 9:00 AM EST Office Visit [facility] Diabetes Center [address] [place] [address] Santa Lewis MD 22 [facility], 1st [place] [address] 06/15/2025 9:00 AM EST Office Visit [facility] [address] 3[address] Floor, [address] [place] [address] Anup Ward MD, MS 22 [facility], [address] [place] [address] 11/24/2025 9:00 AM EDT Office Visit [facility] [place] [facility] 15 [facility] [address] [place] [address] Pooja Elam MD 15 [facility] [address] [place] [address] [email or web address] documented as of this encounter Results * [...] interval change from 02/15/2017 apparent. POS - [id number] Narrative 09/20/2018 10:24 AM EDT TECHNIQUE: Exam [...] chronic and grossly stable anterolisthesis of the [id number] body uncovering the roof of the intervening [...] significantinterval change from 02/15/2017 apparent. POS - [id number] Renard James DO IMG MR XSPECIALTY Final Resu lt documented in this encounter Visit Diagnoses Diagnosis Lumbar radiculopathy Thoracic or lumbosacral neuritis or radiculitis, unspecified Lumbar radiculopathy Thoracic or lumbosacral neuritis or radiculitis, unspecified documented in this encounter Care Teams Alarm Operator Relationship Specialty Start Date End Date Shelby Keenan DO [address] [place] [address] [email or web address] PCP - General Family Medicine 07/11/18 08/19/20 Sivan Montgomery MD, MPH [address] [place] [address] [email or web address] PCP - General Family Medicine 08/20/20 Melissa Darling MD [address] [place] [address] [email or web address] Historical LMR Provider 01/30/17 12/23/23 Adin Becerra MD [email or web address] Historical LMR Provider 01/30/17 02/19/22 Kathleen Lopez MD [address] [place] [address] [email or web address] Historical LMR Provider 01/30/17 Weston Hamilton DO [address] [place] [address] Historical LMR Provider 01/30/1702/19 [place] [address] [email or web address] Historical LMR Provider 01/30/17 10/24/20 Santa Lewis MD [address] [place] [address] [email or web address] Endocrinology 10/26/20 Alma Delia Castro MD [address] [place] [address] [address] [place] [address] Rheumatology 02/20/22 Archie Ramos MD [address] [place] [address] [address] [place] [address] Orthopedic Surgery 12/24/23 Sung Jane MD [address] [place] [address] Neurology 12/24/23 José Hernández MD [address] [place] [address] [address] [place] [address] Neurosurgery 12/24/23 Melissa Darling MD [address] [place] [address] [email or web address] Intensive Care 12/24/23 documented as of this encounter Additional Source Comments The information contained in this document represents components of the legal health record. It is not the complete legal health record.[facility]
--- OUTSIDE RECORDS SUMMARY | 2024-12-11 08:32 | XMS_ITS | Encounter Summary ---
Author Organization [facility] Address [address] [facility] [address] [place] [address] Phone Care Team Providers Care Machine Repair Person Name Role Phone Weston Hamilton DO Primary Care Provider [phone] Ruy Darling MD Unavailable [phone] Adin Becerra MD Unavailable [email or web address] Kathleen Lopez MD Unavailable Weston Hamilton DO Unavailable [phone] Dionne Latif MD Unavailable [phone] Shelby Keenan DO Primary Care Provider [phone] Sivan Montgomery MD, MPH Primary Care Provid er Santa Lewis MD Unavailable [phone] Alma Delia Castro MD Unavailable Archie Ramos MD Unavailable [phone] Sung Jane MD Unavailable José Hernández MD Unavailable Ruy Darling MD Unavailable [phone] Reason for Referral * MRI/CAT Scan - Closed Specialty Diagnoses / Procedures Referred By Contac t Referred To Contact Radiology Diagnoses White matter disease Numbness Weakness Vertigo Procedures MRI Brain Ashwin Almonte MD Phone: tel: fax: mailto:[email or web address] Referral ID Status Reason Start Date Expiration Date Visits Re quested Visits Authorized [id number] Closed 05/13/2018 05/13/2019 1 1 Encounter Details Date Type Department Care Team (Late Contact Info) Description 05/13/2018 Ancillary Orders Virtual Department [address] [place] [address] Ashwin Almonte MD [address] [place] [address], [address] [place] [address] [email or web address] White matter disease; Numbness; Weakness; [...] 12/04/2024 Procedure Pass [facility] 30 [place] [address] 01/01/2025 9:30 AM EDT Appointment [facility] 30 [place] [address] Pooja Elam MD [address] [place] [address] 01/08/2025 9:00 AM EDT Nurse Only [facility] 15 [facility] 201 [place] [address] Sivan Montgomery MD, MPH 15 [facility] 201 [place] [address] 04/01/2025 8:00 AM EST Office Visit [facility] Rheumatology [address] [place] [address] Alma Delia Castro MD 22 [facility], [address] [place] [address] [email or web address] 05/15/2025 1:20 PM EST Office Visit [facility] 22 [facility] 3rd Floor, [address] [place] [address] Juan Burns MD [address] [place] [address], [address] [address] 05/26/2025 8:00 AM EST Office Visit [facility] 15 [facility] 201 [place] [address] Pooja Elam MD [address] [address] 06/08/2025 9:00 AM EST Office Visit [facility] Center 22 [place] [address] Santa Lewis MD 22 [facility], 1st [place] [address] 06/15/2025 9:00 AM EST Office Visit [facility] 22 [facility] 3rd Floor, [address] [place] [address] Anup Ward MD, MS 22 [facility], [address] [place] [address] [email or web address] 11/24/2025 9:00 AM EDT Office Visit [facility] [place] [facility] [address] [facility] [address] [place] [address] Pooja Elam MD 15 [facility] [address] [place] [address] [email or web address] documented as of [...] blood brain barrier breakdown are seen. POS [id number] Edited by: Shahla Ayala on 05/24/2018 1:14 [...] No areas of restricted diffusion. Procedure Note Ramno Girard MD - 05/24/2018 HISTORY: Dizziness, vertigo [...] parietal region on the right appears unchanged [id number]. Small regional lymph nodes noted on the diffusion sequence but noenlarged or worrisome lesions. No areas of restricted diffusion. IMPRESSION: Pronounced white matter disease, but without appreciable change sinceprior studies. No mass, hemorrhage, or infarction detected. No clearprogression identified. No zones of blood brain barrier breakdown areseen. POS [id number] Edited by: Shahla Ayala on 05/24/2018 1:14 [...] giddiness documented in this encounter Care Teams Machine Repair Person Relationship Specialty Start Date End Date Weston Hamilton DO PCP - General 10/14/13 07/10/18 Shelby Keenan DO [address] [place] [address] [email or web address] PCP - General Family Medicine 07/11/18 08/19/20 Sivan Montgomery MD, MPH [address] [place] [address] [email or web address] PCP - General Family Medicine 08/20/20 Ruy Darling MD [address] [place] [address] [email or web address] Historical LMR Provider 01/30/17 12/23/23 Adin Becerra MD [email or web address] Historical LMR Provider 01/30/17 02/19/22 Kathleen Lopez MD [address] [place] [address] [email or web address] Historical LMR Provider 01/30/17 Weston Hamilton DO [address] [place] [address] Historical LMR Provider 01/30/1702/19 [place] [address] [email or web address] Historical LMR Provider 01/30/17 10/24/20 Santa Lewis MD [address] [place] [address] Endocrinology 10/26/20 Alma Delia Castro MD 22 [facility], [address] [place] [address] Rheumatology 02/20/22 Archie Ramos MD [address] [place] [address] [address] [place] [address] Orthopedic Surgery 12/24/23 Sung Jane MD [address] [place] [address] Neurology 12/24/23 José Hernández MD [address] [place] [address] [address] [place] [address] Neurosurgery 12/24/23 Ruy Darling MD [address] [place] [address] Intensive Care 12/24/23 documented as of this encounter Additional Source Comments The information contained in this document represents components of the legal health record. It is not the complete legal health record.[facility]
--- OUTSIDE RECORDS SUMMARY | 2024-12-11 08:32 | XMS_ITS | Encounter Summary ---
Author Organization [facility] Address [address] [facility] [address] [place] [address] Phone Care Team Providers Care Smash Hand Name Role Phone Ruy Darling MD Unavailable [phone] Adni Becerra MD Unavailable [email or web address] Kathleen Lopez MD Unavailable Weston Hamilton DO Unavailable [phone] Sivan Montgomery MD, MPH Primary Care Provid er Santa Lewis MD Unavailable [phone] Alma Delia Castro MD Unavailable Archie Ramos MD Unavailable [phone] Sung Jane MD Unavailable José Hernández MD Unavailable [phone] Ruy Darling MD Unavailable [phone] Encounter Details Date Type Department Care Team (Latest Contact Info) Description 01/19/2021 Transcribe Orders [facility] Laboratory [address] 2nd Floor [place], [place] [id number] Bridger Max MD [address] [facility] 2 [place], [place] [id number] Personal history of colonic polyps (Primary Dx); [...] 12/04/2024 Procedure Pass [facility] 30 [place] [address] 01/01/2025 9:30 AM EDT Appointment [facility] 30 [place] [address] Pooja Elam MD [address] [address] 01/08/2025 9:00 AM EDT Nurse Only [facility] 15 [facility] 201 [place] [address] Sivan Montgomery MD, MPH 15 [facility] 201 [place] [address] 04/01/2025 8:00 AM EST Office Visit [facility] Rheumatology [address] [place] [address] Alma Delia Castro MD 22 [facility] 203 [place] [address] [email or web address] 05/15/2025 1:20 PM EST Office Visit [facility] [address] [facility] 3rd Floor, [address] [place] [address] Juan Burns MD [address] [facility], [address] [place] [address] 05/26/2025 8:00 AM EST Office Visit [facility] 15 [facility] [address] [place] [address] Pooja Elam MD 15 [facility] [address] [place] [address] 06/08/2025 9:00 AM EST Office Visit [facility] 22 [place] [address] Santa Lewis MD 22 [facility], 1st [place] [address] 06/15/2025 9:00 AM EST Office Visit [facility] 22 [facility] 3rd Floor, [address] [place] [address] Anup Ward MD, MS 22 [facility], [address] [place] [address] 11/24/2025 9:00 AM EDT Office Visit [facility] 15 [facility] [address] [place] [address] Pooja Elam MD 15 [facility]. [address] [place] [address] documented as of this encounter Results * (ABNORMAL) LFTs (hepatic panel) (01/19/2021 9:47 AM EDT) ALKALINE PHOSPHATASE 127(H) 39 - 117 U/L [facility] TOTAL BILIRUBIN 0.4 0.0 - 1.2 mg/dL [facility] DIRECT BILIRUBIN <0.2 0 - 0.3 mg/dL [facility] Bilirubin (Indirect) NOT CALCULATED 0 - 1.5 mg/dL [facility] AST 36 0 - 37 U/L [facility] ALT 28 0 - 40 U/L [facility] TOTAL PROTEIN 7.7 6.5 - 8.0 g/dL [facility] ALBUMIN 4.7 3.9 - 4.8 g/dL [facility] GLOBULIN 3.0 1 - 4.8 g/dL [facility] A/G Ratio 1.57 1.00 - 4.80 RATIO [facility] Blood 01/19/2021 9:47 AM EDT 01/19/2021 9:50 AM EDT us Bridger Max MD LAB BLOOD ORDERABLES Final Resul t [facility] 30 [place] [address] documented in this encounter Visit Diagnoses Diagnosis Personal history of colonic polyps- Primary LOPEZ (nonalcoholic steatohepatitis) Other chronic nonalcoholic liver disease documented in this encounter Additional Health Concerns Assessment Noted Time PHQ-2 Depression Total Score: 0 09/24/19 19 9:43 AM EDT documented as of this encounter Care Teams Smash Hand Relationship Specialty Start Date End Date Sivan Montgomery MD, MPH [address] [place] [address] [email or web address] PCP - General Family Medicine 08/20/20 Ruy Darling MD [address] [place] [address] [email or web address] Historical LMR Provider 01/30/17 12/23/23 Adin Becerra MD [email or web address] Historical LMR Provider 01/30/17 02/19/22 Kathleen Lopez MD 22 [facility] [address] [place] [address] Historical LMR Provider 01/30/17 Weston Hamilton DO [address] [place] [address] 201 [place] [address] Historical LMR Provider 01/30/1702/19 Santa Lewis MD 22 [facility], 1st [place] [address] Endocrinology 10/26/20 Alma Delia Castro MD [address] [place] [address] 203 [place] [address] Rheumatology 02/20/22 Archie Ramos MD [address] [place] [address] 203 [place] [address] Orthopedic Surgery 12/24/23 Sung Jane MD [address] [place] [address] Neurology 12/24/23 José Hernández MD [address] [place] [address] [address] [place] [address] Neurosurgery 12/24/23 Ruy Darling MD [address] [place] [address] Intensive Care 12/24/23 documented as of this encounter Additional Source Comments The information contained in this document represents components of the legal health record. It is not the complete legal health record.[facility]
--- OUTSIDE RECORDS SUMMARY | 2024-12-11 08:32 | XMS_ITS | Encounter Summary ---
Author Organization [facility] Address [address] [facility] [address] [place] [address] Phone Care Team Providers Care Continuity Editor Name Role Phone Weston Hamilton DO Primary Care Provider Ruy Darling MD Unavailable [phone] Adin Becerra MD Unavailable [email or web address] Kathleen Lopez MD Unavailable Weston Hamilton DO Unavailable [phone] Dionne Latif MD Unavailable Shelby Keenan DO Primary Care Provider [phone] Sivan Montgomery MD, MPH Primary Care Provid er Santa Lewis MD Unavailable [phone] Alma Delia Castro MD Unavailable Archie Ramos MD Unavailable Sung Jane MD Unavailable José Hernández MD Unavailable Ruy Darling MD Unavailable [phone] Encounter Details Date Type Department Care Team (Late st Contact Info) Description 05/13/2018 Procedure Pass [facility], [facility] [place] 30 [place] [address] Social History Tobacco Use Types Packs/Day Years [...] 12/04/2024 Procedure Pass [facility] 30 [place] [address] 01/01/2025 9:30 AM EDT Appointment [facility] Echo Lab 30 [place] [address] Pooja Elam MD [address] [address] 01/08/2025 9:00 AM EDT Nurse Only [facility] Care 15 [facility] 201 [place] [address] Sivan Montgomery MD, MPH 15 [facility] 201 [place] [address] 04/01/2025 8:00 AM EST Office Visit [facility] Rheumatology [address] [place] [address] Alma Delia Castro MD 22 [facility] 203 [place] [address] [email or web address] 05/15/2025 1:20 PM EST Office Visit [facility] 22 [facility] 3rd Floor, [address] [place] [address] Juan Burns MD 22 [facility], [address] [place] [address] 05/26/2025 8:00 AM EST Office Visit [facility] Primary Care 15 [facility] 201 [place] [address] Pooja Elam MD 15 [facility]. [address] [place] [address] 06/08/2025 9:00 AM EST Office Visit [facility] 22 [place] [address] Santa Lewis MD 22 [facility], 1st [place] [address] 06/15/2025 9:00 AM EST Office Visit [facility] 22 [facility] 3rd Floor, [address] [place] [address] Anup Ward MD, MS 22 [facility], [address] [address] 11/24/2025 9:00 AM EDT Office Visit [facility] 15 [facility] [address] [place] [address] Pooja Elam MD [address] [address] documented as of this encounter Visit Diagnoses Not on filedocumented in this encounter Care Teams Continuity Editor Relationship Specialty Start Date End Date Weston Hamilton DO PCP - General 10/14/13 07/10/18 Shelby Keenan DO [address] [place] [address] [email or web address] PCP - General Family Medicine 07/11/18 08/19/20 Sivan Montgomery MD, MPH [address] [place] [address] [email or web address] PCP - General Family Medicine 08/20/20 Ruy Darling MD [address] [place] [address] [email or web address] Historical LMR Provider 01/30/17 12/23/23 Adin Becerra MD [email or web address] Historical LMR Provider 01/30/17 02/19/22 Kathleen Lopez MD [address] [place] [address] [email or web address] Historical LMR Provider 01/30/17 Weston Hamilton DO [address] [place] [address] Historical LMR Provider 01/30/1702/19 [place] [address] [email or web address] Historical LMR Provider 01/30/17 10/24/20 Santa Lewis MD [address] [place] [address], [address] [place] [address] Endocrinology 10/26/20 Alma Delia Castro MD 22 [facility], [address] [place] [address] Rheumatology 02/20/22 Archie Ramos MD [address] [place] [address] [address] [place] [address] Orthopedic Surgery 12/24/23 Sugn Jane MD [address] [place] [address] Neurology 12/24/23 José Hernández MD [address] [place] [address] [address] [place] [address] Neurosurgery 12/24/23 Ruy Darling MD [address] [place] [address] [email or web address] Intensive Care 12/24/23 documented as of this encounter Additional Source Comments The information contained in this document represents components of the legal health record. It is not the complete legal health record.[facility]
--- OUTSIDE RECORDS SUMMARY | 2024-12-11 08:32 | XMS_ITS | Encounter Summary ---
Author Organization [facility] Address [address] [facility] [address] [place] [address] Phone Care Team Providers Care Underground Conduit Installer Name Role Phone Weston Hamilton DO Primary Care Provider Ruy Darling MD Unavailable [phone] Adin Becerra MD Unavailable [email or web address] Kathleen Lopez MD Unavailable Weston Hamilton DO Unavailable [phone] Dionne Latif MD Unavailable Shelby Keenan DO Primary Care Provider [phone] Sivan Montgomery MD, MPH Primary Care Provid er Santa Lewis MD Unavailable [phone] Alma Delia [place] MD Unavailable Archie Ramos MD Unavailable Sung Jane MD Unavailable José Hernández MD Unavailable Ruy Darling MD Unavailable [phone] Encounter Details Date Type Department Care Team (Late st Contact Info) Description 06/13/2018 Ancillary Orders Virtual Department 30 [place] [address] Reji Mcarthur MD 30 [place] [address] [email or web address] Spondylolisthesis, unspecified spinal region Social History Tobacco [...] 12/04/2024 Procedure Pass [facility] 30 [place] [address] 01/01/2025 9:30 AM EDT Appointment [facility] 30 [place] [address] Pooja Elam MD [address] [place] [address] 01/08/2025 9:00 AM EDT Nurse Only [facility] Primary Care [address] [address] Sivan Montgomery MD, MPH [address] [address] 04/01/2025 8:00 AM EST Office Visit [facility] Rheumatology 22 [place] [address] Alma Delia Castro MD 22 [facility], [facility] 203 [place] [address] [email or web address] 05/15/2025 1:20 PM EST Office Visit [facility] 22 [facility] 3rd Floor, [address] [place] [address] Juan Burns MD 22 [facility], [address] [place] [address] 05/26/2025 8:00 AM EST Office Visit [facility] Primary Care [address] [address] Pooja Elam MD [address] [address] 06/08/2025 9:00 AM EST Office Visit [facility] 22 [place] [address] Santa Lewis MD 22 [facility], 1st [place] [address] 06/15/2025 9:00 AM EST Office Visit [facility] 22 [facility] 3rd Floor, [address] [place] [address] Anup Ward MD, MS 22 [facility], [address] [place] [address] 11/24/2025 9:00 AM EDT Office Visit [facility] Primary Care [address] [address] Pooja Elam MD [address] [address] documented as of this encounter Results * [...] region documented in this encounter Care Teams Underground Conduit Installer Relationship Specialty Start Date End Date Weston Hamilton DO PCP - General 10/14/13 07/10/18 Shelby Keenan DO [address] [place] [address] [email or web address] PCP - General Family Medicine 07/11/18 08/19/20 Sivan Montgomery MD, MPH [address] [place] [address] [email or web address] PCP - General Family Medicine 08/20/20 Ruy Darling MD [address] [place] [address] [email or web address] Historical LMR Provider 01/30/17 12/23/23 Adin Becerra MD [email or web address] Historical LMR Provider 01/30/17 02/19/22 Kathleen Lopez MD [address] [place] [address] [email or web address] Historical LMR Provider 01/30/17 Weston Hamilton DO [address] [place] [address] Historical LMR Provider 01/30/1702/19 [place] [address] [email or web address] Historical LMR Provider 01/30/17 10/24/20 Santa Lewis MD [address] [place] [address], [facility] [place] [address] Endocrinology 10/26/20 Alma Delia Castro MD 22 [facility], [address] [place] [address] Rheumatology 02/20/22 Archie Ramos MD [address] [place] [address] [address] [place] [address] Orthopedic Surgery 12/24/23 Sung Jane MD [address] [place] [address] Neurology 12/24/23 José Hernández MD [address] [place] [address] [address] [place] [address] Neurosurgery 12/24/23 Ruy Darling MD [address] [place] [address] [email or web address] Intensive Care 12/24/23 documented as of this encounter Additional Source Comments The information contained in this document represents components of the legal health record. It is not the complete legal health record.[facility]
--- OUTSIDE RECORDS SUMMARY | 2024-12-11 08:32 | XMS_ITS | Clinical Summary ---
Author Organization [facility] Address [address] [place] [address] Care Team Providers Care Turnaround Planner Name Role Phone Sivan Montgomery MD Primary [...] age to complete this topic Care Teams Turnaround Planner Relationship Specialty Start Date End Date Sivan Montgomery MD [address] [place] [address] [place] [address] PCP - General Family Medicine 12/07/20
--- OUTSIDE RECORDS SUMMARY | 2024-12-11 08:33 | XMS_ITS | Encounter Summary ---
Author Organization [facility] Address [address] [facility] [address] [place] [address] Phone Care Team Providers Care Payment Rep Name Role Phone Ruy Darling MD Unavailable [phone] Adin Becerra MD Unavailable [email or web address] Kathleen Lopez MD Unavailable Weston Hamilton DO Unavailable [phone] Dionne Latif MD Unavailable Shelby Keenan DO Primary Care Provider [phone] Sivan Montgomery MD, MPH Primary Care Provid er Santa Lewis MD Unavailable [phone] Alma Delia Castro MD Unavailable [phone] Archie Ramos MD Unavailable Sung Jane MD Unavailable José Hernández MD Unavailable Ruy Darling MD Unavailable [phone] Encounter Details Date Type Department Care Team (Late st Contact Info) Description 03/10/2019 Procedure Pass [facility] Admitting Dept Virtual Department 30 [place] [address] Social History Tobacco Use Types Packs/Day Years [...] 12/04/2024 Procedure Pass [facility] 30 [place] [address] 01/01/2025 9:30 AM EDT Appointment [facility] 30 [place] [address] Pooja Elam MD [address] [address] 01/08/2025 9:00 AM EDT Nurse Only [facility] Primary Care 15 [facility] 201 [place] [address] Sivan Montgomery MD, MPH 15 [facility] 201 [place] [address] 04/01/2025 8:00 AM EST Office Visit [facility] Rheumatology [address] [place] [address] Alma Delia Castro MD 22 [facility], [facility] 203 [place] [address] [email or web address] 05/15/2025 1:20 PM EST Office Visit [facility] [address] [facility] 3rd Floor, [address] [place] [address] Juan Burns MD 22 [facility], [address] [address] 05/26/2025 8:00 AM EST Office Visit [facility] Primary Care 15 [facility] 201 [place] [address] Pooja Elam MD [address] [address] 06/08/2025 9:00 AM EST Office Visit [facility] 22 [place] [address] Santa Lewis MD 22 [facility], 1st [place] [address] 06/15/2025 9:00 AM EST Office Visit [facility] 22 [facility] 3rd Floor, [address] [place] [address] Anup Ward MD, MS 22 [facility], [address] [address] 11/24/2025 9:00 AM EDT Office Visit [facility] Primary Care 15 [facility] [address] [place] [address] Pooja Elam MD [address] [address] documented as of this encounter Visit Diagnoses Not on filedocumented in this encounter Additional Health Concerns Assessment Noted Time PHQ-2 Depression Total Score: 0 09/24/19 19 9:43 AM EDT documented as of this encounter Care Teams Payment Rep Relationship Specialty Start Date End Date Shelby Keenan DO [address] [place] [address] [email or web address] PCP - General Family Medicine 07/11/18 08/19/20 Sivan Montgomery MD, MPH [address] [address] [email or web address] PCP - General Family Medicine 08/20/20 Ruy Darling MD [address] [place] [address] [email or web address] Historical LMR Provider 01/30/17 12/23/23 Adin Becerra MD [email or web address] Historical LMR Provider 01/30/17 02/19/22 Kathleen Lopez MD 22 [facility], [facility] [address] [place] [address] [email or web address] Historical LMR Provider 01/30/17 Weston Hamilton DO [address] [place] [address] Historical LMR Provider 01/30/1702/19 [place] [address] [email or web address] Historical LMR Provider 01/30/17 10/24/20 Santa Lewis MD [address] [place] [address], 1st [place] [address] [facility] 10/26/20 Alma Delia Castro MD 22 [facility], [address] [place] [address] Rheumatology 02/20/22 Archie Ramos MD [address] [place] [address] [address] [place] [address] Orthopedic Surgery 12/24/23 Sung Jane MD [address] [place] [address] Neurology 12/24/23 José Hernández MD [address] [place] [address] [address] [place] [address] Neurosurgery 12/24/23 Ruy Darling MD [address] [place] [address] [email or web address] Intensive Care 12/24/23 documented as of this encounter Additional Source Comments The information contained in this document represents components of the legal health record. It is not the complete legal health record.[facility]
--- OUTSIDE RECORDS SUMMARY | 2024-12-11 08:33 | XMS_ITS | Encounter Summary ---
Author Organization [facility] Address [address] [facility] [address] [place] [address] Phone Care Team Providers Care Water Safety Teacher Name Role Phone Ruy Darling MD Unavailable [phone] Adin Becerra MD Unavailable [email or web address] Kathleen Lopez MD Unavailable Weston Hamilton DO Unavailable [phone] Dionne Latif MD Unavailable [phone] Shelby Keenan DO Primary Care Provider [phone] Sivan Montgomery MD, MPH Primary Care Provid er Santa Lewis MD Unavailable [phone] Alm aDelia Castro MD Unavailable [phone] Archie Ramos MD Unavailable [phone] Sung Jane MD Unavailable José Hernández MD Unavailable Ruy Darling MD Unavailable [phone] Encounter Details Date Type Department Care Team (Latest Contact Info) Description 03/05/2019 Transcribe Orders [facility] Laboratory 30 [place] [address] Taylor Beach MD [address] [place] [address] [email or web address] Essential hypertension Social History Tobacco Use Types [...] 12/04/2024 Procedure Pass [facility] [address] [place] [address] 01/01/2025 9:30 AM EDT Appointment [facility] [address] [place] [address] Pooja Elam MD [address] [place] [address] 01/08/2025 9:00 AM EDT Nurse Only [facility] [place] [facility] [address] [facility] 201 [place] [address] Sivan Montgomery MD, MPH [address] [address] [email or web address] 04/01/2025 8:00 AM EST Office Visit [facility] Rheumatology 22 [place] [address] Alma Delia Castro MD [address] [place] [address] 203 [place] [address] [email or web address] 05/15/2025 1:20 PM EST Office Visit [facility] [address] 3rd Floor, [address] [place] [address] Juan Burns MD 22 [facility], [address] [place] [address] 05/26/2025 8:00 AM EST Office Visit [facility] [address] [place] [address] Pooja Elam MD [address] [address] 06/08/2025 9:00 AM EST Office Visit [facility] [address] [place] [address] Santa Lewis MD 22 [facility], 1st [place] [address] 06/15/2025 9:00 AM EST Office Visit [facility] 22 [facility] 3rd Floor, [address] [place] [address] Anup Ward MD, MS 22 [facility], [address] [place] [address] 11/24/2025 9:00 AM EDT Office Visit [facility] Primary Care [address] [place] [address] Pooja Elam MD [address] [address] documented as of this encounter Procedures Procedure Name Priority Date/Time Associated Diagnosis Comments COMPREHENSIVE METABOLIC PANEL Routine 03/05/2019 7:40 AM EST Essential hypertension documented in this encounter Results * (ABNORMAL) Comprehensive metabolic panel (03/05/2019 7:40 AM EST) SODIUM 139 133 - 146 mmol/L [facility] POTASSIUM 4.1 3.3 - 5.1 mmol/L [facility] CHLORIDE 99 96 - 108 mmol/L [facility] CO2 26 21 - 35 mmol/L [facility] BUN 12 6 - 19 mg/dL [facility] CREATININE 0.60 0.5 - 1.5 mg/dL [facility] GLUCOSE 229(H) 70 - 99 mg/dL [facility] ALBUMIN 4.6 3.9 - 4.8 g/dL [facility] TOTAL PROTEIN 7.8 6.5 - 8.0 g/dL [facility] CALCIUM 9.8 8.4 - 10.3 mg/dL [facility] ALKALINE PHOSPHATASE 123(H) 39 - 117 U/L [facility] TOTAL BILIRUBIN 0.4 0.0 - 1.2 mg/dL [facility] AST 29 0 - 37 U/L [facility] ALT 60(H) 0 - 40 U/L [facility] GLOBULIN 3.2 1 - 4.8 g/dL [facility] EGFR 95 >59 mL/min/1.7 3m2 [facility] Comment:If patient is black, multiply result by 1.159. Estimated glomerular filtration rate calculated using the CKD-EPI equation. ANION GAP 18 10 - 20 mmol/L [facility] Blood 03/05/2019 7:40 AM EST 03/05/2019 7:42 AM EST us Taylor Beach MD LAB BLOOD ORDERABLES Fin al Result [address] [address] documented in this encounter Visit Diagnoses Diagnosis Essential hypertension Unspecified essential hypertension documented in this encounter Additional Health Concerns Assessment Noted Time PHQ-2 Depression Total Score: 0 09/24/19 19 9:43 AM EDT documented as of this encounter Care Teams Water Safety Teacher Relationship Specialty Start Date End Date Shelby Keenan DO [address] [place] [address] [email or web address] PCP - General Family Medicine 07/11/18 08/19/20 Sivan Montgomery MD, MPH [address] [address] [email or web address] PCP - General Family Medicine 08/20/20 Ruy Darling MD [address] [place] [address] [email or web address] Historical LMR Provider 01/30/17 12/23/23 Adin Becerra MD [email or web address] Historical LMR Provider 01/30/17 02/19/22 Kathleen Lopez MD 22 [facility], [facility] [address] [place] [address] [email or web address] Historical LMR Provider 01/30/17 Weston Hamilton DO [address] [place] [address] Historical LMR Provider 01/30/1702/19 [place] [address] [email or web address] Historical LMR Provider 01/30/17 10/24/20 Santa Lewis MD 22 [facility], 1st [place] [address] Endocrinology 10/26/20 Alma Delia Castro MD 22 [facility], [address] [place] [address] Rheumatology 02/20/22 Archie Ramos MD [address] [place] [address] [address] [place] [address] Orthopedic Surgery 12/24/23 Sung Jane MD [address] [place] [address] Neurology 12/24/23 José Hernández MD [address] [place] [address] [address] [place] [address] Neurosurgery 12/24/23 Ruy Darling MD [address] [place] [address] Intensive Care 12/24/23 documented as of this encounter Additional Source Comments The information contained in this document represents components of the legal health record. It is not the complete legal health record.[facility]
--- OUTSIDE RECORDS SUMMARY | 2024-12-11 08:33 | XMS_ITS | Encounter Summary ---
Author Organization [facility] Address [address] [facility] [address] [place] [address] Phone Care Team Providers Care Beamster Name Role Phone Kathleen Lopez MD Unavailable Sivan Montgomery MD, MPH Primary Care Provid er Santa Lewis MD Unavailable [phone] Alma Delia Castro MD Unavailable Archie Ramos MD Unavailable [phone] Sung Jane MD Unavai lable José Hernández MD Unavailable [phone] Ruy Darling MD Unavailable [phone] Encounter Details Date Type Department Care Team (Latest Contact Info) Description 02/20/2024 Transcribe Orders [facility] Laboratory [address] [id number] Mare Drake PA 10 [place], [place] [id number] Familial Mediterranean fever (Primary Dx) Social History [...] 12/04/2024 Procedure Pass [facility] 30 [place] [address] 01/01/2025 9:30 AM EDT Appointment [facility] Echo Lab 30 [place] [address] Pooja Elam MD [address] [address] 01/08/2025 9:00 AM EDT Nurse Only [facility] [address] [facility] [address] [place] [address] Sivan Montgomery MD, MPH [address] [address] 04/01/2025 8:00 AM EST Office Visit [facility] Rheumatology [address] [place] [address] Alma Delia Castro MD [address] [facility], [address] [place] [address] [email or web address] 05/15/2025 1:20 PM EST Office Visit [facility] [address] 3[address] Floor, [address] [place] [address] Juan Burns MD 22 [facility], [address] [place] [address] 05/26/2025 8:00 AM EST Office Visit [facility] Primary Care 15 [facility] [address] [place] [address] Pooja Elam MD [address] [address] 06/08/2025 9:00 AM EST Office Visit [facility] 22 [place] [address] Santa Lewis MD 22 [facility], 1st [place] [address] 06/15/2025 9:00 AM EST Office Visit [facility] 22 [facility] 3rd Floor, [address] [place] [address] Anup Ward MD, MS [address] [facility], [address] [place] [address] 11/24/2025 9:00 AM EDT Office Visit [facility] Primary Care [address] [facility] [address] [place] [address] Pooja Elam MD [address] [address] documented as of this encounter Results * Liver fibrosis test (02/20/2024 7:54 AM EST) Fibrosis score 0.18 [facility] Interpretation (Fibrosis) SEE NOTE [facility] [...] HCV Fibrosis Grade F0 Q [facility] NECROINFLAMM SCORE 0.06 Q [facility] NECROINFLAMM GRADE A0 Q [facility] NECROINFLAMM INTERP SEE NOTE [facility]/ [facility] Comment: (NOTE) no activity ActiTest Score (a) [...] A2 Macroglobulin 187 106 - 279 mg/dL [facility]/ [facility] Haptoglobin 179 43 - 212 mg/dL [facility] Apolipoprotein A1 157 101 - 198 mg/dL [facility] TOTAL BILIRUBIN 0.5 0.2 - 1.2 mg/dL [facility]/ [facility] GGT 21 3 - 65 U/L [facility] ALT 18 6 - 29 U/L [facility] Specimen/Product ID [id number] [facility] Comments (Chemistry) SEE NOTE [facility] Comment: (NOTE) The reliability of results is [...] The performance characteristics have been determined by [facility]. It has not been cleared or approved by the U.S. Food and Drug Administration. Performance characteristics refer to the analytical performance of the test. [employer], the associated logo, [employer]Five and all associated [employer] galvez are the registered trademarks of [employer]. All third alliance party galvez - (R) and (TM) - are the property of their respective owners. (C) 5355-6793 [employer]. All rights reserved. Blood 02/20/2024 7:54 AM EST 02/20/2024 8:01 AM EST Mare JOSHI LAB BLOOD ORDERABLES Final Result [employer] [facility] [address] [place] [address], [facility] [phone] * (ABNORMAL) Comprehensive metabolic panel (02/20/2024 7:54 AM EST) SODIUM 134 133 - 146 mmol/L [facility] POTASSIUM 3.6 3.3 - 5.1 mmol/L [facility] CHLORIDE 96 96 - 108 mmol/L [facility] CO2 26 21 - 35 mmol/L [facility] BUN 23(H) 6 - 19 mg/dL [facility] CREATININE 0.90 0.5 - 1.5 mg/dL [facility] GLUCOSE 98 70 - 99 mg/dL [facility] ALBUMIN 4.4 3.9 - 4.8 g/dL [facility] TOTAL PROTEIN 7.6 6.5 - 8.0 g/dL [facility] CALCIUM 10.1 8.4 - 10.3 mg/dL [facility] ALKALINE PHOSPHATASE 117 39 - 117 U/L [facility] TOTAL BILIRUBIN 0.4 0.0 - 1.2 mg/dL [facility] AST 15 0 - 37 U/L [facility] ALT 22 0 - 40 U/L [facility] GLOBULIN 3.2 1 - 4.8 g/dL [facility] EGFR 68 >59 mL/min/1.7 3m2 [facility] Comment:Estimated glomerular filtration rate calculated using the CKD-EPI refit equation. ANION GAP 16 10 - 20 mmol/L [facility] Blood 02/20/2024 7:54 AM EST 02/20/2024 8:02 AM EST us Mare JOSHI LAB BLOOD ORDERABLES Final Result Performing Organization Address City/State/[facility] Co de Phone Number [address] [address] * (ABNORMAL) CBC (02/20/2024 7:54 AM EST) WBC 8.00 4.00 - 11.00 K/uL [facility] RBC 4.70 4.00 - 5.20 M/uL [facility] HGB 14.7 12.0 - 16.0 g/dL [facility] HCT 42.5 36.0 - 46.0 % [facility] PLT 239 150 - 450 K/uL [facility] MCV 90.4 80.0 - 100.0 fL [facility] MCH 31.3(H) 27.0 - 31.0 pg [facility] MCHC 34.6 32.0 - 36.0 g/dL [facility] RDW 13.2 11.5 - 14.5 % [facility] MPV 12.8(H) 8.4 - 12.0 fL [facility] NRBC 0.00 0.00 /100 WBCs [facility] ABSOLUTE NRBC 0.00 0.00 K/uL [facility] Blood 02/20/2024 7:54 AM EST 02/20/2024 8:02 AM EST us Mare JOSHI LAB BLOOD ORDERABLES Final Result [facility] 30 [place] [address] documented in this encounter Visit Diagnoses Diagnosis Familial Mediterranean fever- Primary documented in this encounter Additional Health Concerns Assessment Noted Time PHQ-2 Depression Total Score: 0 11/21/19 24 9:11 AM EDT documented as of this encounter Care Teams Beamster Relationship Specialty Start Date End Date Sivan Montgomery MD, MPH [address] [facility] [address] [place] [address] [email or web address] PCP - General Family Medicine 08/20/20 Kathleen Lopez MD [address] [facility], [address] [place] [address] Historical LMR Provider 01/30/17 Santa Lewis MD 22 [facility], 1st [place] [address] Endocrinology 10/26/20 Alma Delia Castro MD 22 [facility], [facility] 203 [place] [address] Rheumatology 02/20/22 Archie Ramos MD [address] [place] [address] 203 [place] [address] Orthopedic Surgery 12/24/23 Sung Jane MD [address] [place] [address] 150 [place] [address] Neurology 12/24/23 José Hernández MD [address] [place] [address] [address] [place] [address] Neurosurgery 12/24/23 Ruy Darling MD [address] [place] [address] [email or web address] Intensive Care 12/24/23 documented as of this encounter Additional Source Comments The information contained in this document represents components of the legal health record. It is not the complete legal health record.[facility]
--- OUTSIDE RECORDS SUMMARY | 2024-12-11 08:33 | XMS_ITS | Encounter Summary ---
Author Organization [facility] Address [address] [facility] [address] [place] [address] Phone Care Team Providers Care Email Manager Name Role Phone Ruy Darling MD Unavailable [phone] Adin Becerra MD Unavailable [email or web address] Kathleen Lopez MD Unavailable Weston Hamilton DO Unavailable [phone] Dionne Latif MD Unavailable Shelby Keenan DO Primary Care Provider [phone] Sivan Montgomery MD, MPH Primary Care Provid er Santa Lewis MD Unavailable [phone] Alma Delia Castro MD Unavailable Archie Ramos MD Unavailable [phone] Sung Jane MD Unavailable José Hernández MD Unavailable Ruy Darling MD Unavailable [phone] Encounter Details Date Type Department Care Team (Late st Contact Info) Description 01/09/2019 Transcribe [facility] [address] [place] [address] 3rd Floor, [address] [place] [address] Taylor Beach MD [address] [place] [address] [email or web address] Social History Tobacco Use Types Packs/Day [...] 12/04/2024 Procedure Pass [facility] 30 [place] [address] 01/01/2025 9:30 AM EDT Appointment [facility] 30 [place] [address] Pooja Elam MD [address] [address] 01/08/2025 9:00 AM EDT Nurse Only [facility] [address] [address] Sivan [place] MD, MPH [address] [address] [email or web address] 04/01/2025 8:00 AM EST Office Visit [facility] Rheumatology [address] [place] [address] Alma Delia Castro MD 22 [facility] 203 [place] [address] [email or web address] 05/15/2025 1:20 PM EST Office Visit [facility] [address] 3rd Floor, [address] [place] [address] Juan Burns MD 22 [facility], [address] [place] [address] 05/26/2025 8:00 AM EST Office Visit [facility] Primary Care [address] [address] [place] [address] Pooja Elam MD [address] [address] 06/08/2025 9:00 AM EST Office Visit [facility] [address] [place] [address] Santa Lewis MD 22 [facility], 1st [place] [address] 06/15/2025 9:00 AM EST Office Visit [facility] [address] [facility] 3rd Floor, [address] [place] [address] Anup Ward MD, MS 22 [facility], [address] [place] [address] 11/24/2025 9:00 AM EDT Office Visit [facility] Primary Care [address] [place] [address] [address] Pooja Elam MD [address] [address] documented as of this encounter Visit Diagnoses Not on filedocumented in this encounter Additional Health Concerns Assessment Noted Time PHQ-2 Depression Total Score: 0 09/24/19 19 9:43 AM EDT documented as of this encounter Care Teams Email Manager Relationship Specialty Start Date End Date Shelby Keenan DO [address] [place] [address] [email or web address] PCP - General Family Medicine 07/11/18 08/19/20 Sivan Montgomery MD, MPH [address] [place] [address] [email or web address] PCP - General Family Medicine 08/20/20 Ruy Darling MD [address] [place] [address] [email or web address] Historical LMR Provider 01/30/17 12/23/23 Adin Becerra MD [email or web address] Historical LMR Provider 01/30/17 02/19/22 Kathleen Lopez MD [address] [place] [address] [address] [place] [address] [email or web address] Historical LMR Provider 01/30/17 Weston Hamilton DO [address] [place] [address] Historical LMR Provider 01/30/1702/19 [place] [address] [email or web address] Historical LMR Provider 01/30/17 10/24/20 Santa Lewis MD [address] [place] [address], 1st [place] [address] Endocrinology 10/26/20 Alma Delia Castro MD 22 [facility], [address] [place] [address] Rheumatology 02/20/22 Archie Ramos MD [address] [place] [address] [address] [place] [address] Orthopedic Surgery 12/24/23 Sung Jane MD [address] [place] [address] Neurology 12/24/23 José Hernández MD [address] [place] [address] [address] [place] [address] Neurosurgery 12/24/23 Ruy Darling MD [address] [place] [address] Intensive Care 12/24/23 documented as of this encounter Additional Source Comments The information contained in this document represents components of the legal health record. It is not the complete legal health record.[facility]
--- OUTSIDE RECORDS SUMMARY | 2024-12-11 08:33 | XMS_ITS | Encounter Summary ---
Author Organization [facility] Address [address] [place] [address] Phone Care Team Providers Care Health And Safety Trainer Name Role Phone Ruy Darling MD Unavailable [phone] Adin Becerra MD Unavailable [email or web address] Kathleen Lopez MD Unavailable Weston Hamilton DO Unavailable [phone] Sivan Montgomery MD, MPH Primary Care Provid er Santa Lewis MD Unavailable [phone] Alma Delia Castro MD Unavailable Archie Ramos MD Unavailable Sung Jane MD Unavailable José Hernández MD Unavailable [phone] Ruy Darling MD Unavailable [phone] Encounter Details Date Type Department Care Team (Late st Contact Info) Description 09/13/2021 Procedure Pass [facility] Endoscopy Admitting Dept Virtual Department [address] [place] [address] Social History Tobacco Use Types [...] high school, GED, job training, learning the Malagasy language, technical skills, or developing parenting skills)? [...] 12/04/2024 Procedure Pass [facility] [address] [place] [address] 01/01/2025 9:30 AM EDT Appointment [facility] [address] [place] [address] Pooja Elam MD [address] [place], [place] [address] [address] 01/08/2025 9:00 AM EDT Nurse Only [facility] Primary Care [address] [facility] [address] [place] [address] Sivan Montgomery MD, MPH [address] [facility] [place] [address] 04/01/2025 8:00 AM EST Office Visit [facility] Rheumatology [address] [place] [address] Alma Delia Castro MD [address] [facility], [address] [place] [address] [email or web address] 05/15/2025 1:20 PM EST Office Visit [facility] [address] [place] [address] 3rd Floor, [address] [place] [address] Juan Burns MD [address] [facility], [address] [place] [address] 05/26/2025 8:00 AM EST Office Visit [facility] Primary Care [address] [facility] [address] [place] [address] Pooja Elam MD 15 [facility] 201 [place] [address] 06/08/2025 9:00 AM EST Office Visit [facility] [address] [place] [address] Santa Lewis MD [address] [facility], 1st [place] [address] 06/15/2025 9:00 AM EST Office Visit [facility] [address] [facility] 3rd Floor, [address] [place] [address] Anup Ward MD, MS [address] [facility], [address] [place] [address] [email or web address] 11/24/2025 9:00 AM EDT Office Visit [facility] Primary Care [address] [facility] [address] [place] [address] Pooja Elam MD 15 [facility] [address] [place] [address] [email or web address] documented as of this encounter Visit Diagnoses Not on filedocumented in this encounter Additional Health Concerns Assessment Noted Time PHQ-2 Depression Total Score: 0 09/24/19 19 9:43 AM EDT documented as of this encounter Care Teams Health And Safety Trainer Relationship Specialty Start Date End Date Sivan Montgomery MD, MPH [address] [facility] [address] [place] [address] [email or web address] PCP - General Family Medicine 08/20/20 Ruy Darling MD [address] [place] [address] 2[address] [place] [address] [email or web address] Historical LMR Provider 01/30/17 12/23/23 Adin Becerra MD [email or web address] Historical LMR Provider 01/30/17 02/19/22 Kathleen Lopez MD [address] [facility], [address] [place] [address] [email or web address] Historical LMR Provider 01/30/17 Alfonso Weston [address] [place] [address] [address] [place] [address] Historical LMR Provider 01/30/1702/19 Santa Lewis MD [address] [facility], 1st [place] [address] Endocrinology 10/26/20 Alma Delia Castro MD [address] [facility], [address] [place] [address] Rheumatology 02/20/22 Archie Ramos MD [address] [place] [address] [address] [place] [address] Orthopedic Surgery 12/24/23 Sung Jane MD [address] [place] [address] [address] [place] [address] Neurology 12/24/23 José Hernández MD [address] [place] [address] [address] [place] [address] Neurosurgery 12/24/23 Ruy Darling MD [address] [place] [address] Intensive Care 12/24/23 documented as of this encounter Additional Source Comments The information contained in this document represents components of the legal health record. It is not the complete legal health record.[facility]
--- OUTSIDE RECORDS SUMMARY | 2024-12-11 08:33 | XMS_ITS | Encounter Summary ---
Author Organization [facility] Address [address] [facility] [address] [place] [address] Phone Care Team Providers Care Multi Share Program Coordinator Name Role Phone Ruy Darling MD Unavailable [phone] Adin Becerra MD Unavailable [email or web address] Kathleen Lopez MD Unavailable Weston Hamilton DO Unavailable [phone] Dionne Latif MD Unavailable Shelby Keenan DO Primary Care Provider [phone] Sivan Montgomery MD, MPH Primary Care Provid er Santa Lewis MD Unavailable [phone] Alma Delia Castro MD Unavailable Archie Ramos MD Unavailable Sung Jane MD Unavailable José Hernández MD Unavailable Ruy Darling MD Unavailable [phone] Encounter Details Date Type Department Care Team (Late st Contact Info) Description 01/28/2019 Procedure Pass [facility] Cardiovascular And Interventional Radiology [address] [place], [place] [id number] Social History Tobacco Use Types Packs/Day Years [...] 12/04/2024 Procedure Pass [facility] [address] [place] [address] 01/01/2025 9:30 AM EDT Appointment [facility] [address] [place] [address] Pooja Elam MD [address] [address] 01/08/2025 9:00 AM EDT Nurse Only [facility] Primary Care 15 [facility] 201 [place] [address] Sivan Montgomery MD, MPH [address] [address] 04/01/2025 8:00 AM EST Office Visit [facility] Rheumatology [address] [place] [address] Alma Delia Castro MD 22 [facility] 203 [place] [address] [email or web address] 05/15/2025 1:20 PM EST Office Visit [facility] [address] [facility] 3rd Floor, [address] [place] [address] Juan Burns MD 22 [facility], [address] [place] [address] 05/26/2025 8:00 AM EST Office Visit [facility] Primary Care 15 [facility] 201 [place] [address] Pooja Elam MD 15 [facility]. [address] [place] [address] 06/08/2025 9:00 AM EST Office Visit [facility] 22 [place] [address] Santa Lewis MD 22 [facility], 1st [place] [address] 06/15/2025 9:00 AM EST Office Visit [facility] [address] [facility] 3rd Floor, [address] [place] [address] Anup [place] MD, MS 22 [facility], [address] [address] 11/24/2025 9:00 AM EDT Office Visit [facility] Primary Care [address] [place] [address] Pooja Elam MD [address] [address] documented as of this encounter Visit Diagnoses Not on filedocumented in this encounter Additional Health Concerns Assessment Noted Time PHQ-2 Depression Total Score: 0 09/24/19 19 9:43 AM EDT documented as of this encounter Care Teams Multi Share Program Coordinator Relationship Specialty Start Date End Date Shelby Keenan DO [address] [place] [address] [email or web address] PCP - General Family Medicine 07/11/18 08/19/20 Sivan Montgomery MD, MPH [address] [place] [address] [email or web address] PCP - General Family Medicine 08/20/20 Ruy Darling MD [address] [place] [address] [email or web address] Historical LMR Provider 01/30/17 12/23/23 Adin Becerra MD [email or web address] Historical LMR Provider 01/30/17 02/19/22 Kathleen Lopez MD [address] [place] [address] [address] [place] [address] [email or web address] Historical LMR Provider 01/30/17 Weston Hamilton DO [address] [place] [address] Historical LMR Provider 01/30/1702/19 [place] [address] [email or web address] Historical LMR Provider 01/30/17 10/24/20 Santa Lewis MD [address] [place] [address], [facility] [place] [address] [email or web address] Endocrinology 10/26/20 KlAlma Delia Barrett MD 22 [facility], [address] [place] [address] Rheumatology 02/20/22 Archie Ramos MD [address] [place] [address] [address] [place] [address] Orthopedic Surgery 12/24/23 Sung Jane MD [address] [place] [address] Neurology 12/24/23 José Hernández MD [address] [place] [address] [address] [place] [address] Neurosurgery 12/24/23 Ruy Darling MD [address] [place] [address] [email or web address] Intensive Care 12/24/23 documented as of this encounter Additional Source Comments The information contained in this document represents components of the legal health record. It is not the complete legal health record.[facility]
== END 2024-12-09 08:09 | disposition home or self-care (01) ==
LOC: HO.HOSX 08:08
PROVIDERS: Visit Provider Orthopaedic Surgery
DX: M25.512 Pain in left shoulder (principal); Z96.612 Presence of left artificial shoulder joint; Z79.899 Other long term (current) drug therapy
CPT/HCPCS: 73030; 99212